=== PATIENT | male | born 1940 | race Caucasian/White ===

== ENCOUNTER 2016-06-20 11:48 | Inpatient (IN) | payer OTHER ==
[~2016-06-20] VITALS: Ht 170.2 cm; Wt 76.0 kg
[2016-06-20] MEDS ORDERED: SODIUM CHLORIDE 0.9% 1000ML 1,000 ML IV STA (13:53)
[2016-06-20] MEDS ORDERED: SODIUM CHLORIDE 0.9% 1000ML 250 ML IV STA (13:53)
--- NOTE | 2016-06-20 14:15 | DIAGNOSTIC IMAGING REPORT ---
CHEST ONE VIEW PORTABLE CLINICAL HISTORY: Atypical chest pain. Cold symptoms. COMPARISON STUDY: No previous studies for comparison. FINDINGS: The heart is mildly enlarged. There is no failure. There is no focal pulmonary consolidation. There are no pleural effusions.[ IMPRESSION: Mild cardiomegaly. No acute findings. Electronically signed by: Keaton Ruiz M.D. 06/20/2016 2:14 PM Dictated Date/Time: 06/20/2016 2:13 PM
[2016-06-20 14:18] LABS: BASO % 0.1 %; BASO ABS # 0.01 K/uL (0-0.2); COMPLETE YES; EOS % 0.3 %; IG% 0.3 %; LYMPH % 9.6 %; LYMPH ABS # 1.04 K/uL (1.2-3.4); MEAN CELL VOLUME 90.2 fL (80-100); MEAN CORPUSCULAR HEMOGLOBIN 31.2 pg (25-34); MEAN CORPUSCULAR HGB CONC 34.6 g/dl (32-36); MEAN PLATELET VOLUME 9.8 fL (7.4-10.4); MONO % 11.5 %; NEUT % 78.2 %; PLATELET COUNT 177 K/uL (130-400); WHITE BLOOD COUNT 10.79 K/uL (4.8-10.8)
[2016-06-20 14:27] LABS: INR 1.5 (0.9-1.1); PARTIAL THROMBOPLASTIN RATIO 1.6; PROTHROMBIN TIME (PATIENT) 16.3 SECONDS (9.0-12.0)
[2016-06-20 14:42] LABS: CREATININE 0.94 mg/dl (0.60-1.40)
[2016-06-20 14:43] LABS: BUN/CREATININE RATIO 12.1 (10-20); CALCIUM 8.6 mg/dl (8.5-10.1); POTASSIUM 3.4 mmol/L (3.5-5.1)
[2016-06-20] MEDS ORDERED: LNX125 PO (14:47)
[2016-06-20] MEDS ORDERED: LEVO88TA PO (14:47)
[2016-06-20] MEDS ORDERED: POTA8CAP6 PO (14:47)
[2016-06-20] MEDS ORDERED: CARV3.12 PO (14:47)
[2016-06-20] MEDS ORDERED: WARF4TAB8 PO (14:47)
[2016-06-20] MEDS ORDERED: WARF2TAB8 PO (14:47)
[2016-06-20 14:48] LABS: CKMB/CK RATIO 1.1 (0-3.0)
[2016-06-20] MEDS ORDERED: OPTIRAY 320 IV PRN (16:45)
--- NOTE | 2016-06-20 17:35 | DIAGNOSTIC IMAGING REPORT ---
CT OF THE ABDOMEN AND PELVIS WITH CONTRAST CLINICAL HISTORY: Constipation. Pain. Evaluate for rectal abscess or bowel obstruction. COMPARISON STUDY: None. TECHNIQUE: Following IV administration of 116 mL of [id number], axial images of the abdomen and pelvis were obtained from the lung bases to the proximal femurs. Images were reviewed in the axial, sagittal, and coronal planes. IV contrast was administered without complication. CT DOSE: 658.20 mGycm FINDINGS: Visualized portions of the lower chest demonstrate moderate cardiomegaly. The liver, spleen, adrenal glands and pancreas are unremarkable. There is multifocal scarring within the kidneys. There is no hydronephrosis. There is no evidence for a bowel obstruction. The caliber of small and large bowel is normal. There are prominent bilateral inguinal lymph nodes, the upper limits of normal for size. There is mild perirectal and perianal infiltration which extends into both buttocks, slightly greater on the right. Note is made of a small 1.5 x 1 cm subcutaneous gas and fluid containing collection of the medial right buttock. No additional fluid collection is identified on this exam. There may be mild rectal wall thickening which is accentuated by underdistention. No suspicious osseous lesions are present. There is severe arthritis of the left hip with flattening of the femoral head and complete loss of the joint space. There is moderate joint space narrowing of the right hip with mixed subchondral lucency and sclerosis within the right femoral head. The bladder is moderately distended. IMPRESSION: 1. Small 1.5 x 1 cm subcutaneous fluid and gas containing collection within the medial fold of the right buttock which reflects a tiny buttock/perianal abscess. Moderate adjacent infiltration suggests cellulitis. Possible tiny associated right perianal fistula. Mild rectal wall thickening. 2. No bowel obstruction. 3. Moderate distention of the bladder. Electronically signed by: Yao Velez M.D. 06/20/2016 5:34 PM Dictated Date/Time: 06/20/2016 5:26 PM
[2016-06-20] MEDS ORDERED: AZTREONAM IV 2,000 MG in DEXTROSE 5% 100ML 100 ML IV STA (17:59)
[2016-06-20] MEDS ORDERED: CLINDAMYCIN IV 900 MG in DEXTROSE 5% ADD-VANTAGE 100ML 100 ML IV ONE (18:00)
[2016-06-20] MEDS ORDERED: ONDANSETRON INJ 2 MG/ML 2 ML VIAL IV PRN (18:45)
[2016-06-20] MEDS ORDERED: ACETAMINOPHEN 325 MG TAB PO PRN (18:45)
--- NOTE | 2016-06-20 19:08 | History and Physical ---
History & Physical Date & Time of Service: Jun 20, 2016 at 18:56 Chief Complaint: Bad Cold Primary Care Physician: Isaac Still M.D. History of Present Illness Source: patient pt is a 75 year old male who presents to ER for 2 days history rectal pain, pt denies fever, no diarrhea, Family History Patient reports no known family medical history. Social History Smoking Status: Never Smoker Allergies Coded Allergies: Amoxicillin (Verified Allergy, Unknown, ., 06/20/16) Cephalexin (Verified Allergy, Unknown, ., 06/20/16) Clavulanic Acid (Verified Allergy, Unknown, ., 06/20/16) Penicillins (Verified Allergy, Unknown, ., 06/20/16) Home Medications Scheduled Atorvastatin (Lipitor), 10 MG PO DAILY Carvedilol (Coreg), 3.125 MG PO BID Digoxin (Digoxin), 0.125 MG PO DAILY Levothyroxine Sodium (Synthroid), 88 MCG PO DAILY Potassium Chloride (Klor-Con Ext Rel), 8 MEQ PO BID Spironolactone (Spironolactone), 25 MG PO BID Warfarin Sod (Jantoven), 2 MG PO Q2D Warfarin Sod (Jantoven), 4 MG PO Q2D Review of Systems Constitutional: No chills, No fatigue, No fever, No problem reported, No sweats , No weakness, No weight loss Respiratory: No cough, No dyspnea at rest, No dyspnea on exertion, No hemoptysis, No problem reported, No shortness of breath, No sputum, No wheezing Cardiovascular: No PND, No chest pain, No claudication, No edema, No orthopnea , No palpitations, No problem reported Abdomen: No GI bleeding, No constipation, No diarrhea, No nausea, No pain, No problem reported, No vomiting Musculoskeletal: No calf pain, No joint pain, No muscle pain, No problem reported, No swelling Genitourinary - Male: No dysuria, No hematuria, No impotence, No lesions, No penile discharge, No problem reported, No urinary frequency, No urinary hesitancy, No urinary incontinence, No urinary retention, No urinary urgency Neurologic: No balance problems, No memory loss, No numbness/tingling, No paralysis, No problem reported, No vertigo, No weakness Psychiatric: No anhedonism, No anxiety, No depression symptoms, No insomnia, No problem reported, No substance abuse Endocrine: No excessive thirst, No excessive urination, No fatigue, No problem reported Physical Exam Vital Signs Date Time Temp Pulse Resp B/P Pulse Ox O2 Delivery O2 Flow Rate FiO2 06/20/16 17:56 95 06/20/16 17:53 90 41 108/64 94 06/20/16 16:43 89 30 94 06/20/16 16:38 86 23 95 06/20/16 16:33 101 29 94 06/20/16 16:28 98 34 95 06/20/16 16:23 102 19 94 06/20/16 16:18 98 39 93 06/20/16 16:13 91 41 94 06/20/16 16:08 100 12 95 06/20/16 16:03 90 29 94 06/20/16 15:58 85 38 96 06/20/16 15:53 91 41 95 06/20/16 15:48 95 23 93 06/20/16 15:43 89 26 95 06/20/16 15:43 91 22 135/83 96 Room Air 06/20/16 15:41 135/83 06/20/16 15:38 96 23 06/20/16 15:33 92 41 06/20/16 15:28 90 37 06/20/16 15:23 82 37 06/20/16 15:18 94 32 06/20/16 15:13 86 35 06/20/16 15:08 90 30 06/20/16 15:03 85 38 06/20/16 14:58 87 23 06/20/16 14:53 88 34 06/20/16 14:48 84 36 06/20/16 14:43 83 38 06/20/16 14:38 94 24 06/20/16 14:33 100 21 06/20/16 14:28 95 40 06/20/16 14:23 86 23 06/20/16 14:18 95 22 06/20/16 14:13 96 27 06/20/16 14:08 92 36 06/20/16 14:03 102 31 06/20/16 13:58 99 25 06/20/16 13:53 86 31 06/20/16 13:48 99 24 95 06/20/16 13:46 94 18 136/73 06/20/16 13:44 88 06/20/16 13:43 95 23 92 06/20/16 13:38 136/73 06/20/16 12:02 94 Room Air 06/20/16 11:57 37.2 92 20 121/74 94 Room Air General Appearance: WD/WN, no apparent distress Neck: supple Respiratory/Chest: chest non-tender, lungs clear Cardiovascular: regular rate, rhythm, no edema, no JVD Abdomen/GI: normal bowel sounds, non tender, soft, no organomegaly (some drainage from small perirectal abscess, some redness around abscess, ) Genitourinary - Male: normal male genitalia Extremities/Musculoskelatal: normal inspection, no calf tenderness, normal capillary refill Neurologic/Psych: alert, normal mood/affect Diagnostics Laboratory Results Results Past 24 Hours Test 06/20/16 13:53 06/20/16 14:00 06/20/16 14:04 06/20/16 14:17 Range/Units Creatine Kinase MB Ratio 1.1 0-3.0 White Blood Count 10.79 4.8-10.8 K/uL Red Blood Count 4.10 4.7-6.1 M/uL Hemoglobin 12.8 14.0-18.0 g/dL Hematocrit 37.0 42-52 % Mean Corpuscular Volume 90.2 80-100 fL Mean Corpuscular Hemoglobin 31.2 25-34 pg Mean Corpuscular Hemoglobin Concent 34.6 32-36 g/dl Platelet Count 177 130-400 K/uL Mean Platelet Volume 9.8 7.4-10.4 fL Neutrophils (%) (Auto) 78.2 % Lymphocytes (%) (Auto) 9.6 % Monocytes (%) (Auto) 11.5 % Eosinophils (%) (Auto) 0.3 % Basophils (%) (Auto) 0.1 % Neutrophils # (Auto) 8.44 1.4-6.5 K/uL Lymphocytes # (Auto) 1.04 1.2-3.4 K/uL Monocytes # (Auto) 1.24 0.11-0.59 K/uL Eosinophils # (Auto) 0.03 0-0.5 K/uL Basophils # (Auto) 0.01 0-0.2 K/uL RDW Standard Deviation 44.8 36.4-46.3 fL RDW Coefficient of Variation 13.5 11.5-14.5 % Immature Granulocyte % (Auto) 0.3 % Immature Granulocyte # (Auto) 0.03 0.00-0.02 K/uL Prothrombin Time 16.3 9.0-12.0 SECONDS Prothromb Time International Ratio 1.5 0.9-1.1 Activated Partial Thromboplast Time 42.5 21.0-31.0 SECONDS Partial Thromboplastin Ratio 1.6 Sodium Level 132 136-145 mmol/L Potassium Level 3.4 3.5-5.1 mmol/L Chloride Level 94 98-107 mmol/L Carbon Dioxide Level 24 21-32 mmol/L Anion Gap 14.0 3-11 mmol/L Blood Urea Nitrogen 11 7-18 mg/dl Creatinine 0.94 0.60-1.40 mg/dl Est Creatinine Clear Calc Drug Dose 65.5 ml/min Estimated GFR () 92.9 Estimated GFR (Non- 80.1 BUN/Creatinine Ratio 12.1 10-20 Random Glucose 98 70-99 mg/dl Calcium Level 8.6 8.5-10.1 mg/dl Total Bilirubin 1.6 0.2-1 mg/dl Direct Bilirubin 0.6 0-0.2 mg/dl Aspartate Amino Transf (AST/SGOT) 33 15-37 U/L Alanine Aminotransferase (ALT/SGPT) 17 12-78 U/L Alkaline Phosphatase 59 45-117 U/L Total Creatine Kinase 167 39-308 U/L Creatine Kinase MB 1.9 0.5-3.6 ng/ml Total Protein 8.0 6.4-8.2 gm/dl Albumin 3.3 3.4-5.0 gm/dl Lipase 152 73-393 U/L Digoxin Level 0.6 0.8-2.0 ng/ml Bedside Lactic Acid Venous 1.75 0.90-1.70 mmol/L Bedside Troponin I 0.000 0-0.045 ng/ml SP-[id number]-[id number]-Type Natriuretic Peptide 2014 0-900 pg/ml Test 06/20/16 17:10 06/20/16 18:43 Range/Units Influenza Type A Antigen Neg for Influ A NEG Influenza Type B Antigen Neg for Influ B NEG Microbiology Results 06/20/16 Blood Culture, Received Pending 06/20/16 Blood Culture, Received Pending Diagnostic Radiology CT scan-IMPRESSION: 1. Small 1.5 x 1 cm subcutaneous fluid and gas containing collection within the medial fold of the right buttock which reflects a tiny buttock/perianal abscess. Moderate adjacent infiltration suggests cellulitis. Possible tiny associated right perianal fistula. Mild rectal wall thickening. 2. No bowel obstruction. 3. Moderate distention of the bladder. Impression Assessment and Plan IMP perirectal abscess and cellulitis the abscess is silt-drainage, clindamycin 150 mg po q6h x 5 days F/U clinic next Saturday VTE Prophylaxis VTE Risk Assessment Done? Y/N: Yes Risk Level: Moderate
--- NOTE | 2016-06-20 19:17 | History and Physical ---
History & Physical Date & Time of Service: Jun 20, 2016 at 18:58 Chief Complaint: Unable to Urinate or Move Bowels Primary Care Physician: Isaac Still M.D. History of Present Illness 75 year old male who presents to the ER with reports of difficulty urinating and moving his bowels. Patient reports he has not urinated or moved his bowels in 3 days. Patient has a wound on the right medical buttocks which he reports has been there for over 30 years. He reports it opens up and drains on its own from time to time. He reports it opened and started to drain today. It is not painful. Patient reports a chronic cough for the past several months which has worsened over the past few days. He reports it is occasionally productive for clear sputum. He reports worsening shortness of breath on exertion. He denies chest pain. He reports mild lightheadedness but denies dizziness or syncopal events. He reports intermittent abdominal pain. No nausea or vomiting. He denies fever and chills. Patient has chronic edema to his BLLE (R>L) and redness /venous changes which he reports is unchanged. In the ER, patient was bladder scanned for 800cc. CT abd/pelvis was done that showed a small perirectal abscess. Labs are unremarkable. CXR is clear. Vitals are stable. Past Medical/Surgical History Medical Problems: (1) Atrial fibrillation Status: Chronic (2) CAD (coronary artery disease) Permanent Comment: s/p [facility] x [facility] ~ 2005, details unknown Status: Chronic (3) HTN (hypertension) Status: Chronic (4) Hypothyroidism Status: Chronic Surgical Problems: (1) History of cataract surgery Status: Chronic (2) History of colon resection Permanent Comment: for diverticulitis Status: Chronic Family History Patient reports no known family medical history. Social History Smoking Status: Never Smoker Alcohol Use: none Allergies Coded Allergies: Amoxicillin (Verified Allergy, Unknown, ., 06/20/16) Cephalexin (Verified Allergy, Unknown, ., 06/20/16) Clavulanic Acid (Verified Allergy, Unknown, ., 06/20/16) Penicillins (Verified Allergy, Unknown, ., 06/20/16) Home Medications Scheduled Atorvastatin (Lipitor), 10 MG PO DAILY Carvedilol (Coreg), 3.125 MG PO BID Digoxin (Digoxin), 0.125 MG PO DAILY Levothyroxine Sodium (Synthroid), 88 MCG PO DAILY Potassium Chloride (Klor-Con Ext Rel), 8 MEQ PO BID Spironolactone (Spironolactone), 25 MG PO BID Warfarin Sod (Jantoven), 2 MG PO Q2D Warfarin Sod (Aprtoven), 4 MG PO Q2D Review of Systems 10 point review of systems was completed with the pertinent positives and negatives noted per the HPI Physical Exam Vital Signs Date Time Temp Pulse Resp B/P Pulse Ox O2 Delivery O2 Flow Rate FiO2 06/20/16 17:56 95 06/20/16 17:53 90 41 108/64 94 06/20/16 16:43 89 30 94 06/20/16 16:38 86 23 95 06/20/16 16:33 101 29 94 06/20/16 16:28 98 34 95 06/20/16 16:23 102 19 94 06/20/16 16:18 98 39 93 06/20/16 16:13 91 41 94 06/20/16 16:08 100 12 95 06/20/16 16:03 90 29 94 06/20/16 15:58 85 38 96 06/20/16 15:53 91 41 95 06/20/16 15:48 95 23 93 06/20/16 15:43 89 26 95 06/20/16 15:43 91 22 135/83 96 Room Air 06/20/16 15:41 135/83 06/20/16 15:38 96 23 06/20/16 15:33 92 41 06/20/16 15:28 90 37 06/20/16 15:23 82 37 06/20/16 15:18 94 32 06/20/16 15:13 86 35 06/20/16 15:08 90 30 06/20/16 15:03 85 38 06/20/16 14:58 87 23 06/20/16 14:53 88 34 06/20/16 14:48 84 36 06/20/16 14:43 83 38 06/20/16 14:38 94 24 06/20/16 14:33 100 21 06/20/16 14:28 95 40 06/20/16 14:23 86 23 06/20/16 14:18 95 22 06/20/16 14:13 96 27 06/20/16 14:08 92 36 06/20/16 14:03 102 31 06/20/16 13:58 99 25 06/20/16 13:53 86 31 06/20/16 13:48 99 24 95 06/20/16 13:46 94 18 136/73 06/20/16 13:44 88 06/20/16 13:43 95 23 92 06/20/16 13:38 136/73 06/20/16 12:02 94 Room Air 06/20/16 11:57 37.2 92 20 121/74 94 Room Air General Appearance: no apparent distress Head: normocephalic Eyes: normal inspection ENT: hearing grossly normal Neck: supple, no JVD Respiratory/Chest: lungs clear, no respiratory distress, + decreased breath sounds Cardiovascular: + irregularly irregular (rate controlled), + pertinent finding (+1-2 edema BLLE) Abdomen/GI: normal bowel sounds, non tender, soft Extremities/Musculoskelatal: normal inspection, no calf tenderness Neurologic/Psych: no motor/sensory deficits, alert, normal mood/affect, oriented x 3 Skin: + pertinent finding (ulcer noted to right medial buttock ~ rosa size with surrounding edema and erythema, bloody drainage noted on brief; BLLE with chronic venous changes and reddness) Diagnostics Laboratory Results Results Past 24 Hours Test 06/20/16 13:53 06/20/16 14:00 06/20/16 14:04 06/20/16 14:17 Range/Units Creatine Kinase MB Ratio 1.1 0-3.0 White Blood Count 10.79 4.8-10.8 K/uL Red Blood Count 4.10 4.7-6.1 M/uL Hemoglobin 12.8 14.0-18.0 g/dL Hematocrit 37.0 42-52 % Mean Corpuscular Volume 90.2 80-100 fL Mean Corpuscular Hemoglobin 31.2 25-34 pg Mean Corpuscular Hemoglobin Concent 34.6 32-36 g/dl Platelet Count 177 130-400 K/uL Mean Platelet Volume 9.8 7.4-10.4 fL Neutrophils (%) (Auto) 78.2 % Lymphocytes (%) (Auto) 9.6 % Monocytes (%) (Auto) 11.5 % Eosinophils (%) (Auto) 0.3 % Basophils (%) (Auto) 0.1 % Neutrophils # (Auto) 8.44 1.4-6.5 K/uL Lymphocytes # (Auto) 1.04 1.2-3.4 K/uL Monocytes # (Auto) 1.24 0.11-0.59 K/uL Eosinophils # (Auto) 0.03 0-0.5 K/uL Basophils # (Auto) 0.01 0-0.2 K/uL RDW Standard Deviation 44.8 36.4-46.3 fL RDW Coefficient of Variation 13.5 11.5-14.5 % Immature Granulocyte % (Auto) 0.3 % Immature Granulocyte # (Auto) 0.03 0.00-0.02 K/uL Prothrombin Time 16.3 9.0-12.0 SECONDS Prothromb Time International Ratio 1.5 0.9-1.1 Activated Partial Thromboplast Time 42.5 21.0-31.0 SECONDS Partial Thromboplastin Ratio 1.6 Sodium Level 132 136-145 mmol/L Potassium Level 3.4 3.5-5.1 mmol/L Chloride Level 94 98-107 mmol/L Carbon Dioxide Level 24 21-32 mmol/L Anion Gap 14.0 3-11 mmol/L Blood Urea Nitrogen 11 7-18 mg/dl Creatinine 0.94 0.60-1.40 mg/dl Est Creatinine Clear Calc Drug Dose 65.5 ml/min Estimated GFR () 92.9 Estimated GFR (Non- 80.1 BUN/Creatinine Ratio 12.1 10-20 Random Glucose 98 70-99 mg/dl Calcium Level 8.6 8.5-10.1 mg/dl Total Bilirubin 1.6 0.2-1 mg/dl Direct Bilirubin 0.6 0-0.2 mg/dl Aspartate Amino Transf (AST/SGOT) 33 15-37 U/L Alanine Aminotransferase (ALT/SGPT) 17 12-78 U/L Alkaline Phosphatase 59 45-117 U/L Total Creatine Kinase 167 39-308 U/L Creatine Kinase MB 1.9 0.5-3.6 ng/ml Total Protein 8.0 6.4-8.2 gm/dl Albumin 3.3 3.4-5.0 gm/dl Lipase 152 73-393 U/L Digoxin Level 0.6 0.8-2.0 ng/ml Bedside Lactic Acid Venous 1.75 0.90-1.70 mmol/L Bedside Troponin I 0.000 0-0.045 ng/ml ZY-[id number]-[id number]-Type Natriuretic Peptide 2014 0-900 pg/ml Test 06/20/16 17:10 06/20/16 18:43 Range/Units Influenza Type A Antigen Neg for Influ A NEG Influenza Type B Antigen Neg for Influ B NEG Microbiology Results 06/20/16 Blood Culture, Received Pending 06/20/16 Blood Culture, Received Pending Diagnostic Radiology CXR IMPRESSION: Mild cardiomegaly. No acute findings. CT ABD/PELVIS IMPRESSION: 1. Small 1.5 x 1 cm subcutaneous fluid and gas containing collection within the medial fold of the right buttock which reflects a tiny buttock/perianal abscess. Moderate adjacent infiltration suggests cellulitis. Possible tiny associated right perianal fistula. Mild rectal wall thickening. 2. No bowel obstruction. 3. Moderate distention of the bladder. Impression Assessment and Plan PERIRECTAL ABSCESS - admit to med/surg - patient presenting with constipation and urinary retention x 3 days; found to have draining perirectal abscess (chronic per patient) - afebrile, normal WBC, vitals stable; POC lactic acid mildly elevated, will check serum; gentle IVF - due to allergies will start patient on Clindamycin and Azactam - general surgery consult - no need for I&D currently as abscess is spontaneously draining - blood and wound cultures URINARY RETENTION - harris placed in ED - check U/A and culture - urology consult ? URI - patient reports cough x 3 days - rapid flu negative, will check PCR - CXR clear; afebrile, no leukocytosis - likely viral ATRIAL FIBRILLATION - rate controlled on dig and metoprolol, continue both - on Coumadin, INR 1.5 - dose Coumadin accordingly CAD - appears stable, no reports of chest pain - continue beta sunny and statin - follows with Dr. Vasquez HTN - BP controlled, continue carvedilol - holding spironolactone while giving IVF HYPOTHYROIDISM - continue levothyroxine DVT PROPHYLAXIS - on Coumadin CODE STATUS - Patient is a DNR as per my discussion with him. DISPO - In my clinical judgment this beneficiary meets acute admission criteria, established by [facility], that includes being hospitalized through two midnights. - May need short term rehab placement - PT/OT, case management consults placed ADDENDUM: This is a 75 year old male who presented to the ER for multiple reasons including a perirectal abscess, urinary retention, cough, and constipation; currently he is stable in bed, resting comfortably, cough persists. For the perirectal abscess - general surgery states they will not drain this, it is draining on its own; continue Clinda + Aztreonam; we can switch to PO clinda x 5 days on discharge for the urinary retention - currently with Harris in place - will consult urology for further input For A. Fib - continue Coumadin, dig, etc. PT/OT - will need rehab VTE Prophylaxis VTE Risk Assessment Done? Y/N: Yes Risk Level: Moderate
[2016-06-20 19:40] VITALS: BP 117/70; PULSE 100; TEMP 37.2; O2SAT 92; Ht 170.2 cm; Wt 76.0 kg
[2016-06-20] MEDS ORDERED: POTASSIUM CHLORIDE 20 MEQ TABCR PO ONE (20:30)
[2016-06-20] MEDS: SODIUM CHLORIDE 0.9% 1000ML 1,000 ML IV SCH (20:30)
[2016-06-20] MEDS ORDERED: DIGOXIN 0.125 MG TAB PO ONE (20:30)
[2016-06-20 21:30] VITALS: BP 111/65; PULSE 74
[2016-06-20] MEDS: WARFARIN SOD 4 MG TAB PO SCH (21:34)
[2016-06-20] MEDS: DOCUSATE SODIUM 100 MG CAP PO SCH (21:34)
[2016-06-20] MEDS: CARVEDILOL 3.125 MG TAB PO SCH (21:37)
[2016-06-20] MEDS: POLYETHYLENE (MIRALAX) 17 GM PACK PO SCH (21:41)
[2016-06-20] MEDS ORDERED: BACITRACIN OINT 15 GM TUBE EXT ONE (22:45)
[2016-06-20 22:55] VITALS: BP 106/69; PULSE 75; TEMP 36.8; O2SAT 93
[2016-06-20 22:55] LABS: URINE APPEARANCE CLEAR (CLEAR); URINE BILIRUBIN NEG (NEG); URINE COLOR YELLOW; URINE EPITHELIAL CELL AUTO 20-30 /lpf (0-5); URINE NITRITE NEG (NEG); URINE PH 5.5 (4.5-7.5); URINE SPECIFIC GRAVITY 1.042 (1.000-1.030); UROBILINOGEN POS (NEG)
[2016-06-20 22:56] LABS: MANUAL MICROSCOPIC REQUIRED? NO; REVIEW REQ? NO
[2016-06-21] VITALS (7 sets, daily range): BP systolic 101–125; BP diastolic 59–75; PULSE 64–95; TEMP 36.4–36.8; O2SAT 92–97
[2016-06-21] MEDS: AZTREONAM IV 1,000 MG in DEXTROSE 5% 100ML 100 ML IV SCH ×3 (03:25→19:24)
[2016-06-21] MEDS: CLINDAMYCIN IV 600 MG in DEXTROSE 5% ADD-VANTAGE 50ML 50 ML IV SCH ×3 (04:28→20:41)
[2016-06-21 05:37] LABS: INR 1.9 (0.9-1.1); PROTHROMBIN TIME (PATIENT) 20.8 SECONDS (9.0-12.0)
[2016-06-21] MEDS: LEVOTHYROXINE 88 MCG TAB PO SCH (05:44)
[2016-06-21 05:58] LABS: BUN/CREATININE RATIO 15.9 (10-20); CALCIUM 7.9 mg/dl (8.5-10.1); CREATININE 0.7 mg/dl (0.60-1.40); POTASSIUM 3.2 mmol/L (3.5-5.1)
--- NOTE | 2016-06-21 06:39 | Surgery Progress Note ---
Surgery Progress Note Date of Service Jun 21, 2016. Subjective + feeling well pt is doing better, less rectal pain, the wound is less drainage, Objective Vital Signs: Date Time Temp Pulse Resp B/P Pulse Ox O2 Delivery O2 Flow Rate FiO2 06/21/16 03:30 36.8 95 17 103/69 95 Room Air 06/21/16 00:37 36.7 75 17 101/59 93 06/21/16 00:05 Room Air 06/20/16 22:55 36.8 75 17 106/69 93 Room Air 06/20/16 21:36 74 06/20/16 21:30 74 111/65 06/20/16 19:45 95 41 108/64 94 06/20/16 19:40 92 Room Air 06/20/16 19:40 37.2 100 16 117/70 92 Room Air 06/20/16 19:40 37.2 100 20 117/70 92 Room Air 06/20/16 17:56 95 06/20/16 17:53 90 41 108/64 94 06/20/16 16:43 89 30 94 06/20/16 16:38 86 23 95 06/20/16 16:33 101 29 94 06/20/16 16:28 98 34 95 06/20/16 16:23 102 19 94 06/20/16 16:18 98 39 93 06/20/16 16:13 91 41 94 06/20/16 16:08 100 12 95 06/20/16 16:03 90 29 94 06/20/16 15:58 85 38 96 06/20/16 15:53 91 41 95 06/20/16 15:48 95 23 93 06/20/16 15:43 89 26 95 06/20/16 15:43 91 22 135/83 96 Room Air 06/20/16 15:41 135/83 06/20/16 15:38 96 23 06/20/16 15:33 92 41 06/20/16 15:28 90 37 06/20/16 15:23 82 37 06/20/16 15:18 94 32 06/20/16 15:13 86 35 06/20/16 15:08 90 30 06/20/16 15:03 85 38 06/20/16 14:58 87 23 06/20/16 14:53 88 34 06/20/16 14:48 84 36 06/20/16 14:43 83 38 06/20/16 14:38 94 24 06/20/16 14:33 100 21 06/20/16 14:28 95 40 06/20/16 14:23 86 23 06/20/16 14:18 95 22 06/20/16 14:13 96 27 06/20/16 14:08 92 36 06/20/16 14:03 102 31 06/20/16 13:58 99 25 06/20/16 13:53 86 31 06/20/16 13:48 99 24 95 06/20/16 13:46 94 18 136/73 06/20/16 13:44 88 06/20/16 13:43 95 23 92 06/20/16 13:38 136/73 06/20/16 12:02 94 Room Air 06/20/16 11:57 37.2 92 20 121/74 94 Room Air General Appearance: WD/WN Head: normocephalic Neck: supple Respiratory/Chest: chest non-tender Cardiovascular: regular rate, rhythm, no edema, no gallop, no JVD Abdomen: normal bowel sounds, non tender, non distended, soft Extremities: normal range of motion, non-tender, normal inspection Laboratory Results: Results Past 24 Hours Test 06/20/16 13:53 06/20/16 14:00 06/20/16 14:04 06/20/16 14:17 Range/Units Creatine Kinase MB Ratio 1.1 0-3.0 White Blood Count 10.79 4.8-10.8 K/uL Red Blood Count 4.10 4.7-6.1 M/uL Hemoglobin 12.8 14.0-18.0 g/dL Hematocrit 37.0 42-52 % Mean Corpuscular Volume 90.2 80-100 fL Mean Corpuscular Hemoglobin 31.2 25-34 pg Mean Corpuscular Hemoglobin Concent 34.6 32-36 g/dl Platelet Count 177 130-400 K/uL Mean Platelet Volume 9.8 7.4-10.4 fL Neutrophils (%) (Auto) 78.2 % Lymphocytes (%) (Auto) 9.6 % Monocytes (%) (Auto) 11.5 % Eosinophils (%) (Auto) 0.3 % Basophils (%) (Auto) 0.1 % Neutrophils # (Auto) 8.44 1.4-6.5 K/uL Lymphocytes # (Auto) 1.04 1.2-3.4 K/uL Monocytes # (Auto) 1.24 0.11-0.59 K/uL Eosinophils # (Auto) 0.03 0-0.5 K/uL Basophils # (Auto) 0.01 0-0.2 K/uL RDW Standard Deviation 44.8 36.4-46.3 fL RDW Coefficient of Variation 13.5 11.5-14.5 % Immature Granulocyte % (Auto) 0.3 % Immature Granulocyte # (Auto) 0.03 0.00-0.02 K/uL Prothrombin Time 16.3 9.0-12.0 SECONDS Prothromb Time International Ratio 1.5 0.9-1.1 Activated Partial Thromboplast Time 42.5 21.0-31.0 SECONDS Partial Thromboplastin Ratio 1.6 Sodium Level 132 136-145 mmol/L Potassium Level 3.4 3.5-5.1 mmol/L Chloride Level 94 98-107 mmol/L Carbon Dioxide Level 24 21-32 mmol/L Anion Gap 14.0 3-11 mmol/L Blood Urea Nitrogen 11 7-18 mg/dl Creatinine 0.94 0.60-1.40 mg/dl Est Creatinine Clear Calc Drug Dose 65.5 ml/min Estimated GFR () 92.9 Estimated GFR (Non- 80.1 BUN/Creatinine Ratio 12.1 10-20 Random Glucose 98 70-99 mg/dl Calcium Level 8.6 8.5-10.1 mg/dl Magnesium Level 2.0 1.8-2.4 mg/dl Total Bilirubin 1.6 0.2-1 mg/dl Direct Bilirubin 0.6 0-0.2 mg/dl Aspartate Amino Transf (AST/SGOT) 33 15-37 U/L Alanine Aminotransferase (ALT/SGPT) 17 12-78 U/L Alkaline Phosphatase 59 45-117 U/L Total Creatine Kinase 167 39-308 U/L Creatine Kinase MB 1.9 0.5-3.6 ng/ml Total Protein 8.0 6.4-8.2 gm/dl Albumin 3.3 3.4-5.0 gm/dl Lipase 152 73-393 U/L Digoxin Level 0.6 0.8-2.0 ng/ml Bedside Lactic Acid Venous 1.75 0.90-1.70 mmol/L Bedside Troponin I 0.000 0-0.045 ng/ml NK-Bmg-[id number]-Type Natriuretic Peptide 2014 0-900 pg/ml Test 06/20/16 17:10 06/20/16 22:20 06/20/16 22:30 06/21/16 05:10 Range/Units Influenza Type A Antigen Neg for Influ A NEG Influenza Type B Antigen Neg for Influ B NEG Lactic Acid Level 1.4 0.4-2.0 mmol/L Urine Color YELLOW Urine Appearance CLEAR CLEAR Urine pH 5.5 4.5-7.5 Urine Specific [place] 1.042 1.000-1.030 Urine Protein TRACE NEG Urine Glucose (UA) NEG NEG Urine Ketones NEG NEG Urine Occult Blood 2+ NEG Urine Nitrite NEG NEG Urine Bilirubin NEG NEG Urine Urobilinogen POS NEG Urine Leukocyte Esterase SMALL NEG Urine WBC (Auto) 10-30 0-5 /hpf Urine RBC (Auto) 10-30 0-4 /hpf Urine Hyaline Casts (Auto) 1-5 0-5 /lpf Urine Epithelial Cells (Auto) 20-30 0-5 /lpf Urine Bacteria (Auto) NEG NEG Prothrombin Time 20.8 9.0-12.0 SECONDS Prothromb Time International Ratio 1.9 0.9-1.1 Sodium Level 134 136-145 mmol/L Potassium Level 3.2 3.5-5.1 mmol/L Chloride Level 98 98-107 mmol/L Carbon Dioxide Level 26 21-32 mmol/L Anion Gap 10.0 3-11 mmol/L Blood Urea Nitrogen 11 7-18 mg/dl Creatinine 0.70 0.60-1.40 mg/dl Est Creatinine Clear Calc Drug Dose 87.9 ml/min Estimated GFR () 108.5 Estimated GFR (Non- 93.6 BUN/Creatinine Ratio 15.9 10-20 Random Glucose 108 70-99 mg/dl Calcium Level 7.9 8.5-10.1 mg/dl Microbiology Results 06/20/16 Blood Culture, Received Pending 06/20/16 Blood Culture, Received Pending 06/20/16 Urine Culture, Received Pending 06/20/16 Urine Culture, Received Pending Assessment & Plan F/U perirectal abscess apply bacitricin on rectal area once a day continue antibiotic treatment will F/U
[2016-06-21 06:48] LABS: HEMATOCRIT 31.3 % (42-52); MEAN CELL VOLUME 91.3 fL (80-100); MEAN CORPUSCULAR HEMOGLOBIN 31.2 pg (25-34); MEAN CORPUSCULAR HGB CONC 34.2 g/dl (32-36); MEAN PLATELET VOLUME 10.4 fL (7.4-10.4); PLATELET COUNT 172 K/uL (130-400); RED BLOOD COUNT 3.43 M/uL (4.7-6.1); WHITE BLOOD COUNT 8.64 K/uL (4.8-10.8)
[2016-06-21] MEDS: BACITRACIN OINT 15 GM TUBE EXT SCH (08:03)
[2016-06-21] MEDS: SODIUM CHLORIDE 0.9% 1000ML 1,000 ML IV SCH ×2 (08:03→20:45)
[2016-06-21] MEDS: POTASSIUM CHLR 10 MEQ / WTR 10 MEQ in PREMIXED WATER 100 ML IV SCH ×4 (08:08→12:44)
[2016-06-21] MEDS: CARVEDILOL 3.125 MG TAB PO SCH ×2 (09:05→20:45)
[2016-06-21] MEDS: DOCUSATE SODIUM 100 MG CAP PO SCH ×2 (09:05→20:45)
[2016-06-21] MEDS: ATORVASTATIN 10 MG TAB PO SCH (09:06)
[2016-06-21] MEDS: POLYETHYLENE (MIRALAX) 17 GM PACK PO SCH (09:06)
[2016-06-21] MEDS ORDERED: VANCOMYCIN INJ 1,000 MG in SODIUM CHLORIDE 0.9% 250ML 250 ML IV STA (14:56)
[2016-06-21] MEDS ORDERED: VANCOMYCIN CONSULT ACTIVE PRN (15:15)
[2016-06-21] MEDS ORDERED: VANCOMYCIN INJ 1,900 MG in SODIUM CHLORIDE 0.9% 500ML 500 ML IV ONE (15:30)
--- NOTE | 2016-06-21 15:32 | Pharmacy Progress Note ---
Pharmacy Antibiotic Consult Date of Service: Jun 21, 2016. Pharmacy Dosing Scope Pharmacy is consulted to initiate vancomycin IV dosing therapy, order appropriate labs and adjust drug dose/frequency. Subjective The patient is a 75 year old male admitted on Jun 20, 2016 at 18:39. Objective Height (Feet): 5 Height (Inches): 7.00 Weight (Kilograms): 76.000 Lab Results (24hrs): Laboratory Tests Test 06/21/16 05:10 BUN/Creatinine Ratio 15.9 Blood Urea Nitrogen 11 mg/dl Creatinine 0.70 mg/dl White Blood Count 8.64 K/uL Assessment & Plan Patient started on aztreonam and clindamycin for possible perirectal abscess. Pharmacy now consulted to start vancomycin. Cultures are still pending at this time. 04/23 BC growing Gm+ cocci. Vancomycin: * Will give LD of 1900 mg (~25 mg/kg) x 1 * Will start MD of 1100 mg (~15 mg/kg) iv q 10 hrs to achieve an estimated trough ~19 mcg/ml (goal 15-20 mcg/ml for abscess infection) * Estimated kinetics: t1/2~8.9 hrs, ke ~0.077, CrCl ~88 ml/min * Will order trough prior to the 0800 dose on 06/23 to ensure therapeutic Pharmacy will continue to follow and will adjust dose/frequency as necessary. Thank you
[2016-06-21] MEDS: WARFARIN SOD 4 MG TAB PO SCH (15:54)
[2016-06-21] MEDS: DIGOXIN 0.125 MG TAB PO SCH (15:55)
--- NOTE | 2016-06-21 16:51 | Progress Note ---
Subjective Date of Service: Jun 21, 2016. Subjective Pt evaluation today including: conversation w/ patient, physical exam, lab review, review of studies, review of inpatient medication list Saw/examined the patient in room 382 Doing well today, seated in a chair No problems/issues to note, denies any symptoms Very eager to go home Denies fevers/chills +cough improving Had bowel movement today Review of Systems Constitutional: No chills, No fever Respiratory: + cough, No dyspnea at rest, No dyspnea on exertion, No shortness of breath, No sputum, No wheezing Abdomen: No GI bleeding, No constipation, No diarrhea, No nausea, No pain, No vomiting Male : + dysuria, + incontinence, + urinary frequency, No hematuria, No nocturia more than once/night, No sexual dysfunction, No slowing stream Heme: No abnormal bleeding/bruising Medications Current Inpatient Medications Medications (Trade) Dose Ordered Sig/Baldo Route Start Time Stop Time Status Last Admin Dose Admin Ioversol (Optiray 320) 125 ml UD PRN IV 06/20/16 16:45 06/24/16 16:44 Acetaminophen (Tylenol Tab) 650 mg Q4H PRN PO 06/20/16 18:45 07/20/16 18:44 Ondansetron HCl 4 mg 4 mg Q6H PRN IV 06/20/16 18:45 07/20/16 18:44 Sodium Chloride 1,000 ml @ 80 mls/hr [id number] IV 06/20/16 20:30 07/20/16 20:29 06/21/16 08:03 80 MLS/HR Clindamycin Phosphate 600 mg/ Dextrose 54 ml @ 100 mls/hr Q8H IV 06/21/16 04:00 07/01/16 03:59 06/21/16 12:44 100 MLS/HR Aztreonam/Dextrose (Azactam IV/D5 100ml) 110 ml @ 100 mls/hr Q8H IV 06/21/16 03:00 07/01/16 02:59 06/21/16 11:08 100 MLS/HR Atorvastatin Calcium (Lipitor Tab) 10 mg DAILY PO 06/21/16 09:00 07/21/16 08:59 06/21/16 09:06 10 MG Carvedilol (Coreg Tab) 3.125 mg BID PO 06/20/16 21:00 07/20/16 20:59 06/21/16 09:05 3.125 MG Digoxin (Lanoxin Tab) 0.125 mg DAILY@1600 PO 06/21/16 16:00 07/21/16 15:59 06/21/16 15:55 0.125 MG Levothyroxine Sodium (Synthroid Tab) 88 mcg DAILYBB PO 06/21/16 06:00 07/21/16 05:59 06/21/16 05:44 88 MCG Warfarin Sodium (Coumadin Tab) 4 mg DAILY@16 PO 06/20/16 21:00 07/20/16 20:59 06/21/16 15:54 4 MG Polyethylene (Miralax Powder Packet) 17 gm DAILY PO 06/20/16 21:00 07/20/16 20:59 06/21/16 09:06 17 GM Docusate Sodium (coLACE CAP) 100 mg BID PO 06/20/16 21:00 07/20/16 20:59 06/21/16 09:05 100 MG Bacitracin (Bacitracin Oint) 1 appln DAILY EXT 06/21/16 09:00 06/29/16 08:59 06/21/16 08:03 1 APPLN Tamsulosin HCl 0.4 mg 0.4 mg HS PO 06/21/16 21:00 07/21/16 20:59 Vancomycin HCl/ Sodium Chloride (Vancomycin Inj/ Nss 250ml) 272 ml @ 125 mls/hr Q10H IV 06/22/16 02:00 07/01/16 01:59 Vancomycin HCl 1 ea 1 ea UD PRN N/A 06/21/16 15:15 07/21/16 15:14 Vancomycin HCl/ Sodium Chloride (Vancomycin Inj/ Nss 500ml) 538 ml @ 200 mls/hr TODAY@1530 ONCE IV 06/21/16 15:30 06/21/16 18:11 06/21/16 15:53 200 MLS/HR Objective Vital Signs Date Time Temp Pulse Resp B/P Pulse Ox O2 Delivery O2 Flow Rate FiO2 06/21/16 16:05 Room Air 06/21/16 15:55 70 06/21/16 15:03 36.6 64 20 119/75 97 Room Air 06/21/16 11:10 36.5 75 16 115/67 93 Room Air 06/21/16 09:29 Room Air 06/21/16 06:52 36.4 95 16 125/72 95 Room Air 06/21/16 03:30 36.8 95 17 103/69 95 Room Air 06/21/16 00:37 36.7 75 17 101/59 93 06/21/16 00:05 Room Air 06/20/16 22:55 36.8 75 17 106/69 93 Room Air 06/20/16 21:36 74 06/20/16 21:30 74 111/65 06/20/16 19:45 95 41 108/64 94 06/20/16 19:40 92 Room Air 06/20/16 19:40 37.2 100 16 117/70 92 Room Air 06/20/16 19:40 37.2 100 20 117/70 92 Room Air 06/20/16 17:56 95 06/20/16 17:53 90 41 108/64 94 Physical Exam General Appearance: + pertinent finding (elderly gentleman) ENT: + pertinent finding (edentulous; hard of hearing with hearing loss) Respiratory/Chest: chest non-tender, lungs clear, normal breath sounds, no respiratory distress, no accessory muscle use Cardiovascular: regular rate, rhythm, no edema, no murmur Abdomen: normal bowel sounds, non tender, soft, + pertinent finding (urinary catheter in place) Extremities: + pertinent finding (peripheral vascular disease) Neurologic/Psychiatric: no motor/sensory deficits, alert, normal mood/affect Laboratory Results Last 24 Hours Test 06/20/16 17:10 06/20/16 22:20 06/20/16 22:30 06/21/16 05:10 Influenza Type A Antigen Neg for Influ A Influenza Type B Antigen Neg for Influ B Lactic Acid Level 1.4 mmol/L Urine Color YELLOW Urine Appearance CLEAR Urine pH 5.5 Urine Specific [place] 1.042 Urine Protein TRACE Urine Glucose (UA) NEG Urine Ketones NEG Urine Occult Blood 2+ Urine Nitrite NEG Urine Bilirubin NEG Urine Urobilinogen POS Urine Leukocyte Esterase SMALL Urine WBC (Auto) 10-30 /hpf Urine RBC (Auto) 10-30 /hpf Urine Hyaline Casts (Auto) 1-5 /lpf Urine Epithelial Cells (Auto) 20-30 /lpf Urine Bacteria (Auto) NEG White Blood Count 8.64 K/uL Red Blood Count 3.43 M/uL Hemoglobin 10.7 g/dL Hematocrit 31.3 % Mean Corpuscular Volume 91.3 fL Mean Corpuscular Hemoglobin 31.2 pg Mean Corpuscular Hemoglobin Concent 34.2 g/dl RDW Standard Deviation 45.1 fL RDW Coefficient of Variation 13.5 % Platelet Count 172 K/uL Mean Platelet Volume 10.4 fL Prothrombin Time 20.8 SECONDS Prothromb Time International Ratio 1.9 Sodium Level 134 mmol/L Potassium Level 3.2 mmol/L Chloride Level 98 mmol/L Carbon Dioxide Level 26 mmol/L Anion Gap 10.0 mmol/L Blood Urea Nitrogen 11 mg/dl Creatinine 0.70 mg/dl Est Creatinine Clear Calc Drug Dose 87.9 ml/min Estimated GFR () 108.5 Estimated GFR (Non- 93.6 BUN/Creatinine Ratio 15.9 Random Glucose 108 mg/dl Calcium Level 7.9 mg/dl Assessment and Plan This is a 75 year old male who presented to the ER for multiple reasons including a perirectal abscess, urinary retention, cough, and constipation PERIRECTAL ABSCESS 3/2 appreciate general surgery input no need for I&D as it is draining on its own started on Azactam and Clindamycin Blood cultures positive today for gram positive cocci added Vancomycin for now awaiting sensitivities, if sensitive to Clinda can do five days of Clinda as per surgery follow cultures; d/c when we can switch to oral abx 06/20 - admit to med/surg - patient presenting with constipation and urinary retention x 3 days; found to have draining perirectal abscess (chronic per patient) - afebrile, normal WBC, vitals stable; POC lactic acid mildly elevated, will check serum; gentle IVF - due to allergies will start patient on Clindamycin and Azactam - general surgery consult - no need for I&D currently as abscess is spontaneously draining - blood and wound cultures URINARY RETENTION 3/2 urology consultation pending Flomax started as per urology UA and urine culture negative voiding trial as per urology 06/20 - harris placed in ED - check U/A and culture - urology consult ? URI 3/2 most likely viral in origin cough is already improving no need for abx for this upper respiratory tract infection 06/20 - patient reports cough x 3 days - rapid flu negative, will check PCR - CXR clear; afebrile, no leukocytosis - likely viral ATRIAL FIBRILLATION - rate controlled on dig and metoprolol, continue both - on Coumadin, INR 1.5 - dose Coumadin accordingly CAD - appears stable, no reports of chest pain - continue beta sunny and statin - follows with Dr. Vasquez HTN - BP controlled, continue carvedilol - holding spironolactone while giving IVF HYPOTHYROIDISM - continue levothyroxine DVT PROPHYLAXIS - on Coumadin CODE STATUS - Patient is a DNR as per my discussion with him. Would benefit from inpatient rehab - but patient refusing - wants to go home; lives with son and [id number] - at minimum, will need home health
[2016-06-21] MEDS: TAMSULOSIN HCL 0.4 MG CAP PO SCH (20:44)
--- NOTE | 2016-06-21 22:23 | Urology Consultation ---
History General Date of Service: Jun 21, 2016. Chief Complaint: retention Primary Care Physician: Isaac Still M.D. Pt seen a urologist before?: No History of Present Illness patient seen at 5:15 pm. His extended family is at bedside. Patient is feeling better and looking forward to going home soon. He does not report long standing urinary difficulty. He just had trouble last few days. He has an infection which drains adelina-rectally several times per year and make him weak and confused. He has a harris which was placed uneventfully in ER. His pain is gone. suggest flomax daily. his prostate is small on ct so no need for finasteride. suggest void trial tomorrow if still in hospital. Imaging Imaging: CT Laboratory Results Past 24 Hours Test 06/20/16 22:20 06/20/16 22:30 06/21/16 05:10 Range/Units Lactic Acid Level 1.4 0.4-2.0 mmol/L Urine Color YELLOW Urine Appearance CLEAR CLEAR Urine pH 5.5 4.5-7.5 Urine Specific [place] 1.042 1.000-1.030 Urine Protein TRACE NEG Urine Glucose (UA) NEG NEG Urine Ketones NEG NEG Urine Occult Blood 2+ NEG Urine Nitrite NEG NEG Urine Bilirubin NEG NEG Urine Urobilinogen POS NEG Urine Leukocyte Esterase SMALL NEG Urine WBC (Auto) 10-30 0-5 /hpf Urine RBC (Auto) 10-30 0-4 /hpf Urine Hyaline Casts (Auto) 1-5 0-5 /lpf Urine Epithelial Cells (Auto) 20-30 0-5 /lpf Urine Bacteria (Auto) NEG NEG White Blood Count 8.64 4.8-10.8 K/uL Red Blood Count 3.43 4.7-6.1 M/uL Hemoglobin 10.7 14.0-18.0 g/dL Hematocrit 31.3 42-52 % Mean Corpuscular Volume 91.3 80-100 fL Mean Corpuscular Hemoglobin 31.2 25-34 pg Mean Corpuscular Hemoglobin Concent 34.2 32-36 g/dl RDW Standard Deviation 45.1 36.4-46.3 fL RDW Coefficient of Variation 13.5 11.5-14.5 % Platelet Count 172 130-400 K/uL Mean Platelet Volume 10.4 7.4-10.4 fL Prothrombin Time 20.8 9.0-12.0 SECONDS Prothromb Time International Ratio 1.9 0.9-1.1 Sodium Level 134 136-145 mmol/L Potassium Level 3.2 3.5-5.1 mmol/L Chloride Level 98 98-107 mmol/L Carbon Dioxide Level 26 21-32 mmol/L Anion Gap 10.0 3-11 mmol/L Blood Urea Nitrogen 11 7-18 mg/dl Creatinine 0.70 0.60-1.40 mg/dl Est Creatinine Clear Calc Drug Dose 87.9 ml/min Estimated GFR () 108.5 Estimated GFR (Non- 93.6 BUN/Creatinine Ratio 15.9 10-20 Random Glucose 108 70-99 mg/dl Calcium Level 7.9 8.5-10.1 mg/dl Microbiology Results 06/20/16 Urine Culture - Preliminary, Resulted NO GROWTH - LESS THAN 1,000 COLONIES/... Labs were reviewed and are within normal limits unless listed below. Labs are available in the chart and at [facility] Past History heart disease, hypertension, other (venous stasis prblems R>>L legs ) Past Surgical History: other (many reconstructive suergeries right leg crush injury) Family History Patient reports no known family medical history. not significant at his age for this issue Social History Hx Tobacco Use In Past Year?: Yes (Chews tobacco) Alcohol: socially Drug use: none Marital status: Housing status: lives with family Occupation status: retired Allergies Coded Allergies: Amoxicillin (Verified Allergy, Unknown, ., 06/20/16) Cephalexin (Verified Allergy, Unknown, ., 06/20/16) Clavulanic Acid (Verified Allergy, Unknown, ., 06/20/16) Penicillins (Verified Allergy, Unknown, ., 06/20/16) Medications Home Medications: Home Meds and Scripts Medications Dose Route/Sig Max Daily Dose Days Date Category Dose Instructions Synthroid (Levothyroxine Sodium) 88 Mcg Tab 88 Mcg PO DAILY 06/20/16 Reported Lipitor (Atorvastatin Calcium) 10 Mg Tab 10 Mg PO DAILY 06/20/16 Reported Klor-Con Ext Rel (Potassium Chloride) 8 Meq Tabcr 8 Meq PO BID 06/20/16 Reported Jantoven (Warfarin Sodium) 4 Mg Tab 4 Mg PO Q2D 06/20/16 Reported STARTS ON DS WITH 4MG THEN ALTERNATES DOSES Jantoven (Warfarin Sodium) 2 Mg Tab 2 Mg PO Q2D 06/20/16 Reported STARTS ON SATURDAY WITH 4MG THEN ALTERNATES DOSES Digoxin 0.125 Mg Tab 0.125 Mg PO DAILY 06/20/16 Reported Coreg (Carvedilol) 3.125 Mg Tab 3.125 Mg PO BID 06/20/16 Reported Spironolactone 25 Mg Tab 25 Mg PO BID 06/20/16 Reported Inpatient Medications: Current Inpatient Medications Medications (Trade) Dose Ordered Sig/Baldo Route Start Time Stop Time Status Last Admin Dose Admin Ioversol (Optiray 320) 125 ml UD PRN IV 06/20/16 16:45 06/24/16 16:44 Acetaminophen (Tylenol Tab) 650 mg Q4H PRN PO 06/20/16 18:45 07/20/16 18:44 Ondansetron HCl 4 mg 4 mg Q6H PRN IV 06/20/16 18:45 07/20/16 18:44 Sodium Chloride 1,000 ml @ 80 mls/hr [id number] IV 06/20/16 20:30 07/20/16 20:29 06/21/16 08:03 80 MLS/HR Clindamycin Phosphate 600 mg/ Dextrose 54 ml @ 100 mls/hr Q8H IV 06/21/16 04:00 07/01/16 03:59 06/21/16 04:28 100 MLS/HR Aztreonam/Dextrose (Azactam IV/D5 100ml) 110 ml @ 100 mls/hr Q8H IV 06/21/16 03:00 07/01/16 02:59 06/21/16 03:25 100 MLS/HR Atorvastatin Calcium (Lipitor Tab) 10 mg DAILY PO 06/21/16 09:00 07/21/16 08:59 06/21/16 09:06 10 MG Carvedilol (Coreg Tab) 3.125 mg BID PO 06/20/16 21:00 07/20/16 20:59 06/21/16 09:05 3.125 MG Digoxin (Lanoxin Tab) 0.125 mg DAILY@1600 PO 06/21/16 16:00 07/21/16 15:59 Levothyroxine Sodium (Synthroid Tab) 88 mcg DAILYBB PO 06/21/16 06:00 4/1/17 05:59 06/21/16 05:44 88 MCG Warfarin Sodium (Coumadin Tab) 4 mg DAILY@16 PO 06/20/16 21:00 07/20/16 20:59 06/20/16 21:34 4 MG Polyethylene (Miralax Powder Packet) 17 gm DAILY PO 06/20/16 21:00 07/20/16 20:59 06/21/16 09:06 17 GM Docusate Sodium (coLACE CAP) 100 mg BID PO 06/20/16 21:00 07/20/16 20:59 06/21/16 09:05 100 MG Bacitracin 1 appln 1 appln DAILY EXT 06/21/16 09:00 06/29/16 08:59 06/21/16 08:03 1 APPLN Potassium Chloride/Prmx (Kcl 10 Meq / Wtr/Premixed Water) 100 ml @ 100 mls/hr Q1H IV 06/21/16 08:00 06/21/16 11:59 06/21/16 09:37 100 MLS/HR Review of Systems Review of Systems Constitutional: + chills, + fever, + weight loss Neurological: + dizzy Endocrine: + tired/sluggish, + too cold Gastrointestinal: + abdominal pain, + constipation Respiratory: + chronic cough, + see HPI, + shortness of breath Male : + urinary retention Physical Exam Vital Signs: Vital Signs Past 12 Hours Date Time Temp Pulse Resp B/P Pulse Ox O2 Delivery O2 Flow Rate FiO2 06/21/16 09:29 Room Air 06/21/16 06:52 36.4 95 16 125/72 95 Room Air 06/21/16 03:30 36.8 95 17 103/69 95 Room Air 06/21/16 00:37 36.7 75 17 101/59 93 06/21/16 00:05 Room Air Physical Exam: General Appearance: WD/WN, + thin Eyes: bilateral eyes normal inspection ENT: hearing grossly normal Neck: no adenopathy, no JVD, trachea midline Respiratory/Chest: + rhonchi, + pertinent finding (very severe cough during the interview) Extremities: + pertinent finding (severe dark discoloration of right leg noo ulcers, + pitting edema, left iwth milder edema and hemosiderin deposits) Neurologic/Psychiatric: alert, normal mood/affect, oriented x 3 Lymphatic: no adenopathy Assessment & Plan Assessment & Plan urinary retention suspect secondary to pain and infection of adelina-rectal abscess. on ct bladder thin walled and prostate small. suggest daily flomax and void trial in am.
--- NOTE | 2016-06-21 23:57 | EMERGENCY ROOM VISIT NOTE ---
History Report prepared by Esther: Coretta Arndt Under the Supervision of: Dr. Sanju Ge M.D. First contact with patient: 13:42 Chief Complaint: CONGESTION Stated Complaint: BAD COLD Nursing Triage Summary: Worsening tremors, cough. Weak. "I just cant get around." Denies CP but has "pains all over". Diffuse abd pain, hasnt ate "normal" for the past 3 days, cant swallow. Trouble with ears. History of Present Illness The patient is a 75 year old male who presents to the Emergency Room with complaints of worsening dry cough starting about a week ago. He also complains of weakness, chills, diffuse abdominal pain, decreased urinary output, and constipation. He has been having a discharge from his eyes for the past month and a half. He denies any fevers, or any other complaints. He's also had some rectal pain and discharge although he says this is been chronic. He denies any diarrhea. He's feeling diffusely weak but nothing focal. No headache neck pain or stiffness. No trauma or fall. His son says that he's had a functional decline. Source of History: patient, family Onset: about a week ago Position: other (global) Quality: other (cough) Timing: worsening Associated Symptoms: + abdominal pain (diffuse), + chills, No fevers Review of Systems See HPI for pertinent positives & negatives. A total of 10 systems reviewed and were otherwise negative. Past Medical & Surgical Medical Problems: (1) Atrial fibrillation (2) CAD (coronary artery disease) (3) HTN (hypertension) (4) Hypothyroidism Surgical Problems: (1) History of cataract surgery (2) History of colon resection Old medical records were attempted to be reviewed but there are no old records at this hospital. Nurse's notes were reviewed and I agree with. Apparently he does have a history of A. fib Family History Patient reports no known family medical history. Social History Smoking Status: Never Smoker Drug Use: none Marital Status: Occupation Status: retired Current/Historical Medications Scheduled Atorvastatin (Lipitor), 10 MG PO DAILY Carvedilol (Coreg), 3.125 MG PO BID Digoxin (Digoxin), 0.125 MG PO DAILY Levothyroxine Sodium (Synthroid), 88 MCG PO DAILY Potassium Chloride (Klor-Con Ext Rel), 8 MEQ PO BID Spironolactone (Spironolactone), 25 MG PO BID Warfarin Sod (Jantoven), 2 MG PO Q2D Warfarin Sod (Jantoven), 4 MG PO Q2D Allergies Coded Allergies: Amoxicillin (Verified Allergy, Unknown, ., 06/20/16) Cephalexin (Verified Allergy, Unknown, ., 06/20/16) Clavulanic Acid (Verified Allergy, Unknown, ., 06/20/16) Penicillins (Verified Allergy, Unknown, ., 06/20/16) Physical Exam Vital Signs Date Time Temp Pulse Resp B/P Pulse Ox O2 Delivery O2 Flow Rate FiO2 06/20/16 17:56 95 06/20/16 17:53 90 41 108/64 94 06/20/16 16:43 89 30 94 06/20/16 16:38 86 23 95 06/20/16 16:33 101 29 94 06/20/16 16:28 98 34 95 06/20/16 16:23 102 19 94 06/20/16 16:18 98 39 93 06/20/16 16:13 91 41 94 06/20/16 16:08 100 12 95 06/20/16 16:03 90 29 94 06/20/16 15:58 85 38 96 06/20/16 15:53 91 41 95 06/20/16 15:48 95 23 93 06/20/16 15:43 89 26 95 06/20/16 15:43 91 22 135/83 96 Room Air 06/20/16 15:41 135/83 06/20/16 15:38 96 23 06/20/16 15:33 92 41 06/20/16 15:28 90 37 06/20/16 15:23 82 37 06/20/16 15:18 94 32 06/20/16 15:13 86 35 06/20/16 15:08 90 30 06/20/16 15:03 85 38 06/20/16 14:58 87 23 06/20/16 14:53 88 34 06/20/16 14:48 84 36 06/20/16 14:43 83 38 06/20/16 14:38 94 24 06/20/16 14:33 100 21 06/20/16 14:28 95 40 06/20/16 14:23 86 23 06/20/16 14:18 95 22 06/20/16 14:13 96 27 06/20/16 14:08 92 36 06/20/16 14:03 102 31 06/20/16 13:58 99 25 06/20/16 13:53 86 31 06/20/16 13:48 99 24 95 06/20/16 13:46 94 18 136/73 06/20/16 13:44 88 06/20/16 13:43 95 23 92 06/20/16 13:38 136/73 06/20/16 12:02 94 Room Air 06/20/16 11:57 37.2 92 20 121/74 94 Room Air Physical Exam General: Non-ill appearing, dry hacking cough, in no acute distress. HEENT: Normal cephalic atraumatic. Pupils are equal round and reactive to light. Extraocular movements are intact. Oropharynx is pink with moist mucous membranes. No swelling of the mouth lips or tongue. Neck: Supple with a midline trachea. No meningeal signs or stiffness, no JVD or bruits. No Stridor. Chest: Clear to auscultation bilaterally. No wheezes or rhonchi. No increased work of breathing. Heart: regular rate and irregular rhythm. Abdomen: Soft, minimally diffusely tender, no evidence of incarcerated hernia, nondistended without rebound guarding or rigidity. Rectal: Some clear drainage from the rectum, laterally there is a small opening where there is some expressible pus consistent with either fistula or abscess draining. Extremities: No cyanosis or clubbing. No calf tenderness or assymetry. Chronic vascular changes of legs, chronic edema right grater than left which has been there for 50 years as per patient. Spine/Back. Non tender to palpation. No CVA tenderness Skin: Good turgor without rashes. Neurologic exam: Cranial nerves two through 12 are intact. Motor and sensation are intact and symmetrical throughout. Medical Decision & Procedures ER Provider Diagnostic Interpretation: X-ray results as stated below per interpretation by me and the radiologist: CHEST ONE VIEW PORTABLE CLINICAL HISTORY: Atypical chest pain. Cold symptoms. COMPARISON STUDY: No previous studies for comparison. FINDINGS: The heart is mildly enlarged. There is no failure. There is no focal pulmonary consolidation. There are no pleural effusions.[ IMPRESSION: Mild cardiomegaly. No acute findings. Electronically signed by: Keaton Ruiz M.D. 06/20/2016 2:14 PM Dictated Date/Time: 06/20/2016 2:[address] results as stated below per my review and radiologist interpretation: CT OF THE ABDOMEN AND PELVIS WITH CONTRAST CLINICAL HISTORY: Constipation. Pain. Evaluate for rectal abscess or bowel obstruction. COMPARISON STUDY: None. TECHNIQUE: Following IV administration of 116 mL of [id number], axial images of the abdomen and pelvis were obtained from the lung bases to the proximal femurs. Images were reviewed in the axial, sagittal, and coronal planes. IV contrast was administered without complication. CT DOSE: 658.20 mGycm FINDINGS: Visualized portions of the lower chest demonstrate moderate cardiomegaly. The liver, spleen, adrenal glands and pancreas are unremarkable. There is multifocal scarring within the kidneys. There is no hydronephrosis. There is no evidence for a bowel obstruction. The caliber of small and large bowel is normal. There are prominent bilateral inguinal lymph nodes, the upper limits of normal for size. There is mild perirectal and perianal infiltration which extends into both buttocks, slightly greater on the right. Note is made of a small 1.5 x 1 cm subcutaneous gas and fluid containing collection of the medial right buttock. No additional fluid collection is identified on this exam. There may be mild rectal wall thickening which is accentuated by underdistention. No suspicious osseous lesions are present. There is severe arthritis of the left hip with flattening of the femoral head and complete loss of the joint space. There is moderate joint space narrowing of the right hip with mixed subchondral lucency and sclerosis within the right femoral head. The bladder is moderately distended. IMPRESSION: 1. Small 1.5 x 1 cm subcutaneous fluid and gas containing collection within the medial fold of the right buttock which reflects a tiny buttock/perianal abscess. Moderate adjacent infiltration suggests cellulitis. Possible tiny associated right perianal fistula. Mild rectal wall thickening. 2. No bowel obstruction. 3. Moderate distention of the bladder. Electronically signed by: Yao Velez M.D. 06/20/2016 5:34 PM Dictated Date/Time: 06/20/2016 5:26 PM Laboratory Results Test 06/20/16 14:00 06/20/16 14:04 06/20/16 14:17 06/20/16 17:10 Immature Granulocyte % (Auto) 0.3 % White Blood Count 10.79 K/uL (4.8-10.8) Red Blood Count 4.10 M/uL (4.7-6.1) Hemoglobin 12.8 g/dL (14.0-18.0) Hematocrit 37.0 % (42-52) Mean Corpuscular Volume 90.2 fL (80-100) Mean Corpuscular Hemoglobin 31.2 pg (25-34) Mean Corpuscular Hemoglobin Concent 34.6 g/dl (32-36) Platelet Count 177 K/uL (130-400) Mean Platelet Volume 9.8 fL (7.4-10.4) Neutrophils (%) (Auto) 78.2 % Lymphocytes (%) (Auto) 9.6 % Monocytes (%) (Auto) 11.5 % Eosinophils (%) (Auto) 0.3 % Basophils (%) (Auto) 0.1 % Neutrophils # (Auto) 8.44 K/uL (1.4-6.5) Lymphocytes # (Auto) 1.04 K/uL (1.2-3.4) Monocytes # (Auto) 1.24 K/uL (0.11-0.59) Eosinophils # (Auto) 0.03 K/uL (0-0.5) Basophils # (Auto) 0.01 K/uL (0-0.2) Immature Granulocyte # (Auto) 0.03 K/uL (0.00-0.02) Activated Partial Thromboplast Time 42.5 SECONDS (21.0-31.0) Partial Thromboplastin Ratio 1.6 Magnesium Level 2.0 mg/dl (1.8-2.4) Total Bilirubin 1.6 mg/dl (0.2-1) Direct Bilirubin 0.6 mg/dl (0-0.2) Aspartate Amino Transf (AST/SGOT) 33 U/L (15-37) Alanine Aminotransferase (ALT/SGPT) 17 U/L (12-78) Alkaline Phosphatase 59 U/L (45-117) Total Creatine Kinase 167 U/L (39-308) Creatine Kinase MB 1.9 ng/ml (0.5-3.6) Creatine Kinase MB Ratio 1.1 (0-3.0) Total Protein 8.0 gm/dl (6.4-8.2) Albumin 3.3 gm/dl (3.4-5.0) Lipase 152 U/L (73-393) Digoxin Level 0.6 ng/ml (0.8-2.0) Bedside Lactic Acid Venous 1.75 mmol/L (0.90-1.70) Bedside Troponin I 0.000 ng/ml (0-0.045) SD-Pmu-X-Type Natriuretic Peptide 2015 pg/ml (0-900) Influenza Type A Antigen Neg for Influ A (NEG) Influenza Type B Antigen Neg for Influ B (NEG) Laboratory studies as stated above per my review. Medications Administered Medications (Trade) Dose Ordered Sig/Baldo Route Start Time Stop Time Status Last Admin Dose Admin Sodium Chloride 250 ml @ 999 mls/hr Q16M STAT IV 06/20/16 13:53 06/20/16 14:08 DC 06/20/16 14:18 999 MLS/HR Sodium Chloride 1,000 ml @ 100 mls/hr Q10H STAT IV 06/20/16 13:53 06/20/16 20:12 DC 06/20/16 14:19 100 MLS/HR Clindamycin Phosphate 900 mg/ Dextrose 106 ml @ 100 mls/hr ONE ONCE IV 06/20/16 18:00 06/20/16 19:03 DC 06/20/16 19:53 100 MLS/HR Aztreonam/Dextrose (Azactam IV/D5 100ml) 110 ml @ 100 mls/hr ONE STAT IV 06/20/16 17:59 06/20/16 19:04 DC 06/20/16 18:37 100 MLS/HR ECG Indication: weakness Rate (beats per minute): 97 Rhythm: atrial fibrillation Findings: nonspecific-ST abn Comparison ECG Date: no prior available ED Course 1342: Past medical records reviewed. The patient was evaluated in room B02, and a complete history and physical examination were performed. 1353: Sodium Chloride 1000 ml @ 100 mls/hr IV, Sodium Chloride 250 ml @ 999 mls/ hr IV 1709: I reevaluated the patient who is continues to complain of his symptoms. 1749: I discussed the patient's case with LARISSA Smipson with [facility] [facility]. Upon reevaluation, the patient is resting comfortably. I discussed the results and treatment plan with the patient. He verbalized agreement of the treatment plan. The patient will be evaluated for further management. Medical Decision Differential diagnosis includes but is not limited to infection, influenza, sepsis, electrolyte or metabolic abnormalities, intraabdominal process. This patient comes in as described above. He was placed in room B2. He has multiple different complaints she just feels generally weak. He's had a cough and has flulike symptoms. He also has some rectal issues and urinary retention. An extensive workup was done. Unfortunately, we no old records here to go from. He was found to be in A. fib which I think is likely chronic as he is on digoxin and Coumadin. His white count is not elevated. He has no significant electrolyte or metabolic abnormalities. Chest x-ray does not show any pneumonia. I did a CAT scan of his abdomen and he does have a small cellulitis in the rectal area possibly abscess or fistula. On my exam he is draining there. He also was found on bladder scan did have urinary retention of thousand liters almost and a Jacob catheter was placed and urine studies and culture was sent. He feels weak and does not feel he can go home given the fact that he may have an infection in the perirectal area did start him on IV clindamycin and IV aztreonam. These were chosen to give good broad-spectrum coverage given his allergies to cephalosporins and penicillin. I did discuss these choices with our ED pharmacist. I do think he needs to be admitted. I have consulted the [facility] hospitalist. I saw him in the ER and will admit him for these measures. Consults Time Called: 1745 Consulting Physician: LARISSA Simpson with [facility] Returned Call: [phone] I discussed the patient's case with LARISSA Simpson with [facility]. Impression Primary Impression: Weakness Additional Impressions: Perirectal cellulitis Urinary retention Tremor Scribe Attestation The scribe's documentation has been prepared under my direction and personally reviewed by me in its entirety. I confirm that the note above accurately reflects all work, treatment, procedures, and medical decision making performed by me. Departure Information Dispostion Being Evaluated By Hospitalist Referrals Isaac Still M.D. (PCP) Patient Instructions My [facility] Problem Qualifiers
[2016-06-22] MEDS ORDERED: VANCOMYCIN INJ 1,100 MG in SODIUM CHLORIDE 0.9% 250ML 250 ML IV SCH (02:00)
[2016-06-22] MEDS: AZTREONAM IV 1,000 MG in DEXTROSE 5% 100ML 100 ML IV SCH ×2 (03:07→10:33)
[2016-06-22] MEDS: CLINDAMYCIN IV 600 MG in DEXTROSE 5% ADD-VANTAGE 50ML 50 ML IV SCH ×3 (04:23→20:28)
[2016-06-22] MEDS: LEVOTHYROXINE 88 MCG TAB PO SCH (05:30)
[2016-06-22 07:36] LABS: HEMATOCRIT 30.7 % (42-52); MEAN CELL VOLUME 91.6 fL (80-100); MEAN CORPUSCULAR HGB CONC 33.9 g/dl (32-36); MEAN PLATELET VOLUME 10.4 fL (7.4-10.4); PLATELET COUNT 197 K/uL (130-400); RED BLOOD COUNT 3.35 M/uL (4.7-6.1); WHITE BLOOD COUNT 5.46 K/uL (4.8-10.8)
[2016-06-22 07:49] LABS: INR 3.2 (0.9-1.1); PROTHROMBIN TIME (PATIENT) 36.4 SECONDS (9.0-12.0)
[2016-06-22 08:11] LABS: BUN/CREATININE RATIO 17.3 (10-20); CALCIUM 7.6 mg/dl (8.5-10.1); CREATININE 0.63 mg/dl (0.60-1.40); MAGNESIUM 1.8 mg/dl (1.8-2.4); POTASSIUM 3.7 mmol/L (3.5-5.1)
[2016-06-22 08:13] VITALS: BP 110/66; PULSE 74; TEMP 36.5; O2SAT 95
[2016-06-22] MEDS: ATORVASTATIN 10 MG TAB PO SCH (09:00)
[2016-06-22] MEDS: CARVEDILOL 3.125 MG TAB PO SCH ×2 (09:00→20:29)
[2016-06-22] MEDS: BACITRACIN OINT 15 GM TUBE EXT SCH (09:00)
[2016-06-22] MEDS: DOCUSATE SODIUM 100 MG CAP PO SCH ×2 (09:00→20:28)
[2016-06-22] MEDS: POLYETHYLENE (MIRALAX) 17 GM PACK PO SCH (09:01)
[2016-06-22] MEDS: SODIUM CHLORIDE 0.9% 1000ML 1,000 ML IV SCH ×2 (09:05→22:25)
[2016-06-22 09:46] VITALS: O2SAT 95
--- NOTE | 2016-06-22 10:44 | Surgery Progress Note ---
Surgery Progress Note Date of Service Jun 22, 2016. Subjective + feeling well pt is doing better, pt denies rectal pain, less drainage from adelina- rectal area , no redness, Blood Culture +G+ Cocci, Objective Vital Signs: Date Time Temp Pulse Resp B/P Pulse Ox O2 Delivery O2 Flow Rate FiO2 06/22/16 09:47 Room Air 06/22/16 09:46 95 Room Air 06/22/16 08:13 36.5 74 18 110/66 95 Room Air 06/21/16 23:50 Room Air 06/21/16 22:47 36.6 75 17 122/73 92 Room Air 06/21/16 20:40 69 106/70 06/21/16 16:05 Room Air 06/21/16 15:55 70 06/21/16 15:03 36.6 64 20 119/75 97 Room Air 06/21/16 11:10 36.5 75 16 115/67 93 Room Air General Appearance: WD/WN Head: normocephalic Neck: supple Respiratory/Chest: chest non-tender, lungs clear Cardiovascular: regular rate, rhythm, no edema, no gallop, no JVD Abdomen: normal bowel sounds, non tender, non distended, soft Extremities: normal range of motion, non-tender, normal inspection Laboratory Results: Results Past 24 Hours Test 06/22/16 07:15 Range/Units White Blood Count 5.46 4.8-10.8 K/uL Red Blood Count 3.35 4.7-6.1 M/uL Hemoglobin 10.4 14.0-18.0 g/dL Hematocrit 30.7 42-52 % Mean Corpuscular Volume 91.6 80-100 fL Mean Corpuscular Hemoglobin 31.0 25-34 pg Mean Corpuscular Hemoglobin Concent 33.9 32-36 g/dl RDW Standard Deviation 45.1 36.4-46.3 fL RDW Coefficient of Variation 13.5 11.5-14.5 % Platelet Count 197 130-400 K/uL Mean Platelet Volume 10.4 7.4-10.4 fL Prothrombin Time 36.4 9.0-12.0 SECONDS Prothromb Time International Ratio 3.2 0.9-1.1 Sodium Level 133 136-145 mmol/L Potassium Level 3.7 3.5-5.1 mmol/L Chloride Level 101 98-107 mmol/L Carbon Dioxide Level 22 21-32 mmol/L Anion Gap 10.0 3-11 mmol/L Blood Urea Nitrogen 11 7-18 mg/dl Creatinine 0.63 0.60-1.40 mg/dl Est Creatinine Clear Calc Drug Dose 97.7 ml/min Estimated GFR () 113.3 Estimated GFR (Non- 97.8 BUN/Creatinine Ratio 17.3 10-20 Random Glucose 96 70-99 mg/dl Calcium Level 7.6 8.5-10.1 mg/dl Magnesium Level 1.8 1.8-2.4 mg/dl Assessment & Plan F/U perirectal abscess apply bacitricin on rectal area once a day continue antibiotic treatment, I agree wit 5 days clindamycin, will F/U F/U perirectal abscess apply bacitricin on rectal area once a day continue antibiotic treatment will F/U
--- NOTE | 2016-06-22 10:54 | Progress Note ---
Progress Note Date of Service Jun 22, 2016. Progress Note ID Consult Dictated #[id number] A/P: 1. + blood culture 2. Jeanne-rectal abscess -strep species -Agree with surgery, will maintain on clinda -repeat blood cultures -continue local care to wound -Await ID/sensitivities of strep species/gpc in blood culture, if clinda sensitive could be continued on po clinda 300mg po tid x 14 days -thank you
--- NOTE | 2016-06-22 11:08 | INFECT. DISEASE CONSULTATION ---
DATE OF CONSULTATION: 06/22/2016 REQUESTING PHYSICIAN: Dr. Matias. HISTORY OF PRESENT ILLNESS: This is a 75-year-old gentleman who was admitted after he was having issues with urination and bowel movements for 3 days prior to admission. 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 He states this continuously opens up and drains on its own. He did notice a draining on the day of admission, but denied any pain at that time. On my examination today, he states that he does have pain intermittently in that area. He did have a culture obtained of this area and it is growing a Strep species which has not yet been identified. He also had blood cultures obtained in the Emergency Room and 1/2 sets is growing gram positive cocci which has not been identified. He has had multiple urine cultures since admission to the hospital, may have been negative. He did undergo a CAT scan of the abdomen and pelvis upon admission and that showed a 1.5 x 1 cm collection and a questionable perianal fistula. He is being evaluated by surgery as well. There is no plan for surgical intervention. He was also seen by urology about this admission and a Jacob catheter was placed secondary to urinary retention. On my examination today, he is out of bed to chair. He states overall he is feeling better. He denies any fevers or chills. He denies any nausea, vomiting, diarrhea or abdominal pain. He states his appetite is fair, but not changed recently. He denies any chest pain, cough or shortness of breath. All remaining review of systems are reviewed and are negative. PAST MEDICAL HISTORY: Significant for aFib, coronary artery disease, hypertension, and hypothyroidism. PAST SURGICAL HISTORY: Significant for cataract surgery and colon resection. FAMILY HISTORY: Noncontributory. SOCIAL HISTORY: Unremarkable. ALLERGIES: INCLUDE AMOXICILLIN, CEPHALEXIN, AND CLAVULANIC ACID. CURRENT MEDICATIONS: Include vancomycin, Flomax, digoxin, Lipitor, bacitracin ointment, Synthroid, clindamycin, aztreonam, Coreg, Coumadin, MiraLax, Colace, Tylenol, and Zofran. PHYSICAL EXAMINATION: VITAL SIGNS: He is afebrile and has been since admission, pulse 74, respiratory rate 18, and blood pressure 110/66. Oxygen saturation is 95% on room air. GENERAL: He is awake, alert and oriented x3. He is out of bed to chair on my exam. HEENT: Mucous membranes are moist. HEART: Regular. LUNGS: Clear bilaterally. ABDOMEN: Soft, nontender, nondistended. EXTREMITIES: There is trace lower extremity edema bilaterally. LABORATORY STUDIES: CBC today reveals a white blood cell count of 5.6, hemoglobin is 10.4, and platelets are 197. Chemistry panel today reveals a sodium of 133, potassium 3.7, BUN is 11, creatinine 0.6, glucose is 96. LFTs were normal on admission. A urinalysis had 10-30 wbc's, but no bacteria. Flu swab was negative in the ER. Urine cultures negative x2 on the first. Blood culture on the 04/23 sets is growing gram positive cocci. This has returned positive yesterday. Perianal culture is growing Strep species. ASSESSMENT AND PLAN: 1. Positive blood culture. 2. Perirectal abscess. At this time, he will be narrowed to clindamycin. This can be maintained IV for now pending all the final identification. Blood cultures will be repeated as well to document sterility. He has not had leukocytosis or fever since admission. There is no plan for surgical drainage. Thank you for this consultation.
[2016-06-22 12:39] VITALS: BP 124/68; PULSE 74; TEMP 36.5; O2SAT 99
[2016-06-22] MEDS: LACTOBACILLUS ACIDOPHILUS (FLORANEX) TAB PO SCH ×2 (12:40→18:26)
[2016-06-22] MEDS: VANCOMYCIN INJ 1,100 MG in SODIUM CHLORIDE 0.9% 250ML 250 ML IV SCH ×2 (12:53→22:25)
[2016-06-22] MEDS ORDERED: VANCOMYCIN CONSULT ACTIVE PRN (13:00)
[2016-06-22 15:28] VITALS: BP 130/76; PULSE 75; TEMP 36.6; O2SAT 94
[2016-06-22] MEDS: DIGOXIN 0.125 MG TAB PO SCH (16:18)
[2016-06-22] MEDS: WARFARIN SOD 4 MG TAB PO SCH (16:19)
--- NOTE | 2016-06-22 17:33 | Progress Note ---
Internal Med Progress Note Date of Service: Jun 22, 2016. Provider Documentation: SUBJECTIVE: Patient is seen and examined at bedside. States having intermittent cough which is improving. Denies any chest pain, SOB, rectal pain. Offers no other complaints. OBJECTIVE: Vital Signs-as noted below Physical Exam: General Appearance:Moderately built and nourished, no apparent distress Head: normocephalic, Atraumatic Eyes: normal inspection, EOMI, PERRLA Neck: supple, Trachea midline Respiratory/Chest: Normal breath sounds, CTA, No accessory muscle use Cardiovascular: S1, S2, No murmur Abdomen/GI:Soft, Non tender, Bowel sounds present :urinary catheter in place, Extremities/Musculoskelatal:Chronic venous stasis changes Neurologic/Psych:AAOX3, grossly no focal neurological deficits Skin: normal color, warm Lab data as noted below. ASSESSMENT & PLAN: PERIRECTAL ABSCESS Positive Blood culture appreciate surgery input no need for I&D as it is draining on its own started on Azactam and Clindamycin >>> Continue IV vancomycin, clindamycin Blood cultures: Staph Wound culture:Alpha strep, Enterococcus Appreciate ID input May need repeat blood culture Continue wound care URINARY RETENTION Appreciate urology input Continue Flomax UA and urine culture negative voiding trial as per urology ? URI most likely viral in origin cough improving no abx for now CXR: no acute findings ATRIAL FIBRILLATION rate controlled Continue dig and metoprolol Continue Coumadin: decrease to 2mg daily for now Monitor INR:3.2 CAD Stable continue beta sunny and statin Follows with Dr. Vasquez HTN Stable Continue carvedilol holding spironolactone while giving IVF HYPOTHYROIDISM continue levothyroxine DVT PROPHYLAXIS on Coumadin CODE STATUS DNR Disposition: [facility] when medically stable Await for cultures Vital Signs: Date Time Temp Pulse Resp B/P Pulse Ox O2 Delivery O2 Flow Rate FiO2 06/22/16 16:18 72 06/22/16 15:28 36.6 75 18 130/76 94 Room Air 06/22/16 12:39 36.5 74 18 124/68 99 Room Air 06/22/16 09:47 Room Air 06/22/16 09:46 95 Room Air 06/22/16 08:13 36.5 74 18 110/66 95 Room Air 06/21/16 23:50 Room Air 06/21/16 22:47 36.6 75 17 122/73 92 Room Air 06/21/16 20:40 69 106/70 Lab Results: Results Past 24 Hours Test 06/22/16 07:15 Range/Units White Blood Count 5.46 4.8-10.8 K/uL Red Blood Count 3.35 4.7-6.1 M/uL Hemoglobin 10.4 14.0-18.0 g/dL Hematocrit 30.7 42-52 % Mean Corpuscular Volume 91.6 80-100 fL Mean Corpuscular Hemoglobin 31.0 25-34 pg Mean Corpuscular Hemoglobin Concent 33.9 32-36 g/dl RDW Standard Deviation 45.1 36.4-46.3 fL RDW Coefficient of Variation 13.5 11.5-14.5 % Platelet Count 197 130-400 K/uL Mean Platelet Volume 10.4 7.4-10.4 fL Prothrombin Time 36.4 9.0-12.0 SECONDS Prothromb Time International Ratio 3.2 0.9-1.1 Sodium Level 133 136-145 mmol/L Potassium Level 3.7 3.5-5.1 mmol/L Chloride Level 101 98-107 mmol/L Carbon Dioxide Level 22 21-32 mmol/L Anion Gap 10.0 3-11 mmol/L Blood Urea Nitrogen 11 7-18 mg/dl Creatinine 0.63 0.60-1.40 mg/dl Est Creatinine Clear Calc Drug Dose 97.7 ml/min Estimated GFR () 113.3 Estimated GFR (Non- 97.8 BUN/Creatinine Ratio 17.3 10-20 Random Glucose 96 70-99 mg/dl Calcium Level 7.6 8.5-10.1 mg/dl Magnesium Level 1.8 1.8-2.4 mg/dl
[2016-06-22] MEDS: TAMSULOSIN HCL 0.4 MG CAP PO SCH (20:29)
[2016-06-22] MEDS ORDERED: VANCOMYCIN INJ 1,000 MG in SODIUM CHLORIDE 0.9% 250ML 250 ML IV SCH (21:00)
[2016-06-22 23:00] VITALS: BP 112/69; PULSE 80; TEMP 36.8; O2SAT 94
[2016-06-23] MEDS: CLINDAMYCIN IV 600 MG in DEXTROSE 5% ADD-VANTAGE 50ML 50 ML IV SCH ×2 (04:13→11:49)
--- NOTE | 2016-06-23 05:47 | Surgery Progress Note ---
Surgery Progress Note Date of Service Jun 23, 2016. Subjective + feeling well no perirectal pain Objective Vital Signs: Date Time Temp Pulse Resp B/P Pulse Ox O2 Delivery O2 Flow Rate FiO2 06/22/16 23:29 Room Air 06/22/16 23:00 36.8 80 16 112/69 94 Room Air 06/22/16 16:18 72 06/22/16 16:00 Room Air 06/22/16 15:28 36.6 75 18 130/76 94 Room Air 06/22/16 12:39 36.5 74 18 124/68 99 Room Air 06/22/16 09:47 Room Air 06/22/16 09:46 95 Room Air 06/22/16 08:13 36.5 74 18 110/66 95 Room Air General Appearance: no apparent distress Respiratory/Chest: no respiratory distress Laboratory Results: Results Past 24 Hours Test 06/22/16 07:15 06/23/16 04:44 Range/Units White Blood Count 5.46 4.8-10.8 K/uL Red Blood Count 3.35 4.7-6.1 M/uL Hemoglobin 10.4 14.0-18.0 g/dL Hematocrit 30.7 42-52 % Mean Corpuscular Volume 91.6 80-100 fL Mean Corpuscular Hemoglobin 31.0 25-34 pg Mean Corpuscular Hemoglobin Concent 33.9 32-36 g/dl RDW Standard Deviation 45.1 36.4-46.3 fL RDW Coefficient of Variation 13.5 11.5-14.5 % Platelet Count 197 130-400 K/uL Mean Platelet Volume 10.4 7.4-10.4 fL Prothrombin Time 36.4 9.0-12.0 SECONDS Prothromb Time International Ratio 3.2 0.9-1.1 Sodium Level 133 136-145 mmol/L Potassium Level 3.7 3.5-5.1 mmol/L Chloride Level 101 98-107 mmol/L Carbon Dioxide Level 22 21-32 mmol/L Anion Gap 10.0 3-11 mmol/L Blood Urea Nitrogen 11 7-18 mg/dl Creatinine 0.63 0.60-1.40 mg/dl Est Creatinine Clear Calc Drug Dose 97.7 ml/min Estimated GFR () 113.3 Estimated GFR (Non- 97.8 BUN/Creatinine Ratio 17.3 10-20 Random Glucose 96 70-99 mg/dl Calcium Level 7.6 8.5-10.1 mg/dl Magnesium Level 1.8 1.8-2.4 mg/dl Jeanne anal area shows no significant induration or swelling Assessment & Plan 06/23/16- seems to be improving- does not seem to require surgery now.
[2016-06-23] MEDS: LEVOTHYROXINE 88 MCG TAB PO SCH (05:48)
[2016-06-23 07:17] VITALS: BP 116/78; PULSE 66; TEMP 36.7; O2SAT 95
[2016-06-23 07:20] VITALS: O2SAT 95
[2016-06-23 07:24] LABS: PROTHROMBIN TIME (PATIENT) 40.6 SECONDS (9.0-12.0)
[2016-06-23 07:26] LABS: INR 3.6 (0.9-1.1)
[2016-06-23] MEDS ORDERED: VANCOMYCIN TROUGH ONE (07:30)
[2016-06-23 07:43] LABS: BUN/CREATININE RATIO 15.2 (10-20); CALCIUM 7.8 mg/dl (8.5-10.1); CREATININE 0.67 mg/dl (0.60-1.40); POTASSIUM 3.6 mmol/L (3.5-5.1)
[2016-06-23] MEDS: LACTOBACILLUS ACIDOPHILUS (FLORANEX) TAB PO SCH ×2 (08:43→11:49)
[2016-06-23] MEDS: BACITRACIN OINT 15 GM TUBE EXT SCH (08:43)
[2016-06-23] MEDS: VANCOMYCIN INJ 1,100 MG in SODIUM CHLORIDE 0.9% 250ML 250 ML IV SCH (08:44)
[2016-06-23] MEDS: DOCUSATE SODIUM 100 MG CAP PO SCH (08:44)
[2016-06-23] MEDS: ATORVASTATIN 10 MG TAB PO SCH (08:45)
[2016-06-23] MEDS: POLYETHYLENE (MIRALAX) 17 GM PACK PO SCH (08:45)
[2016-06-23] MEDS: CARVEDILOL 3.125 MG TAB PO SCH (08:46)
[2016-06-23 08:53] VITALS: BP 174/73; PULSE 63
[2016-06-23] MEDS: SODIUM CHLORIDE 0.9% 1000ML 1,000 ML IV SCH (10:52)
[2016-06-23 11:52] VITALS: BP 144/78; PULSE 71
[2016-06-23 15:12] VITALS: BP 130/70; PULSE 84; TEMP 36.4; O2SAT 95
--- NOTE | 2016-06-23 15:32 | Progress Note ---
Internal Med Progress Note Date of Service: Jun 23, 2016. Provider Documentation: SUBJECTIVE: Patient is seen and examined at bedside. States feeling well today. Offers no complaints. Denies any chest pain, SOB, rectal pain. OBJECTIVE: Vital Signs-as noted below Physical Exam: General Appearance:Moderately built and nourished, no apparent distress Head: normocephalic, Atraumatic Eyes: normal inspection, EOMI, PERRLA Neck: supple, Trachea midline Respiratory/Chest: Normal breath sounds, CTA, No accessory muscle use Cardiovascular: S1, S2, No murmur Abdomen/GI:Soft, Non tender, Bowel sounds present :urinary catheter in place, Extremities/Musculoskelatal:Chronic venous stasis changes Neurologic/Psych:AAOX3, grossly no focal neurological deficits Skin: normal color, warm Lab data as noted below. ASSESSMENT & PLAN: PERIRECTAL ABSCESS Positive Blood culture appreciate surgery input no need for I&D as it is draining on its own started on Azactam and Clindamycin >>> Continue IV vancomycin, clindamycin >>>> Clindamycin 300mg po tid x 14 days Blood cultures: 1/2 bottles Staph: Coagulase Negative : Likely contamination per discussion with Wound culture:Alpha strep, Enterococcus fecalis, Staph.aureus Appreciate ID input Continue wound care URINARY RETENTION Resolved Appreciate urology input Continue Flomax UA and urine culture negative ? URI most likely viral in origin cough improved no abx for now CXR: no acute findings ATRIAL FIBRILLATION rate controlled Continue dig and metoprolol Hold Coumadin for now Monitor INR:3.6 Needs monitor of INR at [facility] and Coumadin dosage accordingly CAD Stable continue beta sunny and statin Follows with Dr. Vasquez HTN Stable Continue carvedilol holding spironolactone while giving IVF HYPOTHYROIDISM continue levothyroxine DVT PROPHYLAXIS on Coumadin CODE STATUS DNR Disposition: Plan to discharge to [facility] today: Discussed with regarding holding coumadin and monitoring his INR Follow up with in 1 week after being discharged from [facility] Vital Signs: Date Time Temp Pulse Resp B/P Pulse Ox O2 Delivery O2 Flow Rate FiO2 06/23/16 15:12 36.4 84 18 130/70 95 Room Air 06/23/16 11:52 71 144/78 06/23/16 08:53 63 174/73 06/23/16 07:20 95 Room Air 06/23/16 07:17 36.7 66 16 116/78 95 Room Air 06/22/16 23:29 Room Air 06/22/16 23:00 36.8 80 16 112/69 94 Room Air 06/22/16 16:18 72 06/22/16 16:00 Room Air 06/22/16 15:28 36.6 75 18 130/76 94 Room Air Lab Results: Results Past 24 Hours Test 06/23/16 06:50 Range/Units Prothrombin Time 40.6 9.0-12.0 SECONDS Prothromb Time International Ratio 3.6 0.9-1.1 Sodium Level 140 136-145 mmol/L Potassium Level 3.6 3.5-5.1 mmol/L Chloride Level 106 98-107 mmol/L Carbon Dioxide Level 25 21-32 mmol/L Anion Gap 9.0 3-11 mmol/L Blood Urea Nitrogen 10 7-18 mg/dl Creatinine 0.67 0.60-1.40 mg/dl Est Creatinine Clear Calc Drug Dose 91.8 ml/min Estimated GFR () 110.5 Estimated GFR (Non- 95.3 BUN/Creatinine Ratio 15.2 10-20 Random Glucose 86 70-99 mg/dl Calcium Level 7.8 8.5-10.1 mg/dl
[2016-06-23] MEDS ORDERED: CLC100 PO (15:40)
[2016-06-23] MEDS ORDERED: FLM4 PO (15:40)
[2016-06-23] MEDS ORDERED: BCTO EXT (15:40)
[2016-06-23] MEDS ORDERED: LCTX PO (15:40)
[2016-06-23] MEDS ORDERED: CLC150 PO (15:40)
[2016-06-23] MEDS: DIGOXIN 0.125 MG TAB PO SCH (15:47)
--- NOTE | 2016-06-23 15:47 | Discharge Summary ---
Discharge Summary Date of Service Jun 23, 2016. Discharge Summary Admission Date: Jun 20, 2016 at 18:39 Discharge Date: Jun 23, 2016 Discharge Disposition: group home facility Principal Diagnosis: PERIRECTAL ABSCESS Procedures: CT abd; 1. Small 1.5 x 1 cm subcutaneous fluid and gas containing collection within the medial fold of the right buttock which reflects a tiny buttock/perianal abscess. Moderate adjacent infiltration suggests cellulitis. Possible tiny associated right perianal fistula. Mild rectal wall thickening. 2. No bowel obstruction. 3. Moderate distention of the bladder. CXR: Mild cardiomegaly. No acute findings. Consultations: Surgery, ID Pending Studies/Follow-Up: Follow up with at [facility] Follow up with in 1 week after being discharged from [facility] your current INR is 3.6 HOLD COUMADIN FOR NOW INR TILL YOUR INR IS IN TARGET RANGE BETWEEN 2-3 GET INR CHECKED AT [facility] AND GET Coumadin dosage based on your INR Medication Reconciliation New Medications: Clindamycin HCl (Clindamycin HCl) 150 Mg Cap 300 MG PO TID for 14 Days, #84 Bacitracin (Bacitracin Zinc) 45 Appln/15 Gm Oint 1 APPLN EXT DAILY for 15 Days, #1 To perirectal abscess area Docusate Sodium (Docusate Sodium) 100 Mg Cap 100 MG PO BID PRN for CONSTIPATION for 30 Days, #60 CAP Lactobacillus Acidophilus (Floranex) 1 Tab Tab 4 TAB PO TIDM for 30 Days, #30 TAB Tamsulosin HCl (Tamsulosin HCl) 0.4 Mg Cap 0.4 MG PO HS for 30 Days, #30 CAP Continued Medications: Atorvastatin (Lipitor) 10 Mg Tab 10 MG PO DAILY, TAB Carvedilol (Coreg) 3.125 Mg Tab 3.125 MG PO BID, TAB Digoxin (Digoxin) 0.125 Mg Tab 0.125 MG PO DAILY Levothyroxine Sodium (Synthroid) 88 Mcg Tab 88 MCG PO DAILY, TAB Potassium Chloride (Klor-Con Ext Rel) 8 Meq Tabcr 8 MEQ PO BID, CAP Spironolactone (Spironolactone) 25 Mg Tab 25 MG PO BID Warfarin Sod (Jantoven) 2 Mg Tab 2 MG PO Q2D, TAB STARTS ON SATURDAY WITH 4MG THEN ALTERNATES DOSES Warfarin Sod (Jantoven) 4 Mg Tab 4 MG PO Q2D, TAB STARTS ON WITH 4MG THEN ALTERNATES DOSES Admission Information HPI (per Admitting provider): 75 year old male who presents to the ER with reports of difficulty urinating and moving his bowels. Patient reports he has not urinated or moved his bowels in 3 days. Patient has a wound on the right medical buttocks which he reports has been there for over 30 years. He reports it opens up and drains on its own from time to time. He reports it opened and started to drain today. It is not painful. Patient reports a chronic cough for the past several months which has worsened over the past few days. He reports it is occasionally productive for clear sputum. He reports worsening shortness of breath on exertion. He denies chest pain. He reports mild lightheadedness but denies dizziness or syncopal events. He reports intermittent abdominal pain. No nausea or vomiting. He denies fever and chills. Patient has chronic edema to his BLLE (R>L) and redness /venous changes which he reports is unchanged. In the ER, patient was bladder scanned for 800cc. CT abd/pelvis was done that showed a small perirectal abscess. Labs are unremarkable. CXR is clear. Vitals are stable. Physical Exam (per Admitting): General Appearance: no apparent distress Head: normocephalic Eyes: normal inspection ENT: hearing grossly normal Neck: supple, no JVD Respiratory/Chest: lungs clear, no respiratory distress, + decreased breath sounds Cardiovascular: + irregularly irregular (rate controlled), + pertinent finding (+1-2 edema BLLE) Abdomen/GI: normal bowel sounds, non tender, soft Genitourinary - Male: normal male genitalia Extremities/Musculoskelatal: normal inspection, no calf tenderness Neurologic/Psych: no motor/sensory deficits, alert, normal mood/affect, oriented x 3 Skin: + pertinent finding (ulcer noted to right medial buttock ~ rosa size with surrounding edema and erythema, bloody drainage noted on brief; BLLE with chronic venous changes and reddness) Hospital Course PERIRECTAL ABSCESS Positive Blood culture appreciate surgery input no need for I&D as it is draining on its own started on Azactam and Clindamycin >>> Continue IV vancomycin, clindamycin >>>> Clindamycin 300mg po tid x 14 days Blood cultures: 1/2 bottles Staph: Coagulase Negative : Likely contamination per discussion with Wound culture:Alpha strep, Enterococcus fecalis, Staph.aureus Appreciate ID input Continue wound care URINARY RETENTION Resolved Appreciate urology input Continue Flomax UA and urine culture negative ? URI most likely viral in origin cough improved no abx for now CXR: no acute findings ATRIAL FIBRILLATION rate controlled Continue dig and metoprolol Hold Coumadin for now Monitor INR:3.6 Needs monitor of INR at [facility] and Coumadin dosage accordingly CAD Stable continue beta sunny and statin Follows with Dr. Vasquez HTN Stable Continue carvedilol holding spironolactone while giving IVF HYPOTHYROIDISM continue levothyroxine DVT PROPHYLAXIS on Coumadin CODE STATUS DNR Disposition: Plan to discharge to [facility] today: Discussed with regarding holding coumadin and monitoring his INR Follow up with in 1 week after being discharged from [facility] Total time spent on discharge = 35 minutes This includes examination of the patient, discharge planning, medication reconciliation, and communication with other providers. Discharge Instructions Discharge Instructions Admission Reason for Admission: Perirectal Abscess Discharge Discharge Diagnosis / Problem: Perirectal Abscess, Urinary Retention Discharge Goals Goal(s): Decrease discomfort, Improve function Activity Recommendations Activity Limitations: resume your previous activity Exercise/Sports Limitations: as tolerated . Instructions / Follow-Up Instructions / Follow-Up Follow up with at [facility] Follow up with in 1 week after being discharged from [facility] your current INR is 3.6 HOLD COUMADIN FOR NOW INR TILL YOUR INR IS IN TARGET RANGE BETWEEN 2-3 GET INR CHECKED AT [facility] AND GET Coumadin dosage based on your INR Current Hospital Diet Patient's current hospital diet: AHA Diet (Heart Healthy) Discharge Diet Recommended Diet: AHA Diet (Heart Healthy) Pending Studies Studies pending at discharge: no Medical Emergencies . Who to Call and When: Medical Emergencies: If at any time you feel your situation is an emergency, please call 911 immediately. . Non-Emergent Contact Non-Emergency issues call your: Primary Care Provider Call Non-Emergent contact if: you have a fever, your pain is not controlled, your pain is worsening, your pain is unusual for you, you have any medication questions . . "Provider Documentation" section prepared by Héctor Matias. VTE Core Measure Inpt VTE Proph given/why not?: SCD's
[2016-06-23] MEDS ORDERED: WARFARIN SOD 2 MG TAB PO SCH (16:00)
[2016-06-23 16:11] VITALS: BP 130/70; PULSE 80; TEMP 36.4; O2SAT 95
[2016-09-16] MEDS ORDERED: SPR25 PO (14:47)
[2016-09-16] MEDS ORDERED: ATOR10TA88 PO (14:47)
[2016-09-16] MEDS ORDERED: POTA8CAP6 PO (17:44)
[2016-10-12] MEDS ORDERED: VNCS125 PO (18:15)
[2016-10-12] MEDS ORDERED: MTR500 PO (18:15)
[2016-10-12] MEDS ORDERED: AZTR1INJ5 IV (18:15)
== END 2016-06-23 17:30 | DRG 395 ==
LOC: ENRESERVDT → ENRESERVTM → C.EDB 11:52 → C.MSN 18:39 → EDBEDREQ 18:52
PROVIDERS: ADMIT Family Medicine; ATTEND Internal Medicine
DX: K61.1 Rectal abscess (principal); I48.2 Chronic atrial fibrillation; I25.10 Atherosclerotic heart disease of native coronary artery without angina pectoris; I10 Essential (primary) hypertension; E03.9 Hypothyroidism, unspecified; J06.9 Acute upper respiratory infection, unspecified; K59.00 Constipation, unspecified; R33.9 Retention of urine, unspecified; B95.2 Enterococcus as the cause of diseases classified elsewhere; B33.8 Other specified viral diseases; R05 Cough; R25.1 Tremor, unspecified; B95.61 Methicillin susceptible Staphylococcus aureus infection as the cause of diseases classified elsewhere; B95.4 Other streptococcus as the cause of diseases classified elsewhere; Z79.899 Other long term (current) drug therapy; Z66 Do not resuscitate; Z79.01 Long term (current) use of anticoagulants

== ENCOUNTER 2016-08-17 10:52 | Inpatient (IN) | payer OTHER ==
[~2016-08-17] VITALS: Ht 170.2 cm; Wt 77.0 kg
[~2016-08-17 10:52] MED LIST: BCTO EXT; CARV3.12 PO; CLC100 PO; CLC150 PO; FLM4 PO; LCTX PO; LEVO88TA PO; LNX125 PO; POTA8CAP6 PO; WARF2TAB8 PO; WARF4TAB8 PO
[2016-08-17] MEDS ORDERED: SODIUM CHLORIDE 0.9% 1000ML 1,000 ML IV STA (12:13)
[2016-08-17] MEDS ORDERED: SODIUM CHLORIDE 0.9% 250ML 250 ML IV STA (12:13)
--- NOTE | 2016-08-17 12:40 | EMERGENCY ROOM VISIT NOTE ---
History Report prepared by Esther: Coretta Arndt Under the Supervision of: Dr. Meghan Holland M.D. First contact with patient: 11:46 Chief Complaint: OTHER COMPLAINT Stated Complaint: BLOOD AND PUSS IN STOOL History of Present Illness The patient is a 75 year old male who presents to the Emergency Room with complaints of persistent blood in stool starting this morning. He has been passing pus when he tries to have a bowel movement. He reports some diffuse abdominal pain. He currently rates a pain intensity of 5/10. He denies fevers, chills, nausea, vomiting, diarrhea, or any other complaints. The patient was recently placed on antibiotics for a cyst near his rectum. Source of History: patient Onset: this morning Position: other (global) Symptom Intensity: 5/10 Quality: other (blood in stool) Timing: other (persistent) Associated Symptoms: + abdominal pain, No chills, No diarrhea, No fevers, No nausea, No vomiting Review of Systems See HPI for pertinent positives & negatives. A total of 10 systems reviewed and were otherwise negative. Past Medical & Surgical Medical Problems: (1) Atrial fibrillation (2) CAD (coronary artery disease) (3) HTN (hypertension) (4) Hypothyroidism Surgical Problems: (1) History of cataract surgery (2) History of colon resection Family History Cancer Diabetes mellitus Gallbladder disease Heart disease Kidney disease Kidney stones Lung disease Social History Smoking Status: Never Smoker Drug Use: none Marital Status: Occupation Status: retired Current/Historical Medications Scheduled Atorvastatin (Lipitor), 10 MG PO DAILY Carvedilol (Coreg), 3.125 MG PO BID Ciprofloxacin (Ciprofloxacin HCl), 500 MG PO BID Digoxin (Digoxin), 0.125 MG PO QPM Levothyroxine Sodium (Levothyroxine Sodium), 1 TAB PO DAILY Metronidazole (Flagyl), 500 MG PO TID Potassium Chloride (Klor-Con Ext Rel), 8 MEQ PO BID Spironolactone (Spironolactone), 25 MG PO BID Warfarin Sod (Jantoven), 2 MG PO Q2D Warfarin Sod (Jantoven), 4 MG PO Q2D Scheduled PRN Docusate Sodium (Docusate Sodium), 100 MG PO BID PRN for CONSTIPATION Allergies Coded Allergies: Amoxicillin (Verified Allergy, Unknown, ., 06/20/16) Cephalexin (Verified Allergy, Unknown, ., 06/20/16) Clavulanic Acid (Verified Allergy, Unknown, ., 06/20/16) Penicillins (Verified Allergy, Unknown, ., 06/20/16) Physical Exam Vital Signs Date Time Temp Pulse Resp B/P Pulse Ox O2 Delivery O2 Flow Rate FiO2 08/17/16 17:58 63 08/17/16 17:43 72 17 141/76 94 08/17/16 15:47 65 18 144/80 95 08/17/16 14:56 62 08/17/16 13:52 72 17 154/73 97 08/17/16 12:41 62 08/17/16 12:22 62 16 153/74 96 Room Air 08/17/16 10:59 36.3 78 18 147/89 97 Room Air Physical Exam Vital signs reviewed. General: Well-appearing, elderly, tobacco dried to his mouth, in no significant distress. HEENT: No scleral icterus, PERRLA, neck supple. Atraumatic. Cardiovascular: Regular rate and rhythm, no extra sounds. Pulmonary: Clear to auscultation bilaterally, normal work of breathing. Abdomen: Soft, no specific abdominal tenderness, nondistended, positive bowel sounds. Rectal Exam: Guaiac negative, normal rectal mucosa. Musculoskeletal: Atraumatic, pitting edema bilateral lower extremities. Neurologic: Patient awake alert and oriented x 3, full strength in all 4 extremities. Cranial nerves 2 through 12 grossly intact. Skin: Warm, dry, no rash. Some surrounding erythema to the sacral region without evidence of breakdown. Medical Decision & Procedures ER Provider Diagnostic Interpretation: CT results as stated below per my review and radiologist interpretation: ABDOMEN AND PELVIS CT WITH IV CONTRAST CT DOSE: 602.55 mGy.cm HISTORY: Rectal pain. proctitis TECHNIQUE: Multiaxial CT images of the abdomen and pelvis were performed following the use of intravenous contrast. COMPARISON STUDY: Abdomen and pelvis CT 06/20/2016. FINDINGS: Moderate thickening of the rectum with mild perirectal fat stranding. There is a 3.7 x 1.3 cm right and posterior perirectal abscess. 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 This has increased in size. No evidence for bowel obstruction. The lung bases are essentially clear. Severe osteoarthritis within the left hip, unchanged. No suspicious lytic or blastic osseous lesions. The liver, gallbladder, pancreas, and adrenal glands are unremarkable. Trace fluid adjacent to the spleen, unchanged. No hydronephrosis. Scarring within the upper pole of the kidneys. IMPRESSION: 1. Interval development of a 3.7 x 1.3 cm right and posterior perirectal abscess. 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 2. Moderate thickening of the rectum consistent with a proctitis. Electronically signed by: Rudy Cheatham M.D. 08/17/2016 3:05 PM Dictated Date/Time: 08/17/2016 2:54 PM Laboratory Results Test 08/17/16 12:24 08/17/16 14:00 Activated Partial Thromboplast Time 43.6 SECONDS (21.0-31.0) Partial Thromboplastin Ratio 1.7 Total Bilirubin 0.6 mg/dl (0.2-1) Direct Bilirubin 0.1 mg/dl (0-0.2) Aspartate Amino Transf (AST/SGOT) 19 U/L (15-37) Alanine Aminotransferase (ALT/SGPT) 17 U/L (12-78) Alkaline Phosphatase 82 U/L (45-117) Total Protein 7.8 gm/dl (6.4-8.2) Albumin 3.7 gm/dl (3.4-5.0) Urine Color YELLOW Urine Appearance CLEAR (CLEAR) Urine pH 6.0 (4.5-7.5) Urine Specific Gore 1.008 (1.000-1.030) Urine Protein NEG (NEG) Urine Glucose (UA) NEG (NEG) Urine Ketones NEG (NEG) Urine Occult Blood NEG (NEG) Urine Nitrite NEG (NEG) Urine Bilirubin NEG (NEG) Urine Urobilinogen NEG (NEG) Urine Leukocyte Esterase NEG (NEG) Laboratory results per my review. Medications Administered Medications (Trade) Dose Ordered Sig/Baldo Route Start Time Stop Time Status Last Admin Dose Admin Sodium Chloride 250 ml @ 999 mls/hr Q16M STAT IV 08/17/16 12:13 08/17/16 12:28 DC 08/17/16 12:13 999 MLS/HR Sodium Chloride (Nss 1000ml) 1,000 ml @ 125 mls/hr Q8H STAT IV 08/17/16 12:13 08/17/16 19:57 DC 08/17/16 12:13 125 MLS/HR Ciprofloxacin/ Dextrose (Cipro / D5w) 400 mg NOW STAT IV 08/17/16 16:32 08/17/16 16:34 DC 08/17/16 16:32 400 MG Metronidazole (Flagyl / Nss) 500 mg NOW STAT IV 08/17/16 16:32 08/17/16 16:34 DC 08/17/16 16:32 500 MG ECG Indication: abdominal pain, other (blood in stool) Rate (beats per minute): 66 Rhythm: atrial fibrillation Findings: no acute ischemic change, other (QTC 448) ED Course 1146: Past medical records reviewed. The patient was evaluated in room C11B. A complete history and physical examination was performed. 1213: Sodium Chloride 1000 ml @ 125 mls/hr IV, Sodium Chloride 250 ml @ 999 mls/ hr IV 1632: Metronidazole 500 mg IV, Cipro/D5w 400 mg IV 1641: I discussed the patient's case with Dr. Mckeon, general surgeon with [facility]. 1648: Upon reevaluation, the patient is resting comfortably. I discussed laboratory and radiographic results with the patient. He verbalized agreement of the treatment plan. I spoke with Dr. Castillo of the [facility] Hospitalist Service. The patient will be evaluated for further management and care. Medical Decision Differential diagnosis: Etiologies such as gastroenteritis, food borne illness, infections, appendicitis , diverticulitis, inflammatory bowel disease, obstruction, GI bleed, biliary pathology, as well as others were entertained. This patient was evaluated and appeared to be in no significant distress. IV access was obtained and laboratory work was drawn. The patient was placed on the campus monitor. He was hydrated with normal saline solution. Patient is found to be in a rate controlled atrial fibrillation. Laboratory work reveals a normal white blood cell count. Patient's chemistry profile is unrevealing. Urinalysis is negative. Patient is found to have guaiac positive stool. CT scan of the abdomen and pelvis reveals a perirectal abscess with a fistulous tract, proctitis and stool cultures are positive for C. difficile. Patient was placed on Cipro and Flagyl IV. He was informed of the findings. He will be evaluated by the hospitalist service for further management. Dr. Mckeon of general surgery was consulted and will evaluate the patient in house. Consults Time Called: 1634 Consulting Physician: Dr. Mckeon, general surgeon with [facility] Returned Call: 1641 I discussed the patient's case with Dr. Mckeon, general surgeon with [facility]. Additional Consults: Time Called: 1643 Consulted Physician: Dr. Castillo of the [facility] Returned Call: 1647 Additional Comments: I spoke with Dr[facility] Castillo of the [facility]. Impression Primary Impression: Perirectal abscess Additional Impressions: C. difficile colitis Proctitis Scribe Attestation The scribe's documentation has been prepared under my direction and personally reviewed by me in its entirety. I confirm that the note above accurately reflects all work, treatment, procedures, and medical decision making performed by me. Departure Information Dispostion Being Evaluated By Hospitalist Prescriptions Metronidazole (FLAGYL) 500 Mg Tab 500 MG PO TID for 15 Days, #45 TAB Prov: Eileen Diallo MD 08/18/16 Ciprofloxacin (Ciprofloxacin HCl) 500 Mg Tab 500 MG PO BID for 10 Days Prov: Eileen Diallo MD 08/18/16 Referrals Isaac Still MD (PCP) Patient Instructions My [facility] Problem Qualifiers
[2016-08-17 13:15] LABS: BASO % 0.4 %; BASO ABS # 0.03 K/uL (0-0.2); COMPLETE YES; HEMATOCRIT 40.1 % (42-52); IG% 0.1 %; LYMPH % 26.5 %; LYMPH ABS # 1.81 K/uL (1.2-3.4); MEAN CELL VOLUME 96.2 fL (80-100); MEAN CORPUSCULAR HEMOGLOBIN 31.9 pg (25-34); MEAN CORPUSCULAR HGB CONC 33.2 g/dl (32-36); MEAN PLATELET VOLUME 10.3 fL (7.4-10.4); MONO % 9.1 %; NEUT % 59.9 %; PLATELET COUNT 195 K/uL (130-400); RED BLOOD COUNT 4.17 M/uL (4.7-6.1); WHITE BLOOD COUNT 6.83 K/uL (4.8-10.8)
[2016-08-17 13:29] LABS: BUN/CREATININE RATIO 13.7 (10-20); CALCIUM 8.9 mg/dl (8.5-10.1); CREATININE 0.91 mg/dl (0.60-1.40); MAGNESIUM 2.1 mg/dl (1.8-2.4); POTASSIUM 3.9 mmol/L (3.5-5.1)
[2016-08-17] MEDS ORDERED: OPTIRAY 320 IV PRN (14:15)
[2016-08-17 14:19] LABS: URINE APPEARANCE CLEAR (CLEAR); URINE BILIRUBIN NEG (NEG); URINE COLOR YELLOW; URINE NITRITE NEG (NEG); URINE SPECIFIC GRAVITY 1.008 (1.000-1.030); UROBILINOGEN NEG (NEG); ZZUR CULT IF INDIC CLEAN CATCH NO
[2016-08-17 14:21] LABS: MANUAL MICROSCOPIC REQUIRED? NO; REVIEW REQ? NO
--- NOTE | 2016-08-17 15:06 | DIAGNOSTIC IMAGING REPORT ---
ABDOMEN AND PELVIS CT WITH IV CONTRAST CT DOSE: 602.55 mGy.cm HISTORY: Rectal pain. proctitis TECHNIQUE: Multiaxial CT images of the abdomen and pelvis were performed following the use of intravenous contrast. COMPARISON STUDY: Abdomen and pelvis CT 06/20/2016. FINDINGS: Moderate thickening of the rectum with mild perirectal fat stranding. There is a 3.7 x 1.3 cm right and posterior perirectal abscess. 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 This has increased in size. No evidence for bowel obstruction. The lung bases are essentially clear. Severe osteoarthritis within the left hip, unchanged. No suspicious lytic or blastic osseous lesions. The liver, gallbladder, pancreas, and adrenal glands are unremarkable. Trace fluid adjacent to the spleen, unchanged. No hydronephrosis. Scarring within the upper pole of the kidneys. IMPRESSION: 1. Interval development of a 3.7 x 1.3 cm right and posterior perirectal abscess. 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 2. Moderate thickening of the rectum consistent with a proctitis. Electronically signed by: Rudy Cheatham M.D. 08/17/2016 3:05 PM Dictated Date/Time: 08/17/2016 2:54 PM
[2016-08-17] MEDS ORDERED: CIPROFLOXACIN 400MG / 200ML D5W IV STA (16:32)
[2016-08-17] MEDS ORDERED: METRONIDAZOLE 500MG / 100ML NSS IV STA (16:32)
[2016-08-17] MEDS ORDERED: LEVO88TA3 PO (17:44)
[2016-08-17] MEDS ORDERED: ALUMINUM/MAGNESIUM/SIMETH (MAALOX MAX) 30 ML UDC PO PRN (18:00)
[2016-08-17] MEDS ORDERED: ONDANSETRON INJ 2 MG/ML 2 ML VIAL IV PRN (18:00)
[2016-08-17] MEDS ORDERED: POLYETHYLENE (MIRALAX) 17 GM PACK PO PRN (18:00)
[2016-08-17] MEDS ORDERED: MAGNESIUM HYDROXIDE SUSP 30 ML UDC PO PRN (18:00)
[2016-08-17] MEDS ORDERED: ACETAMINOPHEN 325 MG TAB PO PRN (18:00)
[2016-08-17 18:40] LABS: INR 1.9 (0.9-1.1); PARTIAL THROMBOPLASTIN RATIO 1.7; PROTHROMBIN TIME (PATIENT) 21.3 SECONDS (9.0-12.0)
[2016-08-17 20:00] VITALS: BP 116/71; PULSE 59; TEMP 36.9; O2SAT 95; Ht 170.2 cm; Wt 77.0 kg
--- NOTE | 2016-08-17 20:09 | History and Physical ---
History & Physical Date & Time of Service: Aug 17, 2016 at 19:49 Chief Complaint: Blood And Puss In Stool Primary Care Physician: Isaac Still MD History of Present Illness Source: patient, family (son at bedside) This is a 75 y/o male with a history of A. fib on warfarin, hypertension, hyperlipidemia, hypothyroidism who presented to the ED on 08/17 with blood and pus in the stool. The patient was recently admitted in early June 2016 with a perirectal abscess, however this was not I&D'd at this time and was just treated with antibiotics. Patient complains of seeing blood in and pus in his stool since yesterday. He denies any pain with bowel movements, and denies any diarrhea. He states he feels more weak and fatigued than usual. He currently denies any abdominal pain, nausea, vomiting. He does state he has not been eating as much as he normally does. His main complaint right now is that he is very cold and this is a chronic problem. The patient denies fevers, chills, sweats, chest pain, palpitations, claudication, cough, wheezing, shortness of breath, nausea, vomiting, abdominal pain, dysuria, hematuria, urinary retention , paralysis, weakness, numbness and tingling. Past Medical/Surgical History Medical Problems: (1) Atrial fibrillation on warfarin Status: Chronic (2) CAD (coronary artery disease) Permanent Comment[facility], details unknown Status: Chronic (3) HTN (hypertension) Status: Chronic (4) Hypothyroidism Status: Chronic Surgical Problems: (1) History of cataract surgery Status: Chronic (2) History of colon resection Permanent Comment: for diverticulitis Status: Chronic Family History Cancer Diabetes mellitus Gallbladder disease Heart disease Kidney disease Kidney stones Lung disease Social History Smoking Status: Never Smoker Smokeless Tobacco Use: Yes Alcohol Use: none Drug Use: none Marital Status: Housing status: lives with family (son and daughter in law) Occupational Status: retired Allergies Coded Allergies: Amoxicillin (Verified Allergy, Unknown, ., 06/20/16) Cephalexin (Verified Allergy, Unknown, ., 06/20/16) Clavulanic Acid (Verified Allergy, Unknown, ., 06/20/16) Penicillins (Verified Allergy, Unknown, ., 06/20/16) Home Medications Scheduled Atorvastatin (Lipitor), 10 MG PO DAILY Carvedilol (Coreg), 3.125 MG PO BID Digoxin (Digoxin), 0.125 MG PO QPM Levothyroxine Sodium (Levothyroxine Sodium), 1 TAB PO DAILY Potassium Chloride (Klor-Con Ext Rel), 8 MEQ PO BID Spironolactone (Spironolactone), 25 MG PO BID Warfarin Sod (Jantoven), 2 MG PO Q2D Warfarin Sod (Jantoven), 4 MG PO Q2D Scheduled PRN Docusate Sodium (Docusate Sodium), 100 MG PO BID PRN for CONSTIPATION Review of Systems Constitutional: + fatigue, + weakness, No chills, No fever, No sweats Eyes: No diplopia, No eye pain, No worsening of vision ENT: No hearing loss, No sore throat, No trouble swallowing Respiratory: No cough, No dyspnea on exertion, No shortness of breath, No wheezing Cardiovascular: No chest pain, No claudication, No palpitations Abdomen: No diarrhea, No nausea, No pain, No vomiting Musculoskeletal: No calf pain, No joint pain, No muscle pain Genitourinary - Male: No dysuria, No hematuria, No urinary retention Neurologic: No numbness/tingling, No paralysis, No weakness Integumentary: No color change, No itch, No rash Physical Exam Vital Signs Date Time Temp Pulse Resp B/P Pulse Ox O2 Delivery O2 Flow Rate FiO2 08/17/16 18:50 59 16 137/71 96 08/17/16 17:58 63 08/17/16 17:43 72 17 141/76 94 08/17/16 15:47 65 18 144/80 95 08/17/16 14:56 62 08/17/16 13:52 72 17 154/73 97 08/17/16 12:41 62 08/17/16 12:22 62 16 153/74 96 Room Air 08/17/16 10:59 36.3 78 18 147/89 97 Room Air General Appearance: WD/WN, no apparent distress Head: normocephalic, atraumatic Eyes: normal inspection, PERRL, EOMI ENT: normal ENT inspection, hearing grossly normal, pharynx normal Neck: supple, no JVD, trachea midline Respiratory/Chest: normal breath sounds, no respiratory distress, + crackles ( bases) Cardiovascular: no gallop, no murmur, + irregularly irregular (rate controlled) Abdomen/GI: normal bowel sounds, soft, + tenderness (left lower quadrant mildly tender to palpation) Extremities/Musculoskelatal: no calf tenderness, no pedal edema, + pertinent finding (right lower extremity larger than left lower extremity. Patient states this is chronic due to previous trauma. Chronic venous stasis changes in right leg) Neurologic/Psych: alert, normal mood/affect, oriented x 3 Skin: normal color, warm/dry, no rash Diagnostics Laboratory Results Results Past 24 Hours Test 08/17/16 12:24 08/17/16 14:00 Range/Units White Blood Count 6.83 4.8-10.8 K/uL Red Blood Count 4.17 4.7-6.1 M/uL Hemoglobin 13.3 14.0-18.0 g/dL Hematocrit 40.1 42-52 % Mean Corpuscular Volume 96.2 80-100 fL Mean Corpuscular Hemoglobin 31.9 25-34 pg Mean Corpuscular Hemoglobin Concent 33.2 32-36 g/dl Platelet Count 195 130-400 K/uL Mean Platelet Volume 10.3 7.4-10.4 fL Neutrophils (%) (Auto) 59.9 % Lymphocytes (%) (Auto) 26.5 % Monocytes (%) (Auto) 9.1 % Eosinophils (%) (Auto) 4.0 % Basophils (%) (Auto) 0.4 % Neutrophils # (Auto) 4.09 1.4-6.5 K/uL Lymphocytes # (Auto) 1.81 1.2-3.4 K/uL Monocytes # (Auto) 0.62 0.11-0.59 K/uL Eosinophils # (Auto) 0.27 0-0.5 K/uL Basophils # (Auto) 0.03 0-0.2 K/uL RDW Standard Deviation 49.8 36.4-46.3 fL RDW Coefficient of Variation 14.1 11.5-14.5 % Immature Granulocyte % (Auto) 0.1 % Immature Granulocyte # (Auto) 0.01 0.00-0.02 K/uL Prothrombin Time 21.3 9.0-12.0 SECONDS Prothromb Time International Ratio 1.9 0.9-1.1 Activated Partial Thromboplast Time 43.6 21.0-31.0 SECONDS Partial Thromboplastin Ratio 1.7 Sodium Level 139 136-145 mmol/L Potassium Level 3.9 3.5-5.1 mmol/L Chloride Level 103 98-107 mmol/L Carbon Dioxide Level 29 21-32 mmol/L Anion Gap 7.0 3-11 mmol/L Blood Urea Nitrogen 13 7-18 mg/dl Creatinine 0.91 0.60-1.40 mg/dl Est Creatinine Clear Calc Drug Dose 67.6 ml/min Estimated GFR () 96.6 Estimated GFR (Non- 83.3 BUN/Creatinine Ratio 13.7 10-20 Random Glucose 80 70-99 mg/dl Calcium Level 8.9 8.5-10.1 mg/dl Magnesium Level 2.1 1.8-2.4 mg/dl Total Bilirubin 0.6 0.2-1 mg/dl Direct Bilirubin 0.1 0-0.2 mg/dl Aspartate Amino Transf (AST/SGOT) 19 15-37 U/L Alanine Aminotransferase (ALT/SGPT) 17 12-78 U/L Alkaline Phosphatase 82 45-117 U/L Total Protein 7.8 6.4-8.2 gm/dl Albumin 3.7 3.4-5.0 gm/dl Urine Color YELLOW Urine Appearance CLEAR CLEAR Urine pH 6.0 4.5-7.5 Urine Specific [place] 1.008 1.000-1.030 Urine Protein NEG NEG Urine Glucose (UA) NEG NEG Urine Ketones NEG NEG Urine Occult Blood NEG NEG Urine Nitrite NEG NEG Urine Bilirubin NEG NEG Urine Urobilinogen NEG NEG Urine Leukocyte Esterase NEG NEG Microbiology Results 08/17/16 Shiga Toxin Test, Received Pending 08/17/16 Stool Culture, Received Pending 08/17/16 C.difficile Toxin B Gene (PCR) - Final, Complete Positive for C. difficile toxin B gene Diagnostic Radiology Reviewed the following studies and agree with interpretation as follows: Patient Name: FERNANDO COVARRUBIAS Unit Number: [id number] Dictated: 08/17/161453 Transcribed: 08/17/161453 ALEX Printed Date/Time: [~ rep prt dt]/[~ rep prt tm] [~ rep ct labl] - [~ rep ct ivnm] [facility] [place] [address] Dictated: 08/17/164 Transcribed: 08/17/16 1454 PAJ Printed Date/Time: [~ rep prt dt]/[~ rep prt tm] [~ rep ct labl] - [~ rep ct ivnm] Patient: FERNANDO COVARRUBIAS Address1: [address] [facility] Rec: [id number] Address2: Acct ID: [id number] [facility] Zip: [place] [address] Date: 1940 Sex: M Room/Bed: Ref Phy: Isaac Still MD SC: C.EDC Att Phy: Report #: [id number] Elizabeth Phy: Isaac Still MD Test: APIV Admit Phy: Tallow Pumper: MEHUL Interpreting Phy: Rudy Cheatham MD Diagnosis: BLOOD AND PUSS IN STOOL Ordering Phy: Meghan Holland M.D. Service Date: 08/17/16 Admit Date: 08/17/16 MNE: [id number] CONF: DICTATED BY: Rudy Cheatham M.D.]] CC: Isaac Still MD Flickinger, Bridget B., M.D. Endcc: [~ rep ct add3]] ABDOMEN AND PELVIS CT WITH IV CONTRAST CT DOSE: 602.55 mGy.cm HISTORY: Rectal pain. proctitis TECHNIQUE: Multiaxial CT images of the abdomen and pelvis were performed following the use of intravenous contrast. COMPARISON STUDY: Abdomen and pelvis CT 06/20/2016. FINDINGS: Moderate thickening of the rectum with mild perirectal fat stranding. There is a 3.7 x 1.3 cm right and posterior perirectal abscess. 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 This has increased in size. No evidence for bowel obstruction. The lung bases are essentially clear. Severe osteoarthritis within the left hip, unchanged. No suspicious lytic or blastic osseous lesions. The liver, gallbladder, pancreas, and adrenal glands are unremarkable. Trace fluid adjacent to the spleen, unchanged. No hydronephrosis. Scarring within the upper pole of the kidneys. IMPRESSION: 1. Interval development of a 3.7 x 1.3 cm right and posterior perirectal abscess. 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 2. Moderate thickening of the rectum consistent with a proctitis. Electronically signed by: Rudy Cheatham M.D. 08/17/2016 3:05 PM Dictated Date/Time: 08/17/2016 2:54 PM The status of this report is Signed. Draft = Not yet reviewed or approved by Radiologist. Signed = Reviewed and approved by Radiologist. <AttendingPhy></AttendingPhy> <FamilyPhy>Isaac Still MD</FamilyPhy> < PrimaryPhy>Isaac Still MD</PrimaryPhy> <UnitNumber>[id number]</UnitNumber> <VisitNumber>[id number]</VisitNumber> <PatientName>FENRANDO COVARRUBIAS</PatientName > <DateOfBirth>1940</DateOfBirth> <Location>C.EDC</Location> <ServiceDate> 08/17/16</ServiceDate> <MNE>ESINDI</MNE> <OrderingPhy>Meghan Holland M.D. </OrderingPhy> <OrderingPhyMNE>f rep ord dr tavarez</OrderingPhyMNE> < DictatingPhyMNE>f rep dict dr tavarez</DictatingPhyMNE> <CCListMNE>f rep ct corby</ CCListMNE> <AdmittingPhyMNE>f pt admit dr tavarez</AdmittingPhyMNE> <AttendingPhyMNE >f pt attend dr tavarez</AttendingPhyMNE> <ConsultingPhyMNE>f pt consult dr tavarez</ConsultingPhyMNE> <FamilyPhyMNE>f pt fam dr tavarez</FamilyPhyMNE> <OtherPhyMNE>f pt other dr tavarez</OtherPhyMNE> < PrimaryPhyMNE>f pt prim care dr tavarez</PrimaryPhyMNE> <ReferringPhyMNE>f pt referring dr tavarez</ReferringPhyMNE> EKG Reviewed EKG and agree with interpretation as follows: 68, afib Impression Assessment and Plan 75 y/o male with a history of A. fib on warfarin, hypertension, hyperlipidemia, hypothyroidism who presented to the ED on 08/17 with blood and pus in the stool. The patient was recently admitted in early June 2016 with a perirectal abscess, however this was not I&D'd at this time and was just treated with antibiotics. Patient afebrile, vital signs stable on arrival. CT of abdomen and pelvis shows 3.71.3 cm pararectal abscess which is increased in size compared to previous study. Fistula to right gluteal fold now present. Moderate thickening of rectum consistent with proctitis. Stool positive for C. difficile. Labs grossly unremarkable. Proctitis, perirectal abscess, C. difficile--unknown cause of proctitis, although could be due to C. difficile -Admit to [facility] -Consult general surgery, appreciate recs -Check PT/INR, hold warfarin for possible procedure -Cipro 400 mg IV q12h and Flagyl 500 mg IV q8h -Contact precautions -Stool cultures pending Atrial fibrillation, anticoagulated with warfarin--stable, currently rate controlled -Continue carvedilol 3.125 mg PO BID and digoxin 125 g PO qd -Hold warfarin HTN--stable -Continue spironolactone 25 mg PO BID, carvedilol as above HLD -Continue atorvastatin 10 mg PO qd Hypothyroidism -Continue Synthroid 88 g PO qd DVT prophylaxis -Hold chemical prophylaxis for now in case of procedure -KALIN cantor and SCDs Code Status -Level V, DO NOT RESUSCITATE This chart was completed in part utilizing [employer] Speech Voice Recognition software. Attempts were made to minimize the grammatical errors, random word insertions, pronoun errors and incomplete sentences. Any formal questions or concerns about the content, text or information contained within the body of this dictation should be directly addressed to the provider for clarification. Level of Care Med/Surg Resuscitation Status DO NOT RESUSCITATE VTE Prophylaxis VTE Risk Assessment Done? Y/N: Yes Risk Level: Moderate Given or contraindicated: T.ECammie Stockings, SCD's Reviewed: Pt Seen/Exam by Me History Pt feels his diarrhea has slowed a bit. Has not eaten much recently, but would like something now. No chest pain or SOB. Has lower abd pain. Agree with HPI/ROS as noted. General Appearance: WD/WN, no apparent distress Respiratory: normal breath sounds, no respiratory distress Cardiovascular: normal peripheral pulses, regular rate, rhythm Gastrointestinal: soft, tenderness (lower abd) Extremities: non-tender, no pedal edema Neurologic/Psychiatric: alert, oriented x 3 Skin Characteristics: normal color, warm/dry Assessment/Plan Agree with plan as outlined above Recent with recent hospitalization for adelina-rectal abscess that was managed conservatively and failed, now with fistula Also with proctitis and cdiff now Krissy, cipro Gen surg c/s pending Holding coumadin for likely OR
[2016-08-17] MEDS ORDERED: DIGOXIN 0.125 MG TAB PO SCH (21:00)
[2016-08-17 21:22] VITALS: BP 120/78; PULSE 62
[2016-08-17] MEDS: SPIRONOLACTONE 25 MG TAB PO SCH (21:24)
[2016-08-17] MEDS: CARVEDILOL 3.125 MG TAB PO SCH (21:25)
[2016-08-17 23:30] VITALS: BP 122/80; PULSE 69; TEMP 37; O2SAT 95
[2016-08-17] MEDS: METRONIDAZOLE / NSS 500 MG in PREMIXED NSS 100 ML IV SCH (23:48)
[2016-08-18] MEDS ORDERED: CIPROFLOXACIN / D5W 400 MG in PREMIXED IN D5W 200 ML IV SCH (04:00)
[2016-08-18 05:59] LABS: HEMATOCRIT 36.6 % (42-52); MEAN CELL VOLUME 95.8 fL (80-100); MEAN CORPUSCULAR HEMOGLOBIN 31.2 pg (25-34); MEAN CORPUSCULAR HGB CONC 32.5 g/dl (32-36); MEAN PLATELET VOLUME 10.2 fL (7.4-10.4); PLATELET COUNT 166 K/uL (130-400); RED BLOOD COUNT 3.82 M/uL (4.7-6.1); WHITE BLOOD COUNT 6.95 K/uL (4.8-10.8)
[2016-08-18] MEDS ORDERED: LEVOTHYROXINE 88 MCG TAB PO SCH (06:00)
[2016-08-18 06:27] LABS: BUN/CREATININE RATIO 18.4 (10-20); CALCIUM 8.5 mg/dl (8.5-10.1); CREATININE 0.82 mg/dl (0.60-1.40); POTASSIUM 3.8 mmol/L (3.5-5.1)
[2016-08-18 07:30] VITALS: BP 131/83; PULSE 58; TEMP 37; O2SAT 95
[2016-08-18 08:00] VITALS: O2SAT 95
[2016-08-18] MEDS: METRONIDAZOLE / NSS 500 MG in PREMIXED NSS 100 ML IV SCH (08:20)
[2016-08-18 08:32] VITALS: BP 135/72; PULSE 68
[2016-08-18] MEDS: SPIRONOLACTONE 25 MG TAB PO SCH (08:33)
[2016-08-18] MEDS: CARVEDILOL 3.125 MG TAB PO SCH (08:33)
[2016-08-18 08:57] LABS: BASO % 0.4 %; BASO ABS # 0.03 K/uL (0-0.2); COMPLETE YES; HEMATOCRIT 38.2 % (42-52); IG% 0.4 %; LYMPH % 16.8 %; LYMPH ABS # 1.24 K/uL (1.2-3.4); MEAN CORPUSCULAR HEMOGLOBIN 30.1 pg (25-34); MEAN CORPUSCULAR HGB CONC 31.7 g/dl (32-36); MEAN PLATELET VOLUME 9.3 fL (7.4-10.4); MONO % 11.9 %; NEUT % 67.5 %; PLATELET COUNT 165 K/uL (130-400); RED BLOOD COUNT 4.02 M/uL (4.7-6.1); WHITE BLOOD COUNT 7.39 K/uL (4.8-10.8)
[2016-08-18] MEDS ORDERED: ATORVASTATIN 10 MG TAB PO SCH (09:00)
[2016-08-18 09:10] LABS: INR 1.6 (0.9-1.1)
--- NOTE | 2016-08-18 09:21 | CONSULTATION REPORT ---
DATE OF CONSULTATION: 08/18/2016 I called yesterday by Dr. Holland in the ER regarding this gentleman who on examination by CAT scan was found to have about a 3 cm perirectal abscess with a fistula, also had bloody mucousy movement. At that time, I asked that the patient be evaluated by the medical service and probably treated since he also became positive for C. diff. The gentleman apparently had been here about a month before with a similar problem, although at that time looking over the notes showed that the perirectal area had a 1 cm or so abscess that resolved with antibiotics. The patient is not really complaining of any rectal pain at this time. Only brought into the Emergency Room was that he had seen blood in his bowel movements with some purulence. PAST MEDICAL HISTORY: Positive for atrial fibrillation, on Coumadin, coronary artery disease, hypertension, hypothyroidism. PAST SURGICAL HISTORY: Only surgery was for cataracts and colon resection for diverticulitis. FAMILY HISTORY: Really noncontributory. SOCIAL HISTORY: Never smoker. No alcohol use. The patient lives with family, son and [id number]. HOME MEDICATIONS: Well listed on the medicine reconciliation sheet, therefore, will not reiterate it. PHYSICAL EXAMINATION: GENERAL: When I saw him today, Lali is in no acute distress. He is resting comfortably, though he is sort of weak moving around and he said he has some trouble with motion. HEAD: Normocephalic. EYES: PERRLA. EARS, NOSE AND THROAT: Negative. HEART: Normal sinus rhythm. LUNGS: Clear. ABDOMEN: Completely benign. RECTUM: The perirectal area is inspected. At this time, there is no evidence of any induration, no masses that I can appreciate, and the patient has no tenderness on exam. I did not do a digital exam of the rectum itself but of the areas that were suspicious for the masses. EXTREMITIES: Grossly normal. VITAL SIGNS: Temperature of 37, pulse 68, respirations 16, blood pressure 131/83, O2 sats 95 on room air. LABORATORY: He has no white count and hemoglobin is 11.8. A CAT scan was reviewed which revealed that he may have a fistulous tract. IMPRESSION: At this point, there is no surgery indicated. He may have a fistulous tract that maybe spontaneously drains his abscess, but until he points more specifically, there is no indication to proceed with any surgery. Certainly, the 3 cm abscess can also be treated with antibiotics that will be for C. diff. We will follow along with you. I have no restriction on his diet but I will leave that decision to the primary service. Thank you.
[2016-08-18 09:26] LABS: BUN/CREATININE RATIO 14.3 (10-20); CREATININE 0.84 mg/dl (0.60-1.40); MAGNESIUM 1.9 mg/dl (1.8-2.4); POTASSIUM 3.9 mmol/L (3.5-5.1)
[2016-08-18 09:38] LABS: CALCIUM 8.6 mg/dl (8.5-10.1)
[2016-08-18] MEDS ORDERED: CPR500 PO (10:59)
[2016-08-18] MEDS ORDERED: METR500T PO (10:59)
--- NOTE | 2016-08-18 11:00 | Discharge Instructions ---
Discharge Instructions Date of Service Aug 18, 2016. Admission Reason for Admission: C. Difficile Colitis, Perirectal Abscess Discharge Discharge Diagnosis / Problem: Cdiff, proctitis; adelina-rectal abscess with ? fistula Discharge Goals Goal(s): Decrease discomfort, Improve disease control, Prevent Disease Progression Activity Recommendations Activity Limitations: resume your previous activity . Current Hospital Diet Patient's current hospital diet: AHA Diet (Heart Healthy) Discharge Diet Recommended Diet: AHA Diet (Heart Healthy) Pending Studies Studies pending at discharge: no Medical Emergencies . Who to Call and When: Medical Emergencies: If at any time you feel your situation is an emergency, please call 911 immediately. . Non-Emergent Contact Non-Emergency issues call your: Primary Care Provider, Tier Truck Driver . . "Provider Documentation" section prepared by Eileen Diallo. . VTE Core Measure Inpt VTE Proph given/why not?: Lori Tomlinson, SCD's
--- NOTE | 2016-08-18 11:11 | Discharge Summary ---
Discharge Summary Date of Service Aug 18, 2016. Discharge Summary Admission Date: Aug 17, 2016 at 18:18 Discharge Date: Aug 18, 2016 Discharge Disposition: Home (home with son) Principal Diagnosis: C diff proctitis, perirectal abscess Medication Reconciliation New Medications: Ciprofloxacin (Ciprofloxacin HCl) 500 Mg Tab 500 MG PO BID for 10 Days Metronidazole (Flagyl) 500 Mg Tab 500 MG PO TID for 15 Days, #45 TAB Continued Medications: Atorvastatin (Lipitor) 10 Mg Tab 10 MG PO DAILY, TAB Carvedilol (Coreg) 3.125 Mg Tab 3.125 MG PO BID, TAB Digoxin (Digoxin) 0.125 Mg Tab 0.125 MG PO QPM Docusate Sodium (Docusate Sodium) 100 Mg Cap 100 MG PO BID PRN for CONSTIPATION for 30 Days, #60 CAP Levothyroxine Sodium (Levothyroxine Sodium) 88 Mcg Tab 1 TAB PO DAILY for 30 Days, #30 TAB 5 Refills Potassium Chloride (Klor-Con Ext Rel) 8 Meq Tabcr 8 MEQ PO BID, CAP Spironolactone (Spironolactone) 25 Mg Tab 25 MG PO BID Warfarin Sod (Jantoven) 2 Mg Tab 2 MG PO Q2D, TAB STARTS ON SATURDAY WITH 4MG THEN ALTERNATES DOSES Warfarin Sod (Jantoven) 4 Mg Tab 4 MG PO Q2D, TAB STARTS ON WITH 4MG THEN ALTERNATES DOSES Hospital Course This is a 75 y/o male with a history of A. fib on warfarin, hypertension, hyperlipidemia, hypothyroidism who presented to the ED on 08/17 with blood and pus in the stool. The patient was recently admitted in early June 2016 with a perirectal abscess, however this was not I&D'd at this time and was just treated with antibiotics. Patient complains of seeing blood in and pus in his stool since yesterday. He denies any pain with bowel movements, and denies any diarrhea. He states he feels more weak and fatigued than usual. He currently denies any abdominal pain, nausea, vomiting. He does state he has not been eating as much as he normally does. His main complaint right now is that he is very cold and this is a chronic problem. The patient denies fevers, chills, sweats, chest pain, palpitations, claudication, cough, wheezing, shortness of breath, nausea, vomiting, abdominal pain, dysuria, hematuria, urinary retention , paralysis, weakness, numbness and tingling. Patient is being treated for C diff with flagyl IV, diarrhea is already improving, stools not watery, but still loose. He was also evaluated by surgery who recommended conservative medical treatment with antibiotics for his adelina- rectal abscess with possible fistula. He will be sent homeo on 10 days of cipro 500 mg bid and flagyl po for 15 days. His coumadin was also held overnight due to anticipated OR procedure. Subsequnetly, INR was subtherapeutic.I spoke with his son Jaret Doe who he lives with and discussed the plan. He will need to take 4 mg of coumadin for the next 3 days and resume his usual home regimen thereafter of alternative 2mg and 4mg. He will need to follow-up with Dr. Vasquez for INR checks and his primary care physician to re-evaluate his adelina-rectal abscess. If his diarrhea worsens, or if he develops high-grade fevers or significant abdominal pain, he should come back to the ED for an evaluation. Son verbalized understanding. On day of discharge, patient felt well. Tolerating diet. No chest pain, no sob. He reports his rectal area is fine and no pain. No n/v. Stools are loose but not watery. Vital Signs Date Time Temp Pulse Resp B/P Pulse Ox O2 Delivery O2 Flow Rate FiO2 08/18/16 12:52 37.0 68 16 95 Room Air 08/18/16 08:32 135/72 nad, aox3 irreg irreg, no murmurs appreciated ctab no w/r/r abd soft nd/nt +BS no LE edema Total Time Spent: Greater than 30 minutes This includes examination of the patient, discharge planning, medication reconciliation, and communication with other providers. Discharge Instructions Please refer to the electronic Patient Visit Report (Discharge Instructions) for additional information. Additional Copies To Isaac Still MD; Toro Vasquez M.D.
[2016-08-18 12:52] VITALS: BP 135/72; PULSE 68; TEMP 37; O2SAT 95
[2016-09-16] MEDS ORDERED: ATOR10TA82 PO (14:47)
[2016-09-16] MEDS ORDERED: SPR25 PO (14:47)
[2016-09-16] MEDS ORDERED: POTA8CAP6 PO (17:44)
[2016-10-12] MEDS ORDERED: VNCS125 PO (18:15)
[2016-10-12] MEDS ORDERED: MTR500 PO (18:15)
[2016-10-12] MEDS ORDERED: AZTR1INJ5 IV (18:15)
== END 2016-08-18 13:42 | disposition home or self-care (01) | DRG 394 ==
LOC: ENRESERVDT → ENRESERVTM → C.EDB 10:55 → C.MSW 18:18
PROVIDERS: ADMIT Family Medicine; ATTEND Family Medicine
DX: K61.1 Rectal abscess (principal); A04.7 Enterocolitis due to Clostridium difficile; K62.89 Other specified diseases of anus and rectum; B96.89 Other specified bacterial agents as the cause of diseases classified elsewhere; R79.1 Abnormal coagulation profile; I48.91 Unspecified atrial fibrillation; I10 Essential (primary) hypertension; I25.10 Atherosclerotic heart disease of native coronary artery without angina pectoris; E78.5 Hyperlipidemia, unspecified; E03.9 Hypothyroidism, unspecified; Z66 Do not resuscitate; Z95.5 Presence of coronary angioplasty implant and graft; Z79.01 Long term (current) use of anticoagulants; Z79.899 Other long term (current) drug therapy

== ENCOUNTER 2016-09-16 21:31 | Inpatient (IN) | payer OTHER ==
[~2016-09-16] VITALS: Ht 170.2 cm; Wt 76.1 kg
[~2016-09-16 21:31] MED LIST changes: +ATOR10TA82 PO; -BCTO EXT; -CLC150 PO; +CPR500 PO; -FLM4 PO; -LCTX PO; -LEVO88TA PO; +LEVO88TA3 PO; +SPR25 PO
[2016-09-16] MEDS ORDERED: MoRPHine SULFATE 4 MG/ML 1 ML CARP\\VIAL IV STA (22:02)
[2016-09-16] MEDS ORDERED: ONDANSETRON INJ 2 MG/ML 2 ML VIAL IV STA (22:02)
[2016-09-16 22:38] LABS: BASO % 0.3 %; BASO ABS # 0.03 K/uL (0-0.2); COMPLETE YES; HEMATOCRIT 43.6 % (42-52); IG% 0.2 %; LYMPH % 13.9 %; LYMPH ABS # 1.55 K/uL (1.2-3.4); MEAN CELL VOLUME 95.6 fL (80-100); MEAN CORPUSCULAR HEMOGLOBIN 31.6 pg (25-34); MEAN PLATELET VOLUME 9.9 fL (7.4-10.4); MONO % 10.2 %; NEUT % 73.4 %; PLATELET COUNT 194 K/uL (130-400); RED BLOOD COUNT 4.56 M/uL (4.7-6.1); WHITE BLOOD COUNT 11.12 K/uL (4.8-10.8)
[2016-09-16 22:50] LABS: INR 1.5 (0.9-1.1); PARTIAL THROMBOPLASTIN RATIO 1.3; PROTHROMBIN TIME (PATIENT) 15.8 SECONDS (9.0-12.0)
[2016-09-16 22:56] LABS: BUN/CREATININE RATIO 11.1 (10-20); POTASSIUM 3.9 mmol/L (3.5-5.1)
[2016-09-16 23:04] LABS: CALCIUM 9.2 mg/dl (8.5-10.1)
[2016-09-16] MEDS ORDERED: OPTIRAY 320 IV PRN (23:45)
--- NOTE | 2016-09-17 02:11 | EMERGENCY ROOM VISIT NOTE ---
History Report prepared by Esther: Sonia Ibrahim Under the Supervision of: Dr. Khris Solares M.D. First contact with patient: 21:55 Chief Complaint: ABDOMINAL PAIN Stated Complaint: LOWER RT ABD PAIN Nursing Triage Summary: Nausea, diarrhea and RLQ abd pain for 4 days. Sx worsened tonight. History of Present Illness The patient is a 75 year old male who presents to the Emergency Room with complaints of worsening right lower quadrant abdominal pain beginning this morning. The patient states that he was bending over putting his shoes on this morning when the pain began. He describes the pain as sharp. The patient is experiencing nausea and diarrhea. He recently had an abscess last month and notes that this pain feels different from what he experienced then. He states that he was treated for it and it went away. The patient denies recent fevers, vomiting, rectal bleeding, or urinary symptoms such as burning. He has no history of abdominal surgeries. The patient is currently on Coumadin for atrial fibrillation. Source of History: patient Onset: this morning Position: abdomen (RLQ) Quality: sharp Timing: worsening Modifying Factors (Worsening): other (bending over) Associated Symptoms: + diarrhea, + nausea, No fevers, No urinary symptoms, No vomiting Review of Systems See HPI for pertinent positives & negatives. A total of 10 systems reviewed and were otherwise negative. Past Medical & Surgical Medical Problems: (1) Atrial fibrillation (2) CAD (coronary artery disease) (3) HTN (hypertension) (4) Hypothyroidism Surgical Problems: (1) History of cataract surgery (2) History of colon resection Family History Cancer Diabetes mellitus Gallbladder disease Heart disease Kidney disease Kidney stones Lung disease Social History Smoking Status: Never Smoker Drug Use: none Marital Status: Housing Status: lives with family Occupation Status: retired Current/Historical Medications Scheduled Atorvastatin (Lipitor), 10 MG PO DAILY Carvedilol (Coreg), 3.125 MG PO BID Digoxin (Digoxin), 0.125 MG PO QPM Levothyroxine Sodium (Levothyroxine Sodium), 1 TAB PO DAILY Potassium Chloride (Klor-Con Ext Rel), 8 MEQ PO BID Spironolactone (Spironolactone), 25 MG PO BID Warfarin Sod (Jantoven), 2 MG PO Q2D Warfarin Sod (Jantoven), 4 MG PO Q2D Scheduled PRN Docusate Sodium (Docusate Sodium), 100 MG PO BID PRN for CONSTIPATION Allergies Coded Allergies: Morphine (Verified Allergy, Mild, RASH, 09/16/16) Amoxicillin (Verified Allergy, Unknown, ., 06/20/16) Cephalexin (Verified Allergy, Unknown, ., 06/20/16) Clavulanic Acid (Verified Allergy, Unknown, ., 06/20/16) Penicillins (Verified Allergy, Unknown, ., 06/20/16) Physical Exam Vital Signs Date Time Temp Pulse Resp B/P Pulse Ox O2 Delivery O2 Flow Rate FiO2 09/17/16 01:57 69 121/85 96 Room Air 09/17/16 00:19 77 18 121/85 98 Room Air 09/16/16 22:50 80 09/16/16 22:43 92 20 160/109 96 Room Air 09/16/16 21:38 36.7 90 20 167/92 97 Room Air Physical Exam Constitutional: Vital signs reviewed. Eyes: Pupils are equal round reactive to light. Conjunctiva are noninjected. ENT: Pharynx is clear without erythema or exudate. Mucous membranes are moist. Neck supple without meningeal signs. Respiratory: Clear to auscultation bilaterally. Breath sounds are equal bilaterally. Cardiovascular: Irregularly irregular rhythm. Normal rate. No rubs or gallops. GI: Right mid abdominal tenderness, no guarding, soft, and nondistended. Bowel sounds are present. Musculoskeletal: No peripheral edema. No lower extremity tenderness. Integumentary: No cyanosis. Neurological: The patient is awake and alert. No focal deficits. Psychiatric: Normal affect. Medical Decision & Procedures ER Provider Diagnostic Interpretation: CT results as stated below per my review and [facility] radiologist interpretation. CT ABDOMEN & PELVIS: Compared to 08/17/16. Redemonstration of perirectal abscess, stable to slightly improved at the posterior aspect with persistent right lateral component measuring 3.2 x 1.2 cm. Persistent fistulous tract extending to the right gluteal fold. Mild rectosigmoid wall thickening. Bibasilar atelectatic changes. Additional findings similar to prior study. Radiologist: Teresa Lam M.D. Study read at 01:07 Laboratory Results 09/16/16 22:31 Red Blood Count 4.56, Mean Corpuscular Volume 95.6, Mean Corpuscular Hemoglobin 31.6, Mean Corpuscular Hemoglobin Concent 33.0, Mean Platelet Volume 9.9, Neutrophils (%) (Auto) 73.4, Lymphocytes (%) (Auto) 13.9, Monocytes (%) (Auto) 10.2, Eosinophils (%) (Auto) 2.0, Basophils (%) (Auto) 0.3, Neutrophils # (Auto ) 8.17, Lymphocytes # (Auto) 1.55, Monocytes # (Auto) 1.13, Eosinophils # (Auto ) 0.22, Basophils # (Auto) 0.03 09/16/16 22:31 Test 09/16/16 22:31 09/17/16 01:35 White Blood Count 11.12 K/uL (4.8-10.8) Red Blood Count 4.56 M/uL (4.7-6.1) Hemoglobin 14.4 g/dL (14.0-18.0) Hematocrit 43.6 % (42-52) Mean Corpuscular Volume 95.6 fL (80-100) Mean Corpuscular Hemoglobin 31.6 pg (25-34) Mean Corpuscular Hemoglobin Concent 33.0 g/dl (32-36) Platelet Count 194 K/uL (130-400) Mean Platelet Volume 9.9 fL (7.4-10.4) Neutrophils (%) (Auto) 73.4 % Lymphocytes (%) (Auto) 13.9 % Monocytes (%) (Auto) 10.2 % Eosinophils (%) (Auto) 2.0 % Basophils (%) (Auto) 0.3 % Neutrophils # (Auto) 8.17 K/uL (1.4-6.5) Lymphocytes # (Auto) 1.55 K/uL (1.2-3.4) Monocytes # (Auto) 1.13 K/uL (0.11-0.59) Eosinophils # (Auto) 0.22 K/uL (0-0.5) Basophils # (Auto) 0.03 K/uL (0-0.2) RDW Standard Deviation 48.8 fL (36.4-46.3) RDW Coefficient of Variation 13.9 % (11.5-14.5) Immature Granulocyte % (Auto) 0.2 % Immature Granulocyte # (Auto) 0.02 K/uL (0.00-0.02) Prothrombin Time 15.8 SECONDS (9.0-12.0) Prothromb Time International Ratio 1.5 (0.9-1.1) Activated Partial Thromboplast Time 34.0 SECONDS (21.0-31.0) Partial Thromboplastin Ratio 1.3 Anion Gap 9.0 mmol/L (3-11) Est Creatinine Clear Calc Drug Dose 61.5 ml/min Estimated GFR () 86.2 Estimated GFR (Non- 74.3 BUN/Creatinine Ratio 11.1 (10-20) Calcium Level 9.2 mg/dl (8.5-10.1) Total Bilirubin 0.5 mg/dl (0.2-1) Direct Bilirubin 0.1 mg/dl (0-0.2) Aspartate Amino Transf (AST/SGOT) 22 U/L (15-37) Alanine Aminotransferase (ALT/SGPT) 21 U/L (12-78) Alkaline Phosphatase 66 U/L (45-117) Total Protein 8.0 gm/dl (6.4-8.2) Albumin 3.6 gm/dl (3.4-5.0) Lipase 164 U/L (73-393) Laboratory results as reviewed by me. Medications Administered Medications (Trade) Dose Ordered Sig/Baldo Route Start Time Stop Time Status Last Admin Dose Admin Morphine Sulfate (MoRPHine SULFATE INJ) 4 mg ONE STAT IV 09/16/16 22:02 09/16/16 22:04 DC 09/16/16 22:25 4 MG Ondansetron HCl (Zofran Inj) 4 mg NOW STAT IV 09/16/16 22:02 09/16/16 22:04 DC 09/16/16 22:25 4 MG ED Course 2156: The patient was evaluated in room B2. A complete history and physical exam was performed. 2201: Zofran Inj 4 mg IV, Morphine Sulfate Inj 4 mg IV. 0029: I reevaluated the patient. He is waiting for CT scan. 0148: I spoke with Dr. Gonzalez - Becky about the patient. He will come evaluate the patient. 0203: I [place] [facility] discussed the patient and his results. The patient will be further evaluated by Dr. Cooper - [facility] Medical Decision This is a 75-year-old male who presents with abdominal pain and diarrhea. Differential diagnosis includes colitis, abscess, perforation, appendicitis, enteritis. I did perform a limited focused review of portions of the patient's old chart on the electronic medical record. The patient was hospitalized on August 17 for perirectal abscess and fistula with proctitis. He was treated with antibiotics. Medication Reconciliation: I attest that I have personally reviewed the patient' s current medication list. Blood Pressure Screening: Patient was found to have an elevated blood pressure and was referred to their primary doctor for recheck and further treatment. I did evaluate the patient as noted above. IV access was established. I did treat patient with IV morphine and Zofran. I did order stool cultures and testing for C. difficile. The patient was unable to provide a specimen. I did order the patient's urinalysis as described above. I did order and review the patient's blood work as noted in the electronic medical record. His white blood cell count is slightly elevated. INR is subtherapeutic. I did order a CT of the abdomen and pelvis. I did review the images myself as well as the radiology report as described above. He does have a persistent perirectal abscess. 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 I did discuss the case with Dr. Gonzalez of surgery who came to evaluate the patient. He requested that the patient be admitted to the medical service due to his multiple medical problems. I did discuss the case with Dr. Cooper. Consults Time Called: 014 Consulting Physician: Dr. Gonzalez - Surgery Returned Call: [address] Gonzalez - Becky about the patient. He will come evaluate the patient. Additional Consults: Time Called: 0200 Consulted Physician: Dr. Kenneth Li [facility] Returned Call: 020 Additional Comments: I spoke with Dr. Cooper of [facility] We discussed the patient and his results. The patient will be further evaluated by Dr. Kenneth Li [facility]. Impression Primary Impression: Perirectal abscess Additional Impressions: Diarrhea Subtherapeutic international normalized ratio (INR) Fistula Scribe Attestation The scribe's documentation has been prepared under my direct and personally reviewed by me in its entirety. I confirm that the note above accurately reflects all work, treatment, procedures, and medical decision making performed by me. Departure Information Dispostion Being Evaluated By Hospitalist Referrals Isaac Still MD (PCP) Problem Qualifiers Additional Impressions: Diarrhea Diarrhea type: unspecified type Qualified Codes: R19.7 - Diarrhea, unspecified
[2016-09-17 02:19] LABS: URINE APPEARANCE CLEAR (CLEAR); URINE BILIRUBIN NEG (NEG); URINE COLOR YELLOW; URINE NITRITE NEG (NEG); URINE PH 5.5 (4.5-7.5); URINE SPECIFIC GRAVITY 1.011 (1.000-1.030); UROBILINOGEN NEG (NEG)
[2016-09-17 02:20] LABS: MANUAL MICROSCOPIC REQUIRED? NO; REVIEW REQ? NO
[2016-09-17] MEDS ORDERED: ONDANSETRON INJ 2 MG/ML 2 ML VIAL IV PRN (02:30)
[2016-09-17] MEDS ORDERED: ACETAMINOPHEN 325 MG TAB PO PRN (02:30)
--- NOTE | 2016-09-17 02:38 | Medical Consult ---
Consultation Date of Consultation: September 17, 2016. Attending Physician: Reason for Consultation: perirectal abscess History of Present Illness pt presents with diarrhea, dehydration, perirectal pain recent adm to hospital June and July w./ perirectal abscess/ fistula and 08/17/16- c diff outpt f/u is difficult to determine- has had no perirectal surgery- CT shows unchanged Rt perirectal abscess/ fistula over months and thickened rectum Past Medical/Surgical History Medical Problems: (1) C. difficile colitis Status: Acute (2) Diarrhea Status: Acute (3) Fistula Status: Acute (4) Perirectal abscess Status: Acute (5) Perirectal abscess Status: Acute (6) Perirectal cellulitis Status: Acute (7) Proctitis Status: Acute (8) Subtherapeutic international normalized ratio (INR) Status: Acute (9) Tremor Status: Acute (10) Urinary retention Status: Acute (11) Weakness Status: Acute Family History Cancer Diabetes mellitus Gallbladder disease Heart disease Kidney disease Kidney stones Lung disease Social History Smoking Status: Never Smoker Drug Use: none Marital Status: Housing Status: lives with family Occupation Status: retired Allergies Coded Allergies: Morphine (Verified Allergy, Mild, RASH, 09/16/16) Amoxicillin (Verified Allergy, Unknown, ., 06/20/16) Cephalexin (Verified Allergy, Unknown, ., 06/20/16) Clavulanic Acid (Verified Allergy, Unknown, ., 06/20/16) Penicillins (Verified Allergy, Unknown, ., 06/20/16) Current Inpatient Medications Current Inpatient Medications Medications (Trade) Dose Ordered Sig/Baldo Route Start Time Stop Time Status Last Admin Dose Admin Ioversol (Optiray 320) 125 ml UD PRN IV 09/16/16 23:45 09/20/16 23:44 Review of Systems Constitutional: No chills, No fever Respiratory: No cough, No shortness of breath Cardiovascular: No chest pain Abdomen: + diarrhea, No nausea, No pain, No vomiting Genitourinary - Male: No dysuria Neurologic: + weakness Endocrine: + fatigue Integumentary: No rash Physical Exam Date Time Temp Pulse Resp B/P Pulse Ox O2 Delivery O2 Flow Rate FiO2 09/17/16 01:57 69 121/85 96 Room Air 09/17/16 00:19 77 18 121/85 98 Room Air 09/16/16 22:50 80 09/16/16 22:43 92 20 160/109 96 Room Air 09/16/16 21:38 36.7 90 20 167/92 97 Room Air General Appearance: no apparent distress (deconditioned), + thin Eyes: sclerae normal Neck: supple Respiratory/Chest: no respiratory distress Cardiovascular: + irregularly irregular Abdomen/GI: soft, occult blood negative (has opening to Rt of anal area, no overt abscess, fullness and tendernessin anus), + pertinent finding (has opening to Rt of anal area, no overt induration, or cellulitis, + fullness and ) Extremities/Musculoskelatal: no pedal edema Skin: no rash Laboratory Results Last 24 Hours Test 09/16/16 22:31 09/17/16 01:35 White Blood Count 11.12 K/uL Red Blood Count 4.56 M/uL Hemoglobin 14.4 g/dL Hematocrit 43.6 % Mean Corpuscular Volume 95.6 fL Mean Corpuscular Hemoglobin 31.6 pg Mean Corpuscular Hemoglobin Concent 33.0 g/dl Platelet Count 194 K/uL Mean Platelet Volume 9.9 fL Neutrophils (%) (Auto) 73.4 % Lymphocytes (%) (Auto) 13.9 % Monocytes (%) (Auto) 10.2 % Eosinophils (%) (Auto) 2.0 % Basophils (%) (Auto) 0.3 % Neutrophils # (Auto) 8.17 K/uL Lymphocytes # (Auto) 1.55 K/uL Monocytes # (Auto) 1.13 K/uL Eosinophils # (Auto) 0.22 K/uL Basophils # (Auto) 0.03 K/uL RDW Standard Deviation 48.8 fL RDW Coefficient of Variation 13.9 % Immature Granulocyte % (Auto) 0.2 % Immature Granulocyte # (Auto) 0.02 K/uL Prothrombin Time 15.8 SECONDS Prothromb Time International Ratio 1.5 Activated Partial Thromboplast Time 34.0 SECONDS Partial Thromboplastin Ratio 1.3 Sodium Level 136 mmol/L Potassium Level 3.9 mmol/L Chloride Level 99 mmol/L Carbon Dioxide Level 28 mmol/L Anion Gap 9.0 mmol/L Blood Urea Nitrogen 11 mg/dl Creatinine 1.00 mg/dl Est Creatinine Clear Calc Drug Dose 61.5 ml/min Estimated GFR () 86.2 Estimated GFR (Non- 74.3 BUN/Creatinine Ratio 11.1 Random Glucose 137 mg/dl Calcium Level 9.2 mg/dl Total Bilirubin 0.5 mg/dl Direct Bilirubin 0.1 mg/dl Aspartate Amino Transf (AST/SGOT) 22 U/L Alanine Aminotransferase (ALT/SGPT) 21 U/L Alkaline Phosphatase 66 U/L Total Protein 8.0 gm/dl Albumin 3.6 gm/dl Lipase 164 U/L Urine Color YELLOW Urine Appearance CLEAR Urine pH 5.5 Urine Specific [place] 1.011 Urine Protein NEG Urine Glucose (UA) NEG Urine Ketones NEG Urine Occult Blood NEG Urine Nitrite NEG Urine Bilirubin NEG Urine Urobilinogen NEG Urine Leukocyte Esterase NEG Assessment & Plan 09/17/16- pt with diarrhea, dehydration, deconditioning with longstanding perirectal abscess/ probable fistula and proctitis, h/o recent c diff does not need urgent surgery- probable Exam under anesthesia sometime this week- ?drainage, seton placement. Needs IV fluids, ch for c diff, GI eval- may have element of inflammatory bowel disease. hold coumadin, add IV atbx
[2016-09-17] MEDS ORDERED: DiphenhydrAMINE INJ 25 MG in SYRINGE 0 ML IV PRN (02:45)
--- NOTE | 2016-09-17 02:50 | History and Physical ---
History & Physical Date & Time of Service: September 17, 2016 at 02:36 Chief Complaint: Lower Rt Abd Pain Primary Care Physician: Isaac Still MD History of Present Illness Source: patient, clinic records, hospital records This is a 75 yo m that is presenting to us with RLQ pain and diarrhea that he has been suffering from for the past 24 hours. He notes that the RLQ pain is intermittent and depending on the position he is in he will illicit a sharp non radiating pain that primarily occurs on the right side but also the LLQ. It is a 7/10 pain when it occurs and 0/10 without moving. He has had this kind of pain in the past and occurred intermittently over the last two years however in the past 24 hours with this pain he has had a very poor appetite and diarrhea. He was recently admitted to the hospital for his perirectal abscess where no I& D was done. He was noted to be C Diff positive during this admission and was treated with IV Flagyl. On D/C he was sent home with flagyl and cipro which he finished approx 2 weeks prior. Since three weeks ago he has been having "softer stools then normal" and the diarrhea for the past 24 hours. he denies any blood or pus in the stool and denies any rectal pain. At the end of the course of abx he had a diffuse rash however is unsure which antibiotic it was from. He has a history of a bowel resection for a polyp in the past. He also had an MD in the past and follows with a peer health promoter in [place]. He is unable to state if he has CHF but states "maybe a little bit". We also had a prolonged discussion about the patient's code status and he would like to be a DNR. Past Medical/Surgical History Medical Problems: (1) Atrial fibrillation Status: Chronic (2) CAD (coronary artery disease) Permanent Comment: s/p stent x 1 at [facility] ~ 2005, details unknown Status: Chronic (3) HTN (hypertension) Status: Chronic (4) Hypothyroidism Status: Chronic Surgical Problems: (1) History of cataract surgery Status: Chronic (2) History of colon resection Permanent Comment: for diverticulitis Status: Chronic Family History Cancer Diabetes mellitus Gallbladder disease Heart disease Kidney disease Kidney stones Lung disease Social History Smoking Status: Never Smoker Smokeless Tobacco Use: No Alcohol Use: none Drug Use: none Marital Status: Housing status: lives with family Occupational Status: retired Allergies Coded Allergies: Morphine (Verified Allergy, Mild, RASH, 09/16/16) Amoxicillin (Verified Allergy, Unknown, ., 06/20/16) Cephalexin (Verified Allergy, Unknown, ., 06/20/16) Clavulanic Acid (Verified Allergy, Unknown, ., 06/20/16) Penicillins (Verified Allergy, Unknown, ., 06/20/16) Home Medications Scheduled Atorvastatin (Lipitor), 10 MG PO DAILY Carvedilol (Coreg), 3.125 MG PO BID Digoxin (Digoxin), 0.125 MG PO QPM Levothyroxine Sodium (Levothyroxine Sodium), 1 TAB PO DAILY Potassium Chloride (Klor-Con Ext Rel), 8 MEQ PO BID Spironolactone (Spironolactone), 25 MG PO BID Warfarin Sod (Jantoven), 2 MG PO Q2D Warfarin Sod (Jantoven), 4 MG PO Q2D Scheduled PRN Docusate Sodium (Docusate Sodium), 100 MG PO BID PRN for CONSTIPATION Review of Systems Constitutional: No chills, No fever Eyes: No worsening of vision ENT: No hearing loss Respiratory: No cough, No dyspnea at rest, No dyspnea on exertion, No shortness of breath, No sputum, No wheezing Cardiovascular: + chest pain (occasional chest pain which is short lived, BL and unchanged for patient) Abdomen: + diarrhea, + nausea, + pain, No constipation, No vomiting Musculoskeletal: + joint pain (bilat hip pain BL for patient) Genitourinary - Male: No dysuria, No hematuria Neurologic: + balance problems, + weakness, No numbness/tingling Psychiatric: No depression symptoms Endocrine: + fatigue Integumentary: No rash Physical Exam Vital Signs Date Time Temp Pulse Resp B/P Pulse Ox O2 Delivery O2 Flow Rate FiO2 09/17/16 01:57 69 121/85 96 Room Air 09/17/16 00:19 77 18 121/85 98 Room Air 09/16/16 22:50 80 09/16/16 22:43 92 20 160/109 96 Room Air 09/16/16 21:38 36.7 90 20 167/92 97 Room Air General Appearance: no apparent distress Head: normocephalic, atraumatic Eyes: normal inspection ENT: normal ENT inspection Neck: supple Respiratory/Chest: normal breath sounds, no respiratory distress, no accessory muscle use, + decreased breath sounds (bilat bases) Cardiovascular: no murmur, normal peripheral pulses, + irregularly irregular Abdomen/GI: normal bowel sounds, soft, + tenderness (to LLQ and RLQ) Back: normal inspection Extremities/Musculoskelatal: no calf tenderness, + pedal edema (trace bilat) Neurologic/Psych: alert, normal mood/affect, oriented x 3 Skin: normal color, warm/dry, no rash Lymphatic: no adenopathy Diagnostics Laboratory Results Results Past 24 Hours Test 09/16/16 22:31 09/17/16 01:35 Range/Units White Blood Count 11.12 4.8-10.8 K/uL Red Blood Count 4.56 4.7-6.1 M/uL Hemoglobin 14.4 14.0-18.0 g/dL Hematocrit 43.6 42-52 % Mean Corpuscular Volume 95.6 80-100 fL Mean Corpuscular Hemoglobin 31.6 25-34 pg Mean Corpuscular Hemoglobin Concent 33.0 32-36 g/dl Platelet Count 194 130-400 K/uL Mean Platelet Volume 9.9 7.4-10.4 fL Neutrophils (%) (Auto) 73.4 % Lymphocytes (%) (Auto) 13.9 % Monocytes (%) (Auto) 10.2 % Eosinophils (%) (Auto) 2.0 % Basophils (%) (Auto) 0.3 % Neutrophils # (Auto) 8.17 1.4-6.5 K/uL Lymphocytes # (Auto) 1.55 1.2-3.4 K/uL Monocytes # (Auto) 1.13 0.11-0.59 K/uL Eosinophils # (Auto) 0.22 0-0.5 K/uL Basophils # (Auto) 0.03 0-0.2 K/uL RDW Standard Deviation 48.8 36.4-46.3 fL RDW Coefficient of Variation 13.9 11.5-14.5 % Immature Granulocyte % (Auto) 0.2 % Immature Granulocyte # (Auto) 0.02 0.00-0.02 K/uL Prothrombin Time 15.8 9.0-12.0 SECONDS Prothromb Time International Ratio 1.5 0.9-1.1 Activated Partial Thromboplast Time 34.0 21.0-31.0 SECONDS Partial Thromboplastin Ratio 1.3 Sodium Level 136 136-145 mmol/L Potassium Level 3.9 3.5-5.1 mmol/L Chloride Level 99 98-107 mmol/L Carbon Dioxide Level 28 21-32 mmol/L Anion Gap 9.0 3-11 mmol/L Blood Urea Nitrogen 11 7-18 mg/dl Creatinine 1.00 0.60-1.40 mg/dl Est Creatinine Clear Calc Drug Dose 61.5 ml/min Estimated GFR () 86.2 Estimated GFR (Non- 74.3 BUN/Creatinine Ratio 11.1 10-20 Random Glucose 137 70-99 mg/dl Calcium Level 9.2 8.5-10.1 mg/dl Total Bilirubin 0.5 0.2-1 mg/dl Direct Bilirubin 0.1 0-0.2 mg/dl Aspartate Amino Transf (AST/SGOT) 22 15-37 U/L Alanine Aminotransferase (ALT/SGPT) 21 12-78 U/L Alkaline Phosphatase 66 45-117 U/L Total Protein 8.0 6.4-8.2 gm/dl Albumin 3.6 3.4-5.0 gm/dl Lipase 164 73-393 U/L Urine Color YELLOW Urine Appearance CLEAR CLEAR Urine pH 5.5 4.5-7.5 Urine Specific [place] 1.011 1.000-1.030 Urine Protein NEG NEG Urine Glucose (UA) NEG NEG Urine Ketones NEG NEG Urine Occult Blood NEG NEG Urine Nitrite NEG NEG Urine Bilirubin NEG NEG Urine Urobilinogen NEG NEG Urine Leukocyte Esterase NEG NEG Diagnostic Radiology CT Abd: Redemonstration of perirectal abscess, stable to slight improvement at the posterior aspect with persistent right lateral component 3.2 x 1.2 cm. 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 Mild rectosigmoid wall thickening Impression Assessment and Plan This is a 75 yo m with a history of C diff presenting to us with recent abx use , worsening diarrhea and an ongoing perirectal abscess. Perirectal Abscess - general surgery consult- appreciate input - clear liqiud diet for now - no need to reverse coumadin at this time - no plan for surgery tomorrow however potentially the end of the week Diarrhea with a history of C Diff and antibiotic use (last admission August 17, 2016) - was recently on cipro and flagyl, now with worsening diarrhea - Will start PO vanco and IV flagyl - can deescalate once c diff toxin results return - benadryl available if patient doses develop a rash on flagyl ; according to patient it was only a rash and no resp symptoms - C Diff toxin - stool cultures - gentle rehydration as need updated echo - magnesium and phosphorous ordered CHF, s/p MD, currently on digoxin, spironolactone and carvedilol - Continue digoxin , spironolactone and carvedilol - HIM consult to get most recent echo uploaded Hyperlipidemia - continue atorvastatin Atrial fibrillation - warfarin has been held - follow INR Hypothyroidism - continue synthroid DVT Prophylaxis - SCD in anticipation for surgery Patient states he would like to be a DNR Resident Physician Supervision Note: Pt seen/examined independently. I discussed the case with the resident and agree with the findings and plan as documented in the note. Any exceptions or clarifications are listed here: 75 y/o M w/perirectal abscess and recent C diff treatment presenting with recurrent diarrhea having failed outpt treatment Pt evaluated by surgery - admitted by med due to comorbidities in addition to Coumadin use Pt is a poor historian - could not confirm fevers OE AAO x 2 S1,2 irr CTA NT No CCE P: Treating with Vanc/Flagyl for Cdiff recurrence pending culture results He was evaluated for I&D by surgery however this may be counterproductive if his diarrhea is infectious and has not resolved For now we will not reverse his coumadin as surgery is not imminent - will be reevaluated in a few days We may need to expand antibiotic coverage if his abscess grows or the surrounding area becomes cellulitic Documented By: Domenico Cooper Level of Care Med/Surg Resuscitation Status DO NOT RESUSCITATE VTE Prophylaxis VTE Risk Assessment Done? Y/N: Yes Risk Level: Moderate Given or contraindicated: SCD's Social Service Consult None Apply Note Total Time: Critical Care 30 - 74 minutes Additional Copies To Isaac Still MD
[2016-09-17 02:55] VITALS: BP 121/85; PULSE 79; TEMP 36.7; O2SAT 96; Ht 170.2 cm; Wt 76.1 kg
[2016-09-17 03:20] VITALS: BP 161/94; PULSE 96; TEMP 36.7; O2SAT 94
[2016-09-17] MEDS: SODIUM CHLORIDE 0.9% 1000ML 1,000 ML IV SCH ×2 (03:26→16:28)
[2016-09-17] MEDS: METRONIDAZOLE / NSS 500 MG in PREMIXED NSS 100 ML IV SCH ×3 (04:30→19:43)
[2016-09-17] MEDS ORDERED: DiphenhydrAMINE HCL 50 MG/ML VIAL IV PRN ×2 (06:45)
[2016-09-17 07:11] LABS: HEMATOCRIT 39.6 % (42-52); MEAN CELL VOLUME 94.5 fL (80-100); MEAN CORPUSCULAR HEMOGLOBIN 30.5 pg (25-34); MEAN CORPUSCULAR HGB CONC 32.3 g/dl (32-36); MEAN PLATELET VOLUME 9.6 fL (7.4-10.4); PLATELET COUNT 171 K/uL (130-400); RED BLOOD COUNT 4.19 M/uL (4.7-6.1); WHITE BLOOD COUNT 7.87 K/uL (4.8-10.8)
[2016-09-17 07:23] LABS: INR 1.5 (0.9-1.1); PARTIAL THROMBOPLASTIN RATIO 1.3; PROTHROMBIN TIME (PATIENT) 16.1 SECONDS (9.0-12.0)
[2016-09-17 07:28] VITALS: BP 110/65; PULSE 63; TEMP 37; O2SAT 95
[2016-09-17 07:50] LABS: BUN/CREATININE RATIO 10.4 (10-20); CALCIUM 8.4 mg/dl (8.5-10.1); CREATININE 0.9 mg/dl (0.60-1.40); PHOSPHORUS 4.1 mg/dl (2.5-4.9)
--- NOTE | 2016-09-17 07:54 | DIAGNOSTIC IMAGING REPORT ---
ABDOMEN AND PELVIS CT WITH IV AND ORAL CONTRAST CT DOSE: 606.23 mGy.cm HISTORY: Right-sided abdominal pain. TECHNIQUE: Multiaxial CT images of the abdomen and pelvis were performed following the use of intravenous and oral contrast. COMPARISON STUDY: Abdomen and pelvis CT 08/17/2016. FINDINGS: There is mild rectal wall thickening which has improved. The right-sided/posterior perirectal abscess is again noted and is stable to slightly improved compared the prior study. This measures 3.2 x 1.2 cm. There is persistent small fistula tract extending to the right gluteal 4. Bladder is mildly distended. Mild subsegmental atelectasis seen within the right lung base. Severe osteoarthritis within the left hip. The liver, spleen, gallbladder, pancreas, and adrenal glands are unremarkable. The kidneys enhance normally. No hydronephrosis. Trace perisplenic fluid. Normal appendix. No evidence for bowel obstruction. IMPRESSION: 1. Stable to slightly improved right-sided/posterior perirectal abscess. There is again noted a fistula which extends to the right gluteal fold. 2. Mild rectal wall thickening has slightly improved. Electronically signed by: Rudy Cheatham M.D. 09/17/2016 7:52 AM Dictated Date/Time: 09/17/2016 7:48 AM
[2016-09-17] MEDS: LEVOTHYROXINE 88 MCG TAB PO SCH (09:21)
[2016-09-17] MEDS: RASPBERRY SYRUP 5 ML UDP PO SCH ×4 (09:21→21:40)
[2016-09-17] MEDS: CARVEDILOL 3.125 MG TAB PO SCH ×2 (09:21→21:40)
[2016-09-17] MEDS: VANCOMYCIN HCL 125 MG/2.5ML SOLN PO SCH ×4 (09:21→21:40)
[2016-09-17] MEDS: ATORVASTATIN 10 MG TAB PO SCH (09:21)
[2016-09-17] MEDS: SPIRONOLACTONE 25 MG TAB PO SCH ×2 (09:21→16:28)
--- NOTE | 2016-09-17 13:57 | Family Medicine Progress Note ---
Progress Note Date of Service September 17, 2016. Subjective Pt evaluation today including: conversation w/ patient, physical exam, chart review, lab review Pain: None PO Intake: tolerating clear diet Feeling much better Notes diarrhea with mild abdominal pain Still has some rectal discomfort No other complaints since admission; no events overnight Constitutional: No chills, No fever, No sweats Eyes: No eye pain, No redness, No worsening of vision ENT: No hearing loss, No nasal symptoms, No sore throat, No tinnitus Respiratory: No cough, No shortness of breath, No sputum, No wheezing Cardiovascular: No chest pain, No claudication, No orthopnea, No palpitations Abdomen: + diarrhea, No nausea, No pain, No vomiting Musculoskeletal: No joint pain, No muscle pain Male : No dysuria, No urinary frequency Neurologic: No numbness/tingling, No vertigo, No weakness Heme: No clotting problems Endo: No excessive thirst, No fatigue Skin: No new/changing skin lesions, No rash Medications Current Inpatient Medications Medications (Trade) Dose Ordered Sig/Baldo Route Start Time Stop Time Status Last Admin Dose Admin Ioversol (Optiray 320) 125 ml UD PRN IV 09/16/16 23:45 09/20/16 23:44 Acetaminophen (Tylenol Tab) 650 mg Q4H PRN PO 09/17/16 02:30 10/17/16 02:29 Ondansetron HCl (Zofran Inj) 4 mg Q6H PRN IV 09/17/16 02:30 10/17/16 02:29 Atorvastatin Calcium (Lipitor Tab) 10 mg DAILY PO 09/17/16 09:00 10/17/16 08:59 09/17/16 09:21 10 MG Carvedilol (Coreg Tab) 3.125 mg BID PO 09/17/16 09:00 10/17/16 08:59 09/17/16 09:21 3.125 MG Digoxin (Lanoxin Tab) 0.125 mg DAILY@1600 PO 09/17/16 16:00 10/17/16 15:59 Levothyroxine Sodium (Synthroid Tab) 88 mcg DAILYBB PO 09/17/16 07:30 10/17/16 07:29 09/17/16 09:21 88 MCG Spironolactone 25 mg 25 mg BID17 PO 09/17/16 09:00 10/17/16 08:59 09/17/16 09:21 25 MG Sodium Chloride (Nss 1000ml) 1,000 ml @ 75 mls/hr [id number] IV 09/17/16 02:45 10/17/16 02:44 09/17/16 03:26 75 MLS/HR Vancomycin HCl 125 mg 125 mg QID PO 09/17/16 09:00 10/01/16 08:59 09/17/16 12:30 125 MG Metronidazole/Prmx (Flagyl / Nss/ Premixed Nss) 100 ml @ 100 mls/hr Q8H IV 09/17/16 04:00 10/01/16 03:59 09/17/16 11:54 100 MLS/HR Diphenhydramine HCl (Benadryl Inj) 25 mg Q6H PRN IV 09/17/16 06:45 10/17/16 06:44 Raspberry (Raspberry Syrup 5ml Cup) 5 ml QID PO 09/17/16 09:00 10/01/16 08:59 09/17/16 12:30 5 ML Objective Vital Signs Date Time Temp Pulse Resp B/P Pulse Ox O2 Delivery O2 Flow Rate FiO2 09/17/16 08:25 Room Air 09/17/16 07:28 37.0 63 19 110/65 95 Room Air 09/17/16 03:20 36.7 96 16 161/94 94 Room Air 09/17/16 03:20 Room Air 09/17/16 02:55 36.7 79 20 121/85 96 Room Air 09/17/16 02:54 80 20 121/85 96 Room Air 09/17/16 01:57 69 121/85 96 Room Air 09/17/16 00:19 77 18 121/85 98 Room Air 09/16/16 22:50 80 09/16/16 22:43 92 20 160/109 96 Room Air 09/16/16 21:38 36.7 90 20 167/92 97 Room Air Physical Exam General Appearance: WD/WN, no apparent distress Eyes: normal inspection, EOMI ENT: hearing grossly normal, pharynx normal Neck: supple, no adenopathy, no JVD Respiratory/Chest: lungs clear, no respiratory distress Cardiovascular: no gallop, no murmur, + irregularly irregular Abdomen: normal bowel sounds, non tender, soft Extremities: non-tender, no pedal edema Neurologic/Psychiatric: alert, normal mood/affect, oriented x 3 Skin: normal color, warm/dry, no rash Lymphatic: no adenopathy Laboratory Results Last 24 Hours Test 09/16/16 22:31 09/17/16 01:35 09/17/16 06:50 White Blood Count 11.12 K/uL 7.87 K/uL Red Blood Count 4.56 M/uL 4.19 M/uL Hemoglobin 14.4 g/dL 12.8 g/dL Hematocrit 43.6 % 39.6 % Mean Corpuscular Volume 95.6 fL 94.5 fL Mean Corpuscular Hemoglobin 31.6 pg 30.5 pg Mean Corpuscular Hemoglobin Concent 33.0 g/dl 32.3 g/dl Platelet Count 194 K/uL 171 K/uL Mean Platelet Volume 9.9 fL 9.6 fL Neutrophils (%) (Auto) 73.4 % Lymphocytes (%) (Auto) 13.9 % Monocytes (%) (Auto) 10.2 % Eosinophils (%) (Auto) 2.0 % Basophils (%) (Auto) 0.3 % Neutrophils # (Auto) 8.17 K/uL Lymphocytes # (Auto) 1.55 K/uL Monocytes # (Auto) 1.13 K/uL Eosinophils # (Auto) 0.22 K/uL Basophils # (Auto) 0.03 K/uL RDW Standard Deviation 48.8 fL 47.4 fL RDW Coefficient of Variation 13.9 % 13.8 % Immature Granulocyte % (Auto) 0.2 % Immature Granulocyte # (Auto) 0.02 K/uL Prothrombin Time 15.8 SECONDS 16.1 SECONDS Prothromb Time International Ratio 1.5 1.5 Activated Partial Thromboplast Time 34.0 SECONDS 34.0 SECONDS Partial Thromboplastin Ratio 1.3 1.3 Sodium Level 136 mmol/L 140 mmol/L Potassium Level 3.9 mmol/L 4.0 mmol/L Chloride Level 99 mmol/L 103 mmol/L Carbon Dioxide Level 28 mmol/L 30 mmol/L Anion Gap 9.0 mmol/L 7.0 mmol/L Blood Urea Nitrogen 11 mg/dl 9 mg/dl Creatinine 1.00 mg/dl 0.90 mg/dl Est Creatinine Clear Calc Drug Dose 61.5 ml/min 68.4 ml/min Estimated GFR () 86.2 97.9 Estimated GFR (Non- 74.3 84.4 BUN/Creatinine Ratio 11.1 10.4 Random Glucose 137 mg/dl 86 mg/dl Calcium Level 9.2 mg/dl 8.4 mg/dl Total Bilirubin 0.5 mg/dl Direct Bilirubin 0.1 mg/dl Aspartate Amino Transf (AST/SGOT) 22 U/L Alanine Aminotransferase (ALT/SGPT) 21 U/L Alkaline Phosphatase 66 U/L Total Protein 8.0 gm/dl Albumin 3.6 gm/dl Lipase 164 U/L Urine Color YELLOW Urine Appearance CLEAR Urine pH 5.5 Urine Specific [place] 1.011 Urine Protein NEG Urine Glucose (UA) NEG Urine Ketones NEG Urine Occult Blood NEG Urine Nitrite NEG Urine Bilirubin NEG Urine Urobilinogen NEG Urine Leukocyte Esterase NEG Phosphorus Level 4.1 mg/dl Magnesium Level 2.0 mg/dl Assessment and Plan This is a 75 yo m with a history of C diff presenting to us with recent abx use , worsening diarrhea and an ongoing perirectal abscess. Perirectal Abscess - General surgery recommendations appreciated - Anticipated surgical intervention this week with Dr. Gonzalez - Patient on antibiotics - Given that patient has abscess, would consider addition of gram negative coverage given location Diarrhea with a history of C Diff and antibiotic use - Confirmed Toxin positive on admission - Per LEE, patient categorized as mild moderate severity (Diarrhea without albumin < 3 g/dl) Metronidazole indicated +/- Vancomycin; however due to concurrent abscess, would continue broad coverage for now - Currently on Vancomycin and Flagyl - Continue IV rehydration at 75 ml/hr NSS CHF otherwise unspecified - Patient is on Digoxin , spironolactone and carvedilol - Most recent echocardiogram done at [place], records pending - No echo reports in [facility] Hyperlipidemia - continue atorvastatin Atrial fibrillation - Currently rate controlled - Hold warfarin in anticipation for procedure. - Continue Coreg Hypothyroidism - Continue Synthroid DVT Prophylaxis - Surgery planned for later in the week - INR currently 1.5 - Will start Heparin 5000 TID s.c. can be stopped day prior to procedure Reviewed: Pt Seen/Exam by Me History pain better controlled in lower abdomen and rectal area Constitutional: denies: fever Respiratory: negative: short of breath Cardiovascular: denies chest pain General Appearance: no apparent distress Respiratory: lungs clear, no respiratory distress Cardiovascular: irregularly irregular Gastrointestinal: normal bowel sounds, non tender, soft, other (perianal area with no tenderness) Neurologic/Psychiatric: alert, oriented x 3 Skin Characteristics: warm/dry Assessment/Plan I have reviewed the medical record and performed a history and physical examination of this patient today. I have discussed the case with Dr. Melton. The above note reflects my findings, conclusions, and recommendations.
[2016-09-17] MEDS ORDERED: CIPROFLOXACIN / D5W 400 MG in PREMIXED IN D5W 200 ML IV ONE (14:01)
[2016-09-17] MEDS: CIPROFLOXACIN / D5W 400 MG in PREMIXED IN D5W 200 ML IV SCH (14:27)
[2016-09-17 15:28] VITALS: BP 127/74; PULSE 52; TEMP 37.2; O2SAT 96
[2016-09-17] MEDS: DIGOXIN 0.125 MG TAB PO SCH (16:28)
[2016-09-17 21:38] VITALS: BP 131/72; PULSE 68
[2016-09-17 22:56] VITALS: BP 120/71; PULSE 84; TEMP 36.7; O2SAT 92
[2016-09-18] MEDS: CIPROFLOXACIN / D5W 400 MG in PREMIXED IN D5W 200 ML IV SCH ×2 (02:01→12:43)
[2016-09-18] MEDS: METRONIDAZOLE / NSS 500 MG in PREMIXED NSS 100 ML IV SCH ×3 (03:54→20:45)
[2016-09-18] MEDS: LEVOTHYROXINE 88 MCG TAB PO SCH (05:45)
[2016-09-18 06:42] LABS: MEAN CORPUSCULAR HEMOGLOBIN 31.5 pg (25-34); MEAN CORPUSCULAR HGB CONC 33.2 g/dl (32-36); MEAN PLATELET VOLUME 9.6 fL (7.4-10.4); PLATELET COUNT 161 K/uL (130-400); WHITE BLOOD COUNT 7.32 K/uL (4.8-10.8)
[2016-09-18 06:54] LABS: INR 1.4 (0.9-1.1); PARTIAL THROMBOPLASTIN RATIO 1.3; PROTHROMBIN TIME (PATIENT) 14.9 SECONDS (9.0-12.0)
[2016-09-18 07:12] VITALS: BP 117/75; PULSE 85; TEMP 37; O2SAT 95
[2016-09-18 07:19] LABS: BUN/CREATININE RATIO 8.4 (10-20); CALCIUM 8.3 mg/dl (8.5-10.1); CREATININE 0.83 mg/dl (0.60-1.40); POTASSIUM 3.6 mmol/L (3.5-5.1)
--- NOTE | 2016-09-18 08:40 | Clinical Documentation Query ---
CRISTAL Palomino : CLINICAL DOCUMENTATION QUERY Patient is a 75 year old male admitted with perirectal abscess and recurrent C.Difficile enteritis. Documentation includes CHF, not otherwise specified. No echocardiogram available from outpatient records or [facility] EMR. However, known ischemic heart disease with history of NM, and intrac[facility] in [facility]. Treatment regimen regimen include Digoxin, Spironolactone, and Carvedilol. Please clarify as clinically appropriate. In your clinical opinion is this patient being managed for: (x ) (Likely/suspected) Chronic systolic CHF ( ) Other explanation of clinical findings (Please Explain) ( ) Unable to determine (Please Define) ( ) Need to Discuss ( ) Not Agree The medical record reflects the following clinical findings, treatment, and risk factors. Clinical Indicators: As above Treatment:Treatment regimen regimen include Digoxin, Spironolactone, and Carvedilol Risk Factors: Age, CAD, NM in LAD territory Please clarify and document your clinical opinion in the progress notes and discharge summary. Terms such as "probable", "suspected", "likely", "questionable", "possible", or "still to be ruled out" are acceptable. IF IN AGREEMENT, YOU MUST DOCUMENT ABOVE DIAGNOSTIC STATEMENT IN DAILY PROGRESS NOTES AND DISCHARGE SUMMARY. This document is not part of the patient's record. Thank You, Sanju Franks, AUGUSTO [phone]
--- NOTE | 2016-09-18 08:56 | Surgery Progress Note ---
Surgery Progress Note Date of Service September 18, 2016. Subjective doing better- still some perianal pain Objective Vital Signs: Date Time Temp Pulse Resp B/P Pulse Ox O2 Delivery O2 Flow Rate FiO2 09/18/16 07:30 Room Air 09/18/16 07:12 37.0 85 20 117/75 95 Room Air 09/17/16 23:55 Room Air 09/17/16 22:56 36.7 84 16 120/71 92 Room Air 09/17/16 21:38 68 131/72 09/17/16 16:28 80 09/17/16 16:15 Room Air 09/17/16 15:28 37.2 52 18 127/74 96 Room Air General Appearance: no apparent distress Respiratory/Chest: no respiratory distress Abdomen: soft Laboratory Results: Results Past 24 Hours Test 09/18/16 06:20 Range/Units White Blood Count 7.32 4.8-10.8 K/uL Red Blood Count 4.00 4.7-6.1 M/uL Hemoglobin 12.6 14.0-18.0 g/dL Hematocrit 38.0 42-52 % Mean Corpuscular Volume 95.0 80-100 fL Mean Corpuscular Hemoglobin 31.5 25-34 pg Mean Corpuscular Hemoglobin Concent 33.2 32-36 g/dl RDW Standard Deviation 48.1 36.4-46.3 fL RDW Coefficient of Variation 13.9 11.5-14.5 % Platelet Count 161 130-400 K/uL Mean Platelet Volume 9.6 7.4-10.4 fL Prothrombin Time 14.9 9.0-12.0 SECONDS Prothromb Time International Ratio 1.4 0.9-1.1 Activated Partial Thromboplast Time 34.3 21.0-31.0 SECONDS Partial Thromboplastin Ratio 1.3 Sodium Level 139 136-145 mmol/L Potassium Level 3.6 3.5-5.1 mmol/L Chloride Level 104 98-107 mmol/L Carbon Dioxide Level 28 21-32 mmol/L Anion Gap 7.0 3-11 mmol/L Blood Urea Nitrogen 7 7-18 mg/dl Creatinine 0.83 0.60-1.40 mg/dl Est Creatinine Clear Calc Drug Dose 74.1 ml/min Estimated GFR () 101.2 Estimated GFR (Non- 87.3 BUN/Creatinine Ratio 8.4 10-20 Random Glucose 89 70-99 mg/dl Calcium Level 8.3 8.5-10.1 mg/dl Assessment & Plan 09/18/16- plan for EUA, I/D abscess , possible fistulotomy vs seton placement tomorrow am. GI eval- colonoscopy at some point if none recent. Cont IV flagyl
[2016-09-18] MEDS: CARVEDILOL 3.125 MG TAB PO SCH ×2 (09:38→20:48)
[2016-09-18] MEDS: VANCOMYCIN HCL 125 MG/2.5ML SOLN PO SCH ×4 (09:38→20:46)
[2016-09-18] MEDS: ATORVASTATIN 10 MG TAB PO SCH (09:38)
[2016-09-18] MEDS: SPIRONOLACTONE 25 MG TAB PO SCH ×2 (09:38→16:44)
[2016-09-18] MEDS: RASPBERRY SYRUP 5 ML UDP PO SCH ×4 (09:38→20:45)
--- NOTE | 2016-09-18 14:04 | Anesthesiology Progress Note ---
Anesthesia Progress Note Date of Service September 18, 2016. Progress Notes The patient is a 75 y/o male scheduled for I and D of perirectal abscess tomorrow. PMH includes NE, CAD s/p stent, HTN, CHF, atrial fibrillation on Coumadin, bowel resection with fistula, arthritis, hypothyroidism, and anemia. The patient chews tobacco. He has several medication allergies. He has not had any problems with anesthesia. The patient has limited functional status and uses a walker. No chest pain or SOB at rest. He has a CXR from 07/06 that shows cardiomegaly. His EKG shows rate controlled atrial fibrillation. Labs are significant for hgb 12.6 and INR 1.4. On exam the patient is a MP 3 but is edentulous. Lungs are clear bilaterally. Heart is irregular. Carotids are negative for bruits. He is an ASA 3. The patient is DNR but agreed to temporarily suspend it while in the perioperative period. The patient was consented for general anesthesia. He was counseled to remain NPO after midnight except for sips of water with pills.
--- NOTE | 2016-09-18 14:50 | Family Medicine Progress Note ---
Progress Note Date of Service September 18, 2016. Subjective Pt evaluation today including: conversation w/ patient, physical exam, chart review, lab review Pain: None PO Intake: Good Voiding: no voiding problems Some diarrhea but improving Refused Ciprofloxacin overnight because states that it gave him phlebitis Patient awaiting surgery tomorrow for adelina-anal fistula repair No other active issues at this time The patient is a poor historian and cannot give details on cardiac history or GI history. States that it was all done in [facility]. Constitutional: No chills, No fever, No sweats Eyes: No eye pain, No redness, No worsening of vision ENT: No hearing loss, No nasal symptoms, No sore throat, No tinnitus Respiratory: No cough, No sputum, No wheezing Cardiovascular: No chest pain, No orthopnea, No palpitations Abdomen: + diarrhea, No constipation, No nausea, No pain, No vomiting Musculoskeletal: No joint pain, No muscle pain Male : No dysuria, No incontinence Neurologic: No memory loss, No numbness/tingling, No vertigo, No weakness Heme: No abnormal bleeding/bruising, No clotting problems, No swollen lymph nodes Endo: No excessive thirst, No excessive urination, No fatigue Skin: No color change, No new/changing skin lesions, No rash All Other Systems: Reviewed and Negative Medications Current Inpatient Medications Medications (Trade) Dose Ordered Sig/Baldo Route Start Time Stop Time Status Last Admin Dose Admin Ioversol (Optiray 320) 125 ml UD PRN IV 09/16/16 23:45 09/20/16 23:44 Acetaminophen (Tylenol Tab) 650 mg Q4H PRN PO 09/17/16 02:30 10/17/16 02:29 Ondansetron HCl (Zofran Inj) 4 mg Q6H PRN IV 09/17/16 02:30 10/17/16 02:29 Atorvastatin Calcium (Lipitor Tab) 10 mg DAILY PO 09/17/16 09:00 10/17/16 08:59 09/18/16 09:38 10 MG Carvedilol (Coreg Tab) 3.125 mg BID PO 09/17/16 09:00 10/17/16 08:59 09/18/16 09:38 3.125 MG Digoxin (Lanoxin Tab) 0.125 mg DAILY@1600 PO 09/17/16 16:00 10/17/16 15:59 09/17/16 16:28 0.125 MG Levothyroxine Sodium (Synthroid Tab) 88 mcg DAILYBB PO 09/17/16 07:30 10/17/16 07:29 09/18/16 05:45 88 MCG Spironolactone 25 mg 25 mg BID17 PO 09/17/16 09:00 10/17/16 08:59 09/18/16 09:38 25 MG Sodium Chloride (Nss 1000ml) 1,000 ml @ 75 mls/hr [id number] IV 09/17/16 02:45 10/17/16 02:44 Future Hold 09/17/16 16:28 75 MLS/HR Vancomycin HCl 125 mg 125 mg QID PO 09/17/16 09:00 10/01/16 08:59 09/18/16 12:44 125 MG Metronidazole/Prmx (Flagyl / Nss/ Premixed Nss) 100 ml @ 100 mls/hr Q8H IV 09/17/16 04:00 10/01/16 03:59 09/18/16 11:22 100 MLS/HR Diphenhydramine HCl (Benadryl Inj) 25 mg Q6H PRN IV 09/17/16 06:45 10/17/16 06:44 Raspberry 5 ml 5 ml QID PO 09/17/16 09:00 10/01/16 08:59 09/18/16 12:44 5 ML Ciprofloxacin/ Dextrose/Prmx (Cipro / D5W/ Premixed D5W) 200 ml @ 100 mls/hr Q12@0200,1400 IV 09/17/16 14:30 09/27/16 13:59 09/18/16 02:01 100 MLS/HR Objective Vital Signs Date Time Temp Pulse Resp B/P Pulse Ox O2 Delivery O2 Flow Rate FiO2 09/18/16 07:30 Room Air 09/18/16 07:12 37.0 85 20 117/75 95 Room Air 09/17/16 23:55 Room Air 09/17/16 22:56 36.7 84 16 120/71 92 Room Air 09/17/16 21:38 68 131/72 09/17/16 16:28 80 09/17/16 16:15 Room Air 09/17/16 15:28 37.2 52 18 127/74 96 Room Air Physical Exam General Appearance: WD/WN, no apparent distress Eyes: normal inspection, EOMI ENT: normal ENT inspection, hearing grossly normal, pharynx normal Neck: supple, no adenopathy, no JVD Respiratory/Chest: lungs clear, no respiratory distress Cardiovascular: no gallop, no murmur, + irregularly irregular, + pertinent finding (rate controlled) Abdomen: normal bowel sounds, non tender, soft Extremities: non-tender, no pedal edema Neurologic/Psychiatric: alert, normal mood/affect, oriented x 3 Skin: normal color, warm/dry, no rash Lymphatic: no adenopathy Laboratory Results Last 24 Hours Test 09/18/16 06:20 White Blood Count 7.32 K/uL Red Blood Count 4.00 M/uL Hemoglobin 12.6 g/dL Hematocrit 38.0 % Mean Corpuscular Volume 95.0 fL Mean Corpuscular Hemoglobin 31.5 pg Mean Corpuscular Hemoglobin Concent 33.2 g/dl RDW Standard Deviation 48.1 fL RDW Coefficient of Variation 13.9 % Platelet Count 161 K/uL Mean Platelet Volume 9.6 fL Prothrombin Time 14.9 SECONDS Prothromb Time International Ratio 1.4 Activated Partial Thromboplast Time 34.3 SECONDS Partial Thromboplastin Ratio 1.3 Sodium Level 139 mmol/L Potassium Level 3.6 mmol/L Chloride Level 104 mmol/L Carbon Dioxide Level 28 mmol/L Anion Gap 7.0 mmol/L Blood Urea Nitrogen 7 mg/dl Creatinine 0.83 mg/dl Est Creatinine Clear Calc Drug Dose 74.1 ml/min Estimated GFR () 101.2 Estimated GFR (Non- 87.3 BUN/Creatinine Ratio 8.4 Random Glucose 89 mg/dl Calcium Level 8.3 mg/dl Assessment and Plan This is a 75 yo m with a history of C 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 He is stable at this time, awaits surgical management of fistula tomorrow. Our plan for him is as follows: Perirectal Fistula - Discussed case with Dr. Gonzalez; findings on CT seem more consistent with fistula rather than abscess As such, will de-escalate and Stop Cipro as patient unlikely to have abscess Recommendations appreciated - Noted on CT that there is bowel inflammation from the rectum and distal to that; no mention on EMR of previous GI evaluation; outside evaluation unavailable to us but have been requested - Will consult GI to review CT scan and determine if any additional evaluation needs to be done. Diarrhea with a history of C Diff and antibiotic use - Confirmed Toxin positive on admission - Still having diarrhea but stool more formed - Per LEE, patient categorized as mild moderate severity (Diarrhea without albumin < 3 g/dl); however, patient has recurrence Continue PO Vanc and Flagyl - Patient tolerating diet and normal Cr; discontinue IVF Likely Chronic CHF - Patient is on Digoxin , spironolactone and carvedilol - Most recent echocardiogram done at [facility], records sent but no mention of last EF or echo report - Will attempt to contact PCP - No echo reports in [facility] Hyperlipidemia - continue atorvastatin Atrial fibrillation - Currently rate controlled - Hold warfarin in anticipation for procedure. - Continue Coreg Hypothyroidism - Continue Synthroid DVT Prophylaxis - Surgery planned for later in the week - INR currently 1.4 - SCD today; re-start heparin post-procedure Continued [facility] stay due to: other (awaiting surgery) Discharge planning: home Reviewed: Pt Seen/Exam by Me History no new concerns overnight Constitutional: denies: fever Respiratory: negative: short of breath Cardiovascular: denies chest pain Gastrointestinal/Abdominal: positive: diarrhea, negative: abdominal pain General Appearance: no apparent distress Respiratory: lungs clear, no respiratory distress Cardiovascular: irregularly irregular Gastrointestinal: normal bowel sounds, non tender, soft Neurologic/Psychiatric: alert, oriented x 3 Skin Characteristics: warm/dry Assessment/Plan I have reviewed the medical record and performed a history and physical examination of this patient today. I have discussed the case with Dr. Melton. The above note reflects my findings, conclusions, and recommendations.
[2016-09-18 15:03] VITALS: BP 133/77; PULSE 68; TEMP 36.5; O2SAT 95
[2016-09-18 16:43] VITALS: PULSE 84
[2016-09-18] MEDS: DIGOXIN 0.125 MG TAB PO SCH (16:44)
--- NOTE | 2016-09-18 19:28 | GASTROINTESTINAL CONSULTATION ---
DATE OF CONSULTATION: 09/18/2016 CHIEF COMPLAINT: Recurrent C. diff infection. HISTORY OF PRESENT ILLNESS: Mr. Doe is a 75-year-old white male admitted on a September 16 for a right lower quadrant abdominal pain and recurrent diarrhea that had increased in intensity over the past 24 hours. The patient describes the pain at times as intermittent and he denies melena or bright red blood per rectum, but does have loose stools. The patient was recently found to have C. diff positivity and was treated with IV Flagyl and on home Flagyl and Cipro for this along with a perirectal abscess. These symptoms have been going on for approximately 3-4 weeks according to the patient. The patient has a longstanding history (30 years by his report) of an abscess or fistula opening that drains on the buttocks. This does not drain stool by his recollection and mostly drains either orange or brown colored material. He is not aware of a diagnosis of Crohn's disease. He did have a portion of his colon removed for a polyp in the past and he reports that his last colonoscopy was in [place] 3 years ago around the time that a portion of the bowel was removed. PAST MEDICAL HISTORY: Includes atrial fibrillation, coronary artery disease, hypertension, hypothyroidism, cataract surgery and the colon resection that presumably was for diverticulitis; however, there are comments that this may have been due to a polyp. The patient's history is not clear on this. FAMILY HISTORY: Significant for diabetes, gallbladder disease, renal disease, lung cancer, although the patient cannot recall the type. SOCIAL HISTORY: The patient denies tobacco or alcohol use. He is , lives with his family and is retired. ALLERGIES: INCLUDE MORPHINE, AMOXICILLIN, KEFLEX, AUGMENTIN, PENICILLINS. HOME MEDICATIONS: Include Lipitor, carvedilol, digoxin, levothyroxine, spironolactone, warfarin. REVIEW OF SYSTEMS: Otherwise noncontributory based on 14-point exam except as mentioned above. The patient denies odynophagia, dysphagia, nausea, vomiting, hematemesis or coffee ground emesis. He denies melena or bright red blood per rectum. He does have diarrhea. The patient denies any chest pain or shortness of breath. PHYSICAL EXAMINATION: VITAL SIGNS: His presentation on admission to the ER showed a temperature 36.7, pulse 90, respirations 20, blood pressure 167/90, he was 97% on room air. GENERAL: The patient at the present time, awake, alert and oriented and resting in bed. HEENT: Sclerae are anicteric. Conjunctivae are moist. NECK: There is no cervical or supraclavicular adenopathy. I do not appreciate thyromegaly. HEART: Normal S1, S2. LUNGS: Clear to auscultation. ABDOMEN: Soft, tender, diffusely throughout, although perhaps more on the right side than on the left. There are normal bowel sounds without abdominal bruits. I do not appreciate hepatosplenomegaly. EXTREMITIES: Without clubbing, or cyanosis. There is +1 pitting edema bilaterally. RECTAL: Deferred at this time. LABORATORY VALUES: On admission, white count 11.1, hemoglobin 14.4, platelets are 194,000. INR 1.5, potassium 3.9, BUN and creatinine 11 and 1.0, AST 22, ALT 21, alk phos 66, total protein 8.0, lipase 164. Urinalysis was unrevealing. CT suggested the presence of a perirectal abscess, which is either stable or slightly improved and that is 3.2 x 1.2 cm. There is fistulous tracking to the right gluteal fold with rectosigmoid wall thickening. IMPRESSION AND PLAN: The patient with a history of recurrent C. diff infection with a perirectal abscess requiring antibiotics. The patient reports that they are planning for surgery tomorrow, although I am not sure that this is accurate. The patient has been started on oral vanco and IV Flagyl for C. diff. One point that comes to mind is whether or not, this perirectal abscess is in any way related to the possibility of Crohn's disease. He describes that his symptoms have been present for 30 years regarding the fistulous drainage, although the details of the surgery that he had and the presence of his perirectal abscess are not clear. There may be a component of congestive heart failure given the patient's medications and he is being hydrated cautiously. Antibiotic selection is a challenge given his recurrent C. diff and certainly upon discharge, he may require some course of therapy to help suppress the recurrence of C. diff as well as an ultimate tapering dose once he has completed his regimen of antibiotics for the perirectal abscess. At some point, a colonoscopy would be reasonable; however, this may also be a challenge in order to adequately prep the patient and we will have to coordinate this with the primary team and surgery as well as ID. At the present time, his current medications that include vancomycin q.i.d. and metronidazole IV are reasonable along with his other medications. Presently, he is not on any other antibiotics aimed at abscess therapy. I did review Dr. Gonzalez's note and it appears that there is a plan for an exam under anesthesia with I\T\D of this abscess and possible fistulotomy for seton. I do agree that colonoscopy ultimately would be helpful in order to assess mucosal sources as well as the potential of chronic inflammatory bowel disease. We will follow with you. Thank you for allowing me to participate in this pleasant gentleman's care. It should be noted his white count is 7.3 today with a hemoglobin of 12.6. MTDD
[2016-09-18 20:47] VITALS: BP 102/61; PULSE 76
[2016-09-18 23:37] VITALS: BP 129/73; PULSE 71; TEMP 36.8; O2SAT 96
[2016-09-19] VITALS (10 sets, daily range): BP systolic 108–144; BP diastolic 63–82; PULSE 59–75; TEMP 36.2–36.9; O2SAT 95–99
[2016-09-19] MEDS: METRONIDAZOLE / NSS 500 MG in PREMIXED NSS 100 ML IV SCH ×3 (03:54→20:20)
[2016-09-19] MEDS: LEVOTHYROXINE 88 MCG TAB PO SCH (05:27)
--- NOTE | 2016-09-19 06:49 | Surgery Progress Note ---
Surgery Progress Note Date of Service September 19, 2016. Subjective for OR this am- no acute chgs Objective Vital Signs: Date Time Temp Pulse Resp B/P Pulse Ox O2 Delivery O2 Flow Rate FiO2 09/19/16 00:05 Room Air 09/18/16 23:37 36.8 71 16 129/73 96 Room Air 09/18/16 20:47 76 102/61 09/18/16 16:44 84 09/18/16 16:43 84 09/18/16 15:30 Room Air 09/18/16 15:03 36.5 68 17 133/77 95 Room Air 09/18/16 07:30 Room Air 09/18/16 07:12 37.0 85 20 117/75 95 Room Air Laboratory Results: Results Past 24 Hours Test 09/19/16 04:44 Range/Units Assessment & Plan 09/19/16- For exam under anesthesia this am- possible I/D perirectal abscess- suspect fistula- Doubt cause of pts gradual deconditioning over 3-4 months- 3 hospital admissions 09/18/16- plan for EUA, I/D abscess , possible fistulotomy vs seton placement tomorrow am. GI eval- colonoscopy at some point if none recent. Cont IV flagyl 09/18/16- plan for EUA, I/D abscess , possible fistulotomy vs seton placement tomorrow am. GI eval- colonoscopy at some point if none recent. Cont IV flagyl
[2016-09-19] MEDS: ATORVASTATIN 10 MG TAB PO SCH (07:11)
[2016-09-19] MEDS: CARVEDILOL 3.125 MG TAB PO SCH ×3 (07:11→21:45)
[2016-09-19] MEDS: SPIRONOLACTONE 25 MG TAB PO SCH ×3 (07:11→17:25)
[2016-09-19] MEDS: VANCOMYCIN HCL 125 MG/2.5ML SOLN PO SCH ×4 (07:11→21:44)
[2016-09-19] MEDS: SODIUM CHLORIDE 0.9% 1000ML 1,000 ML IV SCH (07:11)
[2016-09-19] MEDS: RASPBERRY SYRUP 5 ML UDP PO SCH ×4 (07:11→21:45)
[2016-09-19] MEDS ORDERED: FENTANYL CITRATE INJ 50 MCG/1 ML 2 ML VIAL ONE (07:35)
[2016-09-19] MEDS ORDERED: DEXAMETHASONE SOD INJ 4 MG/ML VIAL ONE (07:35)
[2016-09-19] MEDS ORDERED: PROPOFOL IV EMULSION 10 MG/ML 20 ML VIAL IV ONE (07:35)
[2016-09-19] MEDS ORDERED: LIDOCAINE 2% 20 MG/ML 5ML SYR ONE (07:35)
[2016-09-19] MEDS ORDERED: MIDAZOLAM HCL 1 MG/ML 2ML VIAL ONE (07:35)
[2016-09-19] MEDS ORDERED: ONDANSETRON INJ 2 MG/ML 2 ML VIAL ONE (07:35)
[2016-09-19 07:57] LABS: HEMATOCRIT 42.2 % (42-52); MEAN CELL VOLUME 94.2 fL (80-100); MEAN CORPUSCULAR HEMOGLOBIN 30.1 pg (25-34); MEAN PLATELET VOLUME 9.6 fL (7.4-10.4); PLATELET COUNT 184 K/uL (130-400); RED BLOOD COUNT 4.48 M/uL (4.7-6.1); WHITE BLOOD COUNT 6.63 K/uL (4.8-10.8)
[2016-09-19 08:05] LABS: INR 1.2 (0.9-1.1); PARTIAL THROMBOPLASTIN RATIO 1.3; PROTHROMBIN TIME (PATIENT) 13.4 SECONDS (9.0-12.0)
[2016-09-19] MEDS ORDERED: METHYLENE BLUE 0.5% 10 ML VIAL ONE (08:11)
[2016-09-19] MEDS ORDERED: BUPIVACAINE 0.5 % 5 MG/1 ML MPF 30ML VIAL ONE (08:11)
[2016-09-19 08:31] LABS: BUN/CREATININE RATIO 11.9 (10-20); CREATININE 0.95 mg/dl (0.60-1.40); POTASSIUM 3.7 mmol/L (3.5-5.1)
[2016-09-19 08:45] LABS: CALCIUM 9.3 mg/dl (8.5-10.1)
[2016-09-19] MEDS ORDERED: ETOMIDATE 2 MG/ML 20 ML VIAL IV ONE (09:23)
[2016-09-19] MEDS ORDERED: ROCURONIUM BROMIDE 10 MG/ML 5 ML VIAL ONE (09:23)
--- NOTE | 2016-09-19 09:27 | [facility] Post Operative Brief Note ---
Immediate Operative Summary Operative Date September 19, 2016. Pre-Operative Diagnosis Jeanne-Rectal Abcess Post-Operative Diagnosis Jeanne-Rectal Abcess Procedure(s) Performed Exam Under Anesthesia, Incision and Drainage and Culture Perirectal Abscess. Surgeon Dr. Gonzalez Developmental Training Counselor Surgeon(s) Nidia Yanes Estimated Blood Loss 5 ml Findings perirectal cavity- no overt abscess- + phlegmon no fistula culture sent Specimens Culture of Jeanne-rectal Abcess drainage sent for [place] Culture and Senistivity and anaerobic and aerobic culture. Drains kendal Anesthesia gen Complication(s) None Disposition Recovery Room / PACU
--- NOTE | 2016-09-19 10:13 | Anesthesiology Progress Note ---
Anesthesia Post Op Note Date & Time September 19, 2016 at 10:12 Vital Signs Pain Intensity: 0 Vital Signs Past 12 Hours Date Time Temp Pulse Resp B/P Pulse Ox O2 Delivery O2 Flow Rate FiO2 09/19/16 09:55 36.9 52 18 138/71 98 Nasal Cannula 2 09/19/16 09:45 36.9 59 18 141/79 99 Nasal Cannula 2 09/19/16 09:36 58 18 148/66 100 Mask 10 09/19/16 09:26 71 18 170/87 100 Mask 10 09/19/16 09:16 37.0 56 18 170/89 100 Mask 10 09/19/16 08:12 36.9 61 18 138/76 95 Room Air 09/19/16 07:50 96 Room Air 09/19/16 07:46 36.5 68 20 144/79 96 Room Air 09/19/16 07:40 Room Air 09/19/16 00:05 Room Air 09/18/16 23:37 36.8 71 16 129/73 96 Room Air Notes Mental Status: alert / awake / arousable, participated in evaluation Pt Amnestic to Procedure: Yes Nausea / Vomiting: adequately controlled Pain: adequately controlled Airway Patency, RR, SpO2: stable & adequate BP & HR: stable & adequate Hydration State: stable & adequate Anesthetic Complications: no major complications apparent
[2016-09-19] MEDS ORDERED: ATROPINE SULFATE 0.1 MG/ML 5ML SYR IV PRN (10:15)
[2016-09-19] MEDS ORDERED: EpHEDrine SULFATE INJ 50 MG/ML AMP IV PRN (10:15)
--- NOTE | 2016-09-19 10:22 | OPERATIVE REPORT ---
DATE OF OPERATION: 09/19/2016 NAME OF OPERATION: Examination under anesthesia with incision and drainage of perirectal abscess and culture. PREOPERATIVE DIAGNOSIS: Perirectal abscess, possible fistula. POSTOPERATIVE DIAGNOSIS: Perirectal phlegmon. STAFF SURGEON: Dr. Gonzalez. ANESTHESIA: General. PROCEDURE: The patient was brought in the operating room and placed on the operating table in supine position, then placed into the lithotomy position with the shark fins. Examination after appropriate prepping and draping of the perianal area showed no evidence of internal anorectal induration. There was an area of scar tissue to the right at approximately 7-8 o'clock, which was previously a drain site, this was probed and gently opened and I was able to find what I felt was a phlegmonous cavity with no significant purulent drainage using the hemostat. I did use some peroxide and methylene blue and it showed no evidence of any fistula. At this point, I placed a Lui drain into the cavity after culturing the site and then secured the surrounding tissue using 4-0 nylon suture. Sterile dressing was applied and the patient transferred to recovery room in stable condition. As a note, the findings were essentially a phlegmonous cavity with no overt abscess fluid cavity and no evidence of fistula. I attest to the content of the Intraoperative Record and any orders documented therein. Any exceptio ns are noted below.
--- NOTE | 2016-09-19 14:18 | Family Medicine Progress Note ---
Progress Note Date of Service September 19, 2016. Subjective Pt evaluation today including: conversation w/ patient, physical exam, chart review, lab review Pain: None Voiding: no voiding problems, no incontinence Seen post-operatively Doing well No issues currently Family notes some generalized decline at home with some difficulty being cared for by family Male : + incontinence Additional Comments: A 10 point review of systems was negative unless stated above. Medications Current Inpatient Medications Medications (Trade) Dose Ordered Sig/Baldo Route Start Time Stop Time Status Last Admin Dose Admin Ioversol (Optiray 320) 125 ml UD PRN IV 09/16/16 23:45 09/20/16 23:44 Acetaminophen (Tylenol Tab) 650 mg Q4H PRN PO 09/17/16 02:30 10/17/16 02:29 Ondansetron HCl (Zofran Inj) 4 mg Q6H PRN IV 09/17/16 02:30 10/17/16 02:29 Atorvastatin Calcium (Lipitor Tab) 10 mg DAILY PO 09/17/16 09:00 10/17/16 08:59 09/18/16 09:38 10 MG Carvedilol (Coreg Tab) 3.125 mg BID PO 09/17/16 09:00 10/17/16 08:59 09/19/16 10:29 3.125 MG Digoxin (Lanoxin Tab) 0.125 mg DAILY@1600 PO 09/17/16 16:00 10/17/16 15:59 09/18/16 16:44 0.125 MG Levothyroxine Sodium (Synthroid Tab) 88 mcg DAILYBB PO 09/17/16 07:30 10/17/16 07:29 09/18/16 05:45 88 MCG Spironolactone 25 mg 25 mg BID17 PO 09/17/16 09:00 10/17/16 08:59 09/19/16 10:29 25 MG Sodium Chloride (Nss 1000ml) 1,000 ml @ 75 mls/hr [id number] IV 09/17/16 02:45 10/17/16 02:44 Future hold 09/19/16 07:11 75 MLS/HR Vancomycin HCl 125 mg 125 mg QID PO 09/17/16 09:00 10/01/16 08:59 09/19/16 11:53 125 MG Metronidazole/Prmx (Flagyl / Nss/ Premixed Nss) 100 ml @ 100 mls/hr Q8H IV 09/17/16 04:00 10/01/16 03:59 09/19/16 11:53 100 MLS/HR Diphenhydramine HCl (Benadryl Inj) 25 mg Q6H PRN IV 09/17/16 06:45 10/17/16 06:44 Raspberry (Raspberry Syrup 5ml Cup) 5 ml QID PO 09/17/16 09:00 10/01/16 08:59 09/19/16 11:53 5 ML Ephedrine Sulfate (EpHEDrine SULFATE INJ) 5 mg Q5M PRN IV 09/19/16 10:15 09/19/16 15:15 Atropine Sulfate (Atropine Sulfate 0.1MG/Ml Inj) 0.5 mg Q1M PRN IV 09/19/16 10:15 09/19/16 15:15 Objective Vital Signs Date Time Temp Pulse Resp B/P Pulse Ox O2 Delivery O2 Flow Rate FiO2 09/19/16 13:15 36.8 73 20 127/80 96 Room Air 09/19/16 12:23 36.2 65 20 108/65 97 Room Air 09/19/16 11:20 59 18 118/63 98 Nasal Cannula 3.0 09/19/16 10:57 36.9 66 20 123/75 95 Nasal Cannula 3.0 09/19/16 10:20 99 Nasal Cannula 2.0 09/19/16 10:20 36.5 63 16 142/77 99 Nasal Cannula 2.0 09/19/16 09:55 36.9 52 18 138/71 98 Nasal Cannula 2 09/19/16 09:45 36.9 59 18 141/79 99 Nasal Cannula 2 09/19/16 09:36 58 18 148/66 100 Mask 10 09/19/16 09:26 71 18 170/87 100 Mask 10 09/19/16 09:16 37.0 56 18 170/89 100 Mask 10 09/19/16 08:12 36.9 61 18 138/76 95 Room Air 09/19/16 07:50 96 Room Air 09/19/16 07:46 36.5 68 20 144/79 96 Room Air 09/19/16 07:40 Room Air 09/19/16 00:05 Room Air 09/18/16 23:37 36.8 71 16 129/73 96 Room Air 09/18/16 20:47 76 102/61 09/18/16 16:44 84 09/18/16 16:43 84 09/18/16 15:30 Room Air 09/18/16 15:03 36.5 68 17 133/77 95 Room Air Physical Exam General Appearance: WD/WN, no apparent distress, + thin Eyes: normal inspection, EOMI ENT: hearing grossly normal, pharynx normal Neck: supple, no adenopathy, no JVD Respiratory/Chest: lungs clear, no respiratory distress Cardiovascular: no gallop, no murmur, + irregularly irregular (rate controlled) Abdomen: normal bowel sounds, non tender, soft Extremities: non-tender, no pedal edema Neurologic/Psychiatric: alert, normal mood/affect, oriented x 3 Skin: normal color, warm/dry, no rash Lymphatic: no adenopathy Laboratory Results Last 24 Hours Test 09/19/16 07:30 White Blood Count 6.63 K/uL Red Blood Count 4.48 M/uL Hemoglobin 13.5 g/dL Hematocrit 42.2 % Mean Corpuscular Volume 94.2 fL Mean Corpuscular Hemoglobin 30.1 pg Mean Corpuscular Hemoglobin Concent 32.0 g/dl RDW Standard Deviation 47.2 fL RDW Coefficient of Variation 13.7 % Platelet Count 184 K/uL Mean Platelet Volume 9.6 fL Prothrombin Time 13.4 SECONDS Prothromb Time International Ratio 1.2 Activated Partial Thromboplast Time 33.8 SECONDS Partial Thromboplastin Ratio 1.3 Sodium Level 139 mmol/L Potassium Level 3.7 mmol/L Chloride Level 103 mmol/L Carbon Dioxide Level 26 mmol/L Anion Gap 10.0 mmol/L Blood Urea Nitrogen 11 mg/dl Creatinine 0.95 mg/dl Est Creatinine Clear Calc Drug Dose 64.8 ml/min Estimated GFR () 91.7 Estimated GFR (Non- 79.1 BUN/Creatinine Ratio 11.9 Random Glucose 93 mg/dl Calcium Level 9.3 mg/dl Assessment and Plan This is a 75 yo m with a history of C 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 He is stable at this time, awaits surgical management of fistula tomorrow. Our plan for him is as follows: Perirectal Fistula/Abscess - Evaluated under sedation this morning by Dr. Gonzalez. No sign of abscess noted. Will require outpatient follow-up Further recommendations appreciated - Appreciate GI recommendations regarding rectal inflammation on CT Need for possible colonoscopy; will discuss with GI whether this needs to be done on this admission vs as an outpatient Diarrhea with a history of C Diff and antibiotic use - Confirmed Toxin positive on admission - Diarrhea improving - Continue PO Vanc and Flagyl - Patient tolerating diet and Cr normalized Likely Chronic CHF - Patient is on Digoxin , spironolactone and carvedilol - Most recent echocardiogram done at [place], records sent but no mention of last EF or echo report - Discontinue IVF at this point to avoid fluid overload; patient is clinically euvolemic Hyperlipidemia - continue atorvastatin Atrial fibrillation - Currently rate controlled on Coreg and Digoxin - Resume in discussion with surgery tomorrow or defer if there is plan for further intervention (ie colonoscopy) Will re-start low-dose s.c heparin tonight Hypothyroidism - Continue Synthroid DVT Prophylaxis - Surgery planned for later in the week - Start Heparin 5000 s.c TID tonight Disposition - Med/Surg - OT and PT evaluate and treat anticipate d/c in am Reviewed: Pt Seen/Exam by Me History diarrhea improving no abdominal pain Constitutional: denies: fever Respiratory: negative: short of breath Gastrointestinal/Abdominal: negative: abdominal pain General Appearance: no apparent distress Respiratory: lungs clear, no respiratory distress Cardiovascular: regular rate, rhythm Gastrointestinal: normal bowel sounds, non tender, soft Neurologic/Psychiatric: alert, oriented x 3 Assessment/Plan I have reviewed the medical record and performed a history and physical examination of this patient today. I have discussed the case with Dr. Melton. The above note reflects my findings, conclusions, and recommendations.
[2016-09-19] MEDS: DIGOXIN 0.125 MG TAB PO SCH (16:09)
[2016-09-19] MEDS: HEPARIN SOD 5000 UNIT/0.5 ML CARP SQ SCH (21:43)
[2016-09-20 03:34] VITALS: BP 147/82; PULSE 75; TEMP 36.5; O2SAT 95
[2016-09-20] MEDS: METRONIDAZOLE / NSS 500 MG in PREMIXED NSS 100 ML IV SCH ×2 (04:25→12:58)
[2016-09-20] MEDS: LEVOTHYROXINE 88 MCG TAB PO SCH (05:41)
[2016-09-20] MEDS: HEPARIN SOD 5000 UNIT/0.5 ML CARP SQ SCH (05:43)
--- NOTE | 2016-09-20 06:14 | Surgery Progress Note ---
Surgery Progress Note Date of Service Sep 20, 2016. Subjective + feeling well min pain wants to go home Objective Vital Signs: Date Time Temp Pulse Resp B/P (MAP) Pulse Ox O2 Delivery O2 Flow Rate FiO2 09/20/16 03:34 36.5 75 16 147/82 (103) 95 Room Air 09/20/16 00:22 Room Air 09/19/16 23:17 16 131/82 (98) 97 Room Air 09/19/16 19:58 36.3 75 17 119/81 (94) 97 Room Air 09/19/16 16:09 63 09/19/16 15:34 36.4 63 16 118/72 (87) 96 Room Air 09/19/16 13:15 36.8 73 20 127/80 (96) 96 Room Air 09/19/16 12:23 36.2 65 20 108/65 (79) 97 Room Air 09/19/16 11:20 59 18 118/63 (81) 98 Nasal Cannula 3.0 09/19/16 10:57 36.9 66 20 123/75 (91) 95 Nasal Cannula 3.0 09/19/16 10:20 99 Nasal Cannula 2.0 09/19/16 10:20 36.5 63 16 142/77 (98) 99 Nasal Cannula 2.0 09/19/16 09:55 36.9 52 18 138/71 98 Nasal Cannula 2 09/19/16 09:45 36.9 59 18 141/79 99 Nasal Cannula 2 09/19/16 09:36 58 18 148/66 100 Mask 10 09/19/16 09:26 71 18 170/87 100 Mask 10 09/19/16 09:16 37.0 56 18 170/89 100 Mask 10 09/19/16 08:12 36.9 61 18 138/76 95 Room Air 09/19/16 07:50 96 Room Air 09/19/16 07:46 36.5 68 20 144/79 (100) 96 Room Air 09/19/16 07:40 Room Air General Appearance: no apparent distress Respiratory/Chest: no respiratory distress Incision(s): drainage (has kendal in perirectal area) Laboratory Results: Results Past 24 Hours Test 09/19/16 07:30 09/20/16 04:44 Range/Units White Blood Count 6.63 4.8-10.8 K/uL Red Blood Count 4.48 4.7-6.1 M/uL Hemoglobin 13.5 14.0-18.0 g/dL Hematocrit 42.2 42-52 % Mean Corpuscular Volume 94.2 80-100 fL Mean Corpuscular Hemoglobin 30.1 25-34 pg Mean Corpuscular Hemoglobin Concent 32.0 32-36 g/dl RDW Standard Deviation 47.2 36.4-46.3 fL RDW Coefficient of Variation 13.7 11.5-14.5 % Platelet Count 184 130-400 K/uL Mean Platelet Volume 9.6 7.4-10.4 fL Prothrombin Time 13.4 9.0-12.0 SECONDS Prothromb Time International Ratio 1.2 0.9-1.1 Activated Partial Thromboplast Time 33.8 21.0-31.0 SECONDS Partial Thromboplastin Ratio 1.3 Sodium Level 139 136-145 mmol/L Potassium Level 3.7 3.5-5.1 mmol/L Chloride Level 103 98-107 mmol/L Carbon Dioxide Level 26 21-32 mmol/L Anion Gap 10.0 3-11 mmol/L Blood Urea Nitrogen 11 7-18 mg/dl Creatinine 0.95 0.60-1.40 mg/dl Est Creatinine Clear Calc Drug Dose 64.8 ml/min Estimated GFR () 91.7 Estimated GFR (Non- 79.1 BUN/Creatinine Ratio 11.9 10-20 Random Glucose 93 70-99 mg/dl Calcium Level 9.3 8.5-10.1 mg/dl Microbiology Results 09/19/16 Gram Stain - Final, Resulted 09/19/16 Bacterial Culture, Resulted Pending Assessment & Plan 09/20/16-s/p incision/drainage of phlegmonous cavity in Rt perirectal area - leave drain, see in office next week - cont Flagyl for 10 days - d/c home per med team- ok from my standpoint surgical instructions in EMR 09/19/16- For exam under anesthesia this am- possible I/D perirectal abscess- suspect fistula- Doubt cause of pts gradual deconditioning over 3-4 months- 3 hospital admissions 09/18/16- plan for EUA, I/D abscess , possible fistulotomy vs seton placement tomorrow am. GI eval- colonoscopy at some point if none recent. Cont IV flagyl 09/19/16- For exam under anesthesia this am- possible I/D perirectal abscess- suspect fistula- Doubt cause of pts gradual deconditioning over 3-4 months- 3 hospital admissions 09/18/16- plan for EUA, I/D abscess , possible fistulotomy vs seton placement tomorrow am. GI eval- colonoscopy at some point if none recent. Cont IV flagyl
--- NOTE | 2016-09-20 06:17 | Discharge Instructions ---
Discharge Instructions Date of Service Sep 20, 2016. Admission Reason for Admission: Hx Of Clostridium Difficile Infec, Perirectal Abs Discharge Discharge Diagnosis / Problem: perirectal infection Discharge Goals Goal(s): Decrease discomfort, Improve function, Improve disease control Activity Recommendations Activity Limitations: as noted below Lifting Limitations: gradually increase as tolerated Exercise/Sports Limitations: gradually increase as tolerated Shower/Bathe: no limitations SPECIAL CARE INSTRUCTIONS: * Cover incisions and change daily for comfort/drainage. you will have drainage and need a pad for 1-2 weeks * May use ibuprofen for pain as tolerated. * Expect some swelling and bruising. Call your doctor if: * Temperature above 101 degrees * Pain not relieved by pain medicine ordered * There is increased drainage or redness from any incision * You have any unanswered questions or concerns [phone]. FOLLOW UP VISIT: If not already scheduled, please call the office for a follow-up visit. for next week- or Sat- please call OFFICE PHONE NUMBER: Dr. Gonzalez Office . Current Hospital Diet Patient's current hospital diet: Low Fiber Diet Discharge Diet Recommended Diet: Regular Diet Procedures Procedures Performed: Exam Under Anesthesia, Incision and Drainage and Culture Perirectal Abscess. Pending Studies Studies pending at discharge: no Medical Emergencies . Who to Call and When: Medical Emergencies: If at any time you feel your situation is an emergency, please call 911 immediately. . Non-Emergent Contact Non-Emergency issues call your: Primary Care Provider, Surgeon . "Provider Documentation" section prepared by Marcellus Gonzalez. . VTE Core Measure Inpt VTE Proph given/why not?: SCD's
[2016-09-20 06:40] LABS: BASO % 0.1 %; BASO ABS # 0.01 K/uL (0-0.2); COMPLETE YES; HEMATOCRIT 39.8 % (42-52); IG% 0.1 %; LYMPH % 10.7 %; MEAN CELL VOLUME 94.1 fL (80-100); MEAN CORPUSCULAR HEMOGLOBIN 31.4 pg (25-34); MEAN CORPUSCULAR HGB CONC 33.4 g/dl (32-36); MONO % 5.3 %; NEUT % 83.8 %; PLATELET COUNT 209 K/uL (130-400); RED BLOOD COUNT 4.23 M/uL (4.7-6.1); WHITE BLOOD COUNT 9.31 K/uL (4.8-10.8)
[2016-09-20 07:25] LABS: BUN/CREATININE RATIO 17.5 (10-20); CALCIUM 8.9 mg/dl (8.5-10.1); CREATININE 0.95 mg/dl (0.60-1.40)
[2016-09-20 07:44] VITALS: O2SAT 96
[2016-09-20 07:47] VITALS: BP 130/87; PULSE 59; TEMP 36.5; O2SAT 96
[2016-09-20] MEDS: SPIRONOLACTONE 25 MG TAB PO SCH (09:02)
[2016-09-20 09:03] VITALS: BP 140/57; PULSE 75
[2016-09-20] MEDS: ATORVASTATIN 10 MG TAB PO SCH (09:04)
[2016-09-20] MEDS: CARVEDILOL 3.125 MG TAB PO SCH (09:04)
[2016-09-20] MEDS: RASPBERRY SYRUP 5 ML UDP PO SCH ×2 (09:05→13:01)
[2016-09-20] MEDS: VANCOMYCIN HCL 125 MG/2.5ML SOLN PO SCH ×2 (09:08→13:04)
[2016-09-20 09:18] VITALS: PULSE 70
[2016-09-20] MEDS ORDERED: VANC5CAP PO (10:37)
--- NOTE | 2016-09-20 10:49 | Discharge Instructions ---
Discharge Instructions Date of Service Sep 20, 2016. Admission Reason for Admission: Hx Of Clostridium Difficile Infec, Perirectal Abs Discharge Discharge Diagnosis / Problem: C.diff colitis, adelina-anal fistula/abscess Discharge Goals Goal(s): Decrease discomfort, Diagnostic testing Activity Recommendations Activity Limitations: per Instructions/Follow-up section Lifting Limitations: gradually increase as tolerated Exercise/Sports Limitations: gradually increase as tolerated Shower/Bathe: no limitations . Instructions / Follow-Up Instructions / Follow-Up You presented to the ED with diarrhea. You were recently diagnosed with C diff and we re-tested you and noted that it was positive. You also had a adelina-anal abscess and fistula that we consulted surgery for, for further recommendations. You were taken to the OR and had a drain placed. Please refer to their instructions on post-operative care. You need to call their office and make a follow-up for [address] Marcellus Gonzalez. Adelina-anal disease can be associated with inflammatory bowel disease but you could not tell us whether this has ever been diagnosed before. After reviewing your CT, there did appear to be inflammation of the bowel, so we consulted our gastroenterology service. They recommend you be seen in their office in 2 weeks for re-evaluation. They will decide at that point whether you need to have a colonoscopy for further evaluation. Regarding your C.diff infection, we started you on antibiotics. At this point we will discharge you home with an antibiotic called Vancomycin. You have already had 4 days of antibiotics here in the hospital and we will continue this antibiotic for an additional 10 days, giving you a total 14 day course. Regarding precautions you need to take, you need to ensure strict hand hygiene in both yourself everyone that lives in the house with you. We will give you a prescription for a separate bedside commode. In the future, we will need to re- test you to ensure that you have cleared in infection. As you go home, gradually resume your diet as tolerated. Make sure that you drink fluid to prevent dehydration. We will help coordinate your follow-ups in the coming weeks. As you go home, you can re-start your Coumadin for stroke prevention due to your atrial fibrillation. You will need to coordinate with your primary care provider to have your INR levels checks as you go home. We have made no other changes to your medications. If your symptoms fail to improve, acutely worsen, please seek medical attention immediately by either calling your primary care provider or going to your nearest emergency department. Otherwise, please see your primary care provider in 3-5 days to ensure that your symptoms continue to improve. Current Hospital Diet Patient's current hospital diet: Low Fiber Diet Discharge Diet Recommended Diet: Regular Diet, AHA Diet (Heart Healthy) Procedures Procedures Performed: Exam Under Anesthesia, Incision and Drainage and Culture Perirectal Abscess. Pending Studies Studies pending at discharge: no Medical Emergencies . Who to Call and When: Medical Emergencies: If at any time you feel your situation is an emergency, please call 911 immediately. . Non-Emergent Contact Non-Emergency issues call your: Primary Care Provider Call Non-Emergent contact if: you have a fever, your pain is not controlled, wound has increased drainage, wound has increased redness, wound has increased pain . . "Provider Documentation" section prepared by Bjorn Melton. . VTE Core Measure Inpt VTE Proph given/why not?: SCD's
[2016-09-20 13:43] VITALS: BP 140/57; PULSE 70; TEMP 36.5; O2SAT 96
--- NOTE | 2016-09-20 18:15 | Discharge Summary ---
Discharge Summary Date of Service Sep 20, 2016. (Bjorn Melton MD) Discharge Summary Admission Date: September 17, 2016 at 02:32 Discharge Date: Sep 20, 2016 Discharge Disposition: Home Principal Diagnosis: Recurrent C.diff Colitis, Perirectal abscess Procedures: Jeanne-rectal examination under anesthesia 09/19/2016 DATE OF OPERATION: 09/19/2016 NAME OF OPERATION: Examination under anesthesia with incision and drainage of perirectal abscess and culture. PREOPERATIVE DIAGNOSIS: Perirectal abscess, possible fistula. POSTOPERATIVE DIAGNOSIS: Perirectal phlegmon. STAFF SURGEON: Dr. Gonzalez. ANESTHESIA: General. PROCEDURE: The patient was brought in the operating room and placed on the operating table in supine position, then placed into the lithotomy position with the shark fins. Examination after appropriate prepping and draping of the perianal area showed no evidence of internal anorectal induration. There was an area of scar tissue to the right at approximately 7-8 o'clock, which was previously a drain site, this was probed and gently opened and I was able to find what I felt was a phlegmonous cavity with no significant purulent drainage using the hemostat. I did use some peroxide and methylene blue and it showed no evidence of any fistula. At this point, I placed a Lui drain into the cavity after culturing the site and then secured the surrounding tissue using 4-0 nylon suture. Sterile dressing was applied and the patient transferred to recovery room in stable condition. As a note, the findings were essentially a phlegmonous cavity with no overt abscess fluid cavity and no evidence of fistula. Consultations: ABDOMEN AND PELVIS CT WITH IV AND ORAL CONTRAST CT DOSE: 606.23 mGy.cm HISTORY: Right-sided abdominal pain. TECHNIQUE: Multiaxial CT images of the abdomen and pelvis were performed following the use of intravenous and oral contrast. COMPARISON STUDY: Abdomen and pelvis CT 08/17/2016. FINDINGS: There is mild rectal wall thickening which has improved. The right-sided/posterior perirectal abscess is again noted and is stable to slightly improved compared the prior study. This measures 3.2 x 1.2 cm. There is persistent small fistula tract extending to the right gluteal 4. Bladder is mildly distended. Mild subsegmental atelectasis seen within the right lung base. Severe osteoarthritis within the left hip. The liver, spleen, gallbladder, pancreas, and adrenal glands are unremarkable. The kidneys enhance normally. No hydronephrosis. Trace perisplenic fluid. Normal appendix. No evidence for bowel obstruction. IMPRESSION: 1. Stable to slightly improved right-sided/posterior perirectal abscess. There is again noted a fistula which extends to the right gluteal fold. 2. Mild rectal wall thickening has slightly improved. Electronically signed by: Rudy Cheatham M.D. 09/17/2016 7:52 AM Dictated Date/Time: 09/17/2016 7:48 AM (Bjorn Melton MD) Medication Reconciliation New Medications: Vancomycin Hcl (Vancomycin) 125 Mg Cap 125 MG PO QID for 10 Days, #40 CAP Continued Medications: Atorvastatin (Lipitor) 10 Mg Tab 10 MG PO DAILY, TAB Carvedilol (Coreg) 3.125 Mg Tab 3.125 MG PO BID, TAB Digoxin (Digoxin) 0.125 Mg Tab 0.125 MG PO QPM Docusate Sodium (Docusate Sodium) 100 Mg Cap 100 MG PO BID PRN for CONSTIPATION for 30 Days, #60 CAP Levothyroxine Sodium (Levothyroxine Sodium) 88 Mcg Tab 1 TAB PO DAILY for 30 Days, #30 TAB 5 Refills Potassium Chloride (Klor-Con Ext Rel) 8 Meq Tabcr 8 MEQ PO BID, CAP Spironolactone (Spironolactone) 25 Mg Tab 25 MG PO BID Warfarin Sod (Jantoven) 2 Mg Tab 2 MG PO Q2D, TAB STARTS ON SATURDAY WITH 4MG THEN ALTERNATES DOSES Warfarin Sod (Jantoven) 4 Mg Tab 4 MG PO Q2D, TAB STARTS ON WITH 4MG THEN ALTERNATES DOSES Discharge Exam review of systems was otherwise negative unless stated in the hospital course. Physical Exam: General Appearance: WD/WN, no apparent distress, + thin Eyes: normal inspection, EOMI ENT: hearing grossly normal, pharynx normal Neck: supple, no adenopathy, no JVD Respiratory/Chest: lungs clear, no respiratory distress Cardiovascular: no gallop, no murmur, + irregularly irregular (rate controlled afib) Abdomen / GI: normal bowel sounds, non tender, soft Extremities: no calf tenderness, no pedal edema Neurologic/Psychiatric: alert, normal mood/affect Skin: normal color, warm/dry, no rash (Bjorn Melton MD) Review of Systems: Constitutional: No fever Respiratory: No shortness of breath Cardiovascular: No chest pain Abdomen: No pain, No diarrhea Physical Exam: General Appearance: no apparent distress Respiratory/Chest: lungs clear, no respiratory distress Cardiovascular: regular rate, rhythm Abdomen / GI: normal bowel sounds, non tender, soft Neurologic/Psychiatric: alert, oriented x 3 Skin: warm/dry (Antionette Franklin M.D.) Hospital Course This is a 75 yo m with 1 day history of abdominal discomfort with diarrhea. Patient was known to have been recently admitted on 08/17 with positive C.diff toxin testing positive, for which he was discharged on treatment. A repeat test on this admission also confirmed he was positive at this time. Given that it is unclear if he was completely treated or not, he was treated as a recurrent C.diff infection. His admission on 08/17 was also for management of jeanne-rectal abscess. He was treated non-surgically and was lost to follow-up and as such surgical evaluation as sought during this admission. He was admitted for treatment of recurrent C. diff as well as surgical management of his perianal abscess. His course was as follows. Perirectal Fistula/Abscess - Evaluated under sedation on 09/19/2016; cultures obtained; cultures obtained and pending - Patient discharged with Pemrose drain in place - Patient see Dr. Gonzalez in 1 week to re-examination of the surgical site and drain removal. Rectal Inflammation on CT - Noted on CT during this admission; patient is a very poor historian and could not give details on whether he has had findings of IBD on colonoscopy in the past - Previous CT obtained from [place] which did not mention evidence of bowel inflammation - GI consulted; recommend possible colonoscopy in the near future - Dr. Kowalski will see patient 2 weeks after discharge to discuss possible colonoscopy Diarrhea with a history of C Diff and antibiotic use - Confirmed Toxin positive on admission - Diarrhea improving - Treated with Vanc and Flagyl during admission - Discharged with 10 days of Vancomycin 125 mg QID Chronic diastolic CHF - Patient is on Digoxin , spironolactone and carvedilol - Most recent echocardiogram done at [place], EF noted to be 68% in 2013 - No changes to cardiac medications Hyperlipidemia - continued atorvastatin Atrial fibrillation - Remained rate controlled on Coreg and Digoxin - Warfarin re-started at discharged - Patient to re-check INR 1 day after discharge and results to be forwarded to PCP for Coumadin titration Hypothyroidism - Continued Synthroid Disposition - It was felt that the patient might benefit from home nursing in the short interim due to some degree of deconditioning. However, patient refused and was discharged home to the care of his son and daughter-in law. Total Time Spent: Greater than 30 minutes This includes examination of the patient, discharge planning, medication reconciliation, and communication with other providers. (Bjorn Melton MD) I have reviewed the medical record and performed a history and physical examination of this patient today. I have discussed the case with Dr. Melton. The above note reflects my findings, conclusions, and recommendations. Total Time Spent: Greater than 30 minutes (35) (Antionette Franklin M.D.) Discharge Instructions Please refer to the electronic Patient Visit Report (Discharge Instructions) for additional information. (Bjorn Melton MD) Additional Copies To Isaac Still MD; Marcellus Gonzalez M.D.; Mendoza Kowalski M.D.
[2016-10-12] MEDS ORDERED: MTR500 PO (18:15)
[2016-10-12] MEDS ORDERED: VNCS125 PO (18:15)
[2016-10-12] MEDS ORDERED: AZTR1INJ5 IV (18:15)
== END 2016-09-20 15:00 | disposition home or self-care (01) | DRG 345 ==
LOC: ENRESERVDT → ENRESERVTM → C.EDB 21:32 → C.MSW 09-17 02:32 → EDBEDREQ 09-17 02:35
PROVIDERS: ADMIT Internal Medicine; ATTEND Family Medicine
PROC: 0D9P0ZZ Drainage of Rectum, Open Approach (ICD-10-PCS; principal; 2016-09-19 08:00)
DX: K61.1 Rectal abscess (principal); I50.32 Chronic diastolic (congestive) heart failure; I11.0 Hypertensive heart disease with heart failure; I48.91 Unspecified atrial fibrillation; R19.7 Diarrhea, unspecified; I25.10 Atherosclerotic heart disease of native coronary artery without angina pectoris; E03.9 Hypothyroidism, unspecified; I25.2 Old myocardial infarction; E78.5 Hyperlipidemia, unspecified; Z79.01 Long term (current) use of anticoagulants; Z79.899 Other long term (current) drug therapy; Z66 Do not resuscitate

== ENCOUNTER 2016-10-07 22:52 | Inpatient (IN) | payer OTHER ==
[~2016-10-07] VITALS: Ht 170.2 cm; Wt 73.4 kg
[~2016-10-07 22:52] MED LIST changes: -CPR500 PO; +VANC5CAP PO
--- NOTE | 2016-10-07 23:26 | EMERGENCY ROOM VISIT NOTE ---
History Report prepared by Esther: Jaret Li Under the Supervision of: Dr. Gustabo Pascal M.D. First contact with patient: 23:03 Chief Complaint: GI ASSESSMENT Stated Complaint: BOWEL ISSUES, PUSS DRAINAGE Nursing Triage Summary: pt c/o abd pain. Pt denies diarrhea, but reports no control, "I have to hurry and get to the bathroom. I get all clamped up." Pt aslo reports fatigue. Denies n/v. Ongoing for 8 weeks. Placed on abx for C Diff. Pt reports he was to have a colonoscopy, but hasn't had one scheduled yet History of Present Illness The patient is a 75 year old male who presents to the Emergency Room with complaints of worsening abdominal pain for the past eight weeks and trouble having bowel movements. The patient states that he has been here multiple times recently for the same problems, and he was given antibiotics, and he states that he was given antibiotics for C Diff., and he states that when he stops taking them the symptoms worsen. The patient additionally states that he has some back pain and some pus around his rectum which was recently drained. The patient denies any urinary symptoms, vomiting, fever, hematochezia, or recent fall. He states that he has been eating well, and he has a surgical history of some of his colon being taken out 10-12 years ago. Source of History: patient Onset: eight weeks ago Position: abdomen, other (global) Quality: other (difficulty with bowel movements) Timing: worsening Associated Symptoms: + abdominal pain, + back pain, No fevers, No vomiting, No hematochezia, No urinary symptoms Review of Systems See HPI for pertinent positives & negatives. A total of 10 systems reviewed and were otherwise negative. Past Medical & Surgical Medical Problems: (1) Acute kidney injury (2) Atrial fibrillation (3) CAD (coronary artery disease) (4) Chronic venous stasis dermatitis of both lower extremities (5) Conjunctivitis, right eye (6) History of Clostridium difficile infection (7) HTN (hypertension) (8) Hypothyroidism (9) Perianal fistula Surgical Problems: (1) History of cataract surgery (2) History of colon resection Family History Cancer Diabetes mellitus Gallbladder disease Heart disease Kidney disease Kidney stones Lung disease Social History Smoking Status: Never Smoker Drug Use: none Marital Status: Housing Status: lives with family Occupation Status: retired Current/Historical Medications Scheduled Atorvastatin (Lipitor), 10 MG PO DAILY Carvedilol (Coreg), 3.125 MG PO AMHS Digoxin (Digoxin), 0.125 MG PO QPM Levothyroxine Sodium (Levothyroxine Sodium), 88 MCG PO DAILY Potassium Chloride (Klor-Con Ext Rel), 8 MEQ PO AMHS Spironolactone (Spironolactone), 25 MG PO AMHS Warfarin Sod (Jantoven), 2 MG PO Q2D Warfarin Sod (Jantoven), 4 MG PO Q2D Allergies Coded Allergies: Ciprofloxacin (Verified Allergy, Mild, RASH, 10/08/16) Patient becomes itchy/arm becomes reddened Morphine (Verified Allergy, Mild, RASH, 10/08/16) Amoxicillin (Verified Allergy, Unknown, ., 10/08/16) Cephalexin (Verified Allergy, Unknown, ., 10/08/16) Clavulanic Acid (Verified Allergy, Unknown, ., 10/08/16) Penicillins (Verified Allergy, Unknown, ., 10/08/16) Physical Exam Vital Signs Date Time Temp Pulse Resp B/P (MAP) Pulse Ox O2 Delivery O2 Flow Rate FiO2 10/08/16 01:37 76 18 101/75 96 Room Air 10/07/16 22:57 36.7 96 20 151/83 94 Room Air Physical Exam GENERAL: Patient is mildly uncomfortable, unkempt, and in mild distress. HEENT: No acute trauma, normocephalic atraumatic, mucous membranes moist, no nasal congestion, no scleral icterus. NECK: No stridor, no adenopathy, no meningismus, trachea is midline. LUNGS: No dyspnea. Clear to auscultation and equal bilaterally. No wheeze, no rhonchi. HEART: Regular rate and rhythm. No murmurs, rubs, gallops appreciated. ABDOMEN: Vague suprapubic tenderness. Soft, bowel sounds positive, no masses appreciated, no peritonitis. BACK: No midline tenderness, no CVA tenderness RECTUM: Diffuse erythema and induration perirectally with exudate coming from the anus. No obvious abscess externally appreciated. EXTREMITIES: Severe lymphedema bilaterally. Normal motion all extremities, no cyanosis. NEUROLOGIC: Alert and oriented, no acute motor or sensory deficits, no focal weakness, cranial nerves grossly intact. SKIN: No rash, no jaundice, no diaphoresis. Medical Decision & Procedures Laboratory Results 10/07/16 23:23 Red Blood Count 4.19, Mean Corpuscular Volume 94.3, Mean Corpuscular Hemoglobin 30.8, Mean Corpuscular Hemoglobin Concent 32.7, Mean Platelet Volume 9.6, Neutrophils (%) (Auto) 70.8, Lymphocytes (%) (Auto) 16.1, Monocytes (%) (Auto) 10.4, Eosinophils (%) (Auto) 2.3, Basophils (%) (Auto) 0.3, Neutrophils # (Auto ) 5.44, Lymphocytes # (Auto) 1.24, Monocytes # (Auto) 0.80, Eosinophils # (Auto ) 0.18, Basophils # (Auto) 0.02 10/07/16 23:23 Test 10/07/16 23:23 White Blood Count 7.69 K/uL (4.8-10.8) Red Blood Count 4.19 M/uL (4.7-6.1) Hemoglobin 12.9 g/dL (14.0-18.0) Hematocrit 39.5 % (42-52) Mean Corpuscular Volume 94.3 fL (80-100) Mean Corpuscular Hemoglobin 30.8 pg (25-34) Mean Corpuscular Hemoglobin Concent 32.7 g/dl (32-36) Platelet Count 207 K/uL (130-400) Mean Platelet Volume 9.6 fL (7.4-10.4) Neutrophils (%) (Auto) 70.8 % Lymphocytes (%) (Auto) 16.1 % Monocytes (%) (Auto) 10.4 % Eosinophils (%) (Auto) 2.3 % Basophils (%) (Auto) 0.3 % Neutrophils # (Auto) 5.44 K/uL (1.4-6.5) Lymphocytes # (Auto) 1.24 K/uL (1.2-3.4) Monocytes # (Auto) 0.80 K/uL (0.11-0.59) Eosinophils # (Auto) 0.18 K/uL (0-0.5) Basophils # (Auto) 0.02 K/uL (0-0.2) RDW Standard Deviation 47.2 fL (36.4-46.3) RDW Coefficient of Variation 13.8 % (11.5-14.5) Immature Granulocyte % (Auto) 0.1 % Immature Granulocyte # (Auto) 0.01 K/uL (0.00-0.02) Erythrocyte Sedimentation Rate 59 mm/hr (0-14) Prothrombin Time 21.8 SECONDS (9.0-12.0) Prothromb Time International Ratio 2.0 (0.9-1.1) Activated Partial Thromboplast Time 39.6 SECONDS (21.0-31.0) Partial Thromboplastin Ratio 1.5 Anion Gap 10.0 mmol/L (3-11) Est Creatinine Clear Calc Drug Dose 51.3 ml/min Estimated GFR () 69.1 Estimated GFR (Non- 59.6 BUN/Creatinine Ratio 13.1 (10-20) Calcium Level 8.6 mg/dl (8.5-10.1) Magnesium Level 2.1 mg/dl (1.8-2.4) C-Reactive Protein 1.93 mg/dl (0-0.29) Digoxin Level 0.5 ng/ml (0.8-2.0) Laboratory results as reviewed by me. Medications Administered Medications (Trade) Dose Ordered Sig/Baldo Route Start Time Stop Time Status Last Admin Dose Admin Aztreonam 2000 mg/ Dextrose 110 ml @ 100 mls/hr NOW STAT IV 10/08/16 01:15 10/08/16 02:20 DC 10/08/16 01:34 100 MLS/HR ED Course 2304: The patient was evaluated in room B11. A complete history and physical exam was performed. 0111: I discussed the patient's case with Dr. Zazueta, [facility] Hospitalist. He is going to evaluate the patient for further treatment 0113: I reevaluated the patient, and he was resting comfortably. 0115: Aztreonam 2000mg/Dextrose 110ml @ 100mls/hr IV Medical Decision 75 yr old male with complex history over the last few months due to rectal abscess/fistula to right buttock. He is somewhat poor historian and I do not feel he completely understands what has been going on thus extensive chart review done. Recently discharged after drain placed and on Vanco orally up until 4 days ago. Now with increasing pain and rectal exudative discharge. By exam I suspect there is abscess once again. He is not septic and given clear history of this I feel emergent CT imaging of little benefit from ED standpoint as he has had 3 for this same issue over last few months. Previous culture with Pseudomonas susceptible to Aztreonam, thus with allergies this is what was ordered. Discussed with hospitalist for further evaluation/treatment. Of note , he does not have peritonitis nor surgical abdomen by exam. He is not overtly septic. No evidence of nec fasc by examination. Consults Time Called: 106 Consulting Physician: Dr. Rdz, [facility] Hospitalist Returned Call: [phone] I discussed the patient's [facility] the patient for further treatment Impression Primary Impression: Rectal abscess Scribe Attestation The scribe's documentation has been prepared under my direction and personally reviewed by me in its entirety. I confirm that the note above accurately reflects all work, treatment, procedures, and medical decision making performed by me. Departure Information Dispostion Being Evaluated By Hospitalist Referrals Isaac Still MD (PCP) Patient Instructions My [facility]
[2016-10-07 23:33] LABS: BASO % 0.3 %; BASO ABS # 0.02 K/uL (0-0.2); COMPLETE YES; EOS % 2.3 %; HEMATOCRIT 39.5 % (42-52); IG% 0.1 %; LYMPH % 16.1 %; LYMPH ABS # 1.24 K/uL (1.2-3.4); MEAN CELL VOLUME 94.3 fL (80-100); MEAN CORPUSCULAR HEMOGLOBIN 30.8 pg (25-34); MEAN CORPUSCULAR HGB CONC 32.7 g/dl (32-36); MEAN PLATELET VOLUME 9.6 fL (7.4-10.4); MONO % 10.4 %; NEUT % 70.8 %; PLATELET COUNT 207 K/uL (130-400); RED BLOOD COUNT 4.19 M/uL (4.7-6.1); WHITE BLOOD COUNT 7.69 K/uL (4.8-10.8)
[2016-10-07 23:46] LABS: PARTIAL THROMBOPLASTIN RATIO 1.5; PROTHROMBIN TIME (PATIENT) 21.8 SECONDS (9.0-12.0)
[2016-10-07 23:54] LABS: BUN/CREATININE RATIO 13.1 (10-20); C-REACTIVE PROTEIN 1.93 mg/dl (0-0.29); CALCIUM 8.6 mg/dl (8.5-10.1); CREATININE 1.2 mg/dl (0.60-1.40); MAGNESIUM 2.1 mg/dl (1.8-2.4); POTASSIUM 4.1 mmol/L (3.5-5.1)
[2016-10-08] VITALS (8 sets, daily range): BP systolic 108–149; BP diastolic 68–86; PULSE 67–85; TEMP 36.7–36.8; O2SAT 95–97; Ht 170.2 cm; Wt 73.4 kg
[2016-10-08] MEDS ORDERED: AZTREONAM IV 2,000 MG in DEXTROSE 5% 100ML 100 ML IV STA (01:15)
[2016-10-08] MEDS ORDERED: POLYETHYLENE (MIRALAX) 17 GM PACK PO PRN (02:30)
[2016-10-08] MEDS ORDERED: ALUMINUM/MAGNESIUM/SIMETH (MAALOX MAX) 30 ML UDC PO PRN (02:30)
[2016-10-08] MEDS ORDERED: MAGNESIUM HYDROXIDE SUSP 30 ML UDC PO PRN (02:30)
[2016-10-08] MEDS ORDERED: ACETAMINOPHEN 325 MG TAB PO PRN (02:30)
[2016-10-08] MEDS ORDERED: ONDANSETRON INJ 2 MG/ML 2 ML VIAL IV PRN (02:30)
[2016-10-08] MEDS ORDERED: HEPARIN SOD 5000 UNIT/0.5 ML CARP SQ SCH (02:30)
--- NOTE | 2016-10-08 02:40 | History and Physical ---
History & Physical Date & Time of Service: Oct 08, 2016 at 02:34 Chief Complaint: Bowel Issues, Puss Drainage Primary Care Physician: Isaac Still MD History of Present Illness Source: patient, family 75 year old male presents to the [facility] ED with his son. Patient states that he was in his usual state of health today until approximately 6pm. He notes at that time that he went to the bathroom and had 5 -6 bowel movements that looked like they had pus in them. The patient denies blood in the stool or dark tarry stool. He also notes that at baseline he has low grade abdominal pain with bowel movements but this has gotten worse in the past 1 day. He describes a lower abdominal cramping pain that feels like "someone is twisting my stomach side to side". He denies any nausea or vomiting. He has not had any fevers or sweats. He has chills at baseline. His appetite has been normal. His also adds that he has been much weaker for the past 3-4 days but was ambulating per baseline prior to that. In addition, the patient notes some crusting of his right eye. State that he does not have eye pain or difficulty with eye movements at this time. Of note, he was recently discharged from the [facility] on 09/20 for diarrhea. On that admission he was noted to have a adelina-rectal abscess. He was taken to the OR for exploration on 09/19. A [address] drain was placed and he was discharged home with outpatient surgery follow-up. His son notes that the drain was taken out in the Gen Surg office [address] also had findings concerning for possible colitis and he was thus referred for GI follow-up, which he was suppose to have done this week. He was also noted to be C.diff positive on that visit and was discharged on a 10 day course of oral vancomycin, for which he completed the course. Past Medical/Surgical History Medical Problems: (1) Atrial fibrillation Status: Chronic (2) CAD (coronary artery disease) Permanent Comment: s/p stent x [address] [facility] [place] ~ 2005, details unknown Status: Chronic (3) HTN (hypertension) Status: Chronic (4) Hypothyroidism Status: Chronic Surgical Problems: (1) History of cataract surgery Status: Chronic (2) History of colon resection Permanent Comment: for diverticulitis Status: Chronic Family History Cancer Diabetes mellitus Gallbladder disease Heart disease Kidney disease Kidney stones Lung disease Social History Smoking Status: Never Smoker Smokeless Tobacco Use: No Alcohol Use: none Drug Use: none Marital Status: Housing status: lives with family Occupational Status: retired Allergies Coded Allergies: Amoxicillin (Verified Allergy, Intermediate, RASH, ITCHING, 10/12/16) Cephalexin (Verified Allergy, Intermediate, RASH,ITCHING, 10/12/16) Ciprofloxacin (Verified Allergy, Intermediate, RASH, 10/12/16) Patient becomes itchy/arm becomes reddened Clavulanic Acid (Verified Allergy, Intermediate, RASH, ITCHING, 10/12/16) Penicillins (Verified Allergy, Intermediate, AUGMENTIN-RASH,ITCHING, ) Morphine (Verified Allergy, Mild, RASH, 10/08/16) Home Medications Scheduled Atorvastatin (Lipitor), 10 MG PO DAILY Aztreonam (Aztreonam), 1 GM IV Q8H Carvedilol (Coreg), 3.125 MG PO AMHS Digoxin (Digoxin), 0.125 MG PO QPM Levothyroxine Sodium (Levothyroxine Sodium), 88 MCG PO DAILY Metronidazole (Metronidazole), 500 MG PO TID Potassium Chloride (Klor-Con Ext Rel), 8 MEQ PO AMHS Spironolactone (Spironolactone), 25 MG PO AMHS Vancomycin HCl (Vancomycin HCl), 125 MG PO QID Warfarin Sod (Jantoven), 2 MG PO Q2D Warfarin Sod (Jantoven), 4 MG PO Q2D Review of Systems A 10 point review of systems was negative unless stated above. Physical Exam Vital Signs Date Time Temp Pulse Resp B/P (MAP) Pulse Ox O2 Delivery O2 Flow Rate FiO2 10/08/16 01:37 76 18 101/75 96 Room Air 10/07/16 22:57 36.7 96 20 151/83 94 Room Air General Appearance: WD/WN, no apparent distress Head: normocephalic, atraumatic Eyes: + pertinent finding (left eye [place], right eyelids crusting over, mild conjunctival injection on right eye) ENT: hearing grossly normal, pharynx normal Neck: supple, no adenopathy, no JVD Respiratory/Chest: lungs clear, no respiratory distress Cardiovascular: regular rate, rhythm, no gallop, no murmur Abdomen/GI: normal bowel sounds, soft, + pertinent finding (LLQ tenderness) Back: no CVA tenderness, normal range of motion Extremities/Musculoskelatal: no calf tenderness, + pedal edema (asymmetric R > L, noted to be baseline; no acute changes per patient and son; skin ulcer on anterior simmons of left leg) Neurologic/Psych: alert, normal mood/affect, oriented x 3 Skin: normal color, warm/dry, no rash, + pertinent finding (mild purulence, no definitive punctum at 7-8 oclock position in the anus; no areas of fluctuance) Lymphatic: no adenopathy Diagnostics Laboratory Results Results Past 24 Hours Test 10/07/16 23:23 Range/Units White Blood Count 7.69 4.8-10.8 K/uL Red Blood Count 4.19 4.7-6.1 M/uL Hemoglobin 12.9 14.0-18.0 g/dL Hematocrit 39.5 42-52 % Mean Corpuscular Volume 94.3 80-100 fL Mean Corpuscular Hemoglobin 30.8 25-34 pg Mean Corpuscular Hemoglobin Concent 32.7 32-36 g/dl Platelet Count 207 130-400 K/uL Mean Platelet Volume 9.6 7.4-10.4 fL Neutrophils (%) (Auto) 70.8 % Lymphocytes (%) (Auto) 16.1 % Monocytes (%) (Auto) 10.4 % Eosinophils (%) (Auto) 2.3 % Basophils (%) (Auto) 0.3 % Neutrophils # (Auto) 5.44 1.4-6.5 K/uL Lymphocytes # (Auto) 1.24 1.2-3.4 K/uL Monocytes # (Auto) 0.80 0.11-0.59 K/uL Eosinophils # (Auto) 0.18 0-0.5 K/uL Basophils # (Auto) 0.02 0-0.2 K/uL RDW Standard Deviation 47.2 36.4-46.3 fL RDW Coefficient of Variation 13.8 11.5-14.5 % Immature Granulocyte % (Auto) 0.1 % Immature Granulocyte # (Auto) 0.01 0.00-0.02 K/uL Erythrocyte Sedimentation Rate 59 0-14 mm/hr Prothrombin Time 21.8 9.0-12.0 SECONDS Prothromb Time International Ratio 2.0 0.9-1.1 Activated Partial Thromboplast Time 39.6 21.0-31.0 SECONDS Partial Thromboplastin Ratio 1.5 Sodium Level 142 136-145 mmol/L Potassium Level 4.1 3.5-5.1 mmol/L Chloride Level 105 98-107 mmol/L Carbon Dioxide Level 27 21-32 mmol/L Anion Gap 10.0 3-11 mmol/L Blood Urea Nitrogen 16 7-18 mg/dl Creatinine 1.20 0.60-1.40 mg/dl Est Creatinine Clear Calc Drug Dose 51.3 ml/min Estimated GFR () 69.1 Estimated GFR (Non- 59.6 BUN/Creatinine Ratio 13.1 10-20 Random Glucose 101 70-99 mg/dl Calcium Level 8.6 8.5-10.1 mg/dl Magnesium Level 2.1 1.8-2.4 mg/dl C-Reactive Protein 1.93 0-0.29 mg/dl Digoxin Level 0.5 0.8-2.0 ng/ml Impression Assessment and Plan (1) Rectal abscess (2) History of Clostridium difficile infection (3) Atrial fibrillation (4) CAD (coronary artery disease) (5) Acute kidney injury (6) HTN (hypertension) (7) Hypothyroidism (8) History of colon resection (9) History of cataract surgery (10) Chronic venous stasis dermatitis of both lower extremities (11) Conjunctivitis, right eye 75 year old male presenting with apparently purulent bowel movements for 1 day. Patient did have recent exploration of rectal abscess with drain insertion on . There was also consideration, based on CT findings of rectal thickening that there may be an underlying diagnosis of IBD, though endoscopic evaluation is still pending. Certainly purulence from within the bowel lumen is also a possibility to consider. Our plan for him is as follows: Rectal Purulence, hx of rectal abscess - Abscess exploration 09/19 with drainage insertion; removed 4 days ago; we will consult Dr. Gonzalez for recommendations on whether external source for purulence is evident - Pending evaluation for IBD; was due to see. Dr. Kowalski this week. We will repeat CT abdomen/pelvis and consult Dr. Kowalski to determine if endoscopy is warranted at this time admission. - Will order CT abdomen without contrast - Reviewed culture data. Wound culture Pseudomonas positive. Patient has multiple penicillin allergies. Will double cover pseudomonas based on previous susceptibilities with Aztreonam and Tobramycin Will consult ID for antibiotic management recommendations History of C.Diff - Has completed course of oral vancomycin prior to arrival - Will re-test C.diff now Hypothyroidism - Continue Levothyroxine Coronary Artery Disease with History of Diastolic CHF - Continue ASA, Atorvastatin and Carvedilol - Hold Spironolactone due to mild KADEEM Mild KADEEM - Cr. 1.3; baseline 0.8-0.9 - Will start on IVF rehydration and monitor renal function daily. - NSS at 125 ml/hr; reassess tomorrow with caution to not overhydrate due to history of CHF Conjunctivitis of the Right Eye - Poly-Trim Eye drops - Warm compresses to the eyes History of Atrial Fibrillation - Continue Carvedilol - Continue Digoxin - Patient on Coumadin, in anticipation of possible procedure if no response to antibiotics, will hold Coumadin and put patient on heparin infusion Bilateral Lower Extremity Swelling - Swelling at baseline R > L - Patient has dry skin with pigmentation suggestive of chronic swelling - Will consult wound care DVT prophylaxis - SCD - Heparin infusion Code Status - DNR Disposition - Med/Surg Level of Care Med/Surg Resuscitation Status DO NOT RESUSCITATE VTE Prophylaxis VTE Risk Assessment Done? Y/N: Yes Risk Level: Moderate Given or contraindicated: Unfractionated heparin SQ Assessment and Plan Attending Addendum: I have physically seen and examined this patient, have directed their medical care, have supervised the medical residents activities, and agree with the H&P as noted above, with the following changes: NONE
[2016-10-08] MEDS ORDERED: TOBRAMYCIN SULF IV SCH (03:00)
[2016-10-08] MEDS ORDERED: DEXTROSE 5% IV SCH (03:00)
[2016-10-08] MEDS ORDERED: TOBRAMYCIN CONSULT ACTIVE PRN (03:15)
[2016-10-08] MEDS: HEPARIN 25,000 UNIT/500ML D5W 500 ML IV PRN ×7 (03:38→22:54)
[2016-10-08] MEDS: SODIUM CHLORIDE 0.9% 1000ML 1,000 ML IV SCH ×3 (04:02→19:15)
[2016-10-08] MEDS: LEVOTHYROXINE 88 MCG TAB PO SCH (05:53)
[2016-10-08] MEDS ORDERED: OPTIRAY 320 IV PRN (07:15)
[2016-10-08 07:21] LABS: BASO % 0.4 %; BASO ABS # 0.03 K/uL (0-0.2); COMPLETE YES; EOS % 2.9 %; HEMATOCRIT 38.8 % (42-52); IG% 0.1 %; LYMPH % 21.6 %; LYMPH ABS # 1.63 K/uL (1.2-3.4); MEAN CELL VOLUME 93.9 fL (80-100); MEAN PLATELET VOLUME 9.3 fL (7.4-10.4); MONO % 8.3 %; NEUT % 66.7 %; PLATELET COUNT 203 K/uL (130-400); RED BLOOD COUNT 4.13 M/uL (4.7-6.1); WHITE BLOOD COUNT 7.55 K/uL (4.8-10.8)
[2016-10-08 07:55] LABS: BUN/CREATININE RATIO 15.5 (10-20); CALCIUM 8.4 mg/dl (8.5-10.1); CREATININE 0.97 mg/dl (0.60-1.40); POTASSIUM 3.9 mmol/L (3.5-5.1)
--- NOTE | 2016-10-08 08:30 | DIAGNOSTIC IMAGING REPORT ---
ABDOMEN AND PELVIS CT WITH IV AND ORAL CONTRAST CT DOSE: 338.01 mGy.cm HISTORY: Perirectal abscess rectal purulence; monitor rectal thickening TECHNIQUE: Multiaxial CT images of the abdomen and pelvis were performed following the use of intravenous and oral contrast. COMPARISON STUDY: 09/17/2016 FINDINGS: Right perirectal collection is moderately diminished in volume. Current maximum dimensions are 2.5 x 0.7 cm. Moderate perirectal wall thickening in a rectal wall thickening is considered stable. Bowel pattern overall is nonobstructive. No additional acute abnormalities of the abdomen or pelvis. Lung bases remain clear. IMPRESSION: 1. Slightly improved right perirectal collection. 2. No current well-defined fistulous tract. 3. Moderate stable rectal wall thickening. Electronically signed by: Dung Ortega M.D. 10/08/2016 8:29 AM Dictated Date/Time: 10/08/2016 8:24 AM
[2016-10-08] MEDS: ATORVASTATIN 10 MG TAB PO SCH (08:52)
[2016-10-08] MEDS: POTASSIUM CHLORIDE 10 MEQ TABCR PO SCH ×2 (08:52→20:55)
[2016-10-08] MEDS: TRIMETHOPRIM/POLYMYXIN B OP SCH ×4 (08:53→20:51)
[2016-10-08] MEDS: CARVEDILOL 3.125 MG TAB PO SCH ×2 (09:03→20:56)
[2016-10-08] MEDS: RASPBERRY SYRUP 5 ML UDP PO SCH ×4 (09:32→20:51)
[2016-10-08] MEDS: VANCOMYCIN HCL 125 MG/2.5ML SOLN PO SCH ×4 (09:33→20:51)
[2016-10-08] MEDS: AZTREONAM IV 1,000 MG in DEXTROSE 5% 100ML 100 ML IV SCH ×2 (09:34→18:03)
[2016-10-08 10:25] LABS: PARTIAL THROMBOPLASTIN RATIO 3.6
--- NOTE | 2016-10-08 11:14 | Hospitalist Progress Note ---
Hospitalist Progress Note Date of Service Oct 08, 2016. (Estela Montes PA-C) Subjective Pt evaluation today including: conversation w/ patient, physical exam, chart review, lab review, review of studies, review of inpatient medication list Patient seen and evaluated. Admitted overnight for diarrhea, abdominal pain, purulent BMs, and generalized weakness. He reports he normally has 3-4 BMs a day but yesterday he started having more frequent BMs. He reports that the frequent BMs started before he went to a chicken dinner. Continues to have cramping abdominal pain that is relieved by BMs. C. Diff repeated and positive and restarted on Vancomycin He had BM this AM that was tested for C. diff, then had a BM prior to my arrival and another while I was in the room this AM. Constitutional: + chills (ongoing), + weakness (generalized), No fever Respiratory: No shortness of breath Cardiovascular: No chest pain Abdomen: + pain (cramping - intermittent and relieved by BMs), + diarrhea, No nausea, No vomiting, No constipation, No GI bleeding Musculoskeletal: + swelling (bilateral lower extremities - baseline), No calf pain Male : No dysuria Skin: No rash (Estela Montes PA-C) Medications Current Inpatient Medications Medications (Trade) Dose Ordered Sig/Baldo Route Start Time Stop Time Status Last Admin Dose Admin Acetaminophen (Tylenol Tab) 650 mg Q4H PRN PO 10/08/16 02:30 11/07/16 02:29 Al Hydrox/Mg Hydrox/Simethicone (Maalox Max Susp) 15 ml Q4H PRN PO 10/08/16 02:30 11/07/16 02:29 Magnesium Hydroxide (Milk Of Magnesia Susp) 30 ml Q6H PRN PO 10/08/16 02:30 11/07/16 02:29 Polyethylene (Miralax Powder Packet) 17 gm DAILY PRN PO 10/08/16 02:30 11/07/16 02:29 Ondansetron HCl (Zofran Inj) 4 mg Q6H PRN IV 10/08/16 02:30 11/07/16 02:29 Aztreonam 1000 mg/ Dextrose 110 ml @ 100 mls/hr Q8H IV 10/08/16 10:00 10/18/16 09:59 10/08/16 09:34 100 MLS/HR Atorvastatin Calcium (Lipitor Tab) 10 mg DAILY PO 10/08/16 09:00 11/07/16 08:59 10/08/16 08:52 10 MG Carvedilol (Coreg Tab) 3.125 mg AMHS PO 10/08/16 09:00 11/07/16 08:59 10/08/16 09:03 3.125 MG Digoxin (Lanoxin Tab) 0.125 mg DAILY@1600 PO 10/08/16 16:00 11/07/16 15:59 Levothyroxine Sodium (Synthroid Tab) 88 mcg DAILYBB PO 10/08/16 06:00 11/07/16 06:59 10/08/16 05:53 88 MCG Potassium Chloride (Klor-Con M10) 10 meq AMHS PO 10/08/16 09:00 11/07/16 08:59 10/08/16 08:52 10 MEQ Heparin Sodium/ Dextrose 500 ml @ 22 mls/hr [id number] PRN IV 10/08/16 03:15 11/07/16 03:14 10/08/16 10:35 22 MLS/HR Tobramycin Sulfate (Consult) 1 ea UD PRN N/A 10/08/16 03:15 11/07/16 03:14 Polymyxin/ Trimethoprim Sulfate (Polytrim Oph Soln) 1 drops QID OP 10/08/16 09:00 11/07/16 08:59 10/08/16 13:34 1 DROPS Sodium Chloride 1,000 ml @ 125 mls/hr Q8H IV 10/08/16 03:00 11/07/16 02:59 10/08/16 11:07 125 MLS/HR Ioversol (Optiray 320) 125 ml UD PRN IV 10/08/16 07:15 10/12/16 07:14 Vancomycin HCl (Vancomycin Oral Soln) 125 mg QID PO 10/08/16 09:00 10/22/16 08:59 10/08/16 13:34 125 MG Raspberry (Raspberry Syrup 5ml Cup) 5 ml QID PO 10/08/16 09:00 10/22/16 08:59 10/08/16 13:35 5 ML Metronidazole (Flagyl Tab) 500 mg TID PO 10/08/16 15:15 10/18/16 15:14 (Estela Montes PA-C) Objective Vital Signs Date Time Temp Pulse Resp B/P (MAP) Pulse Ox O2 Delivery O2 Flow Rate FiO2 10/08/16 07:36 36.7 67 16 108/72 (84) 95 Room Air 10/08/16 03:15 117/75 (89) 10/08/16 02:45 Room Air 10/08/16 02:45 36.8 75 16 96 Room Air 10/08/16 02:32 86 18 109/71 96 10/08/16 01:37 76 18 101/75 96 Room Air 10/07/16 22:57 36.7 96 20 151/83 94 Room Air (Estela Montes PA-C) Physical Exam General Appearance: WD/WN, no apparent distress Eyes: sclerae normal ENT: hearing grossly normal Neck: supple, no JVD, trachea midline Respiratory/Chest: lungs clear, no respiratory distress, no accessory muscle use, + decreased breath sounds Cardiovascular: no gallop, no murmur, + irregularly irregular Abdomen: normal bowel sounds, non tender, soft Extremities: no calf tenderness, + swelling (bilateral lower extremity edema with reyes/purple discoloration) Neurologic/Psychiatric: alert, oriented x 3, + pertinent finding (gait observed which appears steady but tiptoes on L foot with ambulation) Skin: warm/dry (Estela Montes, ALEX-C) Laboratory Results Last 24 Hours Test 10/07/16 23:23 10/08/16 07:05 White Blood Count 7.69 K/uL 7.55 K/uL Red Blood Count 4.19 M/uL 4.13 M/uL Hemoglobin 12.9 g/dL 12.4 g/dL Hematocrit 39.5 % 38.8 % Mean Corpuscular Volume 94.3 fL 93.9 fL Mean Corpuscular Hemoglobin 30.8 pg 30.0 pg Mean Corpuscular Hemoglobin Concent 32.7 g/dl 32.0 g/dl Platelet Count 207 K/uL 203 K/uL Mean Platelet Volume 9.6 fL 9.3 fL Neutrophils (%) (Auto) 70.8 % 66.7 % Lymphocytes (%) (Auto) 16.1 % 21.6 % Monocytes (%) (Auto) 10.4 % 8.3 % Eosinophils (%) (Auto) 2.3 % 2.9 % Basophils (%) (Auto) 0.3 % 0.4 % Neutrophils # (Auto) 5.44 K/uL 5.03 K/uL Lymphocytes # (Auto) 1.24 K/uL 1.63 K/uL Monocytes # (Auto) 0.80 K/uL 0.63 K/uL Eosinophils # (Auto) 0.18 K/uL 0.22 K/uL Basophils # (Auto) 0.02 K/uL 0.03 K/uL RDW Standard Deviation 47.2 fL 47.2 fL RDW Coefficient of Variation 13.8 % 13.8 % Immature Granulocyte % (Auto) 0.1 % 0.1 % Immature Granulocyte # (Auto) 0.01 K/uL 0.01 K/uL Erythrocyte Sedimentation Rate 59 mm/hr Prothrombin Time 21.8 SECONDS Prothromb Time International Ratio 2.0 Activated Partial Thromboplast Time 39.6 SECONDS Partial Thromboplastin Ratio 1.5 Sodium Level 142 mmol/L 138 mmol/L Potassium Level 4.1 mmol/L 3.9 mmol/L Chloride Level 105 mmol/L 103 mmol/L Carbon Dioxide Level 27 mmol/L 26 mmol/L Anion Gap 10.0 mmol/L 9.0 mmol/L Blood Urea Nitrogen 16 mg/dl 15 mg/dl Creatinine 1.20 mg/dl 0.97 mg/dl Est Creatinine Clear Calc Drug Dose 51.3 ml/min 63.4 ml/min Estimated GFR () 69.1 89.4 Estimated GFR (Non- 59.6 77.1 BUN/Creatinine Ratio 13.1 15.5 Random Glucose 101 mg/dl 79 mg/dl Calcium Level 8.6 mg/dl 8.4 mg/dl Magnesium Level 2.1 mg/dl C-Reactive Protein 1.93 mg/dl Digoxin Level 0.5 ng/ml (Estela Montes, FLORECITAC) Assessment and Plan 75 year old male presenting with apparently purulent bowel movements for 1 day. Patient did have recent exploration of rectal abscess with drain insertion on . There was also consideration, based on CT findings of rectal thickening that there may be an underlying diagnosis of IBD, though endoscopic evaluation is still pending. Certainly purulence from within the bowel lumen is also a possibility to consider. Purulent Stool with H/O Rectal Abscess S/P Surgical Exploration and Drain Insertion 09/19: Drain removed x 4 days ago - Rectal abscess cx - pseudomonas + with MDR - Aztreonam 2 g IV Q8H and Flagyl 500 mg TID - CT Abd/Pelvis - image and report reviewed - slightly improved R perirectal collection, no well-defined fistulous tract, and moderate stable rectal wall thickening - Consult Gen Surg - recommendations reviewed - no surgical intervention; may need evaluation from [place] colorectal surgeon - Consult GI - due to see Dr. Kowalski this week - endoscopy? - Consult ID - recommendations reviewed - Aztreonam and Flagyl may need 1-2 weeks; continue Vanco and likely needs 6 week taper H/O C.Diff on Previous Admission August - Has had 3 BM this AM so far -- Reports that yesterday started frequent stools prior to this average 3-4 regular BMs - Oral vancomycin course x 14 days completed on previous admission - C. Diff this admission - positive - may be related to previous dx however given symptoms will treat - Vancomycin 125 mg QID - may need long taper Hypothyroidism: - Levothyroxine 88 mcg daily Coronary Artery Disease with Chronic Diastolic CHF: - Hold ASA at this time for possible surgical procedure - Atorvastatin 10 mg daily - Hold Spironolactone due to mild KADEEM Mild KADEEM: Baseline 0.8-0.9 - NSS at 125 ml/hr; reassess tomorrow with caution to not overhydrate due to history of CHF Conjunctivitis of the Right Eye: - Poly-Trim Eye drops - Warm compresses to the eyes Persistent? Atrial Fibrillation: - Hold Coumadin and start Heparin gtt for anticipation of possible procedure - Carvedilol 3.125 mg BID - Digoxin 0.125 mg daily Bilateral Lower Extremity Swelling with Chronic Venous Dermatitis: Baseline - Wound care - legs appear dry and mild weeping DVT Prophylaxis: Heparin gtt Code Status: DO NOT RESUSCITATE Disposition: From home - PT/OT evaluations Continued [facility] stay due to: multiple IV medications needed Discharge planning: uncertain (Estela Montes, PAGuillermoC) Attending Attestation & Admission Note: Pt seen/examined, chart reviewed, and care plan d/w ALEX Montes. I agree w/ the almeida components of her documentation. Continues with diarrhea but not as much mucous. Denies rectal bleeding. No abd pain. No vomiting. VSS afebrile gen - nad mouth - MMM neck - no JVD heart - irregular, s1, s2 lungs - CTA b/l abd - mild distension, BS+, minimal tenderness b/l lower quadrants ext - stasis changes b/l shins, scant edema A/P: 1. perirectal abscess - ongoing. Surgery consult appreciated. Cont aztreonam (previous cx with pseudomonas); flagyl added by ID. 2. ?undiagnosed IBD - GI consult done, colonoscopy on Saturday. 3. c. diff colitis - vanco PO with prolonged taper. 4. FEN - cut fluid rate to 80cc/hr from 125. labs in maye GALINDO MD (Lester Galindo MD)
--- NOTE | 2016-10-08 13:44 | Medical Consult ---
Consultation Date of Consultation: Oct 08, 2016. Attending Physician: Lester Galindo MD Reason for Consultation: history of perirectal abscess, recurrent c diff History of Present Illness pt adm with abd pain- no c/o perianal pain- "that area is all healed" 09/19/16 s/p I/D, drain placed Rt perirectal phlegmonous cavity in office 09/27/16- looked good- removed drain CT today- Rt perirectal area no 2.5 cmx 7 mm- much smaller Past Medical/Surgical History Medical Problems: (1) C. difficile colitis Status: Acute (2) Diarrhea Status: Acute (3) Fistula Status: Acute (4) Perirectal abscess Status: Acute (5) Perirectal abscess Status: Acute (6) Perirectal cellulitis Status: Acute (7) Proctitis Status: Acute (8) Rectal abscess Status: Acute (9) Subtherapeutic international normalized ratio (INR) Status: Acute (10) Tremor Status: Acute (11) Urinary retention Status: Acute (12) Weakness Status: Acute Family History Cancer Diabetes mellitus Gallbladder disease Heart disease Kidney disease Kidney stones Lung disease Social History Smoking Status: Former Smoker Smokeless Tobacco Use: No Alcohol Use: none Drug Use: none Marital Status: Housing Status: lives with family Occupation Status: retired Allergies Coded Allergies: Ciprofloxacin (Verified Allergy, Mild, RASH, 10/08/16) Patient becomes itchy/arm becomes reddened Morphine (Verified Allergy, Mild, RASH, 10/08/16) Amoxicillin (Verified Allergy, Unknown, ., 10/08/16) Cephalexin (Verified Allergy, Unknown, ., 10/08/16) Clavulanic Acid (Verified Allergy, Unknown, ., 10/08/16) Penicillins (Verified Allergy, Unknown, ., 10/08/16) Current Inpatient Medications Current Inpatient Medications Medications (Trade) Dose Ordered Sig/Baldo Route Start Time Stop Time Status Last Admin Dose Admin Acetaminophen (Tylenol Tab) 650 mg Q4H PRN PO 10/08/16 02:30 11/07/16 02:29 Al Hydrox/Mg Hydrox/Simethicone (Maalox Max Susp) 15 ml Q4H PRN PO 10/08/16 02:30 11/07/16 02:29 Magnesium Hydroxide (Milk Of Magnesia Susp) 30 ml Q6H PRN PO 10/08/16 02:30 11/07/16 02:29 Polyethylene (Miralax Powder Packet) 17 gm DAILY PRN PO 10/08/16 02:30 11/07/16 02:29 Ondansetron HCl (Zofran Inj) 4 mg Q6H PRN IV 10/08/16 02:30 11/07/16 02:29 Aztreonam 1000 mg/ Dextrose 110 ml @ 100 mls/hr Q8H IV 10/08/16 10:00 10/18/16 09:59 10/08/16 09:34 100 MLS/HR Atorvastatin Calcium (Lipitor Tab) 10 mg DAILY PO 10/08/16 09:00 11/07/16 08:59 10/08/16 08:52 10 MG Carvedilol (Coreg Tab) 3.125 mg AMHS PO 10/08/16 09:00 11/07/16 08:59 10/08/16 09:03 3.125 MG Digoxin (Lanoxin Tab) 0.125 mg DAILY@1600 PO 10/08/16 16:00 11/07/16 15:59 Levothyroxine Sodium (Synthroid Tab) 88 mcg DAILYBB PO 10/08/16 06:00 11/07/16 06:59 10/08/16 05:53 88 MCG Potassium Chloride (Klor-Con M10) 10 meq AMHS PO 10/08/16 09:00 11/07/16 08:59 10/08/16 08:52 10 MEQ Heparin Sodium/ Dextrose 500 ml @ 22 mls/hr [id number] PRN IV 10/08/16 03:15 11/07/16 03:14 10/08/16 10:35 22 MLS/HR Tobramycin Sulfate (Consult) 1 ea UD PRN N/A 10/08/16 03:15 11/07/16 03:14 Polymyxin/ Trimethoprim Sulfate (Polytrim Oph Soln) 1 drops QID OP 10/08/16 09:00 11/07/16 08:59 10/08/16 08:53 1 DROPS Sodium Chloride 1,000 ml @ 125 mls/hr Q8H IV 10/08/16 03:00 11/07/16 02:59 10/08/16 11:07 125 MLS/HR Ioversol (Optiray 320) 125 ml UD PRN IV 10/08/16 07:15 10/12/16 07:14 Vancomycin HCl (Vancomycin Oral Soln) 125 mg QID PO 10/08/16 09:00 10/22/16 08:59 10/08/16 09:33 125 MG Raspberry (Raspberry Syrup 5ml Cup) 5 ml QID PO 10/08/16 09:00 10/22/16 08:59 10/08/16 09:32 5 ML Physical Exam Date Time Temp Pulse Resp B/P (MAP) Pulse Ox O2 Delivery O2 Flow Rate FiO2 10/08/16 09:02 76 149/80 (103) 10/08/16 09:00 Room Air 10/08/16 07:36 36.7 67 16 108/72 (84) 95 Room Air 10/08/16 03:15 117/75 (89) 10/08/16 02:45 Room Air 10/08/16 02:45 36.8 75 16 96 Room Air 10/08/16 02:32 86 18 109/71 96 10/08/16 01:37 76 18 101/75 96 Room Air 10/07/16 22:57 36.7 96 20 151/83 94 Room Air General Appearance: no apparent distress Respiratory/Chest: no respiratory distress Abdomen/GI: + pertinent finding (no adelina anal drainage or induration, or erythema) Laboratory Results Last 24 Hours Test 10/07/16 23:23 10/08/16 07:05 10/08/16 09:47 10/08/16 12:11 White Blood Count 7.69 K/uL 7.55 K/uL Red Blood Count 4.19 M/uL 4.13 M/uL Hemoglobin 12.9 g/dL 12.4 g/dL Hematocrit 39.5 % 38.8 % Mean Corpuscular Volume 94.3 fL 93.9 fL Mean Corpuscular Hemoglobin 30.8 pg 30.0 pg Mean Corpuscular Hemoglobin Concent 32.7 g/dl 32.0 g/dl Platelet Count 207 K/uL 203 K/uL Mean Platelet Volume 9.6 fL 9.3 fL Neutrophils (%) (Auto) 70.8 % 66.7 % Lymphocytes (%) (Auto) 16.1 % 21.6 % Monocytes (%) (Auto) 10.4 % 8.3 % Eosinophils (%) (Auto) 2.3 % 2.9 % Basophils (%) (Auto) 0.3 % 0.4 % Neutrophils # (Auto) 5.44 K/uL 5.03 K/uL Lymphocytes # (Auto) 1.24 K/uL 1.63 K/uL Monocytes # (Auto) 0.80 K/uL 0.63 K/uL Eosinophils # (Auto) 0.18 K/uL 0.22 K/uL Basophils # (Auto) 0.02 K/uL 0.03 K/uL RDW Standard Deviation 47.2 fL 47.2 fL RDW Coefficient of Variation 13.8 % 13.8 % Immature Granulocyte % (Auto) 0.1 % 0.1 % Immature Granulocyte # (Auto) 0.01 K/uL 0.01 K/uL Erythrocyte Sedimentation Rate 59 mm/hr Prothrombin Time 21.8 SECONDS Prothromb Time International Ratio 2.0 Activated Partial Thromboplast Time 39.6 SECONDS 92.6 SECONDS Partial Thromboplastin Ratio 1.5 3.6 Sodium Level 142 mmol/L 138 mmol/L Potassium Level 4.1 mmol/L 3.9 mmol/L Chloride Level 105 mmol/L 103 mmol/L Carbon Dioxide Level 27 mmol/L 26 mmol/L Anion Gap 10.0 mmol/L 9.0 mmol/L Blood Urea Nitrogen 16 mg/dl 15 mg/dl Creatinine 1.20 mg/dl 0.97 mg/dl Est Creatinine Clear Calc Drug Dose 51.3 ml/min 63.4 ml/min Estimated GFR () 69.1 89.4 Estimated GFR (Non- 59.6 77.1 BUN/Creatinine Ratio 13.1 15.5 Random Glucose 101 mg/dl 79 mg/dl Calcium Level 8.6 mg/dl 8.4 mg/dl Magnesium Level 2.1 mg/dl C-Reactive Protein 1.93 mg/dl Digoxin Level 0.5 ng/ml Assessment & Plan 10/08/16- h/o perirectal abscess, drainage of area 09/19- improved- I could not identify a fistula- I suppose he could have a high , posterior fistula which could reaccumulate. If that occurs , I would consider him seeing a [place] colorectal surgeon. Endoscopy may be helpful. No plan for surgery
--- NOTE | 2016-10-08 14:27 | Medical Consult ---
Consultation Date of Consultation: Oct 08, 2016. Attending Physician: Lester Galindo MD Reason for Consultation: Abx management- pseudomonas from wound last admission History of Present Illness Patient is a 75 yo male with recently history of multiple hospitalizations for concern of perirectal abscess and recurrent C. Diff. The patient presented to the ED with concerns of worsening abdominal pain, trouble moving his bowels, and pus from around his rectum. The patient was previously treated for C. Diff following admission. He states that his stools did form slightly but then worsened again following discontinuation. The patient had exploratory surgery of the perirectal area completed on 09/19/16 at which time he was noted to have perirectal phlegmon but not necessary any pus from the area. A drain was placed at the time and cultures were taken. The patient ultimately grew Pseudomonas which was resistant to Quinolones and Gentamicin and intermediately resistant to Imipenem and Amikacin. He ultimately was treated with PO Vancomycin for C. Diff and PO Flagyl for perirectal abscess and discharged to home. Since currently admission, the patient had C. diff toxin positive again. CT of the abdomen/pelvis showed moderately diminished volume of the right perirectal collection now measuring 2.5 x 0.7 cm with continued moderate perirectal thickening. WBC count on admission was 7.69. ESR was 59, and CRP was 1.93. Creatinine was 0.97 today. Patient is currently on IV Aztreonam, Tobramycin and PO Vancomycin. Past Medical/Surgical History Medical Problems: (1) C. difficile colitis Status: Acute (2) Diarrhea Status: Acute (3) Fistula Status: Acute (4) Perirectal abscess Status: Acute (5) Perirectal abscess Status: Acute (6) Perirectal cellulitis Status: Acute (7) Proctitis Status: Acute (8) Rectal abscess Status: Acute (9) Subtherapeutic international normalized ratio (INR) Status: Acute (10) Tremor Status: Acute (11) Urinary retention Status: Acute (12) Weakness Status: Acute Medical Problems: (1) Acute kidney injury (2) Atrial fibrillation (3) CAD (coronary artery disease) (4) Chronic venous stasis dermatitis of both lower extremities (5) Conjunctivitis, right eye (6) History of Clostridium difficile infection (7) HTN (hypertension) (8) Hypothyroidism (9) Perianal fistula Surgical Problems: (1) History of cataract surgery (2) History of colon resection Family History Cancer Diabetes mellitus Gallbladder disease Heart disease Kidney disease Kidney stones Lung disease Noncontributory Social History Smoking Status: Former Smoker Smokeless Tobacco Use: No Alcohol Use: none Drug Use: none Marital Status: Housing Status: lives with family Occupation Status: retired Allergies Coded Allergies: Ciprofloxacin (Verified Allergy, Mild, RASH, 10/08/16) Patient becomes itchy/arm becomes reddened Morphine (Verified Allergy, Mild, RASH, 10/08/16) Amoxicillin (Verified Allergy, Unknown, ., 10/08/16) Cephalexin (Verified Allergy, Unknown, ., 10/08/16) Clavulanic Acid (Verified Allergy, Unknown, ., 10/08/16) Penicillins (Verified Allergy, Unknown, ., 10/08/16) Home Medications Reported Home Medications Medications Dose Route/Sig Max Daily Dose Days Date Category Dose Instructions Levothyroxine Sodium 88 Mcg Tab 88 Mcg PO DAILY 08/17/16 Reported Klor-Con Ext Rel (Potassium Chloride) 8 Meq Tabcr 8 Meq PO AMHS 08/17/16 Reported Lipitor (Atorvastatin Calcium) 10 Mg Tab 10 Mg PO DAILY 06/20/16 Reported Jantoven (Warfarin Sodium) 4 Mg Tab 4 Mg PO Q2D 06/20/16 Reported STARTS ON WITH 4MG THEN ALTERNATES DOSES Jantoven (Warfarin Sodium) 2 Mg Tab 2 Mg PO Q2D 06/20/16 Reported STARTS ON SATURDAY WITH 4MG THEN ALTERNATES DOSES Digoxin 0.125 Mg Tab 0.125 Mg PO QPM 06/20/16 Reported Coreg (Carvedilol) 3.125 Mg Tab 3.125 Mg PO AMHS 06/20/16 Reported Spironolactone 25 Mg Tab 25 Mg PO AMHS 06/20/16 Reported Current Inpatient Medications Current Inpatient Medications Medications (Trade) Dose Ordered Sig/Baldo Route Start Time Stop Time Status Last Admin Dose Admin Acetaminophen (Tylenol Tab) 650 mg Q4H PRN PO 10/08/16 02:30 11/07/16 02:29 Al Hydrox/Mg Hydrox/Simethicone (Maalox Max Susp) 15 ml Q4H PRN PO 10/08/16 02:30 11/07/16 02:29 Magnesium Hydroxide (Milk Of Magnesia Susp) 30 ml Q6H PRN PO 10/08/16 02:30 11/07/16 02:29 Polyethylene (Miralax Powder Packet) 17 gm DAILY PRN PO 10/08/16 02:30 11/07/16 02:29 Ondansetron HCl (Zofran Inj) 4 mg Q6H PRN IV 10/08/16 02:30 11/07/16 02:29 Aztreonam 1000 mg/ Dextrose 110 ml @ 100 mls/hr Q8H IV 10/08/16 10:00 10/18/16 09:59 10/08/16 09:34 100 MLS/HR Atorvastatin Calcium (Lipitor Tab) 10 mg DAILY PO 10/08/16 09:00 11/07/16 08:59 10/08/16 08:52 10 MG Carvedilol (Coreg Tab) 3.125 mg AMHS PO 10/08/16 09:00 11/07/16 08:59 10/08/16 09:03 3.125 MG Digoxin (Lanoxin Tab) 0.125 mg DAILY@1600 PO 10/08/16 16:00 11/07/16 15:59 Levothyroxine Sodium (Synthroid Tab) 88 mcg DAILYBB PO 10/08/16 06:00 11/07/16 06:59 10/08/16 05:53 88 MCG Potassium Chloride (Klor-Con M10) 10 meq AMHS PO 10/08/16 09:00 11/07/16 08:59 10/08/16 08:52 10 MEQ Heparin Sodium/ Dextrose 500 ml @ 22 mls/hr [id number] PRN IV 10/08/16 03:15 11/07/16 03:14 10/08/16 10:35 22 MLS/HR Tobramycin Sulfate (Consult) 1 ea UD PRN N/A 10/08/16 03:15 11/07/16 03:14 Polymyxin/ Trimethoprim Sulfate (Polytrim Oph Soln) 1 drops QID OP 10/08/16 09:00 11/07/16 08:59 10/08/16 13:34 1 DROPS Sodium Chloride 1,000 ml @ 125 mls/hr Q8H IV 10/08/16 03:00 11/07/16 02:59 10/08/16 11:07 125 MLS/HR Ioversol (Optiray 320) 125 ml UD PRN IV 10/08/16 07:15 10/12/16 07:14 Vancomycin HCl (Vancomycin Oral Soln) 125 mg QID PO 10/08/16 09:00 10/22/16 08:59 10/08/16 13:34 125 MG Raspberry (Raspberry Syrup 5ml Cup) 5 ml QID PO 10/08/16 09:00 10/22/16 08:59 10/08/16 13:35 5 ML Review of Systems Constitutional: + weakness, + fatigue, No fever, No chills, No sweats Eyes: No worsening of vision ENT: No hearing loss Respiratory: No cough, No shortness of breath Cardiovascular: No chest pain, No palpitations Abdomen: + pain, + diarrhea, + problem reported (rectal pain on and off, uncomfortable), No vomiting Musculoskeletal: No joint pain, No muscle pain Genitourinary - Male: No hematuria, No dysuria Integumentary: No rash, No itch Physical Exam Date Time Temp Pulse Resp B/P (MAP) Pulse Ox O2 Delivery O2 Flow Rate FiO2 10/08/16 09:02 76 149/80 (103) 10/08/16 09:00 Room Air 10/08/16 07:36 36.7 67 16 108/72 (84) 95 Room Air 10/08/16 03:15 117/75 (89) 10/08/16 02:45 Room Air 10/08/16 02:45 36.8 75 16 96 Room Air 10/08/16 02:32 86 18 109/71 96 10/08/16 01:37 76 18 101/75 96 Room Air 10/07/16 22:57 36.7 96 20 151/83 94 Room Air General Appearance: WD/WN, no apparent distress Head: normocephalic, atraumatic Eyes: normal inspection ENT: hearing grossly normal Neck: supple, trachea midline Respiratory/Chest: chest non-tender, lungs clear, no respiratory distress, no accessory muscle use, + decreased breath sounds (slightly decreased at bases) Cardiovascular: regular rate, rhythm Abdomen/GI: normal bowel sounds, + tenderness (mild generalized) Neurologic/Psych: alert, normal mood/affect Skin: normal color, warm/dry, no rash Laboratory Results ABDOMEN AND PELVIS CT WITH IV AND ORAL CONTRAST CT DOSE: 338.01 mGy.cm HISTORY: Perirectal abscess rectal purulence; monitor rectal thickening TECHNIQUE: Multiaxial CT images of the abdomen and pelvis were performed following the use of intravenous and oral contrast. COMPARISON STUDY: 09/17/2016 FINDINGS: Right perirectal collection is moderately diminished in volume. Current maximum dimensions are 2.5 x 0.7 cm. Moderate perirectal wall thickening in a rectal wall thickening is considered stable. Bowel pattern overall is nonobstructive. No additional acute abnormalities of the abdomen or pelvis. Lung bases remain clear. IMPRESSION: 1. Slightly improved right perirectal collection. 2. No current well-defined fistulous tract. 3. Moderate stable rectal wall thickening. Item Value Date Time C.difficile Toxin B Gene (PCR) - Final Complete 10/08/16 0708 Stool Positive for C. difficile toxin B gene Last 24 Hours Test 10/07/16 23:23 10/08/16 07:05 10/08/16 09:47 10/08/16 12:11 White Blood Count 7.69 K/uL 7.55 K/uL Red Blood Count 4.19 M/uL 4.13 M/uL Hemoglobin 12.9 g/dL 12.4 g/dL Hematocrit 39.5 % 38.8 % Mean Corpuscular Volume 94.3 fL 93.9 fL Mean Corpuscular Hemoglobin 30.8 pg 30.0 pg Mean Corpuscular Hemoglobin Concent 32.7 g/dl 32.0 g/dl Platelet Count 207 K/uL 203 K/uL Mean Platelet Volume 9.6 fL 9.3 fL Neutrophils (%) (Auto) 70.8 % 66.7 % Lymphocytes (%) (Auto) 16.1 % 21.6 % Monocytes (%) (Auto) 10.4 % 8.3 % Eosinophils (%) (Auto) 2.3 % 2.9 % Basophils (%) (Auto) 0.3 % 0.4 % Neutrophils # (Auto) 5.44 K/uL 5.03 K/uL Lymphocytes # (Auto) 1.24 K/uL 1.63 K/uL Monocytes # (Auto) 0.80 K/uL 0.63 K/uL Eosinophils # (Auto) 0.18 K/uL 0.22 K/uL Basophils # (Auto) 0.02 K/uL 0.03 K/uL RDW Standard Deviation 47.2 fL 47.2 fL RDW Coefficient of Variation 13.8 % 13.8 % Immature Granulocyte % (Auto) 0.1 % 0.1 % Immature Granulocyte # (Auto) 0.01 K/uL 0.01 K/uL Erythrocyte Sedimentation Rate 59 mm/hr Prothrombin Time 21.8 SECONDS Prothromb Time International Ratio 2.0 Activated Partial Thromboplast Time 39.6 SECONDS 92.6 SECONDS Partial Thromboplastin Ratio 1.5 3.6 Sodium Level 142 mmol/L 138 mmol/L Potassium Level 4.1 mmol/L 3.9 mmol/L Chloride Level 105 mmol/L 103 mmol/L Carbon Dioxide Level 27 mmol/L 26 mmol/L Anion Gap 10.0 mmol/L 9.0 mmol/L Blood Urea Nitrogen 16 mg/dl 15 mg/dl Creatinine 1.20 mg/dl 0.97 mg/dl Est Creatinine Clear Calc Drug Dose 51.3 ml/min 63.4 ml/min Estimated GFR () 69.1 89.4 Estimated GFR (Non- 59.6 77.1 BUN/Creatinine Ratio 13.1 15.5 Random Glucose 101 mg/dl 79 mg/dl Calcium Level 8.6 mg/dl 8.4 mg/dl Magnesium Level 2.1 mg/dl C-Reactive Protein 1.93 mg/dl Digoxin Level 0.5 ng/ml Assessment & Plan Patient with 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 Patient is currently on IV Aztreonam and PO Vancomycin. Will add PO Flagyl 500 mg TID for better anaerobic coverage for perirectal fluid collection as well and D/C Tobramycin. Otherwise, agree with Aztreonam and PO Vancomycin. Because he has had multiple recurrences of C. Diff, recommend at least a 6 week tapering course of PO Vancomycin, but may need longer pending symptomatic improvement. Patient may need 1-2 weeks of abx therapy for perirectal fluid collection. We will continue to follow. Case reviewed and agree with above assessment.
[2016-10-08] MEDS: DIGOXIN 0.125 MG TAB PO SCH (15:41)
[2016-10-08] MEDS: METRONIDAZOLE 500 MG TAB PO SCH ×2 (15:41→20:55)
[2016-10-08 17:32] LABS: PARTIAL THROMBOPLASTIN RATIO 3.7
--- NOTE | 2016-10-08 19:53 | GASTROINTESTINAL CONSULTATION ---
DATE OF CONSULTATION: 10/08/2016 REASON FOR CONSULTATION: Perirectal abscess and C. diff colitis, possible inflammatory bowel disease. HISTORY OF PRESENT ILLNESS: The patient is a 75-year-old male who presented to see Dr. Gonzalez in August with a right perirectal abscess that was surgically drained with a drain tube placed. This was removed recently in his office, it was taken out about 4 days ago and the patient was brought back to the hospital yesterday with increasing purulent drainage from the rectum. He has had about 5 or 6 bowel movements that looked like there was pus in them, denies seeing any blood or dark looking stool. Some low grade abdominal pain. The patient does have a positive stool for C. diff, is currently on vancomycin for that. There is a question about whether or not he might have inflammatory bowel disease because of his perirectal abscess. PAST MEDICAL HISTORY: Remarkable for coronary artery disease, status post stent placed at [place] in 2005. He has got chronic atrial fibrillation, hypertension, hypothyroidism, history of cataract surgery and a bowel resection involving the colon for diverticulitis complications. MEDICATIONS: Lipitor, Coreg, digoxin, levothyroxine, Klor-Con, spironolactone and Jantoven. ALLERGIES: CIPRO, MORPHINE, AMOXICILLIN, CEPHALEXIN, CLAVULANIC ACID AND PENICILLIN. FAMILY HISTORY: Positive for diabetes, gallbladder disease, heart disease, kidney disease, kidney stones, lung disease and cancer. SOCIAL HISTORY: The patient is and lives with his family. He is retired. He does not smoke. REVIEW OF SYSTEMS: Positive for low grade abdominal pain. Remainder is negative. PHYSICAL EXAMINATION: GENERAL: The patient appears in no acute distress. VITAL SIGNS: Normal. He is afebrile. HEART: Showed normal S1 and S2 with a regular rate and rhythm. LUNGS: Clear. ABDOMEN: Shows low midline scar. Bowel sounds are normal. There are no masses or tenderness. RECTAL: Exam shows a right perianal scar from the drainage of his abscess which is healing well. LABORATORY: Shows a white count of 7.69, hemoglobin 12.9, platelets are 207. Sedimentation rate is 59. CRP is also elevated at 1.93. IMPRESSION: The patient had a perirectal abscess of unclear etiology, it has been drained and seems to be healing. He does have positive stool for C. diff and is being treated for that currently. There is a question about whether he might have underlying irritable bowel, as his rectum is thickened on CT scan and he has not had a colonoscopy. He was due to see Dr. Kowalski this week in the office to make these arrangements, hope to proceed with colonoscopy with Dr. Kowalski on Saturday and work on getting bowel prep done tomorrow.
[2016-10-09 02:03] LABS: PARTIAL THROMBOPLASTIN RATIO 2.9
[2016-10-09] MEDS: AZTREONAM IV 1,000 MG in DEXTROSE 5% 100ML 100 ML IV SCH ×3 (02:30→17:23)
[2016-10-09] MEDS: HEPARIN 25,000 UNIT/500ML D5W 500 ML IV PRN ×6 (02:33→23:12)
[2016-10-09] MEDS: LEVOTHYROXINE 88 MCG TAB PO SCH (05:27)
--- NOTE | 2016-10-09 07:16 | Hospitalist Progress Note ---
Hospitalist Progress Note Date of Service Oct 09, 2016. (Estela Montes PA-C) Subjective Pt evaluation today including: conversation w/ patient, physical exam, chart review, lab review, review of studies, review of inpatient medication list Patient seen and evaluated. Reports poor sleep overnight. Reports some improvement with diarrhea. Plan for colonoscopy tomorrow by Dr. Kowalski. Reports tolerance of current diet. Constitutional: + fatigue, No fever, No chills Respiratory: No shortness of breath Cardiovascular: No chest pain Abdomen: + pain (cramping), + diarrhea, No nausea, No vomiting, No GI bleeding Musculoskeletal: + swelling (chronic bilateral lower extremity), No calf pain Male : No dysuria (Estela Montes PA-C) Medications Current Inpatient Medications Medications (Trade) Dose Ordered Sig/Baldo Route Start Time Stop Time Status Last Admin Dose Admin Acetaminophen (Tylenol Tab) 650 mg Q4H PRN PO 10/08/16 02:30 11/07/16 02:29 Al Hydrox/Mg Hydrox/Simethicone (Maalox Max Susp) 15 ml Q4H PRN PO 10/08/16 02:30 11/07/16 02:29 Magnesium Hydroxide (Milk Of Magnesia Susp) 30 ml Q6H PRN PO 10/08/16 02:30 11/07/16 02:29 Polyethylene (Miralax Powder Packet) 17 gm DAILY PRN PO 10/08/16 02:30 11/07/16 02:29 Ondansetron HCl (Zofran Inj) 4 mg Q6H PRN IV 10/08/16 02:30 11/07/16 02:29 Aztreonam 1000 mg/ Dextrose 110 ml @ 100 mls/hr Q8H IV 10/08/16 10:00 10/18/16 09:59 10/09/16 02:30 100 MLS/HR Atorvastatin Calcium (Lipitor Tab) 10 mg DAILY PO 10/08/16 09:00 11/07/16 08:59 10/08/16 08:52 10 MG Carvedilol (Coreg Tab) 3.125 mg AMHS PO 10/08/16 09:00 11/07/16 08:59 10/08/16 20:56 3.125 MG Digoxin (Lanoxin Tab) 0.125 mg DAILY@1600 PO 10/08/16 16:00 11/07/16 15:59 10/08/16 15:41 0.125 MG Levothyroxine Sodium (Synthroid Tab) 88 mcg DAILYBB PO 10/08/16 06:00 11/07/16 06:59 10/09/16 05:27 88 MCG Potassium Chloride (Klor-Con M10) 10 meq AMHS PO 10/08/16 09:00 11/07/16 08:59 10/08/16 20:55 10 MEQ Heparin Sodium/ Dextrose 500 ml @ 18 mls/hr Q24H PRN IV 10/08/16 03:15 11/07/16 03:14 10/09/16 06:58 18 MLS/HR Polymyxin/ Trimethoprim Sulfate (Polytrim Oph Soln) 1 drops QID OP 10/08/16 09:00 11/07/16 08:59 10/08/16 20:51 1 DROPS Sodium Chloride 1,000 ml @ 80 mls/hr [id number] IV 10/08/16 03:00 11/07/16 02:59 10/08/16 19:15 80 MLS/HR Ioversol (Optiray 320) 125 ml UD PRN IV 10/08/16 07:15 10/12/16 07:14 Vancomycin HCl (Vancomycin Oral Soln) 125 mg QID PO 10/08/16 09:00 10/22/16 08:59 10/08/16 20:51 125 MG Raspberry (Raspberry Syrup 5ml Cup) 5 ml QID PO 10/08/16 09:00 10/22/16 08:59 10/08/16 20:51 5 ML Metronidazole (Flagyl Tab) 500 mg TID PO 10/08/16 15:15 10/18/16 15:14 10/08/16 20:55 500 MG Polyethylene Glycol/ Electrolytes (Golytely Soln) 8 dose 0700,1600 PO 10/09/16 16:00 10/10/16 11:00 (Estela Montes, BONNIE) Objective Vital Signs Date Time Temp Pulse Resp B/P (MAP) Pulse Ox O2 Delivery O2 Flow Rate FiO2 10/09/16 00:10 Room Air 10/08/16 23:20 36.7 85 20 146/86 (106) 97 Room Air 10/08/16 20:53 77 117/69 (85) 10/08/16 15:41 72 10/08/16 15:40 72 10/08/16 15:20 Room Air 10/08/16 15:13 36.7 72 18 128/68 (88) 97 Room Air 10/08/16 09:02 76 149/80 (103) 10/08/16 09:00 Room Air 10/08/16 07:36 36.7 67 16 108/72 (84) 95 Room Air (Estela Montes PA-C) Physical Exam General Appearance: WD/WN, no apparent distress Eyes: sclerae normal ENT: hearing grossly normal Neck: supple, no JVD, trachea midline Respiratory/Chest: lungs clear, normal breath sounds, no respiratory distress, no accessory muscle use Cardiovascular: no gallop, no murmur, + irregularly irregular Abdomen: normal bowel sounds, non tender, soft Extremities: + swelling (chronic stasis findings) Neurologic/Psychiatric: alert Skin: normal color, warm/dry (Estela Montes PA-C) Laboratory Results Last 24 Hours Test 10/08/16 09:47 10/08/16 12:11 10/08/16 17:05 10/09/16 01:10 Activated Partial Thromboplast Time 92.6 SECONDS 97.0 SECONDS 74.6 SECONDS Partial Thromboplastin Ratio 3.6 3.7 2.9 Random Tobramycin Level 6.80 mcg/mL Test 10/09/16 04:44 (Estela Montes PA-C) Assessment and Plan 75 year old male presenting with apparently purulent bowel movements for 1 day. Patient did have recent exploration of rectal abscess with drain insertion on . There was also consideration, based on CT findings of rectal thickening that there may be an underlying diagnosis of IBD, though endoscopic evaluation is still pending. Certainly purulence from within the bowel lumen is also a possibility to consider. Purulent Stool with H/O Rectal Abscess S/P Surgical Exploration and Drain Insertion 09/19: Drain removed x 4 days ago - Rectal abscess cx - pseudomonas + with MDR - Aztreonam 2 g IV Q8H and Flagyl 500 mg TID - Consult Gen Surg - recommendations reviewed - no surgical intervention; may need evaluation from [place] colorectal surgeon - Consult GI - recommendations reviewed - plan for colonoscopy Saturday - Consult ID - recommendations reviewed - Aztreonam and Flagyl may need 1-2 weeks; continue Vanco and likely needs 6 week taper H/O C.Diff on Previous Admission (August): Oral vancomycin course x 14 days completed on previous admission - C. 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 Atrial Fibrillation: - Hold Coumadin and continue heparin gtt at this time. Will await findings of colonoscopy and plan to resume Coumadin tomorrow - Carvedilol 3.125 mg BID - Digoxin 0.125 mg daily Bilateral Lower Extremity Swelling with Chronic Venous Dermatitis: Baseline - Wound care following - appreciate dressings of wounds DVT Prophylaxis: Heparin gtt Code Status: DO NOT RESUSCITATE Disposition: From home - PT/OT evaluations - patient has decline inpatient rehab in the past - may benefit from home PT services Continued [facility] stay due to: multiple IV medications needed Discharge planning: uncertain (Estela Montes, PAGuillermoC) Attending Attestation & Admission Note: Pt seen/examined, chart reviewed, and care plan d/w ALEX Montes. I agree w/ the almeida components of her documentation. Continues with diarrhea and some mucous. Currently undergoing prep for colonoscopy in AM. Denies rectal bleeding. No abd pain. No vomiting. VSS afebrile gen - nad mouth - MMM neck - no JVD heart - irregular, s1, s2 lungs - CTA b/l abd - no distension today, BS+, no tenderness ext - stasis changes b/l shins, no edema labs - cbc, bmp stable A/P: 1. perirectal abscess - cont aztreonam (previous cx with pseudomonas) and flagyl. 2. ?undiagnosed IBD - GI consult done, colonoscopy tomorrow. 3. c. diff colitis - vanco PO with prolonged taper. 4. FEN - continue IVF at 80cc/hr; BMP in am. 5. hypothyroidism - no TSH in our EMR; check in am to ensure euthyroid state. 6. DVT proph - SCDs. 7. a. fib - cont heparin; hold coumadin; stop heparin for colonoscopy in am. Devi GALINDO MD (Lester Galindo MD)
[2016-10-09] MEDS: SODIUM CHLORIDE 0.9% 1000ML 1,000 ML IV SCH ×2 (07:48→20:48)
[2016-10-09 08:05] VITALS: BP 135/96; PULSE 62; TEMP 36.6; O2SAT 95
[2016-10-09 08:12] LABS: HEMATOCRIT 37.8 % (42-52); MEAN CELL VOLUME 94.7 fL (80-100); MEAN CORPUSCULAR HEMOGLOBIN 29.3 pg (25-34); MEAN PLATELET VOLUME 9.2 fL (7.4-10.4); PLATELET COUNT 163 K/uL (130-400); RED BLOOD COUNT 3.99 M/uL (4.7-6.1); WHITE BLOOD COUNT 5.21 K/uL (4.8-10.8)
[2016-10-09 08:30] LABS: PARTIAL THROMBOPLASTIN RATIO 2.7
[2016-10-09 08:46] LABS: BUN/CREATININE RATIO 13.7 (10-20); CREATININE 0.79 mg/dl (0.60-1.40); POTASSIUM 3.9 mmol/L (3.5-5.1)
[2016-10-09] MEDS: RASPBERRY SYRUP 5 ML UDP PO SCH ×4 (09:14→20:49)
[2016-10-09] MEDS: VANCOMYCIN HCL 125 MG/2.5ML SOLN PO SCH ×4 (09:17→20:49)
[2016-10-09] MEDS: TRIMETHOPRIM/POLYMYXIN B OP SCH ×4 (09:19→20:53)
[2016-10-09] MEDS: METRONIDAZOLE 500 MG TAB PO SCH ×3 (09:19→20:51)
[2016-10-09] MEDS: POTASSIUM CHLORIDE 10 MEQ TABCR PO SCH ×2 (09:20→20:51)
[2016-10-09] MEDS: ATORVASTATIN 10 MG TAB PO SCH (09:20)
[2016-10-09] MEDS: CARVEDILOL 3.125 MG TAB PO SCH ×2 (09:20→20:52)
[2016-10-09 09:52] VITALS: BP 135/96; PULSE 62; PULSE 85; TEMP 36.6; O2SAT 95
[2016-10-09 10:07] LABS: CALCIUM 8.5 mg/dl (8.5-10.1)
--- NOTE | 2016-10-09 11:06 | Infectious Disease Progress Nt ---
Progress Note Date of Service Oct 09, 2016. Subjective Pt evaluation today including: conversation w/ patient, physical exam, chart review, lab review, review of studies, review of inpatient medication list WBC count was 5.21 this morning. The patient states that he feeling slightly improved this morning in regards to his bowels. He states that he had a huge "blow out" bowel movement yesterday evening, and he became weak after that movement. He had some more stools this morning that were slightly more formed though. He describes continued mild pain in his lower abdomen. Creatinine this morning was 0.79. I briefly discussed this patient with Estela Montes PA-C. All Other Systems: Reviewed and Negative Medications Current Inpatient Medications Medications (Trade) Dose Ordered Sig/Baldo Route Start Time Stop Time Status Last Admin Dose Admin Acetaminophen (Tylenol Tab) 650 mg Q4H PRN PO 10/08/16 02:30 11/07/16 02:29 Al Hydrox/Mg Hydrox/Simethicone (Maalox Max Susp) 15 ml Q4H PRN PO 10/08/16 02:30 11/07/16 02:29 Magnesium Hydroxide (Milk Of Magnesia Susp) 30 ml Q6H PRN PO 10/08/16 02:30 11/07/16 02:29 Polyethylene (Miralax Powder Packet) 17 gm DAILY PRN PO 10/08/16 02:30 11/07/16 02:29 Ondansetron HCl (Zofran Inj) 4 mg Q6H PRN IV 10/08/16 02:30 11/07/16 02:29 Aztreonam 1000 mg/ Dextrose 110 ml @ 100 mls/hr Q8H IV 10/08/16 10:00 10/18/16 09:59 10/09/16 09:16 100 MLS/HR Atorvastatin Calcium (Lipitor Tab) 10 mg DAILY PO 10/08/16 09:00 11/07/16 08:59 10/09/16 09:20 10 MG Carvedilol (Coreg Tab) 3.125 mg AMHS PO 10/08/16 09:00 11/07/16 08:59 10/09/16 09:20 3.125 MG Digoxin (Lanoxin Tab) 0.125 mg DAILY@1600 PO 10/08/16 16:00 11/07/16 15:59 10/08/16 15:41 0.125 MG Levothyroxine Sodium (Synthroid Tab) 88 mcg DAILYBB PO 10/08/16 06:00 11/07/16 06:59 10/09/16 05:27 88 MCG Potassium Chloride (Klor-Con M10) 10 meq AMHS PO 10/08/16 09:00 11/07/16 08:59 10/09/16 09:20 10 MEQ Heparin Sodium/ Dextrose 500 ml @ 18 mls/hr Q24H PRN IV 10/08/16 03:15 11/07/16 03:14 10/09/16 09:08 18 MLS/HR Polymyxin/ Trimethoprim Sulfate (Polytrim Oph Soln) 1 drops QID OP 10/08/16 09:00 11/07/16 08:59 10/09/16 09:19 1 DROPS Sodium Chloride 1,000 ml @ 80 mls/hr [id number] IV 10/08/16 03:00 11/07/16 02:59 10/09/16 07:48 80 MLS/HR Ioversol (Optiray 320) 125 ml UD PRN IV 10/08/16 07:15 10/12/16 07:14 Vancomycin HCl (Vancomycin Oral Soln) 125 mg QID PO 10/08/16 09:00 10/22/16 08:59 10/09/16 09:17 125 MG Raspberry (Raspberry Syrup 5ml Cup) 5 ml QID PO 10/08/16 09:00 10/22/16 08:59 10/09/16 09:14 5 ML Metronidazole (Flagyl Tab) 500 mg TID PO 10/08/16 15:15 10/18/16 15:14 10/09/16 09:19 500 MG Polyethylene Glycol/ Electrolytes (Golytely Soln) 8 dose 0700,1600 PO 10/09/16 16:00 10/10/16 11:00 Objective Vital Signs Date Time Temp Pulse Resp B/P (MAP) Pulse Ox O2 Delivery O2 Flow Rate FiO2 10/09/16 09:52 36.6 85 22 135/96 95 Room Air 62 10/09/16 08:37 Room Air 95.0 10/09/16 08:05 36.6 62 22 135/96 (109) 95 Room Air 10/09/16 07:49 Room Air 10/09/16 00:10 Room Air 10/08/16 23:20 36.7 85 20 146/86 (106) 97 Room Air 10/08/16 20:53 77 117/69 (85) 10/08/16 15:41 72 10/08/16 15:40 72 10/08/16 15:20 Room Air 10/08/16 15:13 36.7 72 18 128/68 (88) 97 Room Air Physical Exam General Appearance: WD/WN, no apparent distress Eyes: normal inspection, sclerae normal ENT: hearing grossly normal Neck: supple, trachea midline Respiratory/Chest: no respiratory distress, no accessory muscle use Cardiovascular: + pertinent finding (regular rate) Extremities: normal range of motion Neurologic/Psychiatric: alert, normal mood/affect Skin: normal color, warm/dry, no rash Laboratory Results Item Value Date Time C.difficile Toxin B Gene (PCR) - Final Complete 10/08/16 0708 Stool Positive for C. difficile toxin B gene Last 24 Hours Test 10/08/16 12:11 10/08/16 17:05 10/09/16 01:10 10/09/16 08:08 Random Tobramycin Level 6.80 mcg/mL Activated Partial Thromboplast Time 97.0 SECONDS 74.6 SECONDS 69.6 SECONDS Partial Thromboplastin Ratio 3.7 2.9 2.7 White Blood Count 5.21 K/uL Red Blood Count 3.99 M/uL Hemoglobin 11.7 g/dL Hematocrit 37.8 % Mean Corpuscular Volume 94.7 fL Mean Corpuscular Hemoglobin 29.3 pg Mean Corpuscular Hemoglobin Concent 31.0 g/dl RDW Standard Deviation 47.9 fL RDW Coefficient of Variation 13.9 % Platelet Count 163 K/uL Mean Platelet Volume 9.2 fL Sodium Level 141 mmol/L Potassium Level 3.9 mmol/L Chloride Level 107 mmol/L Carbon Dioxide Level 25 mmol/L Anion Gap 9.0 mmol/L Blood Urea Nitrogen 11 mg/dl Creatinine 0.79 mg/dl Est Creatinine Clear Calc Drug Dose 77.9 ml/min Estimated GFR () 103.2 Estimated GFR (Non- 89.1 BUN/Creatinine Ratio 13.7 Random Glucose 86 mg/dl Calcium Level 8.5 mg/dl Assessment and Plan (1) Rectal abscess Status: Acute (2) 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 Patient is currently on IV Aztreonam, Flagyl, and PO Vancomycin. He is anticipated to have colonoscopy tomorrow. Recommend continuing current therapy pending further workup/ improvement. Likely will need a 6 week taper of PO Vancomycin for C. Diff, and would prefer to continued at least 1-2 more weeks of IV Aztreonam and Flagyl pending further GI evaluation. We will follow. Case reviewed and agree with above assessment.
[2016-10-09 15:07] VITALS: BP 116/70; PULSE 86; TEMP 36.8; O2SAT 97
[2016-10-09] MEDS: LAVAGE SOLUTION 4000ML PO SCH (15:24)
[2016-10-09] MEDS: DIGOXIN 0.125 MG TAB PO SCH (15:32)
--- NOTE | 2016-10-09 18:48 | GASTROENTEROLOGY PROGRESS NOTE ---
DATE: 10/09/2016 INPATIENT GASTROENTEROLOGY PROGRESS NOTE SUBJECTIVE: Mr. Doe is currently undergoing his bowel preparation for colonoscopy tomorrow. The patient had an admission for perirectal abscess drained by Dr. Gonzalez in August. The patient has noted increased drainage from the rectum and was also found to have C. diff positivity for which he is currently being treated with vancomycin. The CT scan suggested inflammation and possibility of inflammatory bowel disease has to be excluded by colonoscopy tomorrow. Overall, the patient is feeling well. PHYSICAL EXAMINATION: VITAL SIGNS: Today - afebrile at 36.8, blood pressure 116/70, respirations 16, heart rate 86, 97% on room air. LABORATORY STUDIES: Today - white count 5.2, hemoglobin 11.7, MCV 94, platelets 163,000. MEDICATIONS: Include digoxin, Flagyl and vancomycin for C. diff along with carvedilol, Lipitor, Synthroid. REVIEW OF SYSTEMS: Otherwise noncontributory based on 14-point exam. PHYSICAL EXAMINATION: GENERAL: The patient is awake, alert and oriented x3, sitting comfortably in bed. HEART: Normal S1, S2. LUNGS: Clear to auscultation. ABDOMEN: Soft, flat, nontender, nondistended. Good bowel sounds. EXTREMITIES: Without edema. RECTAL: Deferred. IMPRESSION: The patient to be fasting n.p.o. after midnight except for medications. He is currently undergoing his bowel prep for colonoscopy tomorrow with BMP after midnight except for meds. His last PTT this morning at 8:00 was 69 and heparin, if this is continued will need to be turned off 6 hours prior to the colonoscopy which will be in the mid afternoon. Therefore, cessation of heparin drip should be no later than 8:00 a.m.
[2016-10-09 20:47] VITALS: BP 130/76
[2016-10-09 23:29] VITALS: BP 123/83; PULSE 64; TEMP 36.7; O2SAT 98
[2016-10-10] MEDS: AZTREONAM IV 1,000 MG in DEXTROSE 5% 100ML 100 ML IV SCH ×3 (02:16→19:01)
[2016-10-10 04:09] VITALS: BP 158/88; PULSE 62; TEMP 36.5; O2SAT 96
[2016-10-10] MEDS: LEVOTHYROXINE 88 MCG TAB PO SCH (05:29)
--- NOTE | 2016-10-10 06:18 | Surgery Progress Note ---
Surgery Progress Note Date of Service Oct 10, 2016. Subjective afeb, resting comfortably no significant pain Objective Vital Signs: Date Time Temp Pulse Resp B/P (MAP) Pulse Ox O2 Delivery O2 Flow Rate FiO2 10/10/16 00:10 Room Air 10/09/16 23:29 36.7 64 17 123/83 (96) 98 Room Air 10/09/16 20:47 130/76 (94) 10/09/16 20:00 Room Air 10/09/16 15:32 84 10/09/16 15:07 36.8 86 16 116/70 (85) 97 Room Air 10/09/16 09:52 36.6 85 22 135/96 95 Room Air 62 10/09/16 08:37 Room Air 95.0 10/09/16 08:05 36.6 62 22 135/96 (109) 95 Room Air 10/09/16 07:49 Room Air Laboratory Results: Results Past 24 Hours Test 10/09/16 08:08 10/10/16 04:44 Range/Units White Blood Count 5.21 4.8-10.8 K/uL Red Blood Count 3.99 4.7-6.1 M/uL Hemoglobin 11.7 14.0-18.0 g/dL Hematocrit 37.8 42-52 % Mean Corpuscular Volume 94.7 80-100 fL Mean Corpuscular Hemoglobin 29.3 25-34 pg Mean Corpuscular Hemoglobin Concent 31.0 32-36 g/dl RDW Standard Deviation 47.9 36.4-46.3 fL RDW Coefficient of Variation 13.9 11.5-14.5 % Platelet Count 163 130-400 K/uL Mean Platelet Volume 9.2 7.4-10.4 fL Activated Partial Thromboplast Time 69.6 21.0-31.0 SECONDS Partial Thromboplastin Ratio 2.7 Sodium Level 141 136-145 mmol/L Potassium Level 3.9 3.5-5.1 mmol/L Chloride Level 107 98-107 mmol/L Carbon Dioxide Level 25 21-32 mmol/L Anion Gap 9.0 3-11 mmol/L Blood Urea Nitrogen 11 7-18 mg/dl Creatinine 0.79 0.60-1.40 mg/dl Est Creatinine Clear Calc Drug Dose 77.9 ml/min Estimated GFR () 103.2 Estimated GFR (Non- 89.1 BUN/Creatinine Ratio 13.7 10-20 Random Glucose 86 70-99 mg/dl Calcium Level 8.5 8.5-10.1 mg/dl Assessment & Plan 10/10/16- being treated for persistent/ recurrent c diff. plan noted for colonoscopy today. cont to follow pt progress
[2016-10-10] MEDS: LAVAGE SOLUTION 4000ML PO SCH (07:09)
[2016-10-10] MEDS: HEPARIN 25,000 UNIT/500ML D5W 500 ML IV PRN ×2 (07:11→08:13)
[2016-10-10 07:57] LABS: PARTIAL THROMBOPLASTIN RATIO 2.5
[2016-10-10 08:03] LABS: BUN/CREATININE RATIO 8.3 (10-20); CREATININE 0.77 mg/dl (0.60-1.40); POTASSIUM 3.9 mmol/L (3.5-5.1)
[2016-10-10 08:04] LABS: CALCIUM 8.3 mg/dl (8.5-10.1)
[2016-10-10 08:13] LABS: THYROID STIMULATING HORMONE 1.3 uIu/ml (0.300-4.500)
[2016-10-10 08:20] VITALS: BP 158/88; PULSE 62; TEMP 36.5; O2SAT 96
[2016-10-10 08:28] VITALS: O2SAT 96
[2016-10-10] MEDS: SODIUM CHLORIDE 0.9% 1000ML 1,000 ML IV SCH (08:49)
[2016-10-10] MEDS: TRIMETHOPRIM/POLYMYXIN B OP SCH ×4 (08:50→21:24)
[2016-10-10] MEDS: METRONIDAZOLE 500 MG TAB PO SCH ×3 (08:50→21:24)
[2016-10-10] MEDS: CARVEDILOL 3.125 MG TAB PO SCH ×2 (08:50→21:23)
[2016-10-10] MEDS: VANCOMYCIN HCL 125 MG/2.5ML SOLN PO SCH ×4 (08:51→21:24)
[2016-10-10] MEDS: RASPBERRY SYRUP 5 ML UDP PO SCH ×4 (08:51→21:24)
[2016-10-10] MEDS: ATORVASTATIN 10 MG TAB PO SCH (08:51)
[2016-10-10] MEDS: POTASSIUM CHLORIDE 10 MEQ TABCR PO SCH ×2 (08:51→21:24)
--- NOTE | 2016-10-10 11:37 | Infectious Disease Progress Nt ---
Progress Note Date of Service Oct 10, 2016. Subjective Pt evaluation today including: conversation w/ patient, physical exam, chart review, lab review, review of studies, conversation w/ network security consultant, review of inpatient medication list Patient is currently having multiple bowel movements again this morning, but he has been receiving bowel prep for his colonoscopy this afternoon. Creatinine today was 0.77. Patient continues on IV Aztreonam and PO Flagyl and Vancomycin. He is complaining of only mild abdominal pain this morning, and he is hoping to go home for his birthday tomorrow. I did discuss this patient briefly with Estela Montes PA-C as well. All Other Systems: Reviewed and Negative Medications Current Inpatient Medications Medications (Trade) Dose Ordered Sig/Baldo Route Start Time Stop Time Status Last Admin Dose Admin Acetaminophen (Tylenol Tab) 650 mg Q4H PRN PO 10/08/16 02:30 11/07/16 02:29 Al Hydrox/Mg Hydrox/Simethicone (Maalox Max Susp) 15 ml Q4H PRN PO 10/08/16 02:30 11/07/16 02:29 Magnesium Hydroxide (Milk Of Magnesia Susp) 30 ml Q6H PRN PO 10/08/16 02:30 11/07/16 02:29 Polyethylene (Miralax Powder Packet) 17 gm DAILY PRN PO 10/08/16 02:30 11/07/16 02:29 Ondansetron HCl (Zofran Inj) 4 mg Q6H PRN IV 10/08/16 02:30 11/07/16 02:29 Aztreonam 1000 mg/ Dextrose 110 ml @ 100 mls/hr Q8H IV 10/08/16 10:00 10/18/16 09:59 10/10/16 10:14 100 MLS/HR Atorvastatin Calcium (Lipitor Tab) 10 mg DAILY PO 10/08/16 09:00 11/07/16 08:59 10/10/16 08:51 10 MG Carvedilol (Coreg Tab) 3.125 mg AMHS PO 10/08/16 09:00 11/07/16 08:59 10/10/16 08:50 3.125 MG Digoxin (Lanoxin Tab) 0.125 mg DAILY@1600 PO 10/08/16 16:00 11/07/16 15:59 10/09/16 15:32 0.125 MG Levothyroxine Sodium (Synthroid Tab) 88 mcg DAILYBB PO 10/08/16 06:00 11/07/16 06:59 10/10/16 05:29 88 MCG Potassium Chloride (Klor-Con M10) 10 meq AMHS PO 10/08/16 09:00 11/07/16 08:59 10/10/16 08:51 10 MEQ Heparin Sodium/ Dextrose 500 ml @ 18 mls/hr Q24H PRN IV 10/08/16 03:15 11/07/16 03:14 Future Hold 10/10/16 08:13 18 MLS/HR Polymyxin/ Trimethoprim Sulfate (Polytrim Oph Soln) 1 drops QID OP 10/08/16 09:00 11/07/16 08:59 10/10/16 08:50 1 DROPS Sodium Chloride 1,000 ml @ 80 mls/hr [id number] IV 10/08/16 03:00 11/07/16 02:59 10/10/16 08:49 80 MLS/HR Ioversol (Optiray 320) 125 ml UD PRN IV 10/08/16 07:15 10/12/16 07:14 Vancomycin HCl (Vancomycin Oral Soln) 125 mg QID PO 10/08/16 09:00 10/22/16 08:59 10/10/16 08:51 125 MG Raspberry (Raspberry Syrup 5ml Cup) 5 ml QID PO 10/08/16 09:00 10/22/16 08:59 10/10/16 08:51 5 ML Metronidazole (Flagyl Tab) 500 mg TID PO 10/08/16 15:15 10/18/16 15:14 10/10/16 08:50 500 MG Objective Vital Signs Date Time Temp Pulse Resp B/P (MAP) Pulse Ox O2 Delivery O2 Flow Rate FiO2 10/10/16 08:28 96 Room Air 10/10/16 08:20 36.5 62 22 158/88 (111) 96 Room Air 10/10/16 00:10 Room Air 10/09/16 23:29 36.7 64 17 123/83 (96) 98 Room Air 10/09/16 20:47 130/76 (94) 10/09/16 20:00 Room Air 10/09/16 15:32 84 10/09/16 15:07 36.8 86 16 116/70 (85) 97 Room Air Physical Exam General Appearance: WD/WN, no apparent distress Eyes: normal inspection, sclerae normal ENT: hearing grossly normal Neck: supple, trachea midline Respiratory/Chest: no respiratory distress, no accessory muscle use Cardiovascular: + pertinent finding (regular rate) Extremities: normal range of motion Neurologic/Psychiatric: alert, normal mood/affect Skin: normal color, warm/dry, no rash Laboratory Results Last 24 Hours Test 10/10/16 07:18 Activated Partial Thromboplast Time 64.4 SECONDS Partial Thromboplastin Ratio 2.5 Sodium Level 142 mmol/L Potassium Level 3.9 mmol/L Chloride Level 107 mmol/L Carbon Dioxide Level 28 mmol/L Anion Gap 7.0 mmol/L Blood Urea Nitrogen 6 mg/dl Creatinine 0.77 mg/dl Est Creatinine Clear Calc Drug Dose 79.9 ml/min Estimated GFR () 104.3 Estimated GFR (Non- 90.0 BUN/Creatinine Ratio 8.3 Random Glucose 90 mg/dl Calcium Level 8.3 mg/dl Thyroid Stimulating Hormone (TSH) 1.300 uIu/ml Assessment and Plan (1) Rectal abscess Status: Acute (2) 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 Patient is currently on IV Aztreonam, Flagyl, and PO Vancomycin. He is anticipated to have colonoscopy this afternoon. Recommend continuing current therapy pending further workup/ improvement. Ultimately, this patient would prefer not to continue IV abx therapy, and he does not wish to go to SNF. Therefore, would prefer a trial with PO Levaquin (since it appears this patient had mild reaction to PO Cipro in the past) following colonoscopy. If he can tolerate PO Levaquin, would recommend discharge home with PO Levaquin x 2 weeks and PO Vancomycin x 6 week taper. We will continue to follow. Case reviewed and agree with aboves assessment
[2016-10-10] MEDS ORDERED: LIDOCAINE HCL 2% 2 ML VIAL (20MG/ML) ONE (14:50)
[2016-10-10] MEDS ORDERED: PROPOFOL IV EMULSION 10 MG/ML 20 ML VIAL IV ONE (14:50)
--- NOTE | 2016-10-10 14:50 | History & Physical Bridge Note ---
H&P Re-Evaluation Bridge Note: I have examined the patient, reviewed the History & Physical and in the interval since the performance of the History & Physical I have noted the following changes of clinical significance: for colonoscopy today No changes noted
--- NOTE | 2016-10-10 14:50 | Hospitalist Progress Note ---
Hospitalist Progress Note Date of Service Oct 10, 2016. (Estela Montes PA-C) Subjective Pt evaluation today including: conversation w/ patient, physical exam, chart review, lab review, review of inpatient medication list Patient seen and evaluated. No acute events overnight. Completed Go-Lytely. Continues to have frequent BMs. States his abdominal cramping is largely resolved. Awaiting colonoscopy this afternoon. Offered to update family yesterday and said "might as well wait until the scope" and offered to call them today and said they would be in to visit. He did give permission to talk with them. Discussed case with Donna Worley PA-C in regards to Abx coverage and possible conversion to po Levaquin to finish antibiotic course for abscess. Does have mild reaction to Cipro and can be instituted prior to D/C to monitor tolerance. Patient would like to return home and would like to go tomorrow as it is his birthday. Constitutional: No fever, No chills Eyes: No worsening of vision ENT: No nasal symptoms, No sore throat, No trouble swallowing Respiratory: No cough, No shortness of breath Cardiovascular: No chest pain Abdomen: + diarrhea, No pain, No nausea, No vomiting, No constipation Musculoskeletal: + swelling (chronic), No calf pain Male : No dysuria (Estela Montes, BONNIE) Medications Current Inpatient Medications Medications (Trade) Dose Ordered Sig/Baldo Route Start Time Stop Time Status Last Admin Dose Admin Acetaminophen (Tylenol Tab) 650 mg Q4H PRN PO 10/08/16 02:30 11/07/16 02:29 Al Hydrox/Mg Hydrox/Simethicone (Maalox Max Susp) 15 ml Q4H PRN PO 10/08/16 02:30 11/07/16 02:29 Magnesium Hydroxide (Milk Of Magnesia Susp) 30 ml Q6H PRN PO 10/08/16 02:30 11/07/16 02:29 Polyethylene (Miralax Powder Packet) 17 gm DAILY PRN PO 10/08/16 02:30 11/07/16 02:29 Ondansetron HCl (Zofran Inj) 4 mg Q6H PRN IV 10/08/16 02:30 11/07/16 02:29 Aztreonam 1000 mg/ Dextrose 110 ml @ 100 mls/hr Q8H IV 10/08/16 10:00 10/18/16 09:59 10/10/16 10:14 100 MLS/HR Atorvastatin Calcium (Lipitor Tab) 10 mg DAILY PO 10/08/16 09:00 11/07/16 08:59 10/10/16 08:51 10 MG Carvedilol (Coreg Tab) 3.125 mg AMHS PO 10/08/16 09:00 11/07/16 08:59 10/10/16 08:50 3.125 MG Digoxin (Lanoxin Tab) 0.125 mg DAILY@1600 PO 10/08/16 16:00 11/07/16 15:59 10/09/16 15:32 0.125 MG Levothyroxine Sodium (Synthroid Tab) 88 mcg DAILYBB PO 10/08/16 06:00 11/07/16 06:59 10/10/16 05:29 88 MCG Potassium Chloride (Klor-Con M10) 10 meq AMHS PO 10/08/16 09:00 11/07/16 08:59 10/10/16 08:51 10 MEQ Heparin Sodium/ Dextrose 500 ml @ 18 mls/hr Q24H PRN IV 10/08/16 03:15 11/07/16 03:14 Future Hold 10/10/16 08:13 18 MLS/HR Polymyxin/ Trimethoprim Sulfate (Polytrim Oph Soln) 1 drops QID OP 10/08/16 09:00 11/07/16 08:59 10/10/16 13:26 1 DROPS Sodium Chloride 1,000 ml @ 80 mls/hr [id number] IV 10/08/16 03:00 11/07/16 02:59 10/10/16 08:49 80 MLS/HR Ioversol (Optiray 320) 125 ml UD PRN IV 10/08/16 07:15 10/12/16 07:14 Vancomycin HCl (Vancomycin Oral Soln) 125 mg QID PO 10/08/16 09:00 10/22/16 08:59 10/10/16 13:26 125 MG Raspberry (Raspberry Syrup 5ml Cup) 5 ml QID PO 10/08/16 09:00 10/22/16 08:59 10/10/16 13:25 5 ML Metronidazole (Flagyl Tab) 500 mg TID PO 10/08/16 15:15 10/18/16 15:14 10/10/16 13:26 500 MG (Estela Montes PA-C) Objective Vital Signs Date Time Temp Pulse Resp B/P (MAP) Pulse Ox O2 Delivery O2 Flow Rate FiO2 10/10/16 14:26 36.5 68 20 135/70 (91) 97 Room Air 10/10/16 08:28 96 Room Air 10/10/16 08:20 36.5 62 22 158/88 (111) 96 Room Air 10/10/16 04:09 36.5 62 22 158/88 96 Room Air 10/10/16 00:10 Room Air 10/09/16 23:29 36.7 64 17 123/83 (96) 98 Room Air 10/09/16 20:47 130/76 (94) 10/09/16 20:00 Room Air 10/09/16 15:32 84 10/09/16 15:07 36.8 86 16 116/70 (85) 97 Room Air (Estela Montes PA-C) Physical Exam General Appearance: WD/WN, no apparent distress Eyes: sclerae normal ENT: hearing grossly normal Neck: supple, no JVD, trachea midline Respiratory/Chest: lungs clear, normal breath sounds, no respiratory distress, no accessory muscle use Cardiovascular: + irregularly irregular Abdomen: normal bowel sounds, non tender, soft Extremities: no calf tenderness, + pertinent finding (chronic edema and brown/ purple discoloration) Neurologic/Psychiatric: alert Skin: normal color, warm/dry (Estela Montes PA-C) Laboratory Results Last 24 Hours Test 10/10/16 07:18 Activated Partial Thromboplast Time 64.4 SECONDS Partial Thromboplastin Ratio 2.5 Sodium Level 142 mmol/L Potassium Level 3.9 mmol/L Chloride Level 107 mmol/L Carbon Dioxide Level 28 mmol/L Anion Gap 7.0 mmol/L Blood Urea Nitrogen 6 mg/dl Creatinine 0.77 mg/dl Est Creatinine Clear Calc Drug Dose 79.9 ml/min Estimated GFR () 104.3 Estimated GFR (Non- 90.0 BUN/Creatinine Ratio 8.3 Random Glucose 90 mg/dl Calcium Level 8.3 mg/dl Thyroid Stimulating Hormone (TSH) 1.300 uIu/ml (Estela Montes PA-C) Assessment and Plan 75 year old male presenting with apparently purulent bowel movements for 1 day. Patient did have recent exploration of rectal abscess with drain insertion on . There was also consideration, based on CT findings of rectal thickening that there may be an underlying diagnosis of IBD, though endoscopic evaluation is still pending. Certainly purulence from within the bowel lumen is also a possibility to consider. Purulent Stool with H/O Rectal Abscess S/P Surgical Exploration and Drain Insertion 09/19: Drain removed x 4 days ago - Rectal abscess cx - pseudomonas + with MDR - Aztreonam 2 g IV Q8H and Flagyl 500 mg TID - Consult Gen Surg - recommendations reviewed - no surgical intervention; may need evaluation from [place] colorectal surgeon - Consult GI - recommendations reviewed - colonoscopy today - Consult ID - recommendations reviewed/discussed with Donna Worley PA-C - Aztreonam and Flagyl may need 1-2 weeks (may convert to Levaquin po); continue Vanco and likely needs 6 week taper H/O C.Diff on Previous Admission (August): Oral vancomycin course x 14 days completed on previous admission - C. Diff this admission - positive - continues to have frequent BMs - Vancomycin 125 mg QID - plan for long taper Hypothyroidism: - Levothyroxine 88 mcg daily Coronary Artery Disease with Chronic Diastolic CHF: - Hold ASA at this time for colonoscopy can likely resume tomorrow - Atorvastatin 10 mg daily - Hold Spironolactone due to mild KADEEM Mild KADEEM: Baseline 0.8-0.9 - RESOLVED - NSS at 80 ml/hr Conjunctivitis of the Right Eye: - Poly-Trim Eye drops - Warm compresses to the eyes Persistent? Atrial Fibrillation: - Hold Coumadin and continue heparin gtt at this time. Will await findings of colonoscopy and plan to resume Coumadin - may need to wait since he will likely have biopsies performed - Carvedilol 3.125 mg BID - Digoxin 0.125 mg daily Bilateral Lower Extremity Swelling with Chronic Venous Dermatitis: Baseline - Wound care following - appreciate dressings of wounds DVT Prophylaxis: Heparin gtt Code Status: DO NOT RESUSCITATE Disposition: From home - PT/OT evaluations - patient has decline inpatient rehab in the past - may benefit from home PT services - Will await colonoscopy results and need for further intervention - will need Coumadin resumed - reports having electronic testing he performs at home Continued [facility] stay due to: multiple IV medications needed Discharge planning: home with home health (Estela Montes, PA-C) Attending Attestation & Admission Note: Pt seen/examined, chart reviewed, and care plan d/w ALEX Montes. I agree w/ the almeida components of her documentation. I saw the patient post-colonoscopy today. He was resting comfortably; minimal LLQ discomfort. Ate dinner (regular food) - tolerated such w/o worsening pain or nausea/emesis. Minimal diarrhea since the colonoscopy. VSS afebrile gen - nad mouth - MMM neck - no JVD heart - irregular, s1, s2 lungs - CTA b/l abd - soft, NT, BS+ ext - stasis changes b/l shins, no edema labs - bmp, TSH nl A/P: 1. perirectal abscess - cont aztreonam (previous cx with pseudomonas) and flagyl. Possible conversion to PO abx at d/c. Defer to ID. 2. ?undiagnosed IBD - colonoscopy today was normal grossly; biopsies taken. 3. c. diff colitis - vanco PO with prolonged taper. 4. FEN - stop fluids, repeat K and mag in am. 5. hypothyroidism - compensated. 6. DVT proph - SCDs. 7. a. fib - resume coumadin in am. Unnecessary for lovenox or heparin bridge. cleared for home by PT/OT but home health services recommended Devi GALINDO MD (Lester Galindo MD)
--- NOTE | 2016-10-10 15:28 | GI REPORT ---
Procedure Date: 10/10/2016 2:43 PM Procedure: Colonoscopy Indications: Abnormal CT of the GI tract Medicines: Propofol per Anesthesia Complications: No immediate complications. Estimated blood loss: Minimal. Estimated Blood Loss: Estimated blood loss was minimal. Procedure: Pre-Anesthesia Assessment: - Prior to the procedure, a History and Physical was performed, and patient medications and allergies were reviewed. The patient's tolerance of previous anesthesia was also reviewed. The risks and benefits of the procedure and the sedation options and risks were discussed with the patient. All questions were answered, and informed consent was obtained. Prior Anticoagulants: The patient has taken Coumadin (warfarin), last dose was 3 days prior to procedure. ASA Grade Assessment: III - A patient with severe systemic disease. After reviewing the risks and benefits, the patient was deemed in satisfactory condition to undergo the procedure. After I obtained informed consent, the scope was passed under direct vision. Throughout the procedure, the patient's blood pressure, pulse, and oxygen saturations were monitored continuously. The scope was introduced through the anus and advanced to the terminal ileum, with identification of the appendiceal orifice and IC valve. The colonoscopy was performed without difficulty. The patient tolerated the procedure well. The quality of the bowel preparation was good. Findings: The perianal and digital rectal examinations were normal. Pertinent negatives include normal sphincter tone, no palpable rectal lesions and no anal lesion or abnormality was detected. The perianal and digital rectal examinations were normal. Pertinent negatives include normal sphincter tone, no palpable rectal lesions and no anal lesion or abnormality was detected. The rectum, descending colon, ascending colon, ileum and colon (entire examined portion) appeared normal. Biopsies were taken with a cold forceps for histology. Estimated blood loss was minimal. Verification of patient identification for the specimen was done by the physician and blood bank laboratory technician using the patient's name and medical record number. The retroflexed view of the distal rectum and anal verge was normal and showed no anal or rectal abnormalities. Impression: - The rectum, descending colon, ascending colon, terminal ileum and entire examined colon are normal. Biopsied. - The distal rectum and anal verge are normal on retroflexion view. Recommendation: - Await pathology results. - Return patient to [facility] care. - Advance diet as tolerated. - Continue present medications. - Await pathology results. MD [facility] Faria MD 10/10/2016 3:28:07 PM This report has been signed electronically. Note Initiated On: 10/10/2016 2:43 PM I attest to the content of the Intraoperative Record and orders documented therein, exceptions below
--- NOTE | 2016-10-10 15:37 | Anesthesiology Progress Note ---
Anesthesia Post Op Note Date & Time Oct 10, 2016 at 15:37 Vital Signs Pain Intensity: 2 Vital Signs Past 12 Hours Date Time Temp Pulse Resp B/P (MAP) Pulse Ox O2 Delivery O2 Flow Rate FiO2 10/10/16 15:16 77 16 116/55 (75) 97 Room Air 10/10/16 14:26 36.5 68 20 135/70 (91) 97 Room Air 10/10/16 08:28 96 Room Air 10/10/16 08:20 36.5 62 22 158/88 (111) 96 Room Air 10/10/16 04:09 36.5 62 22 158/88 96 Room Air Notes Mental Status: alert / awake / arousable, participated in evaluation Pt Amnestic to Procedure: Yes Nausea / Vomiting: adequately controlled Pain: adequately controlled Airway Patency, RR, SpO2: stable & adequate BP & HR: stable & adequate Hydration State: stable & adequate Anesthetic Complications: no major complications apparent
[2016-10-10 16:15] VITALS: BP 168/73; PULSE 60; TEMP 36.3; O2SAT 96
[2016-10-10] MEDS: DIGOXIN 0.125 MG TAB PO SCH (17:10)
[2016-10-10] MEDS: WARFARIN SOD 5 MG TAB PO SCH (19:01)
[2016-10-10 21:20] VITALS: BP 128/81; PULSE 64
[2016-10-10 22:53] VITALS: BP 125/72; PULSE 77; TEMP 36.6; O2SAT 94
[2016-10-11] MEDS: AZTREONAM IV 1,000 MG in DEXTROSE 5% 100ML 100 ML IV SCH ×3 (01:59→19:36)
[2016-10-11] MEDS: LEVOTHYROXINE 88 MCG TAB PO SCH (05:40)
--- NOTE | 2016-10-11 06:00 | Surgery Progress Note ---
Surgery Progress Note Date of Service Oct 11, 2016. Objective Vital Signs: Date Time Temp Pulse Resp B/P (MAP) Pulse Ox O2 Delivery O2 Flow Rate FiO2 10/10/16 23:15 Room Air 10/10/16 22:53 36.6 77 18 125/72 (89) 94 Room Air 10/10/16 21:20 64 128/81 (97) 10/10/16 17:10 60 10/10/16 16:15 96 Room Air 10/10/16 16:15 36.3 60 18 168/73 (104) 96 Room Air 10/10/16 16:15 Room Air 10/10/16 15:48 36.5 61 20 145/82 (103) 99 Room Air 10/10/16 15:30 70 20 121/71 (88) 97 Room Air 10/10/16 15:16 77 16 116/55 (75) 97 Room Air 10/10/16 14:26 36.5 68 20 135/70 (91) 97 Room Air 10/10/16 08:28 96 Room Air 10/10/16 08:20 36.5 62 22 158/88 (111) 96 Room Air Laboratory Results: Results Past 24 Hours Test 10/10/16 07:18 10/11/16 04:44 Range/Units Activated Partial Thromboplast Time 64.4 21.0-31.0 SECONDS Partial Thromboplastin Ratio 2.5 Sodium Level 142 136-145 mmol/L Potassium Level 3.9 3.5-5.1 mmol/L Chloride Level 107 98-107 mmol/L Carbon Dioxide Level 28 21-32 mmol/L Anion Gap 7.0 3-11 mmol/L Blood Urea Nitrogen 6 7-18 mg/dl Creatinine 0.77 0.60-1.40 mg/dl Est Creatinine Clear Calc Drug Dose 79.9 ml/min Estimated GFR () 104.3 Estimated GFR (Non- 90.0 BUN/Creatinine Ratio 8.3 10-20 Random Glucose 90 70-99 mg/dl Calcium Level 8.3 8.5-10.1 mg/dl Thyroid Stimulating Hormone (TSH) 1.300 0.300-4.500 uIu/ml Assessment & Plan 10/11/16- colonoscopy without significant findings- no evidence of mucosal defect or scar tissue within anorectum. will follow up in office in 2-3 weeks- followup order written 10/10/16- being treated for persistent/ recurrent c diff. plan noted for colonoscopy today. cont to follow pt progress 10/10/16- being treated for persistent/ recurrent c diff. plan noted for colonoscopy today. cont to follow pt progress
[2016-10-11 07:34] VITALS: BP 122/70; PULSE 70; TEMP 36.5; O2SAT 95
[2016-10-11 08:51] VITALS: O2SAT 95
[2016-10-11 09:08] LABS: BUN/CREATININE RATIO 9.6 (10-20); CREATININE 0.77 mg/dl (0.60-1.40); MAGNESIUM 1.9 mg/dl (1.8-2.4); POTASSIUM 3.9 mmol/L (3.5-5.1)
[2016-10-11 09:17] LABS: CALCIUM 8.7 mg/dl (8.5-10.1)
[2016-10-11] MEDS: METRONIDAZOLE 500 MG TAB PO SCH ×3 (09:27→22:42)
[2016-10-11] MEDS: TRIMETHOPRIM/POLYMYXIN B OP SCH ×4 (09:27→22:44)
[2016-10-11] MEDS: ATORVASTATIN 10 MG TAB PO SCH (09:27)
[2016-10-11] MEDS: POTASSIUM CHLORIDE 10 MEQ TABCR PO SCH ×2 (09:28→22:43)
[2016-10-11 09:29] VITALS: BP 124/80; PULSE 77
[2016-10-11] MEDS: CARVEDILOL 3.125 MG TAB PO SCH ×2 (09:31→22:42)
[2016-10-11] MEDS: RASPBERRY SYRUP 5 ML UDP PO SCH ×4 (09:31→22:42)
[2016-10-11] MEDS: VANCOMYCIN HCL 125 MG/2.5ML SOLN PO SCH ×4 (09:35→22:42)
--- NOTE | 2016-10-11 13:50 | Infectious Disease Progress Nt ---
Progress Note Date of Service Oct 11, 2016. Subjective Pt evaluation today including: conversation w/ patient, physical exam, chart review, lab review, review of studies, review of inpatient medication list Patient underwent colonoscopy, which was ultimately unremarkable upon review of the operative record. The patient's creatinine today was 0.77. He continues on IV aztreonam, Flagyl, and oral vancomycin. All Other Systems: Reviewed and Negative Medications Current Inpatient Medications Medications (Trade) Dose Ordered Sig/Baldo Route Start Time Stop Time Status Last Admin Dose Admin Acetaminophen (Tylenol Tab) 650 mg Q4H PRN PO 10/08/16 02:30 11/07/16 02:29 Al Hydrox/Mg Hydrox/Simethicone (Maalox Max Susp) 15 ml Q4H PRN PO 10/08/16 02:30 11/07/16 02:29 Magnesium Hydroxide (Milk Of Magnesia Susp) 30 ml Q6H PRN PO 10/08/16 02:30 11/07/16 02:29 Polyethylene (Miralax Powder Packet) 17 gm DAILY PRN PO 10/08/16 02:30 11/07/16 02:29 Ondansetron HCl (Zofran Inj) 4 mg Q6H PRN IV 10/08/16 02:30 11/07/16 02:29 Aztreonam 1000 mg/ Dextrose 110 ml @ 100 mls/hr Q8H IV 10/08/16 10:00 10/18/16 09:59 10/11/16 09:36 100 MLS/HR Atorvastatin Calcium (Lipitor Tab) 10 mg DAILY PO 10/08/16 09:00 11/07/16 08:59 10/11/16 09:27 10 MG Carvedilol (Coreg Tab) 3.125 mg AMHS PO 10/08/16 09:00 11/07/16 08:59 10/11/16 09:31 3.125 MG Digoxin (Lanoxin Tab) 0.125 mg DAILY@1600 PO 10/08/16 16:00 11/07/16 15:59 10/10/16 17:10 0.125 MG Levothyroxine Sodium (Synthroid Tab) 88 mcg DAILYBB PO 10/08/16 06:00 11/07/16 06:59 10/11/16 05:40 88 MCG Potassium Chloride (Klor-Con M10) 10 meq AMHS PO 10/08/16 09:00 11/07/16 08:59 10/11/16 09:28 10 MEQ Heparin Sodium/ Dextrose 500 ml @ 18 mls/hr Q24H PRN IV 10/08/16 03:15 11/07/16 03:14 Future Hold 10/10/16 08:13 18 MLS/HR Polymyxin/ Trimethoprim Sulfate (Polytrim Oph Soln) 1 drops QID OP 10/08/16 09:00 11/07/16 08:59 10/11/16 13:20 1 DROPS Ioversol (Optiray 320) 125 ml UD PRN IV 10/08/16 07:15 10/12/16 07:14 Vancomycin HCl (Vancomycin Oral Soln) 125 mg QID PO 10/08/16 09:00 10/22/16 08:59 10/11/16 13:20 125 MG Raspberry (Raspberry Syrup 5ml Cup) 5 ml QID PO 10/08/16 09:00 10/22/16 08:59 10/11/16 13:19 5 ML Metronidazole (Flagyl Tab) 500 mg TID PO 10/08/16 15:15 10/18/16 15:14 10/11/16 13:21 500 MG Warfarin Sodium (Coumadin Tab) 5 mg DAILY@16 PO 10/10/16 18:30 11/09/16 18:29 10/10/16 19:01 5 MG Objective Vital Signs Date Time Temp Pulse Resp B/P (MAP) Pulse Ox O2 Delivery O2 Flow Rate FiO2 10/11/16 09:29 77 124/80 (95) 10/11/16 08:51 95 Room Air 10/11/16 08:00 Room Air 10/11/16 07:34 36.5 70 22 122/70 (87) 95 Room Air 10/10/16 23:15 Room Air 10/10/16 22:53 36.6 77 18 125/72 (89) 94 Room Air 10/10/16 21:20 64 128/81 (97) 10/10/16 17:10 60 10/10/16 16:15 96 Room Air 10/10/16 16:15 36.3 60 18 168/73 (104) 96 Room Air 10/10/16 16:15 Room Air 6/21/17 15:48 36.5 61 20 145/82 (103) 99 Room Air 10/10/16 15:30 70 20 121/71 (88) 97 Room Air 10/10/16 15:16 77 16 116/55 (75) 97 Room Air 10/10/16 14:26 36.5 68 20 135/70 (91) 97 Room Air Physical Exam General Appearance: WD/WN, no apparent distress Eyes: normal inspection, sclerae normal ENT: hearing grossly normal Neck: supple, trachea midline Respiratory/Chest: no respiratory distress, no accessory muscle use Extremities: normal range of motion Neurologic/Psychiatric: alert, normal mood/affect Skin: normal color Laboratory Results Last 24 Hours Test 10/11/16 08:10 Sodium Level 141 mmol/L Potassium Level 3.9 mmol/L Chloride Level 105 mmol/L Carbon Dioxide Level 25 mmol/L Anion Gap 11.0 mmol/L Blood Urea Nitrogen 7 mg/dl Creatinine 0.77 mg/dl Est Creatinine Clear Calc Drug Dose 78.7 ml/min Estimated GFR () 103.6 Estimated GFR (Non- 89.4 BUN/Creatinine Ratio 9.6 Random Glucose 90 mg/dl Calcium Level 8.7 mg/dl Magnesium Level 1.9 mg/dl Assessment and Plan (1) Rectal abscess Status: Acute (2) 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 Patient is currently on IV Aztreonam, Flagyl, and PO Vancomycin. He is anticipated to have colonoscopy this afternoon. Recommend continuing current therapy pending further workup/ improvement. Ultimately, this patient would prefer not to continue IV abx therapy, and he does not wish to go to SNF. If patient is going to be going home , he likely would need transition to easier outpatient abx therapy. Previously mentioned Levaquin, but Pseudomonas was resistant to Levaquin. Therefore, pending GI opinion of whether or not this patient needs further therapy, would consider IV Tobramycin once daily dosing. We will follow. Case reviewed and agree with above assessment.
[2016-10-11 14:56] VITALS: BP 141/65; PULSE 91; TEMP 36.5; O2SAT 97
[2016-10-11] MEDS: WARFARIN SOD 5 MG TAB PO SCH (17:10)
[2016-10-11] MEDS: DIGOXIN 0.125 MG TAB PO SCH (17:11)
--- NOTE | 2016-10-11 19:56 | GASTROENTEROLOGY PROGRESS NOTE ---
DATE: 10/11/2016 SUBJECTIVE: Mr. Doe is doing well following colonoscopy. There are no reports of rectal bleeding. I did speak with Dr. Galindo earlier today regarding his colon findings. At the present time, there is no evidence for proctitis or colitis throughout and random biopsies were pending at the time of this dictation. From a gastrointestinal point of view, the choice of antibiotics should be solely based on proper coverage for the perirectal abscess. In addition, there was no evidence for colitis pseudomembrane, or otherwise, and this will need to be assessed if there is any change that suggest return of C. diff. REVIEW OF SYSTEMS: Otherwise noncontributory. MEDICATIONS: He is currently on vancomycin orally, oral Flagyl. He is on warfarin for atrial fibrillation. PHYSICAL EXAMINATION: Unremarkable. VITAL SIGNS: Today, he is afebrile, 36.5, blood pressure 141/65 and 97% on room air, respirations 20, heart rate 91. ABDOMEN: Soft, nontender, nondistended. Good bowel sounds. EXTREMITIES: Without edema. IMPRESSION: The patient with no evidence for active colitis endoscopically, biopsies pending. Would continue vancomycin and Flagyl for the C. difficile and for other anaerobic coverage. From a gastrointestinal standpoint, there are no specific antibiotics required for this other than to consider a taper of vancomycin to minimize the chance of recurrent C. difficile. Further recommendations to follow up once biopsies available. Infectious Disease is in the process of deciding on antibiotic coverage, suitable for his perirectal abscess.
[2016-10-11 22:37] VITALS: BP 112/61; PULSE 86; TEMP 36.9; O2SAT 95
--- NOTE | 2016-10-12 00:06 | Progress Note ---
Subjective Date of Service: Oct 11, 2016. Subjective Pt evaluation today including: conversation w/ patient, conversation w/ family (son at bedside), physical exam, chart review, lab review, review of studies, conversation w/ [employer] consultant (ID), review of inpatient medication list Pain: denies PO Intake: eating well Voiding: no voiding problems anxious to go home he reports it [birth year] today stool is forming; no longer loose mucous much better denies nausea, emesis denies sob, chest pain Problem List Medical Problems: (1) C. difficile colitis Status: Acute (2) Diarrhea Status: Acute (3) Fistula Status: Acute (4) Perirectal abscess Status: Acute (5) Perirectal abscess Status: Acute (6) Perirectal cellulitis Status: Acute (7) Proctitis Status: Acute (8) Rectal abscess Status: Acute (9) Subtherapeutic international normalized ratio (INR) Status: Acute (10) Tremor Status: Acute (11) Urinary retention Status: Acute (12) Weakness Status: Acute Review of Systems Constitutional: No fever Respiratory: No shortness of breath Cardiac: No chest pain Objective Vital Signs Date Time Temp Pulse Resp B/P (MAP) Pulse Ox O2 Delivery O2 Flow Rate FiO2 10/11/16 22:37 36.9 86 18 112/61 (78) 95 Room Air 10/11/16 17:11 72 10/11/16 14:56 36.5 91 20 141/65 (90) 97 10/11/16 09:29 77 124/80 (95) 10/11/16 08:51 95 Room Air 10/11/16 08:00 Room Air 10/11/16 07:34 36.5 70 22 122/70 (87) 95 Room Air Physical Exam General Appearance: no apparent distress ENT: pharynx normal (MMM) Neck: no JVD Respiratory/Chest: lungs clear, no respiratory distress, no accessory muscle use Cardiovascular: no gallop, no murmur, + irregularly irregular Abdomen: normal bowel sounds, non tender, soft, no organomegaly Extremities: no pedal edema Neurologic/Psychiatric: alert, oriented x 3 Skin: + pertinent finding (stasis changes b/l legs) Laboratory Results Last 24 Hours Test 10/11/16 08:10 Sodium Level 141 mmol/L Potassium Level 3.9 mmol/L Chloride Level 105 mmol/L Carbon Dioxide Level 25 mmol/L Anion Gap 11.0 mmol/L Blood Urea Nitrogen 7 mg/dl Creatinine 0.77 mg/dl Est Creatinine Clear Calc Drug Dose 78.7 ml/min Estimated GFR () 103.6 Estimated GFR (Non- 89.4 BUN/Creatinine Ratio 9.6 Random Glucose 90 mg/dl Calcium Level 8.7 mg/dl Magnesium Level 1.9 mg/dl Assessment and Plan 76yo male with: 1. perirectal abscess - s/p I/D 09/19/16. Culture from that procedure grew pseudomonas - resistant to fluoroquinolones. He remains on Aztreonam 2 g IV Q8H and Flagyl 500 mg TID. Appreciate gen surg consultation - no surgery recommended at this time. Appreciate GI consultation. He is s/p colonoscopy with no gross evidence of IBD. Appreciate ID consultation - type & length of abx to be determined. Will d/w ID and gen surg in am. 2. c. diff colitis - recurrent despite Rx with vanco in August. Plan for prolonged vanco taper. Clinically improved. 3. a. fib - rates controlled, coumadin resumed, INR in am. 4. hypothyroidism - compensated; cont levothyroxine. 5. chronic diastolic CHF - compensated. 6. CAD - no ischemic symptoms at this time. 7. KADEEM - resolved. Cr now at baseline. 8. chronic venous stasis dermatitis - appreciate wound care consult & recs. son updated today disposition depends on ID recommendations for antibiotics Continued [facility] stay due to: multiple IV medications needed Discharge planning: home with home health
[2016-10-12] MEDS: AZTREONAM IV 1,000 MG in DEXTROSE 5% 100ML 100 ML IV SCH ×3 (02:16→18:00)
[2016-10-12] MEDS: LEVOTHYROXINE 88 MCG TAB PO SCH (05:49)
[2016-10-12 07:27] VITALS: BP 146/85; PULSE 86; TEMP 36.4; O2SAT 95
[2016-10-12 07:47] LABS: INR 1.4 (0.9-1.1); PROTHROMBIN TIME (PATIENT) 14.9 SECONDS (9.0-12.0)
[2016-10-12 08:06] LABS: BUN/CREATININE RATIO 14.9 (10-20); CALCIUM 8.8 mg/dl (8.5-10.1); CREATININE 0.86 mg/dl (0.60-1.40); POTASSIUM 3.8 mmol/L (3.5-5.1)
[2016-10-12] MEDS: CARVEDILOL 3.125 MG TAB PO SCH (08:42)
[2016-10-12] MEDS: METRONIDAZOLE 500 MG TAB PO SCH ×2 (08:42→13:15)
[2016-10-12] MEDS: VANCOMYCIN HCL 125 MG/2.5ML SOLN PO SCH ×3 (08:43→16:46)
[2016-10-12] MEDS: TRIMETHOPRIM/POLYMYXIN B OP SCH ×3 (08:43→16:48)
[2016-10-12] MEDS: POTASSIUM CHLORIDE 10 MEQ TABCR PO SCH (08:43)
[2016-10-12] MEDS: ATORVASTATIN 10 MG TAB PO SCH (08:43)
[2016-10-12] MEDS: RASPBERRY SYRUP 5 ML UDP PO SCH ×3 (08:43→16:47)
[2016-10-12] MEDS ORDERED: SPIRONOLACTONE 25 MG TAB PO SCH (09:00)
--- NOTE | 2016-10-12 15:32 | DIAGNOSTIC IMAGING REPORT ---
CHEST ONE VIEW PORTABLE CLINICAL HISTORY: picc placement right COMPARISON STUDY: 06/20/2016 FINDINGS: The heart remains mildly enlarged. There is no failure. There is no focal pulmonary consolidation. There are no pleural effusions. There is been interval placement of a right-sided PICC catheter. The tip projects over the superior vena cava.[ IMPRESSION: Interval placement of a right-sided PICC catheter. The tip projects over the superior vena cava. Electronically signed by: Keaton Ruiz M.D. 10/12/2016 3:31 PM Dictated Date/Time: 10/12/2016 3:30 PM
--- NOTE | 2016-10-12 16:24 | Infectious Disease Progress Nt ---
Progress Note Date of Service Oct 12, 2016. Subjective Pt evaluation today including: conversation w/ patient, physical exam, chart review, lab review, review of studies, conversation w/ framing consultant, review of inpatient medication list Patient appears to be doing well overall. He is feeling better. I did discuss this patient with Dr. Galindo today, and feel that the patient likely can transition to IV cefepime or IV tobramycin if he is going to be going home with continued treatment. The patient states that his bowels have improved. He continues to loose stools on an off. His creatinine today was 0.86. All Other Systems: Reviewed and Negative Medications Current Inpatient Medications Medications (Trade) Dose Ordered Sig/Baldo Route Start Time Stop Time Status Last Admin Dose Admin Acetaminophen (Tylenol Tab) 650 mg Q4H PRN PO 10/08/16 02:30 11/07/16 02:29 Al Hydrox/Mg Hydrox/Simethicone (Maalox Max Susp) 15 ml Q4H PRN PO 10/08/16 02:30 11/07/16 02:29 Magnesium Hydroxide (Milk Of Magnesia Susp) 30 ml Q6H PRN PO 10/08/16 02:30 11/07/16 02:29 Polyethylene (Miralax Powder Packet) 17 gm DAILY PRN PO 10/08/16 02:30 11/07/16 02:29 Ondansetron HCl (Zofran Inj) 4 mg Q6H PRN IV 10/08/16 02:30 11/07/16 02:29 Aztreonam 1000 mg/ Dextrose 110 ml @ 100 mls/hr Q8H IV 10/08/16 10:00 10/18/16 09:59 10/12/16 10:11 100 MLS/HR Atorvastatin Calcium (Lipitor Tab) 10 mg DAILY PO 10/08/16 09:00 11/07/16 08:59 10/12/16 08:43 10 MG Carvedilol (Coreg Tab) 3.125 mg AMHS PO 10/08/16 09:00 11/07/16 08:59 10/12/16 08:42 3.125 MG Digoxin (Lanoxin Tab) 0.125 mg DAILY@1600 PO 10/08/16 16:00 11/07/16 15:59 10/11/16 17:11 0.125 MG Levothyroxine Sodium (Synthroid Tab) 88 mcg DAILYBB PO 10/08/16 06:00 11/07/16 06:59 10/12/16 05:49 88 MCG Potassium Chloride (Klor-Con M10) 10 meq AMHS PO 10/08/16 09:00 11/07/16 08:59 10/12/16 08:43 10 MEQ Heparin Sodium/ Dextrose 500 ml @ 18 mls/hr Q24H PRN IV 10/08/16 03:15 11/07/16 03:14 Future Hold 10/10/16 08:13 18 MLS/HR Polymyxin/ Trimethoprim Sulfate (Polytrim Oph Soln) 1 drops QID OP 10/08/16 09:00 11/07/16 08:59 10/12/16 13:15 1 DROPS Vancomycin HCl (Vancomycin Oral Soln) 125 mg QID PO 10/08/16 09:00 10/22/16 08:59 10/12/16 13:14 125 MG Raspberry (Raspberry Syrup 5ml Cup) 5 ml QID PO 10/08/16 09:00 10/22/16 08:59 10/12/16 13:14 5 ML Metronidazole (Flagyl Tab) 500 mg TID PO 10/08/16 15:15 10/18/16 15:14 10/12/16 13:15 500 MG Warfarin Sodium (Coumadin Tab) 5 mg DAILY@16 PO 10/10/16 18:30 11/09/16 18:29 10/11/16 17:10 5 MG Spironolactone (Aldactone Tab) 25 mg BID PO 10/12/16 09:00 11/11/16 08:59 10/12/16 08:42 25 MG Objective Vital Signs Date Time Temp Pulse Resp B/P (MAP) Pulse Ox O2 Delivery O2 Flow Rate FiO2 10/12/16 08:14 Room Air 10/12/16 07:27 36.4 86 18 146/85 (105) 95 Room Air 10/12/16 01:00 Room Air 10/11/16 22:37 36.9 86 18 112/61 (78) 95 Room Air 10/11/16 17:11 72 Physical Exam General Appearance: WD/WN, no apparent distress Eyes: normal inspection, sclerae normal ENT: hearing grossly normal Neck: supple, trachea midline Respiratory/Chest: no respiratory distress, no accessory muscle use Cardiovascular: regular rate, rhythm Extremities: normal range of motion Neurologic/Psychiatric: alert, normal mood/affect Skin: normal color, warm/dry, no rash Laboratory Results Last 24 Hours Test 10/12/16 07:15 Prothrombin Time 14.9 SECONDS Prothromb Time International Ratio 1.4 Sodium Level 139 mmol/L Potassium Level 3.8 mmol/L Chloride Level 103 mmol/L Carbon Dioxide Level 27 mmol/L Anion Gap 9.0 mmol/L Blood Urea Nitrogen 13 mg/dl Creatinine 0.86 mg/dl Est Creatinine Clear Calc Drug Dose 70.5 ml/min Estimated GFR () 99.0 Estimated GFR (Non- 85.4 BUN/Creatinine Ratio 14.9 Random Glucose 99 mg/dl Calcium Level 8.8 mg/dl Assessment and Plan (1) Rectal abscess Status: Acute (2) 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 Patient is currently on IV Aztreonam, Flagyl, and PO Vancomycin. Patient likely will transition to IV cefepime or IV tobramycin pending insurance coverage, or he may transitioned to [facility] with IV antibiotic therapy. Either way, the patient should continue IV therapy for Pseudomonas along with p.o. Flagyl and p.o. vancomycin. He will need a repeat CT scan of the abdomen/pelvis prior to discontinuation of IV antibiotic therapy. At this time, recommend completing at least 2 weeks of IV antibiotic therapy pending repeat scan. He will need follow-up with Infectious Disease as an outpatient. Case reviewed and agree wiht above assessment.
[2016-10-12] MEDS: WARFARIN SOD 5 MG TAB PO SCH (16:49)
[2016-10-12 16:53] VITALS: PULSE 76; PULSE 82
[2016-10-12] MEDS: DIGOXIN 0.125 MG TAB PO SCH (16:55)
[2016-10-12] MEDS ORDERED: VNCS125 PO (18:15)
[2016-10-12] MEDS ORDERED: AZTR1INJ5 IV (18:15)
[2016-10-12] MEDS ORDERED: MTR500 PO (18:15)
--- NOTE | 2016-10-12 18:24 | Discharge Instructions ---
Discharge Instructions Date of Service Oct 12, 2016. Admission Reason for Admission: Perirectal abscess Discharge Discharge Diagnosis / Problem: Perirectal abscess Discharge Goals Goal(s): Improve disease control, Learn about illness, Diagnostic testing, Therapeutic intervention Activity Recommendations Activity Level: Assistance Required Therapies: Physical Therapy, Occupational Therapy . Additional Information Patient informed of condition: Yes Advance Directives: Yes DNR: Yes Level of Care: Acute Rehab Communicable Disease: Yes Prognosis: Stable Oxygen at (LPM): none Jacob Catheter: No Instructions / Follow-Up Instructions / Follow-Up See the following - 1. Dr. Marcellus Gonzalez - general surgery - in 2-3 weeks. 2. ALEX Keller - infectious disease - in 1-2 weeks. 3. PCP within 5-7 days of discharge from [facility]. Current Hospital Diet Patient's current hospital diet: Low Sodium Diet (2gm Na) Discharge Diet Recommended Diet: AHA Diet (Heart Healthy) Procedures Procedures Performed: CAT scan of the abdomen/pelvis - perirectal abscess. Colonoscopy - essentially normal. Pending Studies Studies pending at discharge: no Physician Orders On Transfer Special Precautions: contact - due to c. diff IV Therapy: IV aztreonam 1gm via PICC line q8h x minimum of 14 days. Vital Signs: per routine Additional Orders: 1. DAILY INR - report results to medical laboratory manager. Start AM of 10/13/16. 2. BMP in 3-4 days for stability. POLST Discussion: Not Applicable Medical Emergencies . Who to Call and When: Medical Emergencies: If at any time you feel your situation is an emergency, please call 911 immediately. . Non-Emergent Contact Non-Emergency issues call your: Surgeon Call Non-Emergent contact if: temperature is above 100.5, your pain is not controlled, your pain is worsening, your pain is unusual for you, your pain is concerning you, wound has increased drainage, wound has increased redness, wound has increased pain, you have any medication questions . . "Provider Documentation" section prepared by Lester Galindo. . Core Measure Problem Core Measures: None
[2016-10-12 18:28] VITALS: BP 146/85; PULSE 76; TEMP 36.4; O2SAT 95
--- NOTE | 2016-10-16 22:50 | Discharge Summary ---
Discharge Summary Date of Service Oct 16, 2016. Discharge Summary Admission Date: Oct 08, 2016 at 02:20 Discharge Date: Oct 12, 2016 Discharge Disposition: Rehab ([facility]) Principal Diagnosis: perirectal abscess Problems/Secondary Diagnoses: (1) Atrial fibrillation (2) CAD (coronary artery disease) s/p stent x 1 at [facility] [place] ~ 200 (3) HTN (hypertension) (4) Hypothyroidism (5) History of colon resection 2nd to diverticulitis (6) c. diff colitis (7) acute kidney injury - resolved (8) chronic diastolic CHF (9) chronic venous stasis dermatitis Procedures: 1. CT abd/pelvis - IMPRESSION: 1. Slightly improved right perirectal collection. 2. No current well-defined fistulous tract. 3. Moderate stable rectal wall thickening. 2. PICC line - right arm 3. colonoscopy - Mendoza Kowalski MD - entirely normal. Consultations: 1. infectious disease - ALEX Keller 2. general surgery - Marcellus Gonzalez MD 3. gastroenterology - Mednoza Kowalski MD 4. PT, OT 5. enterostomy Medication Reconciliation New Medications: Aztreonam (Aztreonam) 1 Gm Inj 1 GM IV Q8H for 14 Days, 0 Refills Metronidazole (Metronidazole) 500 Mg Tab 500 MG PO TID for 14 Days, #42 TAB 0 Refills Vancomycin HCl (Vancomycin HCl) 125 Mg/2.5 Ml Susp 125 MG PO QID for 14 Days Continued Medications: Atorvastatin (Lipitor) 10 Mg Tab 10 MG PO DAILY, TAB Carvedilol (Coreg) 3.125 Mg Tab 3.125 MG PO AMHS, TAB Digoxin (Digoxin) 0.125 Mg Tab 0.125 MG PO QPM Levothyroxine Sodium (Levothyroxine Sodium) 88 Mcg Tab 88 MCG PO DAILY, 5 Refills Potassium Chloride (Klor-Con Ext Rel) 8 Meq Tabcr 8 MEQ PO AMHS Spironolactone (Spironolactone) 25 Mg Tab 25 MG PO AMHS Warfarin Sod (Jantoven) 2 Mg Tab 2 MG PO Q2D, TAB STARTS ON SATURDAY WITH 4MG THEN ALTERNATES DOSES Warfarin Sod (Jantoven) 4 Mg Tab 4 MG PO Q2D, TAB STARTS ON WITH 4MG THEN ALTERNATES DOSES Referrals At Discharge Follow up Referrals: Infectious Disease - Within 1-2 Weeks with Donna Worley PA-C Surgery Referral - Within 2 Weeks with Marcellus Gonzalez M.D. Discharge Exam Physical Exam: General Appearance: no apparent distress ENT: pharynx normal Neck: no JVD Respiratory/Chest: lungs clear, no respiratory distress, no accessory muscle use Cardiovascular: no gallop, no murmur, normal peripheral pulses, + irregularly irregular Abdomen / GI: normal bowel sounds, non tender, soft, no organomegaly Extremities: no pedal edema Neurologic/Psychiatric: alert, oriented x 3 Skin: + pertinent finding (stasis changes b/l legs ) Hospital Course (1) Rectal abscess (2) History of Clostridium difficile infection (3) Atrial fibrillation (4) CAD (coronary artery disease) (5) Acute kidney injury (6) HTN (hypertension) (7) Hypothyroidism (8) History of colon resection (9) History of cataract surgery (10) Chronic venous stasis dermatitis of both lower extremities (11) Conjunctivitis, right eye HISTORY OF PRESENT ILLNESS: 75 year old male who presented to the [facility] ED with his son with complaints of 5- 6 bowel movements filled with mucous/pus for less than 24 hours. The patient denied blood in the stool or dark tarry stool. He also noted that at baseline he has low grade abdominal pain with bowel movements but this has gotten worse in the past 1 day. He described a lower abdominal cramping pain that felt like "someone twisting my stomach side to side". He denied any nausea or vomiting. Denied any fevers or sweats. He reported chills at baseline. His appetite had been normal. He also added that he had been much weaker for the past 3-4 days but was ambulating per baseline prior to that. Of note the patient was recently discharged from [facility] on 09/20 for diarrhea. On that admission he was noted to have a adelina-rectal abscess. He was taken to the OR for exploration on 09/19. A Lui drain was placed and he was discharged home with outpatient surgery follow-up. His son notes that the drain was taken out in the Gen Surg office [address] also had findings concerning for possible colitis and he was thus referred for GI follow-up, which he was suppose to have done this week. He was also noted to be C.diff positive on that visit and was discharged on a 10 day course of oral vancomycin, for which he completed the course. HOSPITAL COURSE: 1. perirectal abscess - when the patient underwent I & D of the abscess on 09/19 his intra-op culture grew pseudomonas. Unfortunately it was resistant to all oral antibiotics. During this stay he received Aztreonam 2 g IV Q8H and Flagyl 500mg PO TID. He was seen in consult by general surgery, gastroenterology, and infectious disease. Dr. Gonzalez from surgery recommended conservative management with antibiotics. Dr. Kowalski from gastroenterology recommended colonoscopy to exclude IBD as the cause of the adelina-rectal abscess. Fortunately the colonoscopy was normal. Infectious disease recommended PICC line placement and treatment with AT LEAST 2 WEEKS OF IV ANTIBIOTIC THERAPY. At time of discharge he will continue on IV aztreonam for at least 2 weeks ( aztreonam is being employed due to multiple antibiotic allergies). He will also continue on oral flagyl. He will need a repeat CT scan of the abdomen/pelvis prior to discontinuation of IV antibiotic therapy. Follow-up with Dr. Gonzalez from general surgery and with ALEX Keller - infectious disease - within 1-2 weeks is advised. 2. c. diff colitis - recurrent despite treatment with oral vancomycin in August. Thus, he will complete a slow vancomycin taper after discharge. At time of transfer to [facility] his diarrhea was significantly improved. Infectious disease will assist in management of this problem. 3. a. fib - rates were controlled while hospitalized. He will continue on daily coumadin. INR on day of discharge was 1.4. While his INR is trending up recommend daily INR checks. All other medical problems remained stable while hospitalized. Total Time Spent: Greater than 30 minutes This includes examination of the patient, discharge planning, medication reconciliation, and communication with other providers. Discharge Instructions Please refer to the electronic Patient Visit Report (Discharge Instructions) for additional information. Follow-Up 1. Dr. Marcellus Gonzalez - general surgery - in 2-3 weeks. 2. ALEX Keller - infectious disease - in 1-2 weeks. 3. PCP within 5-7 days of discharge from [facility]. Additional Copies To Isaac Still MD; Donna Worley PA-C; Marcellus Gonzalez M.D.; [facility]; Mendoza Kowalski M.D.
== END 2016-10-12 18:40 | DRG 372 ==
LOC: C.EDB 22:55 → C.MSN 10-08 02:20 → ENRESERV 10-08 02:27
PROVIDERS: ADMIT Student in an Organized Health Care Education/Training Program; ATTEND Internal Medicine
PROC: 0DBE8ZX Excision of Large Intestine, Via Natural or Artificial Opening Endoscopic, Diagnostic (ICD-10-PCS; principal; 2016-10-10 14:21)
PROC: 02HV33Z Insertion of Infusion Device into Superior Vena Cava, Percutaneous Approach (ICD-10-PCS; 2016-10-12)
DX: A04.7 Enterocolitis due to Clostridium difficile (principal); I50.32 Chronic diastolic (congestive) heart failure; N17.9 Acute kidney failure, unspecified; I48.1 Persistent atrial fibrillation; K61.1 Rectal abscess; B96.5 Pseudomonas (aeruginosa) (mallei) (pseudomallei) as the cause of diseases classified elsewhere; I25.10 Atherosclerotic heart disease of native coronary artery without angina pectoris; E03.9 Hypothyroidism, unspecified; I10 Essential (primary) hypertension; H10.9 Unspecified conjunctivitis; I87.2 Venous insufficiency (chronic) (peripheral); Z66 Do not resuscitate; Z79.01 Long term (current) use of anticoagulants; Z79.899 Other long term (current) drug therapy; Z86.19 Personal history of other infectious and parasitic diseases; Z95.5 Presence of coronary angioplasty implant and graft

== ENCOUNTER 2016-11-11 20:12 | Emergency (ER) | payer OTHER ==
[~2016-11-11] VITALS: Ht 170.2 cm; Wt 73.0 kg
[~2016-11-11 20:12] MED LIST changes: -ATOR10TA82 PO; +ATOR10TA88 PO; +AZTR1INJ5 IV; -CLC100 PO; +MTR500 PO; -VANC5CAP PO; +VNCS125 PO
[2016-11-11 20:15] VITALS: TEMP 36.6; Ht 170.2 cm; Wt 73.0 kg
[2016-11-11] MEDS ORDERED: ACETAMINOPHEN 500 MG TAB PO STA (20:26)
--- NOTE | 2016-11-11 20:29 | EMERGENCY ROOM VISIT NOTE ---
History Report prepared by Esther: Gonsalo Richter Under the Supervision of: Dr. Joel Blanco M.D. First contact with patient: 20:19 Chief Complaint: FALL Stated Complaint: FALLEN, HURT HEAD, ARM NECK History of Present Illness The patient is a 76 year old male who presents to the Emergency Room following a falling episode that occurred at 1300 this afternoon, 7.5 hours prior to arrival. The patient states that he was attempting to sit down in his chair when he lost balance and fell directly forward onto his face. The fall was witnessed by the patient's son, who agrees that he fell directly forward. He did not catch himself, and impacted his forehead directly. He is also complaining of pain in his left wrist, and soreness in his neck. He denies any headache, aside from the head pain from the abrasion. He also denies any back pain, lower extremity injuries, or pain in the right upper extremity. The patient is on Coumadin and had his INR checked on Saturday, 5 days ago. Recent INR level was 1.8 per patient. The patient does not want a tetanus booster. Source of History: patient, family Onset: 7.5 hours [employer] Position: head Quality: other (Traumatic Fall) Associated Symptoms: + neck pain, No headache, No back pain Note: Left wrist pain Review of Systems See HPI for pertinent positives & negatives. A total of 10 systems reviewed and were otherwise negative. Past Medical & Surgical Medical Problems: (1) Acute kidney injury (2) Atrial fibrillation (3) CAD (coronary artery disease) (4) Chronic venous stasis dermatitis of both lower extremities (5) Conjunctivitis, right eye (6) History of Clostridium difficile infection (7) HTN (hypertension) (8) Hypothyroidism (9) Perianal fistula Surgical Problems: (1) History of cataract surgery (2) History of colon resection Family History Cancer Diabetes mellitus Gallbladder disease Heart disease Kidney disease Kidney stones Lung disease Social History Smoking Status: Never Smoker Drug Use: none Marital Status: Housing Status: lives with family Occupation Status: retired Current/Historical Medications Scheduled Atorvastatin (Lipitor), 10 MG PO DAILY Carvedilol (Coreg), 3.125 MG PO AMHS Digoxin (Digoxin), 0.125 MG PO QPM Levothyroxine Sodium (Levothyroxine Sodium), 88 MCG PO DAILY Metronidazole (Metronidazole), 500 MG PO TID Potassium Chloride (Klor-Con Ext Rel), 8 MEQ PO AMHS Spironolactone (Spironolactone), 25 MG PO AMHS Warfarin Sod (Jantoven), 2 MG PO HS Allergies Coded Allergies: Amoxicillin (Verified Allergy, Intermediate, RASH, ITCHING, 11/11/16) Cephalexin (Verified Allergy, Intermediate, RASH,ITCHING, 11/11/16) Ciprofloxacin (Verified Allergy, Intermediate, RASH, 11/11/16) Patient becomes itchy/arm becomes reddened Clavulanic Acid (Verified Allergy, Intermediate, RASH, ITCHING, 11/11/16) Penicillins (Verified Allergy, Intermediate, AUGMENTIN-RASH,ITCHING, ) Morphine (Verified Allergy, Mild, RASH, 11/11/16) Physical Exam Vital Signs Date Time Temp Pulse Resp B/P (MAP) Pulse Ox O2 Delivery O2 Flow Rate FiO2 11/11/16 21:40 68 18 142/81 99 Room Air 11/11/16 20:15 36.6 84 18 166/90 96 Room Air Physical Exam GENERAL: Patient is in no acute distress. HEENT: There is a large abrasion to the central forehead, no bony stepoff appreciated, no active bleeding. There is a subtle abrasion to the bridge of the nose, no evidence for underlying fracture. There is no other facial trauma noted. No scalp hematoma present. Mucous membranes are moist. NECK: The neck is tender diffusely over the entire cervical spine. There are no bony step-offs. Muscles are tender posteriorly as well. LUNGS: Clear to auscultation bilaterally, no wheeze, no rhonchi, breath sounds equal. HEART: An irregular rhythm was appreciated. No murmurs. normal rate. ABDOMEN: Soft, nontender, bowel sounds positive, no hernias, no peritonitis. EXTREMITIES: There is a little swelling and tenderness to palpation along the ulnar aspect of the left wrist, without gross deformity. The left elbow, shoulder, and hand are non-tender. No evidence for LE trauma or RUE trauma. NEUROLOGIC: Oriented x 3, no acute motor or sensory deficits, no focal weakness. SKIN: No rash, no jaundice, no diaphoresis. Medical Decision & Procedures ER Provider Diagnostic Interpretation: Radiology results as stated below per my review and radiologist interpretation: CT OF THE CERVICAL SPINE CLINICAL HISTORY: Neck pain status post trauma COMPARISON STUDY: No previous studies for comparison. CT DOSE: TECHNIQUE: CT scan of the cervical spine was performed from the skull base to the thoracic inlet. Images are reviewed in the axial, sagittal, and coronal planes. IV contrast was not administered for this examination. A dose lowering technique was utilized adhering to the principles of ALARA. FINDINGS: The visualized portions of the lung apices reveal no evidence of pneumothorax. There are extensive carotid bifurcation atheromatous calcifications. The prevertebral soft tissues are normal. No fractures or subluxations are visualized. There are multilevel degenerative changes. There are mild endplate erosive changes the C6-7 level. IMPRESSION: No evidence of acute fracture or traumatic subluxation. Electronically signed by: Keaton Ruiz M.D. 11/11/2016 9:12 PM Dictated Date/Time: 11/11/2016 9:[address] HEAD WITHOUT CONTRAST (CT) CLINICAL HISTORY: Head trauma. Head pain. Patient on Coumadin. COMPARISON STUDY: No previous studies for comparison. TECHNIQUE: Axial CT of the brain is performed from the vertex to the skull base. IV contrast was not administered for this examination. A dose lowering technique was utilized adhering to the principles of ALARA. CT DOSE: 1086.70 mGy.cm FINDINGS: No intra or extra-axial mass lesions are visualized. There is no CT evidence of acute cortical infarction. There is no evidence of midline shift. There is no acute hemorrhage. No calvarial fractures are visualized. There are minimal white matter hypodensities likely on a small vessel basis. There is no evidence of pathologic ventricular dilatation. There is opacification of the left frontal sinus. There is a frontal scalp hematoma. IMPRESSION: Frontal scalp hematoma. No acute intracranial findings. Electronically signed by: Keaton Ruiz M.D. 11/11/2016 9:09 PM Dictated Date/Time: 11/11/2016 9:07 PM LEFT WRIST MIN 3 VIEWS ROUTINE CLINICAL HISTORY: Left wrist pain status post trauma COMPARISON: None. DISCUSSION: 4 views are provided for interpretation. The bones are mildly osteopenic. There are vascular calcifications present. There is chondrocalcinosis. There are no acute fractures. There is an old corticated radial styloid chip fracture. IMPRESSION: No acute fractures or dislocations. Electronically signed by: Keaton Ruiz M.D. 11/11/2016 9:06 PM Dictated Date/Time: 11/11/2016 9:05 PM Laboratory Results Test 11/11/16 20:45 Prothrombin Time 15.3 SECONDS (9.0-12.0) Prothromb Time International Ratio 1.4 (0.9-1.1) Activated Partial Thromboplast Time 31.8 SECONDS (21.0-31.0) Partial Thromboplastin Ratio 1.2 Laboratory results reviewed by me. Medications Administered Medications (Trade) Dose Ordered Sig/Baldo Route Start Time Stop Time Status Last Admin Dose Admin Acetaminophen (Tylenol Tab) 1,000 mg NOW STAT PO 11/11/16 20:26 11/11/16 20:29 DC 11/11/16 20:35 1,000 MG ED Course 2019: The patient was evaluated in room C1. A complete history and physical exam was performed. 2025: Ordered Acetaminophen 1000 mg PO. 2126: Reevaluated the patient. Discussed results and discharge instructions: He verbalized understanding and agreement. The patient is ready for discharge. Medical Decision Differential Diagnosis includes; Intracranial bleeding, skull fracture, cervical fracture vs strain, left forearm/wrist fracture vs strain, back trauma , abdominal trauma, lower extremity trauma. The patient presents with a head injury after falling forward. He did not lose consciousness. He has a headache and an abrasion to his scalp. He has some neck pain and left wrist pain. He denies back pain, chest pain or abdominal pain. He has no pain in the lower extremities. He has been in baseline health. He does take Coumadin. The patient's INR is 1.4-low for someone on Coumadin. Brain CT shows no acute bleed or mass effect, no skull fracture. C-spine CT shows no acute fracture. Left wrist film shows no fracture or bony dislocation. The patient has suffered a scalp abrasion and head trauma, he has a cervical strain and left wrist sprain. His Coumadin level is low and he will take double the dose of Coumadin this evening. He has an INR scheduled in a few days. The patient was reassured by his testing. He did receive some oral Tylenol for pain. He refused any tetanus immunizations. He is being discharged with outpatient follow-up. Medication Reconcilliation Current Medication List: was personally reviewed by me Blood Pressure Screening Patient's blood pressure: Elevated blood pressure Blood pressure disposition: Elevated BP felt to be situational Impression Primary Impression: Head trauma Additional Impressions: Scalp abrasion Cervical strain Left wrist sprain Fall Scribe Attestation The scribe's documentation has been prepared under my direction and personally reviewed by me in its entirety. I confirm that the note above accurately reflects all work, treatment, procedures, and medical decision making performed by me. Departure Information Dispostion Home / Self-Care Referrals Isaac Still MD (PCP) Forms HOME CARE DOCUMENTATION FORM, IMPORTANT VISIT INFORMATION Patient Instructions My [facility] Additional Instructions ice to the sore areas tylenol for pain watch for infection--redness, fever, drainage keep the abrasion clean and covered take double the coumadin dose this aaron see your doctor this week for a recheck Problem Qualifiers
--- NOTE | 2016-11-11 21:07 | DIAGNOSTIC IMAGING REPORT ---
LEFT WRIST MIN 3 VIEWS ROUTINE CLINICAL HISTORY: Left wrist pain status post trauma COMPARISON: None. DISCUSSION: 4 views are provided for interpretation. The bones are mildly osteopenic. There are vascular calcifications present. There is chondrocalcinosis. There are no acute fractures. There is an old corticated radial styloid chip fracture. IMPRESSION: No acute fractures or dislocations. Electronically signed by: Keaton Ruiz M.D. 11/11/2016 9:06 PM Dictated Date/Time: 11/11/2016 9:05 PM
[2016-11-11 21:10] LABS: INR 1.4 (0.9-1.1); PARTIAL THROMBOPLASTIN RATIO 1.2; PROTHROMBIN TIME (PATIENT) 15.3 SECONDS (9.0-12.0)
--- NOTE | 2016-11-11 21:10 | DIAGNOSTIC IMAGING REPORT ---
CT HEAD WITHOUT CONTRAST (CT) CLINICAL HISTORY: Head trauma. Head pain. Patient on Coumadin. COMPARISON STUDY: No previous studies for comparison. TECHNIQUE: Axial CT of the brain is performed from the vertex to the skull base. IV contrast was not administered for this examination. A dose lowering technique was utilized adhering to the principles of ALARA. CT DOSE: 1086.70 mGy.cm FINDINGS: No intra or extra-axial mass lesions are visualized. There is no CT evidence of acute cortical infarction. There is no evidence of midline shift. There is no acute hemorrhage. No calvarial fractures are visualized. There are minimal white matter hypodensities likely on a small vessel basis. There is no evidence of pathologic ventricular dilatation. There is opacification of the left frontal sinus. There is a frontal scalp hematoma. IMPRESSION: Frontal scalp hematoma. No acute intracranial findings. Electronically signed by: Keaton Ruiz M.D. 11/11/2016 9:09 PM Dictated Date/Time: 11/11/2016 9:07 PM
--- NOTE | 2016-11-11 21:13 | DIAGNOSTIC IMAGING REPORT ---
CT OF THE CERVICAL SPINE CLINICAL HISTORY: Neck pain status post trauma COMPARISON STUDY: No previous studies for comparison. CT DOSE: TECHNIQUE: CT scan of the cervical spine was performed from the skull base to the thoracic inlet. Images are reviewed in the axial, sagittal, and coronal planes. IV contrast was not administered for this examination. A dose lowering technique was utilized adhering to the principles of ALARA. FINDINGS: The visualized portions of the lung apices reveal no evidence of pneumothorax. There are extensive carotid bifurcation atheromatous calcifications. The prevertebral soft tissues are normal. No fractures or subluxations are visualized. There are multilevel degenerative changes. There are mild endplate erosive changes the C6-7 level. IMPRESSION: No evidence of acute fracture or traumatic subluxation. Electronically signed by: Keaton Ruiz M.D. 11/11/2016 9:12 PM Dictated Date/Time: 11/11/2016 9:09 PM
[2016-11-11 21:40] VITALS: BP 142/81; PULSE 68; O2SAT 99
== END 2016-11-11 21:40 | disposition home or self-care (01) ==
LOC: C.EDB 20:13 → C.EDC 21:40
DX: S09.90XA Unspecified injury of head, initial encounter (principal); S00.01XA Abrasion of scalp, initial encounter; S16.1XXA Strain of muscle, fascia and tendon at neck level, initial encounter; S63.502A Unspecified sprain of left wrist, initial encounter; W19.XXXA Unspecified fall, initial encounter; N17.9 Acute kidney failure, unspecified; I48.91 Unspecified atrial fibrillation; I25.10 Atherosclerotic heart disease of native coronary artery without angina pectoris; I10 Essential (primary) hypertension; E03.9 Hypothyroidism, unspecified; Z83.3 Family history of diabetes mellitus; Z82.49 Family history of ischemic heart disease and other diseases of the circulatory system; Z79.01 Long term (current) use of anticoagulants

== ENCOUNTER 2017-03-29 11:04 | Observation (INO) | payer OTHER ==
[~2017-03-29] VITALS: Ht 170.2 cm; Wt 74.0 kg
[~2017-03-29 11:04] MED LIST changes: +ATOR10TA82 PO; -ATOR10TA88 PO; -AZTR1INJ5 IV; -VNCS125 PO; -WARF4TAB8 PO
[2017-03-29 12:26] LABS: BASO % 0.3 %; BASO ABS # 0.03 K/uL (0-0.2); COMPLETE YES; HEMATOCRIT 41.1 % (42-52); IG% 0.3 %; LYMPH % 10.7 %; LYMPH ABS # 1.22 K/uL (1.2-3.4); MEAN CORPUSCULAR HEMOGLOBIN 31.5 pg (25-34); MEAN CORPUSCULAR HGB CONC 32.8 g/dl (32-36); MEAN PLATELET VOLUME 10.7 fL (7.4-10.4); MONO % 11.1 %; NEUT % 76.6 %; PLATELET COUNT 148 K/uL (130-400); RED BLOOD COUNT 4.28 M/uL (4.7-6.1); WHITE BLOOD COUNT 11.43 K/uL (4.8-10.8)
[2017-03-29 12:33] LABS: BUN/CREATININE RATIO 10.7 (10-20); CALCIUM 8.9 mg/dl (8.5-10.1); CREATININE 0.89 mg/dl (0.60-1.40); POTASSIUM 3.8 mmol/L (3.5-5.1)
[2017-03-29 12:36] LABS: ALB/GLOB RATIO 0.9 (0.9-2); INR 2.3 (0.9-1.1); PARTIAL THROMBOPLASTIN RATIO 1.9; PROTHROMBIN TIME (PATIENT) 23.9 SECONDS (9.0-12.0)
[2017-03-29] MEDS ORDERED: VANCOMYCIN INJ 1,750 MG in SODIUM CHLORIDE 0.9% 500ML 500 ML IV STA (12:42)
[2017-03-29] MEDS ORDERED: DOCU-94 PO (12:51)
[2017-03-29] MEDS ORDERED: ATOR10TA82 PO (12:51)
--- NOTE | 2017-03-29 12:56 | DIAGNOSTIC IMAGING REPORT ---
CHEST ONE VIEW PORTABLE CLINICAL HISTORY: Sepsis dyspnea COMPARISON STUDY: 10/12/2016 FINDINGS: Slight chronic interstitial prominence left lung base. Lungs otherwise are clear. No focal infiltrate. Mild stable cardiomegaly. Diaphragms smooth. IMPRESSION: Chronic change. No acute process. The above report was generated using voice recognition software. It may contain grammatical, syntax or spelling errors. Electronically signed by: Dung Ortega M.D. 03/29/2017 12:54 PM Dictated Date/Time: 03/29/2017 12:53 PM
--- NOTE | 2017-03-29 12:59 | DIAGNOSTIC IMAGING REPORT ---
R ELBOW MIN 3 VIEWS ROUTINE CLINICAL HISTORY: eval for fx trauma COMPARISON: None. DISCUSSION: Tiny ossific fragment adjacent to the radial head considered nonacute. Mild soft tissue edema. No abnormal depressed reaction. Soft tissue vascular calcification. Posterior soft tissue edema. IMPRESSION: Posterior soft tissue edema. No acute bony abnormality. The above report was generated using voice recognition software. It may contain grammatical, syntax or spelling errors. Electronically signed by: Dung Ortega M.D. 03/29/2017 12:58 PM Dictated Date/Time: 03/29/2017 12:56 PM
[2017-03-29] MEDS ORDERED: WARF-283 PO (14:05)
[2017-03-29] MEDS ORDERED: POLYETHYLENE (MIRALAX) 17 GM PACK PO PRN (14:15)
[2017-03-29] MEDS ORDERED: MAGNESIUM HYDROXIDE SUSP 30 ML UDC PO PRN (14:15)
[2017-03-29] MEDS ORDERED: DOCUSATE SODIUM 100 MG CAP PO PRN (14:15)
[2017-03-29] MEDS ORDERED: ALUMINUM/MAGNESIUM/SIMETH (MAALOX MAX) 30 ML UDC PO PRN (14:15)
[2017-03-29] MEDS ORDERED: ONDANSETRON INJ 2 MG/ML 2 ML VIAL IV PRN (14:15)
[2017-03-29] MEDS ORDERED: ACETAMINOPHEN 325 MG TAB PO PRN (14:15)
[2017-03-29 14:20] VITALS: O2SAT 95; Ht 170.2 cm; Wt 74.0 kg
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
--- NOTE | 2017-03-29 14:39 | Pharmacy Progress Note ---
Pharmacy Abx Initial Consult Date of Service Mar 29, 2017. Pharmacy Dosing Scope Date of Consult: 03/29/17 Consultation requested by: Dr. Wood Pharmacy is consulted to initiate Vancomycin IV dosing therapy for elbow cellulitis, order appropriate labs and adjust drug dose/frequency. Subjective The patient is a 76 year old male admitted on . Objective Height (Feet): 5 Height (Inches): 7.00 Weight (Kilograms): 74.000 Vital Signs (Past 12Hrs) Vital Signs Past 12 Hours Date Time Temp Pulse Resp B/P (MAP) Pulse Ox O2 Delivery O2 Flow Rate FiO2 03/29/17 12:26 68 24 162/61 97 Room Air 03/29/17 11:52 68 03/29/17 11:36 Room Air 03/29/17 11:08 36.6 74 20 171/77 98 Room Air Lab Results (24Hrs) Laboratory Tests (24 Hours) Test 03/29/17 11:25 White Blood Count 11.43 K/uL (4.8-10.8) H Red Blood Count 4.28 M/uL (4.7-6.1) L Hemoglobin 13.5 g/dL (14.0-18.0) L Hematocrit 41.1 % (42-52) L Mean Corpuscular Volume 96.0 fL (80-100) Mean Corpuscular Hemoglobin 31.5 pg (25-34) Mean Corpuscular Hemoglobin Concent 32.8 g/dl (32-36) Platelet Count 148 K/uL (130-400) Mean Platelet Volume 10.7 fL (7.4-10.4) H Neutrophils (%) (Auto) 76.6 % Lymphocytes (%) (Auto) 10.7 % Monocytes (%) (Auto) 11.1 % Eosinophils (%) (Auto) 1.0 % Basophils (%) (Auto) 0.3 % Neutrophils # (Auto) 8.75 K/uL (1.4-6.5) H Lymphocytes # (Auto) 1.22 K/uL (1.2-3.4) Monocytes # (Auto) 1.27 K/uL (0.11-0.59) H Eosinophils # (Auto) 0.12 K/uL (0-0.5) Basophils # (Auto) 0.03 K/uL (0-0.2) Micro Results Date/Time Source Procedure Growth Status 03/29/17 12:59 Blood Blood Culture Pending Received 03/29/17 12:51 Blood Blood Culture Pending Received Assessment & Plan Assessment 76 year old male * h/o c. diff * chronic b/l lower extremity dermatitis Plan Pharmacy has been consulted for treatment of right elbow cellulitis Vancomycin IV * Loading dose: 1750 mg (24 mg/kg) * Maintenance dose: 1250 mg IV (17 mg/kg) every 18 hours * Estimated P'kinetic levels: ke= 0.0609/hr, t1/2= 11 hrs * Goal trough level for cellulitis : ~15 mcg/mL * Trough level ordered for 04/01/17 ~30 minutes before the 4th maintenance dose Pharmacy will continue to follow and will adjust dose/frequency as necessary. Thank you.
[2017-03-29] MEDS ORDERED: VANCOMYCIN CONSULT ACTIVE PRN (14:45)
[2017-03-29] MEDS ORDERED: IV FLUIDS COMPLETED PRN (15:15)
--- NOTE | 2017-03-29 15:26 | EMERGENCY ROOM VISIT NOTE ---
History Report prepared by Esther: Dale Alexis Under the Supervision of: Dr. Khris Solares M.D. First contact with patient: 12:00 Chief Complaint: OTHER COMPLAINT Stated Complaint: SHIVERING History of Present Illness The patient is a 76 year old male who presents to the Emergency Room with a chief complaint of chills that began a couple of days ago. The patient has not taken his temperature over this time, but has been shaking. Per the patient's family, this morning he seemed to be mentally altered secondary to his speech rambling. They deny any speech slur or facial droop. This has been happening intermittently all morning. The patient denies any fevers, headache, chest pain , shortness of breath, abdominal pain, or abnormal urinary symptoms. He has had a dry cough for about a week as well. The patient accidentally hit his right elbow on a window sill 1 week ago and notes that it is swollen. He states that his legs have not changed in the past couple of weeks. He notes that he had a sharp pain in his abdomen while defecating recently, but it only happened once. Source of History: patient, family Onset: a couple of days ago Position: other (Global) Symptom Intensity: moderate Quality: other (Chills) Timing: constant Associated Symptoms: + cough, No fevers, No headache, No chest pain, No SOB , No abdominal pain, No urinary symptoms Note: Per his family, the patient has been mildly confused intermittently all morning. Review of Systems See HPI for pertinent positives & negatives. A total of 10 systems reviewed and were otherwise negative. 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 Surgical Problems: (1) History of cataract surgery (2) History of colon resection Family History Cancer Diabetes mellitus Gallbladder disease Heart disease Kidney disease Kidney stones Lung disease Social History Smoking Status: Never Smoker Drug Use: none Marital Status: Housing Status: lives with family Occupation Status: retired Current/Historical Medications Scheduled Atorvastatin (Lipitor), 10 MG PO DAILY Carvedilol (Coreg), 3.125 MG PO AMHS Digoxin (Digoxin), 0.125 MG PO QPM Levothyroxine Sodium (Levothyroxine Sodium), 88 MCG PO DAILY Potassium Chloride (Klor-Con Ext Rel), 8 MEQ PO AMHS Spironolactone (Spironolactone), 25 MG PO AMHS Warfarin Sodium (Warfarin Sodium), 4 MG PO UD Scheduled PRN Docusate Sodium (Colace), 1 CAP PO BID PRN for Constipation Allergies Coded Allergies: Amoxicillin (Verified Allergy, Intermediate, RASH, ITCHING, 03/29/17) Cephalexin (Verified Allergy, Intermediate, RASH,ITCHING, 03/29/17) Ciprofloxacin (Verified Allergy, Intermediate, RASH, 03/29/17) Patient becomes itchy/arm becomes reddened Clavulanic Acid (Verified Allergy, Intermediate, RASH, ITCHING, 03/29/17) Penicillins (Verified Allergy, Intermediate, AUGMENTIN-RASH,ITCHING, ) Morphine (Verified Allergy, Mild, RASH, 03/29/17) Physical Exam Vital Signs Date Time Temp Pulse Resp B/P (MAP) Pulse Ox O2 Delivery O2 Flow Rate FiO2 03/29/17 14:20 95 Room Air 03/29/17 14:00 76 20 147/76 95 Room Air 03/29/17 13:30 68 20 146/72 97 Room Air 03/29/17 13:00 68 20 164/74 99 Room Air 03/29/17 12:26 68 24 162/61 97 Room Air 03/29/17 11:52 68 03/29/17 11:36 Room Air 03/29/17 11:08 36.6 74 20 171/77 98 Room Air Physical Exam Constitutional: Vital signs reviewed General: Pleasant. Easily conversant. Does not seem to be confused. Eyes: Pupils are equal round reactive to light. Conjunctiva are noninjected. ENT: Pharynx is clear without erythema or exudate. Mucous membranes are moist. Neck supple without meningeal signs. Respiratory: Clear to auscultation bilaterally. Breath sounds are equal bilaterally. Cardiovascular: Regular rate and rhythm. No rubs or gallops. GI: Soft, nondistended and nontender. Bowel sounds are present. Musculoskeletal: The right elbow shows significant swelling and erythema over the dorsal aspect. Full ROM of the joint without pain. Minimal tenderness to the erythematous region. Both legs, right greater than left, show erythema and increased warmth with chronic stasis dermatitis. Distal capillary refill intact. Integumentary: No cyanosis. Neurological: The patient is awake and alert. Cranial nerves II-XII are intact. Motor is 5 out of 5 all extremities. Sensation is intact to light touch all extremities. Normal speech. No pronator drift. Psychiatric: Normal affect. Medical Decision & Procedures ER Provider Diagnostic Interpretation: Radiology results as stated below per my review and the radiologist's interpretation: CHEST ONE VIEW PORTABLE CLINICAL HISTORY: Sepsis dyspnea COMPARISON STUDY: 10/12/2016 FINDINGS: Slight chronic interstitial prominence left lung base. Lungs otherwise are clear. No focal infiltrate. Mild stable cardiomegaly. Diaphragms smooth. IMPRESSION: Chronic change. No acute process. The above report was generated using voice recognition software. It may contain grammatical, syntax or spelling errors. Electronically signed by: Dung Ortega M.D. 03/29/2017 12:54 PM Dictated Date/Time: 03/29/2017 12:53 PM R ELBOW MIN 3 VIEWS ROUTINE CLINICAL HISTORY: eval for fx trauma COMPARISON: None. DISCUSSION: Tiny ossific fragment adjacent to the radial head considered nonacute. Mild soft tissue edema. No abnormal depressed reaction. Soft tissue vascular calcification. Posterior soft tissue edema. IMPRESSION: Posterior soft tissue edema. No acute bony abnormality. The above report was generated using voice recognition software. It may contain grammatical, syntax or spelling errors. Electronically signed by: Dung Ortega M.D. 03/29/2017 12:58 PM Dictated Date/Time: 03/29/2017 12:56 PM Laboratory Results 03/29/17 11:25 Red Blood Count 4.28, Mean Corpuscular Volume 96.0, Mean Corpuscular Hemoglobin 31.5, Mean Corpuscular Hemoglobin Concent 32.8, Mean Platelet Volume 10.7, Neutrophils (%) (Auto) 76.6, Lymphocytes (%) (Auto) 10.7, Monocytes (%) (Auto) 11.1, Eosinophils (%) (Auto) 1.0, Basophils (%) (Auto) 0.3, Neutrophils # (Auto ) 8.75, Lymphocytes # (Auto) 1.22, Monocytes # (Auto) 1.27, Eosinophils # (Auto ) 0.12, Basophils # (Auto) 0.03 12/8/17 11:25 Test 03/29/17 11:25 03/29/17 13:26 03/29/17 14:05 White Blood Count 11.43 K/uL (4.8-10.8) Red Blood Count 4.28 M/uL (4.7-6.1) Hemoglobin 13.5 g/dL (14.0-18.0) Hematocrit 41.1 % (42-52) Mean Corpuscular Volume 96.0 fL (80-100) Mean Corpuscular Hemoglobin 31.5 pg (25-34) Mean Corpuscular Hemoglobin Concent 32.8 g/dl (32-36) Platelet Count 148 K/uL (130-400) Mean Platelet Volume 10.7 fL (7.4-10.4) Neutrophils (%) (Auto) 76.6 % Lymphocytes (%) (Auto) 10.7 % Monocytes (%) (Auto) 11.1 % Eosinophils (%) (Auto) 1.0 % Basophils (%) (Auto) 0.3 % Neutrophils # (Auto) 8.75 K/uL (1.4-6.5) Lymphocytes # (Auto) 1.22 K/uL (1.2-3.4) Monocytes # (Auto) 1.27 K/uL (0.11-0.59) Eosinophils # (Auto) 0.12 K/uL (0-0.5) Basophils # (Auto) 0.03 K/uL (0-0.2) RDW Standard Deviation 49.4 fL (36.4-46.3) RDW Coefficient of Variation 14.2 % (11.5-14.5) Immature Granulocyte % (Auto) 0.3 % Immature Granulocyte # (Auto) 0.04 K/uL (0.00-0.02) Prothrombin Time 23.9 SECONDS (9.0-12.0) Prothromb Time International Ratio 2.3 (0.9-1.1) Activated Partial Thromboplast Time 48.1 SECONDS (21.0-31.0) Partial Thromboplastin Ratio 1.9 Anion Gap 8.0 mmol/L (3-11) Est Creatinine Clear Calc Drug Dose 68.1 ml/min Estimated GFR () 97.6 Estimated GFR (Non- 84.2 BUN/Creatinine Ratio 10.7 (10-20) Calcium Level 8.9 mg/dl (8.5-10.1) Iron Level 26 mcg/dl (35-175) Total Iron Binding Capacity 319 mcg/dl (250-450) Transferrin 202 mg/dl (200-360) Transferrin % Saturation 9 % (20-50) Ferritin 80.0 ng/ml (8.0-388.0) Total Bilirubin 1.0 mg/dl (0.2-1) Aspartate Amino Transf (AST/SGOT) 23 U/L (15-37) Alanine Aminotransferase (ALT/SGPT) 18 U/L (12-78) Alkaline Phosphatase 77 U/L (45-117) Total Protein 8.0 gm/dl (6.4-8.2) Albumin 3.7 gm/dl (3.4-5.0) Globulin 4.3 gm/dl (2.5-4.0) Albumin/Globulin Ratio 0.9 (0.9-2) Bedside Lactic Acid Venous 2.25 mmol/L (0.90-1.70) Laboratory results as reviewed by me. Medications Administered Medications (Trade) Dose Ordered Sig/Baldo Route Start Time Stop Time Status Last Admin Dose Admin Vancomycin HCl 1750 mg/Sodium Chloride 535 ml @ 200 mls/hr NOW STAT IV 03/29/17 12:42 03/29/17 15:22 DC 03/29/17 13:17 200 MLS/HR ECG Indication: altered mental status Rate (beats per minute): 76 Rhythm: atrial fibrillation Findings: nonspecific-ST abn (precordial), no ectopy ED Course 1200: The patient was evaluated in room C3. A complete history and physical exam was performed. 1242: Ordered Vancomycin HCl 1750 mg/Sodium Chloride 535 ml @ 200 mls/hr IV 1245: I spoke with Dr. Bailey of the [facility]. We discussed the patient and his results. The patient will be further evaluated by him. 1300: I discussed the patient's tests results with him. He agrees to be hospitalized for further evaluation. Medical Decision This is a 76-year-old male who presents with chills and elbow pain. Differential diagnosis includes sepsis, SIRS, septic bursitis, septic arthritis , abscess, cellulitis. I did perform a limited focused review of portions of the patient's old chart on the electronic medical record. The patient has had no recent pertinent visits to this hospital. I did evaluate the patient as noted above. Patient is presenting with chills. He has swelling and redness to his right elbow. There is no significant tenderness to suggest an abscess. He has full range of motion without pain. I do not suspect a septic arthritis. He also has significant cellulitis to his legs. He has some chronic discoloration of the leg but he has superimposed erythema as well as increased warmth. IV access was established. The patient was placed on a continuous lawn service manager. I did order and personally review the patient's 12-lead EKG and chest/elbow x-ray as described above. There is no evidence of pneumonia or joint effusion. I did order and review the patient' s blood work as noted in the electronic medical record. His white blood cell count and lactic acid are elevated. I did treat the patient with IV vancomycin. I did recommend hospitalization for IV antibiotics and further care. I did discuss case with the hospitalist and bilingual case manager. Medication Reconcilliation Current Medication List: was personally reviewed by me Blood Pressure Screening Patient's blood pressure: Elevated blood pressure Blood pressure disposition: Referred to PCP Consults Time Called: 1240 Consulting Physician: Dr. Lynn GARCIA Returned Call: 1245 We discussed the patient and his results. The patient will be further evaluated by him. Impression Primary Impression: Septic olecranon bursitis of right elbow Additional Impression: Bilateral lower leg cellulitis Scribe Attestation The scribe's documentation has been prepared under my direct and personally reviewed by me in its entirety. I confirm that the note above accurately reflects all work, treatment, procedures, and medical decision making performed by me. Departure Information Dispostion Being Evaluated By Hospitalist Referrals No Doctor, Assigned (PCP) Patient Instructions My [facility] Problem Qualifiers
[2017-03-29] MEDS ORDERED: WARFARIN SOD 4 MG TAB PO SCH (16:00)
[2017-03-29 16:20] VITALS: BP 164/81; PULSE 83; TEMP 39.4; O2SAT 97
[2017-03-29 16:48] LABS: URINE APPEARANCE CLEAR (CLEAR); URINE BILIRUBIN NEG (NEG); URINE COLOR YELLOW; URINE NITRITE NEG (NEG); URINE PH 8.5 (4.5-7.5); URINE SPECIFIC GRAVITY 1.016 (1.000-1.030); UROBILINOGEN NEG (NEG); ZZUR CULT IF INDIC CLEAN CATCH NO
[2017-03-29 16:51] LABS: MANUAL MICROSCOPIC REQUIRED? NO; REVIEW REQ? NO; SULFASALICYLIC ACID NEG (NEG)
[2017-03-29 17:50] VITALS: TEMP 37.4
[2017-03-29] MEDS: SPIRONOLACTONE 25 MG TAB PO SCH (20:37)
[2017-03-29] MEDS: DIGOXIN 0.125 MG TAB PO SCH (20:38)
[2017-03-29] MEDS: POTASSIUM CHLORIDE 10 MEQ TABCR PO SCH (20:38)
[2017-03-29] MEDS: CARVEDILOL 3.125 MG TAB PO SCH (20:38)
[2017-03-29 23:35] VITALS: BP 147/74; PULSE 70; TEMP 36.8; O2SAT 96
[2017-03-30] MEDS ORDERED: VANCOMYCIN INJ 1,250 MG in SODIUM CHLORIDE 0.9% 250ML 250 ML IV SCH ×2 (06:00→22:00)
[2017-03-30] MEDS: LEVOTHYROXINE 88 MCG TAB PO SCH (06:05)
[2017-03-30 06:16] LABS: HEMATOCRIT 39.3 % (42-52); MEAN CELL VOLUME 94.7 fL (80-100); MEAN CORPUSCULAR HEMOGLOBIN 30.8 pg (25-34); MEAN CORPUSCULAR HGB CONC 32.6 g/dl (32-36); MEAN PLATELET VOLUME 10.2 fL (7.4-10.4); PLATELET COUNT 139 K/uL (130-400); RED BLOOD COUNT 4.15 M/uL (4.7-6.1); WHITE BLOOD COUNT 10.27 K/uL (4.8-10.8)
[2017-03-30 06:23] LABS: INR 1.9 (0.9-1.1); PROTHROMBIN TIME (PATIENT) 19.4 SECONDS (9.0-12.0)
[2017-03-30 06:51] LABS: BUN/CREATININE RATIO 17.8 (10-20); CALCIUM 8.6 mg/dl (8.5-10.1); CREATININE 0.76 mg/dl (0.60-1.40); POTASSIUM 3.8 mmol/L (3.5-5.1)
[2017-03-30 08:00] VITALS: O2SAT 98
[2017-03-30 08:03] VITALS: BP 151/76; PULSE 74; TEMP 36.8; O2SAT 95
[2017-03-30] MEDS: ATORVASTATIN 10 MG TAB PO SCH (08:10)
[2017-03-30] MEDS: CARVEDILOL 3.125 MG TAB PO SCH ×2 (08:11→21:03)
[2017-03-30] MEDS: POTASSIUM CHLORIDE 10 MEQ TABCR PO SCH ×2 (08:11→21:04)
[2017-03-30] MEDS: SPIRONOLACTONE 25 MG TAB PO SCH ×2 (08:11→21:04)
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
[2017-03-30 15:13] VITALS: BP 132/73; PULSE 78; TEMP 36.8; O2SAT 93
[2017-03-30 16:00] VITALS: O2SAT 93
[2017-03-30] MEDS ORDERED: WARFARIN SOD 2 MG TAB PO SCH (16:00)
[2017-03-30] MEDS: DIGOXIN 0.125 MG TAB PO SCH (16:41)
[2017-03-30 22:07] VITALS: BP 130/65; PULSE 75; TEMP 36.9; O2SAT 92
[2017-03-30 23:42] VITALS: BP 129/77; PULSE 69; TEMP 36.8; O2SAT 94
[2017-03-31] MEDS: LEVOTHYROXINE 88 MCG TAB PO SCH (05:57)
[2017-03-31 07:16] LABS: CREATININE 0.77 mg/dl (0.60-1.40)
[2017-03-31] MEDS: SPIRONOLACTONE 25 MG TAB PO SCH (07:59)
[2017-03-31] MEDS: POTASSIUM CHLORIDE 10 MEQ TABCR PO SCH (07:59)
[2017-03-31] MEDS: CARVEDILOL 3.125 MG TAB PO SCH (08:00)
[2017-03-31] MEDS: ATORVASTATIN 10 MG TAB PO SCH (08:01)
[2017-03-31 08:23] VITALS: BP 124/78; PULSE 82; TEMP 36.9; O2SAT 93
[2017-03-31] MEDS ORDERED: SULF800T23 PO (10:56)
--- NOTE | 2017-03-31 10:58 | Discharge Instructions ---
Discharge Instructions Date of Service Mar 31, 2017. Admission Reason for Admission: Cellulitis Discharge Discharge Diagnosis / Problem: Right elbow cellulitis Discharge Goals Goal(s): Decrease discomfort, Improve function, Increase independence, Improve disease control, Learn about illness, Diagnostic testing, Therapeutic intervention, Prevent Disease Progression Activity Recommendations Activity Limitations: resume your previous activity Exercise/Sports Limitations: as tolerated . Instructions / Follow-Up Instructions / Follow-Up Patient to be discharged home Admitted with right elbow cellulitis Will need to be discharged on antibiotic bactrim 1 capsule twice a day for 10 more days If worsening fevers, pain or redness in right elbow please report to ER Current Hospital Diet Patient's current hospital diet: AHA Diet (Heart Healthy) Discharge Diet Recommended Diet: AHA Diet (Heart Healthy) Pending Studies Studies pending at discharge: no Medical Emergencies . Who to Call and When: Medical Emergencies: If at any time you feel your situation is an emergency, please call 911 immediately. . Non-Emergent Contact Non-Emergency issues call your: Primary Care Provider Call Non-Emergent contact if: you have a fever, your pain is worsening . . "Provider Documentation" section prepared by Mauricio Villalobos. . VTE Core Measure Inpt VTE Proph given/why not?: Warfarin (Coumadin), T.E.D. Stockings, SCD's
[2017-03-31 12:21] VITALS: BP 124/78; PULSE 82; TEMP 36.9; O2SAT 93
--- NOTE | 2017-03-31 14:02 | Discharge Summary ---
Discharge Summary Date of Service Mar 31, 2017. Discharge Summary Admission Date: Mar 29, 2017 at 14:04 Discharge Date: Mar 31, 2017 Discharge Disposition: Home Principal Diagnosis: Right elbow cellulitis Medication Reconciliation New Medications: Sulfa/Trimethoprim (Bactrim Ds 800MG/160MG) Tab 1 TAB PO BID for 10 Days, #20 TAB Continued Medications: Atorvastatin (Lipitor) 10 Mg Tab 10 MG PO DAILY, TAB Carvedilol (Coreg) 3.125 Mg Tab 3.125 MG PO AMHS, TAB Digoxin (Digoxin) 0.125 Mg Tab 0.125 MG PO QPM Docusate Sodium (Colace) 100 Mg Cap 1 CAP PO BID PRN for Constipation, CAP Levothyroxine Sodium (Levothyroxine Sodium) 88 Mcg Tab 88 MCG PO DAILY Potassium Chloride (Klor-Con Ext Rel) 8 Meq Tabcr 8 MEQ PO AMHS Spironolactone (Spironolactone) 25 Mg Tab 25 MG PO AMHS Warfarin Sodium (Warfarin Sodium) 4 Mg Tab 4 MG PO UD for 90 Days, TAB 1 Refill Alternate 4 mg and 2 mg doses Discharge Exam Review of Systems: Constitutional: No fever, No chills, No sweats, No weakness Eyes: No worsening of vision, No eye pain, No redness, No discharge Respiratory: No cough, No sputum, No wheezing, No shortness of breath, No dyspnea on exertion Cardiovascular: No chest pain, No orthopnea, No PND, No edema Abdomen: No pain, No nausea, No vomiting, No diarrhea Musculoskeletal: + muscle pain, No joint pain, No swelling, No calf pain Genitourinary - Male: No hematuria, No dysuria, No urinary frequency, No urinary urgency Neurologic: No memory loss, No paralysis, No weakness, No numbness/tingling Psychiatric: No depression symptoms, No anhedonism, No anxiety, No insomnia Endocrine: No fatigue, No excessive thirst Integumentary: No rash, No itch Physical Exam: General Appearance: WD/WN, no apparent distress Eyes: normal inspection, PERRL, EOMI, sclerae normal Neck: supple, no adenopathy, thyroid normal, no JVD Respiratory/Chest: chest non-tender, lungs clear, normal breath sounds, no respiratory distress Cardiovascular: regular rate, rhythm, no edema, no gallop, no JVD, no murmur Abdomen / GI: normal bowel sounds, non tender, soft, no organomegaly Extremities: normal inspection, no calf tenderness, normal capillary refill , no pedal edema Neurologic/Psychiatric: no motor/sensory deficits, alert, normal mood/affect , oriented x 3 Skin: warm/dry, no rash, + pertinent finding (right elbow cellulitis, redness fading, slightly tender on palpation) Lymphatic: no adenopathy Hospital Course 76 y/o male here with right elbow cellulitis Right elbow cellulitis -Vancomycin as inot, improved, will DC on bactrim 800/160 BID for 10 more days -Blood cultures NGTD Mild anemia -Hgb 12.8 -Iron a little low but normocytic anemia, folate and B12 normal A-fib--stable, rate controlled -Continue Coreg, digoxin, and warfarin -Monitor INR CAD s/p stent, [place], HTN, HLD--stable -Continue Coreg, Lipitor, spironolactone Hypothyroidism -Continue Synthroid DVT prophylaxis - coumadin, SCDs Code Status -Level V, DO NOT RESUSCITATE Total Time Spent: Greater than 30 minutes This includes examination of the patient, discharge planning, medication reconciliation, and communication with other providers. Discharge Instructions Please refer to the electronic Patient Visit Report (Discharge Instructions) for additional information. Additional Copies To Toro Vasquez M.D.
[2017-04-01] MEDS ORDERED: VANCOMYCIN TROUGH ONE ×2 (09:30→11:30)
== END 2017-03-31 15:40 | disposition home or self-care (01) ==
LOC: C.EDB 11:05 → C.MS2W 14:04 → ENRESERV 14:31
PROVIDERS: ADMIT Hospitalist; ATTEND Hospitalist
DX: L03.90 Cellulitis, unspecified (principal); I48.91 Unspecified atrial fibrillation; I25.10 Atherosclerotic heart disease of native coronary artery without angina pectoris; I10 Essential (primary) hypertension; E03.9 Hypothyroidism, unspecified; Z98.49 Cataract extraction status, unspecified eye; Z90.89 Acquired absence of other organs; Z79.01 Long term (current) use of anticoagulants; Z79.899 Other long term (current) drug therapy; I25.2 Old myocardial infarction; Z88.0 Allergy status to penicillin; Z88.1 Allergy status to other antibiotic agents; Z88.5 Allergy status to narcotic agent; Z80.9 Family history of malignant neoplasm, unspecified; Z83.3 Family history of diabetes mellitus; Z82.49 Family history of ischemic heart disease and other diseases of the circulatory system; Z84.1 Family history of disorders of kidney and ureter

== ENCOUNTER 2017-06-22 13:39 | Inpatient (IN) | payer OTHER ==
[~2017-06-22] VITALS: Ht 170.2 cm; Wt 77.0 kg
[~2017-06-22 13:39] MED LIST changes: +DOCU-94 PO; -MTR500 PO; +WARF-283 PO; -WARF2TAB8 PO
--- NOTE | 2017-06-22 14:13 | EMERGENCY ROOM VISIT NOTE ---
History Report prepared by Yasmeenibhosea: Jacy Naylor Under the Supervision of: Dr. Darin Ramírez D.O. First contact with patient: 13:51 Chief Complaint: INFECTION Stated Complaint: RIGHT EYE/FACE Nursing Triage Summary: Pt states on started pain, redness and swelling around right eye progressively worsening. Son states, "It didn't look anything like this even yesterday." Seen at urgent care in [place] and sent here. 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 Drainage noted on socks when shoes were removed. History of Present Illness The patient is a 76 year old male who presents to the Emergency Room with complaints of worsening right eye swelling beginning four days ago. The patient states his symptoms began as pain, redness and swelling around right eye which has progressively worsened. The patient was seen at urgent care in [place] and sent to the ED. The patient has a history of cellulitis on his legs. He denies ever having symptoms like this before. Source of History: patient Onset: 4 days ago Position: eye (right) Quality: other (swelling) Timing: worsening Modifying Factors (Relieving): other (none) Review of Systems See HPI for pertinent positives & negatives. A total of 10 systems reviewed and were otherwise negative. 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 Surgical Problems: (1) History of cataract surgery (2) History of colon resection Family History Cancer Diabetes mellitus Gallbladder disease Heart disease Kidney disease Kidney stones Lung disease Social History Smoking Status: Former Smoker Drug Use: none Marital Status: Housing Status: lives with family Occupation Status: retired Current/Historical Medications Scheduled Atorvastatin (Lipitor), 10 MG PO DAILY Carvedilol (Coreg), 3.125 MG PO AMHS Digoxin (Digoxin), 0.125 MG PO QPM Levothyroxine Sodium (Levothyroxine Sodium), 88 MCG PO DAILY Potassium Chloride (Klor-Con Ext Rel), 8 MEQ PO AMHS Spironolactone (Spironolactone), 25 MG PO AMHS Warfarin Sod (Jantoven), 4 MG PO [id number] Warfarin Sod (Jantoven), 2 MG PO [id number] Scheduled PRN Docusate Sodium (Colace), 1 CAP PO BID PRN for Constipation Allergies Coded Allergies: Amoxicillin (Verified Allergy, Intermediate, RASH, ITCHING, 06/22/17) Cephalexin (Verified Allergy, Intermediate, RASH,ITCHING, 06/22/17) Ciprofloxacin (Verified Allergy, Intermediate, RASH, 06/22/17) Patient becomes itchy/arm becomes reddened Clavulanic Acid (Verified Allergy, Intermediate, RASH, ITCHING, 06/22/17) Penicillins (Verified Allergy, Intermediate, AUGMENTIN-RASH,ITCHING, ) Morphine (Verified Allergy, Mild, RASH, 06/22/17) Physical Exam Vital Signs Date Time Temp Pulse Resp B/P (MAP) Pulse Ox O2 Delivery O2 Flow Rate FiO2 06/22/17 13:45 36.7 73 16 195/95 99 Room Air Physical Exam GENERAL: Patient is awake, alert, and in no acute distress. Patient is resting comfortably and showing no signs of anxiety EYES: The conjunctivae are clear. No conjunctival injection. The pupils are round and reactive. Significant swelling at right tear duct with significant dacryocystitis, there was streaking into right cheek, pressure over area noted purulent drainage. EARS, NOSE, MOUTH AND THROAT: The nose is without any evidence of any deformity. Mucous membranes are moist tongue is midline NECK: The neck is nontender and supple. RESPIRATORY: Normal respiratory effort is noted there is no evidence of wheezing rhonchi or rales CARDIOVASCULAR: Regular rate and rhythm noted there no murmurs rubs or gallops normal S1 normal S2 GASTROINTESTINAL: The abdomen is soft. Bowel sounds are present in all quadrants. Abdomen is nontender PELVIS: The Pelvis is stable. No tenderness to palpation is noted. BACK: No midline tenderness or or step-off noted range of motion in flexion extension as well as rotation no signs of muscle spasm noted MUSCULOSKELETAL/EXTREMITIES: There is no evidence of gross deformity full range of motion is noted in the hips and shoulders SKIN: Severe stasis dermatitis noted with pedal edema. There is no obvious evidence of any rash. There are no petechiae, pallor or cyanosis noted. NEUROLOGIC: Patient is awake alert and oriented x3 Medical Decision & Procedures ER Provider Diagnostic Interpretation: Radiology results as stated below per my review and radiologist interpretation: FACIAL BONES-MXILLOFAC WITHOUT FINDINGS: Spa Coordinator topogram: The patient is edentulous. Noncontrast evaluation of the soft tissues of the face demonstrates extensive preseptal inflammatory change surrounding the right orbit. The greatest degree of inflammatory change is centered at the inferior medial aspect of the right periorbital tissue in the region of the nasolacrimal duct, which is opacified. No evidence of post septal inflammatory change. Bilateral [place] lenses are absent. Globes otherwise normal. Limited intracranial evaluation demonstrates age-related changes. Paranasal sinuses and mastoid air cells clear. Osteopenia suspected. No osseous erosion. IMPRESSION: Extensive preseptal inflammatory change in the right periorbital soft tissues centered at the right nasolacrimal duct. No post septal orbital inflammatory change. Electronically signed by: Melecio Wilson M.D. Laboratory Results Test 06/22/17 14:38 06/22/17 16:22 Activated Partial Thromboplast Time 42.5 SECONDS (21.0-31.0) Partial Thromboplastin Ratio 1.6 Total Bilirubin 0.6 mg/dl (0.2-1) Direct Bilirubin 0.2 mg/dl (0-0.2) Aspartate Amino Transf (AST/SGOT) 22 U/L (15-37) Alanine Aminotransferase (ALT/SGPT) 19 U/L (12-78) Alkaline Phosphatase 86 U/L (45-117) Total Protein 8.8 gm/dl (6.4-8.2) Albumin 3.8 gm/dl (3.4-5.0) Digoxin Level 1.2 ng/ml (0.8-2.0) Laboratory results per my review. Medications Administered Medications (Trade) Dose Ordered Sig/Baldo Route Start Time Stop Time Status Last Admin Dose Admin Clindamycin Phosphate 600 mg/ Dextrose 104 ml @ 100 mls/hr ONE ONCE IV 06/22/17 15:45 06/22/17 16:47 DC 06/22/17 16:28 100 MLS/HR ED Course 1357: The patient was evaluated in room A11B. A complete history and physical examination were performed. 1542: I discussed the patient's case with Dr. Ocasio-Ophthalmology. He recommends talking with infectious disease and admitting the patient to the hospital. 1545: Ordered Clindamycin Phosphate 600 mg/Dextrose 104 ml @ 100 mls/hr IV. 1603: I discussed the patient's case with Dr. De La Cruz . The patient will be evaluated for further management. Medical Decision Differential diagnosis: Etiologies such as cellulitis, abscess, MRSA infection, DVT, necrotizing fasciitis, dermatitis, drug eruption, as well as others were entertained.. Nursing notes reviewed. Additional history is obtained for the patient's family member. The patient is a 76-year-old male who presented to the emergency department from his outpatient clinic for an evaluation of facial pain and swelling. On exam the patient had an infected tear duct but there was significant purulent drainage noted. The patient was started on IV antibiotics in the emergency department. I discussed patient's laboratory and radiographic studies with him. I also discussed his case with the on-call [facility] hospitalist as well as the on-call barnworker groom. The patient may require further surgical drainage of this but it appears to be draining spontaneously at this time. The patient's history I feel that he would do better with IV antibiotics especially given his allergy listing. The patient was agreeable to this plan. Medication Reconcilliation Current Medication List: was personally reviewed by me Blood Pressure Screening Patient's blood pressure: Elevated blood pressure Blood pressure disposition: Referred to PCP (referred to hospitalist) Consults Time Called: 1538 Consulting Physician: Dr. Ocasio-Opthamology Returned Call: 1542 I discussed the patient's case with Dr. Ocasio-Ophthalmology. He recommends talking with infectious disease and admitting the patient to the hospital. Additional Consults: Time Called: 1600 Consulted Physician: Dr. De La Cruz Returned Call: 1603 Additional Comments: I discussed the patient's case with Dr. De La Cruz . The patient will be evaluated for further management. Impression Primary Impression: Facial cellulitis Additional Impression: Dacrocystitis Scribe Attestation The scribe's documentation has been prepared under my direction and personally reviewed by me in its entirety. I confirm that the note above accurately reflects all work, treatment, procedures, and medical decision making performed by me. Departure Information Dispostion Being Evaluated By Hospitalist Referrals Toro Vasquez M.D. (PCP) Patient Instructions My [facility] Problem Qualifiers Additional Impression: Dacrocystitis Laterality: right Qualified Codes: H04.301 - Unspecified dacryocystitis of right lacrimal passage
[2017-06-22 14:54] LABS: BASO % 0.2 %; BASO ABS # 0.02 K/uL (0-0.2); EOS % 3.4 %; EOS ABS # 0.33 K/uL (0-0.5); HEMATOCRIT 42.7 % (42-52); HEMOGLOBIN 14.1 g/dL (14.0-18.0); IG# 0.03 K/uL (0.00-0.02); LYMPH % 17.3 %; LYMPH ABS # 1.67 K/uL (1.2-3.4); MEAN CELL VOLUME 96.8 fL (80-100); MEAN PLATELET VOLUME 10.4 fL (7.4-10.4); MONO % 10.6 %; MONO ABS # 1.02 K/uL (0.11-0.59); NEUT % 68.2 %; NEUT ABS # 6.59 K/uL (1.4-6.5); PLATELET COUNT 161 K/uL (130-400); RED CELL DISTRIBUTION WIDTH CV 13.6 % (11.5-14.5); RED CELL DISTRIBUTION WIDTH SD 48.3 fL (36.4-46.3); WHITE BLOOD COUNT 9.66 K/uL (4.8-10.8)
[2017-06-22 15:04] LABS: INR 1.8 (0.9-1.1); PTT PATIENT 42.5 SECONDS (21.0-31.0)
--- NOTE | 2017-06-22 15:19 | DIAGNOSTIC IMAGING REPORT ---
FACIAL BONES-MXILLOFAC WITHOUT CLINICAL HISTORY: 76 years-old Male presenting with right dacrocystitis. TECHNIQUE: Multidetector CT of the face was performed without the use of intravenous contrast. IV contrast: None. A dose lowering technique was used consistent with the principles of ALARA (as low as reasonably achievable). COMPARISON: None. CT DOSE (mGy.cm): The estimated cumulative dose is 636.35 mGycm. FINDINGS: Engineer Technical Staff topogram: The patient is edentulous. Noncontrast evaluation of the soft tissues of the face demonstrates extensive preseptal inflammatory change surrounding the right orbit. The greatest degree of inflammatory change is centered at the inferior medial aspect of the right periorbital tissue in the region of the nasolacrimal duct, which is opacified. No evidence of post septal inflammatory change. Bilateral [place] lenses are absent. Globes otherwise normal. Limited intracranial evaluation demonstrates age-related changes. Paranasal sinuses and mastoid air cells clear. Osteopenia suspected. No osseous erosion. IMPRESSION: Extensive preseptal inflammatory change in the right periorbital soft tissues centered at the right nasolacrimal duct. No post septal orbital inflammatory change. Electronically signed by: Melecio Wilson M.D. 06/22/2017 3:18 PM Dictated Date/Time: 06/22/2017 3:14 PM
[2017-06-22 15:20] LABS: ALBUMIN 3.8 gm/dl (3.4-5.0); CALCIUM 9.3 mg/dl (8.5-10.1); CREATININE 0.91 mg/dl (0.60-1.40); POTASSIUM 4.1 mmol/L (3.5-5.1)
[2017-06-22 15:22] LABS: TOTAL PROTEIN 8.8 gm/dl (6.4-8.2)
[2017-06-22] MEDS ORDERED: WARF4TAB8 PO ×2 (15:23)
[2017-06-22] MEDS ORDERED: CLINDAMYCIN IV ONE (15:45)
[2017-06-22] MEDS ORDERED: DEXTROSE 5% IV ONE (15:45)
[2017-06-22] MEDS ORDERED: ACETAMINOPHEN 325 MG TAB PO PRN (16:30)
[2017-06-22] MEDS ORDERED: ZOLPIDEM TARTRATE 5 MG TAB PO PRN (16:30)
[2017-06-22] MEDS ORDERED: ONDANSETRON INJ 2 MG/ML 2 ML VIAL IV PRN (16:30)
[2017-06-22] MEDS ORDERED: MAGNESIUM HYDROXIDE SUSP 30 ML UDC PO PRN (16:30)
[2017-06-22] MEDS ORDERED: ALUMINUM/MAGNESIUM/SIMETH (MAALOX MAX) 30 ML UDC PO PRN (16:30)
[2017-06-22] MEDS ORDERED: DOXYCYCLINE HYCLATE 100 MG in DEXTROSE 5% 100ML IV SCH (16:30)
[2017-06-22] MEDS ORDERED: HYDROCODONE/ACETAMIN 5/325MG TAB PO PRN (16:30)
[2017-06-22 16:40] VITALS: O2SAT 97; Ht 170.2 cm; Wt 77.0 kg
--- NOTE | 2017-06-22 16:49 | History and Physical ---
History & Physical Date of Service Jun 22, 2017. History & Physical right nasolacrimal duct facila cellulitis, [id number]
[2017-06-22 17:15] VITALS: O2SAT 97
[2017-06-22] MEDS ORDERED: POLYETHYLENE (MIRALAX) 17 GM PACK PO PRN (17:15)
[2017-06-22] MEDS ORDERED: DOCUSATE SODIUM 100 MG CAP PO PRN (17:15)
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
[2017-06-22 19:13] VITALS: BP 135/75; PULSE 71; TEMP 36.7; O2SAT 96
[2017-06-22] MEDS: CARVEDILOL 3.125 MG TAB PO SCH (21:44)
[2017-06-22] MEDS: SPIRONOLACTONE 25 MG TAB PO SCH (21:44)
[2017-06-22] MEDS: DIGOXIN 0.125 MG TAB PO SCH (21:48)
[2017-06-22 23:45] VITALS: BP 110/63; PULSE 57; TEMP 36.7; O2SAT 97
[2017-06-23] MEDS: CLINDAMYCIN IV 600 MG in DEXTROSE 5% 50ML 50 ML IV SCH ×3 (00:18→15:59)
[2017-06-23] MEDS: LEVOTHYROXINE 88 MCG TAB PO SCH (05:12)
[2017-06-23] MEDS: DOXYCYCLINE IV 100 MG in DEXTROSE 5% 100ML 100 ML IV SCH ×2 (05:12→17:13)
[2017-06-23 06:02] LABS: BASO % 0.3 %; BASO ABS # 0.02 K/uL (0-0.2); EOS % 5.3 %; EOS ABS # 0.42 K/uL (0-0.5); HEMATOCRIT 36.7 % (42-52); HEMOGLOBIN 12.2 g/dL (14.0-18.0); IG# 0.03 K/uL (0.00-0.02); INR 1.8 (0.9-1.1); LYMPH % 22.2 %; LYMPH ABS # 1.77 K/uL (1.2-3.4); MEAN CELL VOLUME 94.8 fL (80-100); MEAN CORPUSCULAR HEMOGLOBIN 31.5 pg (25-34); MEAN CORPUSCULAR HGB CONC 33.2 g/dl (32-36); MEAN PLATELET VOLUME 9.8 fL (7.4-10.4); MONO % 11.7 %; MONO ABS # 0.93 K/uL (0.11-0.59); NEUT % 60.1 %; PLATELET COUNT 143 K/uL (130-400); RED CELL DISTRIBUTION WIDTH CV 13.8 % (11.5-14.5); RED CELL DISTRIBUTION WIDTH SD 47.7 fL (36.4-46.3); WHITE BLOOD COUNT 7.97 K/uL (4.8-10.8)
[2017-06-23 06:38] LABS: CALCIUM 8.7 mg/dl (8.5-10.1); CREATININE 0.78 mg/dl (0.60-1.40); PHOSPHORUS 3.9 mg/dl (2.5-4.9)
[2017-06-23 07:40] VITALS: BP 137/68; PULSE 70; TEMP 36.9; O2SAT 93
[2017-06-23] MEDS: SPIRONOLACTONE 25 MG TAB PO SCH ×2 (08:17→17:13)
[2017-06-23] MEDS: ATORVASTATIN 10 MG TAB PO SCH (08:18)
[2017-06-23] MEDS: CARVEDILOL 3.125 MG TAB PO SCH ×2 (08:18→20:48)
[2017-06-23] MEDS: SACCHAROMYCES BOUL (FLORASTOR) 250 MG CAP PO SCH (08:18)
[2017-06-23 08:25] VITALS: BP 120/75; PULSE 68
--- NOTE | 2017-06-23 09:59 | Progress Note ---
Subjective Date of Service: Jun 23, 2017. Subjective Pt evaluation today including: conversation w/ patient, physical exam, chart review, lab review, review of studies, review of inpatient medication list Pain: no pain reported PO Intake: good Voiding: no voiding problems Pt is seen and examined by me. Pt states his right pain improved since starting antibiotics and half of his swelling decrease because he can tell just by touching it. Pt denies any pain in the right eye on movement in all six direction, slight blurry vision because of unable to open eye completely. pt denies fever, chills, rigors and sweats. Problem List Medical Problems: (1) Bilateral lower leg cellulitis Status: Acute (2) C. difficile colitis Status: Acute (3) Cervical strain Status: Acute (4) Dacrocystitis Status: Acute (5) Diarrhea Status: Acute (6) Facial cellulitis Status: Acute (7) Fall Status: Acute (8) Fistula Status: Acute (9) Head trauma Status: Acute (10) Left wrist sprain Status: Acute (11) Perirectal abscess Status: Acute (12) Perirectal abscess Status: Acute (13) Perirectal cellulitis Status: Acute (14) Proctitis Status: Acute (15) Rectal abscess Status: Acute (16) Scalp abrasion Status: Acute (17) Septic olecranon bursitis of right elbow Status: Acute (18) Subtherapeutic international normalized ratio (INR) Status: Acute (19) Tremor Status: Acute (20) Urinary retention Status: Acute (21) Weakness Status: Acute Review of Systems Eyes: + problem reported (right eye swelling and erythema), No worsening of vision, No eye pain, No discharge All Other Systems: Reviewed and Negative Medications Medications (Trade) Dose Ordered Sig/Baldo Route Start Time Stop Time Status Last Admin Dose Admin Clindamycin Phosphate 600 mg/ Dextrose 104 ml @ 100 mls/hr ONE ONCE IV 06/22/17 15:45 06/22/17 16:47 DC 06/22/17 16:28 100 MLS/HR Doxycycline Hyclate 100 mg/ Dextrose 110 ml @ 55 mls/hr 1630 IV 06/22/17 16:30 06/22/17 18:29 DC 06/22/17 17:08 55 MLS/HR Clindamycin Phosphate 600 mg/ Dextrose 54 ml @ 100 mls/hr Q8H IV 06/23/17 00:00 07/03/17 00:00 06/23/17 08:14 100 MLS/HR Doxycycline Hyclate 100 mg/ Dextrose 110 ml @ 50 mls/hr Q12H IV 06/23/17 05:00 07/03/17 04:59 06/23/17 05:12 50 MLS/HR Atorvastatin Calcium (Lipitor Tab) 10 mg DAILY PO 06/23/17 09:00 07/23/17 08:59 06/23/17 08:18 10 MG Carvedilol (Coreg Tab) 3.125 mg AMHS PO 06/22/17 21:00 07/22/17 20:59 06/23/17 08:18 3.125 MG Digoxin (Lanoxin Tab) 0.125 mg DAILY@1600 PO 06/22/17 21:00 07/22/17 20:59 06/22/17 21:48 0.125 MG Levothyroxine Sodium (Synthroid Tab) 88 mcg DAILYBB PO 06/23/17 06:30 07/23/17 06:59 06/23/17 05:12 88 MCG Spironolactone (Aldactone Tab) 25 mg BID17 PO 06/22/17 21:00 07/22/17 20:59 06/23/17 08:17 25 MG Acetaminophen/ Hydrocodone Bitart ([place] 5/325 Tab) 1 tab Q8H PRN PO 06/22/17 16:30 07/06/17 16:29 06/23/17 08:24 1 TAB Saccharomyces Boulardii (Florastor Cap) 250 mg DAILY PO 06/23/17 09:00 07/23/17 08:59 06/23/17 08:18 250 MG Objective Vital Signs Date Time Temp Pulse Resp B/P (MAP) Pulse Ox O2 Delivery O2 Flow Rate FiO2 06/23/17 07:40 36.9 70 16 137/68 (91) 93 Room Air 06/23/17 01:02 Room Air 06/22/17 23:45 36.7 57 18 110/63 (79) 97 Room Air 06/22/17 21:48 64 06/22/17 19:13 36.7 71 18 135/75 (95) 96 Room Air 06/22/17 17:15 67 18 152/88 97 Room Air 06/22/17 16:40 97 Room Air 06/22/17 16:30 80 18 158/99 100 Room Air 06/22/17 13:45 36.7 73 16 195/95 99 Room Air Physical Exam Comments: GENERAL: The patient is awake, alert, and orientated, in no acute distress, resting comfortably. HEENT: improvement in swelling Right conjunctiva slight injection. swelling in the right tear duct with a significant dacryocystitis. decrease redness extension into right cheek, preparing box tender and there was a purulent drainage. Right eye movement is normal, denied pain when had eye movement. NECK: Supple. LUNGS: Clear. There was no wheezing, rhonchi or crackles. HEART: Regular rhythm, no murmur, no gallop. S1, S2. ABDOMEN: Soft, nontender. Bowel sound was positive. Bilateral CVA was nontender. BACK: Lower back is nontender. MUSCULOSKELETAL: Normal range of motion. SKIN: There is severe venous stasis, bilateral lower extremities that was oozing and wet, in bilateral Lower extremities were red and oozing fluid, associated with superficial skin break down, which is not new. NEUROLOGICAL EVALUATION: Cranial nerves II-XII was intact. There were no local deficits. Laboratory Results Last 24 Hours Test 06/22/17 14:38 06/22/17 16:22 06/23/17 05:43 White Blood Count 9.66 K/uL 7.97 K/uL Red Blood Count 4.41 M/uL 3.87 M/uL Hemoglobin 14.1 g/dL 12.2 g/dL Hematocrit 42.7 % 36.7 % Mean Corpuscular Volume 96.8 fL 94.8 fL Mean Corpuscular Hemoglobin 32.0 pg 31.5 pg Mean Corpuscular Hemoglobin Concent 33.0 g/dl 33.2 g/dl Platelet Count 161 K/uL 143 K/uL Mean Platelet Volume 10.4 fL 9.8 fL Neutrophils (%) (Auto) 68.2 % 60.1 % Lymphocytes (%) (Auto) 17.3 % 22.2 % Monocytes (%) (Auto) 10.6 % 11.7 % Eosinophils (%) (Auto) 3.4 % 5.3 % Basophils (%) (Auto) 0.2 % 0.3 % Neutrophils # (Auto) 6.59 K/uL 4.80 K/uL Lymphocytes # (Auto) 1.67 K/uL 1.77 K/uL Monocytes # (Auto) 1.02 K/uL 0.93 K/uL Eosinophils # (Auto) 0.33 K/uL 0.42 K/uL Basophils # (Auto) 0.02 K/uL 0.02 K/uL RDW Standard Deviation 48.3 fL 47.7 fL RDW Coefficient of Variation 13.6 % 13.8 % Immature Granulocyte % (Auto) 0.3 % 0.4 % Immature Granulocyte # (Auto) 0.03 K/uL 0.03 K/uL Prothrombin Time 18.2 SECONDS 19.0 SECONDS Prothromb Time International Ratio 1.8 1.8 Activated Partial Thromboplast Time 42.5 SECONDS Partial Thromboplastin Ratio 1.6 Sodium Level 135 mmol/L 136 mmol/L Potassium Level 4.1 mmol/L 4.0 mmol/L Chloride Level 100 mmol/L 102 mmol/L Carbon Dioxide Level 27 mmol/L 29 mmol/L Anion Gap 8.0 mmol/L 5.0 mmol/L Blood Urea Nitrogen 16 mg/dl 16 mg/dl Creatinine 0.91 mg/dl 0.78 mg/dl Est Creatinine Clear Calc Drug Dose 66.6 ml/min 77.7 ml/min Estimated GFR () 95.9 103.1 Estimated GFR (Non- 82.7 88.9 BUN/Creatinine Ratio 18.1 20.6 Random Glucose 92 mg/dl 90 mg/dl Calcium Level 9.3 mg/dl 8.7 mg/dl Total Bilirubin 0.6 mg/dl Direct Bilirubin 0.2 mg/dl Aspartate Amino Transf (AST/SGOT) 22 U/L Alanine Aminotransferase (ALT/SGPT) 19 U/L Alkaline Phosphatase 86 U/L Total Protein 8.8 gm/dl Albumin 3.8 gm/dl Digoxin Level 1.2 ng/ml Phosphorus Level 3.9 mg/dl Magnesium Level 1.8 mg/dl C-Reactive Protein 7.94 mg/dl Assessment and Plan Nasolacrimal duct infection associated with cellulitis, possible abscess with pus oozing. Improving, no acute pain in the ocular muscle of the eye on eye movements -- Currently, has no signs of sepsis of affected eyes or orbital cellulitis, -- Continue IV antibiotic with anaerobic coverage. -- Clindamycin and doxycycline -- If not getting better, the patient needs to be referral transferred to [place] or [facility]. -- Per shipper receiver, the tear duct reconstruction surgeon in [place] possible Dr. Bean, and at [facility] Dr. Mckeon. -- resume Coumadin for now and follow up INR. -- Cultures of the right tear duct was sent and pending aFib, CAD, -- Will continue home medications -- Coreg, and digoxin. Dyslipidemia, -- continue Lipitor. Hypothyroidism, -- continue levothyroxine. bilateral lower extremity wounds. -- wound care consult pending DVT coumadin Gi: Diet Continued [facility] stay due to: multiple IV medications needed Discharge planning: home
[2017-06-23 15:31] VITALS: BP 135/83; PULSE 59; TEMP 36.4; O2SAT 96
[2017-06-23] MEDS: WARFARIN SOD 5 MG TAB PO SCH (16:00)
[2017-06-23] MEDS: DIGOXIN 0.125 MG TAB PO SCH (17:12)
[2017-06-23 20:48] VITALS: BP 132/77; PULSE 71
[2017-06-23 23:50] VITALS: BP 130/68; PULSE 60; TEMP 36.5; O2SAT 93
[2017-06-24] MEDS: CLINDAMYCIN IV 600 MG in DEXTROSE 5% 50ML 50 ML IV SCH ×3 (00:22→15:50)
[2017-06-24] MEDS: LEVOTHYROXINE 88 MCG TAB PO SCH (05:32)
[2017-06-24] MEDS: DOXYCYCLINE IV 100 MG in DEXTROSE 5% 100ML 100 ML IV SCH (05:33)
[2017-06-24 07:28] VITALS: BP 123/76; PULSE 73; TEMP 36.3; O2SAT 95
[2017-06-24 07:49] LABS: BASO % 0.3 %; BASO ABS # 0.02 K/uL (0-0.2); EOS % 5.6 %; EOS ABS # 0.36 K/uL (0-0.5); HEMATOCRIT 37.3 % (42-52); HEMOGLOBIN 12.8 g/dL (14.0-18.0); IG# 0.01 K/uL (0.00-0.02); LYMPH % 21.7 %; MEAN CELL VOLUME 93.3 fL (80-100); MEAN CORPUSCULAR HGB CONC 34.3 g/dl (32-36); MONO % 10.5 %; MONO ABS # 0.68 K/uL (0.11-0.59); NEUT % 61.7 %; NEUT ABS # 3.98 K/uL (1.4-6.5); PLATELET COUNT 166 K/uL (130-400); RED CELL DISTRIBUTION WIDTH CV 13.5 % (11.5-14.5); RED CELL DISTRIBUTION WIDTH SD 46.2 fL (36.4-46.3); WHITE BLOOD COUNT 6.45 K/uL (4.8-10.8)
[2017-06-24 07:55] LABS: INR 1.9 (0.9-1.1)
[2017-06-24] MEDS: ATORVASTATIN 10 MG TAB PO SCH (08:00)
[2017-06-24] MEDS: SACCHAROMYCES BOUL (FLORASTOR) 250 MG CAP PO SCH (08:00)
[2017-06-24] MEDS: CARVEDILOL 3.125 MG TAB PO SCH (08:01)
[2017-06-24] MEDS: SPIRONOLACTONE 25 MG TAB PO SCH (08:01)
[2017-06-24] MEDS ORDERED: EUCERIN CR 120 GM JAR EXT PRN (09:45)
[2017-06-24] MEDS ORDERED: NURSING VERBAL MED ORDER ONE (09:45)
[2017-06-24] MEDS ORDERED: DOXY-300 PO (11:51)
--- NOTE | 2017-06-24 11:58 | Discharge Instructions ---
Discharge Instructions Date of Service Jun 24, 2017. Admission Reason for Admission: Rt Nasolacrimal Duct Facila Cellulitis Discharge Discharge Diagnosis / Problem: Pre-orbital cellulitis right eye, nasolacrimal duct facila Discharge Goals Goal(s): Improve function, Improve disease control Activity Recommendations Activity Limitations: resume your previous activity . Instructions / Follow-Up Instructions / Follow-Up Medications: - DOXYCYCLINE: 100mg twice a day, next dose due this evening, continue taking until prescription complete, 12 more days - CLINDAMYCIN: 300mg four times a day for 5 more days Pre-orbital cellulitis, nasolacrimal duct blockage clinically resolved, skin is no longer tense, minimal tenderness, lots of drainage today no fevers, WBC is normal culture from drainage from the eye growing MSSA (sensitive Staph aureus) that can be treated with Doxycycline will continue Clindamycin for 5 more days as well for anaerobic coverage follow up with Dr. Valdovinos later this week for check up call his office for appointment Current Hospital Diet Patient's current hospital diet: AHA Diet (Heart Healthy), Low Sodium Diet (2gm Na) Discharge Diet Recommended Diet: AHA Diet (Heart Healthy), Low Sodium Diet (2gm Na) Pending Studies Studies pending at discharge: no Medical Emergencies . Who to Call and When: Medical Emergencies: If at any time you feel your situation is an emergency, please call 911 immediately. . Non-Emergent Contact Non-Emergency issues call your: Primary Care Provider Call Non-Emergent contact if: you have a fever, your pain is worsening, wound has increased drainage, wound has increased redness, you have any medication questions . . "Provider Documentation" section prepared by Dexter Pinedo. . [place] Drug Monitoring Program Search Results: no issues identified
[2017-06-24] MEDS ORDERED: CLIN1CAP51 PO (11:59)
[2017-06-24 12:23] VITALS: BP 123/76; PULSE 73; TEMP 36.3; O2SAT 95
--- NOTE | 2017-06-24 14:07 | Discharge Summary ---
Discharge Summary Date of Service Jun 24, 2017. Discharge Summary Admission Date: Jun 22, 2017 at 16:27 Discharge Date: Jun 24, 2017 Discharge Disposition: Home Principal Diagnosis: Right nasolacrimal duct blockage, cellulitis Problems/Secondary Diagnoses: Afib CAD Procedures: none Consultations: none Medication Reconciliation New Medications: Clindamycin HCl (Clindamycin HCl) 150 Mg Cap 2 CAP PO QID for 5 Days, #40 CAP Doxycycline (Monohydrate) (Doxycycline) 100 Mg Cap 100 MG PO BID for 12 Days, #24 CAP 0 Refills Continued Medications: Atorvastatin (Lipitor) 10 Mg Tab 10 MG PO DAILY, TAB Carvedilol (Coreg) 3.125 Mg Tab 3.125 MG PO AMHS, TAB Digoxin (Digoxin) 0.125 Mg Tab 0.125 MG PO QPM Docusate Sodium (Colace) 100 Mg Cap 1 CAP PO BID PRN for Constipation, CAP Levothyroxine Sodium (Levothyroxine Sodium) 88 Mcg Tab 88 MCG PO DAILY Potassium Chloride (Klor-Con Ext Rel) 8 Meq Tabcr 8 MEQ PO AMHS Spironolactone (Spironolactone) 25 Mg Tab 25 MG PO AMHS Warfarin Sod (Jantoven) 4 Mg Tab 4 MG PO 4XWK, TAB SATURDAY, SATURDAY, SATURDAY, SATURDAY Warfarin Sod (Jantoven) 4 Mg Tab 2 MG PO 3XWK, TAB SATURDAY, SATURDAY, SATURDAY Discharge Exam Patient feeling much better, lots of drainage since last night. Applying warm compresses and drainage improved. Pain greatly reduced, almost no pain at all. Vision is only slightly blurry, markedly improved since admission. patient would like to go home discussed going on Clindamycin and Doxycycline, close follow up with PCP Review of Systems: Constitutional: No fever, No chills, No sweats, No weight loss, No weakness , No fatigue, No problem reported Eyes: + problem reported (right eye pain nearly resolved, vision is nearly back to baseline), No worsening of vision, No eye pain, No redness, No discharge , No diplopia ENT: No hearing loss, No unusual epistaxis, No nasal symptoms, No sore throat, No tinnitus, No dental problems, No trouble swallowing, No problem reported Respiratory: No cough, No sputum, No wheezing, No shortness of breath, No dyspnea on exertion, No dyspnea at rest, No hemoptysis, No problem reported Cardiovascular: No chest pain, No orthopnea, No PND, No edema, No claudication, No palpitations, No problem reported Abdomen: No pain, No nausea, No vomiting, No diarrhea, No constipation, No GI bleeding, No problem reported Musculoskeletal: No joint pain, No muscle pain, No swelling, No calf pain, No problem reported Genitourinary - Male: No hematuria, No dysuria, No urinary frequency, No urinary urgency Neurologic: No memory loss, No paralysis, No weakness, No numbness/tingling , No vertigo, No balance problems, No problem reported Psychiatric: No depression symptoms, No anhedonism, No anxiety, No insomnia , No substance abuse, No problem reported Hematologic / Lymphatic: No abnormal bleeding/bruising, No clotting problems , No swollen lymph nodes, No night sweats, No problem reported Integumentary: + rash (markedly improved per patient), No itch, No new/ changing skin lesions, No color change, No bleeding, No problem reported Physical Exam: General Appearance: WD/WN, no apparent distress Eyes: normal inspection, PERRL, EOMI, sclerae normal ENT: normal ENT inspection, hearing grossly normal, pharynx normal Neck: supple, no adenopathy, no JVD, trachea midline Respiratory/Chest: chest non-tender, lungs clear, normal breath sounds, no respiratory distress, no accessory muscle use Cardiovascular: regular rate, rhythm, no edema, no gallop, no JVD, no murmur , normal peripheral pulses Abdomen / GI: normal bowel sounds, non tender, soft, no organomegaly Extremities: normal inspection, no calf tenderness, normal capillary refill , no pedal edema, normal range of motion, pelvis stable Neurologic/Psychiatric: manager editorial II-XII nml as tested, no motor/sensory deficits , alert, normal mood/affect, normal reflexes, oriented x 3 Skin: normal color, warm/dry, + rash (mild erythema, no pain on palpation, skin no longer tense, skin by nasolacrimal duct draining) Lymphatic: no adenopathy Hospital Course Nasolacrimal duct infection associated with cellulitis marked improvement over past 48 hours no pain, no fever, WBC normal, lacrimal duct is draining excellent response to Clindamycin and Doxycycline culture from eye grew MSSA visual acuity intact, no eye pain will complete 5 more days of Clindamycin and 12 more days of Doxycycline (14 days total) follow up with PCP later this week if eye would get worse, ophthomology recommends referral to [place] (Dr. Bean) or [place] (Dr. Mckeon) aFib, CAD, -- Will continue home medications -- Coreg, and digoxin. -- Coumadin resumed Dyslipidemia, -- continue Lipitor. Hypothyroidism, -- continue levothyroxine. DVT coumadin Gi: Diet Total Time Spent: Greater than 30 minutes This includes examination of the patient, discharge planning, medication reconciliation, and communication with other providers. Discharge Instructions Please refer to the electronic Patient Visit Report (Discharge Instructions) for additional information. Follow-Up Dr. Valdovinos later this week Additional Copies To Toro Vasquez M.D.
[2017-06-24] MEDS: DIGOXIN 0.125 MG TAB PO SCH (15:50)
[2017-06-24] MEDS: WARFARIN SOD 5 MG TAB PO SCH (15:50)
== END 2017-06-24 15:15 | disposition home or self-care (01) | DRG 603 ==
LOC: C.EDB 13:40 → C.MS2W 16:27 → ENRESERV 17:01 → EDBEDREQ 17:23
PROVIDERS: ADMIT Hospitalist; ATTEND Internal Medicine
DX: L03.211 Cellulitis of face (principal); H04.301 Unspecified dacryocystitis of right lacrimal passage; I48.91 Unspecified atrial fibrillation; I25.10 Atherosclerotic heart disease of native coronary artery without angina pectoris; I10 Essential (primary) hypertension; E03.9 Hypothyroidism, unspecified; I87.8 Other specified disorders of veins; B95.61 Methicillin susceptible Staphylococcus aureus infection as the cause of diseases classified elsewhere; Z79.01 Long term (current) use of anticoagulants; Z79.899 Other long term (current) drug therapy; Z87.891 Personal history of nicotine dependence; Z88.0 Allergy status to penicillin; Z88.1 Allergy status to other antibiotic agents; Z88.5 Allergy status to narcotic agent

== ENCOUNTER 2017-12-06 16:20 | Observation (INO) | payer OTHER ==
[~2017-12-06] VITALS: Ht 170.2 cm; Wt 78.5 kg
[~2017-12-06 16:20] MED LIST changes: +DOXY-300 PO; -LEVO88TA3 PO; -POTA8CAP6 PO; +SPIR25TA6 PO; -SPR25 PO; -WARF-283 PO; +WARF4TAB8 PO
--- NOTE | 2017-12-06 17:18 | DIAGNOSTIC IMAGING REPORT ---
SINGLE VIEW CHEST CLINICAL HISTORY: Weakness. Change in mental status. FINDINGS: An AP, portable, upright chest radiograph is compared to study dated 03/29/2017. The examination is degraded by portable technique, apical lordotic positioning, and patient rotation. The heart is enlarged and there is atherosclerotic calcification of the thoracic aorta. The pulmonary vasculature is noncongested. Chronic interstitial thickening and elevation of left hemidiaphragm are unchanged. There is left basilar atelectasis. No airspace consolidation or large pleural effusion is identified. No pneumothorax is seen. The skeletal structures are osteopenic. The bony thorax is grossly intact. IMPRESSION: Cardiomegaly with no acute cardiopulmonary abnormality. Electronically signed by: Joel Olivo M.D. 12/06/2017 5:16 PM Dictated Date/Time: 12/06/2017 5:15 PM
[2017-12-06] MEDS ORDERED: POTA8CAP6 PO (17:44)
[2017-12-06] MEDS ORDERED: LEVO88TA3 PO (17:44)
[2017-12-06 18:07] LABS: BASO % 0.4 %; BASO ABS # 0.03 K/uL (0-0.2); EOS % 7.6 %; EOS ABS # 0.55 K/uL (0-0.5); HEMATOCRIT 39.9 % (42-52); HEMOGLOBIN 13.4 g/dL (14.0-18.0); IG# 0.01 K/uL (0.00-0.02); LYMPH ABS # 1.38 K/uL (1.2-3.4); MEAN CELL VOLUME 96.1 fL (80-100); MEAN CORPUSCULAR HEMOGLOBIN 32.3 pg (25-34); MEAN CORPUSCULAR HGB CONC 33.6 g/dl (32-36); MEAN PLATELET VOLUME 10.1 fL (7.4-10.4); MONO % 8.7 %; MONO ABS # 0.63 K/uL (0.11-0.59); NEUT % 64.2 %; NEUT ABS # 4.65 K/uL (1.4-6.5); PLATELET COUNT 171 K/uL (130-400); RED CELL DISTRIBUTION WIDTH CV 13.7 % (11.5-14.5); WHITE BLOOD COUNT 7.25 K/uL (4.8-10.8)
[2017-12-06 18:19] LABS: INR 1.3 (0.9-1.1); PTT PATIENT 32.7 SECONDS (21.0-31.0)
[2017-12-06 18:36] LABS: ALBUMIN 3.7 gm/dl (3.4-5.0); ALKALINE PHOSPHATASE 75 U/L (45-117); ALT/SGPT 14 U/L (12-78); AST/SGOT 20 U/L (15-37); BLOOD UREA NITROGEN 17 mg/dl (7-18); CARBON DIOXIDE 29 mmol/L (21-32); CREATININE 1.01 mg/dl (0.60-1.40); GLUCOSE 89 mg/dl (70-99); POTASSIUM 4.4 mmol/L (3.5-5.1); SODIUM 137 mmol/L (136-145); TOTAL PROTEIN 8.5 gm/dl (6.4-8.2)
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
[2017-12-06] MEDS ORDERED: DAPTOmycin IV 480 MG in SODIUM CHLORIDE 0.9% 50ML 50 ML IV STA (20:26)
[2017-12-06] MEDS ORDERED: DOCUSATE SODIUM 100 MG CAP PO PRN (21:15)
[2017-12-06] MEDS ORDERED: ACETAMINOPHEN 325 MG TAB PO PRN (21:15)
[2017-12-06] MEDS ORDERED: ONDANSETRON INJ 2 MG/ML 2 ML VIAL IV PRN (21:15)
[2017-12-06] MEDS ORDERED: IV FLUIDS COMPLETED PRN (21:30)
--- NOTE | 2017-12-06 21:34 | History and Physical ---
History & Physical Date & Time of Service: Dec 06, 2017 at 21:12 Chief Complaint: Wound On Leg Primary Care Physician: Evans Magaña D.O. History of Present Illness Source: patient Mr. Doe is a pleasant 77yo male with history of AF on Coumadin anticoagulation, CAD s/p stent placement, HLP, Hypothyroidism, HTN, Venous stasis presenting with worsening edema in his bilateral LE as well as weeping wounds. Patient has chronic venous with bilateral LE edema R > L at baseline. He reports that over the last 3-4 days he has been having increased swelling in his legs. This AM he noted increased drainage and pain from his RLE and new fluid filled lesions. Patient denies fevers but has been having some chills and nausea. He has had wound care services appx one year ago for his legs. ER Course: Daptomycin Past Medical/Surgical History Medical Problems: Atrial fibrillation Anticoagulation with coumadin CAD HLP Hypothyroidism Venous stasis Hypertension History of C.diff Right nasolacrimal duct cellulitis Surgical Problems: (1) History of cataract surgery (2) History of colon resection (3) Cardiac stent placement Family History Cancer Diabetes mellitus Gallbladder disease Heart disease Kidney disease Kidney stones Lung disease Social History Smoking Status: Never Smoker Smokeless Tobacco Use: Yes Alcohol Use: none Drug Use: none Marital Status: Housing status: lives with family Occupational Status: retired Allergies Coded Allergies: Amoxicillin (Verified Allergy, Intermediate, RASH, ITCHING, 06/22/17) Cephalexin (Verified Allergy, Intermediate, RASH,ITCHING, 06/22/17) Ciprofloxacin (Verified Allergy, Intermediate, RASH, 06/22/17) Patient becomes itchy/arm becomes reddened Clavulanic Acid (Verified Allergy, Intermediate, RASH, ITCHING, 06/22/17) Penicillins (Verified Allergy, Intermediate, AUGMENTIN-RASH,ITCHING, ) Morphine (Verified Allergy, Mild, RASH, 06/22/17) Home Medications Scheduled Atorvastatin (Lipitor), 10 MG PO DAILY Carvedilol (Coreg), 3.125 MG PO BIDM Digoxin (Digoxin), 0.125 MG PO QPM Levothyroxine Sodium (Levothyroxine Sodium), 88 MCG PO DAILY Potassium Chloride (Klor-Con Ext Rel), 8 MEQ PO AMHS Spironolactone (Spironolactone), 25 MG PO AMHS Warfarin Sod (Jantoven), 4 MG PO 4XWK Warfarin Sod (Jantoven), 2 MG PO 3XWK Scheduled PRN Docusate Sodium (Colace), 1 CAP PO BID PRN for Constipation Review of Systems Constitutional: + chills, + sweats, No fever Eyes: No worsening of vision ENT: No sore throat Respiratory: No cough, No shortness of breath Cardiovascular: No chest pain, No palpitations Abdomen: + nausea, No pain, No vomiting, No diarrhea, No constipation Musculoskeletal: No joint pain Genitourinary - Male: No hematuria, No dysuria Neurologic: No weakness Endocrine: No fatigue Hematologic / Lymphatic: No abnormal bleeding/bruising Integumentary: No rash Physical Exam Vital Signs Date Time Temp Pulse Resp B/P (MAP) Pulse Ox O2 Delivery O2 Flow Rate FiO2 12/06/17 20:21 65 23 149/71 98 Room Air 12/06/17 19:30 52 24 120/72 97 Room Air 12/06/17 18:10 56 18 141/69 96 Room Air 12/06/17 18:10 97 Room Air 12/06/17 18:10 97 Room Air 12/06/17 17:24 48 12/06/17 16:23 36.7 67 18 135/76 94 Room Air General: patient resting comfortably in bed, non-toxic iin appearance, NAD, AA& O x 4 HEENT: NC/AT, left pupil irregular and unreactive to light, right pupil round and reactive, EOMI, anicteric sclera, conjunctiva without injection, nares patent, moist mucus membranes, no oropharyngeal lesions, neck supple, trachea midline, no thyromegaly, no LAD Heart: +S1/S2, irregularly irregular, no m/r/g Lungs: equal air entry bilaterally, mild crackles in bilateral bases Abdomen: soft, NT/ND, no masses/organomegaly/ascites Extremities: warm, well perfused, 2+ pulses in bilateral UE. RLE with 2+ pitting edema to the knee, slightly warm to touch, evidence of chronic venous stasis with dermatitis - hemosiderin staining, thickened woody skin, red open area on medial portion of calf, scattered areas of weeping serosanguinous drainage, fluid filled bullae x , 1+ pulses LLE with 1+ pitting edema, slightly warm to touch, chronic venous stasis changes as above, areas of desquamation at ankle. Onychomycosis bilaterally. 1 + pulses. No crepitus, no abscess, no lymphangitic streaking Neuro: grossly intact. Diagnostics Laboratory Results Results Past 24 Hours Test 12/06/17 17:50 12/06/17 19:25 Range/Units White Blood Count 7.25 4.8-10.8 K/uL Red Blood Count 4.15 4.7-6.1 M/uL Hemoglobin 13.4 14.0-18.0 g/dL Hematocrit 39.9 42-52 % Mean Corpuscular Volume 96.1 80-100 fL Mean Corpuscular Hemoglobin 32.3 25-34 pg Mean Corpuscular Hemoglobin Concent 33.6 32-36 g/dl Platelet Count 171 130-400 K/uL Mean Platelet Volume 10.1 7.4-10.4 fL Neutrophils (%) (Auto) 64.2 % Lymphocytes (%) (Auto) 19.0 % Monocytes (%) (Auto) 8.7 % Eosinophils (%) (Auto) 7.6 % Basophils (%) (Auto) 0.4 % Neutrophils # (Auto) 4.65 1.4-6.5 K/uL Lymphocytes # (Auto) 1.38 1.2-3.4 K/uL Monocytes # (Auto) 0.63 0.11-0.59 K/uL Eosinophils # (Auto) 0.55 0-0.5 K/uL Basophils # (Auto) 0.03 0-0.2 K/uL RDW Standard Deviation 48.0 36.4-46.3 fL RDW Coefficient of Variation 13.7 11.5-14.5 % Immature Granulocyte % (Auto) 0.1 % Immature Granulocyte # (Auto) 0.01 0.00-0.02 K/uL Prothrombin Time 14.0 9.0-12.0 SECONDS Prothromb Time International Ratio 1.3 0.9-1.1 Activated Partial Thromboplast Time 32.7 21.0-31.0 SECONDS Partial Thromboplastin Ratio 1.3 Sodium Level 137 136-145 mmol/L Potassium Level 4.4 3.5-5.1 mmol/L Chloride Level 102 98-107 mmol/L Carbon Dioxide Level 29 21-32 mmol/L Anion Gap 6.0 3-11 mmol/L Blood Urea Nitrogen 17 7-18 mg/dl Creatinine 1.01 0.60-1.40 mg/dl Est Creatinine Clear Calc Drug Dose 59.1 ml/min Estimated GFR () 83.9 Estimated GFR (Non- 72.4 BUN/Creatinine Ratio 17.1 10-20 Random Glucose 89 70-99 mg/dl Calcium Level 9.0 8.5-10.1 mg/dl Magnesium Level 2.3 1.8-2.4 mg/dl Total Bilirubin 0.4 0.2-1 mg/dl Direct Bilirubin 0.1 0-0.2 mg/dl Aspartate Amino Transf (AST/SGOT) 20 15-37 U/L Alanine Aminotransferase (ALT/SGPT) 14 12-78 U/L Alkaline Phosphatase 75 45-117 U/L Troponin I < 0.015 0-0.045 ng/ml Total Protein 8.5 6.4-8.2 gm/dl Albumin 3.7 3.4-5.0 gm/dl Thyroid Stimulating Hormone (TSH) 1.430 0.300-4.500 uIu/ml Digoxin Level 1.0 0.8-2.0 ng/ml Urine Color YELLOW Urine Appearance CLEAR CLEAR Urine pH 5.0 4.5-7.5 Urine Specific [place] 1.026 1.000-1.030 Urine Protein NEG NEG Urine Glucose (UA) NEG NEG Urine Ketones TRACE NEG Urine Occult Blood NEG NEG Urine Nitrite NEG NEG Urine Bilirubin NEG NEG Urine Urobilinogen NEG NEG Urine Leukocyte Esterase NEG NEG Microbiology Results 12/06/17 Blood Culture, Received Pending 12/06/17 Blood Culture, Received Pending Diagnostic Radiology SINGLE VIEW CHEST CLINICAL HISTORY: Weakness. Change in mental status. FINDINGS: An AP, portable, upright chest radiograph is compared to study dated 03/29/2017. The examination is degraded by portable technique, apical lordotic positioning, and patient rotation. The heart is enlarged and there is atherosclerotic calcification of the thoracic aorta. The pulmonary vasculature is noncongested. Chronic interstitial thickening and elevation of left hemidiaphragm are unchanged. There is left basilar atelectasis. No airspace consolidation or large pleural effusion is identified. No pneumothorax is seen. The skeletal structures are osteopenic. The bony thorax is grossly intact. IMPRESSION: Cardiomegaly with no acute cardiopulmonary abnormality. Electronically signed by: Joel Olivo M.D. 12/06/2017 5:16 PM Dictated Date/Time: 12/06/2017 5:15 PM EKG Atrial fibrillation with slow ventricular rate at 54bpm, normal axis and intervals, no evidence of ischemia. No change from prior studies. Impression Assessment and Plan 77yo C male with cellulitis 1. Cellulitis - mild nonpurulent cellulitis superimposed on chronic venous stasis dermatitis. Patient afebrile, hemodynamically stable. No systemic signs of infection. No evidence of fasciitis. -Cultures sent from ER, will follow -Doxycycline 100 mg PO BID -Wound care consultation -Discharge planning evaluation for possible outpatient wound care 2. Worsening LE edema - patient denies SOB, orthopnea. Mild basilar crackles on exam. -Check BNP -Consider echocardiogram 3. Venous stasis dermatitis -Wound care consult as above 4. CAD - stable, no evidence of ischemia on EKG, troponin x 1 negative -Continue Atorvastatin, Coreg 5. AF - bradycardic at present, asymptomatic -Continue Coreg, Digoxin -Continue Coumadin, presently subtherapeutic at 1.3. No adjustment in dosage at this time as Doxycycline may increase INR -Daily INR 6. Hypertension - patient mildly hypertensive at 149/71 -Continue to monitor -Continue Coreg, Spironolactone 7. Hypothyroidism- stable, chronic. TSH=1.43 -Continue Synthroid 8. F/E/N - Heplock. Monitor electrolytes and replete as needed. AHA diet as tolerated. Colace PRN. 9. Ppx - Patient on Coumadin anticoagulation 10. Code - Full 11. Dispo - observation to medical floor. Antibiotics, wound care, monitoring Resuscitation Status Full code VTE Prophylaxis Will order VTE Prophylaxis: No Reason for no VTE drug order: Treatment not indicated Reason no Mechanical VTE Order: Treatment not indicated
[2017-12-06 22:12] VITALS: BP 149/71; PULSE 56; TEMP 36.7; O2SAT 95; Ht 170.2 cm; Wt 78.5 kg
[2017-12-07] MEDS: LEVOTHYROXINE 88 MCG TAB PO SCH (06:04)
[2017-12-07 06:24] LABS: BASO % 0.6 %; BASO ABS # 0.04 K/uL (0-0.2); EOS % 9.2 %; EOS ABS # 0.63 K/uL (0-0.5); HEMATOCRIT 37.1 % (42-52); HEMOGLOBIN 11.9 g/dL (14.0-18.0); IG# 0.02 K/uL (0.00-0.02); LYMPH % 22.5 %; LYMPH ABS # 1.54 K/uL (1.2-3.4); MEAN CELL VOLUME 96.1 fL (80-100); MEAN CORPUSCULAR HEMOGLOBIN 30.8 pg (25-34); MEAN CORPUSCULAR HGB CONC 32.1 g/dl (32-36); MEAN PLATELET VOLUME 10.6 fL (7.4-10.4); MONO ABS # 0.75 K/uL (0.11-0.59); NEUT % 56.4 %; NEUT ABS # 3.86 K/uL (1.4-6.5); PLATELET COUNT 166 K/uL (130-400); RED CELL DISTRIBUTION WIDTH CV 13.6 % (11.5-14.5); RED CELL DISTRIBUTION WIDTH SD 47.7 fL (36.4-46.3); WHITE BLOOD COUNT 6.84 K/uL (4.8-10.8)
[2017-12-07 06:31] LABS: INR 1.4 (0.9-1.1)
[2017-12-07 06:51] LABS: CALCIUM 8.3 mg/dl (8.5-10.1); CREATININE 0.87 mg/dl (0.60-1.40)
[2017-12-07 07:41] VITALS: BP 120/75; PULSE 63; TEMP 36.7; O2SAT 94
[2017-12-07] MEDS: ATORVASTATIN 10 MG TAB PO SCH (09:16)
[2017-12-07] MEDS: DOXYCYCLINE HYCLATE 100 MG CAP PO SCH ×2 (09:16→19:51)
[2017-12-07] MEDS: CARVEDILOL 3.125 MG TAB PO SCH ×2 (09:17→16:44)
[2017-12-07] MEDS: SPIRONOLACTONE 25 MG TAB PO SCH ×2 (09:17→19:51)
[2017-12-07] MEDS ORDERED: FUROSEMIDE INJ 20 MG in SYRINGE 0 ML IV ONE (14:15)
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
[2017-12-07] MEDS: WARFARIN SOD 4 MG TAB PO SCH (15:52)
[2017-12-07 15:53] VITALS: BP 117/77; PULSE 66; TEMP 36.9; O2SAT 97
[2017-12-07 16:43] VITALS: BP 135/76; PULSE 74
--- NOTE | 2017-12-07 17:17 | ECHOCARDIOGRAM REPORT ---
*NOTICE TO RECEIVING DEMOCRAT AGENCY This information is strictly Confidential and protected under [place] law. [place] law prohibits you from making any further disclosure of this information unless further disclosure is expressly permitted by the written consent of the person to whom it pertains or is authorized by law. A general authorization for the release of medical or other information is not sufficient for this purpose. Hospital accepts no responsibility if the information is made available to any other person, INCLUDING THE PATIENT. Interpretation Summary * Name: FERNANDO COVARRUBIAS Study Date: 12/07/2017 03:17 PM BP: 117/77 mmHg * Patient Location: .[facility]\S\N287\S\2 HR: 72 * : 1940 (M/d/yyyy) Gender: Male Height: 67 in * Age: 77 yrs Ethnicity: CA Weight: 173 lb * Ordering Physician: Mohsen Mayorga * Referring Physician: Self, Referred * Performed By: Radha Pham [facility] * * Reason For Study: CHF * BSA: 1.9 m2 * -- Conclusions -- * 1. Normal LV size, mild concentric LVH. * 2. LVEF 60-65%. No regional wall motion abnormalities. * 3. Normal RV size and function. * 4. No significant valvular pathology. * 5. No prior studies for comparison. Procedure Details * A complete two-dimensional transthoracic echocardiogram was performed (2D, M-mode, Doppler and color flow Doppler). Left Ventricle * The left ventricle is grossly normal size. * There is mild concentric left ventricular hypertrophy. * Ejection Fraction = 60-65%. * No regional wall motion abnormalities noted. Right Ventricle * The right ventricle is grossly normal size. * The right ventricular systolic function is normal as assessed by tricuspid annular plane systolic excursion (TAPSE) (normal >1.5 cm). Atria * Borderline left atrial enlargement. * The right atrium is mildly dilated. * No ASD detected; PFO is not assessed. Mitral Valve * The mitral valve is not well visualized. * There is no mitral valve stenosis. * There is trace mitral regurgitation. Tricuspid Valve * The tricuspid valve is not well visualized, but is grossly normal. * There is trace tricuspid regurgitation. Aortic Valve * The aortic valve is trileaflet. * No hemodynamically significant valvular aortic stenosis. * Trace aortic regurgitation. Pulmonic Valve * The pulmonary valve is inadequately visualized, but the Doppler data is adequate for interpretation. * Pulmonic stenosis is absent. * There is no significant pulmonary regurgitation. Great Vessels * The aortic root and proximal ascending aorta are normal sized. Pericardium/Pleural * Trivial pericardial effusion. MMode 2D Measurements and Calculations IVSd 1.4 cm IVSs 1.8 cm LVIDd 4.2 cm LVIDs 3.4 cm LVPWd 1.4 cm LVPWs 1.3 cm IVS/LVPW 0.98 FS 20.0 % EDV(Teich) 79.6 ml ESV(Teich) 46.7 ml EF(Teich) 41.3 % EDV(cubed) 75.3 ml ESV(cubed) 38.5 ml EF(cubed) 48.8 % % IVS thick 25.8 % % LVPW thick -12.44 % LV mass(C)d 229.9 grams LV mass(C)dI 120.9 grams/m\S\2 LV mass(C)s 185.8 grams LV mass(C)sI 97.7 grams/m\S\2 SV(Teich) 32.9 ml SI(Teich) 17.3 ml/m\S\2 SV(cubed) 36.8 ml SI(cubed) 19.3 ml/m\S\2 Ao root diam 3.8 cm Ao root area 11.3 cm\S\2 ACS 2.0 cm LA dimension 3.8 cm LA/Ao 10 LVOT diam 2.1 cm LVOT area 3.4 cm\S\2 LVAd ap4 23.4 cm\S\2 LVLd ap4 6.9 cm EDV(MOD-sp4) 65.0 ml EDV(sp4-el) 67.8 ml LVAs ap4 16.2 cm\S\2 LVLs ap4 5.8 cm ESV(MOD-sp4) 37.1 ml ESV(sp4-el) 38.6 ml EF(MOD-sp4) 42.9 % EF(sp4-el) 43.0 % LVAd ap2 20.0 cm\S\2 LVLd ap2 6.2 cm EDV(MOD-sp2) 51.9 ml EDV(sp2-el) 54.3 ml LVAs ap2 14.1 cm\S\2 LVLs ap2 5.6 cm ESV(MOD-sp2) 28.8 ml ESV(sp2-el) 30.5 ml EF(MOD-sp2) 44.6 % EF(sp2-el) 43.8 % LVLd %diff -10.33 % EDV(MOD-bp) 58.9 ml LVLs %diff -4.44 % ESV(MOD-bp) 33.3 ml EF(MOD-bp) 43.5 % SV(MOD-sp4) 27.9 ml SI(MOD-sp4) 14.7 ml/m\S\2 SV(MOD-sp2) 23.1 ml SI(MOD-sp2) 12.2 ml/m\S\2 SV(MOD-bp) 25.6 ml SI(MOD-bp) 13.5 ml/m\S\2 SV(sp4-el) 29.2 ml SI(sp4-el) 15.3 ml/m\S\2 SV(sp2-el) 23.8 ml SI(sp2-el) 12.5 ml/m\S\2 Doppler Measurements and Calculations MV E max roc 99.2 cm/sec MV P1/2t max roc 92.3 cm/sec MV P1/2t 65.1 msec MVA(P1/2t) 3.4 cm\S\2 MV dec slope 415.4 cm/sec\S\2 MV dec time 0.25 sec
[2017-12-07] MEDS ORDERED: DIGOXIN 0.125 MG TAB PO SCH (21:00)
[2017-12-08 00:02] VITALS: BP 128/71; PULSE 74; TEMP 36.8; O2SAT 95
[2017-12-08] MEDS: LEVOTHYROXINE 88 MCG TAB PO SCH (06:12)
[2017-12-08 06:41] LABS: INR 1.4 (0.9-1.1)
[2017-12-08 07:04] LABS: CALCIUM 8.8 mg/dl (8.5-10.1); CREATININE 0.92 mg/dl (0.60-1.40); POTASSIUM 3.8 mmol/L (3.5-5.1)
[2017-12-08 07:24] VITALS: BP 136/71; PULSE 39; TEMP 36.4; O2SAT 95
[2017-12-08] MEDS: ATORVASTATIN 10 MG TAB PO SCH (07:52)
[2017-12-08] MEDS: SPIRONOLACTONE 25 MG TAB PO SCH (07:52)
[2017-12-08] MEDS: DOXYCYCLINE HYCLATE 100 MG CAP PO SCH ×2 (07:52→17:17)
[2017-12-08] MEDS: CARVEDILOL 3.125 MG TAB PO SCH ×2 (07:52→16:34)
[2017-12-08] MEDS ORDERED: NURSING VERBAL MED ORDER ONE (12:00)
[2017-12-08] MEDS ORDERED: ENOXAPARIN 80 MG/0.8 ML SYR SQ SCH ×2 (12:15→12:30)
[2017-12-08] MEDS ORDERED: CMD3 PO (14:28)
--- NOTE | 2017-12-08 14:32 | Discharge Instructions ---
Discharge Instructions Date of Service Dec 08, 2017. Admission Reason for Admission: Cellulitis Discharge Discharge Diagnosis / Problem: Cellulitis Discharge Goals Goal(s): Decrease discomfort, Improve function Activity Recommendations Activity Limitations: resume your previous activity . Instructions / Follow-Up Instructions / Follow-Up You are being discharged from [facility] for your episode of cellulitis that arose in your legs from venous insufficiency ulcers. As your legs swelled up, the poor venous return causes ulcerations to form which eventually became infected. We are sending you home on the same oral antibiotics that you have been taking in hospital. Information on these antibiotics is attached. Please complete the course of antibiotics even if you'; re feeling better. Continue to be active and walk as tolerated as that will help the blood flow and bring down swellnig in yoru legs. If you notice new or expansive infected looking lesions or rashes on your leg please contact your primary care physician or return to see us. You are also being discharged on a altered dose of warfarin. Now on every day that you used to take 2 mg you will take 3 (MWF). Current Hospital Diet Patient's current hospital diet: AHA Diet (Heart Healthy) Discharge Diet Recommended Diet: AHA Diet (Heart Healthy) Pending Studies Studies pending at discharge: no Medical Emergencies . Who to Call and When: Medical Emergencies: If at any time you feel your situation is an emergency, please call 911 immediately. . Non-Emergent Contact Non-Emergency issues call your: Primary Care Provider . Past History Medical & Surgical History: (1) Chronic venous stasis dermatitis of both lower extremities (2) Lower extremity ulceration (3) Cellulitis (4) Atrial fibrillation . "Provider Documentation" section prepared by Mohsen Mayorga. .
[2017-12-08 15:03] VITALS: BP 150/76; PULSE 58; TEMP 36.3; O2SAT 96
[2017-12-08] MEDS: WARFARIN SOD 4 MG TAB PO SCH (15:27)
[2017-12-08] MEDS ORDERED: DXY100 PO (16:05)
[2017-12-08 16:25] VITALS: BP 150/76; PULSE 58; TEMP 36.3; O2SAT 96
--- NOTE | 2017-12-08 16:34 | Discharge Summary ---
Discharge Summary Date of Service Dec 08, 2017. Discharge Summary Admission Date: Dec 06, 2017 at 21:12 Discharge Date: Dec 08, 2017 Discharge Disposition: Home Principal Diagnosis: Cellulitis 2/2 venous stasis ulceration Procedures: Echocardiogram: Normal LV Ejection Fraction, valvular function intact Consultations: Wound Care: Debrided and dressed wounds Medication Reconciliation New Medications: Doxycycline Hyclate (Doxycycline Hyclate) 100 Mg Cap 100 MG PO BID for 10 Days, #20 CAP Warfarin Sod (Coumadin) 3 Mg Tab 3 MG PO MoWeFr@1600 for 30 Days, #12 TAB Continued Medications: Atorvastatin (Lipitor) 10 Mg Tab 10 MG PO DAILY, TAB Carvedilol (Coreg) 3.125 Mg Tab 3.125 MG PO BIDM, TAB Digoxin (Digoxin) 0.125 Mg Tab 0.125 MG PO QPM Docusate Sodium (Colace) 100 Mg Cap 1 CAP PO BID PRN for Constipation, CAP Levothyroxine Sodium (Levothyroxine Sodium) 88 Mcg Tab 88 MCG PO DAILY Potassium Chloride (Klor-Con Ext Rel) 8 Meq Tabcr 8 MEQ PO AMHS Spironolactone (Spironolactone) 25 Mg Tab 25 MG PO AMHS Warfarin Sod (Jantoven) 4 Mg Tab 4 MG PO 4XWK, TAB SATURDAY, SATURDAY, SATURDAY, SATURDAY Discontinued Medications: Warfarin Sod (Jantoven) 4 Mg Tab 2 MG PO 3XWK, TAB SATURDAY, SATURDAY, SATURDAY Discharge Exam Constitutional: + fever, + chills, No sweats, No weight loss, No weakness, No fatigue ENT: No hearing loss, No sore throat, No dental problems, No trouble swallowing Respiratory: + cough, No sputum, No wheezing, No dyspnea on exertion, No dyspnea at rest Cardiovascular: + edema, No chest pain, No orthopnea Abdomen: No pain, No nausea, No vomiting, No diarrhea, No constipation General Appearance: WD/WN, + moderate distress Eyes: normal inspection, EOMI, sclerae normal ENT: normal ENT inspection, hearing grossly normal, pharynx normal Neck: supple, no carotid bruits, + JVD Respiratory/Chest: chest non-tender, lungs clear, normal breath sounds, no respiratory distress, no accessory muscle use Cardiovascular: regular rate, rhythm, + irregularly irregular, + pertinent finding (Pedal edema, peripheral pulses intact) Abdomen: normal bowel sounds, non tender, soft, no organomegaly, no pulsatile mass Extremities: normal range of motion, no calf tenderness, + pedal edema 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 He was treated as follows Cellulitis - On doxycycline 100 mg PO BID - Symptoms markedly improved - Cultures showed no growth. - D/C with wound car when appropriate Worsening lower extremity edema -Likely 2/2 fluid overload - BNP elevated - Ordered echo for heart function testing. - Swelling greatly improved after administration of20 mg Furosemide CAD -Continued home atorvastatin and carvedilol AF -Continued home warfarin and carvedilol Total Time Spent: Greater than 30 minutes This includes examination of the patient, discharge planning, medication reconciliation, and communication with other providers. Discharge Instructions Please refer to the electronic Patient Visit Report (Discharge Instructions) for additional information. Additional Copies To Evans Magaña D.O.; Chip Hart MD Resident Tracking Resident Involvement: Resident Care Provided Care Provided: Adult [facility] Medicine Assessment/Plan Resident Physician Supervision Note: I was present with Dr. Mayorga during the history and exam. I discussed the case with the resident and agree with the findings and plan as documented in the note. Any exceptions or clarifications are listed here: Pt seen and examined at bedside. Reports minimal discomfort in the lower extremities with improving rash and swelling. Denies fever, chills, nausea. Reviewed results of echocardiogram with EF 65% On examination, S1/S2 nl RRR, CTAB. B/L LE both wrapped w/ wet to dry and C/D/ I. Erythema overall improved from previous and less TTP Atrial fibrillation on coumadin - on carvedilol, digoxin - INR 1.4 - would recommend bridging with lovenox and increasing coumadin to 4/3 alternating and recheck in 2-3 days. Cellulitis of the LE - continue doxycycline to complete course, follow up with PCP and wound care HTN - continue present medication regimen
[2017-12-09] MEDS ORDERED: WARFARIN SOD 3 MG TAB PO SCH (16:00)
[2017-12-09] MEDS ORDERED: WARFARIN SOD 2 MG TAB PO SCH (16:00)
== END 2017-12-08 18:10 | disposition home or self-care (01) ==
LOC: C.EDB 16:21 → C.MED 21:12 → ENRESERV 21:23
PROVIDERS: ADMIT Internal Medicine; ATTEND Family Medicine
DX: L03.115 Cellulitis of right lower limb (principal); L03.116 Cellulitis of left lower limb; L97.919 Non-pressure chronic ulcer of unspecified part of right lower leg with unspecified severity; L97.929 Non-pressure chronic ulcer of unspecified part of left lower leg with unspecified severity; I87.8 Other specified disorders of veins; R60.0 Localized edema; E78.5 Hyperlipidemia, unspecified; I48.91 Unspecified atrial fibrillation; I25.10 Atherosclerotic heart disease of native coronary artery without angina pectoris; I10 Essential (primary) hypertension; E03.9 Hypothyroidism, unspecified; Z90.49 Acquired absence of other specified parts of digestive tract; Z83.3 Family history of diabetes mellitus; Z83.79 Family history of other diseases of the digestive system; Z84.1 Family history of disorders of kidney and ureter; Z83.6 Family history of other diseases of the respiratory system; Z79.899 Other long term (current) drug therapy; Z79.01 Long term (current) use of anticoagulants; Z88.1 Allergy status to other antibiotic agents; Z88.0 Allergy status to penicillin; Z88.8 Allergy status to other drugs, medicaments and biological substances; Z88.5 Allergy status to narcotic agent

== ENCOUNTER 2018-05-29 11:30 | Inpatient (IN) ==
--- NOTE | 2018-05-29 12:36 | XRay Report ---
XR chest 1V portable HISTORY: 77 years-old Male Sepsis acute sepsis COMPARISON: Chest radiograph 12/06/2017 TECHNIQUE: Portable AP view of the chest FINDINGS: Cardiac silhouette is mildly enlarged, unchanged. Calcification of the thoracic aortic arch. No pneum othorax, pleural effusion, focal airspace consolidation or overt pulmonary edema. Calcification the t horacic cortical arch. Degenerative changes are seen about the shoulders and spine. IMPRESSION: Cardiomegaly without acute process. The above report was generated using voice recognition software. It may contain grammatical, syntax o r spelling errors. Electronically signed by: Nolberto Mohan M.D. 05/29/2018 12:34 PM
[2018-05-29 13:18] LABS: Basophils # (auto) 0.08 K/uL (0-0.2); Basophils % (auto) 1.2 %; Eosinophils % (auto) 10.8 %; Hematocrit (blood only) 36.6 % (42-52); Hemoglobin 11.8 g/dL (14.0-18.0); Immature Granulocytes # (auto) 0.01 K/uL (0.00-0.02); Immature Granulocytes % (auto) 0.2 %; Lymphocytes # (auto) 1.29 K/uL (1.2-3.4); Mean Corpuscular Hgb Conc 32.2 g/dL (32-36); Mean Corpuscular Volume 96.8 fL (80-100); Monocytes # (auto) 0.91 K/uL (0.11-0.59); Monocytes % (auto) 14.1 %; Neutrophils # (auto) 3.47 K/uL (1.4-6.5); Neutrophils % (auto) 53.7 %; Platelet Count 124 K/uL (130-400); RDW Coefficient of Variation 15.2 % (11.5-14.5); RDW Standard Deviation 53.9 fL (36.4-46.3); Red Blood Count 3.78 M/uL (4.7-6.1); White Blood Count 6.46 K/uL (4.8-10.8)
[2018-05-29 13:38] LABS: Prothrombin Time 34.2 Seconds (9.0-12.0)
[2018-05-29 13:39] LABS: Albumin Level 3.3 gm/dl (3.4-5.0); BUN Creatinine Ratio 15.1 (10-20); Calcium 8.4 mg/dl (8.5-10.1); Creatinine Clr Calc Pharmacy 64.9 ml/min; Est GFR (Non-African American) 81.1; INR 3.6 (0.9-1.1); Potassium 3.9 mmol/L (3.5-5.1)
[2018-05-29 13:42] LABS: Albumin Globulin Ratio 0.8 (0.9-2); Bilirubin,Total 0.5 mg/dl (0.2-1); Globulin 4.3 gm/dl (2.5-4.0); Total Protein 7.6 gm/dl (6.4-8.2)
[2018-05-29] MEDS ORDERED: DAPTOmycin 275 MG in SYRINGE 0 ML IV STA (14:32)
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
[2018-05-29] MEDS ORDERED: ONDANSETRON INJ 2 MG/ML 2 ML VIAL IV PRN (16:48)
[2018-05-29] MEDS ORDERED: NITROGLYCERIN SL 0.4 MG/TAB TAB SL PRN (16:48)
[2018-05-29] MEDS ORDERED: ACETAMINOPHEN 325 MG TAB PO PRN (16:48)
[2018-05-29] MEDS ORDERED: DOCUSATE SODIUM 100 MG CAP PO PRN (16:48)
[2018-05-29] MEDS ORDERED: MAGNESIUM HYDROXIDE SUSP 30 ML UDC PO PRN (16:48)
[2018-05-29] MEDS: SODIUM CHLORIDE 0.45 % 1,000 ML IV SCH (17:33)
[2018-05-29] MEDS: DIGOXIN 0.125 MG TAB PO SCH (18:41)
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
[2018-05-29 19:14] LABS: Appearance Urine Clear (Clear); Bilirubin Urine Negative (Negative); Blood Urine Negative (Negative); Color Urine Yellow; Glucose Urine UA Negative (Negative); Ketones Urine Negative (Negative); Leukocyte Esterase Urine Negative (Negative); Nitrite Urine Negative (Negative); Protein Urine Negative (Negative); Specific Gravity Urine 1.015 (1.000-1.030); Urobilinogen Urine Negative (Negative); pH Urine 6.5 (4.5-7.5)
[2018-05-29] MEDS: POTASSIUM CHLORIDE 10 MEQ TABCR PO SCH (20:59)
[2018-05-29] MEDS: SPIRONOLACTONE 25 MG TAB PO SCH (21:00)
[2018-05-29] MEDS: ACETAMINOPHEN 500 MG TAB PO SCH (21:00)
[2018-05-29] MEDS: CARVEDILOL 3.125 MG TAB PO SCH (21:00)
[2018-05-30 05:49] LABS: Basophils # (auto) 0.04 K/uL (0-0.2); Basophils % (auto) 0.8 %; Eosinophils # (auto) 0.67 K/uL (0-0.5); Eosinophils % (auto) 13.2 %; Hematocrit (blood only) 36.2 % (42-52); Hemoglobin 11.6 g/dL (14.0-18.0); Immature Granulocytes # (auto) 0.01 K/uL (0.00-0.02); Immature Granulocytes % (auto) 0.2 %; Lymphocytes # (auto) 1.18 K/uL (1.2-3.4); Lymphocytes % (auto) 23.3 %; Mean Corpuscular Volume 95.8 fL (80-100); Mean Platelet Volume 9.4 fL (7.4-10.4); Monocytes # (auto) 0.82 K/uL (0.11-0.59); Monocytes % (auto) 16.2 %; Neutrophils # (auto) 2.34 K/uL (1.4-6.5); Neutrophils % (auto) 46.3 %; Platelet Count 106 K/uL (130-400); RDW Coefficient of Variation 14.9 % (11.5-14.5); RDW Standard Deviation 52.5 fL (36.4-46.3); Red Blood Count 3.78 M/uL (4.7-6.1); White Blood Count 5.06 K/uL (4.8-10.8)
[2018-05-30 05:57] LABS: INR 2.5 (0.9-1.1); Prothrombin Time 23.7 Seconds (9.0-12.0)
[2018-05-30] MEDS: LEVOTHYROXINE SODIUM 88 MCG TABLET PO SCH (06:06)
[2018-05-30 06:22] LABS: BUN Creatinine Ratio 16.7 (10-20); Calcium 8.5 mg/dl (8.5-10.1); Creatinine Clr Calc Pharmacy 66.3 ml/min; Est GFR (African American) 96.5; Est GFR (Non-African American) 83.3; Magnesium 1.9 mg/dl (1.8-2.4); Phosphorus 3.9 mg/dl (2.5-4.9); Potassium 4.1 mmol/L (3.5-5.1)
[2018-05-30] MEDS: PANTOprazole 40 MG TAB PO SCH (08:41)
[2018-05-30] MEDS: ATORVASTATIN 10 MG TAB PO SCH (08:41)
[2018-05-30] MEDS: SPIRONOLACTONE 25 MG TAB PO SCH ×2 (08:41→20:19)
[2018-05-30] MEDS: CARVEDILOL 3.125 MG TAB PO SCH ×2 (08:41→20:19)
[2018-05-30] MEDS: ACETAMINOPHEN 500 MG TAB PO SCH ×2 (08:42→20:19)
[2018-05-30] MEDS: POTASSIUM CHLORIDE 10 MEQ TABCR PO SCH ×2 (08:42→20:19)
[2018-05-30] MEDS ORDERED: DAPTOmycin 500 MG VIAL IV SCH (09:00)
[2018-05-30] MEDS: SODIUM CHLORIDE 0.45 % 1,000 ML IV SCH (11:06)
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
[2018-05-30] MEDS: DAPTOmycin 275 MG in SYRINGE 0 ML IV SCH (15:41)
[2018-05-30] MEDS: WARFARIN SOD 2 MG TAB PO SCH (15:41)
[2018-05-30] MEDS: DIGOXIN 0.125 MG TAB PO SCH (18:13)
--- NOTE | 2018-05-30 21:26 | Hospitalist Progress Note ---
Date of Service May 30, 2018 Assessment & Plan (1) Cellulitis: RLE. In the setting of chronic ulcerations, PAD, and venous insufficiency. by the pt's report the leg is better today. Review of cultures from the RLE over the last 3-4 weeks reveals - MSSA, coag neg staph, and acinetobacter. Doxycycline will cover the coag neg staph and acinetobacter and thus will add such. For MSSA - unfortunately the patient is allergic to PCN and cephalosporins. And , his MSSA is resistant to tetracyclines. Therefore will continue the IV daptomycin for now for the MSSA. Consider ID consultation in light of numerous abx allergies and to obtain additional guidance. (2) Venous insufficiency: continue gentle compression with tubigrip dressings. I am surprised he is not on a low-dose diuretic other than aldactone. continue the aldactone for now. Dr. Larsen' consult appreciated. Needs vein study after d/c. (3) Venous stasis ulcers of both lower extremities: mainly RLE at this time. appreciate wound care team consultation. continue aquacel ag and other dressings. gentle compression. abx as noted above in "cellulitis". continue wound care center follow-up after discharge. (4) Atrial fibrillation: PAF. INR today is 2.5 - resume coumadin. INR was likely high yesterday due to recent bactrim use. cont BB, dig. dig level acceptable. (5) Hypothyroidism: TSH 11/2017 was normal. Cont current dose of thyroid med. (6) CAD (coronary artery disease): see Dr. Larsen' consultation note. although he presented with chest pain serial troponins are negative. Dr. Larsen to perform outpatient w/u. (7) HTN (hypertension): acceptable control at this time. (8) Chest pain: see discussion above. tele stable, trops neg, no further symptoms. (9) PAD (peripheral artery disease): cont statin agent. recently underwent LE arteriogram showing distal vessel disease of the legs. arteriogram was aborted and no interventions were taken. (10) Thrombocytopenia: new onset. due to infection? simply repeat CBC in am for stability. (11) DVT prophylaxis: coumadin daily INR PT, OT evals completed; cleared for home possibly home this weekend Subjective Upon entering the room the pt's phone rang. He picked it up and started talking to a family member. He stated "I'm going home!" After he got off the phone he stated that someone told him he could leave but he couldn't remember who. He then stated that the leg "looked a lot better" today (with respect to redness , etc). He denied any specific complaints. Constitutional: no fever and no chills Respiratory: no cough and no dyspnea Cardiovascular: no chest pain Gastrointestinal: no abdominal pain Physical Exam 2 Vital Signs (Past 24 Hours): Last Vital Signs Temp 36.3 C L 05/30/18 19:34 Pulse 64 05/30/18 19:34 Resp 18 05/30/18 19:34 BP 147/87 H 05/30/18 19:34 Pulse Ox 96 05/30/18 19:34 Constitutional: no acute distress and not ill appearing ENMT: external ear and nose normal, oropharynx normal Respiratory: normal respiratory effort, lungs clear to auscultation Cardiovascular: Rate/Rhythm: regular rate and regular rhythm Heart Sounds: normal S1 and normal S2 Vessels: posterior tibial pulses present and dorsalis pedis pulses present Extremities: + edema (2-3+ b/l to the knees); + abnormal capillary refill (2 seconds or slightly longer both feet) Gastrointestinal (Abdomen): normal bowel sounds, soft, nontender, no hepatosplenomegaly Skin: extensive venous stasis changes with hyperpigmentation b/l extending to just below the knees; there is extensive dry skin and sloughing of such on both legs; right leg -- large ulceration medial aspect of distal leg with mild discharge; there are 3-4 smaller ulcerations over the anterior simmons and lateral aspect of the right leg as well; neither of these latter ulcers have drainage; mild erythema of distal right simmons only. dry skin over torso, arms. Psychiatric: Orientation: alert Results & Data Laboratory Results Laboratory Results - last 24 hr 05/29/18 05/30/18 05/30/18 22:23 05:37 05:37 WBC 5.06 RBC 3.78 L Hgb 11.6 L Hct 36.2 L MCV 95.8 MCH 30.7 MCHC 32.0 RDW Std Deviation 52.5 H RDW Coeff of Luci 14.9 H Plt Count 106 L MPV 9.4 Immature Gran % (Auto) 0.2 Neut % (Auto) 46.3 Lymph % (Auto) 23.3 [place] % (Auto) 16.2 Eos % (Auto) 13.2 Baso % (Auto) 0.8 Immature Gran # (Auto) 0.01 Neut # (Auto) 2.34 Lymph # (Auto) 1.18 L [place] # (Auto) 0.82 H Eos # (Auto) 0.67 H Baso # (Auto) 0.04 PT 23.7 H INR 2.5 H Sodium Potassium Chloride Carbon Dioxide Anion Gap BUN Creatinine Est Cr Clr Drug Dosing Est GFR ( Amer) Est GFR (Non-Af Amer) BUN/Creatinine Ratio Glucose Calcium Phosphorus Magnesium Troponin I < 0.015 05/30/18 05:37 WBC RBC Hgb Hct MCV MCH MCHC RDW Std Deviation RDW Coeff of Luci Plt Count MPV Immature Gran % (Auto) Neut % (Auto) Lymph % (Auto) [place] % (Auto) Eos % (Auto) Baso % (Auto) Immature Gran # (Auto) Neut # (Auto) Lymph # (Auto) [place] # (Auto) Eos # (Auto) Baso # (Auto) PT INR Sodium 135 L Potassium 4.1 Chloride 103 Carbon Dioxide 26 Anion Gap 6.0 BUN 15 Creatinine 0.90 Est Cr Clr Drug Dosing 66.3 Est GFR ( Amer) 96.5 Est GFR (Non-Af Amer) 83.3 BUN/Creatinine Ratio 16.7 Glucose 83 Calcium 8.5 Phosphorus 3.9 Magnesium 1.9 Troponin I _ (1) Cellulitis Site of cellulitis: extremity Site of cellulitis of extremity: lower extremity Laterality: right Site of cellulitis of trunk: Qualified Code(s): L03.115 - Cellulitis of right lower limb (2) Atrial fibrillation Atrial fibrillation type: paroxysmal Qualified Code(s): I48.0 - Paroxysmal atrial fibrillation (3) Hypothyroidism Hypothyroidism type: acquired Qualified Code(s): E03.9 - Hypothyroidism, unspecified (4) CAD (coronary artery disease) Associated angina: with stable angina Coronary Disease-Associated Artery/ Lesion type: [place] artery [place] vs. transplanted heart: [place] heart Qualified Code(s): I25.118 - Atherosclerotic heart disease of [place] coronary artery with other forms of angina pectoris (5) HTN (hypertension) Hypertension type: unspecified Qualified Code(s): I10 - Essential (primary) hypertension (6) Chest pain Chest pain type: unspecified Ischemic chest pain type: Qualified Code(s): R07.9 - Chest pain, unspecified
[2018-05-30] MEDS: DOXYCYCLINE HYCLATE 100 MG CAP PO SCH (22:23)
[2018-05-31] MEDS: LEVOTHYROXINE SODIUM 88 MCG TABLET PO SCH (06:05)
[2018-05-31 06:09] LABS: Hematocrit (blood only) 37.6 % (42-52); Mean Corpuscular Hgb Conc 31.9 g/dL (32-36); Mean Corpuscular Volume 96.2 fL (80-100); Mean Platelet Volume 10.1 fL (7.4-10.4); Platelet Count 113 K/uL (130-400); RDW Coefficient of Variation 14.9 % (11.5-14.5); RDW Standard Deviation 52.3 fL (36.4-46.3); Red Blood Count 3.91 M/uL (4.7-6.1); White Blood Count 4.92 K/uL (4.8-10.8)
[2018-05-31 06:18] LABS: Prothrombin Time 19.4 Seconds (9.0-12.0)
[2018-05-31 06:45] LABS: BUN Creatinine Ratio 18.6 (10-20); Calcium 8.6 mg/dl (8.5-10.1); Creatinine Clr Calc Pharmacy 66.3 ml/min; Est GFR (African American) 96.5; Est GFR (Non-African American) 83.3; Potassium 3.9 mmol/L (3.5-5.1)
[2018-05-31] MEDS: PANTOprazole 40 MG TAB PO SCH (08:16)
[2018-05-31] MEDS: DOXYCYCLINE HYCLATE 100 MG CAP PO SCH (08:17)
[2018-05-31] MEDS: CARVEDILOL 3.125 MG TAB PO SCH ×2 (08:17→20:38)
[2018-05-31] MEDS: POTASSIUM CHLORIDE 10 MEQ TABCR PO SCH ×2 (08:17→20:37)
[2018-05-31] MEDS: ATORVASTATIN 10 MG TAB PO SCH (08:17)
[2018-05-31] MEDS: SPIRONOLACTONE 25 MG TAB PO SCH ×2 (08:17→20:36)
[2018-05-31] MEDS: LACTOBACILLUS ACIDOPHILUS (FLORANEX) TAB PO SCH ×3 (08:18→17:12)
[2018-05-31] MEDS: ACETAMINOPHEN 500 MG TAB PO SCH ×2 (08:18→20:36)
[2018-05-31] MEDS: DAPTOmycin 275 MG in SYRINGE 0 ML IV SCH (14:37)
--- NOTE | 2018-05-31 15:00 | Hospitalist Progress Note ---
Date of Service May 31, 2018 Assessment & Plan (1) Cellulitis: RLE. In the setting of chronic venous ulcerations, PAD, and venous insufficiency. Had angiogram of the BLEs on 04/30/18 which showed: 1. Left lower extremity-widely patent inflow and SFA/popliteal vessels with three-vessel distal runoff to the foot. Severe occlusive pedal vessel disease. 2. Right lower extremity-widely patent inflow, SFA/popliteal vessels with 2 vessel distal runoff to the ankle (COIL ASSEMBLER, ARA). Occluded distal ARA. Severe occlusive pedal vessel disease. Cardiology thought there was sufficient blood flow to the right simmons to supply the current large wound for healing. Review of cultures from the RLE over the last 3-4 weeks reveals - MSSA, coag neg staph, and acinetobacter, as well as Pseudomonas. Previously treated with Cipro and Bactrim Here was placed on Daptomycin and Doxycycline to cover the coag neg staph and MSSA, and acinetobacter, respectively Discussed with ID today--> change to ertapenem alone which covers for all organisms present Wound culture from 05/29 with Coag neg Staph alone -await recommendation for length of course from ID -will need to see if needs a PICC line -Cardiology saw this admission as well and recommended outpatient venous reflux US (2) Venous insufficiency: Long standing for many years, R>L. Patient reports started after a crush injury to the right leg decades ago, but much worse in the last 8 years or so -continue gentle compression with tubigrip dressings. Dr. Larsen' consult appreciated. -Needs venous reflux US study as an outpatient (3) Venous stasis ulcers of both lower extremities: mainly RLE at this time. appreciate wound care team consultation. continue aquacel ag and other dressings. gentle compression. abx as noted above in "cellulitis". continue wound care center follow-up after discharge. -consult cold type artist while here (4) Atrial fibrillation: PAF. In Afib here and rates are bradycardic to the 30s at times, mostly at nighttime, is in 50s-70s during the day INR today is 2.0 -continue coumadin. -continue Coreg 3.125mg po bid -dig level acceptable, however will hold digoxin starting tomorrow as rates too low (5) Hypothyroidism: TSH 11/2017 was normal. Cont current dose of thyroid med. (6) CAD (coronary artery disease): see Dr. Larsen' consultation note. With h/o stent in 2006 placed at [place], no further details known -although he presented with chest pain, serial troponins are negative. With some anterior TW abnormalities more prominent than previous Dr. Larsen recommends outpatient stress test -continue Coreg, statin (although consider increasing dose to high intensity- unclear why on low dose) -not on ASA but is on Coumadin (7) HTN (hypertension): acceptable control at this time. -continue Coreg, aldactone (8) Chest pain: see discussion above. tele stable, trops neg, no further symptoms. (9) PAD (peripheral artery disease): cont statin agent. recently underwent LE arteriogram showing distal vessel disease of the legs. arteriogram was aborted and no interventions were taken as non-healing ulcer thought to be from venous disease (10) Thrombocytopenia: new onset. could be due to infection, improved today (11) 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: on ertapenem now as above-growing from wound on RLE (12) MSSA (methicillin susceptible Staphylococcus aureus) infection: -from wound on RLE -continue ertapenem now (13) Rash: started he thinks about 2 weeks ago and was very itchy, could be allergy to Bactrim? 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 He denies pain in the leg. Denies chest pain or shortness of breath, denies headache or lightheadedness, denies nausea, no abdominal pain or diarrhea. He is making urine and able to get it out. I discussed the case with infectious disease today. Telemetry with rates as low as the low 30s overnight, with rates in the 50s-70s all in atrial fibrillation today. Review of Systems All systems reviewed & are unremarkable except as noted in HPI & below Physical Exam 2 Vital Signs (Past 24 Hours): Last Vital Signs Temp 36.6 C 05/31/18 04:19 Pulse 52 L 05/31/18 07:25 Resp 20 05/31/18 04:19 BP 105/67 05/31/18 04:19 Pulse Ox 96 05/31/18 04:19 Constitutional: WD/WN, vitals as above Eyes: PERRL, conjunctivae normal, anicteric sclerae Neck: trachea midline, no thyromegaly Respiratory: normal respiratory effort, lungs clear to auscultation Cardiovascular: Rate/Rhythm: regular rate; + abnormal rhythm (Irregularly irregular) Heart Sounds: no murmur Vessels: + abnormal peripheral pulses ( cannot palpate pedal pulses bilat) Extremities: + edema (Right lower extremity 3+ pitting edema, left lower extremity 1+ pitting edema, bilateral chronic venous stasis changes with multiple areas of cracked and peeling dry skin and some oozing of blood from the cracks) Gastrointestinal (Abdomen): normal bowel sounds, soft, nontender, no hepatosplenomegaly Musculoskeletal: Extremities: no cyanosis Skin: + rash (rash on forearms and thighs with [place] erythematous macular rash with areas of excoriation) and + ulcer (Right medial ankle with large open wound approximately 4 x 3 cm with mild surrounding erythema, positive purulent drainage on dressing; smaller open wound medial calf and lateral calf) Neurologic: moves all extremities and awake; no focal motor deficits Psychiatric: A+Ox3, euthymic affect Results & Data Laboratory Results 05/31/18 05/31/18 05/31/18 Range/Units 05:44 05:37 05:37 WBC 4.92 (4.8-10.8) K/uL RBC 3.91 L (4.7-6.1) M/uL Hgb 12.0 L (14.0-18.0) g/dL Hct 37.6 L (42-52) % MCV 96.2 (80-100) fL MCH 30.7 (25-34) pg MCHC 31.9 L (32-36) g/dL RDW Std Deviation 52.3 H (36.4-46.3) fL RDW Coeff of Luci 14.9 H (11.5-14.5) % Plt Count 113 L (130-400) K/uL MPV 10.1 (7.4-10.4) fL PT 19.4 H (9.0-12.0) Seconds INR 2.0 H (0.9-1.1) Sodium 137 (136-145) mmol/L Potassium 3.9 (3.5-5.1) mmol/L Chloride 105 (98-107) mmol/L Carbon Dioxide 27 (21-32) mmol/L Anion Gap 5.0 (3-11) BUN 17 (7-18) mg/dl Creatinine 0.90 (0.6-1.4) mg/dl Est Cr Clr Drug Dosing 66.3 ml/min Est GFR ( Amer) 96.5 Est GFR (Non-Af Amer) 83.3 BUN/Creatinine Ratio 18.6 (10-20) Glucose 83 (70-99) mg/dl Calcium 8.6 (8.5-10.1) mg/dl _ (1) CAD (coronary artery disease) Associated angina: with stable angina Coronary Disease-Associated Artery/ Lesion type: [place] artery [place] vs. transplanted heart: [place] heart Qualified Code(s): I25.118 - Atherosclerotic heart disease of [place] coronary artery with other forms of angina pectoris (2) Atrial fibrillation Atrial fibrillation type: paroxysmal Qualified Code(s): I48.0 - Paroxysmal atrial fibrillation (3) Cellulitis Laterality: right Site of cellulitis: extremity Site of cellulitis of extremity: lower extremity Site of cellulitis of trunk: Qualified Code(s): L03.115 - Cellulitis of right lower limb (4) Hypothyroidism Hypothyroidism type: acquired Qualified Code(s): E03.9 - Hypothyroidism, unspecified (5) Chest pain Chest pain type: unspecified Ischemic chest pain type: Qualified Code(s): R07.9 - Chest pain, unspecified (6) HTN (hypertension) Hypertension type: unspecified Qualified Code(s): I10 - Essential (primary) hypertension
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
[2018-05-31] MEDS: ERTAPENEM SODIUM 1,000 MG in SODIUM CHLORIDE 0.9% 50 ML IV SCH (17:11)
[2018-05-31] MEDS: WARFARIN SOD 2 MG TAB PO SCH (17:13)
[2018-06-01] MEDS: LEVOTHYROXINE SODIUM 88 MCG TABLET PO SCH (06:05)
[2018-06-01 07:41] LABS: Basophils # (auto) 0.05 K/uL (0-0.2); Basophils % (auto) 0.9 %; Eosinophils # (auto) 0.75 K/uL (0-0.5); Eosinophils % (auto) 12.8 %; Hematocrit (blood only) 38.4 % (42-52); Hemoglobin 12.4 g/dL (14.0-18.0); Immature Granulocytes # (auto) 0.01 K/uL (0.00-0.02); Immature Granulocytes % (auto) 0.2 %; Lymphocytes # (auto) 1.48 K/uL (1.2-3.4); Lymphocytes % (auto) 25.3 %; Mean Corpuscular Hgb Conc 32.3 g/dL (32-36); Mean Corpuscular Volume 96.5 fL (80-100); Mean Platelet Volume 10.1 fL (7.4-10.4); Monocytes # (auto) 0.63 K/uL (0.11-0.59); Monocytes % (auto) 10.8 %; Neutrophils # (auto) 2.93 K/uL (1.4-6.5); Platelet Count 115 K/uL (130-400); RDW Coefficient of Variation 14.8 % (11.5-14.5); RDW Standard Deviation 52.1 fL (36.4-46.3); Red Blood Count 3.98 M/uL (4.7-6.1); White Blood Count 5.85 K/uL (4.8-10.8)
[2018-06-01 07:51] LABS: INR 1.8 (0.9-1.1); Prothrombin Time 17.3 Seconds (9.0-12.0)
[2018-06-01] MEDS: PANTOprazole 40 MG TAB PO SCH (07:58)
[2018-06-01] MEDS: SPIRONOLACTONE 25 MG TAB PO SCH ×2 (07:58→20:46)
[2018-06-01] MEDS: CARVEDILOL 3.125 MG TAB PO SCH ×2 (07:59→22:13)
[2018-06-01] MEDS: ATORVASTATIN 10 MG TAB PO SCH (07:59)
[2018-06-01] MEDS: LACTOBACILLUS ACIDOPHILUS (FLORANEX) TAB PO SCH ×3 (07:59→15:54)
[2018-06-01] MEDS: POTASSIUM CHLORIDE 10 MEQ TABCR PO SCH ×2 (08:00→20:44)
[2018-06-01] MEDS: ACETAMINOPHEN 500 MG TAB PO SCH ×2 (08:00→20:43)
[2018-06-01 08:22] LABS: BUN Creatinine Ratio 19.7 (10-20); Calcium 8.6 mg/dl (8.5-10.1); Creatinine Clr Calc Pharmacy 62.8 ml/min; Est GFR (African American) 90.4; Potassium 3.8 mmol/L (3.5-5.1)
[2018-06-01] MEDS: ENOXAPARIN 80 MG/0.8 ML SYR SQ SCH ×2 (11:12→20:48)
[2018-06-01] MEDS: ERTAPENEM SODIUM 1,000 MG in SODIUM CHLORIDE 0.9% 50 ML IV SCH (15:53)
[2018-06-01] MEDS: WARFARIN SOD 3 MG TAB PO SCH (15:54)
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
[2018-06-02 05:56] LABS: Basophils # (auto) 0.03 K/uL (0-0.2); Basophils % (auto) 0.5 %; Eosinophils # (auto) 0.73 K/uL (0-0.5); Eosinophils % (auto) 12.3 %; Hematocrit (blood only) 36.5 % (42-52); Hemoglobin 11.7 g/dL (14.0-18.0); Immature Granulocytes # (auto) 0.01 K/uL (0.00-0.02); Immature Granulocytes % (auto) 0.2 %; Lymphocytes # (auto) 1.82 K/uL (1.2-3.4); Lymphocytes % (auto) 30.7 %; Mean Corpuscular Hgb Conc 32.1 g/dL (32-36); Mean Corpuscular Volume 96.6 fL (80-100); Mean Platelet Volume 10.1 fL (7.4-10.4); Monocytes # (auto) 0.62 K/uL (0.11-0.59); Monocytes % (auto) 10.5 %; Neutrophils # (auto) 2.72 K/uL (1.4-6.5); Neutrophils % (auto) 45.8 %; Platelet Count 123 K/uL (130-400); RDW Coefficient of Variation 14.9 % (11.5-14.5); RDW Standard Deviation 52.2 fL (36.4-46.3); Red Blood Count 3.78 M/uL (4.7-6.1); White Blood Count 5.93 K/uL (4.8-10.8)
[2018-06-02] MEDS: LEVOTHYROXINE SODIUM 88 MCG TABLET PO SCH (06:07)
[2018-06-02 06:10] LABS: INR 1.6 (0.9-1.1); Prothrombin Time 16.1 Seconds (9.0-12.0)
[2018-06-02 06:30] LABS: BUN Creatinine Ratio 16.7 (10-20); Calcium 8.3 mg/dl (8.5-10.1); Creatinine Clr Calc Pharmacy 57.4 ml/min; Est GFR (Non-African American) 69.9; Potassium 4.1 mmol/L (3.5-5.1)
[2018-06-02] MEDS: CARVEDILOL 3.125 MG TAB PO SCH (08:17)
[2018-06-02] MEDS: SPIRONOLACTONE 25 MG TAB PO SCH ×2 (08:18→20:03)
[2018-06-02] MEDS: PANTOprazole 40 MG TAB PO SCH (08:18)
[2018-06-02] MEDS: LACTOBACILLUS ACIDOPHILUS (FLORANEX) TAB PO SCH ×3 (08:18→16:20)
[2018-06-02] MEDS: ATORVASTATIN 10 MG TAB PO SCH (08:19)
[2018-06-02] MEDS: POTASSIUM CHLORIDE 10 MEQ TABCR PO SCH ×2 (08:20→20:04)
[2018-06-02] MEDS: ACETAMINOPHEN 500 MG TAB PO SCH ×2 (08:21→20:03)
[2018-06-02] MEDS: ENOXAPARIN 80 MG/0.8 ML SYR SQ SCH ×2 (11:17→20:04)
[2018-06-02] MEDS ORDERED: EUCERIN CR 120 GM JAR EXT STA (14:23)
[2018-06-02] MEDS: ERTAPENEM SODIUM 1,000 MG in SODIUM CHLORIDE 0.9% 50 ML IV SCH (17:16)
[2018-06-02] MEDS: WARFARIN SOD 3 MG TAB PO SCH (17:16)
--- NOTE | 2018-06-02 21:01 | Hospitalist Progress Note ---
Date of Service June 02, 2018 Assessment & Plan (1) Cellulitis: RLE appears resolved now on daily ertapenem ID recommending at least another week of Rx social work trying to determine if patient can have this at home or if he will need MTU (2) Ulcer: right leg continue optifoams and local wound care recent cultures with coag neg staph, MSSA, and acinetobacter now on ertapenem once daily plan for at least 1 more week of Rx, possibly longer but overall doing ok (3) Afib: cont coumadin for anticoagulation daily INR control has been complicated by significant bradycardia dig was first held, and now holding his coreg follow HRs on tele another 24 hours and go from there check TSH in am (4) Venous insufficiency: chronic, severe cont gentle compression (5) Rash: associated with eosinophllia - thus, this may have been drug reaction to bactrim consider low-dose steroids to help hasten resolution although patient does not seem bothered by rash today (6) PAD (peripheral artery disease): Dr. Larsen performed arteriogram recently of RLE thought to initially have poor flow to the foot in the end no intervention was completed as he thought there was enough intact circulation to not warrant Rx (7) Hypothyroidism: check TSH in am synthroid in meantime (8) CAD (coronary artery disease): no ischemic symptoms cont statin resume BB if HRs will allow (9) HTN (hypertension): controlled (10) DVT prophylaxis: coumadin spoke with social work - trying to determine where ertapenem will be given post- d/c we have been having issues placing IVs for this cleared by PT, OT for home watch a fib rates on monitor Subjective tele with a. fib, rates sometimes hitting low 30s, and mild pauses about 2.5sec in duration (happened twice overnight) patient w/o complaints sitting in chair wearing regular clothes and a hat -- very hopeful "he can leave soon" denied any complaints stating "I feel good" eating well Constitutional: no fever and no weakness Respiratory: no cough and no dyspnea Cardiovascular: + edema; no chest pain Gastrointestinal: no abdominal pain and no diarrhea/loose stools Physical Exam 2 Vital Signs (Past 24 Hours): Last Vital Signs Temp 36.2 C L 06/02/18 20:16 Pulse 72 06/02/18 20:16 Resp 20 06/02/18 20:16 BP 155/85 H 06/02/18 20:16 Pulse Ox 97 06/02/18 20:16 Constitutional: well developed and well nourished; no acute distress ENMT: external ear and nose normal, oropharynx normal Respiratory: normal respiratory effort, lungs clear to auscultation Cardiovascular: Rate/Rhythm: regular rate; + abnormal rhythm (irregular) Heart Sounds: normal S1 and normal S2 Vessels: posterior tibial pulses present and dorsalis pedis pulses present Extremities: + edema (2-3+ b/l ) Gastrointestinal (Abdomen): normal bowel sounds, soft, nontender, no hepatosplenomegaly Skin: generalized erythematous rash on back, arms, chest; severe stasis dermatitis on legs; ulceration right medial ankle region with yellow exudate Results & Data Laboratory Results Laboratory Results - last 24 hr 06/02/18 06/02/18 06/02/18 05:36 05:36 05:36 WBC 5.93 RBC 3.78 L Hgb 11.7 L Hct 36.5 L MCV 96.6 MCH 31.0 MCHC 32.1 RDW Std Deviation 52.2 H RDW Coeff of Luci 14.9 H Plt Count 123 L MPV 10.1 Immature Gran % (Auto) 0.2 Neut % (Auto) 45.8 Lymph % (Auto) 30.7 Phillips % (Auto) 10.5 Eos % (Auto) 12.3 Baso % (Auto) 0.5 Immature Gran # (Auto) 0.01 Neut # (Auto) 2.72 Lymph # (Auto) 1.82 Phillips # (Auto) 0.62 H Eos # (Auto) 0.73 H Baso # (Auto) 0.03 PT 16.1 H INR 1.6 H Sodium 139 Potassium 4.1 Chloride 105 Carbon Dioxide 27 Anion Gap 7.0 BUN 17 Creatinine 1.04 Est Cr Clr Drug Dosing 57.4 Est GFR ( Amer) 81.0 Est GFR (Non-Af Amer) 69.9 BUN/Creatinine Ratio 16.7 Glucose 90 Calcium 8.3 L _ (1) Cellulitis Site of cellulitis: extremity Site of cellulitis of extremity: lower extremity Laterality: right Site of cellulitis of trunk: Qualified Code(s): L03.115 - Cellulitis of right lower limb (2) Afib Atrial fibrillation type: chronic Qualified Code(s): I48.2 - Chronic atrial fibrillation (3) Hypothyroidism Hypothyroidism type: acquired Qualified Code(s): E03.9 - Hypothyroidism, unspecified (4) CAD (coronary artery disease) Associated angina: with stable angina Coronary Disease-Associated Artery/ Lesion type: [place] artery [place] vs. transplanted heart: [place] heart Qualified Code(s): I25.118 - Atherosclerotic heart disease of [place] coronary artery with other forms of angina pectoris (5) HTN (hypertension) Hypertension type: unspecified Qualified Code(s): I10 - Essential (primary) hypertension
[2018-06-03] MEDS: LEVOTHYROXINE SODIUM 88 MCG TABLET PO SCH (05:46)
[2018-06-03 06:05] LABS: INR 1.6 (0.9-1.1); Prothrombin Time 15.8 Seconds (9.0-12.0)
[2018-06-03 06:31] LABS: BUN Creatinine Ratio 17.3 (10-20); Calcium 8.5 mg/dl (8.5-10.1); Creatinine Clr Calc Pharmacy 64.9 ml/min; Est GFR (Non-African American) 81.1; Potassium 3.9 mmol/L (3.5-5.1)
[2018-06-03] MEDS: SPIRONOLACTONE 25 MG TAB PO SCH (08:16)
[2018-06-03] MEDS: POTASSIUM CHLORIDE 10 MEQ TABCR PO SCH (08:16)
[2018-06-03] MEDS: LACTOBACILLUS ACIDOPHILUS (FLORANEX) TAB PO SCH ×3 (08:16→16:32)
[2018-06-03] MEDS: ATORVASTATIN 10 MG TAB PO SCH (08:16)
[2018-06-03] MEDS: PANTOprazole 40 MG TAB PO SCH (08:17)
[2018-06-03] MEDS: ACETAMINOPHEN 500 MG TAB PO SCH (08:17)
[2018-06-03] MEDS: ENOXAPARIN 80 MG/0.8 ML SYR SQ SCH (11:10)
[2018-06-03] MEDS: WARFARIN SOD 3 MG TAB PO SCH (15:59)
[2018-06-03] MEDS ORDERED: WARFARIN SOD 2 MG TAB PO ONE (16:00)
[2018-06-03] MEDS: ERTAPENEM SODIUM 1,000 MG in SODIUM CHLORIDE 0.9% 50 ML IV SCH (16:25)
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
== END 2018-06-03 18:39 | disposition home health service (06) | DRG 603 ==
LOC: ED 11:30 → SUATTDRO 15:29 → 2N 15:29

== ENCOUNTER 2018-07-20 12:27 | Observation (INO) ==
[2018-07-20] MEDS ORDERED: SODIUM CHLORIDE 0.9% 500 ML IV SCH (13:15)
[2018-07-20 13:57] LABS: Basophils # (auto) 0.02 K/uL (0-0.2); Basophils % (auto) 0.2 %; Eosinophils # (auto) 0.08 K/uL (0-0.5); Eosinophils % (auto) 0.6 %; Hematocrit (blood only) 41.4 % (42-52); Immature Granulocytes # (auto) 0.08 K/uL (0.00-0.02); Immature Granulocytes % (auto) 0.6 %; Lymphocytes # (auto) 1.32 K/uL (1.2-3.4); Lymphocytes % (auto) 10.2 %; Mean Corpuscular Hgb Conc 33.8 g/dL (32-36); Mean Platelet Volume 10.2 fL (7.4-10.4); Monocytes # (auto) 1.42 K/uL (0.11-0.59); Monocytes % (auto) 10.9 %; Neutrophils # (auto) 10.07 K/uL (1.4-6.5); Neutrophils % (auto) 77.5 %; Platelet Count 140 K/uL (130-400); RDW Coefficient of Variation 14.1 % (11.5-14.5); RDW Standard Deviation 49.2 fL (36.4-46.3); Red Blood Count 4.36 M/uL (4.7-6.1); White Blood Count 12.99 K/uL (4.8-10.8)
[2018-07-20 14:16] LABS: Influenza A virus by PCR Neg for Influ A (Neg); Influenza B virus by PCR Neg for Influ B (Neg)
[2018-07-20 14:20] LABS: Alanine Aminotransferase 21 U/L (12-78); Albumin Level 3.7 gm/dl (3.4-5.0); Aspartate Aminotransferase 27 U/L (15-37); BUN Creatinine Ratio 15.5 (10-20); Blood Urea Nitrogen 15 mg/dl (7-18); Calcium 8.9 mg/dl (8.5-10.1); Carbon Dioxide 27 mmol/L (21-32); Chloride 101 mmol/L (98-107); Creatinine Clr Calc Pharmacy 60.3 ml/min; Est GFR (Non-African American) 74.2; Glucose 105 mg/dl (70-99); Potassium 4.2 mmol/L (3.5-5.1); Sodium 136 mmol/L (136-145)
--- NOTE | 2018-07-20 14:22 | XRay Report ---
XR chest 2V routine HISTORY: 77 years-old Male cough, weakness acute cough with weakness COMPARISON: Chest radiograph 05/29/2018 TECHNIQUE: PA and lateral views of the chest FINDINGS: Cardiac silhouette is mildly enlarged, unchanged. Calcification of the thoracic aortic arch. There is no pneumothorax, pleural effusion, focal airspace consolidation or overt pulmonary edema. Degenerati ve changes of the shoulders and spine. Vascular calcifications noted. IMPRESSION: Cardiomegaly without acute process. The above report was generated using voice recognition software. It may contain grammatical, syntax o r spelling errors. Electronically signed by: Nolberto Mohan M.D. 07/20/2018 2:19 PM
[2018-07-20 14:25] LABS: Albumin Globulin Ratio 0.8 (0.9-2); Alkaline Phosphatase 102 U/L (45-117); Globulin 4.9 gm/dl (2.5-4.0); Total Protein 8.6 gm/dl (6.4-8.2); Troponin I < 0.015 ng/ml (0-0.045)
[2018-07-20 14:39] LABS: T4 Free Thyroxine 1.38 ng/dl (0.8-1.6)
[2018-07-20 15:12] LABS: Appearance Urine Slightly Cloudy (Clear); Bilirubin Urine Negative (Negative); Blood Urine 2+ (Negative); Color Urine Yellow; Glucose Urine UA Negative (Negative); Ketones Urine Trace (Negative); Leukocyte Esterase Urine Negative (Negative); Nitrite Urine Negative (Negative); Protein Urine 1+ (Negative); Urobilinogen Urine Negative (Negative); pH Urine 6.5 (4.5-7.5)
[2018-07-20 15:14] LABS: INR 2.7 (0.9-1.1); Partial Thromboplastin Ratio 1.7; Prothrombin Time 25.6 Seconds (9.0-12.0)
[2018-07-20 15:19] LABS: Partial Thromboplastin Time 46.4 Seconds (21.0-31.0)
[2018-07-20 15:22] LABS: Epithelial Cell Urine 20-30 /lpf (0-5)
[2018-07-20 15:23] LABS: Bacteria Urine 1+ (Negative); WBC Urine 0-5 /hpf (0-5)
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
[2018-07-20] MEDS ORDERED: WARFARIN SOD 2 MG TAB PO SCH (18:26)
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
[2018-07-20] MEDS: SODIUM CHLORIDE 0.9% 1000ML 1,000 ML IV SCH (19:34)
[2018-07-20] MEDS: ACETAMINOPHEN 325 MG TAB PO PRN (19:40)
[2018-07-20] MEDS: CARVEDILOL 3.125 MG TAB PO SCH (20:44)
[2018-07-20] MEDS: SPIRONOLACTONE 25 MG TAB PO SCH (20:44)
[2018-07-21 05:46] LABS: Hematocrit (blood only) 37.1 % (42-52); Mean Corpuscular Hgb Conc 32.3 g/dL (32-36); Mean Corpuscular Volume 95.6 fL (80-100); Mean Platelet Volume 9.8 fL (7.4-10.4); Platelet Count 123 K/uL (130-400); RDW Coefficient of Variation 14.2 % (11.5-14.5); RDW Standard Deviation 49.6 fL (36.4-46.3); Red Blood Count 3.88 M/uL (4.7-6.1); White Blood Count 10.92 K/uL (4.8-10.8)
[2018-07-21 06:06] LABS: INR 2.3 (0.9-1.1); Prothrombin Time 22.2 Seconds (9.0-12.0)
[2018-07-21 06:08] LABS: BUN Creatinine Ratio 17.2 (10-20); Calcium 8.4 mg/dl (8.5-10.1); Creatinine Clr Calc Pharmacy 73.7 ml/min; Est GFR (African American) 100.8; Est GFR (Non-African American) 86.9; Magnesium 1.8 mg/dl (1.8-2.4)
[2018-07-21] MEDS: SODIUM CHLORIDE 0.9% 1000ML 1,000 ML IV SCH (06:24)
[2018-07-21] MEDS ORDERED: LEVOTHYROXINE SODIUM 88 MCG TABLET PO SCH (06:30)
[2018-07-21] MEDS: SPIRONOLACTONE 25 MG TAB PO SCH (07:32)
[2018-07-21] MEDS: CARVEDILOL 3.125 MG TAB PO SCH (07:33)
[2018-07-21] MEDS: ACETAMINOPHEN 325 MG TAB PO PRN (07:55)
[2018-07-21] MEDS ORDERED: PANTOprazole 40 MG TAB PO SCH (09:00)
[2018-07-21] MEDS ORDERED: ATORVASTATIN 10 MG TAB PO SCH (09:00)
[2018-07-21] MEDS ORDERED: WARFARIN SOD 4 MG TAB PO SCH (16:00)
--- NOTE | 2018-07-24 08:44 | Discharge Summary ---
Date of Service July 21, 2018 Admission HPI Per Admitting Provider Mr. Doe is a 77 year old with past medical history of A Fib on chronic anticoagulation, Chronic Venous Insufficiency, Peripheral arterial disease, Hypothyroidism, Coronary Artery Disease, Hypertension, CVA, GERD who presented to the ER with flu-like symptoms. Pt. was recently admitted from 05/29-06/05 for a right lower extremity wound infection. Wound culture was positive for coag negative Staph. He completed a course of IV Ertapenem as an outpatient. Pt. has been following with the wound clinic and changes dressing every other day. Denies increased erythema, discharge, pain at site of ulcer. Repeat wound culture on 07/10 was positive for Staph aureus. He developed diffuse muscle aches/pains around 2 a.m. this morning. Complains of pain in both arms and legs, described as constant and severe. He also developed a runny nose, non-productive cough, severe frontal headache, sore throat and chills at home. He had sternal chest pain, was located in center of upper back as well. Chest discomfort/pain is now resolved. Denies fevers, SOB, acute increased LE edema, abdominal pain, diarrhea or constipation, dysuria or hematuria. Influenza by PCR was negative in the ER. CXR negative for acute abnormalities. Has a mild leukocytosis on labs, otherwise negative. U/a positive for blood, bacteria and protein; UC is pending. Will admit for further evaluation. Principal Diagnosis febrile illness: likely viral upper respiratory infection Discharge Exam General: Elderly male, in no acute distress. HEENT: NC/AT; PERRLA with EOMI; E. Lopez conjunctiva, MMM. No erythema of posterior pharynx Neck: Supple and nontender Cardiac: Irregular. Lungs: CTA bilaterally Abdomen: Bowel normoactive X 4; Nontender to palpation Rectal: Deferred : Deferred Back: NO spinous tenderness Extremities: Warm. Bilat LE edema, R>L. Right lower extremity with erythema extending from knee distally. Left lower extremity with mild erythema. Did not visualize ulcer on exam. Neuro: No focal weakness Skin: See above. Discharge Data Allergies Allergy/AdvReac Type Severity Reaction Status Date / Time amoxicillin Allergy Intermediate RASH, Verified 07/20/18 13:45 ITCHING cephalexin Allergy Intermediate RASH,ITCHIN Verified 07/20/18 13:45 G Cipro Allergy Intermediate RASH Verified 06/22/17 15:22 ciprofloxacin Allergy Intermediate RASH Verified 07/20/18 13:45 clavulanic acid Allergy Intermediate RASH, Verified 07/20/18 13:45 ITCHING Penicillins Allergy Intermediate AUGMENTIN-R Verified 07/20/18 13:45 KITTY,ITCHING morphine Allergy Mild RASH Verified 07/20/18 13:45 sulfamethoxazole Allergy Mild Rash Verified 07/20/18 13:45 [From Bactrim] trimethoprim [From Bactrim] Allergy Mild Rash Verified 07/20/18 13:45 Consultations 07/20/18 15:19 ED Decision to Admit Stat Hospital Course (1) Flu-like symptoms: - Presented with myalgias, headache, nasal congestion, productive cough and pharyngitis. - Influenza by PCR was negative. - Mild leukocytosis noted on labs; repeat CBC improve on the wing day despite not being on antibiotics. Patient clinically felt back to baseline. This is likely a viral infection. Plan is to schedule a close followup with Dr. Magaña his PCP to confirm that his fevers have subsided. Appointment is scheduled in 3 days. D/W son who agrees with plan. (2) Weakness: - Likely related to acute illness. -Patient improved on day of discharge. (3) Ulcer of right lower extremity: - Follows with wound care clinic and ID as an outpatient.. - Continue dressing changes every other day - No abx coverage indicated; has been afebrile and was recently evaluated by Dr. Cota. (4) Afib: - In A. fib on monitor, rated controlled. - Continue Coumadin 4 mg qMWF, 2 mg qTTSS. - INR was therapeutic - Continue Coreg 3.125 mg BID. (5) PAD (peripheral artery disease): - S/p arteriogram in Apr [address] Larsen. - Continue statin as prescribed. (6) Venous insufficiency: - Chronic; wound care as needed. (7) Hypothyroidism: - Continue levothyroxine 88 mcg daily. - TSH was 0.2 -- will need to discuss with PCP as outpatient. (8) CAD (coronary artery disease): - Complains of mild chest discomfort. - Trop was negative; will monitor x 2. - EKG without acute changes. - S/p stent placement in 2005 at [facility]. (9) HTN (hypertension): - Continue Coreg 3.125 mg BID and Spironolactone 25 mg BID as prescribed. (10) GERD (gastroesophageal reflux disease): - PPI daily. (11) DVT prophylaxis: - Coumadin. Total Time Total Time Spent Total Time Spent (In Minutes): 31 Total Time Includes: Examination of the Patient, Discharge Planning and Medication Reconciliation Discharge Plan Discharge Items Patient Disposition: Home - Home Health Services Reason For Visit: FU-LIKE SYMPTOMS Discharge Diagnosis: Flu symptoms Discharge Goals: Decrease discomfort Activity: Resume your previous activity Non-emergency contact: Primary Care Provider Call non-emergency contact if: you have any medication questions Follow-up/Referrals: Evans Magaña [Primary Care Provider] - 07/24/18 4:00 pm (Please, follow up with Dr. Magaña in the [place] [facility] on July 24 at 4:00 pm. *If you need to change this appointment, call the office at [phone].) Diet: Regular Addtl Provider Instructions: You likely had a viral infection. Given that you are feeling better today, despite not receiving any antibiotics. You were also checked for the flu which was negative. Will have you followup with Dr. Magaña in 3 days. If you start feeling worse before the appointment, call your PCP. Prescriptions: Continued atorvastatin 10 mg tablet 10 mg PO DAILY RF: 0 carvedilol [Coreg] 3.125 mg tablet 3.125 mg PO BID RF: 0 docusate sodium 100 mg capsule 100 mg PO BID PRN (Reason: constipation) RF: 0 levothyroxine 88 mcg capsule 88 mcg PO QAM RF: 0 potassium chloride [Klor-Con 8] 8 mEq tablet extended release 8 meq PO BID RF: 0 spironolactone 25 mg tablet 25 mg PO BID RF: 0 linezolid [Zyvox] 600 mg tablet 600 mg PO BID RF: 0 acetaminophen [Tylenol Extra Strength] 500 mg Tablet 1,000 mg PO BID RF: 0 pantoprazole 40 mg tablet,delayed release (DR/EC) 40 mg PO QAM RF: 0 warfarin [Coumadin] 4 mg Tablet 4 mg PO Q OTHER DAY RF: 0 warfarin [Coumadin] 2 mg Tablet 2 mg PO Q OTHER DAY RF: 0 Stand-Alone Forms: [facility] Discharge Orders: Discharge Order (Routine); Ordered 07/21/18 Ordered By: Kevin Lemus Admission Data Admit Date/Time: 07/20/18 16:53 Attending Provider: Kevin Lemus Admit Provider: Vi Castillo Primary Care Provider: Evans Magaña Other Providers: Vi Castillo Service: Telemetry Other Interventions: Discharge Summary Assessment (RN) Last Done: 07/21/18 17:07 DC Date/Time DO NOT enter until pt leaves facility: 07/21/18 17:50
== END 2018-07-21 17:50 | disposition home health service (06) ==
LOC: ED 12:27 → 2E 12:27 → SUATTDRO 16:53 → 2E 17:26

== ENCOUNTER 2018-07-24 22:55 | Inpatient (IN) ==
[2018-07-24] MEDS ORDERED: SODIUM CHLORIDE 0.9% 500 ML IV ONE (23:27)
[2018-07-25 00:04] LABS: Basophils # (auto) 0.02 K/uL (0-0.2); Basophils % (auto) 0.2 %; Eosinophils # (auto) 0.13 K/uL (0-0.5); Eosinophils % (auto) 1.1 %; Hematocrit (blood only) 35.4 % (42-52); Hemoglobin 11.9 g/dL (14.0-18.0); Immature Granulocytes # (auto) 0.07 K/uL (0.00-0.02); Immature Granulocytes % (auto) 0.6 %; Lymphocytes # (auto) 1.18 K/uL (1.2-3.4); Mean Corpuscular Hgb Conc 33.6 g/dL (32-36); Mean Corpuscular Volume 94.9 fL (80-100); Mean Platelet Volume 9.6 fL (7.4-10.4); Monocytes % (auto) 10.2 %; Neutrophils # (auto) 9.16 K/uL (1.4-6.5); Neutrophils % (auto) 77.9 %; Platelet Count 207 K/uL (130-400); RDW Coefficient of Variation 13.7 % (11.5-14.5); RDW Standard Deviation 48.2 fL (36.4-46.3); Red Blood Count 3.73 M/uL (4.7-6.1); White Blood Count 11.76 K/uL (4.8-10.8)
[2018-07-25 00:16] LABS: INR 1.9 (0.9-1.1); Partial Thromboplastin Ratio 1.4; Partial Thromboplastin Time 38.4 Seconds (21.0-31.0); Prothrombin Time 18.6 Seconds (9.0-12.0)
[2018-07-25 00:20] LABS: Albumin Level 2.9 gm/dl (3.4-5.0); BUN Creatinine Ratio 17.1 (10-20); Calcium 8.4 mg/dl (8.5-10.1); Creatinine Clr Calc Pharmacy 63.5 ml/min; Est GFR (African American) 91.6; Potassium 4.2 mmol/L (3.5-5.1)
[2018-07-25 00:23] LABS: Albumin Globulin Ratio 0.6 (0.9-2); Bilirubin,Total 0.4 mg/dl (0.2-1); Globulin 4.9 gm/dl (2.5-4.0); Total Protein 7.8 gm/dl (6.4-8.2)
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
[2018-07-25] MEDS ORDERED: DOCUSATE SODIUM 100 MG CAP PO PRN (05:14)
[2018-07-25] MEDS ORDERED: LINEZOLID 600 MG/300 ML D5W IV SCH (05:14)
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
[2018-07-25] MEDS: SODIUM CHLORIDE 0.9% 1000ML 1,000 ML IV SCH ×3 (05:34→21:18)
[2018-07-25] MEDS ORDERED: LINEZOLID 600 MG/300 ML BAG IV SCH (06:00)
[2018-07-25] MEDS: LEVOTHYROXINE SODIUM 88 MCG TABLET PO SCH (06:12)
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
[2018-07-25] MEDS: ATORVASTATIN 10 MG TAB PO SCH (08:28)
[2018-07-25] MEDS: CARVEDILOL 3.125 MG TAB PO SCH ×2 (08:28→21:17)
[2018-07-25] MEDS: SPIRONOLACTONE 25 MG TAB PO SCH ×2 (08:29→19:23)
[2018-07-25] MEDS: PANTOprazole 40 MG TAB PO SCH (08:29)
[2018-07-25 09:19] LABS: Basophils # (auto) 0.02 K/uL (0-0.2); Basophils % (auto) 0.2 %; Eosinophils # (auto) 0.14 K/uL (0-0.5); Eosinophils % (auto) 1.3 %; Hemoglobin 10.6 g/dL (14.0-18.0); Immature Granulocytes # (auto) 0.05 K/uL (0.00-0.02); Immature Granulocytes % (auto) 0.5 %; Lymphocytes # (auto) 1.42 K/uL (1.2-3.4); Lymphocytes % (auto) 12.8 %; Mean Corpuscular Hgb Conc 33.1 g/dL (32-36); Mean Corpuscular Volume 94.7 fL (80-100); Mean Platelet Volume 9.6 fL (7.4-10.4); Monocytes # (auto) 1.43 K/uL (0.11-0.59); Monocytes % (auto) 12.9 %; Neutrophils # (auto) 8.02 K/uL (1.4-6.5); Neutrophils % (auto) 72.3 %; Platelet Count 200 K/uL (130-400); RDW Coefficient of Variation 13.9 % (11.5-14.5); RDW Standard Deviation 48.1 fL (36.4-46.3); Red Blood Count 3.38 M/uL (4.7-6.1); White Blood Count 11.08 K/uL (4.8-10.8)
[2018-07-25 09:33] LABS: INR 1.9 (0.9-1.1); Prothrombin Time 18.5 Seconds (9.0-12.0)
--- NOTE | 2018-07-25 09:47 | Post Operative Brief Note ---
Immediate Post Op Note v1 Date of Surgery July 25, 2018 Pre & Post Diagnosis Pre-operative diagnosis: Infected left posterior head/scalp mass, likely epidermoid cyst Post-operative diagnosis: Same Procedure Excision left posterior head/scalp mass Surgeon Michelle Villarreal MD Machinist Mechanic Vi Ferraro PA-C Estimated Blood Loss 5 Findings Consistent with Post-Op Diagnosis Fluids 800 mL Specimens Posterior neck cyst to Pathology Anesthesia Type MAC Complications none Disposition Accompanied Patient To Recovery: Yes Disposition: Recovery Room
[2018-07-25 09:53] LABS: Albumin Level 2.4 gm/dl (3.4-5.0); BUN Creatinine Ratio 16.1 (10-20); Calcium 8.4 mg/dl (8.5-10.1); Creatinine Clr Calc Pharmacy 89.1 ml/min; Est GFR (African American) 108.9; Potassium 3.7 mmol/L (3.5-5.1)
[2018-07-25 09:54] LABS: Albumin Globulin Ratio 0.6 (0.9-2); Bilirubin,Total 0.5 mg/dl (0.2-1); Globulin 4.3 gm/dl (2.5-4.0); Total Protein 6.7 gm/dl (6.4-8.2)
[2018-07-25] MEDS: POTASSIUM CHLORIDE 10 MEQ TABCR PO SCH ×2 (10:16→21:17)
[2018-07-25] MEDS ORDERED: IOVERSOL 100ml IV PRN (11:30)
--- NOTE | 2018-07-25 12:06 | CT Scan Report ---
CT OF THE ABDOMEN AND PELVIS WITH CONTRAST CLINICAL HISTORY: abdominal pain, ?perirectal abscess,h/o colectomy COMPARISON STUDY: CT of the abdomen and pelvis October 08, 2016. TECHNIQUE: Following IV administration of 94 mL of Optiray-320, axial images of the abdomen and pelvi s were obtained from the lung bases to the proximal femurs. Images were reviewed in the axial, sagitt al, and coronal planes. IV contrast was administered without complication. Automated exposure contro l was utilized for the study. A dose lowering technique was utilized adhering to the principles of A DOUGLAS. Oral contrast was administered. CT DOSE: 384.75 mGy.cm FINDINGS: The heart is moderately enlarged. There is extensive coronary artery calcification. Gynecom astia is noted. Lower lung airspace opacities favor atelectasis. The liver, spleen, adrenal glands an d pancreas are unremarkable. There is mild bilateral hydroureteronephrosis likely due to distention o f the bladder. There is multifocal scarring within the kidneys. There is no evidence for a bowel obst ruction. No pneumatosis, free air or portal venous gas is present. Mildly enlarged right external leonardo ac lymph nodes are similar to prior CT. These are probably benign. Note is made of a complex horsesho e-shaped bilobed rim-enhancing perianal fluid collection along the posterior and lateral aspects of t he rectum that measures 4.9 cm in transverse dimension and 4.7 cm in AP dimension. A suspected associ ated fistula extends to the right gluteal fold is noted. Infiltration adjacent to the abscess represe nts cellulitis. An intramural component of the abscess within the left rectal wall may be present. Th e abscess extends to the levator. Possible right supralevator component is noted. Abscess is increase d in size when compared to study of October 08, 2016. IMPRESSION: 1. Complex horseshoe-shaped rim-enhancing perianal fluid collection consistent with a perianal absces s that measures 4.9 cm in transverse dimension and 4.7 cm in AP dimension. Associated fistula extends to the right gluteal fold. Probable intramural component within the left inferior rectal wall with p ossible supralevator component. 2. Mild bilateral hydroureteronephrosis likely due to significant distention of the bladder. 3. Moderate cardiomegaly. Extensive coronary artery calcification. Electronically signed by: Yao Velez M.D. 07/25/2018 12:05 PM
--- NOTE | 2018-07-25 12:59 | Hospitalist Progress Note ---
Date of Service July 25, 2018 Assessment & Plan (1) Perirectal abscess: This patient is a 77 year old with past medical history of A Fib on chronic anticoagulation, Chronic Venous Insufficiency, PAD, Hypothyroidism, CAD, HTN, CVA, GERD presented with rectal pain, weakness, and chills. He was recently admitted here with fever several days ago in the setting of an upper respiratory infection. Cultures from that time remain negative CT of the abdomen/pelvis today confirms a horseshoe shaped perirectal abscess that is quite large. He has exquisite tenderness and purulent drainage from the rectum on physical examination. With leukocytosis but remains afebrile here -Appreciate general surgery consultation-plan for I&D tonight -Continue to hold Coumadin -Start imipenem given his multiple allergies and need to cover for GI organisms -Follow blood cultures and wound culture from I&D -Pain control as needed (2) Normocytic anemia: hgb is 10.6. MCV is normocytic. -Check iron studies, B12, folate Also has a history of mild thrombocytopenia -Follow CBC in the morning (3) Hyponatremia: Na at 133. Pt was started on NaCl .9% 125ml/hr overnight. Likely due to dehydration and poor intake prior to his admission. (4) Elevated liver enzymes: Pt has slightly elevated AST, normal ALT, and elevated Alk phosphatase. All of trended downward today CPK was ordered to rule out rhabdo. Liver appears normal on CT scan -Could be secondary to acute illness -Follow LFTs (5) Hydronephrosis: CT of the Abdomen/Pelvis showed bilateral hydronephrosis with enlarged bladder likely secondary to urinary retention, palpable on exam Pt voided 400mL and bladder scan still showed 750mL in the bladder Pt has been straight cathed will continue to bladder scan every shift and straight cath for postvoid residual greater than 350 mL's Collect UA (6) Ulcer of right lower extremity: Pt has a hx of venous stasis dermatitis with ulcers of the R. lower extremity. He follows with wound care for his ulcers and takes linezolid 600mg BID -Hold linezolid while here on imipenem and restart upon discharge -Continue spinal lactone 25 mill grams p.o. twice daily for bilateral lower extremity edema (7) Venous ulcer: As above (8) Anticoagulant long-term use: On Coumadin for atrial fibrillation-on hold currently for surgery (9) Afib: Rate controlled -Continue Coreg for rate control -Follow on telemetry -Holding Coumadin as above -Follow INR in the morning (10) GERD (gastroesophageal reflux disease): -Continue PPI (11) PAD (peripheral artery disease): PAD (peripheral artery disease): - S/p arteriogram [place] Apr [address] Larsen. - Continue statin, not on aspirin likely due to being on warfarin (12) Hypothyroidism: TSH stable at 1.35, continue levothyroxine (13) CAD (coronary artery disease): - S/p stent placement in [address] [facility]. No evidence of acute coronary syndrome at this time (14) HTN (hypertension): Blood pressures controlled -Continue Coreg, spironolactone (15) Urinary retention: As above under "hydronephrosis" -Straight cath as needed may need to Place Jacob catheter -Start Flomax 0.4 mg p.o. nightly -Consider urology consultation if needed (16) DVT prophylaxis: INR 1.9 today Disposition-remain on medical floor Subjective Patient reports he is very tender in the bottom. He now feels like he has to have a bowel movement after drinking oral contrast for his CT scan. He also feels like he really has to urinate. His bladder did look distended had bilateral hydroureteronephrosis on CT scan as reviewed by me. Patient reports his mouth is feeling better, no further rhinorrhea, no chest pain or shortness of breath. Telemetry with atrial fibrillation with rates in the 80s Review of Systems All systems reviewed & are unremarkable except as noted in HPI & below Physical Exam Vital Signs (Past 24 Hours): Last Vital Signs Temp 37.2 C 07/25/18 07:46 Pulse 75 07/25/18 07:46 Resp 16 07/25/18 07:46 BP 110/62 07/25/18 07:46 Pulse Ox 95 07/25/18 07:46 Constitutional: WD/WN, vitals as above Eyes: PERRL, conjunctivae normal, anicteric sclerae Neck: trachea midline, no thyromegaly Respiratory: normal respiratory effort, lungs clear to auscultation Cardiovascular: Rate/Rhythm: regular rate; + abnormal rhythm (Irregularly irregular) Heart Sounds: no murmur Extremities: no edema Gastrointestinal (Abdomen): Inspection/Auscultation: abdomen normal to inspection and normal bowel sounds Percussion/Palpation: + abdomen tender (In the suprapubic region with firm full bladder palpated) Rectal Exam: + hemorrhoids (Small external) and + rectal tenderness (Right perianal region with exquisite tenderness to palpation, dark erythema with blanching, and induration with macerated open lesion centrally) Musculoskeletal: Extremities: extremities normal to inspection; no cyanosis and no clubbing Skin: no rashes, warm and dry Neurologic: moves all extremities and awake; no focal motor deficits Psychiatric: A+Ox3, euthymic affect Results & Data Laboratory Results 07/25/18 07/25/18 07/25/18 Range/Units 16:00 08:36 08:36 WBC (4.8-10.8) K/uL RBC (4.7-6.1) M/uL Hgb (14.0-18.0) g/dL Hct (42-52) % MCV (80-100) fL MCH (25-34) pg MCHC (32-36) g/dL RDW Std Deviation (36.4-46.3) fL RDW Coeff of Luci (11.5-14.5) % Plt Count (130-400) K/uL MPV (7.4-10.4) fL Immature Gran % (Auto) % Neut % (Auto) % Lymph % (Auto) % [place] % (Auto) % Eos % (Auto) % Baso % (Auto) % Immature Gran # (Auto) (0.00-0.02) K/uL Neut # (Auto) (1.4-6.5) K/uL Lymph # (Auto) (1.2-3.4) K/uL [place] # (Auto) (0.11-0.59) K/uL Eos # (Auto) (0-0.5) K/uL Baso # (Auto) (0-0.2) K/uL PT (9.0-12.0) Seconds INR (0.9-1.1) APTT (21.0-31.0) Seconds PTT Ratio Sodium (136-145) mmol/L Potassium (3.5-5.1) mmol/L Chloride (98-107) mmol/L Carbon Dioxide (21-32) mmol/L Anion Gap (3-11) BUN (7-18) mg/dl Creatinine (0.6-1.4) mg/dl Est Cr Clr Drug Dosing ml/min Est GFR ( Amer) Est GFR (Non-Af Amer) BUN/Creatinine Ratio (10-20) Glucose (70-99) mg/dl Lactate (0.4-2.0) mmol/L Calcium (8.5-10.1) mg/dl Iron 33 L (35-175) mcg/dl TIBC 184 L (250-450) mcg/dl Transferrin 144 L (200-360) mg/dl Transferrin % Sat 16 L (20-50) % Ferritin 220.5 (8-388) ng/ml Total Bilirubin (0.2-1) mg/dl AST (15-37) U/L ALT (12-78) U/L Alkaline Phosphatase (45-117) U/L Total Creatine Kinase 42 (39-308) U/L Total Protein (6.4-8.2) gm/dl Albumin (3.4-5.0) gm/dl Globulin (2.5-4.0) gm/dl Albumin/Globulin Ratio (0.9-2) Procalcitonin 0.58 H (0-0.5) ng/ml TSH (0.300-4.500) uIu/ml Urine Color Yellow Urine Appearance Clear (Clear) Urine pH 5.5 (4.5-7.5) Ur Specific [place] 1.024 (1.000-1.030) Urine Protein Negative (Negative) Urine Glucose (UA) Negative (Negative) Urine Ketones Negative (Negative) Urine Blood Trace H (Negative) Urine Nitrite Negative (Negative) Urine Bilirubin Negative (Negative) Urine Urobilinogen Negative (Negative) Ur Leukocyte Esterase Negative (Negative) Urine WBC (Auto) 1-5 (0-5) /hpf Urine RBC (Auto) 0-4 (0-4) /hpf U Hyaline Cast (Auto) 0 (0-5) /lpf U Epithel Cells (Auto) 10-20 H (0-5) /lpf Urine Bacteria (Auto) Negative (Negative) 07/25/18 07/25/18 07/25/18 Range/Units 08:36 08:36 08:36 WBC 11.08 H (4.8-10.8) K/uL RBC 3.38 L (4.7-6.1) M/uL Hgb 10.6 L (14.0-18.0) g/dL Hct 32.0 L (42-52) % MCV 94.7 (80-100) fL MCH 31.4 (25-34) pg MCHC 33.1 (32-36) g/dL RDW Std Deviation 48.1 H (36.4-46.3) fL RDW Coeff of Luci 13.9 (11.5-14.5) % Plt Count 200 (130-400) K/uL MPV 9.6 (7.4-10.4) fL Immature Gran % (Auto) 0.5 % Neut % (Auto) 72.3 % Lymph % (Auto) 12.8 % [place] % (Auto) 12.9 % Eos % (Auto) 1.3 % Baso % (Auto) 0.2 % Immature Gran # (Auto) 0.05 H (0.00-0.02) K/uL Neut # (Auto) 8.02 H (1.4-6.5) K/uL Lymph # (Auto) 1.42 (1.2-3.4) K/uL [place] # (Auto) 1.43 H (0.11-0.59) K/uL Eos # (Auto) 0.14 (0-0.5) K/uL Baso # (Auto) 0.02 (0-0.2) K/uL PT 18.5 H (9.0-12.0) Seconds INR 1.9 H (0.9-1.1) APTT (21.0-31.0) Seconds PTT Ratio Sodium 133 L (136-145) mmol/L Potassium 3.7 (3.5-5.1) mmol/L Chloride 100 (98-107) mmol/L Carbon Dioxide 26 (21-32) mmol/L Anion Gap 7.0 (3-11) BUN 11 (7-18) mg/dl Creatinine 0.67 (0.6-1.4) mg/dl Est Cr Clr Drug Dosing 89.1 ml/min Est GFR ( Amer) 108.9 Est GFR (Non-Af Amer) 94.0 BUN/Creatinine Ratio 16.1 (10-20) Glucose 123 H (70-99) mg/dl Lactate (0.4-2.0) mmol/L Calcium 8.4 L (8.5-10.1) mg/dl Iron (35-175) mcg/dl TIBC (250-450) mcg/dl Transferrin (200-360) mg/dl Transferrin % Sat (20-50) % Ferritin (8-388) ng/ml Total Bilirubin 0.5 (0.2-1) mg/dl AST 44 H (15-37) U/L ALT 43 (12-78) U/L Alkaline Phosphatase 110 (45-117) U/L Total Creatine Kinase (39-308) U/L Total Protein 6.7 (6.4-8.2) gm/dl Albumin 2.4 L (3.4-5.0) gm/dl Globulin 4.3 H (2.5-4.0) gm/dl Albumin/Globulin Ratio 0.6 L (0.9-2) Procalcitonin (0-0.5) ng/ml TSH (0.300-4.500) uIu/ml Urine Color Urine Appearance (Clear) Urine pH (4.5-7.5) Ur Specific [place] (1.000-1.030) Urine Protein (Negative) Urine Glucose (UA) (Negative) Urine Ketones (Negative) Urine Blood (Negative) Urine Nitrite (Negative) Urine Bilirubin (Negative) Urine Urobilinogen (Negative) Ur Leukocyte Esterase (Negative) Urine WBC (Auto) (0-5) /hpf Urine RBC (Auto) (0-4) /hpf U Hyaline Cast (Auto) (0-5) /lpf U Epithel Cells (Auto) (0-5) /lpf Urine Bacteria (Auto) (Negative) 07/24/18 07/24/18 07/24/18 Range/Units 23:51 23:51 23:51 WBC (4.8-10.8) K/uL RBC (4.7-6.1) M/uL Hgb (14.0-18.0) g/dL Hct (42-52) % MCV (80-100) fL MCH (25-34) pg MCHC (32-36) g/dL RDW Std Deviation (36.4-46.3) fL RDW Coeff of Luci (11.5-14.5) % Plt Count (130-400) K/uL MPV (7.4-10.4) fL Immature Gran % (Auto) % Neut % (Auto) % Lymph % (Auto) % [place] % (Auto) % Eos % (Auto) % Baso % (Auto) % Immature Gran # (Auto) (0.00-0.02) K/uL Neut # (Auto) (1.4-6.5) K/uL Lymph # (Auto) (1.2-3.4) K/uL [place] # (Auto) (0.11-0.59) K/uL Eos # (Auto) (0-0.5) K/uL Baso # (Auto) (0-0.2) K/uL PT 18.6 H (9.0-12.0) Seconds INR 1.9 H (0.9-1.1) APTT 38.4 H (21.0-31.0) Seconds PTT Ratio 1.4 Sodium 134 L (136-145) mmol/L Potassium 4.2 (3.5-5.1) mmol/L Chloride 100 (98-107) mmol/L Carbon Dioxide 27 (21-32) mmol/L Anion Gap 7.0 (3-11) BUN 16 (7-18) mg/dl Creatinine 0.94 (0.6-1.4) mg/dl Est Cr Clr Drug Dosing 63.5 ml/min Est GFR ( Amer) 91.6 Est GFR (Non-Af Amer) 79.0 BUN/Creatinine Ratio 17.1 (10-20) Glucose 136 H (70-99) mg/dl Lactate 1.9 (0.4-2.0) mmol/L Calcium 8.4 L (8.5-10.1) mg/dl Iron (35-175) mcg/dl TIBC (250-450) mcg/dl Transferrin (200-360) mg/dl Transferrin % Sat (20-50) % Ferritin (8-388) ng/ml Total Bilirubin 0.4 (0.2-1) mg/dl AST 72 H (15-37) U/L ALT 56 (12-78) U/L Alkaline Phosphatase 136 H (45-117) U/L Total Creatine Kinase (39-308) U/L Total Protein 7.8 (6.4-8.2) gm/dl Albumin 2.9 L (3.4-5.0) gm/dl Globulin 4.9 H (2.5-4.0) gm/dl Albumin/Globulin Ratio 0.6 L (0.9-2) Procalcitonin (0-0.5) ng/ml TSH 1.350 (0.300-4.500) uIu/ml Urine Color Urine Appearance (Clear) Urine pH (4.5-7.5) Ur Specific [place] (1.000-1.030) Urine Protein (Negative) Urine Glucose (UA) (Negative) Urine Ketones (Negative) Urine Blood (Negative) Urine Nitrite (Negative) Urine Bilirubin (Negative) Urine Urobilinogen (Negative) Ur Leukocyte Esterase (Negative) Urine WBC (Auto) (0-5) /hpf Urine RBC (Auto) (0-4) /hpf U Hyaline Cast (Auto) (0-5) /lpf U Epithel Cells (Auto) (0-5) /lpf Urine Bacteria (Auto) (Negative) 07/24/18 Range/Units 23:51 WBC 11.76 H (4.8-10.8) K/uL RBC 3.73 L (4.7-6.1) M/uL Hgb 11.9 L (14.0-18.0) g/dL Hct 35.4 L (42-52) % MCV 94.9 (80-100) fL MCH 31.9 (25-34) pg MCHC 33.6 (32-36) g/dL RDW Std Deviation 48.2 H (36.4-46.3) fL RDW Coeff of Luci 13.7 (11.5-14.5) % Plt Count 207 (130-400) K/uL MPV 9.6 (7.4-10.4) fL Immature Gran % (Auto) 0.6 % Neut % (Auto) 77.9 % Lymph % (Auto) 10.0 % [place] % (Auto) 10.2 % Eos % (Auto) 1.1 % Baso % (Auto) 0.2 % Immature Gran # (Auto) 0.07 H (0.00-0.02) K/uL Neut # (Auto) 9.16 H (1.4-6.5) K/uL Lymph # (Auto) 1.18 L (1.2-3.4) K/uL [place] # (Auto) 1.20 H (0.11-0.59) K/uL Eos # (Auto) 0.13 (0-0.5) K/uL Baso # (Auto) 0.02 (0-0.2) K/uL PT (9.0-12.0) Seconds INR (0.9-1.1) APTT (21.0-31.0) Seconds PTT Ratio Sodium (136-145) mmol/L Potassium (3.5-5.1) mmol/L Chloride (98-107) mmol/L Carbon Dioxide (21-32) mmol/L Anion Gap (3-11) BUN (7-18) mg/dl Creatinine (0.6-1.4) mg/dl Est Cr Clr Drug Dosing ml/min Est GFR ( Amer) Est GFR (Non-Af Amer) BUN/Creatinine Ratio (10-20) Glucose (70-99) mg/dl Lactate (0.4-2.0) mmol/L Calcium (8.5-10.1) mg/dl Iron (35-175) mcg/dl TIBC (250-450) mcg/dl Transferrin (200-360) mg/dl Transferrin % Sat (20-50) % Ferritin (8-388) ng/ml Total Bilirubin (0.2-1) mg/dl AST (15-37) U/L ALT (12-78) U/L Alkaline Phosphatase (45-117) U/L Total Creatine Kinase (39-308) U/L Total Protein (6.4-8.2) gm/dl Albumin (3.4-5.0) gm/dl Globulin (2.5-4.0) gm/dl Albumin/Globulin Ratio (0.9-2) Procalcitonin (0-0.5) ng/ml TSH (0.300-4.500) uIu/ml Urine Color Urine Appearance (Clear) Urine pH (4.5-7.5) Ur Specific [place] (1.000-1.030) Urine Protein (Negative) Urine Glucose (UA) (Negative) Urine Ketones (Negative) Urine Blood (Negative) Urine Nitrite (Negative) Urine Bilirubin (Negative) Urine Urobilinogen (Negative) Ur Leukocyte Esterase (Negative) Urine WBC (Auto) (0-5) /hpf Urine RBC (Auto) (0-4) /hpf U Hyaline Cast (Auto) (0-5) /lpf U Epithel Cells (Auto) (0-5) /lpf Urine Bacteria (Auto) (Negative) Diagnostic Findings CT OF THE ABDOMEN AND PELVIS WITH CONTRAST CLINICAL HISTORY: abdominal pain, ?perirectal abscess,h/o colectomy COMPARISON STUDY: CT of the abdomen and pelvis October 08, 2016. TECHNIQUE: Following IV administration of 94 mL of Optiray-320, axial images of the abdomen and pelvis were obtained from the lung bases to the proximal femurs. Images were reviewed in the axial, sagittal, and coronal planes. IV contrast was administered without complication. Automated exposure control was utilized for the study. A dose lowering technique was utilized adhering to the principles of ALARA. Oral contrast was administered. CT DOSE: 384.75 mGy.cm FINDINGS: The heart is moderately enlarged. There is extensive coronary artery calcification. Gynecomastia is noted. Lower lung airspace opacities favor atelectasis. The liver, spleen, adrenal glands and pancreas are unremarkable. There is mild bilateral hydroureteronephrosis likely due to distention of the bladder. There is multifocal scarring within the kidneys. There is no evidence for a bowel obstruction. No pneumatosis, free air or portal venous gas is present. Mildly enlarged right external iliac lymph nodes are similar to prior CT. These are probably benign. Note is made of a complex horseshoe-shaped bilobed rim-enhancing perianal fluid collection along the posterior and lateral aspects of the rectum that measures 4.9 cm in transverse dimension and 4.7 cm in AP dimension. A suspected associated fistula extends to the right gluteal fold is noted. Infiltration adjacent to the abscess represents cellulitis. An intramural component of the abscess within the left rectal wall may be present. The abscess extends to the levator. Possible right supralevator component is noted. Abscess is increased in size when compared to study of October 08, 2016. IMPRESSION: 1. Complex horseshoe-shaped rim-enhancing perianal fluid collection consistent with a perianal abscess that measures 4.9 cm in transverse dimension and 4.7 cm in AP dimension. Associated fistula extends to the right gluteal fold. Probable intramural component within the left inferior rectal wall with possible supralevator component. 2. Mild bilateral hydroureteronephrosis likely due to significant distention of the bladder. 3. Moderate cardiomegaly. Extensive coronary artery calcification. (1) CAD (coronary artery disease) Associated angina: with stable angina Coronary Disease-Associated Artery/Lesion type: [place] artery [place] vs. transplanted heart: [place] heart Qualified Code(s): I25.118 - Atherosclerotic heart disease of [place] coronary artery with other forms of angina pectoris (2) Afib Atrial fibrillation type: chronic Qualified Code(s): I48.2 - Chronic atrial fibrillation (3) Hypothyroidism Hypothyroidism type: acquired Qualified Code(s): E03.9 - Hypothyroidism, unspecified (4) HTN (hypertension) Hypertension type: unspecified Qualified Code(s): I10 - Essential (primary) hypertension
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
--- NOTE | 2018-07-25 14:17 | Medical Student Progress Note ---
Date of Service July 25, 2018 Assessment & Plan (1) Perianal abscess: Leukocytosis likely secondary to Perianal abscess with fistula Pt has a hx of perirectal abscess and perianal fistuala with new onset of pain in the rectum and bloody stool. On physical exam, no tearing of skin was visualized to explain bloody stool, but pt does have an internal hemmorhoid which may explain cause of bloody stool. Pts white count ist at 11.08. CT showed 4.9x4.7cm perirectal abscess with fistula into right buttock. CBC ordered for tomorrow to monitor leukocytosis. Surgery has been consulted in regards to fistula Blood cultures are pending, pt has been started on imipenem. Infectious Disease has been consulted. (2) Atrial fibrillation: Pt has hx of chronic afib on warfarin for anticoagulation and carvedilol 3.125mg tablet PO BID. Hold warfarin due to likelihood of patient undergoing surgery. Recheck INR in the morning. Atrial fibrillation type: paroxysmal Qualified Code(s): I48.0 - Paroxysmal atrial fibrillation (3) Hydronephrosis: CT of the Abdomen/Pelvis showed bilateral hydronephrosis with enlarged bladder likely secondary to urinary retention Pt voided 400mL and bladder scan still showed 750mL in the bladder Pt has been cathed U/A collected due to urinary stasis and leukocytosis (4) Elevated liver enzymes: Pt has slightly elevated AST, normal ALT, and elevated Alk phosphatase. CPK was ordered to rule out rhabdo. No acute changes of the liver showin in CT to suggest a cirrhosis. Alcohol withdrawal was considered for this patient due to the altered mental status, although we do not know this patient's baseline, and the elevated AST and normal ALT; however, AST has been downtrending. Processes of the bone marrow were also considered in the differential since Alk phos is elevated. Liver enzymes will be drawn in the morning to track trend. (5) Ulcer of right lower extremity: Pt has a hx of venous stasis dermatitis with ulcers of the R. lower extremity. He follows with wound care for his ulcers and takes linezolid 600mg BID, continue. Pt is on spirnolacton 25mg BID for his bilateral edema. (6) Normocytic anemia: hgb is 10.6. Anemia may be related to a chronic Iron deficiency since RDW is elevated. Pt did have low platelets during his prior hospitalization a few days ago. B12 and folate were ordered to look at anemia due B12 or folate deficiency. Iron studies were also ordered. (7) Hyponatremia: Na at 133. Pt was started on NaCl .9% 125ml/hr overnight. Likely due to dehydration and poor intake prior to his admission. (8) Hypothyroidism: TSH stable at 1.35, continue levothyroxine Hypothyroidism type: acquired Qualified Code(s): E03.9 - Hypothyroidism, unspecified Subjective Pt is a 77 yo M w/ a hx of Afib, venous dermatitis stasis w/ ulcers, PVD, perirectal abscess, perianal fistula, diverticulosis, Hypothyroidism, CAD, and HTN admitted for leukocytosis. Pt had been in the hospital and discharged on 07/21 due to febrile illness and elevated white count of 10.92, which had been attributed to viral URI. Upon returning to the ED, pt had a chief concern of worsening weakness followed by fever, chills, loss of appetite, rectal pain, constipation and a bloody bowel movement. Overnight, there were no changes. Telemetry reports he was in Afib between 70s-80s overnight and in the 80s this morning. Today, he was sleeping at the bedside and altered when I awoke him. He was aware that he was in the hospital, but unsure of date and time. He had no details to provide regarding what prompted his ED visit and his answers to my questions did not all make sense. He did comment that his URI sx had gotten better. He complains of abdominal pain and mentions having a bloody bm. Pt was seen by surgery this morning and CT scan was ordered to further assess the abdomen and rectum. He has been NPO due to the abdominal pain and ordered CT scan. Review of Systems +rhinorrhea, +oral sores, +fatigue, +abdominal pain, +constipation, +bloody stool Pt denies headache, dizziness, cough, dyspnea, chest pain, palpitation, n/v, diarrhea, calf pain, increase in LE edema Physical Exam Vital Signs (Past 24 Hours): Last Vital Signs Temp 37.2 C 07/25/18 07:46 Pulse 75 07/25/18 07:46 Resp 16 07/25/18 07:46 BP 110/62 07/25/18 07:46 Pulse Ox 95 07/25/18 07:46 Constitutional: well appearing sleeping comfortably in bed Eyes: PERRL, conjunctivae normal, anicteric sclerae ENMT: external ear and nose normal, oropharynx normal no ulcers visualized Neck: normal visual inspection Respiratory: normal respiratory effort, lungs clear to auscultation Cardiovascular: irregular rate and rhythm, no murmers, rubs, or gallops, peripheral pulses intact, no JVD Gastrointestinal (Abdomen): Inspection/Auscultation: abdomen normal to inspection and normal bowel sounds lower abdominal tendernes, firm bladder, internal hemorrhoid present, perianal erythema and edema present, raised induration on R. buttock Musculoskeletal: venous stasis dermatitis present on bilateral extremities with notable demarcation, bilateral edema and ulcerations noted Neurologic: awake, alert, oriented to place but not date or time Results & Data Laboratory Results WBC: 11.08 RBC: 3.38 Hgb: 10.6 Hct: 32 INR: 1.9 Na:133 K: 3.7 Cl:100 HCO3: 26 BUN: 11 Cr: .67 Glu: 123 AST: 72-> 44 Alk Phos: 136 ->[address] showed 4.9 x4.7cm perirectal abscess with fistula into right buttock CXR no acute process EKG: no remarkable changes U/A pending blood cultures pending
[2018-07-25] MEDS: IMIPENEM/CILASTATIN SODIUM 500 MG in DEXTROSE 5% 100 ML IV SCH ×2 (14:19→19:38)
[2018-07-25 14:39] LABS: Ferritin 220.5 ng/ml (8-388)
--- NOTE | 2018-07-25 14:58 | 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 Note ---
Date of Service: July 25, 2018 CT scan reviewed, which shows a perirectal horseshoe abscess. Discussed the findings with the patient and then with his son and [id number]. Risks, be nefits, and alternatives were discussed Discussed treatment options including surgery vs antibiotics alone. Discussed standard of treatment is surgical intervention and with antibiotics alone he runs the risk of worsening abscess and infection. Decision was made to proceed with I&D with likely drain placement and possible need for repeat procedures. Discussed risks which include, but are not limited to, pain, scarring, bleeding, infection, recurrence, fistula (can be up to a 50% risk of fistula forming, and increased moreso in this situation as pt already has signs of a fistula on CT scan), need for additional procedures, heart problems, heart attack, stroke, blood clots, breathing problems, , injury to surrounding structures, and need for additional procedures. OR this afternoon Continue NPO Continue IV abx
[2018-07-25] MEDS ORDERED: ROCURONIUM BROMIDE 10 MG/ML 5 ML VIAL ONE (15:51)
[2018-07-25] MEDS ORDERED: fentaNYL citrate 100 MCG/2 ML VIAL ONE ×2 (15:51→17:05)
[2018-07-25] MEDS ORDERED: LIDOCAINE HCL 2% 2 ML VIAL/AMP(20MG/ML) INFIL ONE (15:51)
[2018-07-25] MEDS ORDERED: ONDANSETRON INJ 2 MG/ML 2 ML VIAL ONE (15:51)
[2018-07-25] MEDS ORDERED: PROPOFOL IV EMULSION 10 MG/ML 20 ML VIAL IV ONE (15:51)
[2018-07-25] MEDS ORDERED: WARFARIN SOD 4 MG TAB PO SCH (16:00)
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
[2018-07-25 16:33] LABS: Appearance Urine Clear (Clear); Bacteria Urine Automated Negative (Negative); Bilirubin Urine Negative (Negative); Blood Urine Trace (Negative); Cast Urine Automated 0 /lpf (0-5); Color Urine Yellow; Glucose Urine UA Negative (Negative); Ketones Urine Negative (Negative); Leukocyte Esterase Urine Negative (Negative); Nitrite Urine Negative (Negative); Protein Urine Negative (Negative); RBC Urine Automated 0-4 /hpf (0-4); Specific Gravity Urine 1.024 (1.000-1.030); Urobilinogen Urine Negative (Negative); pH Urine 5.5 (4.5-7.5)
[2018-07-25] MEDS ORDERED: PHENYLEPHRINE HCL 10 MG/ML VIAL ONE (17:22)
--- NOTE | 2018-07-25 17:37 | Post Operative Brief Note ---
Immediate Post Op Note v1 Date of Surgery July 25, 2018 Pre & Post Diagnosis Operation Date: 07/25/18 14:05 Pre-Op Diagnosis: LEYDA-RECTAL ABSCESS Post-Op Diagnosis: LEYDA-RECTAL ABSCESS Procedure Operation Date: 07/25/18 14:05 Actual Procedures p Incision and Drainage Perirectal Abscess(Not Applicable), placement of 3 [place] drains - Michelle Vlilarreal MD Surgeon Michelle Villarreal MD Diet Supervisor Vi Ferraro PA-C Estimated Blood Loss 10 Findings Consistent with Post-Op Diagnosis Fluids 600 mL Specimens Leyda-rectal abscess fluid to Microbiology Drains [place] Drain (1/2in x2) Anesthesia Type General Complications none Disposition Accompanied Patient To Recovery: Yes Disposition: Recovery Room
--- NOTE | 2018-07-25 17:41 | Operative Report ---
Post Operative Report Pre & Post Diagnosis Operation Date: 07/25/18 14:05 Pre-Op Diagnosis: JEANNE-RECTAL ABSCESS Post-Op Diagnosis: JEANNE-RECTAL ABSCESS Procedure Operation Date: 07/25/18 14:05 Actual Procedures p Incision and Drainage Perirectal Abscess(Not Applicable) - Michelle Villarreal MD Surgeon Michelle Villarreal MD Meat Clerk Vi Ferraro PA-C Estimated Blood Loss 10 Findings See Below On rectal exam there was purulent fluid noted draining from the rectum; Perirectal horseshoe abscess with cavity extending posterior to rectum, at least 8 cm deep and anterior parallel to perineum to just below scrotum. Approximately 75 mL of light brown purulent fluid was evacuated. Fluids 600 mL Specimens Jeanne-rectal abscess fluid to Microbiology for gram stain, aerobic culture, and anaerobic culture Anesthesia Type General Complications none Disposition Accompanied Patient To Recovery: Yes Disposition: Recovery Room Description of Procedure History and Indications: Patient is a 77 yo male who presented with a large jeanne-rectal abscess. Discussed the findings with the patient and then with his son and [id number]. Risks, benefits, and alternatives were discussed Discussed treatment options including surgery vs antibiotics alone. Discussed standard of treatment is surgical intervention and with antibiotics alone he runs the risk of worsening abscess and infection. Decision was made to proceed with I&D with likely drain placement and possible need for repeat procedures. Discussed risks which include, but are not limited to, pain, scarring, bleeding, infection, recurrence, fistula, need for additional procedures, heart problems, heart attack, stroke, blood clots, breathing problems, , injury to surrounding structures, and need for additional procedures. Description of Procedure: The patient was taken to the operating room and placed in the lithotomy position. General Anesthesia was induced. The patient was prepped and draped in the usual sterile fashion. A timeout was held confirming the correct patient, procedure, and necessary equipment. On examination there was fluctuance felt in the right gluteal fold. On rectal examination there were left lateral internal hemorrhoids noted. There was some purulent fluid that drained from the rectum. A retractor was used to further examine the anus and rectum, however no fistula opening was identified visually or on palpation. An 18 gauge needle was used to identify the abscess cavity at the right gluteal fold. Approximately 20 ml of light brown purulent fluid was aspirated. This was sent to Microbiology for gram stain, aerobic culture, and anaerobic culture. A #11 scalpel was used to make an incision in this area. A significant amount of purulent fluid was expressed. This cavity tracked posterior to the rectum and to the left gluteal fold, where a counter incision was made. The abscess cavity travelled deep, at least 8 cm and also travelled parallel on both side of the perineum up to the scrotum. A counter incision was made on either side just inferior to the base of the scrotum. The wounds were probed and all loculations were broken up. The wounds and cavity were thoroughly irrigated. Three [place] drains were place, one tracking from the right gluteal fold incision, posterior to the rectum and exited through the counter incision in the left gluteal fold. This was sutured to itself in two locations with two 3-0 Nylon sutures. The second Lui drain was place from the right gluteal fold incision to the anterior counter incision on the right. This was sutured to itself in two locations with two 3-0 Nylon sutures. The third Lui drain was place from the left gluteal fold incision to the anterior counter incision on the left. This was sutured to itself in two locations with two 3-0 Nylon sutures. Hemostasis was ensured. Instrument and sponge counts were reported as correct. The wound was covered with sterile dressing. The patient was extubated and transferred to the recovery room in stable condition. I attest to the content of the Intraoperative Record and any orders documented t herein. Any exceptions are noted below.
[2018-07-25] MEDS: fentaNYL citrate 100 MCG/2 ML VIAL IV PRN ×2 (18:04→18:20)
[2018-07-25] MEDS ORDERED: NALOXONE HCL 0.4 MG/1 ML VIAL/CARP IV PRN (18:05)
[2018-07-25] MEDS ORDERED: ONDANSETRON INJ 2 MG/ML 2 ML VIAL IV PRN (18:05)
[2018-07-25] MEDS ORDERED: LABETALOL HCL IV 5 MG/ML 20ML IV PRN (18:05)
[2018-07-25] MEDS ORDERED: PROMETHAZINE HCL 12.5 MG in SODIUM CHLORIDE 0.9% 50 ML IV PRN (18:05)
[2018-07-25] MEDS ORDERED: fentaNYL citrate 100 MCG/2 ML VIAL IV PRN (18:05)
[2018-07-25] MEDS ORDERED: ATROPINE SULFATE 0.1 MG/ML 10ML SYR IV PRN (18:05)
[2018-07-25] MEDS ORDERED: FLUMAZENIL 0.1 MG/1 ML 10 ML VIAL IV PRN (18:05)
[2018-07-25] MEDS: TAMSULOSIN HCL 0.4 MG CAP PO SCH (21:17)
[2018-07-26] MEDS: IMIPENEM/CILASTATIN SODIUM 500 MG in DEXTROSE 5% 100 ML IV SCH ×4 (02:13→19:35)
[2018-07-26] MEDS: SODIUM CHLORIDE 0.9% 1000ML 1,000 ML IV SCH (05:48)
[2018-07-26] MEDS: LEVOTHYROXINE SODIUM 88 MCG TABLET PO SCH (05:48)
[2018-07-26 08:33] LABS: Basophils # (auto) 0.02 K/uL (0-0.2); Basophils % (auto) 0.2 %; Eosinophils # (auto) 0.12 K/uL (0-0.5); Eosinophils % (auto) 1.2 %; Hematocrit (blood only) 33.8 % (42-52); Immature Granulocytes # (auto) 0.05 K/uL (0.00-0.02); Immature Granulocytes % (auto) 0.5 %; Lymphocytes # (auto) 1.13 K/uL (1.2-3.4); Lymphocytes % (auto) 11.3 %; Mean Corpuscular Hgb Conc 32.5 g/dL (32-36); Mean Corpuscular Volume 94.4 fL (80-100); Mean Platelet Volume 9.9 fL (7.4-10.4); Monocytes # (auto) 1.23 K/uL (0.11-0.59); Monocytes % (auto) 12.3 %; Neutrophils # (auto) 7.41 K/uL (1.4-6.5); Neutrophils % (auto) 74.5 %; Platelet Count 214 K/uL (130-400); RDW Coefficient of Variation 13.8 % (11.5-14.5); Red Blood Count 3.58 M/uL (4.7-6.1); White Blood Count 9.96 K/uL (4.8-10.8)
[2018-07-26 08:52] LABS: Albumin Level 2.4 gm/dl (3.4-5.0); BUN Creatinine Ratio 12.5 (10-20); Bilirubin Direct 0.2 mg/dl (0-0.2); Calcium 8.7 mg/dl (8.5-10.1); Creatinine Clr Calc Pharmacy 90.4 ml/min; Est GFR (African American) 109.6; Est GFR (Non-African American) 94.6; INR 1.9 (0.9-1.1); Potassium 3.9 mmol/L (3.5-5.1); Prothrombin Time 18.6 Seconds (9.0-12.0)
[2018-07-26 08:55] LABS: Bilirubin,Total 0.6 mg/dl (0.2-1); Total Protein 6.6 gm/dl (6.4-8.2)
[2018-07-26] MEDS: ACETAMINOPHEN 325 MG TAB PO PRN (09:04)
[2018-07-26] MEDS: ATORVASTATIN 10 MG TAB PO SCH (09:06)
[2018-07-26] MEDS: SPIRONOLACTONE 25 MG TAB PO SCH ×2 (09:06→17:27)
[2018-07-26] MEDS: PANTOprazole 40 MG TAB PO SCH (09:06)
[2018-07-26] MEDS: CARVEDILOL 3.125 MG TAB PO SCH ×2 (09:07→19:36)
[2018-07-26] MEDS: POTASSIUM CHLORIDE 10 MEQ TABCR PO SCH ×2 (09:07→19:36)
--- NOTE | 2018-07-26 10:32 | Surgery Progress Note ---
Date of Service July 26, 2018 Assessment & Plan (1) Perirectal abscess: POD # 1 s/p I&D perirectal abscess (horseshoe abscess) -vitals stable, afebrile - Leukcytosis improved to 12K - pain controlled, much improved - adequate urine output Plan: May have regular diet continue pain management as needed Dressing changes BID and prn Continue IV Abx continue medical management Will most likely need colorectal eval as an outpatient given recurrence of perirectal abscess and fistula. Dr. Villarreal has seen and examined pt, agrees with above Supervising Physician Co-Signing Physician Notes I have seen and evaluated the patient and reviewed the medical records. I agree with the documentation above as written by Vi Ferraro PA-C. Pt doing well post-op. States pain has improved. Edema has decreased on exam, serosang drainage - Okay for regular diet - Change dressing BID and PRN for soilage; Kendla drains to remain in place - Encourage pt to be OOB - Continue abx - Would benefit from colorectal surgery evaluation given recurrent abscesses and possible fistula, after he starts recovering from acute episode Subjective pain much better today than yesterday no nausea or vomiting +hungry able to urinate Physical Exam Vital Signs (Past 24 Hours): Last Vital Signs Temp 36.9 C 07/26/18 07:33 Pulse 70 07/26/18 07:33 Resp 16 07/26/18 07:33 BP 135/78 07/26/18 07:33 Pulse Ox 94 07/26/18 07:33 Constitutional: WD/WN, vitals as above not ill appearing Respiratory: no respiratory distress Gastrointestinal (Abdomen): External rectal examination: 3 kendal drains intact, serosanguineous drainage, erythema has greatly improved, tenderness to palpation. Skin: no rashes, warm and dry Results & Data Laboratory Results 07/26/18 07/26/18 07/26/18 Range/Units 07:58 07:58 07:58 WBC (4.8-10.8) K/uL RBC (4.7-6.1) M/uL Hgb (14.0-18.0) g/dL Hct (42-52) % MCV (80-100) fL MCH (25-34) pg MCHC (32-36) g/dL RDW Std Deviation (36.4-46.3) fL RDW Coeff of Luci (11.5-14.5) % Plt Count (130-400) K/uL MPV (7.4-10.4) fL Immature Gran % (Auto) % Neut % (Auto) % Lymph % (Auto) % Smyth % (Auto) % Eos % (Auto) % Baso % (Auto) % Immature Gran # (Auto) (0.00-0.02) K/uL Neut # (Auto) (1.4-6.5) K/uL Lymph # (Auto) (1.2-3.4) K/uL Smyth # (Auto) (0.11-0.59) K/uL Eos # (Auto) (0-0.5) K/uL Baso # (Auto) (0-0.2) K/uL PT 18.6 H (9.0-12.0) Seconds INR 1.9 H (0.9-1.1) Sodium 135 L (136-145) mmol/L Potassium 3.9 (3.5-5.1) mmol/L Chloride 101 (98-107) mmol/L Carbon Dioxide 24 (21-32) mmol/L Anion Gap 10.0 (3-11) BUN 8 (7-18) mg/dl Creatinine 0.66 (0.6-1.4) mg/dl Est Cr Clr Drug Dosing 90.4 ml/min Est GFR ( Amer) 109.6 Est GFR (Non-Af Amer) 94.6 BUN/Creatinine Ratio 12.5 (10-20) Glucose 98 (70-99) mg/dl Calcium 8.7 (8.5-10.1) mg/dl Iron (35-175) mcg/dl TIBC (250-450) mcg/dl Transferrin (200-360) mg/dl Transferrin % Sat (20-50) % Ferritin (8-388) ng/ml Total Bilirubin 0.6 (0.2-1) mg/dl Direct Bilirubin 0.2 (0-0.2) mg/dl AST 30 (15-37) U/L ALT 37 (12-78) U/L Alkaline Phosphatase 100 (45-117) U/L Total Creatine Kinase (39-308) U/L Total Protein 6.6 (6.4-8.2) gm/dl Albumin 2.4 L (3.4-5.0) gm/dl Vitamin B12 754 (211-911) pg/ml Folate (>5.38) ng/ml Procalcitonin (0-0.5) ng/ml Urine Color Urine Appearance (Clear) Urine pH (4.5-7.5) Ur Specific [place] (1.000-1.030) Urine Protein (Negative) Urine Glucose (UA) (Negative) Urine Ketones (Negative) Urine Blood (Negative) Urine Nitrite (Negative) Urine Bilirubin (Negative) Urine Urobilinogen (Negative) Ur Leukocyte Esterase (Negative) Urine WBC (Auto) (0-5) /hpf Urine RBC (Auto) (0-4) /hpf U Hyaline Cast (Auto) (0-5) /lpf U Epithel Cells (Auto) (0-5) /lpf Urine Bacteria (Auto) (Negative) 07/26/18 07/26/18 07/25/18 Range/Units 07:58 07:58 16:00 WBC 9.96 (4.8-10.8) K/uL RBC 3.58 L (4.7-6.1) M/uL Hgb 11.0 L (14.0-18.0) g/dL Hct 33.8 L (42-52) % MCV 94.4 (80-100) fL MCH 30.7 (25-34) pg MCHC 32.5 (32-36) g/dL RDW Std Deviation 48.0 H (36.4-46.3) fL RDW Coeff of Luci 13.8 (11.5-14.5) % Plt Count 214 (130-400) K/uL MPV 9.9 (7.4-10.4) fL Immature Gran % (Auto) 0.5 % Neut % (Auto) 74.5 % Lymph % (Auto) 11.3 % [place]th % (Auto) 12.3 % Eos % (Auto) 1.2 % Baso % (Auto) 0.2 % Immature Gran # (Auto) 0.05 H (0.00-0.02) K/uL Neut # (Auto) 7.41 H (1.4-6.5) K/uL Lymph # (Auto) 1.13 L (1.2-3.4) K/uL [place] # (Auto) 1.23 H (0.11-0.59) K/uL Eos # (Auto) 0.12 (0-0.5) K/uL Baso # (Auto) 0.02 (0-0.2) K/uL PT (9.0-12.0) Seconds INR (0.9-1.1) Sodium (136-145) mmol/L Potassium (3.5-5.1) mmol/L Chloride (98-107) mmol/L Carbon Dioxide (21-32) mmol/L Anion Gap (3-11) BUN (7-18) mg/dl Creatinine (0.6-1.4) mg/dl Est Cr Clr Drug Dosing ml/min Est GFR ( Amer) Est GFR (Non-Af Amer) BUN/Creatinine Ratio (10-20) Glucose (70-99) mg/dl Calcium (8.5-10.1) mg/dl Iron (35-175) mcg/dl TIBC (250-450) mcg/dl Transferrin (200-360) mg/dl Transferrin % Sat (20-50) % Ferritin (8-388) ng/ml Total Bilirubin (0.2-1) mg/dl Direct Bilirubin (0-0.2) mg/dl AST (15-37) U/L ALT (12-78) U/L Alkaline Phosphatase (45-117) U/L Total Creatine Kinase (39-308) U/L Total Protein (6.4-8.2) gm/dl Albumin (3.4-5.0) gm/dl Vitamin B12 (211-911) pg/ml Folate 19.70 (>5.38) ng/ml Procalcitonin (0-0.5) ng/ml Urine Color Yellow Urine Appearance Clear (Clear) Urine pH 5.5 (4.5-7.5) Ur Specific [place] 1.024 (1.000-1.030) Urine Protein Negative (Negative) Urine Glucose (UA) Negative (Negative) Urine Ketones Negative (Negative) Urine Blood Trace H (Negative) Urine Nitrite Negative (Negative) Urine Bilirubin Negative (Negative) Urine Urobilinogen Negative (Negative) Ur Leukocyte Esterase Negative (Negative) Urine WBC (Auto) 1-5 (0-5) /hpf Urine RBC (Auto) 0-4 (0-4) /hpf U Hyaline Cast (Auto) 0 (0-5) /lpf U Epithel Cells (Auto) 10-20 H (0-5) /lpf Urine Bacteria (Auto) Negative (Negative) 07/25/18 07/25/18 Range/Units 08:36 08:36 WBC (4.8-10.8) K/uL RBC (4.7-6.1) M/uL Hgb (14.0-18.0) g/dL Hct (42-52) % MCV (80-100) fL MCH (25-34) pg MCHC (32-36) g/dL RDW Std Deviation (36.4-46.3) fL RDW Coeff of Luci (11.5-14.5) % Plt Count (130-400) K/uL MPV (7.4-10.4) fL Immature Gran % (Auto) % Neut % (Auto) % Lymph % (Auto) % [place] % (Auto) % Eos % (Auto) % Baso % (Auto) % Immature Gran # (Auto) (0.00-0.02) K/uL Neut # (Auto) (1.4-6.5) K/uL Lymph # (Auto) (1.2-3.4) K/uL [place] # (Auto) (0.11-0.59) K/uL Eos # (Auto) (0-0.5) K/uL Baso # (Auto) (0-0.2) K/uL PT (9.0-12.0) Seconds INR (0.9-1.1) Sodium (136-145) mmol/L Potassium (3.5-5.1) mmol/L Chloride (98-107) mmol/L Carbon Dioxide (21-32) mmol/L Anion Gap (3-11) BUN (7-18) mg/dl Creatinine (0.6-1.4) mg/dl Est Cr Clr Drug Dosing ml/min Est GFR ( Amer) Est GFR (Non-Af Amer) BUN/Creatinine Ratio (10-20) Glucose (70-99) mg/dl Calcium (8.5-10.1) mg/dl Iron 33 L (35-175) mcg/dl TIBC 184 L (250-450) mcg/dl Transferrin 144 L (200-360) mg/dl Transferrin % Sat 16 L (20-50) % Ferritin 220.5 (8-388) ng/ml Total Bilirubin (0.2-1) mg/dl Direct Bilirubin (0-0.2) mg/dl AST (15-37) U/L ALT (12-78) U/L Alkaline Phosphatase (45-117) U/L Total Creatine Kinase 42 (39-308) U/L Total Protein (6.4-8.2) gm/dl Albumin (3.4-5.0) gm/dl Vitamin B12 (211-911) pg/ml Folate (>5.38) ng/ml Procalcitonin 0.58 H (0-0.5) ng/ml Urine Color Urine Appearance (Clear) Urine pH (4.5-7.5) Ur Specific [place] (1.000-1.030) Urine Protein (Negative) Urine Glucose (UA) (Negative) Urine Ketones (Negative) Urine Blood (Negative) Urine Nitrite (Negative) Urine Bilirubin (Negative) Urine Urobilinogen (Negative) Ur Leukocyte Esterase (Negative) Urine WBC (Auto) (0-5) /hpf Urine RBC (Auto) (0-4) /hpf U Hyaline Cast (Auto) (0-5) /lpf U Epithel Cells (Auto) (0-5) /lpf Urine Bacteria (Auto) (Negative)
--- NOTE | 2018-07-26 12:07 | Hospitalist Progress Note ---
Date of Service July 26, 2018 Assessment & Plan (1) Perirectal abscess: This patient is a 77 year old with past medical history of A Fib on chronic anticoagulation, Chronic Venous Insufficiency, PAD, Hypothyroidism, CAD, HTN, CVA, GERD presented with rectal pain, weakness, and chills. He was recently admitted here with fever several days ago in the setting of an upper respiratory infection. Cultures from that time remain negative CT of the abdomen/pelvis here confirms a horseshoe shaped perirectal abscess that is quite large. He had exquisite tenderness and purulent drainage from the rectum on physical examination. With leukocytosis but remains afebrile --> WBC count coming down Much improved now Now s/p I&D of large amount of purulence in OR on 07/25, Lui drains left in place -Appreciate general surgery consultation -Continue to hold Coumadin -continue imipenem given his multiple allergies and need to cover for GI organisms -Follow blood cultures and wound culture from I&D -Pain control as needed -Surgery recommends f/u with Colorectal Surgery as an outpt given recurrent perirectal abscesses and fistula (2) Ulcer of right lower extremity: Pt has a hx of venous stasis dermatitis with ulcers of the R. lower extremity. He follows with wound care for his ulcers and takes linezolid 600mg BID -Hold linezolid while here on imipenem and restart upon discharge -Continue spironolactone 25mg p.o. twice daily for bilateral lower extremity edema (3) Venous insufficiency: continue tubigrip stockings (4) Afib: Rate controlled -Continue Coreg for rate control -will keep on tele one more day and then remove if continues to be stable post- op -continue holding Coumadin as above -Follow INR in the morning- still 1.9 today (5) GERD (gastroesophageal reflux disease): -Continue PPI (6) PAD (peripheral artery disease): PAD (peripheral artery disease): - S/p arteriogram [place] Apr [address] Larsen. - Continue statin, not on aspirin likely due to being on warfarin (7) Hypothyroidism: TSH stable at 1.35, continue levothyroxine (8) CAD (coronary artery disease): - S/p stent placement in 2005 at [facility]. No evidence of acute coronary syndrome at this time (9) HTN (hypertension): Blood pressures controlled -Continue Coreg, spironolactone (10) Anticoagulant long-term use: On Coumadin for atrial fibrillation-on hold currently for surgery (11) Elevated liver enzymes: Pt has slightly elevated AST, normal ALT, and elevated Alk phosphatase. All trended downward after admission CPK was ordered to rule out rhabdo-was normal at 42 Liver appears normal on CT scan -Could be secondary to acute illness -Follow LFTs (12) Hyponatremia: Na at 133 and now normalized with giving NS IVFs dc IVFs, now tolerating po well (13) Normocytic anemia: hgb is 11 MCV is normocytic. -iron studies consistent with anemia of chronic disease, B12/folate both normal Also has a history of mild thrombocytopenia which is resolved at this point -Follow CBC (14) Hydronephrosis: CT of the Abdomen/Pelvis showed bilateral hydronephrosis with enlarged bladder likely secondary to urinary retention, palpable on exam Pt voided 400mL and bladder scan still showed 750mL in the bladder Pt has been straight cathed x 1 and now improved, no further retention -will continue to bladder scan every shift and straight cath for postvoid res idual greater than 350 mL's UA negative -started Flomax (15) Urinary retention: As above under "hydronephrosis" -Straight cath as needed -Started Flomax 0.4 mg p.o. nightly -Consider urology consultation if needed (16) DVT prophylaxis: INR 1.9 today Disposition-remain on tele Subjective Feeling much better today, much less pain in buttocks, no more urinary retention. Denies other issues, is happy to be eating again. Had a BM Tele with Afib rates 80-90s Review of Systems All systems reviewed & are unremarkable except as noted in HPI & below Physical Exam Vital Signs (Past 24 Hours): Last Vital Signs Temp 36.9 C 07/26/18 07:33 Pulse 70 07/26/18 07:33 Resp 16 07/26/18 07:33 BP 135/78 07/26/18 07:33 Pulse Ox 94 07/26/18 07:33 Constitutional: WD/WN, vitals as above Eyes: PERRL, conjunctivae normal, anicteric sclerae Neck: trachea midline, no thyromegaly Respiratory: normal respiratory effort Auscultation: + wheezes (bilat exp wheeze) Cardiovascular: Rate/Rhythm: regular rate; + abnormal rhythm (Irregularly irregular) Heart Sounds: no murmur Extremities: no edema Gastrointestinal (Abdomen): Inspection/Auscultation: normal bowel sounds Percussion/Palpation: abdomen nontender Rectal Exam: + rectal lesions (right perirectal area with less erythema and induration,Penroses in place) Musculoskeletal: Extremities: extremities normal to inspection; no cyanosis and no clubbing Skin: no rashes, warm and dry (chronic venous stasis changes) + ulcer (right medial distal leg with ulcer with dressing in place) Neurologic: moves all extremities and awake; no focal motor deficits Psychiatric: A+Ox3, euthymic affect Results & Data Laboratory Results 07/26/18 07/26/18 07/26/18 Range/Units 07:58 07:58 07:58 WBC (4.8-10.8) K/uL RBC (4.7-6.1) M/uL Hgb (14.0-18.0) g/dL Hct (42-52) % MCV (80-100) fL MCH (25-34) pg MCHC (32-36) g/dL RDW Std Deviation (36.4-46.3) fL RDW Coeff of Luci (11.5-14.5) % Plt Count (130-400) K/uL MPV (7.4-10.4) fL Immature Gran % (Auto) % Neut % (Auto) % Lymph % (Auto) % [place] % (Auto) % Eos % (Auto) % Baso % (Auto) % Immature Gran # (Auto) (0.00-0.02) K/uL Neut # (Auto) (1.4-6.5) K/uL Lymph # (Auto) (1.2-3.4) K/uL Edgar # (Auto) (0.11-0.59) K/uL Eos # (Auto) (0-0.5) K/uL Baso # (Auto) (0-0.2) K/uL PT 18.6 H (9.0-12.0) Seconds INR 1.9 H (0.9-1.1) Sodium 135 L (136-145) mmol/L Potassium 3.9 (3.5-5.1) mmol/L Chloride 101 (98-107) mmol/L Carbon Dioxide 24 (21-32) mmol/L Anion Gap 10.0 (3-11) BUN 8 (7-18) mg/dl Creatinine 0.66 (0.6-1.4) mg/dl Est Cr Clr Drug Dosing 90.4 ml/min Est GFR ( Amer) 109.6 Est GFR (Non-Af Amer) 94.6 BUN/Creatinine Ratio 12.5 (10-20) Glucose 98 (70-99) mg/dl Calcium 8.7 (8.5-10.1) mg/dl Iron (35-175) mcg/dl TIBC (250-450) mcg/dl Transferrin (200-360) mg/dl Transferrin % Sat (20-50) % Ferritin (8-388) ng/ml Total Bilirubin 0.6 (0.2-1) mg/dl Direct Bilirubin 0.2 (0-0.2) mg/dl AST 30 (15-37) U/L ALT 37 (12-78) U/L Alkaline Phosphatase 100 (45-117) U/L Total Creatine Kinase (39-308) U/L Total Protein 6.6 (6.4-8.2) gm/dl Albumin 2.4 L (3.4-5.0) gm/dl Vitamin B12 754 (211-911) pg/ml Folate (>5.38) ng/ml Urine Color Urine Appearance (Clear) Urine pH (4.5-7.5) Ur Specific [place] (1.000-1.030) Urine Protein (Negative) Urine Glucose (UA) (Negative) Urine Ketones (Negative) Urine Blood (Negative) Urine Nitrite (Negative) Urine Bilirubin (Negative) Urine Urobilinogen (Negative) Ur Leukocyte Esterase (Negative) Urine WBC (Auto) (0-5) /hpf Urine RBC (Auto) (0-4) /hpf U Hyaline Cast (Auto) (0-5) /lpf U Epithel Cells (Auto) (0-5) /lpf Urine Bacteria (Auto) (Negative) 07/26/18 07/26/18 07/25/18 Range/Units 07:58 07:58 16:00 WBC 9.96 (4.8-10.8) K/uL RBC 3.58 L (4.7-6.1) M/uL Hgb 11.0 L (14.0-18.0) g/dL Hct 33.8 L (42-52) % MCV 94.4 (80-100) fL MCH 30.7 (25-34) pg MCHC 32.5 (32-36) g/dL RDW Std Deviation 48.0 H (36.4-46.3) fL RDW Coeff of Luci 13.8 (11.5-14.5) % Plt Count 214 (130-400) K/uL MPV 9.9 (7.4-10.4) fL Immature Gran % (Auto) 0.5 % Neut % (Auto) 74.5 % Lymph % (Auto) 11.3 % [place] % (Auto) 12.3 % Eos % (Auto) 1.2 % Baso % (Auto) 0.2 % Immature Gran # (Auto) 0.05 H (0.00-0.02) K/uL Neut # (Auto) 7.41 H (1.4-6.5) K/uL Lymph # (Auto) 1.13 L (1.2-3.4) K/uL Edgar # (Auto) 1.23 H (0.11-0.59) K/uL Eos # (Auto) 0.12 (0-0.5) K/uL Baso # (Auto) 0.02 (0-0.2) K/uL PT (9.0-12.0) Seconds INR (0.9-1.1) Sodium (136-145) mmol/L Potassium (3.5-5.1) mmol/L Chloride (98-107) mmol/L Carbon Dioxide (21-32) mmol/L Anion Gap (3-11) BUN (7-18) mg/dl Creatinine (0.6-1.4) mg/dl Est Cr Clr Drug Dosing ml/min Est GFR ( Amer) Est GFR (Non-Af Amer) BUN/Creatinine Ratio (10-20) Glucose (70-99) mg/dl Calcium (8.5-10.1) mg/dl Iron (35-175) mcg/dl TIBC (250-450) mcg/dl Transferrin (200-360) mg/dl Transferrin % Sat (20-50) % Ferritin (8-388) ng/ml Total Bilirubin (0.2-1) mg/dl Direct Bilirubin (0-0.2) mg/dl AST (15-37) U/L ALT (12-78) U/L Alkaline Phosphatase (45-117) U/L Total Creatine Kinase (39-308) U/L Total Protein (6.4-8.2) gm/dl Albumin (3.4-5.0) gm/dl Vitamin B12 (211-911) pg/ml Folate 19.70 (>5.38) ng/ml Urine Color Yellow Urine Appearance Clear (Clear) Urine pH 5.5 (4.5-7.5) Ur Specific [place] 1.024 (1.000-1.030) Urine Protein Negative (Negative) Urine Glucose (UA) Negative (Negative) Urine Ketones Negative (Negative) Urine Blood Trace H (Negative) Urine Nitrite Negative (Negative) Urine Bilirubin Negative (Negative) Urine Urobilinogen Negative (Negative) Ur Leukocyte Esterase Negative (Negative) Urine WBC (Auto) 1-5 (0-5) /hpf Urine RBC (Auto) 0-4 (0-4) /hpf U Hyaline Cast (Auto) 0 (0-5) /lpf U Epithel Cells (Auto) 10-20 H (0-5) /lpf Urine Bacteria (Auto) Negative (Negative) 07/25/18 Range/Units 08:36 WBC (4.8-10.8) K/uL RBC (4.7-6.1) M/uL Hgb (14.0-18.0) g/dL Hct (42-52) % MCV (80-100) fL MCH (25-34) pg MCHC (32-36) g/dL RDW Std Deviation (36.4-46.3) fL RDW Coeff of Luci (11.5-14.5) % Plt Count (130-400) K/uL MPV (7.4-10.4) fL Immature Gran % (Auto) % Neut % (Auto) % Lymph % (Auto) % Edgar % (Auto) % Eos % (Auto) % Baso % (Auto) % Immature Gran # (Auto) (0.00-0.02) K/uL Neut # (Auto) (1.4-6.5) K/uL Lymph # (Auto) (1.2-3.4) K/uL Edgar # (Auto) (0.11-0.59) K/uL Eos # (Auto) (0-0.5) K/uL Baso # (Auto) (0-0.2) K/uL PT (9.0-12.0) Seconds INR (0.9-1.1) Sodium (136-145) mmol/L Potassium (3.5-5.1) mmol/L Chloride (98-107) mmol/L Carbon Dioxide (21-32) mmol/L Anion Gap (3-11) BUN (7-18) mg/dl Creatinine (0.6-1.4) mg/dl Est Cr Clr Drug Dosing ml/min Est GFR ( Amer) Est GFR (Non-Af Amer) BUN/Creatinine Ratio (10-20) Glucose (70-99) mg/dl Calcium (8.5-10.1) mg/dl Iron 33 L (35-175) mcg/dl TIBC 184 L (250-450) mcg/dl Transferrin 144 L (200-360) mg/dl Transferrin % Sat 16 L (20-50) % Ferritin 220.5 (8-388) ng/ml Total Bilirubin (0.2-1) mg/dl Direct Bilirubin (0-0.2) mg/dl AST (15-37) U/L ALT (12-78) U/L Alkaline Phosphatase (45-117) U/L Total Creatine Kinase 42 (39-308) U/L Total Protein (6.4-8.2) gm/dl Albumin (3.4-5.0) gm/dl Vitamin B12 (211-911) pg/ml Folate (>5.38) ng/ml Urine Color Urine Appearance (Clear) Urine pH (4.5-7.5) Ur Specific [place] (1.000-1.030) Urine Protein (Negative) Urine Glucose (UA) (Negative) Urine Ketones (Negative) Urine Blood (Negative) Urine Nitrite (Negative) Urine Bilirubin (Negative) Urine Urobilinogen (Negative) Ur Leukocyte Esterase (Negative) Urine WBC (Auto) (0-5) /hpf Urine RBC (Auto) (0-4) /hpf U Hyaline Cast (Auto) (0-5) /lpf U Epithel Cells (Auto) (0-5) /lpf Urine Bacteria (Auto) (Negative) (1) CAD (coronary artery disease) Associated angina: with stable angina Coronary Disease-Associated Artery/Lesion type: [place] artery [place] vs. transplanted heart: rincon heart Qualified Code(s): I25.118 - Atherosclerotic heart disease of [place] coronary artery with other forms of angina pectoris (2) Afib Atrial fibrillation type: chronic Qualified Code(s): I48.2 - Chronic atrial fibrillation (3) Hypothyroidism Hypothyroidism type: acquired Qualified Code(s): E03.9 - Hypothyroidism, unspecified (4) HTN (hypertension) Hypertension type: unspecified Qualified Code(s): I10 - Essential (primary) hypertension
[2018-07-26] MEDS ORDERED: WARFARIN SOD 2 MG TAB PO SCH (16:00)
[2018-07-26] MEDS ORDERED: LIDOCAINE 2% JELLY 5 ML TUBE ONE (17:16)
[2018-07-26] MEDS ORDERED: LIDOCAINE 2% JELLY 5 ML TUBE EXT ONE (17:45)
[2018-07-26] MEDS: TAMSULOSIN HCL 0.4 MG CAP PO SCH (19:36)
[2018-07-27] MEDS: IMIPENEM/CILASTATIN SODIUM 500 MG in DEXTROSE 5% 100 ML IV SCH ×4 (01:36→19:42)
[2018-07-27] MEDS: LEVOTHYROXINE SODIUM 88 MCG TABLET PO SCH (06:03)
[2018-07-27 07:06] LABS: Basophils # (auto) 0.01 K/uL (0-0.2); Basophils % (auto) 0.1 %; Eosinophils # (auto) 0.21 K/uL (0-0.5); Eosinophils % (auto) 2.4 %; Hematocrit (blood only) 32.6 % (42-52); Hemoglobin 10.7 g/dL (14.0-18.0); Immature Granulocytes # (auto) 0.06 K/uL (0.00-0.02); Immature Granulocytes % (auto) 0.7 %; Lymphocytes # (auto) 1.21 K/uL (1.2-3.4); Lymphocytes % (auto) 13.7 %; Mean Corpuscular Hgb Conc 32.8 g/dL (32-36); Mean Corpuscular Volume 93.7 fL (80-100); Mean Platelet Volume 9.5 fL (7.4-10.4); Monocytes # (auto) 0.92 K/uL (0.11-0.59); Monocytes % (auto) 10.4 %; Neutrophils % (auto) 72.7 %; Platelet Count 249 K/uL (130-400); RDW Coefficient of Variation 13.8 % (11.5-14.5); RDW Standard Deviation 47.5 fL (36.4-46.3); Red Blood Count 3.48 M/uL (4.7-6.1); White Blood Count 8.81 K/uL (4.8-10.8)
[2018-07-27 07:20] LABS: BUN Creatinine Ratio 14.1 (10-20); Calcium 8.3 mg/dl (8.5-10.1); Creatinine Clr Calc Pharmacy 85.2 ml/min; Est GFR (Non-African American) 92.3; Potassium 3.9 mmol/L (3.5-5.1)
[2018-07-27 07:27] LABS: INR 1.7 (0.9-1.1); Prothrombin Time 16.6 Seconds (9.0-12.0)
[2018-07-27] MEDS: ACETAMINOPHEN 325 MG TAB PO PRN ×2 (08:46→16:24)
[2018-07-27] MEDS: CARVEDILOL 3.125 MG TAB PO SCH ×2 (08:47→19:43)
[2018-07-27] MEDS: SPIRONOLACTONE 25 MG TAB PO SCH ×2 (08:48→16:22)
[2018-07-27] MEDS: ATORVASTATIN 10 MG TAB PO SCH (08:49)
[2018-07-27] MEDS: PANTOprazole 40 MG TAB PO SCH (08:49)
[2018-07-27] MEDS: POTASSIUM CHLORIDE 10 MEQ TABCR PO SCH ×2 (08:49→19:43)
--- NOTE | 2018-07-27 13:30 | Surgery Progress Note ---
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 - PT/OT - May be ready from surgical perspective for discharge in 1-2 days - Recommend home health (unless being discharged to a SNF), will need frequent and diligent dressing changes Subjective Pt states he is doing "so-so." Denies any significant buttock/adelina-rectal pain except when being changed. He does not believe there has been any purulent drainage from the wound. (+)BM. Constitutional: as per Subjective / HPI Physical Exam Vital Signs (Past 24 Hours): Last Vital Signs Temp 36.5 C 07/27/18 11:51 Pulse 73 07/27/18 11:51 Resp 18 07/27/18 11:51 BP 104/67 07/27/18 11:51 Pulse Ox 96 07/27/18 11:51 Constitutional: no acute distress Respiratory: normal respiratory effort Cardiovascular: Rate/Rhythm: regular rate Gastrointestinal (Abdomen): Buttock remains erythematous and moist, [place] drains in place, serosang drainage and some stool soilage Results & Data Laboratory Results 07/27/18 07/27/18 07/27/18 Range/Units 06:43 06:43 06:43 WBC 8.81 (4.8-10.8) K/uL RBC 3.48 L (4.7-6.1) M/uL Hgb 10.7 L (14.0-18.0) g/dL Hct 32.6 L (42-52) % MCV 93.7 (80-100) fL MCH 30.7 (25-34) pg MCHC 32.8 (32-36) g/dL RDW Std Deviation 47.5 H (36.4-46.3) fL RDW Coeff of Luci 13.8 (11.5-14.5) % Plt Count 249 (130-400) K/uL MPV 9.5 (7.4-10.4) fL Immature Gran % (Auto) 0.7 % Neut % (Auto) 72.7 % Lymph % (Auto) 13.7 % [place] % (Auto) 10.4 % Eos % (Auto) 2.4 % Baso % (Auto) 0.1 % Immature Gran # (Auto) 0.06 H (0.00-0.02) K/uL Neut # (Auto) 6.40 (1.4-6.5) K/uL Lymph # (Auto) 1.21 (1.2-3.4) K/uL [place] # (Auto) 0.92 H (0.11-0.59) K/uL Eos # (Auto) 0.21 (0-0.5) K/uL Baso # (Auto) 0.01 (0-0.2) K/uL PT 16.6 H (9.0-12.0) Seconds INR 1.7 H (0.9-1.1) Sodium 136 (136-145) mmol/L Potassium 3.9 (3.5-5.1) mmol/L Chloride 101 (98-107) mmol/L Carbon Dioxide 27 (21-32) mmol/L Anion Gap 7.0 (3-11) BUN 10 (7-18) mg/dl Creatinine 0.70 (0.6-1.4) mg/dl Est Cr Clr Drug Dosing 85.2 ml/min Est GFR ( Amer) 107.0 Est GFR (Non-Af Amer) 92.3 BUN/Creatinine Ratio 14.1 (10-20) Glucose 99 (70-99) mg/dl Calcium 8.3 L (8.5-10.1) mg/dl
[2018-07-27] MEDS: WARFARIN SOD 4 MG TAB PO SCH (16:22)
--- NOTE | 2018-07-27 18:03 | Hospitalist Progress Note ---
Date of Service July 27, 2018 Assessment & Plan (1) Perirectal abscess: This patient is a 77 year old with past medical history of A Fib on chronic anticoagulation, Chronic Venous Insufficiency, PAD, Hypothyroidism, CAD, HTN, CVA, GERD presented with rectal pain, weakness, and chills. He was recently admitted here with fever several days ago in the setting of an upper respiratory infection. Blood cultures from that time remain negative CT of the abdomen/pelvis here confirms a horseshoe shaped perirectal abscess that is quite large. He had exquisite tenderness and purulent drainage from the rectum on physical examination. Now status post I&D of large amount of purulence in OR on 07/25, [place] drains left in place With leukocytosis but remains afebrile --> WBC count continues to decrease Wound cultures growing 2 different gram-negative rods-ID and sensitivity pending Much improved now overall -Appreciate general surgery consultation -Okay to restart Coumadin -continue imipenem given his multiple allergies and need to cover for GI organisms, hopeful to be able to convert to p.o. antibiotic prior to discharge -Follow blood cultures and wound culture from I&D -Pain control as needed -Surgery recommends f/u with Colorectal Surgery as an outpt given recurrent perirectal abscesses and fistula -Surgery may remove 1 of the [place] drains before discharge, and then will need home nursing to check on his wounds and drains (2) Ulcer of right lower extremity: Pt has a hx of venous stasis dermatitis with ulcers of the R. lower extremity. He follows with wound care for his ulcers and takes linezolid 600mg BID -Hold linezolid while here on imipenem and restart upon discharge -Continue spironolactone 25mg p.o. twice daily for bilateral lower extremity edema (3) Venous insufficiency: continue tubigrip stockings (4) Afib: Rate controlled -Continue Coreg for rate control -Restarting Coumadin as above as per surgery's recommendation -Follow INR in the morning-down to 1.7 today -Okay to transition off telemetry (5) GERD (gastroesophageal reflux disease): -Continue PPI (6) PAD (peripheral artery disease): PAD (peripheral artery disease): - S/p arteriogram [place] Apr [address] Larsen. - Continue statin, not on aspirin likely due to being on warfarin (7) Hypothyroidism: TSH stable at 1.35, continue levothyroxine (8) CAD (coronary artery disease): - S/p stent placement in 2005 at [facility]. No evidence of acute coronary syndrome at this time (9) HTN (hypertension): Blood pressures controlled -Continue Coreg, spironolactone (10) Anticoagulant long-term use: On Coumadin for atrial fibrillation-was on hold for surgery, no restarting (11) Elevated liver enzymes: Pt has slightly elevated AST, normal ALT, and elevated Alk phosphatase. All trended downward after admission CPK was ordered to rule out rhabdo-was normal at 42 Liver appears normal on CT scan -Could have been secondary to acute illness -Follow LFTs (12) Hyponatremia: Na at 133 and now normalized with giving NS IVFs dc IVFs, now tolerating po well (13) Normocytic anemia: hgb is 10.7 MCV is normocytic. -iron studies consistent with anemia of chronic disease, B12/folate both normal Also has a history of mild thrombocytopenia which is resolved at this point -Follow CBC (14) Hydronephrosis: CT of the Abdomen/Pelvis showed bilateral hydronephrosis with enlarged bladder likely secondary to severe urinary retention greater than 1 L, palpable on exam Pt voided 400mL and bladder scan still showed 750mL in the bladder Pt has been straight cathed x 2 and then Jacob catheter placed -Jacob should remain in place for 7 to 10 days to allow bladder to decompress UA negative -started Flomax -Urology consulted (15) Urinary retention: As above under "hydronephrosis" (16) DVT prophylaxis: Coumadin, INR 1.7 Disposition-transition medical floor PT/OT consults Disposition likely to home in the next 1 to 2 days after cultures resulted Subjective Patient feeling well today. Still retaining urine overnight over a liter and had a Jacob catheter placed. I discussed the case with surgery. He is moving his bowels. Denies chest pain or shortness of breath. Telemetry with atrial fibrillation with rates in the 80s Review of Systems All systems reviewed & are unremarkable except as noted in HPI & below Physical Exam Vital Signs (Past 24 Hours): Last Vital Signs Temp 36.8 C 07/27/18 15:13 Pulse 84 07/27/18 15:13 Resp 16 07/27/18 15:13 BP 107/59 L 07/27/18 15:13 Pulse Ox 96 07/27/18 15:13 Constitutional: WD/WN, vitals as above Eyes: PERRL, conjunctivae normal, anicteric sclerae Neck: trachea midline, no thyromegaly Respiratory: normal respiratory effort, lungs clear to auscultation normal respiratory effort Cardiovascular: Rate/Rhythm: regular rate; + abnormal rhythm (Irregularly irregular) Heart Sounds: no murmur Extremities: no edema Gastrointestinal (Abdomen): Inspection/Auscultation: normal bowel sounds Percussion/Palpation: abdomen nontender Musculoskeletal: Extremities: extremities normal to inspection; no cyanosis and no clubbing Skin: no rashes, warm and dry (chronic venous stasis changes) + ulcer (right medial distal leg with ulcer with dressing in place) Neurologic: moves all extremities and awake; no focal motor deficits Psychiatric: A+Ox3, euthymic affect Genitourinary: Jacob catheter in place draining clear yellow urine Results & Data Laboratory Results 07/28/18 07/28/18 07/28/18 Range/Units 05:25 05:25 05:25 WBC 9.98 (4.8-10.8) K/uL RBC 3.64 L (4.7-6.1) M/uL Hgb 11.4 L (14.0-18.0) g/dL Hct 34.1 L (42-52) % MCV 93.7 (80-100) fL MCH 31.3 (25-34) pg MCHC 33.4 (32-36) g/dL RDW Std Deviation 47.3 H (36.4-46.3) fL RDW Coeff of Luci 13.8 (11.5-14.5) % Plt Count 278 (130-400) K/uL MPV 9.6 (7.4-10.4) fL Immature Gran % (Auto) 0.9 % Neut % (Auto) 76.0 % Lymph % (Auto) 10.5 % [place] % (Auto) 10.7 % Eos % (Auto) 1.8 % Baso % (Auto) 0.1 % Immature Gran # (Auto) 0.09 H (0.00-0.02) K/uL Neut # (Auto) 7.58 H (1.4-6.5) K/uL Lymph # (Auto) 1.05 L (1.2-3.4) K/uL [place] # (Auto) 1.07 H (0.11-0.59) K/uL Eos # (Auto) 0.18 (0-0.5) K/uL Baso # (Auto) 0.01 (0-0.2) K/uL PT 15.4 H (9.0-12.0) Seconds INR 1.5 H (0.9-1.1) Sodium 134 L (136-145) mmol/L Potassium 4.1 (3.5-5.1) mmol/L Chloride 98 (98-107) mmol/L Carbon Dioxide 30 (21-32) mmol/L Anion Gap 6.0 (3-11) BUN 8 (7-18) mg/dl Creatinine 0.65 (0.6-1.4) mg/dl Est Cr Clr Drug Dosing 91.8 ml/min Est GFR ( Amer) 110.3 Est GFR (Non-Af Amer) 95.2 BUN/Creatinine Ratio 11.9 (10-20) Glucose 103 H (70-99) mg/dl Calcium 8.4 L (8.5-10.1) mg/dl 07/27/18 07/27/18 Range/Units 06:43 06:43 WBC (4.8-10.8) K/uL RBC (4.7-6.1) M/uL Hgb (14.0-18.0) g/dL Hct (42-52) % MCV (80-100) fL MCH (25-34) pg MCHC (32-36) g/dL RDW Std Deviation (36.4-46.3) fL RDW Coeff of Luci (11.5-14.5) % Plt Count (130-400) K/uL MPV (7.4-10.4) fL Immature Gran % (Auto) % Neut % (Auto) % Lymph % (Auto) % [place] % (Auto) % Eos % (Auto) % Baso % (Auto) % Immature Gran # (Auto) (0.00-0.02) K/uL Neut # (Auto) (1.4-6.5) K/uL Lymph # (Auto) (1.2-3.4) K/uL [place] # (Auto) (0.11-0.59) K/uL Eos # (Auto) (0-0.5) K/uL Baso # (Auto) (0-0.2) K/uL PT 16.6 H (9.0-12.0) Seconds INR 1.7 H (0.9-1.1) Sodium 136 (136-145) mmol/L Potassium 3.9 (3.5-5.1) mmol/L Chloride 101 (98-107) mmol/L Carbon Dioxide 27 (21-32) mmol/L Anion Gap 7.0 (3-11) BUN 10 (7-18) mg/dl Creatinine 0.70 (0.6-1.4) mg/dl Est Cr Clr Drug Dosing 85.2 ml/min Est GFR ( Amer) 107.0 Est GFR (Non-Af Amer) 92.3 BUN/Creatinine Ratio 14.1 (10-20) Glucose 99 (70-99) mg/dl Calcium 8.3 L (8.5-10.1) mg/dl (1) CAD (coronary artery disease) Associated angina: with stable angina Coronary Disease-Associated Ar robert/Lesion type: [place] artery [place] vs. transplanted heart: [place] heart Qualified Code(s): I25.118 - Atherosclerotic heart disease of [place] coronary artery with other forms of angina pectoris (2) Afib Atrial fibrillation type: chronic Qualified Code(s): I48.2 - Chronic atrial fibrillation (3) Hypothyroidism Hypothyroidism type: acquired Qualified Code(s): E03.9 - Hypothyroidism, unspecified (4) HTN (hypertension) Hypertension type: unspecified Qualified Code(s): I10 - Essential (primary) hypertension
[2018-07-27] MEDS: TAMSULOSIN HCL 0.4 MG CAP PO SCH (19:43)
[2018-07-28] MEDS: ACETAMINOPHEN 325 MG TAB PO PRN (00:28)
[2018-07-28] MEDS: IMIPENEM/CILASTATIN SODIUM 500 MG in DEXTROSE 5% 100 ML IV SCH ×2 (02:17→08:31)
[2018-07-28] MEDS: LEVOTHYROXINE SODIUM 88 MCG TABLET PO SCH (05:30)
[2018-07-28 05:52] LABS: Basophils # (auto) 0.01 K/uL (0-0.2); Basophils % (auto) 0.1 %; Eosinophils # (auto) 0.18 K/uL (0-0.5); Eosinophils % (auto) 1.8 %; Hematocrit (blood only) 34.1 % (42-52); Hemoglobin 11.4 g/dL (14.0-18.0); Immature Granulocytes # (auto) 0.09 K/uL (0.00-0.02); Immature Granulocytes % (auto) 0.9 %; Lymphocytes # (auto) 1.05 K/uL (1.2-3.4); Lymphocytes % (auto) 10.5 %; Mean Corpuscular Hgb Conc 33.4 g/dL (32-36); Mean Corpuscular Volume 93.7 fL (80-100); Mean Platelet Volume 9.6 fL (7.4-10.4); Monocytes # (auto) 1.07 K/uL (0.11-0.59); Monocytes % (auto) 10.7 %; Neutrophils # (auto) 7.58 K/uL (1.4-6.5); Platelet Count 278 K/uL (130-400); RDW Coefficient of Variation 13.8 % (11.5-14.5); RDW Standard Deviation 47.3 fL (36.4-46.3); Red Blood Count 3.64 M/uL (4.7-6.1); White Blood Count 9.98 K/uL (4.8-10.8)
[2018-07-28 06:02] LABS: INR 1.5 (0.9-1.1); Prothrombin Time 15.4 Seconds (9.0-12.0)
[2018-07-28 06:20] LABS: BUN Creatinine Ratio 11.9 (10-20); Calcium 8.4 mg/dl (8.5-10.1); Creatinine Clr Calc Pharmacy 91.8 ml/min; Est GFR (African American) 110.3; Est GFR (Non-African American) 95.2; Potassium 4.1 mmol/L (3.5-5.1)
[2018-07-28] MEDS: CARVEDILOL 3.125 MG TAB PO SCH ×2 (08:31→21:22)
[2018-07-28] MEDS: POTASSIUM CHLORIDE 10 MEQ TABCR PO SCH ×2 (08:31→21:22)
[2018-07-28] MEDS: ATORVASTATIN 10 MG TAB PO SCH (08:32)
[2018-07-28] MEDS: SPIRONOLACTONE 25 MG TAB PO SCH ×2 (08:32→17:06)
[2018-07-28] MEDS: PANTOprazole 40 MG TAB PO SCH (08:32)
--- NOTE | 2018-07-28 09:50 | Surgery Progress Note ---
Date of Service July 28, 2018 Assessment & Plan (1) Perirectal abscess: s/p 07/25/18 I&D perirectal abscess (horseshoe abscess) - Dressing changes BID and prn: likely needs more frequent changes given moisture in the area - Consider barrier cream but avoid placement it immediately adjacent to or on incisions - Continue Abx, awaiting final culture results - Colorectal eval as an outpatient given recurrence of perirectal abscess and likely fistula. - PT/OT - May be ready from surgical perspective for today, waiting to see if reaction to Omnicef given allergies - Recommend home health (unless being discharged to a SNF), will need frequent and diligent dressing changes - Follow up in gen surg clinic in 1 weeks [address] wound check[address] Dr. Villarreal has seen and examined pt, agrees with above Supervising Physician Co-Signing Physician Notes I have seen and evaluated the patient and reviewed the medical record. I agree with the documentation above as written by Vi Ferraro PA-C Subjective feeling okay not much perirectal pain, only pain when dressing changes or when examined tolerating diet Physical Exam Vital Signs (Past 24 Hours): Last Vital Signs Temp 36.9 C 07/28/18 08:00 Pulse 81 07/28/18 08:00 Resp 18 07/28/18 08:00 BP 115/64 07/28/18 08:00 Pulse Ox 95 07/28/18 08:00 Constitutional: WD/WN, vitals as above no acute distress and not ill appearing Respiratory: no respiratory distress Gastrointestinal (Abdomen): External rectal exam: Odor present but liquid stool present, erythema surrounding drains but induration improving, no fluctuance. Tender to palpation. Skin: no rashes, warm and dry Psychiatric: A+Ox3, euthymic affect Results & Data Laboratory Results 07/28/18 07/28/18 07/28/18 Range/Units 05:25 05:25 05:25 WBC 9.98 (4.8-10.8) K/uL RBC 3.64 L (4.7-6.1) M/uL Hgb 11.4 L (14.0-18.0) g/dL Hct 34.1 L (42-52) % MCV 93.7 (80-100) fL MCH 31.3 (25-34) pg MCHC 33.4 (32-36) g/dL RDW Std Deviation 47.3 H (36.4-46.3) fL RDW Coeff of Luci 13.8 (11.5-14.5) % Plt Count 278 (130-400) K/uL MPV 9.6 (7.4-10.4) fL Immature Gran % (Auto) 0.9 % Neut % (Auto) 76.0 % Lymph % (Auto) 10.5 % [place] % (Auto) 10.7 % Eos % (Auto) 1.8 % Baso % (Auto) 0.1 % Immature Gran # (Auto) 0.09 H (0.00-0.02) K/uL Neut # (Auto) 7.58 H (1.4-6.5) K/uL Lymph # (Auto) 1.05 L (1.2-3.4) K/uL [place] # (Auto) 1.07 H (0.11-0.59) K/uL Eos # (Auto) 0.18 (0-0.5) K/uL Baso # (Auto) 0.01 (0-0.2) K/uL PT 15.4 H (9.0-12.0) Seconds INR 1.5 H (0.9-1.1) Sodium 134 L (136-145) mmol/L Potassium 4.1 (3.5-5.1) mmol/L Chloride 98 (98-107) mmol/L Carbon Dioxide 30 (21-32) mmol/L Anion Gap 6.0 (3-11) BUN 8 (7-18) mg/dl Creatinine 0.65 (0.6-1.4) mg/dl Est Cr Clr Drug Dosing 91.8 ml/min Est GFR ( Amer) 110.3 Est GFR (Non-Af Amer) 95.2 BUN/Creatinine Ratio 11.9 (10-20) Glucose 103 H (70-99) mg/dl Calcium 8.4 L (8.5-10.1) mg/dl
--- NOTE | 2018-07-28 10:16 | Infectious Disease Progress Nt ---
Date of Service July 28, 2018 Assessment & Plan (1) Perianal abscess: discussed with primary, goal is to d/c on po abx. would suggest change to po omnicef (has keflex allergy) - first dose in hospital. If he tolerates, would give 3 weeks. If unable to tolerate, alternate po option is doxy. can restart zyvox for previous MSSA wound infection. Will plan to follow with Dr. Cota in wound center post d/c from hospital as previously scheduled. Subjective pt underwent I&D with drain placement, OR cultures growing pansensitive K. pneumo and proteus. Remains on IV imipenem, tolerating well. Has multiple abx allergies. was also on longstanding zyvox for leg wound, stopped over weekend. afebrile. blood cultures negative. wbc 9.9. Physical Exam Vital Signs (Past 24 Hours): Last Vital Signs Temp 36.9 C 07/28/18 08:00 Pulse 81 07/28/18 08:00 Resp 18 07/28/18 08:00 BP 115/64 07/28/18 08:00 Pulse Ox 95 07/28/18 08:00 Results & Data Laboratory Results Microbiology 07/25/18 17:01 Rectal Abscess Gram Stain - Final 07/25/18 17:01 Rectal Abscess Aerobic and Anaerobic Culture - Preliminary Klebsiella pneumoniae Proteus mirabilis 07/24/18 23:51 Blood Blood Culture - Preliminary No growth to date. 07/24/18 23:46 Blood Blood Culture - Preliminary No growth to date.
[2018-07-28] MEDS: CEFDINIR 300 MG CAP PO SCH ×2 (10:35→21:22)
[2018-07-28] MEDS ORDERED: BENZOCAINE 20% AER SPR 82.5 GM CAN EXT PRN (12:07)
--- NOTE | 2018-07-28 12:07 | Hospitalist Progress Note ---
Date of Service July 28, 2018 Assessment & Plan (1) Perirectal abscess: This patient is a 77 year old with past medical history of A Fib on chronic anticoagulation, Chronic Venous Insufficiency, PAD, Hypothyroidism, CAD, HTN, CVA, GERD presented with rectal pain, weakness, and chills. He was recently admitted here with fever several days ago in the setting of an upper respiratory infection. Blood cultures from that time remain negative CT of the abdomen/pelvis here confirms a horseshoe shaped perirectal abscess that is quite large. He had exquisite tenderness and purulent drainage from the rectum on physical examination. Now status post I&D of large amount of purulence in OR on 07/25, [place] drains left in place With leukocytosis which is now resolved, afebrile Wound cultures growing pansens Klebsiella pneumoniae and Proteus mirabilis Much improved now overall, still with pain and frequent stooling getting into the drain sites--> difficult/laborious for RNs to clean him -discussed this with family who is willing to clean him up at home -Appreciate general surgery consultation -have since restarted Coumadin -dc imipenem and convert to p.o. Omnicef x 3 weeks as per ID recommendations (has multipl eallergies including keflex but will watch for reaction) -Follow blood cultures -Pain control as needed -Surgery recommends f/u with Colorectal Surgery as an outpt given recurrent perirectal abscesses and fistula -will need home nursing to check on his wounds and drains -stable from Surgery standpoint for dc in the next next day (2) Ulcer of right lower extremity: Pt has a hx of venous stasis dermatitis with ulcers of the R. lower extremity. He follows with wound care for his ulcers and takes linezolid 600mg BID -restart linezolid today as per ID -Continue spironolactone 25mg p.o. twice daily for bilateral lower extremity edema (3) Venous insufficiency: continue tubigrip stockings (4) Afib: Rate controlled -Continue Coreg for rate control -Restarted Coumadin as above -Follow INR in the morning-down to 1.5 today Has been transitioned off telemetry (5) GERD (gastroesophageal reflux disease): -Continue PPI (6) PAD (peripheral artery disease): PAD (peripheral artery disease): - S/p arteriogram in Apr [address] Larsen. - Continue statin, not on aspirin likely due to being on warfarin (7) Hypothyroidism: TSH stable at 1.35, continue levothyroxine (8) CAD (coronary artery disease): - S/p stent placement in [address] [facility]. No evidence of acute coronary syndrome at this time (9) HTN (hypertension): Blood pressures controlled -Continue Coreg, spironolactone (10) Anticoagulant long-term use: On Coumadin for atrial fibrillation-was on hold for surgery, now res tarting (11) Elevated liver enzymes: Pt has slightly elevated AST, normal ALT, and elevated Alk phosphatase. All trended downward after admission CPK was ordered to rule out rhabdo-was normal at [address] Liver appears normal on CT scan -Could have been secondary to acute illness -Follow LFTs in AM (12) Hyponatremia: Na at 133 and now normalized with giving NS IVFs dc IVFs, now tolerating po well (13) Normocytic anemia: hgb is 11.4 MCV is normocytic. -iron studies consistent with anemia of chronic disease, B12/folate both normal Also has a history of mild thrombocytopenia which is resolved at this point -Follow CBC (14) Hydronephrosis: CT of the Abdomen/Pelvis showed bilateral hydronephrosis with enlarged bladder likely secondary to severe urinary retention greater than 1 L, palpable on exam Pt voided 400mL and bladder scan still showed 750mL in the bladder Pt has been straight cathed x 2 and then Jacob catheter placed on 07/26 -Jacob should remain in place for 7 to 10 days to allow bladder to decompress UA negative -started Flomax -Urology consulted (15) Urinary retention: As above under "hydronephrosis" (16) Gout attack: Likely acute gout attack in right knee and right foot--> pain came on acutely, has a h/o gout, exquisitely tender at both sites, no erythema Causing difficulty with ambulation -start prednisone 20mg daily x 5-7 day course (17) DVT prophylaxis: Coumadin, INR 1.5 Disposition-remain on medical floor PT/OT consults pending Family wants to bring home with 24/7 care and home health Possible dc in 1-2 days if gout attack improved Discussed his care with his son and decision maker on phone today Subjective Pt reports pain in his bottom is improved. RN reports 2 soft BMs so far today and with stool getting into his drains is quite difficult to clean, takes 30 min to get him cleaned up with each BM. Pt also started having significant right knee and right lateral plantar foot pain since yesterday. Pain worse with any palpation. He was barely able to walk across the room today secondary to pain. States he has a h/o gout I discussed the case with ID, Surgery, and Pharmacy today Review of Systems All systems reviewed & are unremarkable except as noted in HPI & below Physical Exam Vital Signs (Past 24 Hours): Last Vital Signs Temp 36.9 C 07/28/18 08:00 Pulse 81 07/28/18 08:00 Resp 18 07/28/18 08:00 BP 115/64 07/28/18 08:00 Pulse Ox 95 07/28/18 08:00 Constitutional: WD/WN, vitals as above Eyes: PERRL, conjunctivae normal, anicteric sclerae Neck: trachea midline, no thyromegaly Respiratory: normal respiratory effort, lungs clear to auscultation normal respiratory effort Cardiovascular: Rate/Rhythm: regular rate; + abnormal rhythm (Irregularly irregular) Heart Sounds: no murmur Extremities: no edema Gastrointestinal (Abdomen): Inspection/Auscultation: normal bowel sounds Percussion/Palpation: abdomen nontender Musculoskeletal: Extremities: no cyanosis and no clubbing Knee: + knee abnormal to inspection (right knee with mild-moderate effusion), + limited ROM of knee (0-90 degrees passive ROM), + joint line tenderness (+exquisite +TTP over right patella and right lateral plantar foot) and + valgus alignment; no skin erythema Skin: no rashes, warm and dry (chronic venous stasis changes) + ulcer (right medial distal leg with ulcer with dressing in place) Neurologic: moves all extremities and awake; no focal motor deficits Psychiatric: A+Ox3, euthymic affect Results & Data Laboratory Results 07/28/18 07/28/18 07/28/18 Range/Units 05:25 05:25 05:25 WBC 9.98 (4.8-10.8) K/uL RBC 3.64 L (4.7-6.1) M/uL Hgb 11.4 L (14.0-18.0) g/dL Hct 34.1 L (42-52) % MCV 93.7 (80-100) fL MCH 31.3 (25-34) pg MCHC 33.4 (32-36) g/dL RDW Std Deviation 47.3 H (36.4-46.3) fL RDW Coeff of Luci 13.8 (11.5-14.5) % Plt Count 278 (130-400) K/uL MPV 9.6 (7.4-10.4) fL Immature Gran % (Auto) 0.9 % Neut % (Auto) 76.0 % Lymph % (Auto) 10.5 % [place] % (Auto) 10.7 % Eos % (Auto) 1.8 % Baso % (Auto) 0.1 % Immature Gran # (Auto) 0.09 H (0.00-0.02) K/uL Neut # (Auto) 7.58 H (1.4-6.5) K/uL Lymph # (Auto) 1.05 L (1.2-3.4) K/uL [place] # (Auto) 1.07 H (0.11-0.59) K/uL Eos # (Auto) 0.18 (0-0.5) K/uL Baso # (Auto) 0.01 (0-0.2) K/uL PT 15.4 H (9.0-12.0) Seconds INR 1.5 H (0.9-1.1) Sodium 134 L (136-145) mmol/L Potassium 4.1 (3.5-5.1) mmol/L Chloride 98 (98-107) mmol/L Carbon Dioxide 30 (21-32) mmol/L Anion Gap 6.0 (3-11) BUN 8 (7-18) mg/dl Creatinine 0.65 (0.6-1.4) mg/dl Est Cr Clr Drug Dosing 91.8 ml/min Est GFR ( Amer) 110.3 Est GFR (Non-Af Amer) 95.2 BUN/Creatinine Ratio 11.9 (10-20) Glucose 103 H (70-99) mg/dl Calcium 8.4 L (8.5-10.1) mg/dl (1) Afib Atrial fibrillation type: chronic Qualified Code(s): I48.2 - Chronic atrial fibrillation (2) Hypothyroidism Hypothyroidism type: acquired Qualified Code(s): E03.9 - Hypothyroidism, unspecified (3) CAD (coronary artery disease) Associated angina: with stable angina Coronary Disease-Associated Artery/Lesion type: [place] artery [place] vs. transplanted heart: [place] heart Qualified Code(s): I25.118 - Atherosclerotic heart disease of [place] coronary artery with other forms of angina pectoris (4) HTN (hypertension) Hypertension type: unspecified Qualified Code(s): I10 - Essential (primary) hypertension
[2018-07-28] MEDS: LINEZOLID 600 MG TAB PO SCH ×2 (12:59→21:22)
[2018-07-28] MEDS: predniSONE 20 MG TAB PO SCH (12:59)
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
[2018-07-28] MEDS: WARFARIN SOD 4 MG TAB PO SCH (17:05)
[2018-07-28] MEDS: TAMSULOSIN HCL 0.4 MG CAP PO SCH (21:22)
[2018-07-29] MEDS: LEVOTHYROXINE SODIUM 88 MCG TABLET PO SCH (05:42)
[2018-07-29 06:16] LABS: Eosinophils # (auto) 0.03 K/uL (0-0.5); Eosinophils % (auto) 0.3 %; Hematocrit (blood only) 34.8 % (42-52); Hemoglobin 11.4 g/dL (14.0-18.0); Immature Granulocytes # (auto) 0.09 K/uL (0.00-0.02); Immature Granulocytes % (auto) 0.8 %; Lymphocytes # (auto) 1.26 K/uL (1.2-3.4); Lymphocytes % (auto) 11.3 %; Mean Corpuscular Hgb Conc 32.8 g/dL (32-36); Mean Corpuscular Volume 94.6 fL (80-100); Mean Platelet Volume 9.6 fL (7.4-10.4); Monocytes % (auto) 7.2 %; Neutrophils # (auto) 8.93 K/uL (1.4-6.5); Neutrophils % (auto) 80.4 %; Platelet Count 349 K/uL (130-400); RDW Coefficient of Variation 13.6 % (11.5-14.5); RDW Standard Deviation 47.1 fL (36.4-46.3); Red Blood Count 3.68 M/uL (4.7-6.1); White Blood Count 11.11 K/uL (4.8-10.8)
[2018-07-29 06:24] LABS: INR 1.6 (0.9-1.1)
[2018-07-29 06:45] LABS: Albumin Level 2.4 gm/dl (3.4-5.0); BUN Creatinine Ratio 18.2 (10-20); Bilirubin Direct 0.2 mg/dl (0-0.2); Calcium 8.8 mg/dl (8.5-10.1); Creatinine Clr Calc Pharmacy 90.4 ml/min; Est GFR (African American) 109.6; Est GFR (Non-African American) 94.6; Magnesium 2.1 mg/dl (1.8-2.4); Potassium 4.3 mmol/L (3.5-5.1)
[2018-07-29 06:48] LABS: Bilirubin,Total 0.4 mg/dl (0.2-1); Total Protein 7.1 gm/dl (6.4-8.2)
[2018-07-29] MEDS: ATORVASTATIN 10 MG TAB PO SCH (08:00)
[2018-07-29] MEDS: PANTOprazole 40 MG TAB PO SCH (08:00)
[2018-07-29] MEDS: CARVEDILOL 3.125 MG TAB PO SCH (08:01)
[2018-07-29] MEDS: POTASSIUM CHLORIDE 10 MEQ TABCR PO SCH (08:01)
[2018-07-29] MEDS: LINEZOLID 600 MG TAB PO SCH (08:01)
[2018-07-29] MEDS: predniSONE 20 MG TAB PO SCH (08:02)
[2018-07-29] MEDS: CEFDINIR 300 MG CAP PO SCH (08:02)
[2018-07-29] MEDS: SPIRONOLACTONE 25 MG TAB PO SCH ×2 (08:02→17:00)
[2018-07-29] MEDS: metroNIDAZOLE 500 MG TAB PO SCH ×2 (09:28→15:00)
--- NOTE | 2018-07-29 09:57 | Surgery Progress Note ---
Date of Service July 29, 2018 Assessment & Plan (1) Perirectal abscess: s/p 07/25/18 I&D perirectal abscess (horseshoe abscess) - Dressing changes BID and prn: likely needs more frequent changes given moisture in the area - Consider barrier cream but avoid placement it immediately adjacent to or on incisions - Continue Abx - Colorectal eval as an outpatient given recurrence of perirectal abscess and likely fistula. - PT/OT - May be ready from surgical perspective for today, did have slight increase in WBC - Recommend home health (unless being discharged to a SNF), will need frequent and diligent dressing changes - Follow up in gen surg clinic in 1 weeks for wound check. Subjective Pt does not seem to have any complaints. Having BM at initial time of visit. Reports that there is difficulty keeping wound clean due to fecal incontinence. Pt voices he hopes to be discharged soon. Slight increase in WBC today. Physical Exam Vital Signs (Past 24 Hours): Last Vital Signs Temp 36.6 C 07/29/18 07:56 Pulse 66 07/29/18 07:56 Resp 18 07/29/18 07:56 BP 113/69 07/29/18 07:56 Pulse Ox 95 07/29/18 07:56 Constitutional: no acute distress Respiratory: normal respiratory effort Cardiovascular: Rate/Rhythm: regular rate Results & Data Laboratory Results 07/29/18 07/29/18 07/29/18 Range/Units 05:27 05:27 05:27 WBC 11.11 H (4.8-10.8) K/uL RBC 3.68 L (4.7-6.1) M/uL Hgb 11.4 L (14.0-18.0) g/dL Hct 34.8 L (42-52) % MCV 94.6 (80-100) fL MCH 31.0 (25-34) pg MCHC 32.8 (32-36) g/dL RDW Std Deviation 47.1 H (36.4-46.3) fL RDW Coeff of Luci 13.6 (11.5-14.5) % Plt Count 349 (130-400) K/uL MPV 9.6 (7.4-10.4) fL Immature Gran % (Auto) 0.8 % Neut % (Auto) 80.4 % Lymph % (Auto) 11.3 % [place] % (Auto) 7.2 % Eos % (Auto) 0.3 % Baso % (Auto) 0.0 % Immature Gran # (Auto) 0.09 H (0.00-0.02) K/uL Neut # (Auto) 8.93 H (1.4-6.5) K/uL Lymph # (Auto) 1.26 (1.2-3.4) K/uL [place] # (Auto) 0.80 H (0.11-0.59) K/uL Eos # (Auto) 0.03 (0-0.5) K/uL Baso # (Auto) 0.00 (0-0.2) K/uL PT 16.0 H (9.0-12.0) Seconds INR 1.6 H (0.9-1.1) Sodium 134 L (136-145) mmol/L Potassium 4.3 (3.5-5.1) mmol/L Chloride 101 (98-107) mmol/L Carbon Dioxide 29 (21-32) mmol/L Anion Gap 4.0 (3-11) BUN 12 (7-18) mg/dl Creatinine 0.66 (0.6-1.4) mg/dl Est Cr Clr Drug Dosing 90.4 ml/min Est GFR ( Amer) 109.6 Est GFR (Non-Af Amer) 94.6 BUN/Creatinine Ratio 18.2 (10-20) Glucose 114 H (70-99) mg/dl Calcium 8.8 (8.5-10.1) mg/dl Magnesium 2.1 (1.8-2.4) mg/dl Total Bilirubin 0.4 (0.2-1) mg/dl Direct Bilirubin 0.2 (0-0.2) mg/dl AST 30 (15-37) U/L ALT 36 (12-78) U/L Alkaline Phosphatase 90 (45-117) U/L Total Protein 7.1 (6.4-8.2) gm/dl Albumin 2.4 L (3.4-5.0) gm/dl
[2018-07-29] MEDS: WARFARIN SOD 4 MG TAB PO SCH (15:00)
--- NOTE | 2018-07-29 20:15 | Discharge Summary ---
Date of Service date of admission - July 24, 2018 date of discharge - July 29, 2018 Admission HPI Per Admitting Provider 77 year old male with past medical history of A Fib on chronic anticoagulation, Chronic Venous Insufficiency, Peripheral arterial disease, Hypothyroidism, Coronary Artery Disease, Hypertension, CVA, and GERD who presented to the ER with concern of jeanne-rectal ulcers for the past week. Per son, pt has not been acting like himself. He has had associated abdominal pain and nausea. Patient has been avoiding eating due to concern for discomfort with bowel movements. Last BM was 2 days ago per patient and "had some blood on the edge." The BM was soft but painful. No fevers/chills, sob, chest pain, vomiting, dysuria/hematuria. Principal Diagnosis jeanne-rectal abscess s/p I & D Discharge Exam Constitutional well developed, well nourished and average body habitus; no acute distress and not ill appearing ENMT external ear and nose normal, oropharynx normal Respiratory normal respiratory effort, lungs clear to auscultation Cardiovascular Rate/Rhythm: regular rate; + abnormal rhythm (irregular) Heart Sounds: normal S1 and normal S2 Vessels: posterior tibial pulses present and dorsalis pedis pulses present; no JVD Extremities: + pedal edema (trace) Gastrointestinal (Abdomen) normal bowel sounds, soft, nontender, no hepatosplenomegaly Musculoskeletal mild joint effusion right knee with OA changes but NO erythema or warmth; no synovitis of b/l first MTP joints; no tenderness Skin right medial malleolus of foot - 1-2cm ulcer, shallow, mild drainage but no odor or surrounding cellulitis Psychiatric A+Ox3, euthymic affect Genitourinary harris in place Discharge Data Allergies Allergy/AdvReac Type Severity Reaction Status Date / Time amoxicillin Allergy Intermediate RASH, Verified 07/25/18 00:02 ITCHING cephalexin Allergy Intermediate RASH,ITCHIN Verified 07/25/18 00:02 G Cipro Allergy Intermediate RASH Verified 06/22/17 15:22 ciprofloxacin Allergy Intermediate RASH Verified 07/25/18 00:02 clavulanic acid Allergy Intermediate RASH, Verified 07/25/18 00:02 ITCHING Penicillins Allergy Intermediate AUGMENTIN-R Verified 07/25/18 00:02 KITTY,ITCHING morphine Allergy Mild RASH Verified 07/25/18 00:02 sulfamethoxazole Allergy Mild Rash Verified 07/25/18 00:02 [From Bactrim] trimethoprim [From Bactrim] Allergy Mild Rash Verified 07/25/18 00:02 Consultations 1. general surgery - Michelle Bailey MD 2. infectious disease - Ewelina Vargas DO 3. urology - Missy DIAS 4. PT, OT Procedures Performed Incision and Drainage Perirectal Abscess(Not Applicable) - Michelle Villarreal MD Ordered Studies CT abd/pelvis - IMPRESSION: 1. Complex horseshoe-shaped rim-enhancing perianal fluid collection consistent with a perianal abscess that measures 4.9 cm in transverse dimension and 4.7 cm in AP dimension. Associated fistula extends to the right gluteal fold. Probable intramural component within the left inferior rectal wall with possible supralevator component. 2. Mild bilateral hydroureteronephrosis likely due to significant distention of the bladder. 3. Moderate cardiomegaly. Extensive coronary artery calcification. Hospital Course (1) Perirectal abscess: Initially on broad-spectrum IV antibiotics. Underwent I/D of the abscess by Dr. Michelle Villarreal with placement of multiple Lui Drains. Intra-op cultures grew Klebsiella pneumoniae, Proteus mirabilis, and bacteroides. Blood cultures were negative while hospitalized. Prior to discharge he was transitioned to oral omnicef and flagyl. He will receive 3 weeks of such after discharge. Surgery recommends f/u with Colorectal Surgery as an outpatient given recurrent perirectal abscesses and suspected fistula (had abscess ~2 years ago). He will need to keep the jeanne-rectal area as clean as possible. Home health was set up for him to assist with such. (2) Ulcer of right lower extremity: Recently placed on linezolid 600mg BID for distal RLE ulcer that grew MSSA. The ulcer was stable while here. He [facility]. (3) Venous insufficiency: Tubigrip stockings should be continued after discharge. (4) Afib: He will continue coreg and coumadin. INR at discharge was 1.6. He was asked to check his INR 3 days after discharge (he has a home INR machine and calls values to Dr. Toro Vasquez in [place]) in light of antibiotic usage. (5) GERD (gastroesophageal reflux disease): PPI (6) PAD (peripheral artery disease): S/p arteriogram in Apr [address] Chip Larsen. He remains on statin therapy. (7) Hypothyroidism: TSH stable at 1.35, continue levothyroxine. (8) CAD (coronary artery disease): No ischemic symptoms while hospitalized. (9) HTN (hypertension): Acceptable control while here with Coreg and spironolactone. (10) Elevated liver enzymes: Mildly elevated LFTs at admission which normalized quickly while here. (11) Hyponatremia: Na at 133 at admission. Improved to normal during the stay. (12) Normocytic anemia: iron studies consistent with anemia of chronic disease. B12/folate both normal. discharge hemoglobin was 11.4 -- about his baseline. (13) Hydronephrosis: CT of the Abdomen/Pelvis showed bilateral hydronephrosis with enlarged bladder likely secondary to severe urinary retention. Patient required straight cath x 2 and then ultimately Harris catheter placement on 07/26/2018. urology was consulted. flomax initiated. patient to d/c home with harris in place. will remain for at least 7-10 days. spontaneous voiding trial will be conducted in the urology office. (14) Urinary retention: see "hydronephrosis". likely due to BPH. (15) Gout attack: Right knee and right foot podagra -- rapidly improved with low-dose prednisone. Plan -- prednisone 20mg daily x 5 days post-discharge. (16) Ambulatory dysfunction: Seen by PT/OT. Both recommended rehab. Patient adamantly refused. He will return home with home PT/OT. He lives with his son and other family members who will continue to assist him with post-discharge care (jeanne-rectal region, wounds right leg, harris, etc). Total Time Total Time Spent Total Time Spent (In Minutes): 45 Total Time Includes: Examination of the Patient, Discharge Planning, Medication Reconciliation and 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 With Other Providers Discharge Plan Discharge Items Patient Disposition: Home - Home Health Services Reason For Visit: JEANNE-RECTAL ABSCESS Discharge Diagnosis: Jeanne-rectal abscess requiring incision & drainage by surgery. Urinary retention requiring placement of harris catheter. Discharge Goals: Decrease discomfort, Diagnostic testing and Therapeutic intervention Activity: Resume your previous activity Bathing Comment: OK to shower but NO TUB BATHS Non-emergency contact: Primary Care Provider and Surgeon Call non-emergency contact if: you have any medication questions, your symptoms worsen, your pain is not controlled, your pain is worsening, your pain is unusual for you, your pain is concerning for you, your temperature is above 100.5, your wound has increased redness, your wound has increased drainage and your wound pain has increased Follow-up/Referrals: [facility] [Provider Group] (Please, follow up at [facility] Urology Office regarding the harris catheter removal. *A nurse from this office will call you regarding the appointment details. *This office is located at [address] [facility] [address] in [place]. If you need to change this appointment, call the office at [phone].) Evans Magaña [Primary Care Provider] - 08/05/18 3:30 pm (Please, follow up at Dr. Magaña's office in [place] on SaturdayAugust 05 at 3:30 pm. *If you need to change this appointment, call the office at [phone].) Michelle Villarreal MD [Physician] - 08/04/18 1:30 pm (Please, follow up with Dr. Michelle Villarreal (surgeon) on SaturdayAugust 04 at 1:30 pm. *This office is located at [address] [place] [address] in [place]. This is the [facility]. If you have any questions, call the office at [phone].) Diet: Heart Healthy Diet Texture: Dental soft (bite-sized) Addtl Provider Instructions: Additional instructions from general surgery regarding your perirectal abscess: - Change dressing daily and as needed. Dressing should be changed with each bowel movement and whenever it is dirty. - Follow up in the general surgery clinic in 1 week. See separate section for appt information. - You should also see a Colorectal Surgeon who specializes in your condition since you have had multiple abscesses in this location. You will likely have to go to [facility], [place], or [facility] in [place] for this. Your family doctor can refer you to a colorectal surgeon. Other instructions from Lester Galindo - hospitalist - 1. antibiotics for your perirectal abscess - * cefdinir 300mg twice daily x 21 days * metronidazole 500mg three times daily x 21 days * do NOT drink alcohol while taking antibiotics * saccharomyces daily x 21 days (to prevent diarrhea from your antibiotics) 2. INR - your INR (Coumadin level) on 07/29/18 was 1.6. Please have your coumadin provider recheck your INR on August 01 to give you additional guidance on your coumadin. 3. Harris catheter - leave in place until you are seen by [facility] in [place]. Drain the harris bag as neede when it is full. 4. For enlarged prostate - take tamsulosin 0.4mg each night at bedtime. This medication can sometimes cause dizziness -- if you experience this side effect please stop the medication and let your family doctor or your urologist know. 5. For recent gout attack - take prednisone 20mg once daily for 5 days. Start this TOMORROW on 07/30/18. 6. Continue dressing changes to your legs as previous. 7. Continue the linezolid antibiotic twice daily as previously prescribed by Dr. Cota. 8. Follow-up - see separate section. 9. Return to [facility] if - * you have recurrent fevers of 100.5 degrees or more * you have worsening gout pain or difficulty walking because of your joint pains * you develop severe diarrhea * you have worsening rectal pain, drainage, swelling, etc. * any other concerns Prescriptions: New prednisone 20 mg Tablet 20 mg PO QAM 5 Days Qty: 5 RF: 0 metronidazole 500 mg Tablet 500 mg PO TID 21 Days Qty: 63 RF: 0 tamsulosin 0.4 mg Capsule 0.4 mg PO HS Qty: 30 RF: 2 cefdinir 300 mg Capsule 300 mg PO Q12 21 Days Qty: 42 RF: 0 Saccharomyces boulardii 250 mg capsule 250 mg PO DAILY 21 Days Qty: 21 RF: 0 Continued atorvastatin 10 mg tablet 10 mg PO DAILY RF: 0 carvedilol [Coreg] 3.125 mg tablet 3.125 mg PO BID RF: 0 docusate sodium 100 mg capsule 100 mg PO BID PRN (Reason: constipation) RF: 0 levothyroxine 88 mcg capsule 88 mcg PO QAM RF: 0 potassium chloride [Klor-Con 8] 8 mEq tablet extended release 8 meq PO BID RF: 0 spironolactone 25 mg tablet 25 mg PO BID RF: 0 linezolid [Zyvox] 600 mg tablet 600 mg PO BID RF: 0 acetaminophen [Tylenol Extra Strength] 500 mg Tablet 1,000 mg PO BID RF: 0 pantoprazole 40 mg tablet,delayed release (DR/EC) 40 mg PO QAM RF: 0 warfarin [Coumadin] 4 mg Tablet 4 mg PO Q OTHER DAY RF: 0 warfarin [Coumadin] 2 mg Tablet 2 mg PO Q OTHER DAY RF: 0 Stand-Alone Forms: [facility] Discharge Orders: Discharge Order (Routine); Ordered 07/29/18 Ordered By: Lester Galindo Admission Data Admit Date/Time: 07/25/18 04:14 Attending Provider: Lester Galindo Admit Provider: Riki Zazueta Primary Care Provider: Evans Magaña Other Providers: Riki Zazueta ; Bill Cota ; Michelle Villareral ; Jp Amos Service: Telemetry Medical Other Interventions: Discharge Summary Assessment (RN) Last Done: 07/29/18 17:09 Pending Studies at Discharge: No DC Date/Time DO NOT enter until pt leaves facility: 07/29/18 17:36
--- NOTE | 2018-07-31 16:17 | Anesthesiology Progress Note ---
Date of Service July 31, 2018 Anesthesia Post Procedure Pain Intensity Posterior Buttock: Pain Intensity: 6 Rectal: Pain Intensity: 2 Notes Mental Status: alert / awake / arousable Patient Amnestic to Procedure: Yes Nausea / Vomiting: adequately controlled Pain: adequately controlled Airway Patency, RR, SpO2: stable & adequate BP & HR: stable & adequate Hydration State: stable & adequate Anesthetic Complications: no major complications apparent
== END 2018-07-29 17:36 | disposition home health service (06) | DRG 330 ==
LOC: ED 22:55 → SUATTDRO 07-25 04:14 → 2N 07-25 04:14

== ENCOUNTER 2018-11-27 22:54 | Inpatient (IN) ==
[2018-11-27] MEDS ORDERED: SODIUM CHLORIDE 0.9% 1000ML 1,000 ML IV SCH (23:30)
[2018-11-28 00:09] LABS: Basophils # (auto) 0.01 K/uL (0-0.2); Basophils % (auto) 0.1 %; Eosinophils # (auto) 0.07 K/uL (0-0.5); Eosinophils % (auto) 0.6 %; Hematocrit (blood only) 35.8 % (42-52); Hemoglobin 12.3 g/dL (14.0-18.0); Immature Granulocytes # (auto) 0.06 K/uL (0.00-0.02); Immature Granulocytes % (auto) 0.5 %; Lymphocytes # (auto) 0.92 K/uL (1.2-3.4); Lymphocytes % (auto) 8.1 %; Mean Corpuscular Hgb Conc 34.4 g/dL (32-36); Mean Corpuscular Volume 89.7 fL (80-100); Mean Platelet Volume 9.4 fL (7.4-10.4); Monocytes # (auto) 1.39 K/uL (0.11-0.59); Monocytes % (auto) 12.2 %; Neutrophils # (auto) 8.93 K/uL (1.4-6.5); Neutrophils % (auto) 78.5 %; Platelet Count 280 K/uL (130-400); RDW Coefficient of Variation 13.7 % (11.5-14.5); RDW Standard Deviation 45.4 fL (36.4-46.3); Red Blood Count 3.99 M/uL (4.7-6.1); White Blood Count 11.38 K/uL (4.8-10.8)
[2018-11-28 00:09] LABS: iSTAT Creatinine 0.7 mg/dl (0.6-1.3); iSTAT Hemoglobin 13.9 g/dl (14.0-18.0); iSTAT Ionized Calcium 1.09 mmol/l (1.12-1.32); iSTAT Potassium 3.6 mEq/L (3.3-5.0)
[2018-11-28] MEDS ORDERED: POTASSIUM CHLORIDE 20 MEQ TABCR PO STA (00:16)
[2018-11-28 00:17] LABS: INR 3.2 (0.9-1.1); Prothrombin Time 30.6 Seconds (9.0-12.0)
[2018-11-28 00:31] LABS: Alanine Aminotransferase 74 U/L (12-78); Albumin Level 2.5 gm/dl (3.4-5.0); Aspartate Aminotransferase 37 U/L (15-37); BUN Creatinine Ratio 19.1 (10-20); Blood Urea Nitrogen 16 mg/dl (7-18); Calcium 8.8 mg/dl (8.5-10.1); Carbon Dioxide 27 mmol/L (21-32); Chloride 85 mmol/L (98-107); Creatinine Clr Calc Pharmacy 69.9 ml/min; Est GFR (African American) 98.6; Est GFR (Non-African American) 85.1; Glucose 126 mg/dl (70-99); Potassium 3.5 mmol/L (3.5-5.1); Sodium 121 mmol/L (136-145)
[2018-11-28] MEDS ORDERED: IOVERSOL 100ml IV PRN (00:40)
[2018-11-28 00:41] LABS: Albumin Globulin Ratio 0.5 (0.9-2); Alkaline Phosphatase 117 U/L (45-117); Bilirubin,Total 0.5 mg/dl (0.2-1); Creatine Kinase 29 U/L (39-308); Globulin 4.9 gm/dl (2.5-4.0); Total Protein 7.4 gm/dl (6.4-8.2); Troponin I < 0.015 ng/ml (0-0.045)
[2018-11-28 00:45] LABS: Appearance Urine Clear (Clear); Bacteria Urine Automated Negative (Negative); Bilirubin Urine Negative (Negative); Blood Urine Negative (Negative); Color Urine Yellow; Epithelial Cell Urine Auto >30 /lpf (0-5); Glucose Urine UA Negative (Negative); Ketones Urine Negative (Negative); Leukocyte Esterase Urine 1+ (Negative); Nitrite Urine Negative (Negative); Protein Urine Trace (Negative); RBC Urine Automated 0-4 /hpf (0-4); Specific Gravity Urine 1.015 (1.000-1.030); Urobilinogen Urine Negative (Negative); pH Urine 5.5 (4.5-7.5)
[2018-11-28 01:14] LABS: Mucus Urine Present (None Prsent)
[2018-11-28] MEDS ORDERED: LEVOFLOXACIN/D5W 750 MG/150 ML BAG IV STA (01:25)
[2018-11-28] MEDS ORDERED: DAPTOmycin 400 MG in SYRINGE 0 ML IV ONE (01:25)
[2018-11-28] MEDS ORDERED: ACETAMINOPHEN 325 MG TAB PO PRN (04:06)
[2018-11-28] MEDS ORDERED: NITROGLYCERIN SL 0.4 MG/TAB TAB SL PRN (04:06)
[2018-11-28] MEDS ORDERED: ONDANSETRON INJ 2 MG/ML 2 ML VIAL IV PRN ×2 (04:06→15:07)
[2018-11-28] MEDS ORDERED: DAPTOMYCIN CONSULT ACTIVE PRN (04:14)
[2018-11-28] MEDS ORDERED: ERTAPENEM CONSULT ACTIVE PRN (04:15)
[2018-11-28] MEDS ORDERED: ERTAPENEM SODIUM 1,000 MG in SODIUM CHLORIDE 0.9% 50 ML IV SCH (04:30)
[2018-11-28 05:56] LABS: Basophils # (auto) 0.01 K/uL (0-0.2); Basophils % (auto) 0.1 %; Eosinophils # (auto) 0.09 K/uL (0-0.5); Hematocrit (blood only) 31.6 % (42-52); Hemoglobin 10.5 g/dL (14.0-18.0); Immature Granulocytes # (auto) 0.04 K/uL (0.00-0.02); Immature Granulocytes % (auto) 0.5 %; Lymphocytes # (auto) 0.97 K/uL (1.2-3.4); Lymphocytes % (auto) 11.1 %; Mean Corpuscular Hgb Conc 33.2 g/dL (32-36); Mean Corpuscular Volume 88.5 fL (80-100); Mean Platelet Volume 9.4 fL (7.4-10.4); Monocytes # (auto) 0.97 K/uL (0.11-0.59); Monocytes % (auto) 11.1 %; Neutrophils # (auto) 6.62 K/uL (1.4-6.5); Neutrophils % (auto) 76.2 %; Platelet Count 238 K/uL (130-400); RDW Coefficient of Variation 13.8 % (11.5-14.5); RDW Standard Deviation 44.7 fL (36.4-46.3); Red Blood Count 3.57 M/uL (4.7-6.1)
[2018-11-28 06:33] LABS: BUN Creatinine Ratio 20.1 (10-20); Calcium 8.1 mg/dl (8.5-10.1); Creatinine Clr Calc Pharmacy 101.3 ml/min; Est GFR (African American) 114.8; Magnesium 1.8 mg/dl (1.8-2.4); Potassium 3.6 mmol/L (3.5-5.1)
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
--- NOTE | 2018-11-28 07:04 | CT Scan Report ---
HEAD CT NONCONTRAST CT DOSE: 537.48 mGy.cm HISTORY: Altered mental status. TECHNIQUE: Multiaxial CT images of the head were performed without the use of intravenous contrast. A utomated exposure control was utilized for this study. A dose lowering technique was utilized adheri ng to the principles of ALARA. Comparison: Head CT 11/19/2018. Findings: The paranasal sinuses and mastoid air cells are clear. The calvarium and skull base are int act. There is no mass, hematoma, midline shift, acute infarct. White matter hypodensity is nonspecifi c but suggestive of microvascular ischemic change. The ventricles and sulci demonstrate mild age-rela bhupinder involutional changes. Impression: No acute intracranial abnormality. Atrophy and microvascular ischemic changes. Electronically signed by: Rudy Cheatham M.D. 11/28/2018 7:03 AM
[2018-11-28] MEDS ORDERED: D5W AND NSS 1,000 ML IV SCH (07:15)
--- NOTE | 2018-11-28 07:17 | XRay Report ---
XR chest 1V portable CLINICAL HISTORY: weakness COMPARISON STUDY: Chest radiograph November 04, 2018. FINDINGS: Lung volumes are normal. Lungs are clear. There is no pneumothorax or pleural effusion. Car diac size is stable. Mediastinal contours are normal. There is no evidence for pulmonary edema. IMPRESSION: No acute cardiopulmonary findings. Electronically signed by: Yao Velez M.D. 11/28/2018 7:16 AM
[2018-11-28 07:19] LABS: INR 3.1 (0.9-1.1); Prothrombin Time 29.2 Seconds (9.0-12.0)
--- NOTE | 2018-11-28 07:46 | CT Scan Report ---
ABDOMEN AND PELVIS CT WITH IV CONTRAST CT DOSE: 476.03 mGy.cm HISTORY: Acute generalized abdominal pain Pt c/o abd pain TECHNIQUE: Multiaxial CT images of the abdomen and pelvis were performed following the use of intrave nous contrast. A dose lowering technique was utilized adhering to the principles of ALARA. COMPARISON STUDY: CT abdomen and pelvis 11/04/2018 FINDINGS: Dependent subsegmental bibasilar opacities suggest probable atelectasis. Resolution of the previously described colonic pneumatosis with associated pneumoperitoneum. Study is motion degraded. Study is a lso limited secondary to positioning of the patient's upper extremities. Cardiomegaly. Coronary arter ial calcifications. Contracted gallbladder with wall thickening. Liver, spleen, pancreas and adrenal glands appear unrema rkable. Mild cortical scarring with parenchymal thinning about the superior pole kidneys bilaterally. No renal or ureteral calculi or obstructive uropathy. Urinary bladder wall thickening and trabeculat ion with Jacob catheter in place. Extensive mixed plaque formation about the abdominal aorta and bran ch vessels. No aneurysm or dissection identified. No adenopathy by CT size criteria. No bowel obstruc tion or bowel wall thickening. Mild gaseous distention of the colon, notably the transverse segment. Normal appendix. No ascites or mesenteric inflammation. There is a use shaped lobular peripherally en hancing perianal fluid collection which encompasses the posterior and bilateral lateral distributions of the anus measuring up to 4.4 x 5.6 x 4.4 cm. There is extension of the fluid collection to the bi lateral ischial anal fossa distributions, left greater than right with suggestion of fistulous tracts extending towards the skin surface. No extension above the levator ani musculature. No intrapelvic e xtension. Soft tissues are within normal limits. Degenerative changes of the spine, pelvis and hips. No acute fracture. Severe degenerative changes with chronic remodeling of the left hip. Avascular nec rosis of the right femoral head without articular collapse. IMPRESSION: 1. 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 No extension above the levator ani musculature or into the pelvis. 2. No bowel obstruction or bowel wall thickening. 3. Resolution of the recently described pneumatosis colli and pneumoperitoneum. 4. 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 5. Additional findings as above. Electronically signed by: Nolberto Mohan M.D. 11/28/2018 7:45 AM
[2018-11-28] MEDS ORDERED: DAPTOmycin 500 MG VIAL IV SCH (09:00)
[2018-11-28 09:15] LABS: BUN Creatinine Ratio 18.1 (10-20); Calcium 8.4 mg/dl (8.5-10.1); Creatinine Clr Calc Pharmacy 103.1 ml/min; Est GFR (African American) 115.6; Est GFR (Non-African American) 99.7; Potassium 3.7 mmol/L (3.5-5.1)
[2018-11-28 09:16] LABS: Phosphorus 3.2 mg/dl (2.5-4.9)
[2018-11-28] MEDS: DESMOPRESSIN ACETATE 2 MCG in SODIUM CHLORIDE 0.9% 50 ML IV SCH ×3 (09:35→23:53)
[2018-11-28] MEDS ORDERED: DEXTROSE 5% 1,000 ML IV SCH (09:45)
[2018-11-28] MEDS ORDERED: PHYTONADIONE 5 MG in SODIUM CHLORIDE 0.9% 50 ML IV ONE (10:40)
[2018-11-28] MEDS ORDERED: PROTHROMBIN COMP CONC- KCENTRA 1,500 UNITS in SYRINGE 0 ML IV SCH (10:45)
--- NOTE | 2018-11-28 11:00 | History and Physical Report ---
DATE OF ADMISSION: 11/28/2018 CHIEF COMPLAINT: Unable to void and confusion. 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 diff infection, history of traumatic brain injury, presents with unable to void and confusion. In October, he was transferred to [place] from [facility] because of pneumocystosis coli and UTI, possible ischemic bowel. The patient was discharged from [place] on November 12 to [facility], he was treated with antibiotics for a total of 7 days for UTI. He also had painful right knee for which Rheumatology was consulted. It was aspirated and was found to have pseudogout, he was placed on colchicine. The patient got discharged from [facility] to home yesterday to his son's house. As per the son, the patient is not ambulating, since last one months, he is needing assistance for ambulation. After coming home, the patient's appetite down. From morning 8 a.m.,yesterday he has not voided, he is also getting confused so that is why the son brought him to the hospital. In the hospital, he was found to have sodium of 121, received 1 liter of fluids so far and also his imaging studies official readings are pending, but shows recurrent rectal abscesses. . He received Levaquin and daptomycin in the ER. UA is also positive. The patient is currently resting comfortably and hemodynamically stable, could tell his name. He has some neck pain. He knows that he is in the hospital, not oriented to time, but he is mumbling the words. I could not get complete history from the patient. He Denies any chest pain. Denies shortness of breath. Denies nausea, denies abdominal pain. ALLERGIES: AMOXICILLIN, CEPHALEXIN, CIPRO, CLAVULANIC ACID, PENICILLIN, MORPHINE, SULFAMETHOXAZOLE, BACTRIM. PAST MEDICAL HISTORY: As mentioned above. PAST SURGICAL HISTORY: History of cataract surgery, colon resection and cardiac stent placement. FAMILY HISTORY: Significant for cancer, diabetes, gallbladder disease, heart disease, kidney disease, kidney stones and lung disease. SOCIAL HISTORY: Nonsmoker, no alcohol use, no drug use. Currently lives with his son. MEDICATIONS: The patient is on atorvastatin 10 mg p.o. daily, Coreg 3.125 mg p.o. b.i.d., colchicine 0.6 mg p.o. b.i.d., levothyroxine 88 mcg p.o. daily, Protonix 40 mg p.o. daily, spironolactone 25 mg p.o. daily, tamsulosin 0.4 mg p.o. at bedtime, warfarin 4 mg as directed. REVIEW OF SYMPTOMS: Complete review of systems is unobtainable. PHYSICAL EXAMINATION: GENERAL: The patient is old and frail, not in acute distress, but confused. VITAL SIGNS: Temperature 36.6, pulse 109, respiratory rate 14, blood pressure 100/72, oxygen 98% on room air. HEENT: No pallor, no icterus. Pupils equal, round, and reactive to light. NECK: No JVD, no neck masses, no carotid bruits. CARDIOVASCULAR: S1, S2 heard, regular rate and rhythm. No murmur, no gallop. RESPIRATORY SYSTEM: Normal AP diameter. No accessory muscle use. No wheezing, no crackles. ABDOMEN: Soft, bowel sounds present, nontender. No distention. CENTRAL NERVOUS SYSTEM: Alert and oriented to name and place. Moves extremities. Somewhat confused. EXTREMITIES: No edema, chronic skin changes seen, chronic venous stasis seen. Right lower extremity is somewhat swollen. LABORATORY DATA: WBC 11, hemoglobin 12.3, hematocrit 35.8, platelets 280. PT 30.6, INR 3.2. Sodium 121, potassium 3.5, chloride 85, CO2 of 27, BUN 16, creatinine 0.8, serum glucose 126, calcium 8.8, total bilirubin 0.5, AST 37, ALT 74, alkaline phosphatase 117. Troponin I less than 0.015. TSH 3.8. Urinalysis, positive for leukocyte esterase. Digoxin 0.2. Chest x-ray: No acute disease in the chest. CT of the head and CT of the abdomen and pelvis, official reading pending. EKG: Poor quality, atrial fibrillation with rate of 101, no acute ST changes seen. ASSESSMENT AND PLAN: This is a 78-year-old male who recently had pneumocystis coli and urinary tract infection, and transferred to [place]. He also found to have pseudogout in his right knee. He completed a 1 week of antibiotic course, sent to rehab, discharged home yesterday comes back with confusion and unable to void. 1. Confusion, metabolic encephalopathy, most likely secondary to hyponatremia, sodium of 121. and infection. Starting on antibiotics. received fluids. We will follow the labs, closely monitor in tele floor. 2. Hyponatremia. Sodium of 121. We will hold his spironolactone, received a liter of fluid in the ER. We will check urine osmolality, serum osmolality. Follow the BMP in q. 4 hours. Follow closely lab work and consult nephrology for further recommendations. Closely monitor in the tele floor. If the patient develops any symptoms, we will transfer to ICU for possible hypertonic saline. 3. Urinary tract infection. . We will follow the cultures.Starting on iv Invanz and daptomycin. 4. 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 Will follow official ct scan reading.We will consult surgery, keep him n.p.o., IV antibiotics, IV Invanz and IV daptomycin. Consult ID. 5. Atrial fibrillation, rate under control with Coreg, on Coumadin, INR 3.2. We will hold the Coumadin for any procedures. 6. BPH We will continue Flomax.Bladder scan frequently and monitor for retention. 6. Hypothyroidism. Continue Synthroid. 7. Gastroesophageal reflux disease. Continue Protonix. 8. Hyperlipidemia. Hold statin while on daptomycin. 9. Right lower extremity edema. Will c heck doppler. 10 Deep venous thrombosis prophylaxis. INR 3.2. DISPOSITION: Admit to tele floor. PT and OT prior to discharge. Social Service to help with discharge planning. Code status DNR as per my discussion with the son. [place]
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
[2018-11-28] MEDS: PANTOprazole 40 MG TAB PO SCH (13:43)
[2018-11-28] MEDS: CARVEDILOL 3.125 MG TAB PO SCH ×2 (13:43→20:45)
[2018-11-28] MEDS: COLCHICINE 0.6 MG TAB PO SCH ×2 (13:43→20:45)
[2018-11-28] MEDS: LEVOTHYROXINE SODIUM 88 MCG TABLET PO SCH (13:43)
[2018-11-28 13:59] LABS: INR 1.4 (0.9-1.1); Prothrombin Time 14.1 Seconds (9.0-12.0)
[2018-11-28 14:10] LABS: BUN Creatinine Ratio 13.5 (10-20); Calcium 8.3 mg/dl (8.5-10.1); Creatinine Clr Calc Pharmacy 108.8 ml/min; Est GFR (African American) 118.2; Potassium 3.5 mmol/L (3.5-5.1)
[2018-11-28] MEDS ORDERED: MIDAZOLAM HCL 1 MG/ML 2ML VIAL ONE (14:22)
[2018-11-28] MEDS ORDERED: fentaNYL citrate 100 MCG/2 ML VIAL ONE ×2 (14:22→15:48)
[2018-11-28] MEDS ORDERED: LIDOCAINE HCL 2% 2 ML VIAL/AMP(20MG/ML) INFIL ONE (14:22)
[2018-11-28] MEDS ORDERED: PROPOFOL IV EMULSION 10 MG/ML 20 ML VIAL IV ONE (14:22)
[2018-11-28] MEDS ORDERED: LEVOFLOXACIN CONSULT ACTIVE PRN (14:35)
[2018-11-28] MEDS ORDERED: LIDOCAINE HCL 1% 20 ML VIAL ONE (14:59)
[2018-11-28] MEDS ORDERED: GELATIN SPONGE SZ 100 ONE (15:00)
[2018-11-28] MEDS ORDERED: BUPIVACAINE 0.5 % 5 MG/1 ML MPF 30ML VIAL ONE (15:00)
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
[2018-11-28] MEDS ORDERED: ATROPINE SULFATE 0.1 MG/ML 10ML SYR IV PRN (15:07)
[2018-11-28] MEDS ORDERED: HYDROmorphone INJ 1 MG/ML SYRINGE IV PRN (15:07)
[2018-11-28] MEDS ORDERED: LABETALOL HCL IV 5 MG/ML 20ML IV PRN (15:07)
--- NOTE | 2018-11-28 16:21 | Post Operative Brief Note ---
Immediate Post Op Note v1 Date of Surgery November 28, 2018 Pre & Post Diagnosis Operation Date: 11/28/18 08:15 Pre-Op Diagnosis: adelina-anal abscess Procedure Operation Date: 11/28/18 08:15 <No data on this case meets the specified criteria> Surgeon Dung Oconnell MD Gasket Inspector None Estimated Blood Loss 15 Findings Consistent with Post-Op Diagnosis Specimens Culture Drains Jacob Catheter Anesthesia Type General Complications none
[2018-11-28] MEDS ORDERED: ONDANSETRON INJ 2 MG/ML 2 ML VIAL ONE (16:22)
--- NOTE | 2018-11-28 17:04 | Anesthesiology Progress Note ---
Date of Service November 28, 2018 Anesthesia Post Procedure Vital Signs Vital Signs: Temp Pulse Pulse Pulse Pulse Resp BP 11/28/18 16:50 99 H 19 11/28/18 16:40 100 H 20 11/28/18 16:34 36.3 C L 85 20 11/28/18 15:01 36.8 C 102 H 16 11/28/18 11:46 36.5 C 93 H 25 H 11/28/18 07:08 37.2 C 95 H 18 11/28/18 05:05 84 11/28/18 04:07 36.8 C 101 H 16 11/28/18 03:30 108 H 27 H 116/75 11/28/18 03:00 99 H 26 H 116/73 11/28/18 02:30 100 H 20 124/76 11/28/18 02:00 109 H 14 100/72 11/28/18 01:30 103 H 28 H 126/77 11/28/18 01:00 90 27 H 123/65 11/28/18 00:46 110 H 20 141/72 H 11/28/18 00:39 135 H 18 11/28/18 00:00 99 H 23 11/27/18 23:47 106 H 24 11/27/18 23:46 11/27/18 23:44 97 H 94 H 25 H 149/89 H 11/27/18 23:01 36.6 C 109 H 18 115/79 BP BP Pulse Ox 11/28/18 16:50 148/92 H 94 11/28/18 16:40 145/104 H 95 11/28/18 16:34 145/87 H 100 11/28/18 15:01 104/75 94 11/28/18 11:46 120/66 99 11/28/18 07:08 100/56 L 94 11/28/18 05:05 11/28/18 04:07 107/68 95 11/28/18 03:30 96 11/28/18 03:00 97 11/28/18 02:30 96 11/28/18 02:00 11/28/18 01:30 11/28/18 01:00 98 11/28/18 00:46 97 11/28/18 00:39 11/28/18 00:00 96 11/27/18 23:47 96 08/08/19 23:46 97 11/27/18 23:44 149/89 H 97 11/27/18 23:01 96 Pain Intensity Medial Buttock: Pain Intensity: 2 Transfer of Care Handoff Completed per policy Notes Mental Status: alert / awake / arousable Patient Amnestic to Procedure: Yes Nausea / Vomiting: adequately controlled Pain: adequately controlled Airway Patency, RR, SpO2: stable & adequate BP & HR: stable & adequate Hydration State: stable & adequate Anesthetic Complications: no major complications apparent
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
[2018-11-28] MEDS ORDERED: MoRPHine SULFATE 2 MG/ML CARP IV PRN (17:48)
[2018-11-28 19:36] LABS: BUN Creatinine Ratio 13.5 (10-20); Calcium 8.1 mg/dl (8.5-10.1); Creatinine Clr Calc Pharmacy 110.9 ml/min; Est GFR (African American) 119.1; Est GFR (Non-African American) 102.8; Potassium 3.6 mmol/L (3.5-5.1)
[2018-11-28] MEDS: OXYCODONE/ACETAMINOPHEN 5mg/325mg TAB PO PRN (20:44)
[2018-11-28] MEDS: TAMSULOSIN HCL 0.4 MG CAP PO SCH (20:45)
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
--- NOTE | 2018-11-28 21:36 | Ultrasound Report ---
US venous doppler LE RT CLINICAL HISTORY: 78 years-old Male presenting with dvt?. TECHNIQUE: Real-time grayscale and color and spectral Doppler ultrasound imaging of the veins of the right lower extremity was performed. Compression and augmentation were also utilized. COMPARISON: None. FINDINGS: RIGHT: Common femoral vein: Patent. Greater saphenous vein (superficial): Patent. Deep femoral vein: Patent. Femoral vein: Patent. Popliteal vein: Patent. Calf veins: Patent. Other: None. IMPRESSION: No evidence of deep venous thrombosis. Electronically signed by: Melecio Wilson M.D. 11/28/2018 9:35 PM
[2018-11-29] MEDS ORDERED: DAPTOmycin 400 MG in SYRINGE 0 ML IV SCH
--- NOTE | 2018-11-29 02:31 | Operative Report ---
DATE OF OPERATION: 11/28/2018 DATE OF PROCEDURE: 11/28/2018 PREOPERATIVE DIAGNOSIS: Perianal abscess. POSTOPERATIVE DIAGNOSIS: Perianal abscess. PROCEDURE: I&D of perianal abscess. SURGEON: Dung Oconnell MD FINDINGS: The patient had an abscess that extended anteriorly in a horseshoe fashion. I was able to identify it on both sides by aspiration. This was rather deep extending about 3 cm beyond the skin level. I opened the entire cavity. Cultures were sent. TECHNIQUE: The patient was given a general anesthetic and the area was prepped and draped in the usual sterile fashion. An 18-gauge needle was used to aspirate purulent material. This was first done on the left and then the right. I made 2 incisions vertically along the lateral aspects of the anal opening working anteriorly. I did extend the one on the left. Cautery was used to extend deeply, but I did not enter the cavity initially. I then opened the incision with retractors to the deeper tissues and aspirated more purulence. I then saw the purulence leaking from the cavity and opened the cavity. I placed my finger inside and opened any loculations. I then worked over towards the right side and opened loculations. I then performed a deeper dissection of the lateral tissues down to my finger and opened that cavity there. The area was completely cleaned of purulent material and a [place] drain was placed and secured. The estimated blood loss was 15 mL. Sponge, needle and instrument counts were correct prior to closure. The patient tolerated the surgical procedure without complication and was transferred to recovery. I attest to the content of the Intraoperative Record and any orders documented therein. Any exception s are noted below.
[2018-11-29] MEDS ORDERED: LEVOFLOXACIN/D5W 750 MG/150 ML BAG IV SCH (04:00)
[2018-11-29] MEDS: LEVOFLOXACIN/D5W 750 MG/150 ML BAG IV SCH (05:07)
[2018-11-29] MEDS: LEVOTHYROXINE SODIUM 88 MCG TABLET PO SCH (05:41)
[2018-11-29 06:17] LABS: Eosinophils # (auto) 0.07 K/uL (0-0.5); Hematocrit (blood only) 29.6 % (42-52); Hemoglobin 9.9 g/dL (14.0-18.0); Immature Granulocytes # (auto) 0.02 K/uL (0.00-0.02); Immature Granulocytes % (auto) 0.3 %; Lymphocytes # (auto) 0.98 K/uL (1.2-3.4); Lymphocytes % (auto) 13.9 %; Mean Corpuscular Hgb Conc 33.4 g/dL (32-36); Mean Corpuscular Volume 89.2 fL (80-100); Mean Platelet Volume 9.1 fL (7.4-10.4); Monocytes # (auto) 0.78 K/uL (0.11-0.59); Monocytes % (auto) 11.1 %; Neutrophils # (auto) 5.19 K/uL (1.4-6.5); Neutrophils % (auto) 73.7 %; Platelet Count 208 K/uL (130-400); RDW Coefficient of Variation 13.8 % (11.5-14.5); RDW Standard Deviation 45.5 fL (36.4-46.3); Red Blood Count 3.32 M/uL (4.7-6.1); White Blood Count 7.04 K/uL (4.8-10.8)
[2018-11-29 06:25] LABS: INR 1.6 (0.9-1.1); Prothrombin Time 16.2 Seconds (9.0-12.0)
[2018-11-29 06:47] LABS: BUN Creatinine Ratio 15.6 (10-20); Calcium 8.2 mg/dl (8.5-10.1); Creatinine Clr Calc Pharmacy 122.4 ml/min; Est GFR (African American) 124.1; Magnesium 1.6 mg/dl (1.8-2.4); Potassium 3.3 mmol/L (3.5-5.1)
[2018-11-29] MEDS: OXYCODONE/ACETAMINOPHEN 5mg/325mg TAB PO PRN (08:22)
[2018-11-29] MEDS: CARVEDILOL 3.125 MG TAB PO SCH ×2 (08:23→20:07)
[2018-11-29] MEDS: COLCHICINE 0.6 MG TAB PO SCH ×2 (08:23→20:07)
[2018-11-29] MEDS: PANTOprazole 40 MG TAB PO SCH (08:23)
[2018-11-29] MEDS: DESMOPRESSIN ACETATE 2 MCG in SODIUM CHLORIDE 0.9% 50 ML IV SCH (08:28)
[2018-11-29] MEDS: POTASSIUM CHLORIDE / WTR 10 MEQ/100 ML PLCT IV SCH ×2 (09:01→11:00)
--- NOTE | 2018-11-29 11:37 | Hospitalist Progress Note ---
Date of Service November 29, 2018 Assessment & Plan (1) Hyponatremia: Patient with hypo osmolar hyponatremia due to hypovolemia. Sodium is over corrected to 129 from 121 at presentation after a litre of fluids. Received Ddavp 2mcg tid. Appreciate nephrology input and recommendation Sodium is 128 today (2) Urinary retention: Improving with harris insertion. CT showed thick bladder but no hydronephrosis. Monitor input/output Has UTI secondary to E. coli which is pansensitive We will continue Levaquin for now which will cover right foot cellulitis as well (3) Perianal abscess: Has been on daptomycin and Levaquin Status post incision and drainage of the perineal abscess Appreciate surgery input and recommendation Wound culture is growing gram-negative bacilli-sensitivity pending Urine culture is positive for E. coli which is pansensitive Appreciate ID input and recommendation (4) Cellulitis of right lower extremity: Right lower extremity cellulitis seems to be improving We will continue current management as per wound care (5) Atrial fibrillation: Rate is controlled We will continue current medications Has been on Coumadin INR was 3.1 at presentation which was reversed with Kcentra and IV vitamin K INR is 1.4 today-11/29 We will continue Coumadin (6) Metabolic encephalopathy: Likely secondary to infection due to UTI and/or perianal abscess Also has history of cellulitis in the right foot Clinically stable and seems to be at his baseline His other medical conditions remained stable PT and OT evaluation before discharge Will be transferred to medical floor for continuation of care Subjective 11/29 The patient was seen and examined in telemetry unit He is a status post incision and drainage for perianal abscess Complains of pain at the bottom but denies any other symptoms Review of Systems Review of Systems: All systems reviewed and are unremarkable except as noted below Constitutional: + weakness Respiratory: no cough and no dyspnea Cardiovascular: no chest pain Gastrointestinal: + problem reported (Pain in the perineal area); no abdominal pain Physical Exam Physical Exam: No apparent distress at rest Constitutional: WD/WN, vitals as above + ill appearing and comfortable; no acute distress Eyes: PERRL, conjunctivae normal, anicteric sclerae ENMT: external ear and nose normal, oropharynx normal Mouth: + dentures Mallampati Class: I Neck: trachea midline, no thyromegaly neck nontender Respiratory: normal respiratory effort; no respiratory distress Auscultation: lungs clear to auscultation bilaterally Cardiovascular: Rate/Rhythm: regular rate, regular rhythm and + irregularly irregular Heart Sounds: normal S1 and normal S2; no gallop, no murmur and no cardiac rub Vessels: no JVD Gastrointestinal (Abdomen): Inspection/Auscultation: abdomen normal to inspection and normal bowel sounds Percussion/Palpation: abdomen soft; abdomen nontender, no hepatosplenomegaly and no abdominal mass Rectal Exam: + rectal tenderness (Mostly towards the left with tenderness in the left gluteal fold on the) Musculoskeletal: Spine: thoracic spine normal to inspection and lumbar spine normal to inspection; no cervical spinal tenderness Skin: normal turgor; no rashes Neurologic: moves all extremities; no focal motor deficits Psychiatric: Orientation: alert, oriented x 3 and cooperative Lymphatic: no cervical or axillary lymphadenopathy no inguinal lymphadenopathy Results & Data Vital Signs (Past 12 Hours) Vital Signs Temp Pulse Pulse Resp BP Pulse Ox 11/29/18 07:16 36.8 C 87 18 126/77 100 11/29/18 03:33 36.6 C 87 18 136/83 100 11/29/18 00:10 37.0 C 96 H 20 115/72 95 11/29/18 00:00 114 H Laboratory Results Short CBC 11/29/18 Range/Units 05:38 WBC 7.04 (4.8-10.8) K/uL Hgb 9.9 L (14.0-18.0) g/dL Hct 29.6 L (42-52) % Plt Count 208 (130-400) K/uL BMP 11/28/18 11/28/18 11/29/18 13:23 19:09 05:38 Sodium 127 L 128 L 128 L Potassium 3.5 3.6 3.3 L Chloride 92 L 91 L 92 L Carbon Dioxide 28 28 28 BUN 7 7 8 Creatinine 0.54 L 0.53 L 0.48 L Glucose 87 112 H 91 Calcium 8.3 L 8.1 L 8.2 L Medications Administered Current Inpatient Medications Acetaminophen (Tylenol) 650 mg PO Q4H PRN PRN Reason: Pain or Fever Stop: 12/28/18 04:05 Carvedilol (Coreg) 3.125 mg PO BID [facility] Stop: 12/28/18 08:59 Last Admin: 11/29/18 08:23 Dose: 3.125 mg Documented by: Colchicine (Colcrys) 0.6 mg PO BID [facility] Stop: 12/28/18 08:59 Last Admin: 11/29/18 08:23 Dose: 0.6 mg Documented by: Daptomycin 400 mg/ Syringe 8 mls @ 4 mls/min IV DAILY@0000 [facility]; Protocol Stop: 12/08/18 00:00 Last Admin: 11/28/18 23:53 Dose: 4 mls/min Documented by: Levofloxacin/Dextrose (Levaquin/D5w) 750 mg in 150 mls @ 100 mls/hr IV Q24H [facility]; Protocol Stop: 12/08/18 03:59 Last Infusion: 11/29/18 07:59 Dose: Infused Documented by: Levothyroxine Sodium (Synthroid) 88 mcg PO DAILYBB [facility] Stop: 12/28/18 06:29 Last Admin: 11/29/18 05:41 Dose: 88 mcg Documented by: Miscellaneous Information (Consult) 1 ea N/A UD PRN PRN Reason: Consult Stop: 12/28/18 04:13 Miscellaneous Information (Consult) 1 ea N/A UD PRN PRN Reason: Consult Stop: 12/28/18 14:34 Morphine Sulfate (Morphine Sulfate) 2 mg IV Q1H PRN PRN Reason: Pain Stop: 12/12/18 17:47 Nitroglycerin (Nitrostat) 0.4 mg SL UD PRN PRN Reason: Chest Pain Stop: 12/28/18 04:05 Ondansetron HCl (Zofran) 4 mg IV Q6H PRN PRN Reason: Nausea Stop: 12/28/18 04:05 Oxycodone/Acetaminophen (Percocet 5mg/325mg) 1 tab PO Q4H PRN PRN Reason: Pain Stop: 12/12/18 17:47 Last Admin: 11/29/18 08:22 Dose: 1 tab Documented by: Pantoprazole S[facility] (Protonix) [facility] [place]: 12/28/18 08:59 Last Admin: 11/29/18 08:23 Dose: 40 mg Documented by: Tamsulosin HCl (Flomax) 0.4 mg PO HS [facility] Stop: 12/28/18 20:59 Last Admin: 11/28/18 20:45 Dose: 0.4 mg Documented by: (1) Atrial fibrillation Atrial fibrillation type: paroxysmal Qualified Code(s): I48.0 - Paroxysmal atrial fibrillation
--- NOTE | 2018-11-29 14:05 | Surgery Progress Note ---
Date of Service November 29, 2018 Assessment & Plan (1) Perirectal abscess: Status post I&D of perianal abscess. Culture is pending Continue local care with just dressings and would leave drain in place for now Subjective Having pain at the surgical site but less deeper pain. No fever or chills. Physical Exam Physical Exam: Buttock incisions are draining serosanguineous drainage. The deeper tissues are healthy appearing. The drain is in place. Results & Data Vital Signs (Past 12 Hours) Vital Signs Temp Pulse Resp BP Pulse Ox 11/29/18 13:54 89 15 129/66 95 11/29/18 12:23 36.6 C 97 H 18 115/79 99 11/29/18 07:16 36.8 C 87 18 126/77 100 11/29/18 03:33 36.6 C 87 18 136/83 100
--- NOTE | 2018-11-29 16:06 | Nephrology Progress Note ---
Date of Service November 29, 2018 Assessment & Plan (1) Hyponatremia: Patient with hypo osmolar hyponatremia due to hypovolemia. Na over corrected to 129 on 11/28 after a litre of fluids but has remained stable at 128 today. Will stop ddavp. he can be allowed to rise on his own. target rate of r ise of 6-8/24hrs (2) Urinary retention: Improving with harris insertion. CT showed thick bladder but no hydronephrosis. Monitor input/output (3) Hypokalemia: He got 10meq of kcl this morning. No need to give more kcl today to avoid over correction of Na. We can give more kcl in the evening or tomorrow Subjective Patient seen in follow up for hyponatremia. Na stable at 128 today. No SOB or confusion. eating well. No vomiting or diarrhoea Review of Systems Review of Systems: All systems reviewed & are unremarkable except as noted in HPI & below Physical Exam Physical Exam: General exam: Appears comfortable, no acute distress HEENT: Pupils are equal and reactive to light Neck: No JVD, neck is supple trachea is midline Respiratory system: Clear breath sounds bilaterally. Gastrointestinal: Abdomen is soft, non distended, non tender, bowel sounds are present CVS: Regular rate and rhythm. No murmurs, rubs or gallops Musculoskeletal: No joint or muscle tenderness Extremities: Non tender, no edema, peripheral pulses are present Neuro: Oriented, no tremors, no focal neurological deficits Skin: No rashes Results & Data Vital Signs (Past 12 Hours) Vital Signs Temp Pulse Pulse Resp BP BP Pulse Ox 11/29/18 15:57 98 11/29/18 15:20 36.4 C L 97 H 18 122/76 11/29/18 13:54 89 15 129/66 95 11/29/18 12:23 36.6 C 97 H 18 115/79 99 11/29/18 07:16 36.8 C 87 18 126/77 100 Laboratory Results Laboratory Results - last 24 hr 11/28/18 11/29/18 11/29/18 19:09 05:38 05:38 WBC 7.04 RBC 3.32 L Hgb 9.9 L Hct 29.6 L MCV 89.2 MCH 29.8 MCHC 33.4 RDW Std Deviation 45.5 RDW Coeff of Luci 13.8 Plt Count 208 MPV 9.1 Immature Gran % (Auto) 0.3 Neut % (Auto) 73.7 Lymph % (Auto) 13.9 [place] % (Auto) 11.1 Eos % (Auto) 1.0 Baso % (Auto) 0.0 Immature Gran # (Auto) 0.02 Neut # (Auto) 5.19 Lymph # (Auto) 0.98 L [place] # (Auto) 0.78 H Eos # (Auto) 0.07 Baso # (Auto) 0.00 PT INR Sodium 128 L 128 L Potassium 3.6 3.3 L Chloride 91 L 92 L Carbon Dioxide 28 28 Anion Gap 9.0 8.0 BUN 7 8 Creatinine 0.53 L 0.48 L Est Cr Clr Drug Dosing 110.9 122.4 Est GFR ( Amer) 119.1 124.1 Est GFR (Non-Af Amer) 102.8 107.0 BUN/Creatinine Ratio 13.5 15.6 Glucose 112 H 91 Calcium 8.1 L 8.2 L Magnesium 1.6 L 11/29/18 05:38 WBC RBC Hgb Hct MCV MCH MCHC RDW Std Deviation RDW Coeff of Luci Plt Count MPV Immature Gran % (Auto) Neut % (Auto) Lymph % (Auto) [place] % (Auto) Eos % (Auto) Baso % (Auto) Immature Gran # (Auto) Neut # (Auto) Lymph # (Auto) [place] # (Auto) Eos # (Auto) Baso # (Auto) PT 16.2 H INR 1.6 H Sodium Potassium Chloride Carbon Dioxide Anion Gap BUN Creatinine Est Cr Clr Drug Dosing Est GFR ( Amer) Est GFR (Non-Af Amer) BUN/Creatinine Ratio Glucose Calcium Magnesium
[2018-11-29] MEDS: TAMSULOSIN HCL 0.4 MG CAP PO SCH (20:07)
[2018-11-30] MEDS: LEVOFLOXACIN/D5W 750 MG/150 ML BAG IV SCH (04:18)
[2018-11-30] MEDS: LEVOTHYROXINE SODIUM 88 MCG TABLET PO SCH (05:48)
[2018-11-30 06:21] LABS: INR 1.6 (0.9-1.1); Prothrombin Time 15.6 Seconds (9.0-12.0)
[2018-11-30] MEDS: COLCHICINE 0.6 MG TAB PO SCH ×2 (07:44→20:14)
[2018-11-30] MEDS: PANTOprazole 40 MG TAB PO SCH (07:44)
[2018-11-30] MEDS: CARVEDILOL 3.125 MG TAB PO SCH ×2 (07:44→20:14)
[2018-11-30] MEDS: WARFARIN SOD 4 MG TAB PO SCH (08:54)
--- NOTE | 2018-11-30 09:38 | Surgery Progress Note ---
Date of Service November 30, 2018 Assessment & Plan (1) Perirectal abscess: Postop day #2 status post I&D of perirectal abscess. Doing well. Serous drainage. Would continue with drain. Can go home with that. Cultures not yet completed. Would continue with present antibiotics Subjective Postoperative day #2 status post I&D of perianal rectal abscess Feels well today Very little pain today Physical Exam Physical Exam: Buttock incisions have serous drainage that is decreased in amount. Deeper tissue within the incisions appears pink and healthy. Results & Data Vital Signs (Past 12 Hours) Vital Signs Temp Pulse Resp BP BP Pulse Ox 11/30/18 06:57 36.5 C 87 18 129/79 96 11/29/18 22:50 36.5 C 78 18 97/57 L 93
[2018-11-30 09:48] LABS: BUN Creatinine Ratio 16.2 (10-20); Calcium 7.7 mg/dl (8.5-10.1); Creatinine Clr Calc Pharmacy 127.7 ml/min; Est GFR (African American) 126.3; Est GFR (Non-African American) 108.9; Potassium 3.5 mmol/L (3.5-5.1)
[2018-11-30] MEDS: LACTATED RINGER'S 1,000 ML IV SCH ×2 (10:59→19:09)
--- NOTE | 2018-11-30 14:25 | Hospitalist Progress Note ---
Date of Service November 30, 2018 Assessment & Plan (1) Hyponatremia: Patient with hypo osmolar hyponatremia due to hypovolemia. Sodium is over corrected to 129 from 121 at presentation after a litre of fluids. Received Ddavp 2mcg tid. Appreciate nephrology input and recommendation Sodium is 124 on 11/30 Infusion of normal saline has been started by conference planning manager Will check PRP at 3:00 this afternoon and tomorrow a (2) Urinary retention: Improving with harris insertion. CT showed thick bladder but no hydronephrosis. Monitor input/output Has UTI secondary to E. coli which is pansensitive We will continue Levaquin for now which will cover right foot cellulitis as well (3) Perianal abscess: Has been on daptomycin and Levaquin Status post incision and drainage of the perineal abscess Appreciate surgery input and recommendation Wound culture is growing gram-negative bacilli-sensitivity pending Urine culture is positive for E. coli which is pansensitive Appreciate ID input and recommendation He can be discharged tomorrow as per surgery Will have an outpatient appointment within 1 week with surgeon (4) Cellulitis of right lower extremity: Right lower extremity cellulitis seems to be improving We will continue current management as per wound care (5) Atrial fibrillation: Rate is controlled We will continue current medications Has been on Coumadin INR was 3.1 at presentation which was reversed with Kcentra and IV vitamin K INR is 1.6 today-11/30 We will continue Coumadin (6) Metabolic encephalopathy: Likely secondary to infection due to UTI and/or perianal abscess Also has history of cellulitis in the right foot Clinically stable and seems to be at his baseline His other medical conditions remained stable PT and OT evaluation before discharge Will be transferred to medical floor for continuation of care Will need PT and OT evaluation Likely discharge in a day or 2 Subjective 11/29 The patient was seen and examined in telemetry unit He is a status post incision and drainage for perianal abscess Complains of pain at the bottom but denies any other symptoms 11/30 The patient was seen and examined in medical floor He is status post incision and drainage of perianal abscess Complaints of pain in the perineal area with movement Has been generally weak and lethargic Denies any other symptoms Review of Systems Review of Systems: All systems reviewed and are unremarkable except as noted below Constitutional: + weakness Gastrointestinal: + problem reported (Pain in the perineal area); no abdominal pain Physical Exam Physical Exam: No apparent distress at rest Constitutional: WD/WN, vitals as above + ill appearing and comfortable; no acute distress Eyes: PERRL, conjunctivae normal, anicteric sclerae ENMT: external ear and nose normal, oropharynx normal Mouth: + dentures Mallampati Class: I Neck: trachea midline, no thyromegaly neck nontender Respiratory: normal respiratory effort; no respiratory distress Auscultation: lungs clear to auscultation bilaterally Cardiovascular: Rate/Rhythm: regular rate, regular rhythm and + irregularly irregular Heart Sounds: normal S1 and normal S2; no gallop, no murmur and no cardiac rub Vessels: no JVD Gastrointestinal (Abdomen): Inspection/Auscultation: abdomen normal to inspection and normal bowel sounds Percussion/Palpation: abdomen soft; abdomen nontender, no hepatosplenomegaly and no abdominal mass Rectal Exam: + rectal tenderness (Mostly towards the left with tenderness in the left gluteal fold on the) Musculoskeletal: Spine: thoracic spine normal to inspection and lumbar spine normal to inspection; no cervical spinal tenderness Chronic ischemic changes lower extremities Skin: normal turgor; no rashes Neurologic: moves all extremities; no focal motor deficits Generally weak Psychiatric: A+Ox3, euthymic affect Orientation: alert, oriented x 3 and cooperative Lymphatic: no cervical or axillary lymphadenopathy no inguinal lymphadenopathy Results & Data Vital Signs (Past 12 Hours) Vital Signs Temp Pulse Resp BP Pulse Ox 11/30/18 06:57 36.5 C 87 18 129/79 96 Laboratory Results [facility] 11/30/18 05:53 Sodium 124 L Potassium 3.5 Chloride 89 L Carbon Dioxide 28 BUN 8 Creatinine 0.46 L Glucose 107 H Calcium 7.7 L Medications Administered Current Inpatient Medications Acetaminophen (Tylenol) 650 mg PO Q4H PRN PRN Reason: Pain or Fever Stop: 12/28/18 04:05 Carvedilol (Coreg) 3.125 mg PO BID [facility] Stop: 12/28/18 08:59 Last Admin: 11/30/18 07:44 Dose: 3.125 mg Documented by: Colchicine (Colcrys) 0.6 mg PO BID [facility] Stop: 12/28/18 08:59 Last Admin: 11/30/18 07:44 Dose: 0.6 mg Documented by: Levofloxacin/Dextrose (Levaquin/D5w) 750 mg in 150 mls @ 100 mls/hr IV Q24H [facility]; Protocol Stop: 12/08/18 03:59 Last Infusion: 11/30/18 05:48 Dose: Infused Documented by: Lactated Ringer's (Lr) 1,000 mls @ 125 mls/hr IV .Q8H [facility] Stop: 12/30/18 10:29 Last Admin: 11/30/18 10:59 Dose: 125 mls/hr Documented by: Levothyroxine Sodium (Synthroid) 88 mcg PO DAILYBB [facility] Stop: 12/28/18 06:29 Last Admin: 11/30/18 05:48 Dose: 88 mcg Documented by: Miscellaneous Information (Consult) 1 ea N/A UD PRN PRN Reason: Consult Stop: 12/28/18 14:34 Morphine Sulfate (Morphine Sulfate) 2 mg IV Q1H PRN PRN Reason: Pain Stop: 12/12/18 17:47 Nitroglycerin (Nitrostat) 0.4 mg SL UD PRN PRN Reason: Chest Pain Stop: 12/28/18 04:05 Ondansetron HCl (Zofran) 4 mg IV Q6H PRN PRN Reason: Nausea Stop: 12/28/18 04:05 Oxycodone/Acetaminophen (Percocet 5mg/325mg) 1 tab PO Q4H PRN PRN Reason: Pain Stop: 12/12/18 17:47 Last Admin: 11/29/18 08:22 Dose: 1 tab Documented by: Pantoprazole Sodium (Protonix) 40 mg PO QAM [facility] Stop: 12/28/18 08:59 Last Admin: 11/30/18 07:44 Dose: 40 mg Documented by: Tamsulosin HCl (Flomax) 0.4 mg PO HS [facility] Stop: 12/28/18 20:59 Last Admin: 11/29/18 20:07 Dose: 0.4 mg Documented by: Warfarin Sodium (Coumadin) 2 mg PO Q2D@1600 [facility] Stop: 12/31/18 15:59 Warfarin Sodium (Coumadin) 4 mg PO Q2D@1600 [facility] Stop: 12/30/18 08:29 Last Admin: 11/30/18 08:54 Dose: 4 mg Documented by: (1) Atrial fibrillation Atrial fibrillation type: paroxysmal Qualified Code(s): I48.0 - Paroxysmal atrial fibrillation
[2018-11-30 15:40] LABS: BUN Creatinine Ratio 12.4 (10-20); Calcium 7.8 mg/dl (8.5-10.1); Creatinine Clr Calc Pharmacy 94.8 ml/min; Est GFR (African American) 111.7; Est GFR (Non-African American) 96.4; Potassium 3.6 mmol/L (3.5-5.1)
--- NOTE | 2018-11-30 16:49 | Nephrology Progress Note ---
Date of Service November 30, 2018 Assessment & Plan (1) Hyponatremia: Patient with hypo osmolar hyponatremia due to hypovolemia. Na over corrected then stabilized but now dropping to 124 today. Will give ringers lactate at 125ml/hr. repeat Na at 126. (2) Urinary retention: Improving with harris insertion. CT showed thick bladder but no hydronephrosis. Monitor input/output (3) Hypokalemia: Improving with supplement. Monitor and replace as needed Subjective Seen in f/u for hyponatremia. Patient not eating and drinking enough. Na dropped to 124 Review of Systems Review of Systems: All systems reviewed & are unremarkable except as noted in HPI & below Physical Exam Physical Exam: General exam: Appears comfortable, no acute distress HEENT: Pupils are equal and reactive to light Neck: No JVD, neck is supple trachea is midline Respiratory system: Clear breath sounds bilaterally. Gastrointestinal: Abdomen is soft, non distended, non tender, bowel sounds are present CVS: Regular rate and rhythm. No murmurs, rubs or gallops Musculoskeletal: No joint or muscle tenderness Extremities: Non tender, no edema, peripheral pulses are present Neuro: Oriented, no tremors, no focal neurological deficits Skin: No rashes Results & Data Vital Signs (Past 12 Hours) Vital Signs Temp Pulse Resp BP BP Pulse Ox 11/30/18 15:18 36.6 C 99 H 16 118/72 98 11/30/18 06:57 36.5 C 87 18 129/79 96 Laboratory Results Laboratory Results - last 24 hr 11/30/18 11/30/18 11/30/18 05:48 05:53 14:57 PT 15.6 H INR 1.6 H Sodium 124 L 126 L Potassium 3.5 3.6 Chloride 89 L 89 L Carbon Dioxide 28 30 Anion Gap 8.0 7.0 BUN 8 8 Creatinine 0.46 L 0.62 Est Cr Clr Drug Dosing 127.7 94.8 Est GFR ( Amer) 126.3 111.7 Est GFR (Non-Af Amer) 108.9 96.4 BUN/Creatinine Ratio 16.2 12.4 Glucose 107 H 115 H Calcium 7.7 L 7.8 L
[2018-11-30] MEDS: TAMSULOSIN HCL 0.4 MG CAP PO SCH (20:14)
[2018-12-01] MEDS: LACTATED RINGER'S 1,000 ML IV SCH (02:22)
[2018-12-01] MEDS: LEVOFLOXACIN/D5W 750 MG/150 ML BAG IV SCH (04:00)
[2018-12-01] MEDS: LEVOTHYROXINE SODIUM 88 MCG TABLET PO SCH (05:34)
[2018-12-01 05:35] LABS: Eosinophils # (auto) 0.05 K/uL (0-0.5); Eosinophils % (auto) 1.1 %; Hematocrit (blood only) 28.4 % (42-52); Hemoglobin 9.7 g/dL (14.0-18.0); Immature Granulocytes # (auto) 0.01 K/uL (0.00-0.02); Immature Granulocytes % (auto) 0.2 %; Lymphocytes % (auto) 15.6 %; Mean Corpuscular Hgb Conc 34.2 g/dL (32-36); Mean Corpuscular Volume 88.2 fL (80-100); Mean Platelet Volume 8.7 fL (7.4-10.4); Monocytes # (auto) 0.64 K/uL (0.11-0.59); Monocytes % (auto) 14.3 %; Neutrophils # (auto) 3.08 K/uL (1.4-6.5); Neutrophils % (auto) 68.8 %; Platelet Count 199 K/uL (130-400); RDW Coefficient of Variation 13.6 % (11.5-14.5); RDW Standard Deviation 44.1 fL (36.4-46.3); Red Blood Count 3.22 M/uL (4.7-6.1); White Blood Count 4.48 K/uL (4.8-10.8)
[2018-12-01 05:54] LABS: INR 1.5 (0.9-1.1); Prothrombin Time 14.9 Seconds (9.0-12.0)
[2018-12-01 06:07] LABS: BUN Creatinine Ratio 10.8 (10-20); Calcium 7.9 mg/dl (8.5-10.1); Creatinine Clr Calc Pharmacy 117.5 ml/min; Est GFR (Non-African American) 105.3; Magnesium 1.6 mg/dl (1.8-2.4); Potassium 3.3 mmol/L (3.5-5.1)
[2018-12-01] MEDS: CARVEDILOL 3.125 MG TAB PO SCH ×2 (08:24→20:15)
[2018-12-01] MEDS: COLCHICINE 0.6 MG TAB PO SCH ×2 (08:25→20:15)
[2018-12-01] MEDS: PANTOprazole 40 MG TAB PO SCH (08:25)
--- NOTE | 2018-12-01 08:25 | Anesthesiology Progress Note ---
Date of Service December 01, 2018 Anesthesia Post Procedure Vital Signs Vital Signs: Temp Pulse Resp BP BP Pulse Ox 12/01/18 06:42 36.6 C 86 18 126/74 95 11/30/18 23:15 36.7 C 86 18 103/67 95 11/30/18 20:10 76 106/71 94 11/30/18 15:18 36.6 C 99 H 16 118/72 98 Pain Intensity Medial Buttock: Pain Intensity: 4 Bilateral Ankle: Pain Intensity: 0 Notes Mental Status: alert / awake / arousable Patient Amnestic to Procedure: Yes Nausea / Vomiting: adequately controlled Pain: adequately controlled Airway Patency, RR, SpO2: stable & adequate BP & HR: stable & adequate Hydration State: stable & adequate Anesthetic Complications: no major complications apparent and Pt Satisfied with anesthetic care
[2018-12-01] MEDS ORDERED: POTASSIUM CHLORIDE 20 MEQ TABCR PO STA (10:40)
--- NOTE | 2018-12-01 11:39 | Infectious Disease Progress Nt ---
Date of Service December 01, 2018 Assessment & Plan (1) Perirectal abscess: 78-year-old male with large perirectal abscess with urinary retention, now awaiting surgical drainage. Would continue present broad-spectrum antibiotics pending culture results from operating room. continue abx for now, can change to po levaquin 500mg daily, this will treat urine as well. unclear significance of few enterococcus noted, continue abx and follow final culture results. will likely need 14 days min abx post d/c. Subjective pt continues on IV levaquin, tolerating well. OR cultures growing citrobacter and Enterococcus specis, final pending. afebrile, wbc 4. 8/9 urine culture growing pseudomonas, sensitive to quinolone. Results & Data Vital Signs (Past 12 Hours) Vital Signs Temp Pulse Resp BP Pulse Ox 12/01/18 06:42 36.6 C 86 18 126/74 95 Laboratory Results Microbiology 11/28/18 16:45 Rectal Abscess Gram Stain - Final 11/28/18 16:45 Rectal Abscess Aerobic and Anaerobic Culture - Preliminary Citrobacter braakii Enterococcus faecium 11/28/18 00:15 Urine,Straight Cath Urine Culture - Final Pseudomonas aeruginosa PG Care Time/CCT Total # of Minutes Spent Total Time Spent with Patient: Total time spent is greater than 50% in coordination of care (as documented) at patient's floor/unit and/or counseling patient:
--- NOTE | 2018-12-01 12:56 | Nephrology Progress Note ---
Date of Service December 01, 2018 Assessment & Plan (1) Hyponatremia: Patient with hypo osmolar hyponatremia due to hypovolemia. Na over corrected then stabilized then dropped; got LR at rapid rate >> improved to 136 today from 126 yesterday afternoon. this rate of correction is a bit fast but acceptable at this point simply to stop ivf; would recheck bmp tomorrow am ; sooner if any issues today (2) Urinary retention: Improving with harris insertion. CT showed thick bladder but no hydronephrosis. Monitor input/output >> defer to primary service wehn to consider voiding trial; does not need current harris for neph care (3) Hypokalemia: Improving with supplement. Monitor and replace as needed> still on lower side > supplemented today; will order standing supplement 20 mEq daily starting today in addition to already given 20 mEq Subjective seen on rounds this am 0830; feels improved; ate well this am; no N; does c/o chills today; no sob; mild RLE edema Review of Systems Review of Systems: All systems reviewed & are unremarkable except as noted in HPI & below Physical Exam Constitutional: well developed and well nourished up in chair on RA wrappedin blanket Eyes: EOM intact bilaterally ENMT: Ears: no external ear abnormality Nose: no external nose abnormality Mouth: + dry oral mucous membranes Neck: no nuchal rigidity Respiratory: normal respiratory effort Auscultation: lungs clear to auscultation bilaterally and + diminished lung sounds Cardiovascular: Rate/Rhythm: regular rate and regular rhythm Extremities: + edema (RLe 1+ edema, LLE trace) Gastrointestinal (Abdomen): Inspection/Auscultation: normal bowel sounds Percussion/Palpation: abdomen soft; abdomen nontender Musculoskeletal: Extremities: strength 5/5 throughout Skin: no rashes, warm and dry Neurologic: [place], fluent speech, no tremor Psychiatric: A+Ox3, euthymic affect Results & Data Vital Signs (Past 12 Hours) Vital Signs Temp Pulse Resp BP Pulse Ox 12/01/18 06:42 36.6 C 86 18 126/74 95 Laboratory Results Abnormal lab results 11/30/18 12/01/18 12/01/18 Range/Units 14:57 05:24 05:24 WBC 4.48 L (4.8-10.8) K/uL RBC 3.22 L (4.7-6.1) M/uL Hgb 9.7 L (14.0-18.0) g/dL Hct 28.4 L (42-52) % Lymph # (Auto) 0.70 L (1.2-3.4) K/uL [place] # (Auto) 0.64 H (0.11-0.59) K/uL PT 14.9 H (9.0-12.0) Seconds INR 1.5 H (0.9-1.1) Sodium 126 L (136-145) mmol/L Potassium (3.5-5.1) mmol/L Chloride 89 L (98-107) mmol/L BUN (7-18) mg/dl Creatinine (0.6-1.4) mg/dl Glucose 115 H (70-99) mg/dl Calcium 7.8 L (8.5-10.1) mg/dl Magnesium (1.8-2.4) mg/dl 12/01/18 Range/Units 05:24 WBC (4.8-10.8) K/uL RBC (4.7-6.1) M/uL Hgb (14.0-18.0) g/dL Hct (42-52) % Lymph # (Auto) (1.2-3.4) K/uL [place] # (Auto) (0.11-0.59) K/uL PT (9.0-12.0) Seconds INR (0.9-1.1) Sodium (136-145) mmol/L Potassium 3.3 L (3.5-5.1) mmol/L Chloride (98-107) mmol/L BUN 5 L (7-18) mg/dl Creatinine 0.50 L (0.6-1.4) mg/dl Glucose 107 H (70-99) mg/dl Calcium 7.9 L (8.5-10.1) mg/dl Magnesium 1.6 L (1.8-2.4) mg/dl
[2018-12-01] MEDS: POTASSIUM CHLORIDE 20 MEQ TABCR PO SCH (15:44)
[2018-12-01] MEDS ORDERED: WARFARIN SOD 2 MG TAB PO SCH (16:00)
--- NOTE | 2018-12-01 16:58 | Hospitalist Progress Note ---
Date of Service December 01, 2018 Assessment & Plan (1) Hyponatremia: Patient with hypo osmolar hyponatremia due to hypovolemia. Sodium is over corrected to 129 from 121 at presentation after a litre of fluids. Received Ddavp 2mcg tid. Appreciate nephrology input and recommendation Sodium is 124 on 11/30 Infusion of normal saline has been started by benefits clerk Will check PRP at 3:00 this afternoon and tomorrow Sodium level is normalized IV fluid has been discontinued (2) Urinary retention: Improving with harris insertion. CT showed thick bladder but no hydronephrosis. Monitor input/output Has UTI secondary to E. coli which is pansensitive We will continue Levaquin for now which will cover right foot cellulitis as well (3) Perianal abscess: Has been on daptomycin and Levaquin Status post incision and drainage of the perineal abscess Appreciate surgery input and recommendation Wound culture is growing gram-negative bacilli-sensitivity pending Urine culture is positive for E. coli which is pansensitive Appreciate ID input and recommendation He can be discharged tomorrow as per surgery Will have an outpatient appointment within 1 week with surgeon We will get PT and OT evaluation and possible discharge tomorrow (4) Cellulitis of right lower extremity: Right lower extremity cellulitis seems to be improving We will continue current management as per wound care No spreading cellulitis (5) Atrial fibrillation: Rate is controlled We will continue current medications Has been on Coumadin INR was 3.1 at presentation which was reversed with Kcentra and IV vitamin K INR is 1.6 today-11/30 We will continue Coumadin-INR 1.5 on 12/01 (6) Metabolic encephalopathy: Likely secondary to infection due to UTI and/or perianal abscess Also has history of cellulitis in the right foot Clinically stable and seems to be at his baseline His other medical conditions remained stable PT and OT evaluation before discharge Will be transferred to medical floor for continuation of care Will need PT and OT evaluation Likely discharge tomorrow Subjective 11/29 The patient was seen and examined in telemetry unit He is a status post incision and drainage for perianal abscess Complains of pain at the bottom but denies any other symptoms 11/30 The patient was seen and examined in medical floor He is status post incision and drainage of perianal abscess Complaints of pain in the perineal area with movement Has been generally weak and lethargic Denies any other symptoms 8/12 Patient was seen and examined in the medical floor He has been stable and complains some pain at the perineal area Denies any other significant symptoms Review of Systems Review of Systems: All systems reviewed and are unremarkable except as noted below Constitutional: + weakness Gastrointestinal: + problem reported (Pain in the perineal area); no abdominal pain Physical Exam Physical Exam: Lives in bed comfortably without any acute symptoms Constitutional: + ill appearing and comfortable; no acute distress Eyes: PERRL, conjunctivae normal, anicteric sclerae ENMT: external ear and nose normal, oropharynx normal Mouth: + dentures Mallampati Class: I Neck: trachea midline, no thyromegaly neck nontender Respiratory: normal respiratory effort; no respiratory distress Auscultation: lungs clear to auscultation bilaterally Cardiovascular: Rate/Rhythm: regular rate, regular rhythm and + irregularly irregular Heart Sounds: normal S1 and normal S2; no gallop, no murmur and no cardiac rub Vessels: no JVD Gastrointestinal (Abdomen): Inspection/Auscultation: abdomen normal to inspection and normal bowel sounds Percussion/Palpation: abdomen soft; abdomen nontender, no hepatosplenomegaly and no abdominal mass Rectal Exam: + rectal tenderness (Mostly towards the left with tenderness in the left gluteal fold on the) Musculoskeletal: no cyanosis or clubbing, extremities motor strength 5/5 Spine: thoracic spine normal to inspection and lumbar spine normal to inspection; no cervical spinal tenderness Skin: normal turgor; no rashes Neurologic: moves all extremities (Generally weak); no focal motor deficits Psychiatric: A+Ox3, euthymic affect Orientation: alert, oriented x 3 and cooperative Lymphatic: no cervical or axillary lymphadenopathy no inguinal lymphadenopathy Results & Data Vital Signs (Past 12 Hours) Vital Signs Temp Pulse Resp BP BP Pulse Ox 12/01/18 15:37 36.7 C 96 H 16 128/87 97 12/01/18 06:42 36.6 C 86 18 126/74 95 Laboratory Results Short CBC 12/01/18 Range/Units 05:24 WBC 4.48 L (4.8-10.8) K/uL Hgb 9.7 L (14.0-18.0) g/dL Hct 28.4 L (42-52) % Plt Count 199 (130-400) K/uL BMP 12/01/18 05:24 Sodium 136 D Potassium 3.3 L Chloride 98 Carbon Dioxide 30 BUN 5 L Creatinine 0.50 L Glucose 107 H Calcium 7.9 L Medications Administered Current Inpatient Medications Acetaminophen (Tylenol) 650 mg PO Q4H PRN PRN Reason: Pain or Fever Stop: 12/28/18 04:05 Carvedilol (Coreg) 3.125 mg PO BID [facility] Stop: 12/28/18 08:59 Last Admin: 12/01/18 08:24 Dose: 3.125 mg Documented by: Colchicine (Colcrys) 0.6 mg PO BID [facility] Stop: 12/28/18 08:59 Last Admin: 12/01/18 08:25 Dose: 0.6 mg Documented by: Levofloxacin/Dextrose (Levaquin/D5w) 750 mg in 150 mls @ 100 mls/hr IV Q24H [facility]; Protocol Stop: 12/08/18 03:59 Last Infusion: 12/01/18 05:35 Dose: Infused Documented by: Levothyroxine Sodium (Synthroid) 88 mcg PO DAILYBB [facility] Stop: 12/28/18 06:29 Last Admin: 12/01/18 05:34 Dose: 88 mcg Documented by: Miscellaneous Information (Consult) 1 ea N/A UD PRN PRN Reason: Consult Stop: 12/28/18 14:34 Morphine Sulfate (Morphine Sulfate) 2 mg IV Q1H PRN PRN Reason: Pain Stop: 12/12/18 17:47 Nitroglycerin (Nitrostat) 0.4 mg SL UD PRN PRN Reason: Chest Pain Stop: 12/28/18 04:05 Ondansetron HCl (Zofran) 4 mg IV Q6H PRN PRN Reason: Nausea Stop: 12/28/18 04:05 Oxycodone/Acetaminophen (Percocet 5mg/325mg) 1 tab PO Q4H PRN PRN Reason: Pain Stop: 12/12/18 17:47 Last Admin: 11/29/18 08:22 Dose: 1 tab Documented by: Pantoprazole Sodium (Protonix) [facility] Stop: 12/28/18 08:59 Last Admin: 12/01/18 08:25 Dose: 40 mg Documented by: Potassium Chloride (Klor-Con M20) 20 meq PO QAAM[facility] Stop: 12/31/18 13:14 Last Admin: 12/01/18 15:44 Dose: 20 meq Documented by: Tamsulosin HCl (Flomax) 0.4 mg PO HS [facility] Stop: 12/28/18 20:59 Last Admin: 11/30/18 20:14 Dose: 0.4 mg Documented by: Warfarin Sodium (Coumadin) 2 mg PO Q2D@1600 [facility] Stop: 12/31/18 15:59 Last Admin: 12/01/18 15:44 Dose: 2 mg Documented by: Warfarin Sodium (Coumadin) 4 mg PO Q2D@1600 [facility] Stop: 12/30/18 08:29 Last Admin: 11/30/18 08:54 Dose: 4 mg Documented by: (1) Atrial fibrillation Atrial fibrillation type: paroxysmal Qualified Code(s): I48.0 - Paroxysmal atrial fibrillation
[2018-12-01] MEDS: TAMSULOSIN HCL 0.4 MG CAP PO SCH (20:15)
[2018-12-02] MEDS: LEVOFLOXACIN/D5W 750 MG/150 ML BAG IV SCH (05:12)
[2018-12-02] MEDS: LEVOTHYROXINE SODIUM 88 MCG TABLET PO SCH (05:12)
[2018-12-02 06:21] LABS: INR 1.7 (0.9-1.1)
[2018-12-02] MEDS: CARVEDILOL 3.125 MG TAB PO SCH ×2 (08:32→19:58)
[2018-12-02] MEDS: COLCHICINE 0.6 MG TAB PO SCH ×2 (08:32→19:58)
[2018-12-02] MEDS: POTASSIUM CHLORIDE 20 MEQ TABCR PO SCH (08:33)
[2018-12-02] MEDS: PANTOprazole 40 MG TAB PO SCH (08:33)
[2018-12-02 10:26] LABS: BUN Creatinine Ratio 9.1 (10-20); Calcium 8.5 mg/dl (8.5-10.1); Creatinine Clr Calc Pharmacy 122.4 ml/min; Est GFR (African American) 124.1; Potassium 3.7 mmol/L (3.5-5.1)
--- NOTE | 2018-12-02 12:28 | Hospitalist Progress Note ---
Date of Service December 02, 2018 Assessment & Plan (1) Hyponatremia: Patient with hypo osmolar hyponatremia due to hypovolemia. Sodium is over corrected to 129 from 121 at presentation after a litre of fluids. Received Ddavp 2mcg tid. Appreciate nephrology input and recommendation Sodium is 124 on 11/30 Infusion of normal saline has been started by specialist field engineer Will check PRP at 3:00 this afternoon and tomorrow Sodium level is normalized IV fluid has been discontinued Sodium level has been stable around 1 33-1 36 (2) Urinary retention: Improving with harris insertion. CT showed thick bladder but no hydronephrosis. Monitor input/output Has UTI secondary to E. coli which is pansensitive We will continue Levaquin for now which will cover right foot cellulitis as well We will keep the Harris in place on discharge (3) Perianal abscess: Has been on daptomycin and Levaquin Status post incision and drainage of the perineal abscess Appreciate surgery input and recommendation Wound culture is growing gram-negative bacilli-sensitivity pending Urine culture is positive for E. coli which is pansensitive Appreciate ID input and recommendation He can be discharged tomorrow as per surgery Will have an outpatient appointment within 1 week with surgeon We will get PT and OT evaluation and possible discharge tomorrow Has a drainage catheter and as per surgery it will be in place on discharge He will have a follow-up appointment with surgery as an outpatient (4) Cellulitis of right lower extremity: Right lower extremity cellulitis seems to be improving We will continue current management as per wound care No spreading cellulitis (5) Atrial fibrillation: Rate is controlled We will continue current medications Has been on Coumadin INR was 3.1 at presentation which was reversed with Kcentra and IV vitamin K INR is 1.6 today-11/30 We will continue Coumadin-INR 1.5 on 12/01 INR is 1.7 on 12/19 (6) Metabolic encephalopathy: Likely secondary to infection due to UTI and/or perianal abscess Also has history of cellulitis in the right foot Clinically stable and seems to be at his baseline His other medical conditions remained stable PT and OT evaluation before discharge Will be transferred to medical floor for continuation of care Will need PT and OT evaluation Likely discharge this afternoon Subjective 11/29 The patient was seen and examined in telemetry unit He is a status post incision and drainage for perianal abscess Complains of pain at the bottom but denies any other symptoms 8/11 The patient was seen and examined in medical floor He is status post incision and drainage of perianal abscess Complaints of pain in the perineal area with movement Has been generally weak and lethargic Denies any other symptoms 12/01 Patient was seen and examined in the medical floor He has been stable and complains some pain at the perineal area Denies any other significant symptoms 12/02 The patient was seen and examined the medical floor He still complains of pain in perineal area He denies any chest pain and/or shortness of breath, no abdominal pain and no nausea,vomiting Review of Systems Review of Systems: All systems reviewed and are unremarkable except as noted below Constitutional: + weakness Gastrointestinal: + problem reported (Pain in the perineal area); no abdominal pain Physical Exam Physical Exam: Lying in bed comfortably Constitutional: + ill appearing and comfortable; no acute distress Eyes: PERRL, conjunctivae normal, anicteric sclerae ENMT: external ear and nose normal, oropharynx normal Mouth: + dentures Mallampati Class: I Neck: trachea midline, no thyromegaly neck nontender Respiratory: normal respiratory effort; no respiratory distress Auscultation: lungs clear to auscultation bilaterally Cardiovascular: Rate/Rhythm: regular rate, regular rhythm and + irregularly irregular Heart Sounds: normal S1 and normal S2; no gallop, no murmur and no cardiac rub Vessels: no JVD Gastrointestinal (Abdomen): Inspection/Auscultation: abdomen normal to inspection and normal bowel sounds Percussion/Palpation: abdomen soft; abdomen nontender, no hepatosplenomegaly and no abdominal mass Rectal Exam: + rectal tenderness (Mostly towards the left with tenderness in the left gluteal fold on the) Musculoskeletal: Spine: thoracic spine normal to inspection and lumbar spine normal to inspection; no cervical spinal tenderness Generally weak Skin: normal turgor; no rashes Neurologic: moves all extremities (Generally weak); no focal motor deficits Psychiatric: A+Ox3, euthymic affect Orientation: alert, oriented x 3 and cooperative Lymphatic: no cervical or axillary lymphadenopathy no inguinal lymphadenopathy Results & Data Vital Signs (Past 12 Hours) Vital Signs Temp Pulse Resp BP Pulse Ox 12/02/18 07:08 36.8 C 91 H 18 111/71 96 Laboratory Results BMP 12/02/18 05:35 Sodium 133 L Potassium 3.7 Chloride 96 L Carbon Dioxide 30 BUN 4 L Creatinine 0.48 L Glucose 94 Calcium 8.5 Medications Administered Current Inpatient Medications Acetaminophen (Tylenol) 650 mg PO Q4H PRN PRN Reason: Pain or Fever Stop: 12/28/18 04:05 Carvedilol (Coreg) 3.125 mg PO BID [facility] Stop: 12/28/18 08:59 Last Admin: 12/02/18 08:32 Dose: 3.125 mg Documented by: Colchicine (Colcrys) 0.6 mg PO BID [facility] Stop: 12/28/18 08:59 Last Admin: 12/02/18 08:32 Dose: 0.6 mg Documented by: Levofloxacin (Levaquin) 500 mg PO Q24H [facility]; Protocol Stop: 12/08/18 03:59 Levothy[facility]ine [facility]) [facility] Stop: 12/28/18 06:29 Last Admin: 12/02/18 05:12 Dose: 88 mcg Documented by: Miscellaneous Information (Consult) 1 ea N/A UD PRN PRN Reason: Consult Stop: 12/28/18 14:34 Morphine Sulfate (Morphine Sulfate) 2 mg IV Q1H PRN PRN Reason: Pain Stop: 12/12/18 17:47 Nitroglycerin (Nitrostat) 0.4 mg SL UD PRN PRN Reason: Chest Pain Stop: 12/28/18 04:05 Ondansetron HCl (Zofran) 4 mg IV Q6H PRN PRN Reason: Nausea Stop: 12/28/18 04:05 Oxycodone/Acetaminophen (Percocet 5mg/325mg) 1 tab PO Q4H PRN PRN Reason: Pain Stop: 12/12/18 17:47 Last Admin: 11/29/18 08:22 Dose: 1 tab Documented by: Pantoprazole Sodium (Protonix) [facility] [place] Stop: 12/28/18 08:59 Last Admin: 12/02/18 08:33 Dose: 40 mg Documented by: Potassium Chloride (Klor-Con M20) 20 meq PO QAM [facility] Stop: 12/31/18 13:14 Last Admin: 12/02/18 08:33 Dose: 20 meq Documented by: Tamsulosin HCl (Flomax) 0.4 mg PO [facility] Stop: 09/08/19 20:59 Last Admin: 12/01/18 20:15 Dose: 0.4 mg Documented by: Warfarin Sodium (Coumadin) 2 mg PO Q2D@1600 [facility] Stop: 12/31/18 15:59 Last Admin: 12/01/18 15:44 Dose: 2 mg Documented by: Warfarin Sodium (Coumadin) 4 mg PO Q2D@1600 [facility] Stop: 12/30/18 08:29 Last Admin: 11/30/18 08:54 Dose: 4 mg Documented by: (1) Atrial fibrillation Atrial fibrillation type: paroxysmal Qualified Code(s): I48.0 - Paroxysmal atrial fibrillation
--- NOTE | 2018-12-02 13:04 | Infectious Disease Progress Nt ---
Date of Service December 02, 2018 Assessment & Plan (1) Perirectal abscess: will restart po levaquin, monitor INR. will start zyvox, will need additional 10 days abx. no contraindication to d/c from ID standpoint. Subjective pt seen in followup, tolerating abx. levaquin stopped. no f/c no pain, states he feels tired today, PT/OT eval pending for tentative d/c. denies abd pain, states not hungry, no n/v/d. no cp, sob. all remaining ros reviewed and are negative. abscess culture growing citrobacter and E. faecium, clinically improving. Isolated resistant to pcn, but pcn allergy. Review of Systems Review of Systems: All systems reviewed & are unremarkable except as noted in HPI & below Physical Exam Constitutional: WD/WN, vitals as above + thin Eyes: PERRL, conjunctivae normal, anicteric sclerae ENMT: external ear and nose normal, oropharynx normal Neck: normal visual inspection Respiratory: normal respiratory effort, lungs clear to auscultation Cardiovascular: RRR, no murmur, no edema Gastrointestinal (Abdomen): normal bowel sounds, soft, nontender, no hepatosplenomegaly Musculoskeletal: no cyanosis or clubbing, extremities motor strength 5/5 Skin: no rashes, warm and dry Psychiatric: A+Ox3, euthymic affect Results & Data Vital Signs (Past 12 Hours) Vital Signs Temp Pulse Resp BP Pulse Ox 12/02/18 07:08 36.8 C 91 H 18 111/71 96 Laboratory Results Microbiology 11/28/18 16:45 Rectal Abscess Gram Stain - Final 11/28/18 16:45 Rectal Abscess Aerobic and Anaerobic Culture - Preliminary Citrobacter braakii Enterococcus faecium 11/28/18 00:15 Urine,Straight Cath Urine Culture - Final Pseudomonas aeruginosa PG Care Time/CCT Total # of Minutes Spent Total Time Spent with Patient: Total time spent is greater than 50% in coordination of care (as documented) at patient's floor/unit and/or counseling patient:
[2018-12-02] MEDS: WARFARIN SOD 4 MG TAB PO SCH (15:44)
--- NOTE | 2018-12-02 16:45 | Nephrology Progress Note ---
Date of Service December 02, 2018 Assessment & Plan (1) Hyponatremia: Patient with hypo osmolar hyponatremia due to hypovolemia. Na over corrected then stabilized then dropped; then improved w/ aggressive IVF, off since yesterday. repeat bmp acceptable today will sign off; pls call if ?; if for d/c, recommend repeat bmp w/in a week and repeat 1-2 times over next month; no indication for ckd clinic f/u unless electrolyte issues persist (2) Urinary retention: Improving with harris insertion. CT showed thick bladder but no hydronephrosis. Monitor input/output >> defer to primary service when to consider voiding trial; does not need current harris for neph care (3) Hypokalemia: Improving with supplement. Monitor and replace as needed after d/c Subjective seen on rounds this am 0930; c/o ongoing weakness, fatigue; GI upset Review of Systems Review of Systems: All systems reviewed & are unremarkable except as noted in HPI & below Physical Exam Constitutional: well developed and well nourished lying flat on ra Eyes: EOM intact bilaterally ENMT: Ears: no external ear abnormality Nose: no external nose abnormality Mouth: + dry oral mucous membranes Neck: no nuchal rigidity Respiratory: normal respiratory effort Auscultation: lungs clear to auscultation bilaterally and + diminished lung sounds Cardiovascular: Rate/Rhythm: regular rate and regular rhythm Extremities: + edema (RLe 1+ edema, LLE trace) Gastrointestinal (Abdomen): Inspection/Auscultation: normal bowel sounds Percussion/Palpation: abdomen soft; abdomen nontender Musculoskeletal: Extremities: strength 5/5 throughout Skin: no rashes, warm and dry Neurologic: [place], fluent speech Psychiatric: A+Ox3, euthymic affect Results & Data Vital Signs (Past 12 Hours) Vital Signs Temp Pulse Pulse Resp BP BP Pulse Ox 12/02/18 16:34 36.7 C 87 18 115/73 96 12/02/18 15:56 36.8 C 89 91 H 18 111/71 126/74 96 12/02/18 07:08 36.8 C 91 H 18 111/71 96 Laboratory Results Abnormal lab results 12/02/18 12/02/18 Range/Units 05:30 05:35 PT 17.0 H (9.0-12.0) Seconds INR 1.7 H (0.9-1.1) Sodium 133 L (136-145) mmol/L Chloride 96 L (98-107) mmol/L BUN 4 L (7-18) mg/dl Creatinine 0.48 L (0.6-1.4) mg/dl BUN/Creatinine Ratio 9.1 L (10-20)
--- NOTE | 2018-12-02 18:35 | Surgery Progress Note ---
Date of Service December 02, 2018 Assessment & Plan (1) Perirectal abscess: Status post I&D of perirectal abscess Cultures noted continue antibiotics Would leave Hagerman drain in place for now Present on Admission?: Yes Subjective Status post I&D of perirectal abscess States pain has improved Denies nausea and vomiting Having liquid bowel movements Physical Exam Physical Exam: Incisions are clean and dry. There is some fecal contamination Tissues deep within the incisions are pink and healthy Results & Data Vital Signs (Past 12 Hours) Vital Signs Temp Pulse Pulse Resp BP BP Pulse Ox 12/02/18 16:34 36.7 C 87 18 115/73 96 12/02/18 15:56 36.8 C 89 91 H 18 111/71 126/74 96 12/02/18 07:08 36.8 C 91 H 18 111/71 96
[2018-12-02] MEDS: TAMSULOSIN HCL 0.4 MG CAP PO SCH (19:58)
[2018-12-02] MEDS ORDERED: LINEZOLID 600 MG TAB PO SCH (21:00)
[2018-12-03] MEDS ORDERED: levoFLOXacin 500 MG TAB PO SCH ×2 (04:00→11:00)
--- NOTE | 2018-12-03 10:31 | Discharge Summary ---
Date of Service December 03, 2018 Admission HPI Per Admitting Provider DICTATED BY: Orlin Najera MD DATE OF ADMISSION: 11/28/2018 CHIEF COMPLAINT: Unable to void and confusion. 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 diff infection, history of traumatic brain injury, presents with unable to void and confusion. In October, he was transferred to [place] from [facility] because of pneumocystosis coli and UTI, possible ischemic bowel. The patient was discharged from [place] on November 12 to [facility], he was treated with antibiotics for a total of 7 days for UTI. He also had painful right knee for which Rheumatology was consulted. It was aspirated and was found to have pseudogout, he was placed on colchicine. The patient got discharged from [facility] to home yesterday to his son's house. As per the son, the patient is not ambulating, since last one months, he is needing assistance for ambulation. After coming home, the patient's appetite down. From morning 8 a.m.,yesterday he has not voided, he is also getting confused so that is why the son brought him to the hospital. In the hospital, he was found to have sodium of 121, received 1 liter of fluids so far and also his imaging studies official readings are pending, but shows recurrent rectal abscesses. . He received Levaquin and daptomycin in the ER. UA is also positive. The patient is currently resting comfortably and hemodynamically stable, could tell his name. He has some neck pain. He knows that he is in the hospital, not oriented to time, but he is mumbling the words. I could not get complete history from the patient. He Denies any chest pain. Denies shortness of breath. Denies nausea, denies abdominal pain. Admission Exam Per Admitting Provider GENERAL: The patient is old and frail, not in acute distress, but confused. VITAL SIGNS: Temperature 36.6, pulse 109, respiratory rate 14, blood pressure 100/72, oxygen 98% on room air. HEENT: No pallor, no icterus. Pupils equal, round, and reactive to light. NECK: No JVD, no neck masses, no carotid bruits. CARDIOVASCULAR: S1, S2 heard, regular rate and rhythm. No murmur, no gallop. RESPIRATORY SYSTEM: Normal AP diameter. No accessory muscle use. No wheezing, no crackles. ABDOMEN: Soft, bowel sounds present, nontender. No distention. CENTRAL NERVOUS SYSTEM: Alert and oriented to name and place. Moves extremities. Somewhat confused. EXTREMITIES: No edema, chronic skin changes seen, chronic venous stasis seen. Right lower extremity is somewhat swollen. Principal Diagnosis Hyponatremia-Corrected, perianal abscess status post incision and drainage with a drain in situ, atrial fibrillation, urinary retention Discharge Exam Constitutional WD/WN, vitals as above + ill appearing and comfortable; no acute distress Eyes PERRL, conjunctivae normal, anicteric sclerae ENMT external ear and nose normal, oropharynx normal Mouth: + dentures Mallampati Class: I Neck trachea midline, no thyromegaly neck nontender Respiratory normal respiratory effort, lungs clear to auscultation normal respiratory effort; no respiratory distress Auscultation: lungs clear to auscultation bilaterally Cardiovascular Rate/Rhythm: regular rate, regular rhythm and + irregularly irregular Heart Sounds: normal S1 and normal S2; no gallop, no murmur and no cardiac rub Vessels: no JVD Gastrointestinal (Abdomen) Inspection/Auscultation: abdomen normal to inspection and normal bowel sounds Percussion/Palpation: abdomen soft; abdomen nontender, no hepatosplenomegaly and no abdominal mass Rectal Exam: + rectal tenderness (Mostly towards the left with tenderness in the left gluteal fold on the) Musculoskeletal no cyanosis or clubbing, extremities motor strength 5/5 Spine: thoracic spine normal to inspection and lumbar spine normal to inspection; no cervical spinal tenderness Skin normal turgor; no rashes Neurologic patellar DTR's 2+ bilat, sensation intact moves all extremities (Generally weak); no focal motor deficits Psychiatric A+Ox3, euthymic affect Orientation: alert, oriented x 3 and cooperative Lymphatic no cervical or axillary lymphadenopathy no inguinal lymphadenopathy Discharge Data Allergies Allergy/AdvReac Type Severity Reaction Status Date / Time amoxicillin Allergy Intermediate RASH, Verified 11/27/18 23:29 ITCHING cephalexin Allergy Intermediate RASH,ITCHIN Verified 11/27/18 23:29 G Cipro Allergy Intermediate RASH Verified 06/22/17 15:22 ciprofloxacin Allergy Intermediate RASH Verified 11/27/18 23:29 clavulanic acid Allergy Intermediate RASH, Verified 11/27/18 23:29 ITCHING Penicillins Allergy Intermediate AUGMENTIN-R Verified 11/27/18 23:29 KITTY,ITCHING morphine Allergy Mild RASH Verified 11/27/18 23:29 sulfamethoxazole Allergy Mild Rash Verified 11/27/18 23:29 [From Bactrim] trimethoprim [From Bactrim] Allergy Mild Rash Verified 11/27/18 23:29 Consultations 11/28/18 01:23 ED Decision to Admit Stat 11/28/18 04:06 Consult Case Management - Discharge Planning Routine 11/28/18 08:00 Consult Infectious Diseases Routine Consult Nephrology Routine 11/28/18 09:08 Consult General Surgery Routine Procedures Performed Operation Date: 11/28/18 08:15 Actual Procedures p Incision and Drainage Perirectal Abcbeau - Dung Oconnell MD Ordered Studies 11/27/18 23:22 CT abd pelvis IV con only Urgent CT head/brain wo con Urgent 11/28/18 15:10 US venous doppler LE RT Urgent Hospital Course (1) Hyponatremia: Patient with hypo osmolar hyponatremia due to hypovolemia. Sodium is over corrected to 129 from 121 at presentation after a litre of fluids. Received Ddavp 2mcg tid. Appreciate nephrology input and recommendation Sodium is 124 on 11/30 Infusion of normal saline has been started by hay farmer Will check PRP at 3:00 this afternoon and tomorrow Sodium level is normalized IV fluid has been discontinued Sodium level has been stable around 1 33-1 36 (2) Urinary retention: Improving with harris insertion. CT showed thick bladder but no hydronephrosis. Monitor input/output Has UTI secondary to E. coli which is pansensitive We will continue Levaquin for now which will cover right foot cellulitis as well We will keep the Harris in place on discharge (3) Perianal abscess: Has been on daptomycin and Levaquin Status post incision and drainage of the perineal abscess Appreciate surgery input and recommendation Wound culture is growing gram-negative bacilli-sensitivity pending Urine culture is positive for E. coli which is pansensitive Appreciate ID input and recommendation He can be discharged tomorrow as per surgery Will have an outpatient appointment within 1 week with surgeon We will get PT and OT evaluation and possible discharge tomorrow Has a drainage catheter and as per surgery it will be in place on discharge He will have a follow-up appointment with surgery as an outpatient (4) Cellulitis of right lower extremity: Right lower extremity cellulitis seems to be improving We will continue current management as per wound care No spreading cellulitis (5) Atrial fibrillation: Rate is controlled We will continue current medications Has been on Coumadin INR was 3.1 at presentation which was reversed with Kcentra and IV vitamin K INR is 1.6 today-11/30 We will continue Coumadin-INR 1.5 on 12/01 INR is 1.7 on 12/19 (6) Metabolic encephalopathy: Likely secondary to infection due to UTI and/or perianal abscess Also has history of cellulitis in the right foot Clinically stable and seems to be at his baseline His other medical conditions remained stable PT and OT evaluation before discharge Will be transferred to medical floor for continuation of care Will need PT and OT evaluation Likely discharge this afternoon Total Time Total Time Spent Total Time Spent (In Minutes): 35 minutes Total Time Includes: Examination of the Patient, Discharge Planning, Medication Reconciliation and 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 With Other Providers Discharge Plan Discharge Items Patient Disposition: Home - Home Health Services Reason For Visit: CONFUSION, UNABLE TO VOID Discharge Diagnosis: Hyponatremia-Corrected, perianal abscess status post incision and drainage with a drain in situ, atrial fibrillation, urinary retention Condition: Fair Discharge Goals: Decrease discomfort, Improve function, Increase independence and Improve nutritional status Activity: Resume your previous activity Non-emergency contact: Primary Care Provider Call non-emergency contact if: you have any medication questions and your symptoms worsen Follow-up/Referrals: Evans Magaña [Primary Care Provider] - (Please make an appointment with your primary care physician within 1 week) Diet: Regular Addtl Provider Instructions: Continue wound care as per instructions from the surgical team Continue antibiotic for 10 days You will need to have your INR checked on and as per recommendation from the coag clinic Antibiotic may influence your INR results Prescriptions: New potassium chloride [Klor-Con M20] 20 mEq Tablet,Er Particles/Crystals 20 meq PO QAM 30 Days Qty: 30 RF: 0 linezolid 600 mg Tablet 600 mg PO BID 10 Days Qty: 20 RF: 0 levofloxacin 500 mg Tablet 500 mg PO DAILY@1100 10 Days Qty: 10 RF: 0 Lactinex 1 million cell tablet,chewable 2 tab PO BID Qty: 40 RF: 0 Continued atorvastatin 10 mg tablet 10 mg PO DAILY RF: 0 carvedilol [Coreg] 3.125 mg tablet 3.125 mg PO BID RF: 0 levothyroxine 88 mcg capsule 88 mcg PO QAM RF: 0 spironolactone 25 mg tablet 25 mg PO DAILY RF: 0 tamsulosin 0.4 mg Capsule 0.4 mg PO HS Qty: 30 RF: 2 colchicine 0.6 mg 0.6 mg PO BID RF: 0 pantoprazole 40 mg tablet,delayed release (DR/EC) 40 mg PO QAM RF: 0 warfarin [Coumadin] 4 mg Tablet 4 mg PO Q OTHER DAY RF: 0 warfarin [Coumadin] 2 mg Tablet 2 mg PO Q OTHER DAY RF: 0 Stand-Alone Forms: [facility]/Other Patient Handouts: Catheter Bag Urinary Empty Clean, Leg Bag Care Dc Discharge Orders: Discharge Order (Routine); Ordered 12/02/18 Ordered By: Aviva Wood Admission Data Admit Date/Time: 11/28/18 02:56 Attending Provider: Aviva Wood Admit Provider: Orlin Najera Primary Care Provider: Evans Magaña Other Providers: Orlin Najera ; Bill Cota ; Naomi Carbone ; Rao Brandt ; Boone Rowe I ; Lizzette Arguelles ; Reyna Houser ; Jeremiah Borja ; Dung Oconnell Service: Medical Other Interventions: Discharge Summary Assessment (RN) Last Done: 12/02/18 15:56 DC Date/Time DO NOT enter until pt leaves facility: 12/02/18 20:17
== END 2018-12-02 20:17 | disposition home health service (06) | DRG 347 ==
LOC: ED 22:54 → 2E 11-28 02:56 → 3E 11-29 12:44 → 2E 11-29 13:32 → 3E 11-29 13:56

== ENCOUNTER 2019-02-20 22:18 | Inpatient (IN) ==
[2019-02-20] MEDS ORDERED: SODIUM CHLORIDE 0.9% 1000ML 500 ML IV ONE (23:18)
[2019-02-20] MEDS ORDERED: ACETAMINOPHEN 325 MG TAB PO STA (23:20)
[2019-02-20 23:53] LABS: Basophils # (auto) 0.01 K/uL (0-0.2); Basophils % (auto) 0.1 %; Eosinophils # (auto) 0.07 K/uL (0-0.5); Eosinophils % (auto) 0.6 %; Hematocrit (blood only) 38.5 % (42-52); Hemoglobin 12.4 g/dL (14.0-18.0); Immature Granulocytes # (auto) 0.04 K/uL (0.00-0.02); Immature Granulocytes % (auto) 0.3 %; Lymphocytes # (auto) 1.34 K/uL (1.2-3.4); Lymphocytes % (auto) 10.6 %; Mean Corpuscular Hemoglobin 30.6 pg (25-34); Mean Corpuscular Hgb Conc 32.2 g/dL (32-36); Mean Corpuscular Volume 95.1 fL (80-100); Mean Platelet Volume 9.8 fL (7.4-10.4); Monocytes # (auto) 1.21 K/uL (0.11-0.59); Monocytes % (auto) 9.5 %; Neutrophils # (auto) 10.03 K/uL (1.4-6.5); Neutrophils % (auto) 78.9 %; Platelet Count 208 K/uL (130-400); RDW Coefficient of Variation 15.8 % (11.5-14.5); RDW Standard Deviation 55.6 fL (36.4-46.3); Red Blood Count 4.05 M/uL (4.7-6.1)
[2019-02-21 00:09] LABS: Alanine Aminotransferase 21 U/L (12-78); Albumin Level 3.3 gm/dl (3.4-5.0); Aspartate Aminotransferase 24 U/L (15-37); BUN Creatinine Ratio 15.8 (10-20); Bilirubin Direct 0.3 mg/dl (0-0.2); Blood Urea Nitrogen 15 mg/dl (7-18); Carbon Dioxide 27 mmol/L (21-32); Chloride 100 mmol/L (98-107); Est GFR (African American) 90.9; Est GFR (Non-African American) 78.4; Glucose 108 mg/dl (70-99); INR 3.2 (0.9-1.1); Magnesium 1.8 mg/dl (1.8-2.4); Potassium 3.7 mmol/L (3.5-5.1); Prothrombin Time 29.8 Seconds (9.0-12.0); Sodium 135 mmol/L (136-145)
[2019-02-21 00:20] LABS: Alkaline Phosphatase 85 U/L (45-117); Bilirubin,Total 0.7 mg/dl (0.2-1); Total Protein 8.1 gm/dl (6.4-8.2); Troponin I < 0.015 ng/ml (0-0.045)
[2019-02-21] MEDS ORDERED: DAPTOmycin 450 MG in SYRINGE 0 ML IV ONE (00:33)
[2019-02-21] MEDS ORDERED: AZTREONAM 2,000 MG in DEXTROSE 5% 100 ML IV STA (00:33)
[2019-02-21] MEDS ORDERED: POLYETHYLENE (MIRALAX) 17 GM PACK PO PRN (02:20)
[2019-02-21] MEDS ORDERED: ONDANSETRON INJ 2 MG/ML 2 ML VIAL IV PRN (02:20)
[2019-02-21] MEDS ORDERED: NITROGLYCERIN SL 0.4 MG/TAB TAB SL PRN (02:20)
[2019-02-21] MEDS ORDERED: PATIENT'S HEIGHT AND/OR WEIGHT NEEDED SCH (02:45)
[2019-02-21] MEDS ORDERED: AZTREONAM CONSULT ACTIVE PRN (02:47)
[2019-02-21] MEDS ORDERED: DAPTOMYCIN CONSULT ACTIVE PRN (02:58)
[2019-02-21] MEDS: SODIUM CHLORIDE 0.9% 1000ML 1,000 ML IV SCH ×2 (03:45→16:28)
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
[2019-02-21] MEDS: LEVOTHYROXINE SODIUM 88 MCG TABLET PO SCH (06:09)
--- NOTE | 2019-02-21 06:10 | XRay Report ---
XR chest 1V portable HISTORY: 78 years-old Male Fever, sepsis acute sepsis with fever COMPARISON: Chest radiograph 12/06/2018 TECHNIQUE: Portable AP view of the chest FINDINGS: Cardiac silhouette is enlarged, unchanged. Calcified plaque of the thoracic aortic arch. Mild chronic interstitial coarsening of the lung bases. No pneumothorax, pleural effusion, overt pulmonary edema or new focal airspace consolidation. Degenerative changes of the shoulders and spine. IMPRESSION: No acute process. The above report was generated using voice recognition software. It may contain grammatical, syntax o r spelling errors. Electronically signed by: Nolberto Mohan M.D. 02/21/2019 6:08 AM
[2019-02-21 06:28] LABS: Prothrombin Time 28.2 Seconds (9.0-12.0)
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
[2019-02-21 06:53] LABS: Appearance Urine Clear (Clear); Bacteria Urine Automated Negative (Negative); Bilirubin Urine Negative (Negative); Blood Urine Negative (Negative); Color Urine Yellow; Epithelial Cell Urine Auto >30 /lpf (0-5); Glucose Urine UA Negative (Negative); Ketones Urine Negative (Negative); Leukocyte Esterase Urine Negative (Negative); Nitrite Urine Negative (Negative); Protein Urine 1+ (Negative); RBC Urine Automated 0-4 /hpf (0-4); Specific Gravity Urine 1.022 (1.000-1.030); Urobilinogen Urine Negative (Negative); pH Urine 5.5 (4.5-7.5)
[2019-02-21] MEDS: SPIRONOLACTONE 25 MG TAB PO SCH ×2 (07:41→16:30)
[2019-02-21] MEDS: PANTOprazole 40 MG TAB PO SCH (07:42)
[2019-02-21] MEDS: DOCUSATE SODIUM 100 MG CAP PO SCH ×2 (07:42→20:30)
[2019-02-21] MEDS: LACTOBACILLUS ACIDOPHILUS (FLORANEX) TAB PO SCH ×3 (07:42→16:30)
[2019-02-21] MEDS: CARVEDILOL 3.125 MG TAB PO SCH ×2 (07:43→16:29)
[2019-02-21] MEDS: POTASSIUM CHLORIDE 10 MEQ TABCR PO SCH (07:43)
[2019-02-21] MEDS: AZTREONAM 2,000 MG in DEXTROSE 5% 100 ML IV SCH ×2 (07:49→16:31)
[2019-02-21] MEDS ORDERED: DAPTOmycin 500 MG VIAL IV SCH (09:00)
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
[2019-02-21] MEDS: DIGOXIN 0.125 MG TAB PO SCH ×2 (16:29→17:30)
--- NOTE | 2019-02-21 19:41 | 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 Note ---
Date of Service: February 21, 2019 Admitted early this morning for recurrent perirectal abscess. Rechecked this afternoon around 1600. Moderately confused, comfortable. Tmax 37.8 last evening. Lungs- clear Heart- irregular Abd- +BS, soft, nontender Seen by Dr. Oconnell for surgical consultation. Conservative management recommended at this time. Continue IV antibiotics. Consider CT drainage. VTE prophylaxis: On warfarin for AF. INR today = 3. Continue to hold warfarin in case any invasive procedures are necessary. Tried to reach son Jaret to give him an update. He was not available, but spoke with [id number]. My contact information was provided.
[2019-02-21] MEDS: ACETAMINOPHEN 325 MG TAB PO PRN (20:30)
[2019-02-22] MEDS ORDERED: DAPTOmycin 400 MG in SYRINGE 0 ML IV SCH
[2019-02-22] MEDS: AZTREONAM 2,000 MG in DEXTROSE 5% 100 ML IV SCH ×3 (00:44→16:19)
[2019-02-22] MEDS: DAPTOmycin 300 MG in SYRINGE 0 ML IV SCH (00:44)
[2019-02-22] MEDS: SODIUM CHLORIDE 0.9% 1000ML 1,000 ML IV SCH ×2 (03:15→16:17)
[2019-02-22 05:49] LABS: Basophils # (auto) 0.01 K/uL (0-0.2); Basophils % (auto) 0.1 %; Eosinophils # (auto) 0.17 K/uL (0-0.5); Eosinophils % (auto) 1.6 %; Hematocrit (blood only) 33.6 % (42-52); Hemoglobin 10.7 g/dL (14.0-18.0); Immature Granulocytes # (auto) 0.02 K/uL (0.00-0.02); Immature Granulocytes % (auto) 0.2 %; Lymphocytes # (auto) 1.58 K/uL (1.2-3.4); Lymphocytes % (auto) 14.5 %; Mean Corpuscular Hemoglobin 30.6 pg (25-34); Mean Corpuscular Hgb Conc 31.8 g/dL (32-36); Mean Platelet Volume 9.6 fL (7.4-10.4); Monocytes # (auto) 1.12 K/uL (0.11-0.59); Monocytes % (auto) 10.3 %; Neutrophils # (auto) 7.96 K/uL (1.4-6.5); Neutrophils % (auto) 73.3 %; Platelet Count 210 K/uL (130-400); RDW Coefficient of Variation 15.8 % (11.5-14.5); RDW Standard Deviation 55.2 fL (36.4-46.3); White Blood Count 10.86 K/uL (4.8-10.8)
[2019-02-22 06:04] LABS: BUN Creatinine Ratio 14.5 (10-20); Creatinine Clr Calc Pharmacy 76.3 ml/min; Est GFR (African American) 102.2; Est GFR (Non-African American) 88.1; Magnesium 1.8 mg/dl (1.8-2.4); Potassium 3.6 mmol/L (3.5-5.1)
[2019-02-22 06:34] LABS: INR 1.9 (0.9-1.1); Prothrombin Time 18.8 Seconds (9.0-12.0)
[2019-02-22] MEDS: LEVOTHYROXINE SODIUM 88 MCG TABLET PO SCH (06:38)
[2019-02-22] MEDS: LACTOBACILLUS ACIDOPHILUS (FLORANEX) TAB PO SCH ×3 (07:58→16:20)
[2019-02-22] MEDS: POTASSIUM CHLORIDE 10 MEQ TABCR PO SCH (07:58)
[2019-02-22] MEDS: SPIRONOLACTONE 25 MG TAB PO SCH ×2 (07:58→16:20)
[2019-02-22] MEDS: PANTOprazole 40 MG TAB PO SCH (07:58)
[2019-02-22] MEDS: CARVEDILOL 3.125 MG TAB PO SCH ×4 (07:59→17:53)
[2019-02-22] MEDS: DOCUSATE SODIUM 100 MG CAP PO SCH ×2 (08:06→20:00)
--- NOTE | 2019-02-22 11:48 | Surgery Progress Note ---
Date of Service February 22, 2019 Assessment & Plan (1) Abdominal pain: There is a very small abscess to the right of the rectum at the distal tip of the coccyx. Today looking much better, vitals stable, afebrile, and leukocytosis improved. Abdominal pain improving. Would continue with IV antibiotics for now. Will hold of on IR drainage as he is clinically improving. Continue current medical management Dr. whitney has seen and examined pt, agrees with above. Supervising Physician Co-Signing Physician Notes I interviewed and examined this patient I agree with the above note. He appears much better. Would continue with antibiotics. Subjective feeling better today complaint of lower extremity pain below his knees rather than abdominal pain abdominal pain still present but much better than yesterday + bowel function no n/v Physical Exam Constitutional: WD/WN, vitals as above no acute distress Gastrointestinal (Abdomen): Inspection/Auscultation: abdomen normal to inspection; abdomen not distended Percussion/Palpation: abdomen soft; abdomen nontender, no guarding and abdomen not rigid Skin: no rashes, warm and dry Psychiatric: A+Ox3, euthymic affect Results & Data Vital Signs (Past 12 Hours) Vital Signs Temp Pulse Pulse Resp BP BP Pulse Ox 02/22/19 11:34 36.5 C 74 20 136/81 96 02/22/19 07:32 36.4 C L 73 18 156/84 H 96 02/22/19 07:09 85 02/22/19 02:53 37.1 C 84 20 140/97 96 02/22/19 01:20 EST 83 Laboratory Results 02/22/19 02/22/19 02/22/19 Range/Units 05:11 05:11 05:11 WBC 10.86 H (4.8-10.8) K/uL RBC 3.50 L (4.7-6.1) M/uL Hgb 10.7 L (14.0-18.0) g/dL Hct 33.6 L (42-52) % MCV 96.0 (80-100) fL MCH 30.6 (25-34) pg MCHC 31.8 L (32-36) g/dL RDW Std Deviation 55.2 H (36.4-46.3) fL RDW Coeff of Luci 15.8 H (11.5-14.5) % Plt Count 210 (130-400) K/uL MPV 9.6 (7.4-10.4) fL Immature Gran % (Auto) 0.2 % Neut % (Auto) 73.3 % Lymph % (Auto) 14.5 % [place] % (Auto) 10.3 % Eos % (Auto) 1.6 % Baso % (Auto) 0.1 % Immature Gran # (Auto) 0.02 (0.00-0.02) K/uL Neut # (Auto) 7.96 H (1.4-6.5) K/uL Lymph # (Auto) 1.58 (1.2-3.4) K/uL [place] # (Auto) 1.12 H (0.11-0.59) K/uL Eos # (Auto) 0.17 (0-0.5) K/uL Baso # (Auto) 0.01 (0-0.2) K/uL PT 18.8 H (9.0-12.0) Seconds INR 1.9 H (0.9-1.1) Sodium 136 (136-145) mmol/L Potassium 3.6 (3.5-5.1) mmol/L Chloride 103 (98-107) mmol/L Carbon Dioxide 26 (21-32) mmol/L Anion Gap 7.0 (3-11) BUN 11 (7-18) mg/dl Creatinine 0.77 Est Cr Clr Drug Dosing 76.3 Est GFR ( Amer) 102.2 Est GFR (Non-Af Amer) 88.1 BUN/Creatinine Ratio 14.5 (10-20) Glucose 94 (70-99) mg/dl Calcium 9.0 (8.5-10.1) mg/dl Magnesium 1.8 (1.8-2.4) mg/dl Troponin I (0-0.045) ng/ml 02/22/19 02/21/19 Range/Units 05:11 16:52 WBC (4.8-10.8) K/uL RBC (4.7-6.1) M/uL Hgb (14.0-18.0) g/dL Hct (42-52) % MCV (80-100) fL MCH (25-34) pg MCHC (32-36) g/dL RDW Std Deviation (36.4-46.3) fL RDW Coeff of Luci (11.5-14.5) % Plt Count (130-400) K/uL MPV (7.4-10.4) fL Immature Gran % (Auto) % Neut % (Auto) % Lymph % (Auto) % [place] % (Auto) % Eos % (Auto) % Baso % (Auto) % Immature Gran # (Auto) (0.00-0.02) K/uL Neut # (Auto) (1.4-6.5) K/uL Lymph # (Auto) (1.2-3.4) K/uL [place] # (Auto) (0.11-0.59) K/uL Eos # (Auto) (0-0.5) K/uL Baso # (Auto) (0-0.2) K/uL PT (9.0-12.0) Seconds INR (0.9-1.1) Sodium (136-145) mmol/L Potassium (3.5-5.1) mmol/L Chloride (98-107) mmol/L Carbon Dioxide (21-32) mmol/L Anion Gap (3-11) BUN (7-18) mg/dl Creatinine Cancelled Est Cr Clr Drug Dosing Cancelled Est GFR ( Amer) Cancelled Est GFR (Non-Af Amer) Cancelled BUN/Creatinine Ratio (10-20) Glucose (70-99) mg/dl Calcium (8.5-10.1) mg/dl Magnesium (1.8-2.4) mg/dl Troponin I < 0.015 (0-0.045) ng/ml (1) Abdominal pain Abdominal location: unspecified location Qualified Code(s): R10.9 - Unspecified abdominal pain
[2019-02-22] MEDS: DIGOXIN 0.125 MG TAB PO SCH ×2 (16:20→17:54)
--- NOTE | 2019-02-22 18:24 | Hospitalist Progress Note ---
Date of Service February 22, 2019 Assessment & Plan (1) Perirectal abscess: Persistent perirectal abscess, measuring 2.3 x 1.[address] 02/16. Size improved compared to 11/28/18. General Surgery consulted. Conservative management with IV antibiotics recommended at this time. Continue IV daptomycin and aztreonam. (2) Sepsis: Met criteria for severe sepsis at time of admission per current [facility] criteria: HR > 90 WBC > 12,000 Altered mental status / encephalopathy. Source = perirectal abscess. Blood cultures obtained. Received broad spectrum antibiotic coverage. Serum lacate 1.2. Systolic BP > 90. (3) Altered mental status: Confusion worse than baseline at time of admission. Probable encephalopathy secondary to infection. (4) CAD (coronary artery disease): No anginal symptoms. Continue warfarin, carvedilol. (5) Atrial fibrillation: Rate controlled on carvedilol and digoxin. Warfarin was held in case surgical intervention necessary- will resume. (6) HTN (hypertension): Continue carvedilol. (7) Hyponatremia: History of hyponatremia. Serum sodium 136. Follow. (8) Dyslipidemia: Hold statin while receiving daptomycin. (9) Hypothyroidism: Continue levothyroxine. (10) Dementia: More confused than baseline at time of admission. Probable delirium / encephalopathy secondary to infection. Mental status improved. Continue to monitor for delirium. (11) DVT prophylaxis: On warfarin with therapeutic INR at time of admission. Warfarin was held for possible procedures, now being resumed. SQ heparin pending therapeutic INR. (12) Discharge planning issues: Anticipated discharge to home. Subjective Recheck for multiple problems. Patient seen in their room around 1140. Doing well and has no complaints. No fever. Denies abdominal or perirectal pain. No diarrhea, melena, hematochezia. Review of Systems: Constitutional- no fever. Cardiac- no chest pain. Pulmonary- no cough or SOB. GI- as noted above. - no urinary symptoms. Otherwise, as noted above. Physical Exam Constitutional: no acute distress Respiratory: no respiratory distress Auscultation: lungs clear to auscultation bilaterally Cardiovascular: Rate/Rhythm: + irregularly irregular Heart Sounds: no gallop, no murmur and no cardiac rub Vessels: no JVD Extremities: + edema (chronic appearing lower extremity edema); no calf tenderness Gastrointestinal (Abdomen): normal bowel sounds, soft, nontender, no hepatosp lenomegaly Skin: + rash (chronic venous stasis changes lower extremities) Psychiatric: Orientation: alert; + not oriented x 3 (+ person, + [facility], + year "", - day wk, - president) Results & Data Vital Signs (Past 12 Hours) Vital Signs Temp Pulse Pulse Resp BP BP Pulse Ox 02/22/19 17:54 94 H 02/22/19 15:14 37.1 C 78 76 18 153/85 H 91 02/22/19 11:34 36.5 C 74 20 136/81 96 02/22/19 07:32 36.4 C L 73 18 156/84 H 96 02/22/19 07:09 85 Laboratory Results Laboratory Results - last 24 hr 02/22/19 02/22/19 02/22/19 05:11 05:11 05:11 WBC 10.86 H RBC 3.50 L Hgb 10.7 L Hct 33.6 L MCV 96.0 MCH 30.6 MCHC 31.8 L RDW Std Deviation 55.2 H RDW Coeff of Luci 15.8 H Plt Count 210 MPV 9.6 Immature Gran % (Auto) 0.2 Neut % (Auto) 73.3 Lymph % (Auto) 14.5 [place] % (Auto) 10.3 Eos % (Auto) 1.6 Baso % (Auto) 0.1 Immature Gran # (Auto) 0.02 Neut # (Auto) 7.96 H Lymph # (Auto) 1.58 [place] # (Auto) 1.12 H Eos # (Auto) 0.17 Baso # (Auto) 0.01 PT 18.8 H INR 1.9 H Sodium Potassium Chloride Carbon Dioxide Anion Gap BUN Creatinine Cancelled Est Cr Clr Drug Dosing Cancelled Est GFR ( Amer) Cancelled Est GFR (Non-Af Amer) Cancelled BUN/Creatinine Ratio Glucose Calcium Magnesium 02/22/19 05:11 WBC RBC Hgb Hct MCV MCH MCHC RDW Std Deviation RDW Coeff of Luci Plt Count MPV Immature Gran % (Auto) Neut % (Auto) Lymph % (Auto) [place] % (Auto) Eos % (Auto) Baso % (Auto) Immature Gran # (Auto) Neut # (Auto) Lymph # (Auto) [place] # (Auto) Eos # (Auto) Baso # (Auto) PT INR Sodium 136 Potassium 3.6 Chloride 103 Carbon Dioxide 26 Anion Gap 7.0 BUN 11 Creatinine 0.77 Est Cr Clr Drug Dosing 76.3 Est GFR ( Amer) 102.2 Est GFR (Non-Af Amer) 88.1 BUN/Creatinine Ratio 14.5 Glucose 94 Calcium 9.0 Magnesium 1.8 Microbiology 02/21/19 06:28 Throat Throat Culture - Preliminary Heavy normal cosmo present, Final report to follow. 02/21/19 00:22 Blood Aerobic Blood Culture - Preliminary No growth in Aerobic bottle after 24 hours. 02/21/19 00:22 Blood Anaerobic Blood Culture - Preliminary No growth in Anaerobic bottle after 24 hours. 02/20/19 23:42 Blood Aerobic Blood Culture - Preliminary No growth in Aerobic bottle after 24 hours. 02/20/19 23:42 Blood Anaerobic Blood Culture - Preliminary No growth in Anaerobic bottle after 24 hours. (1) Sepsis Sepsis acute organ dysfunction status: without acute organ dysfunction Sepsis type: sepsis due to unspecified organism Qualified Code(s): A41.9 - Sepsis, unspecified organism (2) CAD (coronary artery disease) Associated angina: with stable angina Coronary Disease-Associated Artery/Lesion type: [place] artery [place] vs. transplanted heart: [place] heart Qualified Code(s): I25.118 - Atherosclerotic heart disease of [place] coronary artery with other forms of angina pectoris (3) Atrial fibrillation Atrial fibrillation type: paroxysmal Qualified Code(s): I48.0 - Paroxysmal atrial fibrillation (4) HTN (hypertension) Hypertension type: unspecified Qualified Code(s): I10 - Essential (primary) hypertension (5) Hypothyroidism Hypothyroidism type: acquired Qualified Code(s): E03.9 - Hypothyroidism, unspecified
[2019-02-22] MEDS ORDERED: WARFARIN SOD 4 MG TAB PO ONE (18:45)
[2019-02-22] MEDS: HEPARIN SOD 5,000 UNIT/0.5 ML VIAL SQ SCH (20:00)
[2019-02-23] MEDS: AZTREONAM 2,000 MG in DEXTROSE 5% 100 ML IV SCH ×3 (00:12→17:03)
[2019-02-23] MEDS: DAPTOmycin 300 MG in SYRINGE 0 ML IV SCH (00:12)
[2019-02-23] MEDS: SODIUM CHLORIDE 0.9% 1000ML 1,000 ML IV SCH ×2 (05:18→18:53)
[2019-02-23] MEDS: LEVOTHYROXINE SODIUM 88 MCG TABLET PO SCH (05:19)
[2019-02-23 06:58] LABS: Hematocrit (blood only) 30.3 % (42-52); Hemoglobin 9.9 g/dL (14.0-18.0); Mean Corpuscular Hemoglobin 30.7 pg (25-34); Mean Corpuscular Hgb Conc 32.7 g/dL (32-36); Mean Corpuscular Volume 93.8 fL (80-100); Mean Platelet Volume 9.2 fL (7.4-10.4); Platelet Count 197 K/uL (130-400); RDW Coefficient of Variation 15.4 % (11.5-14.5); RDW Standard Deviation 53.1 fL (36.4-46.3); Red Blood Count 3.23 M/uL (4.7-6.1); White Blood Count 9.58 K/uL (4.8-10.8)
[2019-02-23 07:09] LABS: INR 1.5 (0.9-1.1); Prothrombin Time 15.4 Seconds (9.0-12.0)
[2019-02-23 07:34] LABS: BUN Creatinine Ratio 14.1 (10-20); Calcium 8.5 mg/dl (8.5-10.1); Creatinine Clr Calc Pharmacy 80.5 ml/min; Est GFR (African American) 104.4; Est GFR (Non-African American) 90.1; Potassium 3.6 mmol/L (3.5-5.1)
[2019-02-23] MEDS: HEPARIN SOD 5,000 UNIT/0.5 ML VIAL SQ SCH ×2 (07:48→20:47)
[2019-02-23] MEDS: LACTOBACILLUS ACIDOPHILUS (FLORANEX) TAB PO SCH ×3 (07:48→17:03)
[2019-02-23] MEDS: SPIRONOLACTONE 25 MG TAB PO SCH ×2 (07:48→17:02)
[2019-02-23] MEDS: DOCUSATE SODIUM 100 MG CAP PO SCH ×2 (07:48→20:50)
[2019-02-23] MEDS: CARVEDILOL 3.125 MG TAB PO SCH ×2 (07:48→17:03)
[2019-02-23] MEDS: PANTOprazole 40 MG TAB PO SCH (07:49)
[2019-02-23] MEDS: POTASSIUM CHLORIDE 10 MEQ TABCR PO SCH (07:49)
--- NOTE | 2019-02-23 09:51 | Surgery Progress Note ---
Date of Service February 23, 2019 Assessment & Plan (1) Abdominal pain: There is a very small abscess to the right of the rectum at the distal tip of the coccyx. History of recurrent perirectal abscesses. vitals stable, afebrile, and leukocytosis improved. Abdominal pain resolved. Will hold of on IR drainage as he is clinically improving. Consider transition to oral abx. Continue current medical management Dr. whitney has seen and examined pt, agrees with above. Supervising Physician Co-Signing Physician Notes I interviewed and examined this patient I agree with the above note. His abdominal pain is resolved and he is tolerating a regular diet. Would continue with p.o. antibiotics postoperatively. If his condition changes he can return. Subjective feeling good had formed bowel movement no abdominal pain tolerating diet ready to go home Physical Exam Constitutional: WD/WN, vitals as above not ill appearing Skin: no rashes, warm and dry Psychiatric: A+Ox3, euthymic affect Results & Data Vital Signs (Past 12 Hours) Vital Signs Temp Pulse Pulse Resp BP Pulse Ox 02/23/19 07:23 36.8 C 84 20 129/69 95 02/23/19 03:00 37 C 67 18 138/74 94 02/23/19 00:59 76 02/22/19 23:47 37.5 C 89 20 130/72 96 Laboratory Results 02/23/19 02/23/19 02/23/19 Range/Units 06:27 06:27 06:27 WBC 9.58 (4.8-10.8) K/uL RBC 3.23 L (4.7-6.1) M/uL Hgb 9.9 L (14.0-18.0) g/dL Hct 30.3 L (42-52) % MCV 93.8 (80-100) fL MCH 30.7 (25-34) pg MCHC 32.7 (32-36) g/dL RDW Std Deviation 53.1 H (36.4-46.3) fL RDW Coeff of Luci 15.4 H (11.5-14.5) % Plt Count 197 (130-400) K/uL MPV 9.2 (7.4-10.4) fL PT 15.4 H (9.0-12.0) Seconds INR 1.5 H (0.9-1.1) Sodium 137 (136-145) mmol/L Potassium 3.6 (3.5-5.1) mmol/L Chloride 104 (98-107) mmol/L Carbon Dioxide 25 (21-32) mmol/L Anion Gap 8.0 (3-11) BUN 10 (7-18) mg/dl Creatinine 0.73 (0.6-1.4) mg/dl Est Cr Clr Drug Dosing 80.5 ml/min Est GFR ( Amer) 104.4 Est GFR (Non-Af Amer) 90.1 BUN/Creatinine Ratio 14.1 (10-20) Glucose 88 (70-99) mg/dl Calcium 8.5 (8.5-10.1) mg/dl (1) Abdominal pain Abdominal location: unspecified location Qualified Code(s): R10.9 - Unspecified abdominal pain
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
[2019-02-23] MEDS: DIGOXIN 0.125 MG TAB PO SCH (16:28)
[2019-02-23] MEDS: WARFARIN SOD 2 MG TAB PO SCH (16:29)
--- NOTE | 2019-02-23 19:08 | Hospitalist Progress Note ---
Date of Service February 23, 2019 Assessment & Plan (1) Perirectal abscess: Persistent perirectal abscess, measuring 2.3 x 1.[address] 02/16. Size improved compared to 11/28/18. General Surgery consulted. Conservative management with antibiotics recommended at this time. Received IV daptomycin and aztreonam. ID consulted. (2) Sepsis: Met criteria for severe sepsis at time of admission per current [facility] criteria: HR > 90 WBC > 12,000 Altered mental status / encephalopathy. Source = perirectal abscess. Blood cultures obtained. Received broad spectrum antibiotic coverage. Serum lactate 1.2. Systolic BP > 90. (3) Altered mental status: Confusion worse than baseline at time of admission. Probable metabolic encephalopathy secondary to infection. (4) CAD (coronary artery disease): No anginal symptoms. Continue warfarin, carvedilol. (5) Atrial fibrillation: Rate controlled on carvedilol and digoxin. Warfarin was held in case surgical intervention necessary- will resume. (6) HTN (hypertension): Continue carvedilol. (7) Hyponatremia: History of hyponatremia. Serum sodium 137. Follow. (8) Dyslipidemia: Hold statin while receiving daptomycin. (9) Hypothyroidism: Continue levothyroxine. (10) Dementia: More confused than baseline at time of admission. Probable delirium / encephalopathy secondary to infection. Mental status improved. Continue to monitor for delirium. (11) DVT prophylaxis: On warfarin with therapeutic INR at time of admission. Warfarin was held for possible procedures, now being resumed. SQ heparin pending therapeutic INR. (12) Discharge planning issues: To be determined. Subjective Recheck for multiple problems. Patient seen in their room around 1520. Doing well. No problems or concerns. No fever. Denies abdominal or perirectal pain. No diarrhea, melena, hematochezia. Review of Systems: Constitutional- no fever. Cardiac- no chest pain. Pulmonary- no cough or SOB. GI- as noted above. - no urinary symptoms. Otherwise, as noted above. Physical Exam Constitutional: no acute distress Respiratory: no respiratory distress Auscultation: lungs clear to auscultat ion bilaterally Cardiovascular: Rate/Rhythm: + irregularly irregular Heart Sounds: no gallop, no murmur and no cardiac rub Vessels: no JVD Extremities: + edema (chronic appearing lower extremity edema); no calf tenderness Gastrointestinal (Abdomen): normal bowel sounds, soft, nontender, no hepatosplenomegaly Skin: + rash (chronic venous stasis changes lower extremities) Psychiatric: Orientation: alert; + not oriented x 3 (moderate confusion) Results & Data Vital Signs (Past 12 Hours) Vital Signs Temp Pulse Resp BP Pulse Ox 02/23/19 15:01 37.1 C 82 20 160/85 H 99 02/23/19 11:43 37.1 C 85 18 149/73 H 95 02/23/19 07:23 36.8 C 84 20 129/69 95 Laboratory Results 02/23/19 06:27 02/23/19 06:27 Microbiology 02/21/19 06:28 Throat Throat Culture - Final Heavy normal cosmo. 02/21/19 00:22 Blood Aerobic Blood Culture - Preliminary No growth in Aerobic bottle after 48 hours. 02/21/19 00:22 Blood Anaerobic Blood Culture - Preliminary No growth in Anaerobic bottle after 48 hours. 02/20/19 23:42 Blood Aerobic Blood Culture - Preliminary No growth in Aerobic bottle after 48 hours. 02/20/19 23:42 Blood Anaerobic Blood Culture - Preliminary No growth in Anaerobic bottle after 48 hours. (1) Sepsis Sepsis acute organ dysfunction status: without acute organ dysfunction Sepsis type: sepsis due to unspecified organism Qualified Code(s): A41.9 - Sepsis, unspecified organism (2) CAD (coronary artery disease) Associated angina: with stable angina Coronary Disease-Associated Artery/Lesion type: [place] artery [place] vs. transplanted heart: [place] heart Qualified Code(s): I25.118 - Atherosclerotic heart disease of [place] coronary artery with other forms of angina pectoris (3) Atrial fibrillation Atrial fibrillation type: paroxysmal Qualified Code(s): I48.0 - Paroxysmal atrial fibrillation (4) HTN (hypertension) Hypertension type: unspecified Qualified Code(s): I10 - Essential (primary) hypertension (5) Hypothyroidism Hypothyroidism type: acquired Qualified Code(s): E03.9 - Hypothyroidism, unspecified
[2019-02-23] MEDS: LINEZOLID 600 MG TAB PO SCH (22:36)
[2019-02-24] MEDS: AZTREONAM 2,000 MG in DEXTROSE 5% 100 ML IV SCH ×3 (00:18→16:29)
[2019-02-24] MEDS ORDERED: DAPTOmycin 250 MG in SYRINGE 0 ML IV SCH (01:00)
[2019-02-24] MEDS: SODIUM CHLORIDE 0.9% 1000ML 1,000 ML IV SCH ×2 (05:32→20:18)
[2019-02-24] MEDS: LEVOTHYROXINE SODIUM 88 MCG TABLET PO SCH (05:32)
[2019-02-24 08:57] LABS: Creatinine Clr Calc Pharmacy 86.4 ml/min; Est GFR (African American) 107.5; Est GFR (Non-African American) 92.8
--- NOTE | 2019-02-24 09:14 | Surgery Progress Note ---
Date of Service February 24, 2019 Assessment & Plan (1) Abdominal pain: There is a very small abscess to the right of the rectum at the distal tip of the coccyx. History of recurrent perirectal abscesses. vitals stable, afebrile, and leukocytosis resolved. Abdominal pain resolved. Will hold of on IR drainage as he is clinically improving. Oral abx for 21 days per ID recs Okay from surgical standpoint for discharge Continue current medical management Dr. whitney has seen and examined pt, agrees with above. Subjective no abdominal pain tolerating regular diet no n/v no fevers + bowel function Physical Exam Constitutional: WD/WN, vitals as above no acute distress Skin: no rashes, warm and dry Psychiatric: Orientation: alert and oriented x 3 Mood: + irritable mood Results & Data Vital Signs (Past 12 Hours) Vital Signs Temp Pulse Pulse Resp BP Pulse Ox 02/24/19 07:54 36.8 C 95 H 20 149/82 H 97 02/24/19 04:00 37.0 C 86 20 125/76 96 02/24/19 01:00 87 02/24/19 00:00 37.2 C 89 20 123/79 95 Laboratory Results 02/24/19 02/24/19 Range/Units 07:57 07:57 PT Cancelled INR Cancelled Creatinine 0.68 (0.6-1.4) mg/dl Est Cr Clr Drug Dosing 86.4 ml/min Est GFR ( Amer) 107.5 Est GFR (Non-Af Amer) 92.8 (1) Abdominal pain Abdominal location: unspecified location Qualified Code(s): R10.9 - Unspecified abdominal pain
[2019-02-24] MEDS: LACTOBACILLUS ACIDOPHILUS (FLORANEX) TAB PO SCH ×3 (09:45→16:29)
[2019-02-24] MEDS: CARVEDILOL 3.125 MG TAB PO SCH ×2 (09:45→16:29)
[2019-02-24] MEDS: SPIRONOLACTONE 25 MG TAB PO SCH ×2 (09:45→16:28)
[2019-02-24] MEDS: HEPARIN SOD 5,000 UNIT/0.5 ML VIAL SQ SCH ×2 (09:46→20:18)
[2019-02-24] MEDS: POTASSIUM CHLORIDE 10 MEQ TABCR PO SCH (09:46)
[2019-02-24] MEDS: DOCUSATE SODIUM 100 MG CAP PO SCH ×2 (09:46→20:18)
[2019-02-24] MEDS: LINEZOLID 600 MG TAB PO SCH ×2 (09:47→20:18)
[2019-02-24] MEDS: PANTOprazole 40 MG TAB PO SCH (09:47)
[2019-02-24] MEDS: ATORVASTATIN 10 MG TAB PO SCH (09:47)
[2019-02-24 10:06] LABS: INR 1.5 (0.9-1.1); Prothrombin Time 15.3 Seconds (9.0-12.0)
--- NOTE | 2019-02-24 12:26 | XRay Report ---
XR shoulder RT min 2V routine CLINICAL HISTORY: right shoulder pain COMPARISON: None. DISCUSSION: No acute fractures or dislocations are visualized. There are labral calcifications. There are moderate osteoarthritic changes. There are no visible periarticular calcifications. IMPRESSION: 1. Moderate osteoarthritic change within the glenohumeral joint 2. No acute fractures Electronically signed by: Keaton Ruiz M.D. 02/24/2019 12:25 PM
[2019-02-24] MEDS: WARFARIN SOD 2 MG TAB PO SCH (16:28)
[2019-02-24] MEDS: DIGOXIN 0.125 MG TAB PO SCH (16:28)
--- NOTE | 2019-02-24 17:00 | Consultation Report ---
DATE OF CONSULTATION: 02/24/2019 CHIEF COMPLAINT: Right shoulder pain. SUBJECTIVE: Dr. Du asked if Dr. Caba could see this pleasant 78-year-old gentleman with complaints of right shoulder pain over the last 24 hours. The patient is currently being treated for sepsis and a perirectal abscess. ID is recommending treatment with p.o. Linezolid and levofloxacin. Dr. Du wanted Orthopedics to evaluate the patient to verify Levaquin would be okay in the setting of possible tendinopathy, rotator cuff issues due to his acute onset of right shoulder pain. In speaking to the patient today, he was somewhat confused; however, he stated he began having shoulder pain recently over the night. He denies any injury. He states it hurts on the top of his shoulder. He denies any numbness, tingling or radiation down his arm. He denies any neck pain. He states that he is ambidextrous and he can use either hand to write or eat. PAST MEDICAL HISTORY: The patient's past medical history is significant for the recurrent perirectal abscess as well as sepsis and altered mental status, coronary artery disease, atrial fibrillation, hypertension, hyponatremia, dyslipidemia, hypothyroidism, dementia. PAST SURGICAL HISTORY: Significant for cataract surgery, colon resection, cardiac stent placement. ALLERGIES: AMOXICILLIN, CEPHALEXIN, CIPRO of CLAVULANIC ACID, PENICILLIN, MORPHINE AND BACTRIM. CURRENT MEDICATIONS: Include IV fluids, sodium chloride, aztreonam in dextrose IV fluid, atorvastatin, calcium, carvedilol, digoxin, Protonix, Aldactone, Colace, Synthroid, Klor-Con, Floranex, heparin sodium, Coumadin, Zyvox, Nitrostat, Zofran, Tylenol, MiraLax. FAMILY HISTORY: Cancer, diabetes, gallbladder disease, heart disease, kidney disease, kidney stones, lung disease. SOCIAL HISTORY: Chews tobacco, nonsmoker, no alcohol use or drug use. Lives with his son. REVIEW OF SYSTEMS: When asking the patient today, he denied chest pain, shortness of breath. He states he has shoulder pain. He denies any chills or sweats. He denies any neck pain, numbness, tingling or radiation down his right arm. He denies any other aches and pains. Please see medical records for further review of systems. PHYSICAL EXAMINATION: FOCUSED PHYSICAL EXAM MUSCULOSKELETAL: Reveals that the patient is sitting up in his bedside chair, IV in place. The patient was somewhat confused and demented, able to participate in some conversation but limited following of commands and instructions. He admitted to right shoulder pain. He was able to rotate, flex and extend his neck during normal conversation and exam without pain. Skin to his right shoulder revealed a small scab anteriorly. No redness, no warmth, no swelling. The patient does have some bruising noted more distally around his hand more than likely from IV placement or prior sticks. His current IV is on his left arm. The patient was quite tender to palpation over the top of his shoulder, particularly his AC joint. Otherwise, no specific point tender areas. The patient was not able to follow commands for active motion of his shoulder. He did tolerate active assistive motion of his right shoulder to 90 degrees of flexion, 90 degrees of abduction, 30 degrees cross body, 30 degrees external rotation. He resisted any further motion due to pain. He had full active assisted motion of his elbow, forearm and hand. Unable to have the patient follow instructions for rotator cuff strength testing. He did have 5/5 security coordinator strength. The patient had a positive Manjarrez with grimacing on functional testing. The patient was neurovascularly intact to the right upper extremity with intact sensation, palpable radial pulse, brisk capillary refill. DIAGNOSTIC STUDIES: X-rays of the patient's right shoulder, 2 views performed and reviewed by [facility] radiologist, x-ray showed no acute fracture or dislocation. There are moderate osteoarthritic changes noted at the glenohumeral joint with labral calcifications. No visible periarticular calcifications. IMPRESSION: 1. Acute onset right shoulder pain without injury. 2. Moderate glenohumeral osteoarthritis, right shoulder. 3. Right perirectal abscess and sepsis, being treated with antibiotics. 4. Dementia. PLAN: I did speak to Dr. Caba in regards to my physical exam and findings. Dr. Caba agreed that the patient should be treated conservatively. We are not recommending a cortisone injection into the shoulder at this time. We are also not recommending an MRI, more than likely with his age and exam findings, he will have degenerative changes noted of his rotator cuff. We do not feel there are contraindications for treatment per ID recommendations with Levaquin. We would be glad to follow up with the patient in 2-4 weeks for reevaluation of the right shoulder and at that point discuss further treatment if indicated. We are recommending treatment to consist currently of ice, gentle active and active assistive range of motion, oral pain medications such as Tylenol or something stronger per Medicine at their discretion. Our office phone number is [phone] to schedule the appointment with Dr Caba and to call if you have any further problems, questions, or concerns. Attending: I saw and examined the patient and agree with the above note. No signs of septic arthritis of the shoulder. No contraindication for fluoroquinolones from the standpoint of his R shoulder. MTDD
--- NOTE | 2019-02-24 23:25 | Hospitalist Progress Note ---
Date of Service February 24, 2019 Assessment & Plan (1) Perirectal abscess: Persistent perirectal abscess, measuring 2.3 x 1.[address] 02/16. Size improved compared to 11/28/18. General Surgery consulted. Conservative management with antibiotics recommended at this time. Received IV daptomycin and aztreonam. ID consulted. Transition to oral therapy with linezolid and levofloxacin recommended. Checked with Case Management. Linezolid should be covered by his insurance. Will hold levofloxacin pending Ortho evaluation of shoulder pain. (2) Sepsis: Met criteria for severe sepsis at time of admission per current CMS criteria: HR > 90 WBC > 12,000 Altered mental status / encephalopathy. Source = perirectal abscess. Blood cultures obtained. Received broad spectrum antibiotic coverage. Serum lactate 1.2. Systolic BP > 90. (3) Altered mental status: Confusion worse than baseline at time of admission. Probable metabolic encephalopathy secondary to infection. (4) CAD (coronary artery disease): No anginal symptoms. Continue warfarin, carvedilol. (5) Atrial fibrillation: Rate controlled on carvedilol and digoxin. Warfarin was held in case surgical intervention necessary- resumed. (6) HTN (hypertension): Continue carvedilol. (7) Hyponatremia: History of hyponatremia. Serum sodium 137 on 02/23. Follow. (8) Dyslipidemia: Hold statin while receiving daptomycin. (9) Hypothyroidism: Continue levothyroxine. (10) Dementia: More confused than baseline at time of admission. Probable delirium / encephalopathy secondary to infection. Mental status improved. Continue to monitor for delirium. (11) Shoulder pain: Patient complained of severe right shoulder pain. No trauma, but felt something pop while in bed. Plain films showed arthritic changes, no fracture or dislocation. Ortho consulted. (12) DVT prophylaxis: On warfarin with therapeutic INR at time of admission. Warfarin was held for possible procedures, resumed. SQ heparin pending therapeutic INR. (13) Discharge planning issues: Anticipated discharge to home. Primary Care follow-up with Dr. Still. Jagdish Raygoza given update by phone today. Subjective Recheck for multiple problems. Patient seen in their room around 1040. Complains of right shoulder pain. [place] something "pop" while in bed last night. No other problems or concerns. No fever. Denies abdominal or perirectal pain. No diarrhea, melena, hematochezia. Review of Systems: Constitutional- no fever. Cardiac- no chest pain. Pulmonary- no cough or SOB. GI- as noted above. - no urinary symptoms. Otherwise, as noted above. Physical Exam Constitutional: no acute distress Respiratory: no respiratory distress Auscultation: lungs clear to auscultation bilaterally Cardiovascular: Rate/Rhythm: + irregularly irregular Heart Sounds: no gallop, no murmur and no cardiac rub Vessels: no JVD Extremities: + edema (chronic appearing lower extremity edema); no calf tenderness Gastrointestinal (Abdomen): normal bowel sounds, soft, nontender, no hepatosplenomegaly Musculoskeletal: Extremities: + extremities abnormal to inspection (right shoulder tenderness anteriorly and laterally; no deformity, erythema ) Skin: + rash (chronic venous stasis changes lower extremities) Psychiatric: Orientation: alert; + not oriented x 3 (moderate confusion) Results & Data Vital Signs (Past 12 Hours) Vital Signs Temp Pulse Pulse Resp BP Pulse Ox 02/24/19 20:06 36.9 C 70 20 130/65 95 02/24/19 16:28 103 H 02/24/19 15:04 36.8 C 67 20 117/70 96 02/24/19 11:45 36.7 C 99 H 18 126/74 91 Laboratory Results Laboratory Results - last 24 hr 02/24/19 02/24/19 02/24/19 07:57 07:57 09:45 PT Cancelled 15.3 H INR Cancelled 1.5 H Creatinine 0.68 Est Cr Clr Drug Dosing 86.4 Est GFR ( Amer) 107.5 Est GFR (Non-Af Amer) 92.8 (1) Sepsis Sepsis acute organ dysfunction status: without acute organ dysfunction Sepsis type: sepsis due to unspecified organism Qualified Code(s): A41.9 - Sepsis, unspecified organism (2) CAD (coronary artery disease) Associated angina: with stable angina Coronary Disease-Associated Artery/Lesion type: [place] artery [place] vs. transplanted heart: [place] heart Qualified Code(s): I25.118 - Atherosclerotic heart disease of [place] coronary artery with other forms of angina pectoris (3) Atrial fibrillation Atrial fibrillation type: paroxysmal Qualified Code(s): I48.0 - Paroxysmal atrial fibrillation (4) HTN (hypertension) Hypertension type: unspecified Qualified Code(s): I10 - Essential (primary) hypertension (5) Hypothyroidism Hypothyroidism type: acquired Qualified Code(s): E03.9 - Hypothyroidism, unspecified
[2019-02-25] MEDS: AZTREONAM 2,000 MG in DEXTROSE 5% 100 ML IV SCH ×2 (01:40→09:38)
[2019-02-25] MEDS ORDERED: Nursing to Pharmacy 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 ONE (05:40)
[2019-02-25] MEDS: LEVOTHYROXINE SODIUM 88 MCG TABLET PO SCH (06:00)
[2019-02-25 07:21] LABS: INR 1.6 (0.9-1.1); Prothrombin Time 16.2 Seconds (9.0-12.0)
[2019-02-25] MEDS: CARVEDILOL 3.125 MG TAB PO SCH ×2 (09:37→16:31)
[2019-02-25] MEDS: DOCUSATE SODIUM 100 MG CAP PO SCH ×2 (09:38→21:02)
[2019-02-25] MEDS: SPIRONOLACTONE 25 MG TAB PO SCH ×2 (09:38→16:31)
[2019-02-25] MEDS: LACTOBACILLUS ACIDOPHILUS (FLORANEX) TAB PO SCH ×3 (09:38→16:32)
[2019-02-25] MEDS: LINEZOLID 600 MG TAB PO SCH ×2 (09:39→21:02)
[2019-02-25] MEDS: PANTOprazole 40 MG TAB PO SCH (09:39)
[2019-02-25] MEDS: ATORVASTATIN 10 MG TAB PO SCH (09:39)
[2019-02-25] MEDS: POTASSIUM CHLORIDE 10 MEQ TABCR PO SCH (09:39)
[2019-02-25] MEDS: HEPARIN SOD 5,000 UNIT/0.5 ML VIAL SQ SCH ×2 (09:39→21:02)
[2019-02-25] MEDS: SODIUM CHLORIDE 0.9% 1000ML 1,000 ML IV SCH (09:42)
--- NOTE | 2019-02-25 15:23 | Hospitalist Progress Note ---
Date of Service February 25, 2019 Assessment & Plan (1) Perirectal abscess: Persistent perirectal abscess, measuring 2.3 x 1.[address] 02/16. Size improved compared to 11/28/18. General Surgery consulted. Conservative management with antibiotics recommended at this time. Received IV daptomycin and aztreonam. ID consulted. Transition to oral therapy with linezolid and levofloxacin x 3 weeks recommended. Checked with Case Management. Linezolid should be covered by his insurance. Levofloxacin OK per Ortho. Start levofloxacin with caution- watch for worsening delirium (2) Sepsis: Met criteria for severe sepsis at time of admission per current CMS criteria: HR > 90 WBC > 12,000 Altered mental status / encephalopathy. Source = perirectal abscess. Blood cultures obtained. Received broad spectrum antibiotic coverage. Serum lactate 1.2. Systolic BP > 90. (3) Altered mental status: Confusion worse than baseline at time of admission. Probable metabolic encephalopathy secondary to infection and other factors. Ongoing signs of delirium. No fever. Continue to monitor. Avoid meds with anticholingeric side effects when able. Check dig level in a.m. Mobilize. (4) CAD (coronary artery disease): No anginal symptoms. Continue warfarin, carvedilol. (5) Atrial fibrillation: Rate controlled on carvedilol and digoxin. Warfarin was held in case surgical intervention necessary- resumed. (6) HTN (hypertension): Continue carvedilol. (7) Hyponatremia: History of hyponatremia. Serum sodium 137 on 02/23. Recheck in a.m. (8) Dyslipidemia: Hold statin while receiving daptomycin. (9) Hypothyroidism: Continue levothyroxine. (10) Dementia: More confused than baseline at time of admission. Probable delirium / encephalopathy secondary to infection and other factors. Mental status fluctuating. Continue to monitor for delirium. (11) Shoulder pain: Patient complained of severe right shoulder pain. No trauma, but felt something pop while in bed. Plain films showed arthritic changes, no fracture or dislocation. Ortho consulted. Analgesics PRN- try acetaminophen first. ROM exercises. Outpatient f/u with Ortho for ongoing problems. (12) DVT prophylaxis: On warfarin with therapeutic INR at time of admission. Warfarin was held for possible procedures, resumed. INR today 1.6. SQ heparin pending therapeutic INR. (13) Discharge planning issues: Anticipated discharge to home. Primary Care follow-up with Dr. Still. Son Jaret given update by phone today. He agrees that patient not yet ready for discharge. Subjective Recheck for multiple problems. Patient seen in their room around 1330. Nursing notes increased confusion. 2-person assist. Right shoulder pain persists, but better. No other problems or concerns. No fever. Denies abdominal or perirectal pain. No reported diarrhea, melena, hematochezia. Review of Systems: Constitutional- no fever. Cardiac- no chest pain. Pulmonary- no cough or SOB. GI- as noted above. - no urinary symptoms. Otherwise, as noted above. Physical Exam Constitutional: no acute distress Respiratory: no respiratory distress Auscultation: lungs clear to auscultation bilaterally Cardiovascular: Rate/Rhythm: + irregularly irregular Heart Sounds: no gallop, no murmur and no cardiac rub Vessels: no JVD Extremities: + edema (chronic appearing lower extremity edema); no calf tenderness Gastrointestinal (Abdomen): normal bowel sounds, soft, nontender, no hepatosplenomegaly Musculoskeletal: Extremities: + extremities abnormal to inspection (right shoulder tenderness anteriorly and laterally; no deformity, erythema ) Skin: + rash (chronic venous stasis changes lower extremities) Psychiatric: Orientation: alert; + not oriented x 3 (oriented to person & Rosalie, but not hospital, date, president) Results & Data Vital Signs (Past 12 Hours) Vital Signs Temp Pulse Pulse Resp BP Pulse Ox 02/25/19 12:06 36.8 C 84 18 154/71 H 97 02/25/19 07:40 37.2 C 84 18 114/55 L 94 02/25/19 07:11 81 02/25/19 04:00 36.9 C 84 20 143/66 H 95 Laboratory Results Laboratory Results - last 24 hr 02/25/19 02/25/19 06:43 14:46 PT 16.2 H INR 1.6 H Creatinine Pending Est Cr Clr Drug Dosing Pending Est GFR ( Amer) Pending Est GFR (Non-Af Amer) Pending Microbiology 02/21/19 06:28 Throat Throat Culture - Final Heavy normal cosmo. 02/21/19 00:22 Blood Aerobic Blood Culture - Preliminary No growth in Aerobic bottle after 48 hours. 02/21/19 00:22 Blood Anaerobic Blood Culture - Preliminary No growth in Anaerobic bottle after 48 hours. 02/20/19 23:42 Blood Aerobic Blood Culture - Preliminary No growth in Aerobic bottle after 48 hours. 02/20/19 23:42 Blood Anaerobic Blood Culture - Preliminary No growth in Anaerobic bottle after 48 hours. (1) Sepsis Sepsis acute organ dysfunction status: without acute organ dysfunction Sepsis type: sepsis due to unspecified organism Qualified Code(s): A41.9 - Sepsis, unspecified organism (2) CAD (coronary artery disease) Associated angina: with stable angina Coronary Disease-Associated Artery/Lesion type: [place] artery [place] vs. transplanted heart: [place] heart Qualified Code(s): I25.118 - Atherosclerotic heart disease of [place] coronary artery with other forms of angina pectoris (3) Atrial fibrillation Atrial fibrillation type: paroxysmal Qualified Code(s): I48.0 - Paroxysmal atrial fibrillation (4) HTN (hypertension) Hypertension type: unspecified Qualified Code(s): I10 - Essential (primary) hypertension (5) Hypothyroidism Hypothyroidism type: acquired Qualified Code(s): E03.9 - Hypothyroidism, unspecified
[2019-02-25 15:27] LABS: Est GFR (African American) 108.8; Est GFR (Non-African American) 93.9
[2019-02-25] MEDS ORDERED: levoFLOXacin 750 MG TAB PO ONE (15:33)
[2019-02-25] MEDS: WARFARIN SOD 2 MG TAB PO SCH (16:30)
[2019-02-25] MEDS: DIGOXIN 0.125 MG TAB PO SCH (16:31)
[2019-02-25] MEDS: ACETAMINOPHEN 325 MG TAB PO PRN (18:49)
[2019-02-26] MEDS: LEVOTHYROXINE SODIUM 88 MCG TABLET PO SCH (05:43)
[2019-02-26 08:11] LABS: INR 1.6 (0.9-1.1); Prothrombin Time 16.1 Seconds (9.0-12.0)
[2019-02-26 08:16] LABS: Albumin Level 2.1 gm/dl (3.4-5.0); BUN Creatinine Ratio 11.5 (10-20); Bilirubin Direct 0.2 mg/dl (0-0.2); Calcium 8.4 mg/dl (8.5-10.1); Creatinine Clr Calc Pharmacy 93.3 ml/min; Est GFR (African American) 110.9; Est GFR (Non-African American) 95.7; Magnesium 1.6 mg/dl (1.8-2.4); Potassium 3.6 mmol/L (3.5-5.1)
[2019-02-26 08:27] LABS: Albumin Globulin Ratio 0.5 (0.9-2); Bilirubin,Total 0.6 mg/dl (0.2-1); Globulin 4.2 gm/dl (2.5-4.0); Thyroid Stimulating Hormone 2.58 uIu/ml (0.300-4.500); Total Protein 6.3 gm/dl (6.4-8.2)
[2019-02-26 09:02] LABS: Folate (Folic Acid) 19.34 ng/ml (>5.38)
[2019-02-26] MEDS: CARVEDILOL 3.125 MG TAB PO SCH ×2 (09:36→16:38)
[2019-02-26] MEDS: SPIRONOLACTONE 25 MG TAB PO SCH ×2 (09:36→16:39)
[2019-02-26] MEDS: LACTOBACILLUS ACIDOPHILUS (FLORANEX) TAB PO SCH ×3 (09:36→16:41)
[2019-02-26] MEDS: LINEZOLID 600 MG TAB PO SCH ×2 (09:37→20:25)
[2019-02-26] MEDS: HEPARIN SOD 5,000 UNIT/0.5 ML VIAL SQ SCH ×2 (09:37→20:25)
[2019-02-26] MEDS: PANTOprazole 40 MG TAB PO SCH (09:37)
[2019-02-26] MEDS: ATORVASTATIN 10 MG TAB PO SCH (09:37)
[2019-02-26] MEDS: POTASSIUM CHLORIDE 10 MEQ TABCR PO SCH (09:37)
[2019-02-26] MEDS: DOCUSATE SODIUM 100 MG CAP PO SCH ×2 (09:37→20:26)
[2019-02-26] MEDS: levoFLOXacin 750 MG TAB PO SCH (11:04)
[2019-02-26] MEDS: SODIUM CHLORIDE 1 GM TABLET PO SCH ×2 (11:04→20:26)
[2019-02-26] MEDS ORDERED: WARFARIN SOD 3 MG TAB PO SCH (16:00)
[2019-02-26] MEDS: DIGOXIN 0.125 MG TAB PO SCH (16:40)
--- NOTE | 2019-02-26 16:42 | Hospitalist Progress Note ---
Date of Service February 26, 2019 Assessment & Plan (1) Perirectal abscess: Persistent perirectal abscess, measuring 2.3 x 1.[address] 02/16. Appreciate Surgery Input Continue conservative management IV daptomycin and aztreonam>>transitioned to PO Abx Appreciate ID Input Continue linezolid and levofloxacin--Need to complete 3 week course Hypomagnesemia Replace and monitor electrolytes as needed Vitamin D deficiency Started on Vitamin D supplements (2) Sepsis: Met criteria for severe sepsis: Secondary to perirectal abscess Blood cultures: No growth Serum lactate 1.2. Management as above (3) Altered mental status: Likely due to delirium, infection/Metabolic encephalopathy, In setting of baseline dementia, chronic hyponatremia Reorient frequently Monitor (4) CAD (coronary artery disease): No anginal symptoms. Continue warfarin, carvedilol. (5) Atrial fibrillation: Rate controlled Continue carvedilol, digoxin. Continue warfarin for anticoagulation Monitor INR: 1.6 Increase Coumadin to 3 mg (6) HTN (hypertension): Stable Continue current medications (7) Hyponatremia: H/O Hyponatremia. Received IV fluids Monitor sodium levels Nephrology evaluation if needed (8) Dyslipidemia: Continue Lipitor (9) Hypothyroidism: Continue levothyroxine. (10) Dementia: Mental status fluctuating. Monitor for delirium. (11) Shoulder pain: Patient complained of severe right shoulder pain. No trauma Shoulder X ray: showed arthritic changes, no fracture or dislocation. Appreciate orthopedics input Conservative management Needs follow-up with orthopedics in 2 to 4 weeks (12) DVT prophylaxis: On warfarin Heparin SQ till INR is therapeutic Code Status DNI/DNR (13) Discharge planning issues: Anticipated discharge to home. Primary Care follow-up with Dr. Still. Subjective Patient is seen and examined at bedside States feeling much better today Intermittently confused as per RN Oriented to person, place during my encounter Denies any shoulder pain today Discussed with patient's family in detail Noted some drainage from perirectal abscess per RN today Had generalized weakness, difficulty with ambulation Denies any chest pain, shortness of breath, dizziness, nausea, abdominal pain Review of Systems Review of Systems: All systems reviewed & are unremarkable except as noted in HPI & below Physical Exam Physical Exam: Physical Exam: Vitals signs as noted above General Appearance:Moderately built and nourished, no apparent distress Head: normocephalic, Atraumatic Eyes: normal inspection, EOMI Neck: supple, Trachea midline Respiratory/Chest: Decreased breath sounds, CTA Cardiovascular: S1, S2, No murmur Abdomen/GI:Soft, Non tender, Bowel sounds present, +Perirectal abscess Extremities/Musculoskelatal:normal inspection, , B/L chronic venous stasis, R > L leg edema Neurologic/Psych:AAOX3, grossly no focal neurological deficits Skin: normal color, warm Results & Data Vital Signs (Past 12 Hours) Vital Signs Temp Pulse Resp BP BP Pulse Ox 02/26/19 15:54 36.8 C 84 17 123/77 97 02/26/19 11:29 37.1 C 70 18 115/70 96 02/26/19 09:34 70 113/60 02/26/19 08:00 36.9 C 66 18 120/63 96 Laboratory Results [facility] 02/26/19 07:49 Sodium 129 L Potassium 3.6 Chloride 96 L Carbon Dioxide 26 BUN 7 Creatinine 0.63 Glucose 90 Calcium 8.4 L Liver Function 02/26/19 Range/Units 07:49 Total Bilirubin 0.6 (0.2-1) mg/dl Direct Bilirubin 0.2 (0-0.2) mg/dl AST 23 (15-37) U/L ALT 26 (12-78) U/L Alkaline Phosphatase 70 (45-117) U/L Albumin 2.1 L (3.4-5.0) gm/dl (1) CAD (coronary artery disease) Associated angina: with stable angina Coronary Disease-Associated Artery/Lesion type: [place] artery [place] vs. transplanted heart: [place] heart Qualified Code(s): I25.118 - Atherosclerotic heart disease of [place] coronary artery with other forms of angina pectoris (2) Atrial fibrillation Atrial fibrillation type: paroxysmal Qualified Code(s): I48.0 - Paroxysmal atrial fibrillation (3) Hypothyroidism Hypothyroidism type: acquired Qualified Code(s): E03.9 - Hypothyroidism, unspecified (4) Sepsis Sepsis acute organ dysfunction status: without acute organ dysfunction Sepsis type: sepsis due to unspecified organism Qualified Code(s): A41.9 - Sepsis, unspecified organism (5) HTN (hypertension) Hypertension type: unspecified Qualified Code(s): I10 - Essential (primary) hypertension
[2019-02-26] MEDS ORDERED: MAGNESIUM SULFATE / D5W 1 GM/100 ML BAG IV ONE (17:00)
[2019-02-26] MEDS: CHOLECALCIFEROL 1,000 UNITS TAB PO SCH (19:43)
[2019-02-27] MEDS: LEVOTHYROXINE SODIUM 88 MCG TABLET PO SCH (06:31)
[2019-02-27 06:32] LABS: Hematocrit (blood only) 32.2 % (42-52); Hemoglobin 10.5 g/dL (14.0-18.0)
[2019-02-27 06:40] LABS: INR 1.5 (0.9-1.1); Prothrombin Time 15.1 Seconds (9.0-12.0)
[2019-02-27 07:01] LABS: BUN Creatinine Ratio 13.3 (10-20); Calcium 8.7 mg/dl (8.5-10.1); Creatinine Clr Calc Pharmacy 90.4 ml/min; Est GFR (African American) 109.5; Est GFR (Non-African American) 94.5; Magnesium 2.1 mg/dl (1.8-2.4); Potassium 3.8 mmol/L (3.5-5.1)
[2019-02-27] MEDS: CARVEDILOL 3.125 MG TAB PO SCH ×2 (08:22→16:53)
[2019-02-27] MEDS: LACTOBACILLUS ACIDOPHILUS (FLORANEX) TAB PO SCH ×3 (08:22→16:53)
[2019-02-27] MEDS: CHOLECALCIFEROL 1,000 UNITS TAB PO SCH (09:07)
[2019-02-27] MEDS: ATORVASTATIN 10 MG TAB PO SCH (09:07)
[2019-02-27] MEDS: POTASSIUM CHLORIDE 10 MEQ TABCR PO SCH (09:07)
[2019-02-27] MEDS: DOCUSATE SODIUM 100 MG CAP PO SCH ×2 (09:07→19:41)
[2019-02-27] MEDS: SPIRONOLACTONE 25 MG TAB PO SCH ×2 (09:07→16:52)
[2019-02-27] MEDS: PANTOprazole 40 MG TAB PO SCH (09:07)
[2019-02-27] MEDS: LINEZOLID 600 MG TAB PO SCH ×2 (09:08→19:43)
[2019-02-27] MEDS: HEPARIN SOD 5,000 UNIT/0.5 ML VIAL SQ SCH ×2 (09:08→19:42)
[2019-02-27] MEDS: levoFLOXacin 750 MG TAB PO SCH (12:45)
--- NOTE | 2019-02-27 15:07 | Hospitalist Progress Note ---
Date of Service February 27, 2019 Assessment & Plan (1) Perirectal abscess: Persistent perirectal abscess, measuring 2.3 x 1.[address] 02/16. Appreciate Surgery Input Continue conservative management IV daptomycin and aztreonam>>transitioned to PO Abx Appreciate ID Input Continue linezolid and levofloxacin--Need to complete 3 week course Day # 5/21 Hypomagnesemia Replace and monitor electrolytes as needed Vitamin D deficiency Continue Vitamin D supplements (2) Sepsis: Met criteria for severe sepsis: Secondary to perirectal abscess Blood cultures: No growth Serum lactate 1.2. Management as above (3) Altered mental status: Likely due to delirium, infection/Metabolic encephalopathy, In setting of baseline dementia, chronic hyponatremia Reorient frequently Monitor Mental status seemed to be Improving (4) CAD (coronary artery disease): No anginal symptoms. Continue warfarin, carvedilol. (5) Atrial fibrillation: Rate controlled Continue carvedilol, digoxin. Continue warfarin for anticoagulation Monitor INR: 1.5 Increase Coumadin to 4 mg today (6) HTN (hypertension): Stable Continue current medications (7) Hyponatremia: H/O Hyponatremia. Received IV fluids Monitor sodium levels Nephrology evaluation if needed (8) Dyslipidemia: Continue Lipitor (9) Hypothyroidism: Continue levothyroxine. (10) Dementia: Mental status fluctuating. Monitor for delirium. (11) Shoulder pain: Patient complained of severe right shoulder pain. No trauma Shoulder X ray: showed arthritic changes, no fracture or dislocation. Appreciate orthopedics input Conservative management Needs follow-up with orthopedics in 2 to 4 weeks (12) DVT prophylaxis: On warfarin Heparin SQ till INR is therapeutic Code Status DNI/DNR (13) Discharge planning issues: PT/OT: Recommends Rehab Case management on board Primary Care follow-up with Dr. Still. Subjective Patient is seen and examined at bedside Mental status seems to be back to baseline Eager to get discharged Needs 2 person assist as per RN PT/OT recommends rehab Patient offers no complaints currently Still has significant generalized weakness, ambulatory dysfunction Denies any chest pain, sob, dizziness, nausea, abdominal pain Review of Systems Review of Systems: All systems reviewed & are unremarkable except as noted in HPI & below Physical Exam Physical Exam: Physical Exam: Vitals signs as noted above General Appearance:Moderately built and nourished, no apparent distress Head: normocephalic, Atraumatic Eyes: normal inspection, EOMI Neck: supple, Trachea midline Respiratory/Chest: Decreased breath sounds, CTA Cardiovascular: S1, S2, No murmur Abdomen/GI:Soft, Non tender, Bowel sounds present, +Perirectal abscess Extremities/Musculoskelatal:normal inspection, , B/L chronic venous stasis, R > L leg edema Neurologic/Psych:AAOX3, grossly no focal neurological deficits Skin: normal color, warm Results & Data Vital Signs (Past 12 Hours) Vital Signs Temp Pulse Resp BP Pulse Ox 02/27/19 08:00 36.5 C 68 18 129/63 98 Laboratory Results Short CBC 02/27/19 Range/Units 06:05 Hgb 10.5 L (14.0-18.0) g/dL Hct 32.2 L (42-52) % BMP 02/27/19 06:05 Sodium 131 L Potassium 3.8 Chloride 97 L Carbon Dioxide 29 BUN 9 Creatinine 0.65 Glucose 91 Calcium 8.7 (1) Sepsis Sepsis acute organ dysfunction status: without acute organ dysfunction Sepsis type: sepsis due to unspecified organism Qualified Code(s): A41.9 - Sepsis, unspecified organism (2) CAD (coronary artery disease) Associated angina: with stable angina Coronary Disease-Associated Artery/Lesion type: [place] artery [place] vs. transplanted heart: [place] heart Qualified Code(s): I25.118 - Atherosclerotic heart disease of [place] coronary artery with other forms of angina pectoris (3) Atrial fibrillation Atrial fibrillation type: paroxysmal Qualified Code(s): I48.0 - Paroxysmal atrial fibrillation (4) HTN (hypertension) Hypertension type: unspecified Qualified Code(s): I10 - Essential (primary) hypertension (5) Hypothyroidism Hypothyroidism type: acquired Qualified Code(s): E03.9 - Hypothyroidism, unspecified
[2019-02-27 15:31] VITALS: BP 103/51; TEMP 98.2; O2SAT 95
[2019-02-27] MEDS ORDERED: WARFARIN SOD 4 MG TAB PO SCH (16:00)
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
[2019-02-27] MEDS: DIGOXIN 0.125 MG TAB PO SCH (16:53)
[2019-02-27 17:08] VITALS: PULSE 90
== END 2019-02-27 20:08 | disposition home health service (06) | DRG 871 ==
LOC: ED 22:18 → 2N 02-21 01:40 → SUATTDRO 02-21 01:40 → 2N 02-21 02:11

== ENCOUNTER 2019-03-26 13:39 | Inpatient (IN) ==
--- NOTE | 2019-03-26 16:08 | XRay Report ---
SINGLE VIEW CHEST CLINICAL HISTORY: Generalized weakness. FINDINGS: An AP, portable, upright chest radiograph is compared to study dated 02/20/2019. The examina tion is degraded by portable technique and patient rotation. The heart is enlarged noting atheroscler otic calcification of the thoracic aorta. The pulmonary vasculature is noncongested. There is bibasil ar atelectasis. No airspace consolidation or large pleural effusion is identified. No pneumothorax is seen. The skeletal structures are osteopenic. The bony thorax is grossly intact. Degenerative change is noted in the left shoulder. IMPRESSION: Cardiomegaly with no acute cardiopulmonary abnormality. Electronically signed by: Joel Olivo M.D. 03/26/2019 4:06 PM
--- NOTE | 2019-03-26 16:35 | Emergency Department Note ---
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 medical decision making performed by me.
[2019-03-26 17:28] LABS: Basophils # (auto) 0.01 K/uL (0-0.2); Basophils % (auto) 0.2 %; Eosinophils % (auto) 3.6 %; Hematocrit (blood only) 27.1 % (42-52); Hemoglobin 8.7 g/dL (14.0-18.0); Immature Granulocytes # (auto) 0.05 K/uL (0.00-0.02); Immature Granulocytes % (auto) 0.9 %; Lymphocytes # (auto) 1.34 K/uL (1.2-3.4); Lymphocytes % (auto) 23.9 %; Mean Corpuscular Hemoglobin 30.3 pg (25-34); Mean Corpuscular Hgb Conc 32.1 g/dL (32-36); Mean Corpuscular Volume 94.4 fL (80-100); Mean Platelet Volume 9.7 fL (7.4-10.4); Monocytes # (auto) 0.87 K/uL (0.11-0.59); Monocytes % (auto) 15.5 %; Neutrophils # (auto) 3.14 K/uL (1.4-6.5); Neutrophils % (auto) 55.9 %; Platelet Count 170 K/uL (130-400); RDW Coefficient of Variation 15.6 % (11.5-14.5); RDW Standard Deviation 52.1 fL (36.4-46.3); Red Blood Count 2.87 M/uL (4.7-6.1); White Blood Count 5.61 K/uL (4.8-10.8)
[2019-03-26] MEDS: SODIUM CHLORIDE 0.9% 1000ML 1,000 ML IV SCH ×2 (17:36→21:28)
[2019-03-26 17:40] LABS: INR 1.5 (0.9-1.1); Prothrombin Time 14.6 Seconds (9.0-12.0)
[2019-03-26 17:44] LABS: Albumin Level 3.1 gm/dl (3.4-5.0); BUN Creatinine Ratio 16.5 (10-20); Blood Urea Nitrogen 12 mg/dl (7-18); Calcium 8.8 mg/dl (8.5-10.1); Carbon Dioxide 28 mmol/L (21-32); Chloride 105 mmol/L (98-107); Est GFR (African American) 104.4; Est GFR (Non-African American) 90.1; Glucose 87 mg/dl (70-99); Lipase 115 U/L (73-393); Magnesium 1.9 mg/dl (1.8-2.4); Potassium 3.4 mmol/L (3.5-5.1); Sodium 138 mmol/L (136-145)
[2019-03-26 17:50] LABS: Alanine Aminotransferase 12 U/L (12-78); Albumin Globulin Ratio 0.8 (0.9-2); Alkaline Phosphatase 89 U/L (45-117); Aspartate Aminotransferase 15 U/L (15-37); Bilirubin,Total 0.4 mg/dl (0.2-1); Globulin 3.7 gm/dl (2.5-4.0); NT Pro B Type Natriuretic Pept 1585 pg/ml (0-1800); Total Protein 6.8 gm/dl (6.4-8.2); Troponin I < 0.015 ng/ml (0-0.045)
[2019-03-26] MEDS ORDERED: IOVERSOL 100ml IV PRN (18:45)
--- NOTE | 2019-03-26 18:55 | CT Scan Report ---
CT SCAN OF THE BRAIN WITHOUT IV CONTRAST CLINICAL HISTORY: Change in mental status. COMPARISON STUDY: CT of the brain dated 11/28/2018. TECHNIQUE: Unenhanced axial CT scan of the brain is performed from the vertex to the skull base. A do se lowering technique was utilized adhering to the principles of ALARA. CT DOSE: 537.48 mGy.cm FINDINGS: Brain parenchyma: There are age-related involutional changes noting moderate patchy subcortical and periventricular microangiopathic change. There is no hemorrhage, mass effect, or evidence of acute te rritorial ischemia by CT criteria. Keating-white matter differentiation is preserved. No extra-axial flu id collection is seen. Ventricles, sulci, cisterns: Prominent secondary to involutional change. Intracranial vasculature: There is atherosclerotic calcification of the cavernous carotid and vertebr al arteries. Calvarium: Unremarkable. Sinuses and mastoids: There is near complete opacification of the left frontal sinuses. The remaining visualized paranasal sinuses are clear. The mastoid air cells are well pneumatized. Orbits: The bony orbits are grossly intact. There are bilateral ocular lens implants. IMPRESSION: There is no hemorrhage, mass effect, or evidence of acute territorial ischemia by CT harshal gotti. Electronically signed by: Joel Olivo M.D. 03/26/2019 6:53 PM
[2019-03-26] MEDS ORDERED: SODIUM CHLORIDE 0.9% 500 ML IV ONE (19:25)
--- NOTE | 2019-03-26 19:26 | CT Scan Report ---
CT SCAN OF THE ABDOMEN AND PELVIS WITH IV CONTRAST CLINICAL HISTORY: Perirectal abscess. COMPARISON STUDY: Multiple prior abdominal CT scans, most recently dated 02/16/2019. TECHNIQUE: Following the IV administration of 92 cc of Optiray 320, CT scan of the abdomen and pelvi s is performed from the lung bases to the proximal femora. Images are reviewed in the axial, sagittal , and coronal planes. IV contrast was administered without complication. A dose lowering technique wa s utilized adhering to the principles of ALARA. The examination is degraded by motion artifact, as we ll as by streak artifact from the arms which could not be elevated above the abdomen. CT DOSE: 539.74 mGy.cm FINDINGS: Lung bases: The heart is large and without pericardial effusion. There are coronary artery calcificat ions. A small hiatal hernia is noted. Chronic interstitial changes are suggested at the lung bases. T here is bibasilar scarring/atelectasis. No airspace consolidation or pleural effusion is seen. Gyneco mastia is noted. Liver: The contrast-enhanced liver is cirrhotic in morphology and heterogeneous in attenuation. There is hypertrophy of the left lobe and nodularity of the surface contour. There is no intrahepatic bili morteza ductal dilatation. The hepatic veins and portal veins are patent. Gallbladder: Unremarkable. Spleen: Normal in size and attenuation. Pancreas: Moderately atrophic and grossly unremarkable. Adrenal glands: Unremarkable. Kidneys: The contrast enhanced demonstrate cortical atrophy and are without hydronephrosis. The kidne ys enhance symmetrically. Foci of cortical scarring are noted in both kidneys. Subcentimeter cortical hypodensities in the left kidney likely represent cysts but are too small for definitive characteriz ation. Abdominal vasculature: The abdominal aorta is normal in course and caliber noting moderate to advance d atherosclerotic calcification. Bowel: There is rectosigmoid fecal retention and moderate constipation. No bowel obstruction is seen. The appendix is well-visualized and normal. Peritoneum: There is no intraperitoneal free air or abdominal ascites. Lymphadenopathy: Mildly enlarged external iliac chain lymph nodes measure up to 1.4 cm in short axis. Pelvic viscera: The prostate gland is diminutive and heterogeneous. The bladder wall is mildly thicke landen and trabeculated indicating chronic outlet obstruction. The seminal vesicles are normal in appear ance. There is asymmetric atrophy of the left pelvic musculature as compared to the right. A small fa t-containing inguinal hernia is noted on the right. There is a horseshoe shaped perirectal/perianal a bscess located just below the levator musculature seen on images #[id number]. This extends from the 1:00 to 11:00 position. The component on the right measures approximately 3.3 x 0.9 cm, and a component o n the left measures 3.1 x 0.6 cm. These connect anteriorly in the midline as seen on image #395. The collection on the right is larger, and a complex/branching fistulous tract extends from the inferior aspect of the right-sided collection to the inferior gluteal crease on images #437 and #457. A fistul ous tract is also seen developing on the left which approaches the inferior gluteal crease on image # 449. Skeletal structures: The skeletal structures are osteopenic. A large hemangioma is seen in the body o f L3. No lytic or blastic lesions are seen. There is mild to moderate lumbosacral spondylosis. Advanc ed degenerative change and deformity is noted in the left hip with flattening the femoral head and ne ar complete loss of joint space. 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 IMPRESSION: 1. There is a horseshoe shaped perirectal/perianal abscess identified as detailed above. This communi cates anteriorly in the midline and has increased in size from 02/16/2019. 2. There are bilateral fistulous tracts extending inferiorly from the abscess to the median gluteal c rease. 3. There is rectosigmoid fecal retention and moderate constipation. 4. Cardiomegaly. 5. Cirrhotic liver morphology. 6. Additional findings as above. Electronically signed by: Joel Olivo M.D. 03/26/2019 7:24 PM
[2019-03-26 20:24] LABS: Appearance Urine Clear (Clear); Bacteria Urine Automated Negative (Negative); Bilirubin Urine Negative (Negative); Blood Urine Negative (Negative); Color Urine Yellow; Epithelial Cell Urine Auto >30 /lpf (0-5); Glucose Urine UA Negative (Negative); Ketones Urine Negative (Negative); Leukocyte Esterase Urine Trace (Negative); Nitrite Urine Negative (Negative); Protein Urine Negative (Negative); Specific Gravity Urine > 1.045 (1.000-1.030); Urobilinogen Urine Negative (Negative); WBC Urine Automated >30 /hpf (0-5); pH Urine 6.5 (4.5-7.5)
[2019-03-26] MEDS ORDERED: ERTAPENEM SODIUM 10 ML IV STA (20:32)
[2019-03-26] MEDS ORDERED: DAPTOmycin 400 MG in SYRINGE 0 ML IV STA (20:37)
[2019-03-26 20:38] LABS: Calcium Oxalate Crystals Urine Present (None Prsent); Renal Epithelial Cells Urine 0-5 /lpf (0-5)
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
[2019-03-26] MEDS ORDERED: POTASSIUM CHLORIDE 20 MEQ TABCR PO STA (21:47)
[2019-03-26 21:49] LABS: Hematocrit (blood only) 25.7 % (42-52); Hemoglobin 8.3 g/dL (14.0-18.0); Reticulocyte % 5.5 % (0.5-2.0); Reticulocytes # 0.15 10^6/uL (0.02-0.10)
[2019-03-26] MEDS ORDERED: POLYETHYLENE (MIRALAX) 17 GM PACK PO PRN (21:54)
[2019-03-26] MEDS ORDERED: ONDANSETRON INJ 2 MG/ML 2 ML VIAL IV PRN (21:54)
[2019-03-26] MEDS ORDERED: ACETAMINOPHEN 325 MG TAB PO PRN (21:54)
[2019-03-26] MEDS ORDERED: PATIENT'S HEIGHT NEEDED STA (22:25)
[2019-03-26] MEDS ORDERED: DAPTOMYCIN CONSULT ACTIVE PRN (22:32)
[2019-03-26] MEDS ORDERED: ERTAPENEM CONSULT ACTIVE PRN (22:32)
[2019-03-26 22:41] LABS: Ferritin 143.7 ng/ml (8-388)
[2019-03-27] MEDS: SODIUM CHLORIDE 0.9% 1000ML 1,000 ML IV SCH ×3 (00:13→18:40)
[2019-03-27] MEDS ORDERED: Nursing to Pharmacy 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 ONE (05:08)
[2019-03-27] MEDS: LEVOTHYROXINE SODIUM 88 MCG TABLET PO SCH (05:44)
--- NOTE | 2019-03-27 07:26 | Surgery Progress Note ---
Date of Service March 27, 2019 Subjective pt resting comfortably- afeb, vitals stable no acute perianal pain req meds H/H will likely fall with hydration will try to discuss care with Dr Oconnell regarding recent plan for perirectal fistula which is complex Results & Data Vital Signs (Past 12 Hours) Vital Signs Temp Pulse Pulse Resp BP BP Pulse Ox 03/27/19 07:00 37.3 C 73 16 127/61 93 03/27/19 03:50 74 03/26/19 23:30 37.3 C 110 H 20 153/77 H 93 03/26/19 22:33 37.3 C 71 20 157/88 H 95 03/26/19 21:37 77 18 155/85 H 98 03/26/19 20:31 65 24 160/87 H 98 03/26/19 20:08 74 29 H 160/86 H 03/26/19 19:30 73 25 H 149/80 H 100 PG Care Time/CCT Total # of Minutes Spent Total Time Spent with Patient: Total time spent is greater than 50% in coordination of care (as documented) at patient's floor/unit and/or counseling patient:
[2019-03-27 08:20] LABS: Basophils # (auto) 0.01 K/uL (0-0.2); Basophils % (auto) 0.1 %; Eosinophils # (auto) 0.07 K/uL (0-0.5); Eosinophils % (auto) 0.9 %; Hematocrit (blood only) 23.1 % (42-52); Hemoglobin 7.4 g/dL (14.0-18.0); Immature Granulocytes # (auto) 0.02 K/uL (0.00-0.02); Immature Granulocytes % (auto) 0.3 %; Lymphocytes # (auto) 1.36 K/uL (1.2-3.4); Lymphocytes % (auto) 18.4 %; Mean Corpuscular Hemoglobin 30.6 pg (25-34); Mean Corpuscular Volume 95.5 fL (80-100); Mean Platelet Volume 9.3 fL (7.4-10.4); Monocytes # (auto) 0.87 K/uL (0.11-0.59); Monocytes % (auto) 11.8 %; Neutrophils # (auto) 5.06 K/uL (1.4-6.5); Neutrophils % (auto) 68.5 %; Platelet Count 167 K/uL (130-400); RDW Coefficient of Variation 15.4 % (11.5-14.5); RDW Standard Deviation 52.1 fL (36.4-46.3); Red Blood Count 2.42 M/uL (4.7-6.1); White Blood Count 7.39 K/uL (4.8-10.8)
[2019-03-27] MEDS: CHOLECALCIFEROL 1,000 UNITS 25 MCG TAB PO SCH (08:27)
[2019-03-27] MEDS: DOCUSATE SODIUM 100 MG CAP PO SCH ×2 (08:27→18:42)
[2019-03-27] MEDS: PANTOprazole 40 MG TAB PO SCH (08:27)
[2019-03-27] MEDS: ATORVASTATIN 10 MG TAB PO SCH (08:27)
[2019-03-27] MEDS: carvediloL 3.125 MG TAB PO SCH ×2 (08:27→18:42)
[2019-03-27] MEDS: POTASSIUM CHLORIDE 10 MEQ TABCR PO SCH (08:28)
[2019-03-27 08:36] LABS: INR 1.5 (0.9-1.1); Prothrombin Time 15.1 Seconds (9.0-12.0)
[2019-03-27 08:50] LABS: BUN Creatinine Ratio 14.8 (10-20); Calcium 8.4 mg/dl (8.5-10.1); Creatinine Clr Calc Pharmacy 93.3 ml/min; Est GFR (African American) 110.9; Est GFR (Non-African American) 95.7; Magnesium 1.7 mg/dl (1.8-2.4); Potassium 3.6 mmol/L (3.5-5.1)
[2019-03-27 08:51] LABS: Polychromasia 1+
[2019-03-27 09:01] LABS: Vitamin B12 1014 pg/ml (211-911)
[2019-03-27 09:02] LABS: Folate (Folic Acid) > 24.00 ng/ml (>5.38)
[2019-03-27] MEDS ORDERED: MAGNESIUM SULFATE / D5W 1 GM/100 ML BAG IV ONE (09:22)
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
[2019-03-27] MEDS ORDERED: SODIUM CHLORIDE 0.9% 250 ML IV PRN (10:46)
--- NOTE | 2019-03-27 16:00 | Hospitalist Progress Note ---
Date of Service March 27, 2019 Assessment & Plan (1) Weakness: (2) Ambulatory dysfunction: (3) Jeanne-rectal abscess: Patient is a 78 yr old male with H/O Chronic A. fib anticoagulated on Coumadin, CAD S/P stent, HTN, PAD, chronic venous insufficiency, BPH with chronic bladder outlet obstruction, hypothyroidism, gout, GERD, anemia, history of C. difficile infection who presents with generalized weakness, intermittent confusion and abdominal pain x1 day. Recurrent Perirectal/Perianal Abscess --CT ABD:There is a horseshoe shaped perirectal/perianal abscess identified as detailed above. This communicates anteriorly in the midline and has increased in size from 02/16/2019. There are bilateral fistulous tracts extending inferiorly from the abscess to the median gluteal crease. There is rectosigmoid fecal retention and moderate constipation. Cardiomegaly. Cirrhotic liver morphology. --Blood Culture pending --Continue IV Daptomycin, Ertapenem Day #2 --Needs Colorectal surgeon upon discharge --Appreciate Surgery Input --Wound Care Metabolic Encephalopathy Head CT:There is no hemorrhage, mass effect, or evidence of acute territorial ischemia by CT criteria. Likely due to above Urine Culture:pending Check Ammonia Level monitor (4) Normocytic anemia: Anemia of chronic disease, Iron deficiency Hb dropped from baseline Partly dilutional from IV fluids Normal ferritin, vitamin B12, folate level, bilirubin Mild reticulocytosis, check LDH, haptoglobin Transfuse PRBCs as needed Check FOBT Start on iron supplements Coumadin on hold for now Monitor Hb Hypomagnesemia Replace electrolytes as needed (5) Dehydration: Decrease IV fluids Monitor (6) Afib: Chronic atrial fibrillation INR subtherapeutic Warfarin on hold secondary to worsening anemia On carvedilol for rate control Monitor INR (7) CAD (coronary artery disease): Continue carvedilol, statin Coumadin on hold (8) HTN (hypertension): Continue Coreg Spironolactone currently held Monitor (9) Hypokalemia: Replace as needed (10) Hypothyroidism: Check TSH Continue levothyroxine (11) Dyslipidemia: Continue statin (12) Chronic venous insufficiency: b/l chronic venous stasis changes Monitor (13) BPH (benign prostatic hyperplasia): Patient follows with [facility] [facility] urology Dr. Mendez Bladder scan as needed (14) DVT prophylaxis: SCD/TEDS Re :worsening anemia Disposition: PT/OT prior to discharge Follow-up: PCP Dr. Magaña upon discharge Subjective Patient is seen and examined at bedside Patient is intermittently confused History is limited secondary to patient's mental status Has generalized weakness and complains of intermittent abdominal pain Obtained consent from patient's son for blood transfusion Discussed with surgery today Denies any chest pain, shortness of breath Review of Systems Review of Systems: All systems reviewed & are unremarkable except as noted in HPI & below Physical Exam Physical Exam: Physical Exam: Vitals signs as noted above General Appearance: Chronically appearing, no apparent distress Head: normocephalic, Atraumatic Eyes: normal inspection, EOMI Neck: supple, Trachea midline Respiratory/Chest: Normal breath sounds, CTA Cardiovascular: Irregularly irregular, No murmur Abdomen/GI:Soft, mild tender, no guarding or rigidity, bowel sounds present : Erythematous rectum Extremities/Musculoskelatal:normal inspection, chronic bilateral venous stasis changes Neurologic/Psych:AAOX3, grossly no focal neurological deficits Skin: normal color, warm Results & Data Vital Signs (Past 12 Hours) Vital Signs Temp Pulse Pulse Resp BP BP Pulse Ox 03/27/19 15:37 36.8 C 63 16 162/79 H 98 03/27/19 15:32 36.8 C 65 16 162/79 H 97 03/27/19 13:54 36.6 C 69 20 157/79 H 97 03/27/19 13:24 36.6 C 62 15 155/81 H 94 03/27/19 13:09 36.5 C 76 16 129/71 92 03/27/19 13:07 36.9 C 83 16 156/72 H 95 03/27/19 12:51 37.3 C 73 16 143/76 H 95 03/27/19 07:00 37.3 C 73 16 127/61 93 Laboratory Results Short CBC 03/26/19 03/26/19 03/27/19 Range/Units 17:15 21:17 07:49 WBC 5.61 7.39 (4.8-10.8) K/uL Hgb 8.7 L 8.3 L 7.4 L (14.0-18.0) g/dL Hct 27.1 L 25.7 L 23.1 L (42-52) % Plt Count 170 167 (130-400) K/uL BMP 03/26/19 03/27/19 Unknown 07:49 Sodium 138 138 Potassium 3.4 L 3.6 Chloride 105 106 Carbon Dioxide 28 24 BUN 12 9 Creatinine 0.73 0.63 Glucose 87 85 Calcium 8.8 8.4 L Cardiac Enzymes 03/26/19 Range/Units Unknown Troponin I < 0.015 (0-0.045) ng/ml Liver Function 03/26/19 Range/Units Unknown Total Bilirubin 0.4 (0.2-1) mg/dl AST 15 (15-37) U/L ALT 12 (12-78) U/L Alkaline Phosphatase 89 (45-117) U/L Albumin 3.1 L (3.4-5.0) gm/dl Urine 03/26/19 Range/Units 20:02 Urine Color Yellow Urine Appearance Clear (Clear) Urine pH 6.5 (4.5-7.5) Ur Specific [place] > 1.045 H (1.000-1.030) Urine Protein Negative (Negative) Urine Glucose (UA) Negative (Negative) (1) Afib Atrial fibrillation type: unspecified Qualified Code(s): I48.91 - Unspecified atrial fibrillation (2) CAD (coronary artery disease) Associated angina: with stable angina Coronary Disease-Associated Artery/Lesion type: [place] artery [place] vs. transplanted heart: [place] heart Qualified Code(s): I25.118 - Atherosclerotic heart disease of [place] coronary artery with other forms of angina pectoris (3) HTN (hypertension) Hypertension type: unspecified Qualified Code(s): I10 - Essential (primary) hypertension (4) Hypothyroidism Hypothyroidism type: acquired Qualified Code(s): E03.9 - Hypothyroidism, un specified
[2019-03-27 17:13] LABS: Hemoglobin 9.6 g/dL (14.0-18.0)
[2019-03-27] MEDS: DIGOXIN 0.125 MG TAB PO SCH (18:40)
[2019-03-27] MEDS ORDERED: DAPTOmycin 275 MG in SYRINGE 0 ML IV SCH (20:00)
[2019-03-27] MEDS: ERTAPENEM SODIUM 1,000 MG in SODIUM CHLORIDE 0.9% 50 ML IV SCH (20:30)
[2019-03-28] MEDS ORDERED: Nursing to Pharmacy 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 ONE (01:06)
[2019-03-28] MEDS: LEVOTHYROXINE SODIUM 88 MCG TABLET PO SCH (06:08)
[2019-03-28 08:11] LABS: Hematocrit (blood only) 27.6 % (42-52); Hemoglobin 8.8 g/dL (14.0-18.0); Mean Corpuscular Hemoglobin 28.4 pg (25-34); Mean Corpuscular Hgb Conc 31.9 g/dL (32-36); Mean Platelet Volume 9.3 fL (7.4-10.4); Platelet Count 213 K/uL (130-400); RDW Coefficient of Variation 19.7 % (11.5-14.5); RDW Standard Deviation 64.6 fL (36.4-46.3); White Blood Count 8.61 K/uL (4.8-10.8)
[2019-03-28 08:34] LABS: INR 1.3 (0.9-1.1)
[2019-03-28 08:43] LABS: BUN Creatinine Ratio 13.5 (10-20); Calcium 8.4 mg/dl (8.5-10.1); Creatinine Clr Calc Pharmacy 104.9 ml/min; Est GFR (African American) 116.4; Est GFR (Non-African American) 100.5; Magnesium 1.8 mg/dl (1.8-2.4); Potassium 3.8 mmol/L (3.5-5.1)
[2019-03-28] MEDS: DOCUSATE SODIUM 100 MG CAP PO SCH ×2 (08:49→21:27)
[2019-03-28] MEDS: PANTOprazole 40 MG TAB PO SCH (08:49)
[2019-03-28] MEDS: carvediloL 3.125 MG TAB PO SCH ×2 (08:49→17:31)
[2019-03-28] MEDS: CHOLECALCIFEROL 1,000 UNITS 25 MCG TAB PO SCH (08:49)
[2019-03-28] MEDS: SODIUM CHLORIDE 0.9% 1000ML 1,000 ML IV SCH ×2 (08:50→20:04)
[2019-03-28] MEDS: POTASSIUM CHLORIDE 10 MEQ TABCR PO SCH (08:50)
[2019-03-28] MEDS: FERROUS GLUCONATE 324 MG TAB PO SCH (08:50)
[2019-03-28] MEDS: ATORVASTATIN 10 MG TAB PO SCH (08:50)
[2019-03-28 08:53] LABS: Thyroid Stimulating Hormone 0.441 uIu/ml (0.300-4.500)
[2019-03-28] MEDS: DIGOXIN 0.125 MG TAB PO SCH (17:31)
--- NOTE | 2019-03-28 18:45 | Hospitalist Progress Note ---
Date of Service March 28, 2019 Assessment & Plan (1) Weakness: (2) Ambulatory dysfunction: (3) Jeanne-rectal abscess: Patient is a 78 yr old male with H/O Chronic A. fib anticoagulated on Coumadin, CAD S/P stent, HTN, PAD, chronic venous insufficiency, BPH with chronic bladder outlet obstruction, hypothyroidism, gout, GERD, anemia, history of C. difficile infection who presents with generalized weakness, intermittent confusion and abdominal pain x1 day. Recurrent Perirectal/Perianal Abscess --CT ABD:There is a horseshoe shaped perirectal/perianal abscess identified as detailed above. This communicates anteriorly in the midline and has increased in size from 02/16/2019. There are bilateral fistulous tracts extending inferiorly from the abscess to the median gluteal crease. There is rectosigmoid fecal retention and moderate constipation. Cardiomegaly. Cirrhotic liver morphology. --Blood Culture: No growth to date --Continue IV Daptomycin, Ertapenem Day #3 --Needs Colorectal surgeon upon discharge --Appreciate Surgery Input --Continue Wound Care Metabolic Encephalopathy Head CT:There is no hemorrhage, mass effect, or evidence of acute territorial ischemia by CT criteria. Likely due to above Urine Culture: Skin cosmo Ammonia Level: normal monitor (4) Normocytic anemia: Anemia of chronic disease, Iron deficiency Hb dropped from baseline Partly dilutional from IV fluids Normal ferritin, vitamin B12, folate level, bilirubin Mild reticulocytosis, check LDH, haptoglobin Transfuse PRBCs as needed Check FOBT Started on iron supplements Coumadin on hold for now Monitor Hb We will try heparin SQ prior to initiating Coumadin Hypomagnesemia Replace electrolytes as needed (5) Dehydration: Received IV fluids Monitor (6) Afib: Chronic atrial fibrillation INR subtherapeutic Warfarin on hold secondary to worsening anemia On carvedilol for rate control Monitor INR (7) CAD (coronary artery disease): Continue carvedilol, statin Coumadin on hold (8) HTN (hypertension): Continue Coreg Spironolactone currently held Monitor (9) Hypokalemia: Replace as needed (10) Hypothyroidism: Normal TSH Continue levothyroxine (11) Dyslipidemia: Continue statin (12) Chronic venous insufficiency: b/l chronic venous stasis changes Monitor (13) BPH (benign prostatic hyperplasia): Patient follows with [facility] [place] urology Dr. Mendez Bladder scan as needed (14) DVT prophylaxis: Heparin SQ Disposition: PT/OT prior to discharge Follow-up: PCP Dr. Magaña upon discharge Subjective Patient is seen and examined at bedside Mental status slightly improved today He is more alert and awake today Poor historian Denies any chest pain, shortness of breath, dizziness Cultures negative so far Review of Systems Review of Systems: All systems reviewed & are unremarkable except as noted in HPI & below Results & Data Vital Signs (Past 12 Hours) Vital Signs Temp Pulse Pulse Resp BP Pulse Ox 03/28/19 17:31 89 03/28/19 15:10 37.6 C H 86 16 158/82 H 93 03/28/19 10:29 164/91 H 03/28/19 07:16 37.1 C 81 20 172/89 H 95 Laboratory Results Short CBC 03/28/19 Range/Units 07:46 WBC 8.61 (4.8-10.8) K/uL Hgb 8.8 L (14.0-18.0) g/dL Hct 27.6 L (42-52) % Plt Count 213 (130-400) K/uL BMP 03/28/19 07:46 Sodium 134 L Potassium 3.8 Chloride 103 Carbon Dioxide 24 BUN 8 Creatinine 0.56 L Glucose 89 Calcium 8.4 L (1) Afib Atrial fibrillation type: unspecified Qualified Code(s): I48.91 - Unspecified atrial fibrillation (2) CAD (coronary artery disease) Associated angina: with stable angina Coronary Disease-Associated Artery/Lesion type: [place] artery [place] vs. transplanted heart: [place] heart Qualified Code(s): I25.118 - Atherosclerotic heart disease of [place] coronary artery with other forms of angina pectoris (3) HTN (hypertension) Hypertension type: unspecified Qualified Code(s): I10 - Essential (primary) hypertension (4) Hypothyroidism Hypothyroidism type: acquired Qualified Code(s): E03.9 - Hypothyroidism, unspecified
[2019-03-28] MEDS: HEPARIN SOD 5,000 UNIT/0.5 ML VIAL SQ SCH (21:26)
[2019-03-28] MEDS: ERTAPENEM SODIUM 1,000 MG in SODIUM CHLORIDE 0.9% 50 ML IV SCH (21:27)
[2019-03-28] MEDS: DAPTOmycin 400 MG in SYRINGE 0 ML IV SCH (21:27)
[2019-03-29 05:26] LABS: Hematocrit (blood only) 28.4 % (42-52); Hemoglobin 9.1 g/dL (14.0-18.0)
[2019-03-29 05:34] LABS: INR 1.2 (0.9-1.1); Prothrombin Time 11.9 Seconds (9.0-12.0)
[2019-03-29 06:03] LABS: Creatinine Clr Calc Pharmacy 101.3 ml/min; Est GFR (African American) 114.8
[2019-03-29] MEDS: LEVOTHYROXINE SODIUM 88 MCG TABLET PO SCH (06:07)
[2019-03-29] MEDS: CHOLECALCIFEROL 1,000 UNITS 25 MCG TAB PO SCH (08:59)
[2019-03-29] MEDS: ATORVASTATIN 10 MG TAB PO SCH (09:00)
[2019-03-29] MEDS: DOCUSATE SODIUM 100 MG CAP PO SCH ×2 (09:00→21:56)
[2019-03-29] MEDS: PANTOprazole 40 MG TAB PO SCH (09:00)
[2019-03-29] MEDS: carvediloL 3.125 MG TAB PO SCH ×2 (09:00→18:06)
[2019-03-29] MEDS: POTASSIUM CHLORIDE 10 MEQ TABCR PO SCH (09:00)
[2019-03-29] MEDS: FERROUS GLUCONATE 324 MG TAB PO SCH (09:00)
[2019-03-29] MEDS: HEPARIN SOD 5,000 UNIT/0.5 ML VIAL SQ SCH ×2 (09:01→21:56)
--- NOTE | 2019-03-29 14:20 | Hospitalist Progress Note ---
Date of Service March 29, 2019 Assessment & Plan (1) Weakness: (2) Ambulatory dysfunction: (3) Jeanne-rectal abscess: Patient is a 78 yr old male with H/O Chronic A. fib anticoagulated on Coumadin, CAD S/P stent, HTN, PAD, chronic venous insufficiency, BPH with chronic bladder outlet obstruction, hypothyroidism, gout, GERD, anemia, history of C. difficile infection who presents with generalized weakness, intermittent confusion and abdominal pain x1 day. Recurrent Perirectal/Perianal Abscess --CT ABD:There is a horseshoe shaped perirectal/perianal abscess identified as detailed above. This communicates anteriorly in the midline and has increased in size from 02/16/2019. There are bilateral fistulous tracts extending inferiorly from the abscess to the median gluteal crease. There is rectosigmoid fecal retention and moderate constipation. Cardiomegaly. Cirrhotic liver morphology. --Blood Culture: No growth to date --Continue IV Daptomycin, Ertapenem Day #4 --Appreciate Surgery Input --Continue Wound Care --Needs Colorectal surgeon upon discharge Metabolic Encephalopathy Head CT:There is no hemorrhage, mass effect, or evidence of acute territorial ischemia by CT criteria. Likely due to above Urine Culture: Skin cosmo Ammonia Level: normal Mental status is improved (4) Normocytic anemia: Anemia of chronic disease, Iron deficiency Hb dropped from baseline Partly dilutional from IV fluids Normal ferritin, vitamin B12, folate level, bilirubin, LDH Mild reticulocytosis Haptoglobin is pending S/P 1 Unit PRBCs Transfuse PRBCs as needed FOBT: Negative Started on iron supplements Coumadin on hold for now Monitor Hb Hb has been stable while on heparin SQ Hypomagnesemia Replace electrolytes as needed (5) Dehydration: Received IV fluids Monitor (6) Afib: Chronic atrial fibrillation INR subtherapeutic Warfarin on hold secondary to worsening anemia On carvedilol for rate control Monitor INR Resume coumadin tomorrow if Hb remains stable (7) CAD (coronary artery disease): Continue carvedilol, statin Coumadin on hold (8) HTN (hypertension): Continue Coreg Resume Spironolactone Monitor (9) Hypokalemia: Replace as needed (10) Hypothyroidism: Normal TSH Continue levothyroxine (11) Dyslipidemia: Continue statin (12) Chronic venous insufficiency: b/l chronic venous stasis changes Monitor (13) BPH (benign prostatic hyperplasia): Patient follows with [facility] urology Dr. Mendez Bladder scan as needed (14) DVT prophylaxis: Heparin SQ Plan to resume coumadin as able Disposition: PT/OT prior to discharge Follow-up: PCP Dr. Magaña upon discharge Subjective Patient is seen and examined at bedside Mental status continues to improve Denies any rectal pain More oriented today Denies any chest pain, shortness of breath, dizziness, abd pain Hb stable with Heparin SQ trial Review of Systems Review of Systems: All systems reviewed & are unremarkable except as noted in HPI & below Physical Exam Physical Exam: Physical Exam: Vitals signs as noted above General Appearance: Chronically appearing, no apparent distress Head: normocephalic, Atraumatic Eyes: normal inspection, EOMI Neck: supple, Trachea midline Respiratory/Chest: Normal breath sounds, CTA Cardiovascular: Irregularly irregular, No murmur Abdomen/GI:Soft, mild tender, no guarding or rigidity, bowel sounds present : Erythematous rectum Extremities/Musculoskelatal:normal inspection, chronic bilateral venous stasis changes Neurologic/Psych:AAOX3, grossly no focal neurological deficits Skin: normal color, warm Results & Data Vital Signs (Past 12 Hours) Vital Signs Temp Pulse Resp BP Pulse Ox 03/29/19 07:28 36.8 C 60 16 149/82 H 98 Laboratory Results Short CBC 03/29/19 Range/Units 04:31 Hgb 9.1 L (14.0-18.0) g/dL Hct 28.4 L (42-52) % BMP 03/29/19 04:31 Creatinine 0.58 L (1) Afib Atrial fibrillation type: unspecified Qualified Code(s): I48.91 - Unspecified atrial fibrillation (2) CAD (coronary artery disease) Associated angina: with stable angina Coronary Disease-Associated Artery/Lesion type: [place] artery [place] vs. transplanted heart: [place] heart Qualified Code(s): I25.118 - Atherosclerotic heart disease of [place] coronary artery with other forms of angina pectoris (3) HTN (hypertension) Hypertension type: unspecified Qualified Code(s): I10 - Essential (primary) hypertension (4) Hypothyroidism Hypothyroidism type: acquired Qualified Code(s): E03.9 - Hypothyroidism, unspecified
[2019-03-29] MEDS: DIGOXIN 0.125 MG TAB PO SCH (18:07)
[2019-03-29] MEDS: SPIRONOLACTONE 25 MG TAB PO SCH (18:15)
[2019-03-29] MEDS: DAPTOmycin 400 MG in SYRINGE 0 ML IV SCH (21:55)
[2019-03-29] MEDS: ERTAPENEM SODIUM 1,000 MG in SODIUM CHLORIDE 0.9% 50 ML IV SCH (21:55)
[2019-03-30] MEDS: LEVOTHYROXINE SODIUM 88 MCG TABLET PO SCH (06:04)
[2019-03-30 07:04] LABS: Hemoglobin 8.5 g/dL (14.0-18.0)
[2019-03-30 07:13] LABS: INR 1.1 (0.9-1.1); Prothrombin Time 11.3 Seconds (9.0-12.0)
[2019-03-30] MEDS: DOCUSATE SODIUM 100 MG CAP PO SCH ×2 (08:32→20:58)
[2019-03-30] MEDS: HEPARIN SOD 5,000 UNIT/0.5 ML VIAL SQ SCH ×2 (09:05→21:00)
[2019-03-30] MEDS: carvediloL 3.125 MG TAB PO SCH ×2 (09:05→16:58)
[2019-03-30] MEDS: ATORVASTATIN 10 MG TAB PO SCH (09:05)
[2019-03-30] MEDS: FERROUS GLUCONATE 324 MG TAB PO SCH (09:05)
[2019-03-30] MEDS: POTASSIUM CHLORIDE 10 MEQ TABCR PO SCH (09:05)
[2019-03-30] MEDS: CHOLECALCIFEROL 1,000 UNITS 25 MCG TAB PO SCH (09:06)
[2019-03-30] MEDS: SPIRONOLACTONE 25 MG TAB PO SCH ×2 (09:06→16:56)
[2019-03-30] MEDS: PANTOprazole 40 MG TAB PO SCH (09:06)
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
--- NOTE | 2019-03-30 14:48 | Ultrasound Report ---
BILATERAL LOWER EXTREMITY VENOUS DOPPLER HISTORY: Leg swelling. History of DVT. COMPARISON STUDY: Right leg venous Doppler 11/28/2018. FINDINGS: Small linear areas of echogenic stranding within the bilateral popliteal veins consistent w ith nonocclusive chronic thrombus. The remaining bilateral lower extremity venous structures are francisco nt. No evidence for acute DVT. IMPRESSION: 1. Chronic nonocclusive thrombus within the bilateral popliteal veins. 2. No acute DVT within the right or left lower extremity. Electronically signed by: Rudy Cheatham M.D. 03/30/2019 2:47 PM
[2019-03-30] MEDS: WARFARIN SOD 5 MG TAB PO SCH (16:55)
[2019-03-30] MEDS: DIGOXIN 0.125 MG TAB PO SCH (16:58)
--- NOTE | 2019-03-30 18:30 | Hospitalist Progress Note ---
Date of Service March 30, 2019 Assessment & Plan (1) Weakness: (2) Ambulatory dysfunction: (3) Jeanne-rectal abscess: Patient is a 78 yr old male with H/O Chronic A. fib anticoagulated on Coumadin, CAD S/P stent, HTN, PAD, chronic venous insufficiency, BPH with chronic bladder outlet obstruction, hypothyroidism, gout, GERD, anemia, history of C. difficile infection who presents with generalized weakness, intermittent confusion and abdominal pain x1 day. Recurrent Perirectal/Perianal Abscess --CT ABD:There is a horseshoe shaped perirectal/perianal abscess identified as detailed above. This communicates anteriorly in the midline and has increased in size from 02/16/2019. There are bilateral fistulous tracts extending inferiorly from the abscess to the median gluteal crease. There is rectosigmoid fecal retention and moderate constipation. Cardiomegaly. Cirrhotic liver morphology. --Blood Culture: No growth to date --Continue IV Daptomycin, Ertapenem Day #5 --Appreciate Surgery, ID Input --Continue Wound Care --Continue IV antibiotics while hospitalized --Transition to p.o. Levaquin, Zyvox upon discharge--need 4-week course of therapy --Needs Colorectal surgeon upon discharge Metabolic Encephalopathy--resolved Head CT:There is no hemorrhage, mass effect, or evidence of acute territorial ischemia by CT criteria. Likely due to above Urine Culture: Skin cosmo Ammonia Level: normal Monitor (4) Normocytic anemia: Anemia of chronic disease, Iron deficiency Hb dropped from baseline Partly dilutional from IV fluids Normal ferritin, vitamin B12, folate level, bilirubin, LDH, haptoglobin Mild reticulocytosis S/P 1 Unit PRBCs Transfuse PRBCs as needed FOBT: Negative Started on iron supplements Monitor Hb Hypomagnesemia Replace electrolytes as needed (5) Dehydration: Received IV fluids Monitor (6) Afib: Chronic atrial fibrillation INR subtherapeutic Warfarin on hold secondary to worsening anemia On carvedilol for rate control Monitor INR Resume coumadin today Continue SQ heparin until INR is therapeutic (7) CAD (coronary artery disease): Continue carvedilol, statin Coumadin on hold (8) HTN (hypertension): Continue Coreg, Spironolactone Monitor (9) Hypokalemia: Replace as needed (10) Hypothyroidism: Normal TSH Continue levothyroxine (11) Dyslipidemia: Continue statin (12) Chronic venous insufficiency: b/l chronic venous stasis changes Continue home diuretic Monitor (13) BPH (benign prostatic hyperplasia): Patient follows with [facility] [place]. Mendez Bladder scan as needed (14) DVT prophylaxis: Coumadin Continue Heparin SQ until INR is therapeutic Disposition: PT/OT prior to discharge Follow-up: PCP Dr. Magaña upon discharge Needs colorectal surgeon evaluation upon discharge Subjective Patient is seen and examined at bedside Subjectively feels better Discussed with ID today Mental status seemed to be back to baseline Denies any chest pain, shortness of breath, dizziness, abd pain, perianal/ sacral pain Doppler shows chronic nonocclusive deep vein thrombosis Review of Systems Review of Systems: All systems reviewed & are unremarkable except as noted in HPI & below Physical Exam Physical Exam: Physical Exam: Vitals signs as noted above General Appearance: Chronically appearing, no apparent distress Head: normocephalic, Atraumatic Eyes: normal inspection, EOMI Neck: supple, Trachea midline Respiratory/Chest: Normal breath sounds, CTA Cardiovascular: Irregularly irregular, No murmur Abdomen/GI:Soft, non tender, no guarding or rigidity, bowel sounds present : Erythematous perianal, Extremities/Musculoskelatal:normal inspection, chronic bilateral venous stasis changes, Edema Neurologic/Psych:AAOX3, grossly no focal neurological deficits Skin: normal color, warm Results & Data Vital Signs (Past 12 Hours) Vital Signs Temp Pulse Pulse Resp BP BP Pulse Ox 03/30/19 16:58 64 03/30/19 15:43 36.7 C 61 17 123/73 98 03/30/19 07:06 36.5 C 68 16 126/78 98 Laboratory Results Short CBC 03/30/19 Range/Units 06:34 Hgb 8.5 L (14.0-18.0) g/dL Hct 27.0 L (42-52) % (1) Afib Atrial fibrillation type: unspecified Qualified Code(s): I48.91 - Unspecified atrial fibrillation (2) CAD (coronary artery disease) Associated angina: with stable angina Coronary Disease-Associated Artery/Lesion type: [place] artery [place] vs. transplanted heart: [place] heart Qualified Code(s): I25.118 - Atherosclerotic heart disease of [place] coronary artery with other forms of angina pectoris (3) HTN (hypertension) Hypertension type: unspecified Qualified Code(s): I10 - Essential (primary) hypertension (4) Hypothyroidism Hypothyroidism type: acquired Qualified Code(s): E03.9 - Hypothyroidism, unspecified
[2019-03-30] MEDS: ERTAPENEM SODIUM 1,000 MG in SODIUM CHLORIDE 0.9% 50 ML IV SCH (20:58)
[2019-03-30] MEDS: DAPTOmycin 400 MG in SYRINGE 0 ML IV SCH (20:58)
[2019-03-31] MEDS: LEVOTHYROXINE SODIUM 88 MCG TABLET PO SCH (05:31)
[2019-03-31 05:53] LABS: Hematocrit (blood only) 30.6 % (42-52); Hemoglobin 9.8 g/dL (14.0-18.0)
[2019-03-31 06:08] LABS: INR 1.1 (0.9-1.1); Prothrombin Time 11.1 Seconds (9.0-12.0)
[2019-03-31 06:28] LABS: BUN Creatinine Ratio 14.8 (10-20); Calcium 8.7 mg/dl (8.5-10.1); Creatinine Clr Calc Pharmacy 103.1 ml/min; Est GFR (African American) 115.6; Est GFR (Non-African American) 99.7; Potassium 3.7 mmol/L (3.5-5.1)
[2019-03-31] MEDS: CHOLECALCIFEROL 1,000 UNITS 25 MCG TAB PO SCH (08:58)
[2019-03-31] MEDS: ATORVASTATIN 10 MG TAB PO SCH (08:58)
[2019-03-31] MEDS: DOCUSATE SODIUM 100 MG CAP PO SCH ×2 (08:59→21:10)
[2019-03-31] MEDS: carvediloL 3.125 MG TAB PO SCH ×2 (08:59→16:10)
[2019-03-31] MEDS: HEPARIN SOD 5,000 UNIT/0.5 ML VIAL SQ SCH ×2 (08:59→21:10)
[2019-03-31] MEDS: POTASSIUM CHLORIDE 10 MEQ TABCR PO SCH (08:59)
[2019-03-31] MEDS: PANTOprazole 40 MG TAB PO SCH (08:59)
[2019-03-31] MEDS: SPIRONOLACTONE 25 MG TAB PO SCH ×2 (08:59→16:11)
[2019-03-31] MEDS: FERROUS GLUCONATE 324 MG TAB PO SCH (08:59)
--- NOTE | 2019-03-31 15:57 | Hospitalist Progress Note ---
Date of Service March 31, 2019 Assessment & Plan (1) Weakness: (2) Ambulatory dysfunction: (3) Jeanne-rectal abscess: Patient is a 78 yr old male with H/O Chronic A. fib anticoagulated on Coumadin, CAD S/P stent, HTN, PAD, chronic venous insufficiency, BPH with chronic bladder outlet obstruction, hypothyroidism, gout, GERD, anemia, history of C. difficile infection who presents with generalized weakness, intermittent confusion and abdominal pain x1 day. Recurrent Perirectal/Perianal Abscess --CT ABD:There is a horseshoe shaped perirectal/perianal abscess identified as detailed above. This communicates anteriorly in the midline and has increased in size from 02/16/2019. There are bilateral fistulous tracts extending inferiorly from the abscess to the median gluteal crease. There is rectosigmoid fecal retention and moderate constipation. Cardiomegaly. Cirrhotic liver morphology. --Blood Culture: No growth to date --Continue IV Daptomycin, Ertapenem Day #6 --Appreciate Surgery, ID Input --Continue Wound Care --Continue IV antibiotics while hospitalized --Transition to p.o. Levaquin, Zyvox upon discharge--needs to complete 4-week course of antibiotic therapy --Needs Colorectal surgeon upon discharge--patient's son prefers to follow-up with colorectal surgeon in [place] currently --Slowly improving Metabolic Encephalopathy--resolved Head CT:There is no hemorrhage, mass effect, or evidence of acute territorial ischemia by CT criteria. Likely due to above Urine Culture: Skin cosmo Ammonia Level: normal Monitor (4) Normocytic anemia: Anemia of chronic disease, Iron deficiency Hb dropped from baseline Partly dilutional from IV fluids Normal ferritin, vitamin B12, folate level, bilirubin, LDH, haptoglobin Mild reticulocytosis S/P 1 Unit PRBCs Transfuse PRBCs as needed FOBT: Negative Started on iron supplements Monitor Hb Hemoglobin stable Hypomagnesemia Resolved Replace electrolytes as needed (5) Dehydration: Received IV fluids Monitor (6) Afib: Chronic atrial fibrillation INR subtherapeutic Warfarin on hold secondary to worsening anemia On carvedilol for rate control Monitor INR: 1.1 Coumadin was resumed yesterday Continue Coumadin Continue SQ heparin until INR is therapeutic (7) CAD (coronary artery disease): Continue carvedilol, statin On Coumadin (8) HTN (hypertension): Continue Coreg, Spironolactone Monitor (9) Hypokalemia: Resolved Replace as needed (10) Hypothyroidism: Normal TSH Continue levothyroxine (11) Dyslipidemia: Continue statin (12) Chronic venous insufficiency: b/l chronic venous stasis changes Continue home diuretic Monitor (13) BPH (benign prostatic hyperplasia): Patient follows with [facility] [place] urology Dr. Mendez Bladder scan as needed (14) DVT prophylaxis: Coumadin Continue Heparin SQ until INR is therapeutic Disposition: Follow-up: PCP Dr. Magaña upon discharge Needs close follow-up with colorectal surgeon upon discharge Subjective Patient is seen and examined at bedside States having leg pain which is chronic Had PT OT earlier today Offers no other complaints Discussed with patient's son in detail today Sitting in chair comfortably this morning Denies any chest pain, shortness of breath, dizziness, abd pain, perianal/ sacral pain Review of Systems Review of Systems: All systems reviewed & are unremarkable except as noted in HPI & below Physical Exam Physical Exam: Physical Exam: Vitals signs as noted above General Appearance: Chronically appearing, no apparent distress Head: normocephalic, Atraumatic Eyes: normal inspection, EOMI Neck: supple, Trachea midline Respiratory/Chest: Normal breath sounds, CTA Cardiovascular: Irregularly irregular, No murmur Abdomen/GI:Soft, non tender, no guarding or rigidity, bowel sounds present : Erythematous perianal, Extremities/Musculoskelatal:normal inspection, chronic bilateral venous stasis changes, Edema Neurologic/Psych:AAOX3, grossly no focal neurological deficits Skin: normal color, warm Results & Data Vital Signs (Past 12 Hours) Vital Signs Temp Pulse Resp BP Pulse Ox 03/31/19 07:11 36.6 C 80 18 159/88 H 95 Laboratory Results Short CBC 03/31/19 Range/Units 05:27 Hgb 9.8 L (14.0-18.0) g/dL Hct 30.6 L (42-52) % BMP 03/31/19 05:27 Sodium 135 L Potassium 3.7 Chloride 100 Carbon Dioxide 31 BUN 8 Creatinine 0.57 L Glucose 84 Calcium 8.7 (1) Afib Atrial fibrillation type: unspecified Qualified Code(s): I48.91 - Unspecified atrial fibrillation (2) CAD (coronary artery disease) Associated angina: with stable angina Coronary Disease-Associated Artery/Lesion type: [place] artery [place] vs. transplanted heart: [place] heart Qualified Code(s): I25.118 - Atherosclerotic heart disease of [place] coronary artery with other forms of angina pectoris (3) HTN (hypertension) Hypertension type: unspecified Qualified Code(s): I10 - Essential (primary) hypertension (4) Hypothyroidism Hypothyroidism type: acquired Qualified Code(s): E03.9 - Hypothyroidism, unspecified
[2019-03-31] MEDS: WARFARIN SOD 5 MG TAB PO SCH (16:11)
[2019-03-31] MEDS: DIGOXIN 0.125 MG TAB PO SCH (16:11)
[2019-03-31] MEDS: DAPTOmycin 400 MG in SYRINGE 0 ML IV SCH (21:10)
[2019-03-31] MEDS: ERTAPENEM SODIUM 1,000 MG in SODIUM CHLORIDE 0.9% 50 ML IV SCH (22:42)
[2019-04-01] MEDS: LEVOTHYROXINE SODIUM 88 MCG TABLET PO SCH ×2 (05:49→05:52)
[2019-04-01 06:42] LABS: Hematocrit (blood only) 30.7 % (42-52); Hemoglobin 9.9 g/dL (14.0-18.0)
[2019-04-01 06:51] LABS: INR 1.2 (0.9-1.1); Prothrombin Time 11.9 Seconds (9.0-12.0)
[2019-04-01] MEDS: CHOLECALCIFEROL 1,000 UNITS 25 MCG TAB PO SCH (09:34)
[2019-04-01] MEDS: ATORVASTATIN 10 MG TAB PO SCH (09:34)
[2019-04-01] MEDS: carvediloL 3.125 MG TAB PO SCH ×2 (09:34→17:04)
[2019-04-01] MEDS: SPIRONOLACTONE 25 MG TAB PO SCH ×2 (09:35→17:03)
[2019-04-01] MEDS: PANTOprazole 40 MG TAB PO SCH (09:35)
[2019-04-01] MEDS: FERROUS GLUCONATE 324 MG TAB PO SCH (09:35)
[2019-04-01] MEDS: HEPARIN SOD 5,000 UNIT/0.5 ML VIAL SQ SCH ×2 (09:35→20:38)
[2019-04-01] MEDS: POTASSIUM CHLORIDE 10 MEQ TABCR PO SCH (09:35)
[2019-04-01] MEDS: DOCUSATE SODIUM 100 MG CAP PO SCH ×2 (09:35→20:37)
[2019-04-01] MEDS: WARFARIN SOD 5 MG TAB PO SCH (17:02)
[2019-04-01] MEDS: DIGOXIN 0.125 MG TAB PO SCH (17:02)
[2019-04-01] MEDS: ERTAPENEM SODIUM 1,000 MG in SODIUM CHLORIDE 0.9% 50 ML IV SCH (20:37)
[2019-04-01] MEDS: DAPTOmycin 400 MG in SYRINGE 0 ML IV SCH (20:37)
--- NOTE | 2019-04-01 22:52 | Hospitalist Progress Note ---
Date of Service April 01, 2019 Assessment & Plan (1) Jeanne-rectal abscess: Chronic/recurrent perirectal abscess with fistulae. Blood cultures negative. Wound cultures from November of this year grew Enterococcus faecium (VRE) and Citrobacter braakii. Seen in consultation by General Surgery and ID. IV antibiotic therapy with daptomycin and ertapenem recommended followed by oral therapy with levofloxacin and linezolid. Referral to Colorectal Surgery recommended. (2) Perirectal fistula: As noted above. (3) Acute confusion: Metabolic encephalopathy secondary to infection. Improved. (4) CAD (coronary artery disease): No anginal symptoms. Continue carvedilol. Resume statin once daptomycin discontinued. (5) Afib: Rate controlled on digoxin and carvedilol. Continue anticoagulation with warfarin. (6) HTN (hypertension): Continue carvedilol and spironolactone. (7) Dyslipidemia: Hold statin while receiving daptomycin. (8) Hypothyroidism: TSH normal. Continue levothyroxine. (9) Anemia: Normocytic anemia, at least partly secondary to chronic infection. Hemoglobin 8.7 at time of admission and fell as low as 7.4. Serum iron 24, TIBC 251, ferritin 143. Vitamin B12, folic acid, and TSH normal. Transfuse with 1 unit of packed RBCs. Hemoglobin today = 9.9. (10) Dementia: Monitor for delirium. (11) Do not resuscitate status: As noted. (12) DVT prophylaxis: Continue warfarin. (13) Discharge planning issues: Anticipated discharge to home. Primary care follow-up with Dr. Magaña. Referral to Colorectal Surgery recommended. Subjective Recheck for multiple problems. Patient seen in their room around 1400. Doing fairly well. Last documented fever was on 03/28. Intermittent lower abdominal discomfort. Review of Systems: Constitutional- no fever. Cardiac- no chest pain. Pulmonary- no cough or SOB. GI- as noted above. - no urinary symptoms. Otherwise, as noted above. Physical Exam Constitutional: no acute distress Respiratory: no respiratory distress Auscultation: lungs clear to auscultation bilaterally Cardiovascular: Rate/Rhythm: regular rate and regular rhythm Heart Sounds: no gallop Vessels: no JVD Extremities: + edema (1+ pretibial); no calf tenderness Gastrointestinal (Abdomen): normal bowel sounds, soft, nontender, no hepatosplenomegaly Skin: + rash (chronic venous stasis changes lower extremities) Psychiatric: Orientation: alert; + not oriented x 3 (oriented to person, hospital, not year or president) Results & Data Vital Signs (Past 12 Hours) Vital Signs Temp Pulse Pulse Resp BP Pulse Ox 04/01/19 17:04 66 105/62 04/01/19 17:02 66 04/01/19 15:44 36.4 C L 68 18 117/71 98 Laboratory Results Laboratory Results - last 24 hr 04/01/19 04/01/19 04/01/19 05:38 05:38 13:09 Hgb 9.9 L Hct 30.7 L PT 11.9 INR 1.2 H Total Creatine Kinase 34 L Microbiology 03/26/19 21:18 Blood Aerobic Blood Culture - Final No growth in Aerobic bottle after 5 days. 03/26/19 21:18 Blood Anaerobic Blood Culture - Final No growth in Anaerobic bottle after 5 days. 03/26/19 21:10 Blood Aerobic Blood Culture - Final No growth in Aerobic bottle after 5 days. 03/26/19 21:10 Blood Anaerobic Blood Culture - Final No growth in Anaerobic bottle after 5 days. (1) CAD (coronary artery disease) Associated angina: with stable angina Coronary Disease-Associated Artery/Lesion type: [place] artery [place] vs. transplanted heart: [place] heart Qualified Code(s): I25.118 - Atherosclerotic heart disease of [place] coronary artery with other forms of angina pectoris (2) Afib Atrial fibrillation type: unspecified Qualified Code(s): I48.91 - Unspecified atrial fibrillation (3) HTN (hypertension) Hypertension type: unspecified Qualified Code(s): I10 - Essential (primary) hypertension (4) Hypothyroidism Hypothyroidism type: acquired Qualified Code(s): E03.9 - Hypothyroidism, unspecified (5) Anemia Anemia type: unspecified type Qualified Code(s): D64.9 - Anemia, unspecified
[2019-04-02] MEDS: LEVOTHYROXINE SODIUM 88 MCG TABLET PO SCH (05:45)
[2019-04-02] MEDS: HEPARIN SOD 5,000 UNIT/0.5 ML VIAL SQ SCH ×2 (08:33→21:04)
[2019-04-02] MEDS: DOCUSATE SODIUM 100 MG CAP PO SCH ×2 (08:36→21:04)
[2019-04-02] MEDS: SPIRONOLACTONE 25 MG TAB PO SCH ×2 (08:36→17:04)
[2019-04-02] MEDS: carvediloL 3.125 MG TAB PO SCH ×2 (08:36→17:04)
[2019-04-02] MEDS: POTASSIUM CHLORIDE 10 MEQ TABCR PO SCH (08:37)
[2019-04-02] MEDS: FERROUS GLUCONATE 324 MG TAB PO SCH (08:37)
[2019-04-02] MEDS: ATORVASTATIN 10 MG TAB PO SCH (08:37)
[2019-04-02] MEDS: CHOLECALCIFEROL 1,000 UNITS 25 MCG TAB PO SCH (08:37)
[2019-04-02] MEDS: PANTOprazole 40 MG TAB PO SCH (08:37)
[2019-04-02 08:55] LABS: INR 1.3 (0.9-1.1); Prothrombin Time 13.2 Seconds (9.0-12.0)
[2019-04-02] MEDS: WARFARIN SOD 5 MG TAB PO SCH (15:42)
[2019-04-02] MEDS: DIGOXIN 0.125 MG TAB PO SCH (15:42)
[2019-04-02] MEDS: DAPTOmycin 400 MG in SYRINGE 0 ML IV SCH (19:36)
[2019-04-02] MEDS: ERTAPENEM SODIUM 1,000 MG in SODIUM CHLORIDE 0.9% 50 ML IV SCH (19:37)
--- NOTE | 2019-04-02 20:06 | Hospitalist Progress Note ---
Date of Service April 02, 2019 Assessment & Plan (1) Jeanne-rectal abscess: Chronic/recurrent perirectal abscess with fistulae. Blood cultures negative. Wound cultures from November of this year grew Enterococcus faecium (VRE) and Citrobacter braakii. Seen in consultation by General Surgery and ID. IV antibiotic therapy with daptomycin and ertapenem recommended followed by oral therapy with levofloxacin and linezolid. Referral to Colorectal Surgery recommended. (2) Perirectal fistula: As noted above. (3) Acute confusion: Metabolic encephalopathy secondary to infection. Improved. (4) CAD (coronary artery disease): No anginal symptoms. Continue carvedilol. Resume statin once daptomycin discontinued. (5) Afib: Rate controlled on digoxin and carvedilol. Continue anticoagulation with warfarin. (6) HTN (hypertension): Continue carvedilol and spironolactone. (7) Dyslipidemia: Hold statin while receiving daptomycin. (8) Hypothyroidism: TSH normal. Continue levothyroxine. (9) Anemia: Normocytic anemia, at least partly secondary to chronic infection. Hemoglobin 8.7 at time of admission and fell as low as 7.4. Serum iron 24, TIBC 251, ferritin 143. Vitamin B12, folic acid, and TSH normal. Transfuse with 1 unit of packed RBCs. Hemoglobin 12/11 = 9.9. (10) Dementia: Monitor for delirium. (11) Do not resuscitate status: As noted. (12) DVT prophylaxis: Continue warfarin. (13) Discharge planning issues: Anticipated discharge to home. Primary care follow-up with Dr. Magaña. Referral to Colorectal Surgery recommended. Subjective Recheck for multiple problems. Patient seen in their room around 1110. Confused. Incontinent of soft stool this morning. Denies abdominal or perirectal pain. Review of Systems: Constitutional- no fever. Cardiac- no chest pain. Pulmonary- no cough or SOB. GI- as noted above. - incontinent of urine. Otherwise, as noted above. Physical Exam Constitutional: no acute distress Respiratory: no respiratory distress Auscultation: lungs clear to auscultation bilaterally Cardiovascular: Rate/Rhythm: regular rate and regular rhythm Heart Sounds: no gallop Vessels: no JVD Extremities: + edema (1+ pretibial); no calf tenderness Gastrointestinal (Abdomen): normal bowel sounds, soft, nontender, no hepatosplenomegaly Skin: + rash (chronic venous stasis changes lower extremities) Psychiatric: Orientation: alert; + not oriented x 3 (oriented to person, hospital, not year or president) Results & Data Vital Signs (Past 12 Hours) Vital Signs Temp Pulse Pulse Pulse Resp BP Pulse Ox 04/02/19 17:02 77 118/77 97 04/02/19 15:42 73 04/02/19 15:04 36.5 C 87 16 145/92 H 95 Laboratory Results Laboratory Results - last 24 hr 04/02/19 08:13 PT 13.2 H INR 1.3 H (1) CAD (coronary artery disease) Associated angina: with stable angina Coronary Disease-Associated Artery/Lesion type: [place] artery [place] vs. transplanted heart: [place] heart Qualified Code(s): I25.118 - Atherosclerotic heart disease of [place] coronary artery with other forms of angina pectoris (2) Afib Atrial fibrillation type: unspecified Qualified Code(s): I48.91 - Unspecified atrial fibrillation (3) HTN (hypertension) Hypertension type: unspecified Qualified Code(s): I10 - Essential (primary) hypertension (4) Hypothyroidism Hypothyroidism type: acquired Qualified Code(s): E03.9 - Hypothyroidism, unspecified (5) Anemia Anemia type: unspecified type Qualified Code(s): D64.9 - Anemia, unspecified
[2019-04-03] MEDS: LEVOTHYROXINE SODIUM 88 MCG TABLET PO SCH (05:43)
[2019-04-03 08:01] LABS: Hematocrit (blood only) 33.8 % (42-52); Hemoglobin 10.9 g/dL (14.0-18.0); Mean Corpuscular Hemoglobin 28.8 pg (25-34); Mean Corpuscular Hgb Conc 32.2 g/dL (32-36); Mean Corpuscular Volume 89.2 fL (80-100); Mean Platelet Volume 9.6 fL (7.4-10.4); Platelet Count 302 K/uL (130-400); RDW Coefficient of Variation 18.1 % (11.5-14.5); RDW Standard Deviation 58.6 fL (36.4-46.3); Red Blood Count 3.79 M/uL (4.7-6.1); White Blood Count 5.71 K/uL (4.8-10.8)
[2019-04-03 08:17] LABS: INR 1.5 (0.9-1.1); Prothrombin Time 14.6 Seconds (9.0-12.0)
[2019-04-03 08:36] LABS: BUN Creatinine Ratio 16.7 (10-20); Calcium 9.6 mg/dl (8.5-10.1); Creatinine Clr Calc Pharmacy 82.7 ml/min; Est GFR (African American) 106.2; Est GFR (Non-African American) 91.7; Potassium 4.5 mmol/L (3.5-5.1)
[2019-04-03] MEDS: HEPARIN SOD 5,000 UNIT/0.5 ML VIAL SQ SCH ×2 (08:57→21:30)
[2019-04-03] MEDS: PANTOprazole 40 MG TAB PO SCH (08:58)
[2019-04-03] MEDS: FERROUS GLUCONATE 324 MG TAB PO SCH (08:58)
[2019-04-03] MEDS: DOCUSATE SODIUM 100 MG CAP PO SCH ×2 (08:58→21:29)
[2019-04-03] MEDS: CHOLECALCIFEROL 1,000 UNITS 25 MCG TAB PO SCH (08:58)
[2019-04-03] MEDS: POTASSIUM CHLORIDE 10 MEQ TABCR PO SCH (08:58)
[2019-04-03] MEDS: carvediloL 3.125 MG TAB PO SCH ×2 (08:58→16:22)
[2019-04-03] MEDS: SPIRONOLACTONE 25 MG TAB PO SCH ×2 (08:59→16:22)
[2019-04-03] MEDS: WARFARIN SOD 5 MG TAB PO SCH (16:21)
[2019-04-03] MEDS: DIGOXIN 0.125 MG TAB PO SCH (16:22)
--- NOTE | 2019-04-03 20:29 | Hospitalist Progress Note ---
Date of Service April 03, 2019 Assessment & Plan (1) Jeanne-rectal abscess: Chronic/recurrent perirectal abscess with fistulae. Blood cultures negative. Wound cultures from November of this year grew Enterococcus faecium (VRE) and Citrobacter braakii. Seen in consultation by General Surgery and ID. IV antibiotic therapy with daptomycin and ertapenem recommended followed by oral therapy with levofloxacin and linezolid. Referral to Colorectal Surgery recommended. Spoke with Colorectal Surgery at [facility]- they are happy to see patient in clinic. (2) Perirectal fistula: As noted above. (3) Acute confusion: Metabolic encephalopathy secondary to infection. Improved. (4) CAD (coronary artery disease): No anginal symptoms. Continue carvedilol. Resume statin once daptomycin discontinued. (5) Afib: Rate controlled on digoxin and carvedilol. Continue anticoagulation with warfarin. (6) HTN (hypertension): Continue carvedilol and spironolactone. (7) Dyslipidemia: Hold statin while receiving daptomycin. (8) Hypothyroidism: TSH normal. Continue levothyroxine. (9) Anemia: Normocytic anemia, at least partly secondary to chronic infection. Hemoglobin 8.7 at time of admission and fell as low as 7.4. Serum iron 24, TIBC 251, ferritin 143. Vitamin B12, folic acid, and TSH normal. Transfuse with 1 unit of packed RBCs. Hemoglobin today = 10.9. (10) Dementia: Monitor for delirium. (11) Do not resuscitate status: As noted. (12) DVT prophylaxis: Continue warfarin. (13) Discharge planning issues: Anticipated discharge to home. Primary care follow-up with Dr. Magaña. Referral to Colorectal Surgery recommended. Jagdish Raygoza given update by phone. Subjective Recheck for multiple problems. Patient seen in their room around 1710. Nursing staff reports increased strength. Ambulating short distance with walker and contact guard. No new concerns. No abdominal pain, nausea, vomiting, diarrhea. Review of Systems: Constitutional- no fever. Cardiac- no chest pain. Pulmonary- no cough or SOB. GI- as noted above. - no urinary symptoms.. Otherwise, as noted above. Physical Exam Constitutional: no acute distress Respiratory: no respiratory distress Auscultation: lungs clear to auscultation bilaterally Cardiovascular: Rate/Rhythm: + irregularly irregular Heart Sounds: no gallop Vessels: no JVD Extremities: + edema (1+ pretibial); no calf tenderness Gastrointestinal (Abdomen): normal bowel sounds, soft, nontender, no hepatosplenomegaly Skin: + rash (chronic venous stasis changes lower extremities) Psychiatric: Orientation: alert; + not oriented x 3 Results & Data Vital Signs (Past 12 Hours) Vital Signs Temp Pulse Pulse Pulse Resp BP BP 04/03/19 16:22 70 04/03/19 15:37 36.2 C L 72 16 115/69 04/03/19 08:56 97 H 133/58 L Pulse Ox 04/03/19 16:22 04/03/19 15:37 99 04/03/19 08:56 Laboratory Results 04/03/19 07:29 04/03/19 07:29 (1) CAD (coronary artery disease) Associated angina: with stable angina Coronary Disease-Associated Artery/Lesion type: [place] artery [place] vs. transplanted heart: [place] heart Qualified Code(s): I25.118 - Atherosclerotic heart disease of [place] coronary artery with other forms of angina pectoris (2) Afib Atrial fibrillation type: unspecified Qualified Code(s): I48.91 - Unspecified atrial fibrillation (3) HTN (hypertension) Hypertension type: unspecified Qualified Code(s): I10 - Essential (primary) hypertension (4) Hypothyroidism Hypothyroidism type: acquired Qualified Code(s): E03.9 - Hypothyroidism, unspecified (5) Anemia Anemia type: unspecified type Qualified Code(s): D64.9 - Anemia, unspecified
[2019-04-03] MEDS: ERTAPENEM SODIUM 1,000 MG in SODIUM CHLORIDE 0.9% 50 ML IV SCH (21:29)
[2019-04-03] MEDS: DAPTOmycin 400 MG in SYRINGE 0 ML IV SCH (21:29)
[2019-04-04] MEDS: LEVOTHYROXINE SODIUM 88 MCG TABLET PO SCH (06:08)
[2019-04-04 09:01] LABS: INR 1.7 (0.9-1.1); Prothrombin Time 16.4 Seconds (9.0-12.0)
[2019-04-04] MEDS: PANTOprazole 40 MG TAB PO SCH (09:21)
[2019-04-04] MEDS: FERROUS GLUCONATE 324 MG TAB PO SCH (09:21)
[2019-04-04] MEDS: CHOLECALCIFEROL 1,000 UNITS 25 MCG TAB PO SCH (09:21)
[2019-04-04] MEDS: HEPARIN SOD 5,000 UNIT/0.5 ML VIAL SQ SCH ×2 (09:21→20:20)
[2019-04-04] MEDS: carvediloL 3.125 MG TAB PO SCH ×2 (09:22→16:17)
[2019-04-04] MEDS: SPIRONOLACTONE 25 MG TAB PO SCH ×2 (09:22→16:17)
[2019-04-04] MEDS: DOCUSATE SODIUM 100 MG CAP PO SCH ×2 (09:22→20:20)
[2019-04-04] MEDS: POTASSIUM CHLORIDE 10 MEQ TABCR PO SCH (09:22)
[2019-04-04 15:01] VITALS: TEMP 97.9
[2019-04-04] MEDS: WARFARIN SOD 5 MG TAB PO SCH (16:14)
[2019-04-04] MEDS: DIGOXIN 0.125 MG TAB PO SCH (16:15)
--- NOTE | 2019-04-04 16:40 | Hospitalist Progress Note ---
Date of Service April 04, 2019 Assessment & Plan (1) Jeanne-rectal abscess: Chronic/recurrent perirectal abscess with fistulae. Blood cultures negative. Wound cultures from November of this year grew Enterococcus faecium (VRE) and Citrobacter braakii. Seen in consultation by General Surgery and ID. IV antibiotic therapy with daptomycin and ertapenem recommended followed by oral therapy with levofloxacin and linezolid. Referral to Colorectal Surgery recommended. Spoke with Colorectal Surgery at [facility]- they are happy to see patient in clinic. Jagdish Raygoza indicates that there may be a colorectal surgeon in [place] as well. (2) Perirectal fistula: As noted above. (3) Acute confusion: Metabolic encephalopathy secondary to infection. Improved, but still confused. (4) CAD (coronary artery disease): No anginal symptoms. Continue carvedilol. Resume statin once daptomycin discontinued. (5) Afib: Rate controlled on digoxin and carvedilol. Continue anticoagulation with warfarin. (6) HTN (hypertension): Continue carvedilol and spironolactone. (7) Dyslipidemia: Hold statin while receiving daptomycin. (8) Hypothyroidism: TSH normal. Continue levothyroxine. (9) Anemia: Normocytic anemia, at least partly secondary to chronic infection. Hemoglobin 8.7 at time of admission and fell as low as 7.4. Serum iron 24, TIBC 251, ferritin 143. Vitamin B12, folic acid, and TSH normal. Transfuse with 1 unit of packed RBCs. Hemoglobin 12/13 = 10.9. (10) Dementia: Monitor for delirium. (11) Do not resuscitate status: As noted. (12) DVT prophylaxis: Continue warfarin. (13) Discharge planning issues: Anticipated discharge to home. Primary care follow-up with Dr. Magaña. Referral to Colorectal Surgery recommended. Jagdish Raygoza given update by phone. He is concerned that mental status and strength not yet back to baseline. Plans on visiting tomorrow to see how he is doing. Subjective Recheck for multiple problems. Patient seen in their room around 1500. Nurses report a bit more confusion today. Requiring 1 person assist with walker. No abdominal pain, nausea, vomiting, diarrhea. Review of Systems: Constitutional- no fever. Cardiac- no chest pain. Pulmonary- no cough or SOB. GI- as noted above. - no urinary symptoms.. Otherwise, as noted above. Physical Exam Constitutional: no acute distress Eyes: + anicteric sclerae Respiratory: no respiratory distress Auscultation: lungs clear to auscultation bilaterally Cardiovascular: Rate/Rhythm: + irregularly irregular Heart Sounds: no gallop Vessels: no JVD Extremities: + edema (1+ pretibial); no calf tenderness Gastrointestinal (Abdomen): normal bowel sounds, soft, nontender, no hepatosplenomegaly Skin: + rash (chronic venous stasis changes lower extremities) Psychiatric: Orientation: alert; + not oriented x 3 (person, hospital (but not name), not year, not president) Results & Data Vital Signs (Past 12 Hours) Vital Signs Temp Pulse Pulse Pulse Resp BP BP 04/04/19 16:15 71 04/04/19 15:00 36.6 C 52 L 17 120/77 04/04/19 09:18 73 116/52 L 04/04/19 06:57 36.5 C 59 L 16 112/72 Pulse Ox 04/04/19 16:15 04/04/19 15:00 92 04/04/19 09:18 04/04/19 06:57 95 Laboratory Results Laboratory Results - last 24 hr 04/04/19 08:09 PT 16.4 H INR 1.7 H (1) CAD (coronary artery disease) Associated angina: with stable angina Coronary Disease-Associated Artery/Lesion type: [place] artery [place] vs. transplanted heart: [place] heart Qualified Code(s): I25.118 - Atherosclerotic heart disease of [place] coronary artery with other forms of angina pectoris (2) Afib Atrial fibrillation type: unspecified Qualified Code(s): I48.91 - Unspecified atrial fibrillation (3) HTN (hypertension) Hypertension type: unspecified Qualified Code(s): I10 - Essential (primary) hypertension (4) Hypothyroidism Hypothyroidism type: acquired Qualified Code(s): E03.9 - Hypothyroidism, unspecified (5) Anemia Anemia type: unspecified type Qualified Code(s): D64.9 - Anemia, unspecified
[2019-04-04] MEDS: DAPTOmycin 400 MG in SYRINGE 0 ML IV SCH (19:41)
[2019-04-04] MEDS: ERTAPENEM SODIUM 1,000 MG in SODIUM CHLORIDE 0.9% 50 ML IV SCH (19:44)
[2019-04-05] MEDS: LEVOTHYROXINE SODIUM 88 MCG TABLET PO SCH (06:05)
[2019-04-05 07:04] VITALS: O2SAT 95
[2019-04-05] MEDS: DOCUSATE SODIUM 100 MG CAP PO SCH (09:50)
[2019-04-05] MEDS: POTASSIUM CHLORIDE 10 MEQ TABCR PO SCH (09:50)
[2019-04-05] MEDS: CHOLECALCIFEROL 1,000 UNITS 25 MCG TAB PO SCH (09:51)
[2019-04-05] MEDS: SPIRONOLACTONE 25 MG TAB PO SCH ×2 (09:51→15:31)
[2019-04-05] MEDS: carvediloL 3.125 MG TAB PO SCH ×2 (09:51→15:31)
[2019-04-05] MEDS: HEPARIN SOD 5,000 UNIT/0.5 ML VIAL SQ SCH (09:52)
[2019-04-05] MEDS: FERROUS GLUCONATE 324 MG TAB PO SCH (09:52)
[2019-04-05] MEDS: PANTOprazole 40 MG TAB PO SCH (09:52)
--- NOTE | 2019-04-05 13:48 | Hospitalist Progress Note ---
Date of Service April 05, 2019 Assessment & Plan (1) Jeanne-rectal abscess: Chronic/recurrent perirectal abscess with fistulae. Blood cultures negative. Wound cultures from November of this year grew Enterococcus faecium (VRE) and Citrobacter braakii. Seen in consultation by General Surgery and ID. IV antibiotic therapy with daptomycin and ertapenem recommended followed by oral therapy with levofloxacin and linezolid. Referral to Colorectal Surgery recommended. Dr. Magaña has made a referral for him to see a Colorectal Surgeon in [place]. (2) Perirectal fistula: As noted above. (3) Acute confusion: Metabolic encephalopathy secondary to infection. Improved, but still confused. ? near baseline. (4) CAD (coronary artery disease): No anginal symptoms. Continue carvedilol. Resume statin once daptomycin discontinued. (5) Afib: Rate controlled on digoxin and carvedilol. Continue anticoagulation with warfarin. (6) HTN (hypertension): Continue carvedilol and spironolactone. (7) Dyslipidemia: Hold statin while receiving daptomycin. (8) Hypothyroidism: TSH normal. Continue levothyroxine. (9) Anemia: Normocytic anemia, at least partly secondary to chronic infection. Hemoglobin 8.7 at time of admission and fell as low as 7.4. Serum iron 24, TIBC 251, ferritin 143. Vitamin B12, folic acid, and TSH normal. Transfuse with 1 unit of packed RBCs. Hemoglobin 12/13 = 10.9. (10) Dementia: Monitor for delirium. (11) Do not resuscitate status: As noted. (12) DVT prophylaxis: Continue SQ heparin until INR therapeutic. Titrate warfarin. (13) Discharge planning issues: Anticipated discharge to home. Primary care follow-up with Dr. Magaña. Referral to Colorectal Surgery recommended. Son Jaret given update this afternoon. Subjective Recheck for multiple problems. Patient seen in their room around 1130. No new problems. Passing soft stool without blood. No abdominal pain. 1-person assist with walker, Review of Systems: Constitutional- no fever. Cardiac- no chest pain. Pulmonary- no cough or SOB. GI- as noted above. - no urinary symptoms.. Otherwise, as noted above. Physical Exam Constitutional: no acute distress Eyes: + anicteric sclerae Respiratory: no respiratory distress Auscultation: lungs clear to auscultation bilaterally Cardiovascular: Rate/Rhythm: + irregularly irregular Heart Sounds: no gallop Vessels: no JVD Extremities: + edema (1+ pretibial); no calf tenderness Gastrointestinal (Abdomen): normal bowel sounds, soft, nontender, no hepatosplenomegaly Skin: + rash (chronic venous stasis changes lower extremities) Psychiatric: Orientation: alert; + not oriented x 3 Results & Data Vital Signs (Past 12 Hours) Vital Signs Temp Pulse Resp BP Pulse Ox 04/05/19 07:03 36.6 C 78 15 133/81 95 (1) CAD (coronary artery disease) Associated angina: with stable angina Coronary Disease-Associated Artery/Lesion type: [place] artery [place] vs. transplanted heart: [place] heart Qualified Code(s): I25.118 - Atherosclerotic heart disease of [place] coronary artery with other forms of angina pectoris (2) Afib Atrial fibrillation type: unspecified Qualified Code(s): I48.91 - Unspecified atrial fibrillation (3) HTN (hypertension) Hypertension type: unspecified Qualified Code(s): I10 - Essential (primary) hypertension (4) Hypothyroidism Hypothyroidism type: acquired Qualified Code(s): E03.9 - Hypothyroidism, unspecified (5) Anemia Anemia type: unspecified type Qualified Code(s): D64.9 - Anemia, unspecified
--- NOTE | 2019-04-05 14:28 | Discharge Summary ---
Date of Service April 05, 2019 Admission HPI Per Admitting Provider This is a 78-year-old male who has significant past medical history of chronic A. fib anticoagulated on Coumadin, CAD with history of stent, HTN, PAD, chronic venous insufficiency, BPH with chronic bladder outlet obstruction, hypothyroidism, gout, GERD, anemia, history of C. difficile infection who presents to [facility] ED secondary to weakness and abdominal pain x1 day. He lives at home with his son. When son came home from work this morning he noted his father unable to get out of bed and was very weak. Of significance patient recently confined 02/21-02/27 2019 secondary to severe sepsis and perirectal abscess. He required a 21-day course of antibiotics which he just finished 3 days ago. He just completed course of clindamycin, Levaquin and probiotic. Since discharge he has been doing well at home participating in home therapies and ambulating with his walker. Approximately 2 days ago he did have one episode of vomiting of unknown etiology. He also began developing abdominal pain. This morning when he went to get out of bed he was unable to do so due to weakness. When his son did help him stand he felt dizzy, "like the room was spinning." Home health nurse was in for visit at BP was 90/52. Per son BP is usually higher. Further complains he is always cold. Outside of peritoneal abscess he denies any recent illness, URI symptoms, fever, sweats, syncope, fall, chest pain, shortness of breath at rest, AGUILAR, cough, hemoptysis, nausea, diarrhea, hematochezia, melena, dysuria, increased frequency with urination, hematuria. Son states he has been compliant with his medications. Son feels patient appears more pale today. Since discharge she has otherwise been having a good appetite, no weight loss. In ED patient underwent CT scan of abdomen pelvis which reveals recurrent horseshoe-shaped perirectal perianal abscess drained 3.3 x 0.9 cm on the right and 3.1 in 0.6 cm on the left which is slightly more enlarged from prior. Of significance he did follow-up with Dr. Oconnell 03/06 in which abscesses had been well-healed. He is not septic on admission. He is afebrile and hemodynamically stable. His H&H is decreased to 8.7 and 27.1, WBC 5.61, platelet 170, sodium 138, K3.4, BUN 12, creatinine 0.73, lactic acid 1.33. Chest x-ray with cardiomegaly but without any acute cardiopulmonary disease. Head CT was negative for any acute abnormality but did reveal age-related changes including moderate patchy subcortical and periventricular microangiopathic changes. He received 1 L of IV fluid bolus while in ED along with additional liter of 250 mL/h. After consultation with pharmacy and ED provider he was started on IV ertapenem and daptomycin based on previous cultures that have grown out enterococcus and Citrobacter. Patient's past medical records reviewed and case was discussed with ED provider. Principal Diagnosis perirectal abscess + fistula Discharge Data Allergies Allergy/AdvReac Type Severity Reaction Status Date / Time amoxicillin Allergy Intermediate RASH, Verified 03/26/19 16:18 ITCHING cephalexin Allergy Intermediate RASH,ITCHIN Verified 03/26/19 16:18 G Cipro Allergy Intermediate RASH Verified 06/22/17 15:22 ciprofloxacin Allergy Intermediate RASH Verified 03/26/19 16:18 clavulanic acid Allergy Intermediate RASH, Verified 03/26/19 16:18 ITCHING Penicillins Allergy Intermediate AUGMENTIN-R Verified 03/26/19 16:18 KITTY,ITCHING morphine Allergy Mild RASH Verified 03/26/19 16:18 sulfamethoxazole Allergy Mild Rash Verified 03/26/19 16:18 [From Bactrim] trimethoprim [From Bactrim] Allergy Mild Rash Verified 03/26/19 16:18 Consultations 03/26/19 21:54 Consult Case Management - Discharge Planning Routine Consult General Surgery Routine 03/30/19 08:55 Consult Infectious Diseases Routine 04/05/19 13:20 Burn CD for patient Routine Ordered Studies 03/26/19 15:49 CT abd pelvis IV con only Stat CT head/brain wo con Stat 03/30/19 11:25 US venous doppler LE BI Routine Hospital Course (1) Jeanne-rectal abscess: Chronic/recurrent perirectal abscess with fistulae. Blood cultures negative. Wound cultures from November of this year grew Enterococcus faecium (VRE) and Citrobacter braakii. Seen in consultation by General Surgery and ID. IV antibiotic therapy with daptomycin and ertapenem recommended followed by oral therapy with levofloxacin and linezolid to complete total of 28 days of therapy. Referral to Colorectal Surgery recommended. Dr. Magaña has made a referral for him to see a Colorectal Surgeon in [place]. (2) Perirectal fistula: As noted above. (3) Acute confusion: Metabolic encephalopathy secondary to infection. Improved. (4) CAD (coronary artery disease): No anginal symptoms. Continue carvedilol. Resume statin once daptomycin discontinued. (5) Afib: Rate controlled on digoxin and carvedilol. Continue anticoagulation with warfarin. (6) HTN (hypertension): Continue carvedilol and spironolactone. (7) Dyslipidemia: Held statin while receiving daptomycin. (8) Hypothyroidism: TSH normal. Continue levothyroxine. (9) Anemia: Normocytic anemia, at least partly secondary to chronic infection. Hemoglobin 8.7 at time of admission and fell as low as 7.4. Serum iron 24, TIBC 251, ferritin 143. Vitamin B12, folic acid, and TSH normal. Transfused with 1 unit of packed RBCs. Hemoglobin 12/13 = 10.9. Follow. (10) Dementia: Monitor for delirium. (11) Do not resuscitate status: As noted. (12) DVT prophylaxis: Received SQ heparin due to subtherapeutic INR. Titrate warfarin. (13) Discharge planning issues: Discharged to home with home health services. Primary care follow-up with Dr. Magaña. Arrangements made for outpatient Colorectal Surgery consultation 04/06. Copies of CT images, labs, and consultations will be provided. Total Time Total Time Spent Total Time Spent (In Minutes): 50 Discharge Plan Discharge Items Patient Disposition: Home - Home Health Services Reason For Visit: PERIRECTAL ABSCESS Discharge Diagnosis: PERIRECTAL ABSCESS Condition on Discharge: Good Activity: As commented below Activity Comment: use walker and assistance to avoid falls Non-emergency contact: Primary Care Provider, Hospitalist and Surgeon Call non-emergency contact if: you have any medication questions, your symptoms worsen and your temperature is above 101 Follow-up/Referrals: Evans Magaña [Primary Care Provider] - Diet: Carb Consistent or DM2 and Heart Healthy Addtl Attending Provider Instructions: MEDICATION CHANGES: Take antibiotics until finished: linezolid (Zyvox) 600 mg twice a day levofloxacin (Levaquin) 750 mg daily Take probiotic Lactinex to help prevent C diff. 4 pills with each meal SUMMARY OF TEST RESULTS: CT scan showed persistent perirectal abscess. RECOMMENDATIONS FOR FOLLOW-UP: Follow-up with colorectal surgery as scheduled. Please take records and copies of CT to appointment. INR to monitor warfarin (Coumadin) should be checked frequently while taking antibiotics. OTHER INSTRUCTIONS: Low tyramine diet while taking linezolid (Zyvox). Avoid things like aged cheese, sausage, pepperoni, sauerkraut, red wine, beer. Seek medical attention if you have: * temperature above 101 * chest pain or trouble breathing * abdominal pain, nausea, vomiting * diarrhea, dark stools or bloody stools * any unanswered questions or concerns Call 242 if symptoms are severe. Please take good care of yourself. Call if you have any questions or problems. You can reach a [facility] hospitalist on duty at [facility] 24 hours a day by calling [phone]. My cell # is [phone]. Pending Studies at Discharge: No Stand-Alone Forms: My [facility], Smoking Cessation Medications and DC Order Prescriptions: New linezolid 600 mg tablet 600 mg PO BID Qty: 36 RF: 0 levofloxacin [Levaquin] 750 mg tablet 750 mg PO DAILY Qty: 18 RF: 0 Lactinex 1 million cell tablet,chewable 4 tab PO TIDM Qty: 120 RF: 1 Continued atorvastatin 10 mg tablet 10 mg PO QAM RF: 0 carvedilol [Coreg] 3.125 mg tablet 3.125 mg PO BIDM RF: 0 levothyroxine 88 mcg capsule 88 mcg PO QAM RF: 0 spironolactone 25 mg tablet 25 mg PO BID RF: 0 potassium chloride [Klor-Con 10] 10 mEq tablet extended release 10 meq PO QAM RF: 0 docusate sodium [Colace] 100 mg Capsule 100 mg PO BID RF: 0 digoxin 125 mcg tablet 125 mcg PO QAM RF: 0 pantoprazole 40 mg tablet,delayed release (DR/EC) 40 mg PO QAM RF: 0 warfarin [Jantoven] 4 mg Tablet 4 mg PO Q OTHER DAY RF: 0 warfarin [Coumadin] 2 mg Tablet 2 mg PO Q OTHER DAY RF: 0 acetaminophen [Tylenol Extra Strength] 500 mg Tablet 500 mg PO Q6H PRN (Reason: Pain) RF: 0 cholecalciferol (vitamin D3) [Vitamin D3] 25 mcg (1,000 unit) Tablet 1,000 unit PO QAM 30 Days Qty: 30 RF: 1 Discharge Orders: Discharge Order (Routine); Ordered 04/05/19 Ordered By: Juan Manuel Du Admission Data Admit Date/Time: 03/26/19 20:56 Attending Provider: Juan Manuel Du Admit Provider: Allie Linton Primary Care Provider: Evans Magaña Other Providers: Marcellus Gonzalez ; Ewelina Vargas ; Héctor Matias Other Interventions: Discharge Summary Assessment (RN) Last Done: 04/05/19 14:43 DC Date/Time DO NOT enter until pt leaves facility: 04/05/19 16:35
[2019-04-05 14:50] VITALS: BP 112/72
[2019-04-05] MEDS: DIGOXIN 0.125 MG TAB PO SCH (15:30)
[2019-04-05] MEDS: WARFARIN SOD 5 MG TAB PO SCH (15:31)
[2019-04-05 15:32] VITALS: PULSE 66
== END 2019-04-05 16:35 | disposition home health service (06) | DRG 393 ==
LOC: ED 13:39 → SUATTDRO 20:56 → 3W 20:56